=== PATIENT | female | born 1950 | race Caucasian/White ===

== ENCOUNTER → 2020-05-23 11:57 | Outpatient (BNVA) | payer MEDICARE, SELFPAY | PROVIDERS: PCP Internal Medicine; Referring Provider Internal Medicine; Visit Provider Internal Medicine Endocrinology, Diabetes & Metabolism | DX: Z13.89 Encounter for screening for other disorder (principal) | CPT/HCPCS: Q3014 ==

== ENCOUNTER 2020-06-06 12:49 | Emergency (ER) | payer MEDICARE, SELFPAY ==
--- NOTE | 2020-06-06 13:38 | ECG_ITS ---
Test Reason : DIZINESS Blood Pressure : / mmHG Vent. Rate : 080 BPM Atrial Rate : 080 BPM P-R Int : 136 ms QRS Dur : 086 ms QT Int : 378 ms P-R-T Axes : 057 010 003 degrees QTc Int : 435 ms Normal sinus rhythm Normal ECG When compared with ECG of 16-MAR-2019 14:21, No significant change was found Referred By: Christofer Wheatley Electronically Signed By:MEGAN AVALOS MD
--- NOTE | 2020-06-06 13:38 | XR_ITS ---
EXAMINATION: XR CHEST CLINICAL INFORMATION: Dizziness, pain COMPARISON: Chest radiographs 03/16/2019, 11/15/2018 TECHNIQUE: Portable semiupright AP view of the chest was obtained. FINDINGS: The lungs are clear. The vascularity is normal. There is no pneumothorax or pleural reaction. No airspace consolidation or groundglass opacity. No effusion. The costophrenic sulci are well-defined. The heart is normal in size. The hilar and mediastinal contours are normal. There is a mild levocurvature thoracic spine. XR/XR chest 1V IMPRESSION: Unremarkable examination.
--- NOTE | 2020-06-06 13:47 | ED_ITS ---
HPI - Dizziness General Chief Complaint: General Medical <Christofer Wheatley NP - Last Filed: 06/06/20 17:41> Stated Complaint: high blood pressure <Christofer Wheatley NP - Last Filed: 06/06/20 17:41> Time Seen by Provider: 06/06/20 12:51 <Christofer Wheatley NP - Last Filed: 06/06/20 17:41> Source: patient <Christofer Wheatley NP - Last Filed: 06/06/20 17:41> Mode of arrival: ambulatory <Christofer Wheatley NP - Last Filed: 06/06/20 17:41> Limitations: no limitations <Christofer Wheatley NP - Last Filed: 06/06/20 17:41> History of Present Illness HPI Narrative: This is a 69-year-old female who speaks primarily Wolof but does understand Welsh enough to communicate however intelligence clerk present she has a history of insulin-dependent diabetes, hypertension, hyperlipidemia, migraine headaches, osteoporosis, chronic back pain, fibromyalgia, anxiety and depression she presents ambulatory via triage from her primary care doctor's office with complaint of on and off dizziness as well as some nausea, sweating, palpitation since yesterday she went to her primary care doctor for this with these complaints and reported that she awfully gets these symptoms in the morning when she takes her Diovan. Noted to have blood pressure 210/98 in the office subsequently had an EKG that was nondiagnostic and advised to come here given her constellation of symptoms. upon arrival intelligence clerk present for interview she reports to me that she has a RN TRAVEL that helps her however the RN TRAVEL takes care of 3 other individuals and she is in her house and is afraid that she might give her COVID- 19. States she has been increasingly anxious and has slept in over 24 hours because of this thought. She does report some slight rhinorrhea and congestion for past couple of days which she completed beats to seasonal change. She denies any chest pain or shortness of breath right now. No fever or chills. <Christofer Wheatley NP - Last Filed: 06/06/20 17:41> Related Data Home Medications: Home Medications Medication Instructions Recorded Confirmed albuterol sulfate 90 mcg/actuation 0 mcg INHALATION 05/23/20 05/23/20 aerosol inhaler aspirin 81 mg tablet,delayed 81 mg PO DAILY 05/23/20 05/23/20 release cholecalciferol (vitamin D3) 50 50 mcg PO DAILY 05/23/20 05/23/20 mcg (2,000 unit) capsule citalopram 10 mg tablet 10 mg PO DAILY 05/23/20 05/23/20 clonazepam 0.5 mg tablet 0.5 mg PO DAILY PRN 05/23/20 05/23/20 insulin glargine 100 unit/mL (3 30 unit SUBCUT QPM ml 05/23/20 05/23/20 mL) subcutaneous pen lancets 33 gauge #100 ea 05/23/20 05/23/20 meloxicam 15 mg tablet 15 mg PO DAILY 05/23/20 05/23/20 metformin 850 mg tablet 850 mg PO BID 05/23/20 05/23/20 peg [id number] 1 1 drp OPHTHALMIC (EYE) DAILY ml 05/23/20 05/23/20 %-0.2 %-0.2 % eye drops pen needle, diabetic 32 gauge x #50 ea 05/23/20 05/23/20 5/32 polyvinyl alcohol 1.4 % eye drops 1 drp OPHTHALMIC (EYE) TID 05/23/20 05/23/20 topiramate 50 mg tablet 50 mg PO BID 05/23/20 05/23/20 valsartan 160 mg tablet 160 mg PO DAILY 05/23/20 05/23/20 white petrolatum-mineral oil 83 1 applic OPHTHALMIC (EYE) DAILY 05/23/20 %-15 % eye ointment PRN g Previous Rx's Medication Instructions Recorded blood sugar diagnostic #150 ea 05/18/20 simvastatin 40 mg tablet 40 mg PO BEDTIME 30 Days #30 tab 05/18/20 cholecalciferol (vitamin D3) 50 50 mcg PO DAILY 30 Days #30 cap 05/23/20 mcg (2,000 unit) capsule insulin lispro 100 unit/mL See Rx Instructions SUBCUT TID 30 06/18/20 subcutaneous pen Days #15 ml <Christofer Wheatley NP - Last Filed: 06/06/20 17:41> Allergies/Adverse Reactions: Allergies Allergy/AdvReac Type Severity Reaction Status Date / Time homosalate [From Coppertone] Allergy Mild RASH Unverified 03/22/20 15:57 octinoxate [From Coppertone] Allergy Mild RASH Unverified 03/22/20 15:57 oxybenzone [From Coppertone] Allergy Mild RASH Unverified 03/22/20 15:57 diovan Allergy Unknown rash Uncoded 02/14/20 00:00 suntan lotion Allergy Unknown rash Uncoded 02/14/20 00:00 <Christofer Wheatley NP - Last Filed: 06/06/20 17:41> Review of Systems Review of Systems: Constitutional: No Weight loss, No Fever, No Chills, No Night Sweats, No Fatigue, No Malaise ENT/Mouth: No Hearing loss, No Ear Pain, No Nasal Congestion, No Sinus Pain, No Hoarseness, No sore throat, No Rhinorrhea, No Swallowing Difficulty Eyes: No Eye Pain, No Swelling, No Redness, No Foreign Body, No Discharge, No Vision Changes Cardiovascular: No Chest Pain, No SOB, No Dyspnea on Exertion, No Orthopnea, No Edema, No Palpitations Respiratory: No Cough, No Sputum, No Wheezing, No Smoke Exposure, No Dyspnea Gastrointestinal: No Nausea, No Vomiting, No Diarrhea, No Constipation, No a bdominal Pain, No Hematochezia, No Melena Genitourinary: no irregular bleeding, No Dysuria, No Urinary Frequency, No Hematuria, No Urinary Incontinence, No Urgency, No Flank Pain, No Urinary Flow Changes, No Hesitancy Musculoskeletal: No joint pain, No Myalgias, No Joint Swelling Skin: No Skin Lesions, No rash Neuro: No Weakness, No Numbness, No Paresthesias, No Loss of Consciousness, No Dizziness, No Headache Psych: No Anxiety/Panic, No Depression, No SI/HI/AH/VH, No Social Issues, Heme/Lymph: No Bruising, No Bleeding,No Lymphadenopathy Endocrine: No Polyuria, No Polydipsia, No Temperature Intolerance <Christofer Wheatley NP - Last Filed: 06/06/20 17:41> Yes all other systems are reviewed and are negative <Christofer Wheatley NP - Last Filed: 06/06/20 17:41> [facility] Past Medical History Medical History: Medical History (Updated 06/07/20 @ 00:00 by Jorge Dafabiola) Depression Diabetes type 2, uncontrolled Diabetic polyneuropathy associated with type 2 diabetes mellitus Dyslipidemia Fibromyalgia Hypertension 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 Lung cancer Obesity (BMI 30-39.9) Vitamin D deficiency <Christofer Wheatley NP - Last Filed: 06/06/20 17:41> Surgical History: Surgical History (Updated 05/23/20 @ 11:51 by VITALIY Magallon) No pertinent past surgical history <Christofer Wheatley NP - Last Filed: 06/06/20 17:41> Family History Family History: Family History (Updated 05/23/20 @ 11:58 by VITALIY Magallon) Father Osteoporosis Mother Stroke Cancer <Christofer Wheatley NP - Last Filed: 06/06/20 17:41> Social History Social History: Social History (Updated 05/23/20 @ 11:51 by VITALIY Magallon) Smoking Status: Former smoker Advance Directives: No Advance Directives Information Provided: No <Christofer Wheatley NP - Last Filed: 06/06/20 17:41> Physical Exam Vital Signs: Vital Signs: Last Vital Signs Temp 98 F 06/06/20 14:49 Pulse 81 06/06/20 14:49 Resp 16 06/06/20 14:49 BP 133/71 06/06/20 14:49 Pulse Ox 97 06/06/20 14:49 Body Mass Index 25.0 Reviewed <Christofer Wheatley NP - Last Filed: 06/06/20 17:41> Vital Signs: Last Vital Signs Temp 98 F 06/06/20 14:49 Pulse 81 06/06/20 14:49 Resp 16 06/06/20 14:49 BP 133/71 06/06/20 14:49 Pulse Ox 97 06/06/20 14:49 Body Mass Index 25.0 <Drew Negrete MD - Last Filed: 06/29/20 08:18> Const: Other: Became tearful right away and more tearful when she told a story of her RN TRAVEL coming to her house and may give her COVID-19 <Christofer Wheatley NP - Last Filed: 06/06/20 17:41> General: cooperative; No acute distress or intoxicated appearing <Christofer Wheatley NP - Last Filed: 06/06/20 17:41> Nutritional Appearance: average body habitus <Christofer Wheatley NP - Last Filed: 06/06/20 17:41> Orientation/consciousness: patient oriented x3 <[facility] Wheatley - Last Filed: 06/06/20 17:41> HENMT: Head: Yes normal to inspection <[facility] Wheatley - Last Filed: 06/06/20 17:41> Ears: hearing grossly normal bilaterally <[facility] Wheatley - Last Filed: 06/06/20 17:41> Eyes: General: appearance normal, both eyes and all related structures <[facility] Wheatley - Last Filed: 06/06/20 17:41> Visual Chan: normal visual chan by confrontation <[facility] Whaetley, - Last Filed: 06/06/20 17:41> Neck: Neck: Yes normal visual inspection and No tender <[facility] Wheatley - Last Filed: 06/06/20 17:41> Thyroid: Thyroid normal [facility] Last Filed: 06/06/20 17:41> Chest: Chest palpation & inspection: normal inspection of the chest <[facility] Wheatley, - Last Filed: 06/06/20 17:41> Resp: Effort & Inspection: normal respiratory effort <[facility] Wheatley, - Last Filed: 06/06/20 17:41> Auscultation: clear to auscultation bilaterally <[facility] Wheatley - Last Filed: 06/06/20 17:41> Cardio: Jugular venous distension: no JVD <[facility] Dioni - Last Filed: 06/06/20 17:41> Rate: regular rate <[facility] Wheatley, - Last Filed: 06/06/20 17:41> Rhythm: regular rhythm [facility] - Last Filed: 06/06/20 17:41> Heart sounds: S1 normal heart sound present <[facility] Dioni - Last Filed: 06/06/20 17:41> GI: Inspection: Yes normal to inspection <[facility] - Last Filed: 06/06/20 17:41> Percussion: Yes normal to percussion <[facility] Dioni - Last Filed: 06/06/20 17:41> Auscultation: normal bowel sounds <Christofer Wheatley NP - Last Filed: 06/06/20 17:41> : General: Yes no CVA tenderness <Christofer Wheatley NP - Last Filed: 06/06/20 17:41> Back/Spine/Pelvis: Back: no CVA tenderness <Christofer Wheatley NP - Last Filed: 06/06/20 17:41> Skin: General skin exam: no rashes or lesions noted <Christofer Wheatley NP - Last Filed: 06/06/20 17:41> Neuro: General: patient oriented x3 <Christofer Wheatley NP - Last Filed: 06/06/20 17:41> Extrem: General: Yes normal to inspection <Christofer Wheatley NP - Last Filed: 06/06/20 17:41> Course Course Course Narrative: I have reviewed the chart <Drew Negrete MD - Last Filed: 06/29/20 08:18> MDM - Dizziness MDM Narrative Medical decision making narrative: labs overall stable including serial tropes given her cardiac risk factors / heart score this was negative. Blood pressure improved with 0.5 mg of Ativan she was much calmer and her blood pressure is 136/70 after the Ativan. Patient resting comfortably states she feels much less anxious and better now. Advised that COVID-19 is pending she has no complaints of pain or discomfort. Hemodynamically stable. Pulse ox 100%. Will discharge home with clear precaution return follow-up instructions. medical services assistant//support offered here she will follow-up with her PCP. <Christofer Wheatley NP - Last Filed: 06/06/20 17:41> Medical Records Attestation: I reviewed the patient's medical records. <Chrsitofer Wheatley NP - Last Filed: 06/06/20 17:41> Lab Data Attestation: I reviewed the patient's lab results. <Christofer Wheatley NP - Last Filed: 06/06/20 17:41> Result diagrams: : 06/06/20 14:20 06/06/20 15:40 <Christofer Wheatley NP - Last Filed: 06/06/20 17:41> Labs: Lab Results 06/06/20 06/06/20 06/06/20 Range/Units 14:20 14:20 14:20 WBC 9.4 (4.8-10.8) X10*3/uL RBC 4.60 (4.20-5.50) X10*6/uL Hgb 14.2 (12.0-16.0) g/dl Hct 42.6 (37-47) % MCV 92.6 (80-98) fL MCH 30.9 (27.0-33.0) pg MCHC 33.3 (31.0-35.0) g/dl RDW 12.1 (11.0-16.0) % Plt Count 254 (160-400) X10*3/uL MPV 11.6 (9.4-12.3) fL Immature Gran % (Auto) 0.2 (0.0-0.4) % Neut % (Auto) 75.5 H (45-73) % Lymph % (Auto) 20.2 (20-40) % [place] % (Auto) 3.9 (2-11) % Eos % (Auto) 0.1 (0-4) % Baso % (Auto) 0.1 (0-2) % Lymph # (Auto) 1.9 (1.2-4.9) X10*3/uL [place] # (Auto) 0.4 (0.1-1.2) X10*3/uL Eos # (Auto) 0.0 (0.0-0.4) X10*3/uL Baso # (Auto) 0.0 (0.0-0.2) X10*3/uL Abs Immat Gran (auto) 0.02 (0.00-0.03) X10*3/uL Absolute Neuts (auto) 7.1 (2.0-8.3) X10*3/uL Absolute Nucleated RBC 0.000 (0.0-0.012) X10*3/uL Nucleated RBC % (auto) 0.0 (0.0-0.2) /100WBC PT (10.8-13.0) SEC INR (0.9-1.1) APTT (24.1-38.0) SEC Sodium Cancelled Potassium Cancelled Chloride Cancelled Carbon Dioxide Cancelled Anion Gap Cancelled BUN Cancelled Creatinine Cancelled Estim Creat Clear Calc Cancelled Estimated GFR Cancelled Random Glucose Cancelled Calcium Cancelled Magnesium Cancelled Total Bilirubin Cancelled AST Cancelled ALT Cancelled Alkaline Phosphatase Cancelled Troponin I High Sens 4.8 (<3.5-17.0) ng/L Total Protein Cancelled Albumin Cancelled TSH Cancelled Urine Opiates Screen (Not Detect) Ur Barbiturates Screen (Not Detect) Ur Phencyclidine Scrn (Not Detect) Ur Amphetamines Screen (Not Detect) U Benzodiazepines Scrn (Not Detect) Urine Cocaine Screen (Not Detect) U Marijuana (THC) Screen (Not Detect) SARS-CoV-2 (PCR) (NOT DETECTED) 06/06/20 06/06/20 06/06/20 Range/Units 14:20 14:20 15:23 WBC (4.8-10.8) X10*3/uL RBC (4.20-5.50) X10*6/uL Hgb (12.0-16.0) g/dl Hct (37-47) % MCV (80-98) fL MCH (27.0-33.0) pg MCHC (31.0-35.0) g/dl RDW (11.0-16.0) % Plt Count (160-400) X10*3/uL MPV (9.4-12.3) fL Immature Gran % (Auto) (0.0-0.4) % Neut % (Auto) (45-73) % Lymph % (Auto) (20-40) % [place] % (Auto) (2-11) % Eos % (Auto) (0-4) % Baso % (Auto) (0-2) % Lymph # (Auto) (1.2-4.9) X10*3/uL [place] # (Auto) (0.1-1.2) X10*3/uL Eos # (Auto) (0.0-0.4) X10*3/uL Baso # (Auto) (0.0-0.2) X10*3/uL Abs Immat Gran (auto) (0.00-0.03) X10*3/uL Absolute Neuts (auto) (2.0-8.3) X10*3/uL Absolute Nucleated RBC (0.0-0.012) X10*3/uL Nucleated RBC % (auto) (0.0-0.2) /100WBC PT 13.2 H (10.8-13.0) SEC INR 1.1 (0.9-1.1) APTT 30.7 (24.1-38.0) SEC Sodium Potassium Chloride Carbon Dioxide Anion Gap BUN Creatinine Estim Creat Clear Calc Estimated GFR Random Glucose Calcium Magnesium Total Bilirubin AST ALT Alkaline Phosphatase Troponin I High Sens Cancelled (<3.5-17.0) ng/L Total Protein Albumin TSH Urine Opiates Screen Not Detected (Not Detect) Ur Barbiturates Screen Not Detected (Not Detect) Ur Phencyclidine Scrn Not Detected (Not Detect) Ur Amphetamines Screen Not Detected (Not Detect) U Benzodiazepines Scrn Not Detected (Not Detect) Urine Cocaine Screen Not Detected (Not Detect) U Marijuana (THC) Screen Not Detected (Not Detect) SARS-CoV-2 (PCR) (NOT DETECTED) 06/06/20 06/06/20 06/06/20 Range/Units 15:40 15:40 17:01 WBC (4.8-10.8) X10*3/uL RBC (4.20-5.50) X10*6/uL Hgb (12.0-16.0) g/dl Hct (37-47) % MCV (80-98) fL MCH (27.0-33.0) pg MCHC (31.0-35.0) g/dl RDW (11.0-16.0) % Plt Count (160-400) X10*3/uL MPV (9.4-12.3) fL Immature Gran % (Auto) (0.0-0.4) % Neut % (Auto) (45-73) % Lymph % (Auto) (20-40) % [place] % (Auto) (2-11) % Eos % (Auto) (0-4) % Baso % (Auto) (0-2) % Lymph # (Auto) (1.2-4.9) X10*3/uL [place] # (Auto) (0.1-1.2) X10*3/uL Eos # (Auto) (0.0-0.4) X10*3/uL Baso # (Auto) (0.0-0.2) X10*3/uL Abs Immat Gran (auto) (0.00-0.03) X10*3/uL Absolute Neuts (auto) (2.0-8.3) X10*3/uL Absolute Nucleated RBC (0.0-0.012) X10*3/uL Nucleated RBC % (auto) (0.0-0.2) /100WBC PT (10.8-13.0) SEC INR (0.9-1.1) APTT (24.1-38.0) SEC Sodium 135 Potassium 4.7 Chloride 101 Carbon Dioxide 28 Anion Gap 11 L BUN 10 Creatinine 0.79 Estim Creat Clear Calc 67.2 Estimated GFR > 60 Random Glucose 303 H Calcium 8.7 Magnesium 1.9 Total Bilirubin 0.5 AST 21 ALT 25 Alkaline Phosphatase 74 Troponin I High Sens 5.0 (<3.5-17.0) ng/L Total Protein 7.2 Albumin 3.9 TSH 0.86 Urine Opiates Screen (Not Detect) Ur Barbiturates Screen (Not Detect) Ur Phencyclidine Scrn (Not Detect) Ur Amphetamines Screen (Not Detect) U Benzodiazepines Scrn (Not Detect) Urine Cocaine Screen (Not Detect) U Marijuana (THC) Screen (Not Detect) SARS-CoV-2 (PCR) NOT DETECTED (NOT DETECTED) <Christofer Wheatley [employer] - Last Filed: 06/06/20 17:41> Lab Results 06/06/20 06/06/20 06/06/20 Range/Units 14:20 14:20 14:20 WBC 9.4 (4.8-10.8) X10*3/uL RBC 4.60 (4.20-5.50) X10*6/uL Hgb 14.2 (12.0-16.0) g/dl Hct 42.6 (37-47) % MCV 92.6 (80-98) fL MCH 30.9 (27.0-33.0) pg MCHC 33.3 (31.0-35.0) g/dl RDW 12.1 (11.0-16.0) % Plt Count 254 (160-400) X10*3/uL MPV 11.6 (9.4-12.3) fL Immature Gran % (Auto) 0.2 (0.0-0.4) % Neut % (Auto) 75.5 H (45-73) % Lymph % (Auto) 20.2 (20-40) % [place] % (Auto) 3.9 (2-11) % Eos % (Auto) 0.1 (0-4) % Baso % (Auto) 0.1 (0-2) % Lymph # (Auto) 1.9 (1.2-4.9) X10*3/uL [place] # (Auto) 0.4 (0.1-1.2) X10*3/uL Eos # (Auto) 0.0 (0.0-0.4) X10*3/uL Baso # (Auto) 0.0 (0.0-0.2) X10*3/uL Abs Immat Gran (auto) 0.02 (0.00-0.03) X10*3/uL Absolute Neuts (auto) 7.1 (2.0-8.3) X10*3/uL Absolute Nucleated RBC 0.000 (0.0-0.012) X10*3/uL Nucleated RBC % (auto) 0.0 (0.0-0.2) /100WBC PT (10.8-13.0) SEC INR (0.9-1.1) APTT (24.1-38.0) SEC Sodium Cancelled Potassium Cancelled Chloride Cancelled Carbon Dioxide Cancelled Anion Gap Cancelled BUN Cancelled Creatinine Cancelled Estim Creat Clear Calc Cancelled Estimated GFR Cancelled Random Glucose Cancelled Calcium Cancelled Magnesium Cancelled Total Bilirubin Cancelled AST Cancelled ALT Cancelled Alkaline Phosphatase Cancelled Troponin I High Sens 4.8 (<3.5-17.0) ng/L Total Protein Cancelled Albumin Cancelled TSH Cancelled Urine Opiates Screen (Not Detect) Ur Barbiturates Screen (Not Detect) Ur Phencyclidine Scrn (Not Detect) Ur Amphetamines Screen (Not Detect) U Benzodiazepines Scrn (Not Detect) Urine Cocaine Screen (Not Detect) U Marijuana (THC) Screen (Not Detect) SARS-CoV-2 (PCR) (NOT DETECTED) 06/06/20 06/06/20 06/06/20 Range/Units 14:20 14:20 15:23 WBC (4.8-10.8) X10*3/uL RBC (4.20-5.50) X10*6/uL Hgb (12.0-16.0) g/dl Hct (37-47) % MCV (80-98) fL MCH (27.0-33.0) pg MCHC (31.0-35.0) g/dl RDW (11.0-16.0) % Plt Count (160-400) X10*3/uL MPV (9.4-12.3) fL Immature Gran % (Auto) (0.0-0.4) % Neut % (Auto) (45-73) % Lymph % (Auto) (20-40) % [place] % (Auto) (2-11) % Eos % (Auto) (0-4) % Baso % (Auto) (0-2) % Lymph # (Auto) (1.2-4.9) X10*3/uL [place] # (Auto) (0.1-1.2) X10*3/uL Eos # (Auto) (0.0-0.4) X10*3/uL Baso # (Auto) (0.0-0.2) X10*3/uL Abs Immat Gran (auto) (0.00-0.03) X10*3/uL Absolute Neuts (auto) (2.0-8.3) X10*3/uL Absolute Nucleated RBC (0.0-0.012) X10*3/uL Nucleated RBC % (auto) (0.0-0.2) /100WBC PT 13.2 H (10.8-13.0) SEC INR 1.1 (0.9-1.1) APTT 30.7 (24.1-38.0) SEC Sodium Potassium Chloride Carbon Dioxide Anion Gap BUN Creatinine Estim Creat Clear Calc Estimated GFR Random Glucose Calcium Magnesium Total Bilirubin AST ALT Alkaline Phosphatase Troponin I High Sens Cancelled (<3.5-17.0) ng/L Total Protein Albumin TSH Urine Opiates Screen Not Detected (Not Detect) Ur Barbiturates Screen Not Detected (Not Detect) Ur Phencyclidine Scrn Not Detected (Not Detect) Ur Amphetamines Screen Not Detected (Not Detect) U Benzodiazepines Scrn Not Detected (Not Detect) Urine Cocaine Screen Not Detected (Not Detect) U Marijuana (THC) Screen Not Detected (Not Detect) SARS-CoV-2 (PCR) (NOT DETECTED) 06/06/20 06/06/2020 Range/Units 15:40 15:40 17:01 WBC (4.8-10.8) X10*3/uL RBC (4.20-5.50) X10*6/uL Hgb (12.0-16.0) g/dl Hct (37-47) % MCV (80-98) fL MCH (27.0-33.0) pg MCHC (31.0-35.0) g/dl RDW (11.0-16.0) % Plt Count (160-400) X10*3/uL MPV (9.4-12.3) fL Immature Gran % (Auto) (0.0-0.4) % Neut % (Auto) (45-73) % Lymph % (Auto) (20-40) % [place] % (Auto) (2-11) % Eos % (Auto) (0-4) % Baso % (Auto) (0-2) % Lymph # (Auto) (1.2-4.9) X10*3/uL [place] # (Auto) (0.1-1.2) X10*3/uL Eos # (Auto) (0.0-0.4) X10*3/uL Baso # (Auto) (0.0-0.2) X10*3/uL Abs Immat Gran (auto) (0.00-0.03) X10*3/uL Absolute Neuts (auto) (2.0-8.3) X10*3/uL Absolute Nucleated RBC (0.0-0.012) X10*3/uL Nucleated RBC % (auto) (0.0-0.2) /100WBC PT (10.8-13.0) SEC INR (0.9-1.1) APTT (24.1-38.0) SEC Sodium 135 Potassium 4.7 Chloride 101 Carbon Dioxide 28 Anion Gap 11 L BUN 10 Creatinine 0.79 Estim Creat Clear Calc 67.2 Estimated GFR > 60 Random Glucose 303 H Calcium 8.7 Magnesium 1.9 Total Bilirubin 0.5 AST 21 ALT 25 Alkaline Phosphatase 74 Troponin I High Sens 5.0 (<3.5-17.0) ng/L Total Protein 7.2 Albumin 3.9 TSH 0.86 Urine Opiates Screen (Not Detect) Ur Barbiturates Screen (Not Detect) Ur Phencyclidine Scrn (Not Detect) Ur Amphetamines Screen (Not Detect) U Benzodiazepines Scrn (Not Detect) Urine Cocaine Screen (Not Detect) U Marijuana (THC) Screen (Not Detect) SARS-CoV-2 (PCR) NOT DETECTED (NOT DETECTED) <Drew Negrete MD - Last Filed: 06/29/20 08:18> Discharge Plan Discharge Clinical Impression: Anxiety about health, Anxiety disorder Hypertension Qualifiers: Hypertension type: essential hypertension Qualified Code(s): I10 - Essential (primary) hypertension <Christofer Wheatley NP - Last Filed: 06/06/20 17:41> Patient Disposition: Home, Self-Care <Christofer Wheatley NP - Last Filed: 06/06/20 17:41> Instructions: Hypertension (ED), Anxiety (ED) <Christofer Wheatley NP - Last Filed: 06/06/20 17:41> Prescriptions: No Action (DME) FreeStyle Lite Strips Strip See Rx Instructions .ROUTE .MEDSUPPLY Qty: 150 RF: 5 simvastatin 40 mg tablet 40 mg PO BEDTIME 30 Days Qty: 30 RF: 5 insulin lispro [Humalog KwikPen Insulin] 100 unit/mL insulin pen See Rx Instructions subcut TID 30 Days Qty: 15 RF: 6 albuterol sulfate 90 mcg/actuation HFA aerosol inhaler 0 mcg inhalation RF: 0 (DME) pen needle, diabetic 32 gauge x 5/32 needle See Rx Instructions ea subcut .MEDSUPPLY Qty: 50 RF: 0 cholecalciferol (vitamin D3) 50 mcg (2,000 unit) capsule 50 mcg PO DAILY RF: 0 topiramate 50 mg tablet 50 mg PO BID RF: 0 Artificial Tears([id number]) 1-0.2-0.2 % drops 1 drp ophthalmic (eye) DAILY RF: 0 metformin 850 mg tablet 850 mg PO BID RF: 0 meloxicam 15 mg tablet 15 mg PO DAILY RF: 0 citalopram 10 mg tablet 10 mg PO DAILY RF: 0 Lantus Solostar U-100 Insulin 100 unit/mL (3 mL) insulin pen 30 unit subcut QPM RF: 0 (DME) lancets 33 gauge misc See Rx Instructions ea .ROUTE .MEDSUPPLY Qty: 100 RF: 0 clonazepam 0.5 mg tablet 0.5 mg PO DAILY PRNRF: 0 valsartan 160 mg tablet 160 mg PO DAILY RF: 0 polyvinyl alcohol 1.4 % drops 1 drp ophthalmic (eye) TID RF: 0 Artificial Tears (jag/min) 83-15 % ointment 1 applic ophthalmic (eye) DAILY PRNRF: 0 aspirin 81 mg tablet,delayed release (DR/EC) 81 mg PO DAILY RF: 0 cholecalciferol (vitamin D3) 50 mcg (2,000 unit) capsule 50 mcg PO DAILY 30 Days Qty: 30 RF: 6 <Christofer Wheatley NP - Last Filed: 06/06/20 17:41> Referrals: Shine Mcmanus MD [Primary Care Provider] - 3 days <Christofer Wheatley NP - Last Filed: 06/06/20 17:41> Interventions: ED Discharge Assessment Last Done: 06/06/20 17:50 <Christofer Wheatley NP - Last Filed: 06/06/20 17:41> Discharge Date/Time: 06/06/20 17:51 <Christofer Wheatley NP - Last Filed: 06/06/20 17:41>
[2020-06-06] MEDS: LORazepam 2 MG/ML VIAL 0.5 MG IVPUSH (14:27)
[2020-06-06] MEDS: 0.9 % Sodium Chloride 1,000 ML 1000 ML IV (14:28)
[2020-06-06 14:30] LABS: MANUAL DIFF FLAG NO
[2020-06-06 14:31] LABS: Basophils Percent Auto 0.1 % (0-2); Eosinophils Percent Auto 0.1 % (0-4); Hematocrit 42.6 % (37-47); Hemoglobin 14.2 g/dl (12.0-16.0); Imm Gran Abs Auto 0.02 X10*3/uL (0.00-0.03); Imm Gran Pct Auto 0.2 % (0.0-0.4); Lymphocytes Absolute Auto 1.9 X10*3/uL (1.2-4.9); Lymphocytes Percent Auto 20.2 % (20-40); Mean Corpuscular HGB Conc 33.3 g/dl (31.0-35.0); Mean Corpuscular Hemoglobin 30.9 pg (27.0-33.0); Mean Corpuscular Volume 92.6 fL (80-98); Mean Platelet Volume 11.6 fL (9.4-12.3); Monocytes Absolute Auto 0.4 X10*3/uL (0.1-1.2); Monocytes Percent Auto 3.9 % (2-11); Neutrophils Absolute Auto 7.1 X10*3/uL (2.0-8.3); Neutrophils Percent Auto 75.5 % (45-73); Platelet Count 254 X10*3/uL (160-400); Red Cell Distribution Width 12.1 % (11.0-16.0); White Blood Count 9.4 X10*3/uL (4.8-10.8)
[2020-06-06 14:36] VITALS: BP 115/70; PULSE 105; RESP 12; TEMP 36.6; O2SAT 98
[2020-06-06 14:38] LABS: INTERNATIONAL NORM RATIO 1.1 (0.9-1.1); Prothrombin Time 13.2 SEC (10.8-13.0)
[2020-06-06 14:40] LABS: Partial Thromboplastin Time 30.7 SEC (24.1-38.0)
[2020-06-06 14:43] VITALS: BP 147/74; PULSE 80; RESP 15; O2SAT 98
[2020-06-06 14:49] VITALS: BP 133/71; PULSE 81; RESP 16; TEMP 36.6; O2SAT 97; BMI 25.0
[2020-06-06 14:58] LABS: Troponin-I High Sensitivity 4.8 ng/L (<3.5-17.0)
[2020-06-06 15:05] LABS: Amphetamine Screen Urine Not Detected (Not Detect); Barbiturates, Urine Not Detected (Not Detect); Benzodiazepines Screen Urine Not Detected (Not Detect); Cannabinoid Screen Urine Not Detected (Not Detect); Cocaine Screen Urine Not Detected (Not Detect); Opiate Screen Urine Not Detected (Not Detect); Phencyclidine Screen Urine Not Detected (Not Detect)
--- NOTE | 2020-06-06 15:28 | PC.NURSE ---
ed triage documentation at 1457 is not for this patient
[2020-06-06 16:24] LABS: Alanine Aminotransferase 25 U/L (0-31); Albumin Level 3.9 g/dL (3.5-5.0); Alkaline Phosphatase 74 U/L (39-117); Anion Gap 11 (12-20); Aspartate Amino Transferase 21 U/L (5-31); Bilirubin Total 0.5 mg/dL (0.0-1.0); Blood Urea Nitrogen 10 mg/dL (9-16); Calcium 8.7 mg/dL (8.4-10.2); Carbon Dioxide 28 mmol/L (22-29); Chloride 101 mmol/L (96-108); Creatinine Clr Calc Pharmacy 67.2; Estimated Glomerular Filt Rate > 60; Glucose Random 303 mg/dL (60-115); Magnesium 1.9 mg/dL (1.6-2.6); Potassium 4.7 mmol/l (3.3-5.1); Sodium 135 mmol/L (135-145); Total Protein 7.2 g/dL (6.5-8.0)
[2020-06-06 16:44] LABS: Thyroid Stimulating Hormone 0.86 uIU/mL (0.32-4.0)
== END 2020-06-06 17:51 | disposition home or self-care (01) ==
PROVIDERS: Nurse Practitioner Primary Care; Emergency Provider Emergency Medicine; PCP Internal Medicine
DX: R42 Dizziness and giddiness (principal); F41.1 Generalized anxiety disorder; F43.0 Acute stress reaction; I10 Essential (primary) hypertension; Z20.828 Contact with and (suspected) exposure to other viral communicable diseases; Z87.891 Personal history of nicotine dependence
CPT/HCPCS: 36415; 71045; 80053; 80307; 83735; 84443; 84484; 85025; 85610; 85730; 93005; 96361; 96374; 99284; J2060; U0003

== ENCOUNTER 2020-07-20 03:34 | Emergency (ER) | payer MEDICARE, SELFPAY ==
[2020-07-20 03:50] VITALS: BP 154/84; PULSE 89; RESP 16; TEMP 36.7; O2SAT 98; BMI 25.8
[2020-07-20] MEDS: Acetaminophen 325 MG TABLET 975 MG PO (05:07)
[2020-07-20] MEDS: Ketorolac Tromethamine 15 MG/ML VIAL IM (05:08)
[2020-07-20] MEDS: Lidocaine 4 % Patch ADH..PATCH 1 PATCH TRANSDERMA (05:08)
[2020-07-20 05:36] LABS: MANUAL DIFF FLAG NO
[2020-07-20 05:38] LABS: Basophils Percent Auto 0.3 % (0-2); Eosinophils Absolute Auto 0.1 X10*3/uL (0.0-0.4); Eosinophils Percent Auto 0.5 % (0-4); Glucose Urine UA 100 MG/DL (NEG); Hematocrit 40.8 % (37-47); Hemoglobin 13.9 g/dl (12.0-16.0); Imm Gran Abs Auto 0.02 X10*3/uL (0.00-0.03); Imm Gran Pct Auto 0.2 % (0.0-0.4); Leukocyte Esterase Urine NEG (NEG); Lymphocytes Absolute Auto 3.3 X10*3/uL (1.2-4.9); Lymphocytes Percent Auto 27.7 % (20-40); Mean Corpuscular HGB Conc 34.1 g/dl (31.0-35.0); Mean Corpuscular Hemoglobin 31.5 pg (27.0-33.0); Mean Corpuscular Volume 92.5 fL (80-98); Mean Platelet Volume 11.2 fL (9.4-12.3); Monocytes Absolute Auto 0.6 X10*3/uL (0.1-1.2); Monocytes Percent Auto 4.9 % (2-11); Neutrophils Absolute Auto 7.8 X10*3/uL (2.0-8.3); Neutrophils Percent Auto 66.4 % (45-73); Nitrite Urine NEG (NEG); PH 6.5 (5.0-8.0); Platelet Count 232 X10*3/uL (160-400); Red Blood Count 4.41 X10*6/uL (4.20-5.50); Red Cell Distribution Width 12.2 % (11.0-16.0); Specific Gravity - Urine 1.025 (1.005-1.025); Urine Blood NEG (NEG); Urine Ketones NEG (NEG); Urine Protein NEG (NEG-TRACE); White Blood Count 11.7 X10*3/uL (4.8-10.8)
[2020-07-20 05:39] LABS: Appearance Urine CLEAR; Color Urine YELLOW; UACC Culture Trigger NO
--- NOTE | 2020-07-20 05:51 | ED_ITS ---
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 She states that the pain has been worsening over the past 8 days. Related Data Home Medications Medication Instructions Recorded Confirmed albuterol sulfate 90 mcg/actuation 0 mcg INHALATION 05/23/20 05/23/20 aerosol inhaler aspirin 81 mg tablet,delayed 81 mg PO DAILY 05/23/20 05/23/20 release cholecalciferol (vitamin D3) 50 50 mcg PO DAILY 05/23/20 05/23/20 mcg (2,000 unit) capsule citalopram 10 mg tablet 10 mg PO DAILY 05/23/20 05/23/20 clonazepam 0.5 mg tablet 0.5 mg PO DAILY PRN 05/23/20 05/23/20 insulin glargine 100 unit/mL (3 30 unit SUBCUT QPM ml 05/23/20 05/23/20 mL) subcutaneous pen lancets 33 gauge #100 ea 05/23/20 05/23/20 meloxicam 15 mg tablet 15 mg PO DAILY 05/23/20 05/23/20 metformin 850 mg tablet 850 mg PO BID 05/23/20 05/23/20 peg [id number] 1 1 drp OPHTHALMIC (EYE) DAILY ml 05/23/20 05/23/20 %-0.2 %-0.2 % eye drops pen needle, diabetic 32 gauge x #50 ea 05/23/20 05/23/20 5/32 polyvinyl alcohol 1.4 % eye drops 1 drp OPHTHALMIC (EYE) TID 05/23/20 05/23/20 topiramate 50 mg tablet 50 mg PO BID 05/23/20 05/23/20 valsartan 160 mg tablet 160 mg PO DAILY 05/23/20 05/23/20 white petrolatum-mineral oil 83 1 applic OPHTHALMIC (EYE) DAILY 05/23/20 05/23/20 %-15 % eye ointment PRN g Previous Rx's Medication Instructions Recorded blood sugar diagnostic #150 ea 05/18/20 simvastatin 40 mg tablet 40 mg PO BEDTIME 30 Days #30 tab 05/18/20 cholecalciferol (vitamin D3) 50 50 mcg PO DAILY 30 Days #30 cap 05/23/20 mcg (2,000 unit) capsule insulin lispro 100 unit/mL See Rx Instructions SUBCUT TID 30 06/18/20 subcutaneous pen Days #15 ml Allergies Allergy/AdvReac Type Severity Reaction Status Date / Time homosalate [From Coppertone] Allergy Mild RASH Unverified 03/22/20 15:57 octinoxate [From Coppertone] Allergy Mild RASH Unverified 03/22/20 15:57 oxybenzone [From Coppertone] Allergy Mild RASH Unverified 03/22/20 15:57 diovan Allergy Unknown rash Uncoded 02/14/20 00:00 suntan lotion Allergy Unknown rash Uncoded 02/14/20 00:00 Review of Systems Review of Systems: Pertinent positives and negatives as stated in HPI 10 point review of systems is otherwise negative. PMFSH Past Medical History Source: nursing notes reviewed Medical History Depression Diabetes type 2, uncontrolled Diabetic polyneuropathy associated with type 2 diabetes mellitus Dyslipidemia Fibromyalgia Hypertension senior care (current) use of insulin Lung cancer Obesity (BMI 30-39.9) Vitamin D deficiency Surgical History No pertinent past surgical history Family History Family History Father Osteoporosis Mother Stroke Cancer Social History Social History Alcohol intake: never Smoking Status: Never smoker Use of substances other than those prescribed or required for medical reasons: No Advance Directives: No Physical Exam Vital Signs: Vital Signs: Last Vital Signs Temp 98.0 F 07/20/20 03:50 Pulse 83 07/20/20 06:00 Resp 18 07/20/20 06:00 BP 151/88 H 07/20/20 06:00 Pulse Ox 100 07/20/20 06:00 Body Mass Index 25.8 VITAL SIGNS: Reviewed. GENERAL: Well developed, well nourished, in no acute distress. HEAD: Normocephalic/atraumatic, EYES: PERRLA, EOMI OROPHARYNX: no oral lesions noted, posterior pharynx clear NECK: Supple, no adenopathy LUNGS: Normal breath sounds. No adventitious sounds or accessory muscle use. SpO2<98> CARDIOVASCULAR: Regular rate and rhythm without noted murmurs, no JVD or lower extremity edema. ABDOMEN: Soft, tenderness without rebound noted the left lower quadrant, non- distended with bowel sounds. SKIN: Inspection of the skin reveals no rashes NEUROLOGIC: Alert and oriented x 4. 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 Patient provided with combination analgesics for pain control. On re-evaluation patient has had improvement of her pain symptoms with the combi nation analgesics. Review of investigations is negative for any acute findings. CT scan is negativ e for any acute findings and all results were discussed with patient at bedside with the cornice upholsterer. She was discharged home in stable condition. Medical Decision Making Lab Data Result diagrams: 07/20/20 05:32 07/20/20 05:32 Labs: Lab Results 07/20/20 07/20/20 07/20/20 Range/Units 05:32 05:32 05:32 WBC 11.7 H (4.8-10.8) X10*3/uL RBC 4.41 (4.20-5.50) X10*6/uL Hgb 13.9 (12.0-16.0) g/dl Hct 40.8 (37-47) % MCV 92.5 (80-98) fL MCH 31.5 (27.0-33.0) pg MCHC 34.1 (31.0-35.0) g/dl RDW 12.2 (11.0-16.0) % Plt Count 232 (160-400) X10*3/uL MPV 11.2 (9.4-12.3) fL Immature Gran % (Auto) 0.2 (0.0-0.4) % Neut % (Auto) 66.4 (45-73) % Lymph % (Auto) 27.7 (20-40) % [place] % (Auto) 4.9 (2-11) % Eos % (Auto) 0.5 (0-4) % Baso % (Auto) 0.3 (0-2) % Lymph # (Auto) 3.3 (1.2-4.9) X10*3/uL [place] # (Auto) 0.6 (0.1-1.2) X10*3/uL Eos # (Auto) 0.1 (0.0-0.4) X10*3/uL Baso # (Auto) 0.0 (0.0-0.2) X10*3/uL Abs Immat Gran (auto) 0.02 (0.00-0.03) X10*3/uL Absolute Neuts (auto) 7.8 (2.0-8.3) X10*3/uL Absolute Nucleated RBC 0.000 (0.0-0.012) X10*3/uL Nucleated RBC % (auto) 0.0 (0.0-0.2) /100WBC Sodium 139 (135-145) mmol/L Potassium 4.2 (3.3-5.1) mmol/l Chloride 105 (96-108) mmol/L Carbon Dioxide 23 (22-29) mmol/L Anion Gap 15 (12-20) BUN 13 (9-16) mg/dL Creatinine 0.85 (0.5-1.4) mg/dL Estim Creat Clear Calc 60.9 Estimated GFR > 60 Random Glucose 235 H (60-115) mg/dL Calcium 9.1 (8.4-10.2) mg/dL Total Bilirubin 0.3 (0.0-1.0) mg/dL AST 16 (5-31) U/L ALT 20 (0-31) U/L Alkaline Phosphatase 75 (39-117) U/L Total Protein 7.2 (6.5-8.0) g/dL Albumin 3.8 (3.5-5.0) g/dL Urine Color YELLOW Urine Appearance CLEAR Urine pH 6.5 (5.0-8.0) Ur Specific [place] 1.025 (1.005-1.025) Urine Protein NEG (NEG-TRACE) MG/DL Urine Glucose (UA) 100 H (NEG) MG/DL Urine Ketones NEG (NEG) MG/DL Urine Blood NEG (NEG) Urine Nitrite NEG (NEG) Ur Leukocyte Esterase NEG (NEG) Discharge Plan Discharge Clinical Impression: Muscle strain Patient Disposition: Home, Self-Care Instructions: Muscle Strain (ED), Musculoskeletal Pain (ED), Lower Back Exercises (ED) Additional Instructions: 1. Tylenol 1000 mg, por v?a oral, cada 6 horas seg?n sea necesario para controlar el dolor. No exceda los 4000 mg en 24 horas. 2. Ibuprofeno 400 mg, por v?a oral con leche o alimentos, cada 6 horas seg?n sea necesario para controlar el dolor. Puede usar esto en combinaci?n con Tylenol para un mayor alivio de los s?ntomas. 3. Realice un seguimiento con johnson proveedor de atenci?n primaria para obtener m?s atenci?n ambulatoria. No dude en regresar al departamento de emergencias si desarrolla cualquier empeoramiento de ludivina s?ntomas que incluya fiebre, escalofr?os, dificultad para respirar. Prescriptions: No Action (DME) FreeStyle Lite Strips Strip See Rx Instructions .ROUTE .MEDSUPPLY Qty: 150 RF: 5 simvastatin 40 mg tablet 40 mg PO BEDTIME 30 Days Qty: 30 RF: 5 insulin lispro [Humalog KwikPen Insulin] 100 unit/mL insulin pen See Rx Instructions subcut TID 30 Days Qty: 15 RF: 6 albuterol sulfate 90 mcg/actuation HFA aerosol inhaler 0 mcg inhalation RF: 0 (DME) pen needle, diabetic 32 gauge x 5/32 needle See Rx Instructions ea subcut .MEDSUPPLY Qty: 50 RF: 0 cholecalciferol (vitamin D3) 50 mcg (2,000 unit) capsule 50 mcg PO DAILY RF: 0 topiramate 50 mg tablet 50 mg PO BID RF: 0 Artificial Tears(cb-hrtr-yiza) 1-0.2-0.2 % drops 1 drp ophthalmic (eye) DAILY RF: 0 metformin 850 mg tablet 850 mg PO BID RF: 0 meloxicam 15 mg tablet 15 mg PO DAILY RF: 0 citalopram 10 mg tablet 10 mg PO DAILY RF: 0 Lantus Solostar U-100 Insulin 100 unit/mL (3 mL) insulin pen 30 unit subcut QPM RF: 0 (DME) lancets 33 gauge misc See Rx Instructions ea .ROUTE .MEDSUPPLY Qty: 100 RF: 0 clonazepam 0.5 mg tablet 0.5 mg PO DAILY PRNRF: 0 valsartan 160 mg tablet 160 mg PO DAILY RF: 0 polyvinyl alcohol 1.4 % drops 1 drp ophthalmic (eye) TID RF: 0 Artificial Tears (jag/min) 83-15 % ointment 1 applic ophthalmic (eye) DAILY PRNRF: 0 aspirin 81 mg tablet,delayed release (DR/EC) 81 mg PO DAILY RF: 0 cholecalciferol (vitamin D3) 50 mcg (2,000 unit) capsule 50 mcg PO DAILY 30 Days Qty: 30 RF: 6 Referrals: Physician,Unknown [Primary Care Provider] - 2 days Print Language: Uzbek
[2020-07-20] MEDS: diphenhydrAMINE HCL 25 MG TABLET PO (05:57)
--- NOTE | 2020-07-20 05:58 | PC.NURSE ---
pt treated with benadryl for gianluca arm rash itchy, pt states she has used the patches before and no reaction. ? im injection given for pain.
--- NOTE | 2020-07-20 05:59 | PC.NURSE ---
no swelling to oral airway, sat wnl vitals stable.
[2020-07-20 06:00] VITALS: BP 151/88; PULSE 83; RESP 18; O2SAT 100
[2020-07-20 06:06] LABS: Alanine Aminotransferase 20 U/L (0-31); Albumin Level 3.8 g/dL (3.5-5.0); Alkaline Phosphatase 75 U/L (39-117); Anion Gap 15 (12-20); Aspartate Amino Transferase 16 U/L (5-31); Bilirubin Total 0.3 mg/dL (0.0-1.0); Blood Urea Nitrogen 13 mg/dL (9-16); Calcium 9.1 mg/dL (8.4-10.2); Carbon Dioxide 23 mmol/L (22-29); Chloride 105 mmol/L (96-108); Creatinine Clr Calc Pharmacy 60.9; Estimated Glomerular Filt Rate > 60; Glucose Random 235 mg/dL (60-115); Potassium 4.2 mmol/l (3.3-5.1); Sodium 139 mmol/L (135-145); Total Protein 7.2 g/dL (6.5-8.0)
--- NOTE | 2020-07-20 06:52 | CT_ITS ---
EXAMINATION: CT ABDOMEN AND PELVIS WITHOUT CONTRAST CLINICAL INFORMATION: Left flank/quadrant pain. COMPARISON: CT abdomen and pelvis 01/26/2020 TECHNIQUE: Multidetector volumetric imaging was performed from the superior aspect of the liver through the pubic symphysis. Sagittal and coronal reformatted images were obtained on the technologist's workstation. This CT examination was performed using dose optimization techniques as appropriate, variously including the following: *Automated exposure control *Adjustment of mA and/or kV according to patient size (this includes techniques or standardized protocols for targeted exams where dose is matched to indication/reason for exam; i.e. extremities or head) *Use of iterative reconstruction technique DLP: 609 mGy-cm FINDINGS: LUNG BASES: The visualized lung bases are unremarkable. LIVER, GALLBLADDER, AND BILIARY TREE: The liver is normal in size, shape, and attenuation. No focal hepatic lesion or biliary ductal dilatation is present. The gallbladder is unremarkable with no evidence of radiopaque gallstones, gallbladder wall thickening, or obvious pericholecystic inflammatory changes. PANCREAS: Unremarkable. SPLEEN: Unremarkable. ADRENAL GLANDS: Unremarkable. KIDNEYS AND URETERS: The kidneys are normal in size, shape, and attenuation. No hydronephrosis, hydroureter, or calculi seen. No perinephric stranding. There are phleboliths seen in the pelvis adjacent to the left distal ureter but no focal dilatation of the aorta seen. BLADDER: Unremarkable. GASTROINTESTINAL TRACT: There is scattered stool and gas seen throughout the colon without significant distention. The small bowel loops are normal caliber. Appendix is normal with small phlebolith within. No free fluid or free air seen. ABDOMINAL WALL: No significant hernia is appreciated. LYMPH NODES: Normal. VASCULAR: Unremarkable. PELVIC VISCERA: Unremarkable. OSSEOUS STRUCTURES: There is no lytic or sclerotic process seen. There is mild bilateral L4-L5 and L5-S1 facet joint arthropathy. Grade 1 anterolisthesis of L4 over L5 is noted. CT/CT abdomen pelvis wo con IMPRESSION: No acute intra-abdominal process seen. Mild constipation. Scattered phleboliths in the pelvis. No major change from previous CT abdomen pelvis exam 01/26/2020
== END 2020-07-20 08:35 | disposition home or self-care (01) ==
PROVIDERS: Emergency Provider Student in an Organized Health Care Education/Training Program
DX: S39.012A Strain of muscle, fascia and tendon of lower back, initial encounter (principal); X58.XXXA Exposure to other specified factors, initial encounter; E11.9 Type 2 diabetes mellitus without complications; I10 Essential (primary) hypertension; Y93.9 Activity, unspecified; Y92.9 Unspecified place or not applicable; Y99.9 Unspecified external cause status; Z85.118 Personal history of other malignant neoplasm of bronchus and lung; Z79.4 Long term (current) use of insulin
CPT/HCPCS: 36415; 74176; 80053; 81003; 85025; 96372; 99284; J1885; Q0163

== ENCOUNTER → 2020-09-12 10:52 | Outpatient (BNVA) | payer MEDICARE, SELFPAY | PROVIDERS: Visit Provider Urology | DX: Z13.89 Encounter for screening for other disorder (principal) | CPT/HCPCS: 99202 ==

== ENCOUNTER → 2020-09-17 09:51 | Outpatient (BNVA) | payer MEDICARE, SELFPAY | PROVIDERS: PCP Internal Medicine; Visit Provider Internal Medicine Endocrinology, Diabetes & Metabolism | DX: Z13.89 Encounter for screening for other disorder (principal) | CPT/HCPCS: Q3014 ==

== ENCOUNTER 2020-09-19 10:17 | Outpatient (REF) | payer MEDICARE, SELFPAY ==
[2020-09-19 11:38] LABS: Estimated Average Glucose 223 mg/dL; Hemoglobin A1c % 9.4 %
[2020-09-19 12:04] LABS: Alanine Aminotransferase 20 U/L (0-31); Albumin Level 4.2 g/dL (3.5-5.0); Alkaline Phosphatase 75 U/L (39-117); Anion Gap 14 (12-20); Aspartate Amino Transferase 17 U/L (5-31); Bilirubin Total 0.6 mg/dL (0.0-1.0); Blood Urea Nitrogen 17 mg/dL (9-16); Calcium 9.3 mg/dL (8.4-10.2); Carbon Dioxide 24 mmol/L (22-29); Chloride 105 mmol/L (96-108); Estimated Glomerular Filt Rate > 60; Glucose Fasting 164 mg/dL (60-99); Potassium 4.2 mmol/L (3.3-5.1); Sodium 139 mmol/L (135-145); Total Protein 7.5 g/dL (6.5-8.0)
[2020-09-19 12:11] LABS: Vitamin D 25-OH Total 22.7 ng/mL (>30)
== END 2020-09-19 10:18 | disposition home or self-care (01) ==
LOC: HO.LAB 10:17
PROVIDERS: PCP Internal Medicine; Visit Provider Internal Medicine Endocrinology, Diabetes & Metabolism
DX: E11.65 Type 2 diabetes mellitus with hyperglycemia (principal)
CPT/HCPCS: 36415; 80053; 82306; 83036

== ENCOUNTER 2020-09-29 15:32 | Emergency (ER) | payer MEDICARE, SELFPAY ==
--- NOTE | ~2020-09-29 | US_ITS ---
EXAMINATION: US VENOUS ULTRASOUND WITH DOPPLER LOWER EXTREMITY, LEFT CLINICAL INFORMATION: Left leg pain with history of DVT COMPARISON: None TECHNIQUE: Ultrasound of the deep veins is performed from the hip to the calf with compression sonography and color and pulse Doppler assessment. Spectral analysis with color-flow imaging is performed. FINDINGS: There is normal venous compression and respiratory variation and augmented flow. The visualized common femoral vein, superficial femoral vein, profunda femoral vein, popliteal vein, and the trifurcation region shows no evidence of deep venous thrombosis. There is no significant popliteal fossa cyst. If the patient's symptoms persist, followup ultrasound in 5 days 7 days might be of value to exclude proximal propagation from a non-visualized calf vein. US/US venous duplex LE IMPRESSION: No DVT demonstrated in the left lower extremity.
[2020-09-29 15:36] VITALS: BP 170/79; PULSE 91; RESP 18; TEMP 36.8; O2SAT 96; BMI 25.7
--- NOTE | 2020-09-29 17:18 | ED_ITS ---
HPI - General Adult General Chief complaint: Abdominal Pain Stated complaint: lower abd pain Time Seen by Provider: 09/29/20 16:45 Source: patient Mode of arrival: ambulatory Limitations: no limitations History of Present Illness HPI narrative: Patient comes emergency room complaining of left thigh pain for the last 3 months, constant pain, states she has not been able to sleep for 3 months, denies acute worsening symptoms. States sometimes the pain is so bad it makes her nauseous, denies vomiting or diarrhea. Denies abdominal pain. Patient denies any trauma. Patient states she has been prescribed pain med ication for her left leg pain, but states that nothing works. Patient states that she has good sensation in both feet, denies distal lower extremity pain. Patient states she has no new symptoms, pain has been constant for 3 months. Related Data Home Medications Medication Instructions Recorded Confirmed aspirin 81 mg tablet,delayed 81 mg PO DAILY 05/23/20 09/17/20 release citalopram 10 mg tablet 10 mg PO DAILY 05/23/20 09/17/20 clonazepam 0.5 mg tablet 0.5 mg PO DAILY PRN 05/23/20 09/17/20 lancets 33 gauge #100 ea 05/23/20 09/17/20 peg [id number] 1 1 drp OPHTHALMIC (EYE) DAILY ml 05/23/20 %-0.2 %-0.2 % eye drops pen needle, diabetic 32 gauge x #50 ea 05/23/20 09/17/20 5/32 polyvinyl alcohol 1.4 % eye drops 1 drp OPHTHALMIC (EYE) TID 05/23/20 09/17/20 topiramate 50 mg tablet 50 mg PO BID 05/23/20 09/17/20 valsartan 160 mg tablet 160 mg PO DAILY 05/23/20 09/17/20 white petrolatum-mineral oil 83 1 applic OPHTHALMIC (EYE) DAILY 05/23/20 09/17/20 %-15 % eye ointment PRN g albuterol sulfate 90 mcg/actuation 2 inh INHALATION PRN g 09/17/20 09/17/20 aerosol inhaler Previous Rx's Medication Instructions Recorded blood sugar diagnostic #150 ea 05/18/20 simvastatin 40 mg tablet 40 mg PO BEDTIME 30 Days #30 tab 05/18/20 meloxicam 15 mg tablet 15 mg PO DAILY 30 Days #30 tab 09/12/20 insulin glargine 100 unit/mL (3 30 unit SUBCUT QPM 30 Days #15 ml 09/17/20 mL) subcutaneous pen metformin 850 mg tablet 850 mg PO BID 30 Days #60 tab 09/17/20 cholecalciferol (vitamin D3) 50 50 mcg PO DAILY 30 Days #30 cap 09/25/20 mcg (2,000 unit) capsule tramadol 50 mg PO BID PRN #5 tab 09/29/20 Allergies Allergy/AdvReac Type Severity Reaction Status Date / Time homosalate [From Coppertone] Allergy Mild RASH Unverified 09/12/20 11:16 octinoxate [From Coppertone] Allergy Mild RASH Unverified 09/12/20 11:16 oxybenzone [From Coppertone] Allergy Mild RASH Unverified 09/12/20 11:16 diovan Allergy Unknown rash Uncoded 09/12/20 11:16 suntan lotion Allergy Unknown rash Uncoded 09/12/20 11:16 Review of Systems Review of Systems: Constitutional : No Weight loss, No Fever, No Chills, No Night Sweats, No Fatigue, No Malaise ENT/Mouth : No Hearing loss, No Ear Pain, No Nasal Congestion, No Sinus Pain, No Hoarseness, No sore throat, No Rhinorrhea, No Swallowing Difficulty Eyes: No Eye Pain, No Swelling, No Redness, No Foreign Body, No Discharge, No Vision Changes Cardiovascular : No Chest Pain, No SOB, No Dyspnea on Exertion, No Orthopnea, No Edema, No Palpitations Respiratory : No Cough, No Sputum, No Wheezing, No Smoke Exposure, No Dyspnea Gastrointestinal : Complaining of Nausea, No Vomiting, No Diarrhea, No Constipation, No abdominal Pain, No Hematochezia, No Melena Genitourinary : No Dysuria, No Urinary Frequency, No Hematuria, No Urinary Incontinence, No Urgency, No Flank Pain, No Urinary Flow Changes, No Hesitancy Musculoskeletal : Complaining of left leg pain, chronic for 3 months now, constant Skin : No Skin Lesions, No rash Neuro : No Weakness, No Numbness, No Paresthesias, No Loss of Consciousness, No Dizziness, No Headache Psych : No Anxiety/Panic, No Depression, No SI/HI/AH/VH, No Social Issues, Heme/Lymph: No Bruising, No Bleeding,No Lymphadenopathy Endocrine : No Polyuria, No Polydipsia, No Temperature Intolerance [facility] Past Medical History Medical History Depression Diabetes type 2, uncontrolled Diabetic polyneuropathy associated with type 2 diabetes mellitus Dyslipidemia Fibromyalgia 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 Oriented X3. No acute distress. Eyes: Pupils equal, round and reactive to light. ENT: Pharynx normal. Neck: Normal inspection. Neck supple. No lymph nodes noted. No crepitus CVS: Normal heart rate and rhythm. Pulses normal. Normal S1 and S2 Respiratory: No respiratory distress. Breath sounds normal. No Wheezing. No rales Abdomen: Soft and nontender. No rigidity. No distention. Skin: Skin warm and dry. Normal skin color. Normal skin turgor. Extremities: No lower extremity edema. Pain to palpation over the inner left thigh, no palpable cords, no calf tenderness, no hip pain with flexion and extension, no erythema, no change in temperature when compared bilaterally, +3 pedal palpable pulses, bilateral lower extremities/feet/calves are warm to touch Neuro: Oriented X 3. No motor deficit. No sensory deficit. Moving all extermities. No slurred speech. Course Course Course Narrative: Discussed the labs and ultrasound with the patient, no acute DVT. I instructed the patient that if her symptoms persist in the next 5-7 days, she may need another ultrasound. Medical Decision Making Lab Data Result diagrams: 09/29/20 17:34 09/29/20 17:34 Labs: Lab Results 09/29/20 09/29/20 Range/Units 17:34 17:34 WBC 10.7 (4.8-10.8) X10*3/uL RBC 4.43 (4.20-5.50) X10*6/uL Hgb 13.8 (12.0-16.0) g/dl Hct 41.4 (37-47) % MCV 93.5 (80-98) fL MCH 31.2 (27.0-33.0) pg MCHC 33.3 (31.0-35.0) g/dl RDW 12.4 (11.0-16.0) % Plt Count 243 (160-400) X10*3/uL MPV 11.5 (9.4-12.3) fL Immature Gran % (Auto) 0.4 (0.0-0.4) % Neut % (Auto) 66.9 (45-73) % Lymph % (Auto) 26.5 (20-40) % [place] % (Auto) 5.2 (2-11) % Eos % (Auto) 0.8 (0-4) % Baso % (Auto) 0.2 (0-2) % Lymph # (Auto) 2.8 (1.2-4.9) X10*3/uL [place] # (Auto) 0.6 (0.1-1.2) X10*3/uL Eos # (Auto) 0.1 (0.0-0.4) X10*3/uL Baso # (Auto) 0.0 (0.0-0.2) X10*3/uL Abs Immat Gran (auto) 0.04 H (0.00-0.03) X10*3/uL Absolute Neuts (auto) 7.1 (2.0-8.3) X10*3/uL Absolute Nucleated RBC 0.000 (0.0-0.012) X10*3/uL Nucleated RBC % (auto) 0.0 (0.0-0.2) /100WBC Sodium 137 (135-145) mmol/L Potassium 4.1 (3.3-5.1) mmol/L Chloride 101 (96-108) mmol/L Carbon Dioxide 23 (22-29) mmol/L Anion Gap 17 (12-20) BUN 25 H (9-16) mg/dL Creatinine 0.91 (0.5-1.4) mg/dL Estim Creat Clear Calc 56.8 Estimated GFR > 60 Random Glucose 263 H (60-115) mg/dL Calcium 9.1 (8.4-10.2) mg/dL Total Bilirubin 0.5 (0.0-1.0) mg/dL Direct Bilirubin 0.2 (0.0-0.5) mg/dL AST 14 (5-31) U/L ALT 19 (0-31) U/L Alkaline Phosphatase 80 (39-117) U/L Total Protein 7.4 (6.5-8.0) g/dL Albumin 4.0 (3.5-5.0) g/dL Imaging Data Venous US: Radiologist's impression: There is normal venous compression and respiratory variation and augmented flow. The visualized common femoral vein, superficial femoral vein, profunda femoral vein, popliteal vein, and the trifurcation region shows no evidence of deep venous thrombosis. There is no significant popliteal fossa cyst. If the patient's symptoms persist, followup ultrasound in 5 days 7 days might be of value to exclude proximal propagation from a non-visualized calf vein. US/US venous duplex LE LT IMPRESSION: No DVT demonstrated in the left lower extremity. Discharge Plan Discharge Clinical Impression: Chronic pain of left lower extremity Patient Disposition: Home, Self-Care Instructions: Leg Pain (ED) Additional Instructions: Please follow-up with your primary care physician tomorrow. It is possible you may need a repeat ultrasound in 5-7 days if the symptoms persist. If you have any worsening or new symptoms, please return to the emergency room or call 911 Prescriptions: New tramadol 50 mg tablet 50 mg PO BID PRN (Reason: pain) Qty: 5 RF: 0 No Action (DME) FreeStyle Lite Strips Strip See Rx Instructions .ROUTE .MEDSUPPLY Qty: 150 RF: 5 simvastatin 40 mg tablet 40 mg PO BEDTIME 30 Days Qty: 30 RF: 5 cholecalciferol (vitamin D3) 50 mcg (2,000 unit) capsule 50 mcg PO DAILY 30 Days Qty: 30 RF: 6 (DME) pen needle, diabetic 32 gauge x 5/32 needle See Rx Instructions ea subcut .MEDSUPPLY Qty: 50 RF: 0 topiramate 50 mg tablet 50 mg PO BID RF: 0 Artificial Tears([id number]-sgfg-nhyx) 1-0.2-0.2 % drops 1 drp ophthalmic (eye) DAILY RF: 0 citalopram 10 mg tablet 10 mg PO DAILY RF: 0 (DME) lancets 33 gauge misc See Rx Instructions ea .ROUTE .MEDSUPPLY Qty: 100 RF: 0 clonazepam 0.5 mg tablet 0.5 mg PO DAILY PRNRF: 0 valsartan 160 mg tablet 160 mg PO DAILY RF: 0 polyvinyl alcohol 1.4 % drops 1 drp ophthalmic (eye) TID RF: 0 Artificial Tears (jag/min) 83-15 % ointment 1 applic ophthalmic (eye) DAILY PRNRF: 0 aspirin 81 mg tablet,delayed release (DR/EC) 81 mg PO DAILY RF: 0 albuterol sulfate 90 mcg/actuation HFA aerosol inhaler 2 inh inhalation PRNRF: 0 metformin 850 mg tablet 850 mg PO BID 30 Days Qty: 60 RF: 3 insulin glargine 100 unit/mL (3 mL) insulin pen 30 unit subcut QPM 30 Days Qty: 15 RF: 3 meloxicam [Mobic] 15 mg tablet 15 mg PO DAILY 30 Days Qty: 30 RF: 0
[2020-09-29 17:41] LABS: Basophils Percent Auto 0.2 % (0-2); Eosinophils Absolute Auto 0.1 X10*3/uL (0.0-0.4); Eosinophils Percent Auto 0.8 % (0-4); Hematocrit 41.4 % (37-47); Hemoglobin 13.8 g/dl (12.0-16.0); Imm Gran Abs Auto 0.04 X10*3/uL (0.00-0.03); Imm Gran Pct Auto 0.4 % (0.0-0.4); Lymphocytes Absolute Auto 2.8 X10*3/uL (1.2-4.9); Lymphocytes Percent Auto 26.5 % (20-40); MANUAL DIFF FLAG NO; Mean Corpuscular HGB Conc 33.3 g/dl (31.0-35.0); Mean Corpuscular Hemoglobin 31.2 pg (27.0-33.0); Mean Corpuscular Volume 93.5 fL (80-98); Mean Platelet Volume 11.5 fL (9.4-12.3); Monocytes Absolute Auto 0.6 X10*3/uL (0.1-1.2); Monocytes Percent Auto 5.2 % (2-11); Neutrophils Absolute Auto 7.1 X10*3/uL (2.0-8.3); Neutrophils Percent Auto 66.9 % (45-73); Platelet Count 243 X10*3/uL (160-400); Red Blood Count 4.43 X10*6/uL (4.20-5.50); Red Cell Distribution Width 12.4 % (11.0-16.0); White Blood Count 10.7 X10*3/uL (4.8-10.8)
[2020-09-29 18:03] LABS: Alanine Aminotransferase 19 U/L (0-31); Alkaline Phosphatase 80 U/L (39-117); Anion Gap 17 (12-20); Aspartate Amino Transferase 14 U/L (5-31); Bilirubin Direct 0.2 mg/dL (0.0-0.5); Bilirubin Total 0.5 mg/dL (0.0-1.0); Blood Urea Nitrogen 25 mg/dL (9-16); Calcium 9.1 mg/dL (8.4-10.2); Carbon Dioxide 23 mmol/L (22-29); Chloride 101 mmol/L (96-108); Creatinine Clr Calc Pharmacy 56.8; Estimated Glomerular Filt Rate > 60; Glucose Random 263 mg/dL (60-115); Potassium 4.1 mmol/L (3.3-5.1); Sodium 137 mmol/L (135-145); Total Protein 7.4 g/dL (6.5-8.0)
[2020-09-29 18:05] VITALS: BP 153/83; PULSE 78; RESP 20; TEMP 36.6; O2SAT 99
[2020-09-29] MEDS: traMADoL HCL 50 MG TABLET PO (20:03)
[2020-09-29 20:05] VITALS: BP 154/78; PULSE 73; RESP 16; O2SAT 97
== END 2020-09-29 20:10 | disposition home or self-care (01) ==
PROVIDERS: Emergency Provider Emergency Medicine; PCP Internal Medicine
DX: M79.652 Pain in left thigh (principal); R60.0 Localized edema; G89.29 Other chronic pain; Z79.899 Other long term (current) drug therapy; Z79.82 Long term (current) use of aspirin
CPT/HCPCS: 36415; 80048; 80076; 85025; 93971; 99284

== ENCOUNTER 2020-10-01 23:42 | Emergency (ER) | payer MEDICARE, SELFPAY ==
[2020-10-02 00:06] VITALS: BP 164/84; PULSE 80; O2SAT 100
[2020-10-02 01:07] VITALS: BP 153/74; PULSE 86; RESP 18; TEMP 36.6; O2SAT 98; BMI 26.6
--- NOTE | 2020-10-02 03:26 | ED_ITS ---
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 Related Data Home Medications Medication Instructions Recorded Confirmed aspirin 81 mg tablet,delayed 81 mg PO DAILY 05/23/20 09/17/20 release citalopram 10 mg tablet 10 mg PO DAILY 05/23/20 09/17/20 clonazepam 0.5 mg tablet 0.5 mg PO DAILY PRN 05/23/20 09/17/20 lancets 33 gauge #100 ea 05/23/20 09/17/20 peg [id number] 1 1 drp OPHTHALMIC (EYE) DAILY ml 05/23/20 09/17/20 %-0.2 %-0.2 % eye drops pen needle, diabetic 32 gauge x #50 ea 05/23/20 09/17/20 5/32 polyvinyl alcohol 1.4 % eye drops 1 drp OPHTHALMIC (EYE) TID 05/23/20 09/17/20 topiramate 50 mg tablet 50 mg PO BID 05/23/20 09/17/20 valsartan 160 mg tablet 160 mg PO DAILY 05/23/20 09/17/20 white petrolatum-mineral oil 83 1 applic OPHTHALMIC (EYE) DAILY 05/23/20 09/17/20 %-15 % eye ointment PRN g albuterol sulfate 90 mcg/actuation 2 inh INHALATION PRN g 09/17/20 09/17/20 aerosol inhaler Previous Rx's Medication Instructions Recorded blood sugar diagnostic #150 ea 05/18/20 simvastatin 40 mg tablet 40 mg PO BEDTIME 30 Days #30 tab 05/18/20 meloxicam 15 mg tablet 15 mg PO DAILY 30 Days #30 tab 09/12/20 insulin glargine 100 unit/mL (3 30 unit SUBCUT QPM 30 Days #15 ml 09/17/20 mL) subcutaneous pen metformin 850 mg tablet 850 mg PO BID 30 Days #60 tab 09/17/20 cholecalciferol (vitamin D3) 50 50 mcg PO DAILY 30 Days #30 cap 09/25/20 mcg (2,000 unit) capsule tramadol 50 mg PO BID PRN #5 tab 09/29/20 Allergies Allergy/AdvReac Type Severity Reaction Status Date / Time homosalate [From Coppertone] Allergy Mild RASH Unverified 09/12/20 11:16 octinoxate [From Coppertone] Allergy Mild RASH Unverified 09/12/20 11:16 oxybenzone [From Coppertone] Allergy Mild RASH Unverified 09/12/20 11:16 diovan Allergy Unknown rash Uncoded 09/12/20 11:16 suntan lotion Allergy Unknown rash Uncoded 09/12/20 11:16 Review of Systems Review of Systems: Pertinent positives and negatives as stated in HPI 10 point review of symptoms is otherwise negative. [facility] Past Medical History Source: nursing notes reviewed Medical History Depression Diabetes type 2, uncontrolled Diabetic polyneuropathy associated with type 2 diabetes mellitus Dyslipidemia Fibromyalgia Hypertension detention (current) use of insulin Lung cancer Obesity (BMI 30-39.9) Vitamin D deficiency Surgical History No pertinent past surgical history Family History Family History Father Osteoporosis Mother Stroke Cancer Social History Social History Alcohol intake: never Smoking Status: Smoker, status unknown Advance Directives: No Physical Exam Vital Signs: Vital Signs: Last Vital Signs Temp 97.9 F 10/02/20 01:07 Pulse 86 10/02/20 01:07 Resp 18 10/02/20 01:07 BP 153/74 H 10/02/20 01:07 Pulse Ox 98 10/02/20 01:07 Body Mass Index 26.6 VITAL SIGNS: Reviewed. GENERAL: Well developed, well nourished, in no acute distress. HEAD: Normocephalic/atraumatic, LUNGS: Normal breath sounds. No adventitious sounds or accessory muscle use. SpO2<98> CARDIOVASCULAR: Regular rate and rhythm without noted murmurs ABDOMEN: Soft, mild tenderness on palpation over lower abdomen, non-distended with bowel sounds. BACK: No midline vertebral tenderness LEFT LOWER EXTREMITY: There are no deformities, neurovascular is intact, full range of motion at hip, knee, ankle NEUROLOGIC: Alert and oriented x 4. PSYCH: Tearful, anxious Course Course Course Narrative: 69-year-old female with history and clinical presentation suggestive of possible anxiety as on review of documentation patient was seen here on 09/29 for similar complaints complete laboratory workup which was negative for acute findings. The only outstanding evaluation that was not completed was a urinalysis. Of note, a CT of the abdomen and pelvis in July of this year that was unremarkable. I would order a urinalysis as on review patient is had calcium oxalate crystals described in her urine previously. Informed by nursing that patient eloped. Discharge Plan Discharge Clinical Impression: Left leg pain, Abdominal discomfort Patient Disposition: Elopement Prescriptions: No Action (DME) FreeStyle Lite Strips Strip See Rx Instructions .ROUTE .MEDSUPPLY Qty: 150 RF: 5 simvastatin 40 mg tablet 40 mg PO BEDTIME 30 Days Qty: 30 RF: 5 cholecalciferol (vitamin D3) 50 mcg (2,000 unit) capsule 50 mcg PO DAILY 30 Days Qty: 30 RF: 6 tramadol 50 mg tablet 50 mg PO BID PRN (Reason: pain) Qty: 5 RF: 0 (DME) pen needle, diabetic 32 gauge x 5/32 needle See Rx Instructions ea subcut .MEDSUPPLY Qty: 50 RF: 0 topiramate 50 mg tablet 50 mg PO BID RF: 0 Artificial Tears([id number]) 1-0.2-0.2 % drops 1 drp ophthalmic (eye) DAILY RF: 0 citalopram 10 mg tablet 10 mg PO DAILY RF: 0 (DME) lancets 33 gauge misc See Rx Instructions ea .ROUTE .MEDSUPPLY Qty: 100 RF: 0 clonazepam 0.5 mg tablet 0.5 mg PO DAILY PRNRF: 0 valsartan 160 mg tablet 160 mg PO DAILY RF: 0 polyvinyl alcohol 1.4 % drops 1 drp ophthalmic (eye) TID RF: 0 Artificial Tears (jag/min) 83-15 % ointment 1 applic ophthalmic (eye) DAILY PRNRF: 0 aspirin 81 mg tablet,delayed release (DR/EC) 81 mg PO DAILY RF: 0 albuterol sulfate 90 mcg/actuation HFA aerosol inhaler 2 inh inhalation PRNRF: 0 metformin 850 mg tablet 850 mg PO BID 30 Days Qty: 60 RF: 3 insulin glargine 100 unit/mL (3 mL) insulin pen 30 unit subcut QPM 30 Days Qty: 15 RF: 3 meloxicam [Mobic] 15 mg tablet 15 mg PO DAILY 30 Days Qty: 30 RF: 0 Discharge Date/Time: 10/02/20 04:00
--- NOTE | 2020-10-02 04:24 | PC.NURSE ---
pt not in her chair at [id number]
== END 2020-10-02 04:00 | disposition left against medical advice (07) ==
PROVIDERS: Emergency Provider Student in an Organized Health Care Education/Training Program; PCP Internal Medicine
DX: M79.605 Pain in left leg (principal); R10.9 Unspecified abdominal pain; F41.1 Generalized anxiety disorder; F43.0 Acute stress reaction; Z79.899 Other long term (current) drug therapy; Z79.82 Long term (current) use of aspirin
CPT/HCPCS: 99283; 99284

== ENCOUNTER → 2020-12-24 10:14 | Outpatient (BNVA) | payer MEDICARE, SELFPAY | PROVIDERS: PCP Internal Medicine; Visit Provider Internal Medicine Endocrinology, Diabetes & Metabolism | DX: E11.65 Type 2 diabetes mellitus with hyperglycemia (principal); E11.42 Type 2 diabetes mellitus with diabetic polyneuropathy; E78.5 Hyperlipidemia, unspecified; E66.9 Obesity, unspecified; E55.9 Vitamin D deficiency, unspecified; I10 Essential (primary) hypertension; Z79.4 Long term (current) use of insulin | CPT/HCPCS: 82947; 99212 ==

== ENCOUNTER 2021-05-16 00:18 | Emergency (ER) | payer MEDICARE, SELFPAY ==
[2021-05-16] VITALS (9 sets, daily range): BP systolic 114–173; BP diastolic 71–95; PULSE 80–100; RESP 15–16; TEMP 35.5–36.9; O2SAT 98–100; BMI 32.3
--- NOTE | 2021-05-16 | ECG_ITS ---
Test Reason : back pain Blood Pressure : / mmHG Vent. Rate : 086 BPM Atrial Rate : 086 BPM P-R Int : 124 ms QRS Dur : 080 ms QT Int : 352 ms P-R-T Axes : 071 023 014 degrees QTc Int : 421 ms Normal sinus rhythm RSR' or QR pattern in V1 suggests right ventricular conduction delay Otherwise normal ECG When compared with ECG of 06-JUN-2020 15:18, No significant change was found Referred By: Kenisha Rodriguez Electronically Signed By:IRENE PARKS MD
--- NOTE | ~2021-05-16 | US_ITS ---
EXAMINATION: US VENOUS ULTRASOUND WITH DOPPLER LOWER EXTREMITY, LEFT CLINICAL INFORMATION: Edema and pain COMPARISON: None TECHNIQUE: Ultrasound of the deep veins is performed from the hip to the calf with compression sonography and color and pulse Doppler assessment. Spectral analysis with color-flow imaging is performed. FINDINGS: There is normal venous compression and respiratory variation and augmented flow. The visualized common femoral vein, superficial femoral vein, profunda femoral vein, popliteal vein, and the trifurcation region shows no evidence of deep venous thrombosis. There is no significant popliteal fossa cyst. If the patient's symptoms persist, followup ultrasound in 5 days 7 days might be of value to exclude proximal propagation from a non-visualized calf vein. There is a superficial varicosity noted in the superficial soft tissues of the medial left proximal thigh in the patient's area of pain, though this does have color flow. US/US venous duplex LE LT IMPRESSION: No DVT demonstrated in the left lower extremity. Patent superficial varicosities in the left lower extremity. Consider outpatient evaluation for venous reflux.
[2021-05-16 03:05] LABS: Glucose, Whole Blood 217 mg/dL (60-115)
--- NOTE | 2021-05-16 03:41 | ED_ITS ---
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 Related Data Home Medications Medication Instructions Recorded Confirmed aspirin 81 mg tablet,delayed 81 mg PO DAILY 05/23/20 12/24/20 release clonazepam 0.5 mg tablet 0.5 mg PO DAILY PRN 05/23/20 12/24/20 peg [id number] 1 1 drp OPHTHALMIC (EYE) DAILY ml 05/23/20 12/24/20 %-0.2 %-0.2 % eye drops pen needle, diabetic 32 gauge x #50 ea 05/23/20 12/24/20 5/32 polyvinyl alcohol 1.4 % eye drops 1 drp OPHTHALMIC (EYE) TID 05/23/20 12/24/20 topiramate 50 mg tablet 50 mg PO BID 05/23/20 12/24/20 valsartan 160 mg tablet 160 mg PO DAILY 05/23/20 12/24/20 white petrolatum-mineral oil 83 1 applic OPHTHALMIC (EYE) DAILY 05/23/20 %-15 % eye ointment PRN g albuterol sulfate 90 mcg/actuation 2 inh INHALATION PRN g 09/17/20 12/24/20 aerosol inhaler lancets 33 gauge (TRUEplus Lancets) #100 ea 11/20/20 12/24/20 citalopram 10 mg tablet 20 mg PO DAILY tab 12/24/20 12/24/20 simethicone 125 mg chewable tablet 0 mg PO 12/24/20 12/24/20 Previous Rx's Medication Instructions Recorded meloxicam 15 mg tablet (Mobic) 15 mg PO DAILY 30 Days #30 tab 09/12/20 tramadol 50 mg tablet 50 mg PO BID PRN #5 tab 09/29/20 cholecalciferol (vitamin D3) 50 50 mcg PO DAILY 30 Days #30 cap 10/03/20 mcg (2,000 unit) capsule lancets 33 gauge (TRUEplus Lancets) #120 ea 11/20/20 simvastatin 40 mg tablet 40 mg PO BEDTIME 30 Days #30 tab 11/20/20 Lantus Solostar U-100 Insulin 100 30 unit (0.3 mL) SUBCUT QPM 30 12/24/20 unit/mL (3 mL) subcutaneous pen Days #15 ml NS (insulin glargine) insulin regular human 4 unit 4 unit INHALATION TID 30 Days #90 12/24/20 cartridge with inhaler (Afrezza) ea pen needle, diabetic 32 gauge x #100 ea 12/24/20 (BD Deedee 2nd Gen Pen Needle) blood sugar diagnostic (FreeStyle #150 ea 01/29/21 Lite Strips) metformin 850 mg tablet 850 mg PO BID 90 Days #180 tab 04/02/21 cephalexin 500 mg capsule 500 mg PO Q12H 5 Days #10 cap 05/16/21 Allergies Allergy/AdvReac Type Severity Reaction Status Date / Time homosalate [From Coppertone] Allergy Mild RASH Verified 05/16/21 01:20 octinoxate [From Coppertone] Allergy Mild RASH Verified 05/16/21 01:20 oxybenzone [From Coppertone] Allergy Mild RASH Verified 05/16/21 01:20 diovan Allergy Unknown rash Uncoded 05/16/21 01:20 suntan lotion Allergy Unknown rash Uncoded 05/16/21 01:20 Review of Systems Review of Systems: Pertinent positives and negatives as stated in HPI 10 point review of systems is otherwise negative. [facility] Past Medical History Source: nursing notes reviewed Medical History Depression Diabetes type 2, uncontrolled Diabetic polyneuropathy associated with type 2 diabetes mellitus Dyslipidemia Fibromyalgia Hypertension intermediate (current) use of insulin Lung cancer Obesity (BMI 30-39.9) Vitamin D deficiency Surgical History No pertinent past surgical history Family History Family History Father Osteoporosis Mother Stroke Cancer Social History Social History Alcohol intake: never Advance Directives: No Advance Directives Information Provided: Yes Physical Exam Vital Signs: Vital Signs: Last Vital Signs Temp 95.9 F L 05/16/21 06:45 Pulse 83 05/16/21 06:45 Resp 16 05/16/21 06:45 BP 159/78 H 05/16/21 06:45 Pulse Ox 99 05/16/21 06:45 Body Mass Index 32.3 VITAL SIGNS: Reviewed. GENERAL: Well developed, well nourished, in no acute distress. HEAD: Normocephalic/atraumatic EYES: PERRLA, EOMI OROPHARYNX: no oral lesions noted, posterior pharynx clear NECK: Supple, no adenopathy LUNGS: Normal breath sounds. SpO2<99> CARDIOVASCULAR: Regular rate and rhythm without noted murmurs, no JVD or lower extremity edema. ABDOMEN: Soft, non-tender, non-distended with bowel sounds. LEFT LOWER EXTREMITY: No deformities noted, no erythema/induration appreciated, no rashes or vesicular lesions and patient noted to have range of motion. SKIN: Inspection of the skin reveals no rashes NEUROLOGIC: Alert and oriented x 4. Strength and sensation to light touch were grossly intact x 4. Course Course Course Narrative: 70-year-old female with history and clinical presentation consistent with diabetic neuropathy and on review of allinvestigations there are no acute findings other than pain noted UTI. Patient received initial antibiotics here in the emergency rooms and also underwent venous duplex of the left lower extremity to ensure no underlying DVT. Signed out to Dr Negrete: f/u Venous Duplex in [facility] Medical Decision Making Lab Data Result diagrams: 05/16/21 06:04 05/16/21 06:04 Labs: Lab Results 05/16/21 05/16/21 05/16/21 Range/Units 03:00 05:58 06:04 WBC 9.6 (4.8-10.8) X10*3/uL RBC 4.46 (4.20-5.50) X10*6/uL Hgb 14.0 (12.0-16.0) g/dl Hct 42.7 (37.0-47.0) % MCV 95.7 (80.0-98.0) fL MCH 31.4 (27.0-33.0) pg MCHC 32.8 (31.0-35.0) g/dl RDW 12.4 (11.0-16.0) % Plt Count 245 (160-400) X10*3/uL MPV 11.5 (9.4-12.3) fL Immature Gran % (Auto) 0.2 (0.0-0.4) % Neut % (Auto) 51.2 (45-73) % Lymph % (Auto) 43.3 H (20-40) % [place] % (Auto) 4.6 (2-11) % Eos % (Auto) 0.5 (0-4) % Baso % (Auto) 0.2 (0-2) % Lymph # (Auto) 4.2 (1.2-4.9) X10*3/uL [place] # (Auto) 0.4 (0.1-1.2) X10*3/uL Eos # (Auto) 0.1 (0.0-0.4) X10*3/uL Baso # (Auto) 0.0 (0.0-0.2) X10*3/uL Abs Immat Gran (auto) 0.02 (0.00-0.03) X10*3/uL Absolute Neuts (auto) 4.9 (2.0-8.3) x10*3/uL Absolute Nucleated RBC 0.000 (0.0-0.012) X10*3/uL Nucleated RBC % (auto) 0.0 (0.0-0.2) /100WBC Sodium (135-145) mmol/L Potassium (3.3-5.1) mmol/L Chloride (96-108) mmol/L Carbon Dioxide (22-29) mmol/L Anion Gap (12-20) BUN (9-16) mg/dL Creatinine (0.5-1.4) mg/dL Estim Creat Clear Calc Estimated GFR POC Glucose 217 H (60-115) mg/dL Random Glucose (60-115) mg/dL Calcium (8.4-10.2) mg/dL Total Bilirubin (0.0-1.0) mg/dL AST (5-31) U/L ALT (0-31) U/L Alkaline Phosphatase (39-117) U/L Total Protein (6.5-8.0) g/dL Albumin (3.5-5.0) g/dL Urine Color YELLOW Urine Appearance HAZY Urine pH 7.0 (5.0-8.0) Ur Specific [place] 1.010 (1.005-1.025) Urine Protein TRACE (NEG-TRACE) MG/DL Urine Glucose (UA) NEG (NEG) MG/DL Urine Ketones NEG (NEG) MG/DL Urine Blood NEG (NEG) Urine Nitrite NEG (NEG) Ur Leukocyte Esterase 3+ H (NEG) Urine RBC 0 (0) /HPF Urine WBC 15-29 H (0-4) /HPF Ur Squamous Epith Cells 3+ /LPF Urine Bacteria 2+ /LPF 05/16/21 Range/Units 06:04 WBC (4.8-10.8) X10*3/uL RBC (4.20-5.50) X10*6/uL Hgb (12.0-16.0) g/dl Hct (37.0-47.0) % MCV (80.0-98.0) fL MCH (27.0-33.0) pg MCHC (31.0-35.0) g/dl RDW (11.0-16.0) % Plt Count (160-400) X10*3/uL MPV (9.4-12.3) fL Immature Gran % (Auto) (0.0-0.4) % Neut % (Auto) (45-73) % Lymph % (Auto) (20-40) % [place] % (Auto) (2-11) % Eos % (Auto) (0-4) % Baso % (Auto) (0-2) % Lymph # (Auto) (1.2-4.9) X10*3/uL [place] # (Auto) (0.1-1.2) X10*3/uL Eos # (Auto) (0.0-0.4) X10*3/uL Baso # (Auto) (0.0-0.2) X10*3/uL Abs Immat Gran (auto) (0.00-0.03) X10*3/uL Absolute Neuts (auto) (2.0-8.3) x10*3/uL Absolute Nucleated RBC (0.0-0.012) X10*3/uL Nucleated RBC % (auto) (0.0-0.2) /100WBC Sodium 139 (135-145) mmol/L Potassium 4.2 (3.3-5.1) mmol/L Chloride 105 (96-108) mmol/L Carbon Dioxide 23 (22-29) mmol/L Anion Gap 15 (12-20) BUN 11 D (9-16) mg/dL Creatinine 0.84 (0.5-1.4) mg/dL Estim Creat Clear Calc 65.3 Estimated GFR > 60 POC Glucose (60-115) mg/dL Random Glucose 176 H (60-115) mg/dL Calcium 9.7 D (8.4-10.2) mg/dL Total Bilirubin 0.4 (0.0-1.0) mg/dL AST 15 (5-31) U/L ALT 17 (0-31) U/L Alkaline Phosphatase 66 (39-117) U/L Total Protein 8.0 (6.5-8.0) g/dL Albumin 4.3 (3.5-5.0) g/dL Urine Color Urine Appearance Urine pH (5.0-8.0) Ur Specific [place] (1.005-1.025) Urine Protein (NEG-TRACE) MG/DL Urine Glucose (UA) (NEG) MG/DL Urine Ketones (NEG) MG/DL Urine Blood (NEG) Urine Nitrite (NEG) Ur Leukocyte Esterase (NEG) Urine RBC (0) /HPF Urine WBC (0-4) /HPF Ur Squamous Epith Cells /LPF Urine Bacteria /LPF ECG Data Attestation: I personally reviewed and interpreted this ECG as follows: Prior ECG tracings: available for review (06/06/2020 no acute changes on comparison) Interpretation: Normal sinus rhythm, HR-86, no STEMI, OR/QRS/QTC is within normal limits. Discharge Plan Discharge Clinical Impression: Diabetic polyneuropathy associated with type 2 diabetes mellitus, Fibromyalgia, Acute UTI Instructions: Urinary Tract Infection in Women (ED), Diabetic Peripheral Neuropathy (ED) Additional Instructions: 1. Reanude todos los medicamentos caseros seg?n lo prescrito. 2. [place] Tylenol / ibuprofeno de venta rkisti para controlar el dolor hasta que tenga la oportunidad de hacer un seguimiento con johnson proveedor de atenci?n primaria llamando al consultorio esta ma?love. Regrese a la davon de emergencias por un empeoramiento lloyd de los s?ntomas. Prescriptions: New cephalexin 500 mg capsule 500 mg PO Q12H 5 Days Qty: 10 RF: 0 No Action cholecalciferol (vitamin D3) 50 mcg (2,000 unit) capsule 50 mcg PO DAILY 30 Days Qty: 30 RF: 6 (DME) lancets [TRUEplus Lancets] 33 gauge misc See Rx Instructions .ROUTE .MEDSUPPLY Qty: 100 RF: 0 (DME) lancets [TRUEplus Lancets] 33 gauge misc See Rx Instructions .ROUTE .MEDSUPPLY Qty: 120 RF: 5 simvastatin 40 mg tablet 40 mg PO BEDTIME 30 Days Qty: 30 RF: 5 (DME) FreeStyle Lite Strips Strip See Rx Instructions .ROUTE .MEDSUPPLY Qty: 150 RF: 5 metformin 850 mg tablet 850 mg PO BID 90 Days Qty: 180 RF: 0 tramadol 50 mg tablet 50 mg PO BID PRN (Reason: pain) Qty: 5 RF: 0 (DME) pen needle, diabetic 32 gauge x 5/32 needle See Rx Instructions ea subcut .MEDSUPPLY Qty: 50 RF: 0 topiramate 50 mg tablet 50 mg PO BID RF: 0 Artificial Tears([id number]) 1-0.2-0.2 % drops 1 drp ophthalmic (eye) DAILY RF: 0 clonazepam 0.5 mg tablet 0.5 mg PO DAILY PRNRF: 0 valsartan 160 mg tablet 160 mg PO DAILY RF: 0 polyvinyl alcohol 1.4 % drops 1 drp ophthalmic (eye) TID RF: 0 Artificial Tears (jag/min) 83-15 % ointment 1 applic ophthalmic (eye) DAILY PRNRF: 0 aspirin 81 mg tablet,delayed release (DR/EC) 81 mg PO DAILY RF: 0 albuterol sulfate 90 mcg/actuation HFA aerosol inhaler 2 inh inhalation PRNRF: 0 citalopram 10 mg tablet 20 mg PO DAILY RF: 0 simethicone 125 mg tablet,chewable 0 mg PO RF: 0 Afrezza 4 unit cartridge with inhaler 4 unit inhalation TID 30 Days Qty: 90 RF: 3 Lantus Solostar U-100 Insulin 100 unit/mL (3 mL) insulin pen 30 unit subcut QPM 30 Days Qty: 15 RF: 3 (DME) pen needle, diabetic [BD Deedee 2nd Gen Pen Needle] 32 gauge x 5/32 needle See Rx Instructions .MEDSUPPLY Qty: 100 RF: 4 meloxicam [Mobic] 15 mg tablet 15 mg PO DAILY 30 Days Qty: 30 RF: 0 Print Language: Occitan
[2021-05-16 06:09] LABS: Basophils Percent Auto 0.2 % (0-2); Eosinophils Absolute Auto 0.1 X10*3/uL (0.0-0.4); Eosinophils Percent Auto 0.5 % (0-4); Hematocrit 42.7 % (37.0-47.0); Imm Gran Abs Auto 0.02 X10*3/uL (0.00-0.03); Imm Gran Pct Auto 0.2 % (0.0-0.4); Lymphocytes Absolute Auto 4.2 X10*3/uL (1.2-4.9); Lymphocytes Percent Auto 43.3 % (20-40); Mean Corpuscular HGB Conc 32.8 g/dl (31.0-35.0); Mean Corpuscular Hemoglobin 31.4 pg (27.0-33.0); Mean Corpuscular Volume 95.7 fL (80.0-98.0); Mean Platelet Volume 11.5 fL (9.4-12.3); Monocytes Absolute Auto 0.4 X10*3/uL (0.1-1.2); Monocytes Percent Auto 4.6 % (2-11); Neutrophils Absolute Auto 4.9 x10*3/uL (2.0-8.3); Neutrophils Percent Auto 51.2 % (45-73); Platelet Count 245 X10*3/uL (160-400); Red Blood Count 4.46 X10*6/uL (4.20-5.50); Red Cell Distribution Width 12.4 % (11.0-16.0); White Blood Count 9.6 X10*3/uL (4.8-10.8)
[2021-05-16 06:10] LABS: Appearance Urine HAZY; Color Urine YELLOW; Glucose Urine UA NEG (NEG); Leukocyte Esterase Urine 3+ (NEG); Nitrite Urine NEG (NEG); UACC Culture Trigger YES; Urine Blood NEG (NEG); Urine Ketones NEG (NEG); Urine Protein TRACE MG/DL (NEG-TRACE)
[2021-05-16 06:10] LABS: MANUAL DIFF FLAG NO
[2021-05-16 06:17] LABS: Bacteria Urine 2+ /LPF; RBC Urine 0 /HPF (0); Squamous Epithelial Cell Urine 3+ /LPF
[2021-05-16 06:30] LABS: Alanine Aminotransferase 17 U/L (0-31); Albumin Level 4.3 g/dL (3.5-5.0); Alkaline Phosphatase 66 U/L (39-117); Anion Gap 15 (12-20); Aspartate Amino Transferase 15 U/L (5-31); Bilirubin Total 0.4 mg/dL (0.0-1.0); Blood Urea Nitrogen 11 mg/dL (9-16); Calcium 9.7 mg/dL (8.4-10.2); Carbon Dioxide 23 mmol/L (22-29); Chloride 105 mmol/L (96-108); Creatinine Clr Calc Pharmacy 65.3; Estimated Glomerular Filt Rate > 60; Glucose Random 176 mg/dL (60-115); Potassium 4.2 mmol/L (3.3-5.1); Sodium 139 mmol/L (135-145)
--- NOTE | 2021-05-16 08:03 | ED_ITS ---
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 She denies falls, fevers, chills, bowel/bladder dysfunction. Related Data Home Medications Medication Instructions Recorded Confirmed aspirin 81 mg tablet,delayed 81 mg PO DAILY 05/23/20 05/16/21 release clonazepam 0.5 mg tablet 0.5 mg PO DAILY PRN 05/23/20 05/16/21 pen needle, diabetic 32 gauge x #50 ea 05/23/20 12/24/20 topiramate 50 mg tablet 50 mg PO BID 05/23/20 05/16/21 valsartan 160 mg tablet 160 mg PO DAILY 05/23/20 05/16/21 white petrolatum-mineral oil 83 1 applic OPHTHALMIC (EYE) DAILY 05/23/20 05/16/21 %-15 % eye ointment PRN g albuterol sulfate 90 mcg/actuation 2 inh INHALATION Q4H PRN g 09/17/20 05/16/21 aerosol inhaler lancets 33 gauge (TRUEplus Lancets) #100 ea 11/20/20 12/24/20 simethicone 125 mg chewable tablet 125 mg PO TID 12/24/20 05/16/21 citalopram 20 mg tablet 1 tab PO DAILY 05/16/21 05/16/21 zolpidem 5 mg tablet 1 tab PO BEDTIME PRN 05/16/21 05/16/21 Previous Rx's Medication Instructions Recorded cholecalciferol (vitamin D3) 50 50 mcg PO DAILY 30 Days #30 cap 10/03/20 mcg (2,000 unit) capsule lancets 33 gauge (TRUEplus Lancets) #120 ea 11/20/20 simvastatin 40 mg tablet 40 mg PO BEDTIME 30 Days #30 tab 11/20/20 Lantus Solostar U-100 Insulin 100 30 unit (0.3 mL) SUBCUT QPM 30 12/24/20 unit/mL (3 mL) subcutaneous pen Days #15 ml NS (insulin glargine) insulin regular human 4 unit 4 unit INHALATION TID 30 Days #90 12/24/20 cartridge with inhaler (Afrezza) ea pen needle, diabetic 32 gauge x #100 ea 12/24/20 5/32 (BD Deedee 2nd Gen Pen Needle) blood sugar diagnostic (FreeStyle #150 ea 01/29/21 Lite Strips) metformin 850 mg tablet 850 mg PO BID 90 Days #180 tab 04/02/21 cephalexin 500 mg capsule 500 mg PO Q12H 5 Days #10 cap 05/16/21 Allergies Allergy/AdvReac Type Severity Reaction Status Date / Time homosalate [From Coppertone] Allergy Mild RASH Verified 05/16/21 01:20 octinoxate [From Coppertone] Allergy Mild RASH Verified 05/16/21 01:20 oxybenzone [From Coppertone] Allergy Mild RASH Verified 05/16/21 01:20 diovan Allergy Unknown rash Uncoded 05/16/21 01:20 suntan lotion Allergy Unknown rash Uncoded 05/16/21 01:20 PMFSH Past Medical History Medical History Depression Diabetes type 2, uncontrolled Diabetic polyneuropathy associated with type 2 diabetes mellitus Dyslipidemia Fibromyalgia Hypertension MCC (current) use of insulin Lung cancer Obesity (BMI 30-39.9) Vitamin D deficiency Surgical History No pertinent past surgical history Family History Family History Father Osteoporosis Mother Stroke Cancer Social History Social History Alcohol intake: never Advance Directives: No Advance Directives Information Provided: Yes Physical Exam Vital Signs: Vital Signs: Last Vital Signs Temp 98.6 F 05/17/21 09:24 Pulse 99 05/17/21 09:24 Resp 16 05/17/21 09:24 BP 173/91 H 05/17/21 09:24 Pulse Ox 98 05/17/21 09:24 Body Mass Index 32.3 Medical Decision Making Lab Data Result diagrams: 05/16/21 06:04 05/16/21 06:04 Labs: Lab Results 05/16/21 05/16/21 05/16/21 Range/Units 03:00 05:58 06:04 WBC 9.6 (4.8-10.8) X10*3/uL RBC 4.46 (4.20-5.50) X10*6/uL Hgb 14.0 (12.0-16.0) g/dl Hct 42.7 (37.0-47.0) % MCV 95.7 (80.0-98.0) fL MCH 31.4 (27.0-33.0) pg MCHC 32.8 (31.0-35.0) g/dl RDW 12.4 (11.0-16.0) % Plt Count 245 (160-400) X10*3/uL MPV 11.5 (9.4-12.3) fL Immature Gran % (Auto) 0.2 (0.0-0.4) % Neut % (Auto) 51.2 (45-73) % Lymph % (Auto) 43.3 H (20-40) % [place] % (Auto) 4.6 (2-11) % Eos % (Auto) 0.5 (0-4) % Baso % (Auto) 0.2 (0-2) % Lymph # (Auto) 4.2 (1.2-4.9) X10*3/uL [place] # (Auto) 0.4 (0.1-1.2) X10*3/uL Eos # (Auto) 0.1 (0.0-0.4) X10*3/uL Baso # (Auto) 0.0 (0.0-0.2) X10*3/uL Abs Immat Gran (auto) 0.02 (0.00-0.03) X10*3/uL Absolute Neuts (auto) 4.9 (2.0-8.3) x10*3/uL Absolute Nucleated RBC 0.000 (0.0-0.012) X10*3/uL Nucleated RBC % (auto) 0.0 (0.0-0.2) /100WBC Sodium (135-145) mmol/L Potassium (3.3-5.1) mmol/L Chloride (96-108) mmol/L Carbon Dioxide (22-29) mmol/L Anion Gap (12-20) BUN (9-16) mg/dL Creatinine (0.5-1.4) mg/dL Estim Creat Clear Calc Estimated GFR POC Glucose 217 H (60-115) mg/dL Random Glucose (60-115) mg/dL Calcium (8.4-10.2) mg/dL Total Bilirubin (0.0-1.0) mg/dL AST (5-31) U/L ALT (0-31) U/L Alkaline Phosphatase (39-117) U/L Total Protein (6.5-8.0) g/dL Albumin (3.5-5.0) g/dL Urine Color YELLOW Urine Appearance HAZY Urine pH 7.0 (5.0-8.0) Ur Specific [place] 1.010 (1.005-1.025) Urine Protein TRACE (NEG-TRACE) MG/DL Urine Glucose (UA) NEG (NEG) MG/DL Urine Ketones NEG (NEG) MG/DL Urine Blood NEG (NEG) Urine Nitrite NEG (NEG) Ur Leukocyte Esterase 3+ H (NEG) Urine RBC 0 (0) /HPF Urine WBC 15-29 H (0-4) /HPF Ur Squamous Epith Cells 3+ /LPF Urine Bacteria 2+ /LPF COVID-19 (DAVE) (Negative) COVID-19 Clin Com 05/16/21 05/16/21 05/16/21 Range/Units 06:04 10:12 13:21 WBC (4.8-10.8) X10*3/uL RBC (4.20-5.50) X10*6/uL Hgb (12.0-16.0) g/dl Hct (37.0-47.0) % MCV (80.0-98.0) fL MCH (27.0-33.0) pg MCHC (31.0-35.0) g/dl RDW (11.0-16.0) % Plt Count (160-400) X10*3/uL MPV (9.4-12.3) fL Immature Gran % (Auto) (0.0-0.4) % Neut % (Auto) (45-73) % Lymph % (Auto) (20-40) % [place] % (Auto) (2-11) % Eos % (Auto) (0-4) % Baso % (Auto) (0-2) % Lymph # (Auto) (1.2-4.9) X10*3/uL [place] # (Auto) (0.1-1.2) X10*3/uL Eos # (Auto) (0.0-0.4) X10*3/uL Baso # (Auto) (0.0-0.2) X10*3/uL Abs Immat Gran (auto) (0.00-0.03) X10*3/uL Absolute Neuts (auto) (2.0-8.3) x10*3/uL Absolute Nucleated RBC (0.0-0.012) X10*3/uL Nucleated RBC % (auto) (0.0-0.2) /100WBC Sodium 139 (135-145) mmol/L Potassium 4.2 (3.3-5.1) mmol/L Chloride 105 (96-108) mmol/L Carbon Dioxide 23 (22-29) mmol/L Anion Gap 15 (12-20) BUN 11 D (9-16) mg/dL Creatinine 0.84 (0.5-1.4) mg/dL Estim Creat Clear Calc 65.3 Estimated GFR > 60 POC Glucose 216 H (60-115) mg/dL Random Glucose 176 H (60-115) mg/dL Calcium 9.7 D (8.4-10.2) mg/dL Total Bilirubin 0.4 (0.0-1.0) mg/dL AST 15 (5-31) U/L ALT 17 (0-31) U/L Alkaline Phosphatase 66 (39-117) U/L Total Protein 8.0 (6.5-8.0) g/dL Albumin 4.3 (3.5-5.0) g/dL Urine Color Urine Appearance Urine pH (5.0-8.0) Ur Specific [place] (1.005-1.025) Urine Protein (NEG-TRACE) MG/DL Urine Glucose (UA) (NEG) MG/DL Urine Ketones (NEG) MG/DL Urine Blood (NEG) Urine Nitrite (NEG) Ur Leukocyte Esterase (NEG) Urine RBC (0) /HPF Urine WBC (0-4) /HPF Ur Squamous Epith Cells /LPF Urine Bacteria /LPF COVID-19 (DAVE) Negative (Negative) COVID-19 Clin Com See Note 05/16/21 05/16/21 05/17/21 Range/Units 17:35 20:37 08:22 WBC (4.8-10.8) X10*3/uL RBC (4.20-5.50) X10*6/uL Hgb (12.0-16.0) g/dl Hct (37.0-47.0) % MCV (80.0-98.0) fL MCH (27.0-33.0) pg MCHC (31.0-35.0) g/dl RDW (11.0-16.0) % Plt Count (160-400) X10*3/uL MPV (9.4-12.3) fL Immature Gran % (Auto) (0.0-0.4) % Neut % (Auto) (45-73) % Lymph % (Auto) (20-40) % [place] % (Auto) (2-11) % Eos % (Auto) (0-4) % Baso % (Auto) (0-2) % Lymph # (Auto) (1.2-4.9) X10*3/uL [place] # (Auto) (0.1-1.2) X10*3/uL Eos # (Auto) (0.0-0.4) X10*3/uL Baso # (Auto) (0.0-0.2) X10*3/uL Abs Immat Gran (auto) (0.00-0.03) X10*3/uL Absolute Neuts (auto) (2.0-8.3) x10*3/uL Absolute Nucleated RBC (0.0-0.012) X10*3/uL Nucleated RBC % (auto) (0.0-0.2) /100WBC Sodium (135-145) mmol/L Potassium (3.3-5.1) mmol/L Chloride (96-108) mmol/L Carbon Dioxide (22-29) mmol/L Anion Gap (12-20) BUN (9-16) mg/dL Creatinine (0.5-1.4) mg/dL Estim Creat Clear Calc Estimated GFR POC Glucose 216 H 263 H 271 H (60-115) mg/dL Random Glucose (60-115) mg/dL Calcium (8.4-10.2) mg/dL Total Bilirubin (0.0-1.0) mg/dL AST (5-31) U/L ALT (0-31) U/L Alkaline Phosphatase (39-117) U/L Total Protein (6.5-8.0) g/dL Albumin (3.5-5.0) g/dL Urine Color Urine Appearance Urine pH (5.0-8.0) Ur Specific [place] (1.005-1.025) Urine Protein (NEG-TRACE) MG/DL Urine Glucose (UA) (NEG) MG/DL Urine Ketones (NEG) MG/DL Urine Blood (NEG) Urine Nitrite (NEG) Ur Leukocyte Esterase (NEG) Urine RBC (0) /HPF Urine WBC (0-4) /HPF Ur Squamous Epith Cells /LPF Urine Bacteria /LPF COVID-19 (DAVE) (Negative) COVID-19 Clin Com Discharge Plan Discharge Clinical Impression: Diabetic polyneuropathy associated with type 2 diabetes mellitus, Fibromyalgia, Acute UTI Patient Disposition: Xfer to Respite Facility Instructions: Urinary Tract Infection in Women (ED), Diabetic Peripheral Neuropathy (ED) Additional Instructions: 1. Reanude todos los medicamentos caseros seg?n lo prescrito. 2. [place] Tylenol / ibuprofeno de venta kristi para controlar el dolor hasta que tenga la oportunidad de hacer un seguimiento con johnson proveedor de atenci?n primaria llamando al consultorio esta ma?love. Regrese a la davon de emergencias por un empeoramiento lloyd de los s?ntomas. Prescriptions: New cephalexin 500 mg capsule 500 mg PO Q12H 5 Days Qty: 10 RF: 0 No Action cholecalciferol (vitamin D3) 50 mcg (2,000 unit) capsule 50 mcg PO DAILY 30 Days Qty: 30 RF: 6 (DME) lancets [TRUEplus Lancets] 33 gauge misc See Rx Instructions .ROUTE .MEDSUPPLY Qty: 100 RF: 0 (DME) lancets [TRUEplus Lancets] 33 gauge misc See Rx Instructions .ROUTE .MEDSUPPLY Qty: 120 RF: 5 simvastatin 40 mg tablet 40 mg PO BEDTIME 30 Days Qty: 30 RF: 5 (DME) FreeStyle Lite Strips Strip See Rx Instructions .ROUTE .MEDSUPPLY Qty: 150 RF: 5 metformin 850 mg tablet 850 mg PO BID 90 Days Qty: 180 RF: 0 citalopram 20 mg tablet 1 tab PO DAILY RF: 0 zolpidem 5 mg tablet 1 tab PO BEDTIME PRN (Reason: Insomnia) RF: 0 (DME) pen needle, diabetic 32 gauge x 5/32 needle See Rx Instructions ea subcut .MEDSUPPLY Qty: 50 RF: 0 topiramate 50 mg tablet 50 mg PO BID RF: 0 clonazepam 0.5 mg tablet 0.5 mg PO DAILY PRN (Reason: Anxiety) RF: 0 valsartan 160 mg tablet 160 mg PO DAILY RF: 0 Artificial Tears (jag/min) 83-15 % ointment 1 applic ophthalmic (eye) DAILY PRN (Reason: Dry Eye(S)) RF: 0 aspirin 81 mg tablet,delayed release (DR/EC) 81 mg PO DAILY RF: 0 albuterol sulfate 90 mcg/actuation HFA aerosol inhaler 2 inh inhalation Q4H PRN (Reason: Wheezing) RF: 0 simethicone 125 mg tablet,chewable 125 mg PO TID RF: 0 Afrezza 4 unit cartridge with inhaler 4 unit inhalation TID 30 Days Qty: 90 RF: 3 Lantus Solostar U-100 Insulin 100 unit/mL (3 mL) insulin pen 30 unit subcut QPM 30 Days Qty: 15 RF: 3 (DME) pen needle, diabetic [BD Deedee 2nd Gen Pen Needle] 32 gauge x 5/32 needle See Rx Instructions .MEDSUPPLY Qty: 100 RF: 4 Referrals: Physician,None [Primary Care Provider] - 1 week Interventions: ED Discharge Assessment Last Done: 05/17/21 10:36 Discharge Date/Time: 05/17/21 10:40 Print Language: English
[2021-05-16] MEDS: LORazepam 1 MG TABLET PO (08:18)
[2021-05-16] MEDS: Ibuprofen 400 MG TABLET PO (08:22)
[2021-05-16] MEDS: cephALEXin 500 MG CAPSULE PO (08:22)
[2021-05-16] MEDS: Acetaminophen 325 MG TABLET 975 MG PO (08:23)
--- NOTE | 2021-05-16 09:32 | PC.NURSE ---
Pt ambulated slowly but with steady gait to pod. emotionally less liable and able to state needs. aware of plan of care and that she awaits crisis eval
[2021-05-16 10:33] LABS: COVID-19 Test Negative (Negative)
--- NOTE | 2021-05-16 10:50 | PHA.MEDREC ---
Pharmacy Consult ? Medication Reconciliation Pharmacy has completed the medication reconciliation. There are no remarkable issues for provider's attention. Monique Mccoy, DawnaD
[2021-05-16 13:25] LABS: Glucose, Whole Blood 216 mg/dL (60-115)
[2021-05-16] MEDS: Simethicone 80 MG TAB.CHEW 160 MG PO ×2 (14:33→20:44)
[2021-05-16] MEDS: Topiramate 25 MG TABLET 50 MG PO ×2 (14:33→20:44)
[2021-05-16] MEDS: Cholecalciferol (Vitamin D3) 25 MCG TABLET 50 MCG PO (14:33)
[2021-05-16] MEDS: Aspirin Enteric Coated 81 MG TABLET.DR PO (14:33)
[2021-05-16] MEDS: metFORMIN HCl 850 MG TABLET PO ×2 (15:02→20:45)
[2021-05-16] MEDS: Valsartan 160 MG TABLET PO (15:02)
--- NOTE | 2021-05-16 16:04 | PC.NURSE ---
called [facility] to verify that they had info in regards to [facility], they later confirmed they did not, it was orignially sent at 11am. re faxed info to [facility] from [facility] after leaving message with ronald.
[2021-05-16 17:40] LABS: Glucose, Whole Blood 216 mg/dL (60-115)
[2021-05-16] MEDS: Acetaminophen 325 MG TABLET 650 MG PO (19:26)
[2021-05-16 20:41] LABS: Glucose, Whole Blood 263 mg/dL (60-115)
[2021-05-16] MEDS: Insulin Glargine,Hum.rec.anlog 100 UNIT/ML 10 ML VIAL 30 UNIT SUBCUT (20:44)
[2021-05-16] MEDS: Atorvastatin Calcium 20 MG TABLET PO (20:45)
[2021-05-16] MEDS: Zolpidem Tartrate 5 MG TABLET PO (21:04)
[2021-05-17 00:43] VITALS: RESP 16
[2021-05-17 01:28] VITALS: BP 150/87; PULSE 86; RESP 16; TEMP 36.7; O2SAT 98
[2021-05-17] MEDS: Ibuprofen 400 MG TABLET PO (01:38)
--- NOTE | 2021-05-17 05:32 | PC.NURSE ---
Patient overall slept well, patient was out of room briefly for 2 times for leg pain, administered ibuprofen 400 mg as ordered with + effect, patient is primarily Thai speaking, compliant with her medication, patient is IBBM without sliding scale order, behavior calm and quiet, appetite good, patient was evaluated by [facility] with disposition to d/c to respite, [facility] will arrange the ride, VSS, patient is positive for UTI and being treated with antibiotic, will continue to monitor.
[2021-05-17 08:26] LABS: Glucose, Whole Blood 271 mg/dL (60-115)
[2021-05-17] MEDS: metFORMIN HCl 850 MG TABLET PO (08:49)
[2021-05-17] MEDS: Topiramate 25 MG TABLET 50 MG PO (08:49)
[2021-05-17] MEDS: Valsartan 160 MG TABLET PO (08:49)
[2021-05-17] MEDS: Cholecalciferol (Vitamin D3) 25 MCG TABLET 50 MCG PO (08:50)
[2021-05-17] MEDS: Aspirin Enteric Coated 81 MG TABLET.DR PO (08:50)
[2021-05-17] MEDS: cephALEXin 500 MG CAPSULE PO (08:50)
[2021-05-17] MEDS: Insulin Lispro 100 UNIT/ML 3 ML VIAL SUBCUT (08:50)
--- NOTE | 2021-05-17 09:09 | PC.NURSE ---
Per [facility], plan for discharge with ride provided by [facility] at 9:30am today. Awaiting ride. Pt medicated with Insulin 6 units for POC 271, and other usual medications. Eating well. Occasionally tearful, but pleasant and cooperative with staff. Vitals stable. C/O occasional back pain.
[2021-05-17 09:24] VITALS: BP 173/91; PULSE 99; RESP 16; TEMP 37; O2SAT 98
== END 2021-05-17 10:40 ==
PROVIDERS: Emergency Provider Student in an Organized Health Care Education/Training Program
DX: E11.42 Type 2 diabetes mellitus with diabetic polyneuropathy (principal); M79.7 Fibromyalgia; N39.0 Urinary tract infection, site not specified; I10 Essential (primary) hypertension; G51.0 Bell's palsy; Z79.4 Long term (current) use of insulin; Z20.822 Contact with and (suspected) exposure to COVID-19
CPT/HCPCS: 36415; 80053; 81001; 82947; 85025; 87086; 87635; 93005; 93971; 96374; 99285

== ENCOUNTER → 2021-06-21 09:47 | Outpatient (BNVA) | payer MEDICARE, SELFPAY | PROVIDERS: PCP Internal Medicine | DX: R31.29 Other microscopic hematuria (principal); E11.65 Type 2 diabetes mellitus with hyperglycemia | CPT/HCPCS: Q3014 ==

== ENCOUNTER → 2021-09-04 10:35 | Outpatient (BNVA) | payer MEDICARE, SELFPAY | PROVIDERS: PCP Internal Medicine; Visit Provider Nurse Practitioner Gerontology | DX: E11.65 Type 2 diabetes mellitus with hyperglycemia (principal); E11.42 Type 2 diabetes mellitus with diabetic polyneuropathy; E78.5 Hyperlipidemia, unspecified; E66.9 Obesity, unspecified; E55.9 Vitamin D deficiency, unspecified; I10 Essential (primary) hypertension; Z79.4 Long term (current) use of insulin; Z68.32 Body mass index [BMI] 32.0-32.9, adult | CPT/HCPCS: 82947; 83036; 96372; 99212; J1815 ==

== ENCOUNTER 2021-10-09 01:00 | Emergency (ER) | payer OTHER, SELFPAY ==
--- NOTE | ~2021-10-09 | XR_ITS ---
EXAMINATION: XR SHOULDER, LEFT CLINICAL INFORMATION: Pain, fall 3 days ago COMPARISON: 06/06/2020 chest x-ray TECHNIQUE: Three views of the left shoulder. FINDINGS: Glenohumeral alignment is anatomic. No acute fracture is seen. Small calcification lateral to the humeral head suggests calcific rotator cuff tendinopathy. The acromioclavicular joint appears intact. XR/XR shoulder LT min 2V IMPRESSION: No acute findings identified.
[2021-10-09 01:10] VITALS: BP 154/78; PULSE 95; RESP 16; TEMP 36.9; O2SAT 99; BMI 50.3
--- NOTE | 2021-10-09 01:28 | ED.GENADULT ---
HPI - General Adult General Chief complaint: General Medical Stated complaint: headache Time Seen by Provider: 10/09/21 01:28 Source: patient Mode of arrival: EMS History of Present Illness HPI narrative: Patient history of fibromyalgia diabetes depression ran out of her med pain medication for few months came by ambulance for increased pain in the left shoulder area for last few months similar to that pain in the fibromyalgia. Patient states none of the medicine is working patient blood sugar is usually controlled prior to arrival she had some juice which had sugar which increased blood sugar to 440 Related Data Home Medications Medication Instructions Recorded Confirmed aspirin 81 mg tablet,delayed 81 mg PO DAILY 05/23/20 05/16/21 release clonazepam 0.5 mg tablet 0.5 mg PO DAILY PRN 05/23/20 05/16/21 pen needle, diabetic 32 gauge x #50 ea 05/23/20 12/24/20 topiramate 50 mg tablet 50 mg PO BID 05/23/20 05/16/21 valsartan 160 mg tablet 160 mg PO DAILY 05/23/20 09/04/21 white petrolatum-mineral oil 83 1 applic OPHTHALMIC (EYE) DAILY 05/23/20 05/16/21 %-15 % eye ointment PRN g albuterol sulfate 90 mcg/actuation 2 inh INHALATION Q4H PRN g 09/17/20 05/16/21 aerosol inhaler lancets 33 gauge (TRUEplus Lancets) #100 ea 11/20/20 12/24/20 simethicone 125 mg chewable tablet 125 mg PO TID 12/24/20 05/16/21 citalopram 20 mg tablet 1 tab PO DAILY 05/16/21 05/16/21 zolpidem 5 mg tablet 1 tab PO BEDTIME PRN 05/16/21 05/16/21 mirtazapine 7.5 mg tablet 7.5 mg PO BEDTIME 06/21/21 lisinopril 20 mg tablet 20 mg PO DAILY 09/04/21 09/04/21 Previous Rx's Medication Instructions Recorded pen needle, diabetic 32 gauge x #100 ea 12/24/20 (BD Deedee 2nd Gen Pen Needle) blood sugar diagnostic (FreeStyle #150 ea 01/29/21 Lite Strips) lancets 33 gauge (TRUEplus Lancets) #120 ea 02/18/22 dulaglutide 0.75 mg/0.5 mL 0.75 mg (0.5 mL) SUBCUT QWEEK #6 ml 09/04/21 subcutaneous pen injector (Trulicity) atorvastatin 20 mg tablet 20 mg PO BEDTIME #30 tab 09/10/21 Lantus Solostar U-100 Insulin 100 16 unit (0.16 mL) SUBCUT QPM 30 09/16/21 unit/mL (3 mL) subcutaneous pen Days #15 ml NS (insulin glargine) metformin 500 mg tablet,extended 500 mg PO QPM #30 tab 09/16/21 release 24 hr cholecalciferol (vitamin D3) 50 50 mcg PO DAILY 30 Days #30 cap 09/24/21 mcg (2,000 unit) capsule tramadol 50 mg tablet 50 mg PO Q6H PRN #20 tab 10/09/21 Allergies Allergy/AdvReac Type Severity Reaction Status Date / Time homosalate [From Coppertone] Allergy Mild RASH Verified 09/04/21 10:59 octinoxate [From Coppertone] Allergy Mild RASH Verified 09/04/21 10:59 oxybenzone [From Coppertone] Allergy Mild RASH Verified 09/04/21 10:59 diovan Allergy Unknown rash Uncoded 09/04/21 10:59 suntan lotion Allergy Unknown rash Uncoded 09/04/21 10:59 Review of Systems Review of Systems: Yes all other systems are reviewed and are negative [facility] Past Medical History Medical History Depression Diabetes type 2, uncontrolled Diabetic polyneuropathy associated with type 2 diabetes mellitus Dyslipidemia Fibromyalgia Hypertension residential (current) use of insulin Lung cancer Obesity (BMI 30-39.9) Vitamin D deficiency Surgical History No pertinent past surgical history Family History Family History Father Osteoporosis Mother Stroke Cancer Social History Social History Household Members: None Alcohol intake: never Patient Tobacco Use Status: Never used Tobacco Physical Exam ED Vital Signs: Vital Signs - 24 hr 10/09/21 01:10 Temperature 98.5 F Pulse Rate 95 Respiratory Rate 16 Blood Pressure 154/78 H Pulse Oximetry 99 BMI result Body Mass Index 50.3 Appearance: Alert. Oriented X3. No acute distress. ENT: Pharynx normal. Oral Mucosa moist Neck: Normal inspection. Neck supple. Tenderness left scapular area and trapezius area CVS: Normal heart rate and rhythm. Pulses normal. Respiratory: No respiratory distress. Equal air entry bilateral, no wheezing/rales/rhonchi Abdomen: Soft and nontender. Bowel sounds are present, no mass palpable, no CVA tenderness Skin: Skin warm and dry. Normal skin color. Normal skin turgor. Extremities: No lower extremity edema. No calf tenderness Neuro: Oriented X 3. No motor deficit. No sensory deficit.No cerebellar signs , cranial nerves II-XII intact Medical Decision Making MDM Narrative Medical decision making narrative: Patient's fibromyalgia with depression comes with increase bilateral shoulder pain left more than the right as she ran out of her pain medication for few months patient had elevated blood sugar secondary to noncompliance will check the labs give IV fluids Humalog pain medication anticipated discharge her home on tramadol patient signed out to Dr. Rodriguez Discharge Plan Discharge Clinical Impression: Fibromyalgia, Diabetes type 2, uncontrolled Patient Disposition: Still a Patient Instructions: Fibromyalgia (ED), Diabetic Hyperglycemia (ED) Additional Instructions: Take her insulin on time and diet precautions as advised Pain medication for fibromyalgia as prescribed Follow with PCP Prescriptions: New tramadol 50 mg tablet 50 mg PO Q6H PRN (Reason: pain) Qty: 20 0RF No Action (DME) lancets [TRUEplus Lancets] 33 gauge misc See Rx Instructions .ROUTE .MEDSUPPLY Qty: 100 0RF Rx Instructions: As directed test blood sugar 4 times a day (DME) FreeStyle Lite Strips Strip See Rx Instructions .ROUTE .MEDSUPPLY Qty: 150 5RF Rx Instructions: 4 times a day (DME) lancets [TRUEplus Lancets] 33 gauge misc See Rx Instructions .ROUTE .MEDSUPPLY Qty: 120 11RF Rx Instructions: 4 times a day atorvastatin 20 mg tablet 20 mg PO BEDTIME Qty: 30 11RF Lantus Solostar U-100 Insulin 100 unit/mL (3 mL) insulin pen 16 unit subcut QPM 30 Days Qty: 15 6RF metformin 500 mg tablet extended release 24 hr 500 mg PO QPM Qty: 30 6RF cholecalciferol (vitamin D3) 50 mcg (2,000 unit) capsule 50 mcg PO DAILY 30 Days Qty: 30 0RF citalopram 20 mg tablet 1 tab PO DAILY 0RF zolpidem 5 mg tablet 1 tab PO BEDTIME PRN (Reason: Insomnia) 0RF (DME) pen needle, diabetic 32 gauge x 5/32 needle See Rx Instructions ea subcut .MEDSUPPLY Qty: 50 0RF Rx Instructions: As directed topiramate 50 mg tablet 50 mg PO BID 0RF clonazepam 0.5 mg tablet 0.5 mg PO DAILY PRN (Reason: Anxiety) 0RF valsartan 160 mg tablet 160 mg PO DAILY 0RF Artificial Tears (jag/min) 83-15 % ointment 1 applic ophthalmic (eye) DAILY PRN (Reason: Dry Eye(S)) 0RF aspirin 81 mg tablet,delayed release (DR/EC) 81 mg PO DAILY 0RF albuterol sulfate 90 mcg/actuation HFA aerosol inhaler 2 inh inhalation Q4H PRN (Reason: Wheezing) 0RF simethicone 125 mg tablet,chewable 125 mg PO TID 0RF (DME) pen needle, diabetic [BD Deedee 2nd Gen Pen Needle] 32 gauge x 5/32 needle See Rx Instructions .MEDSUPPLY Qty: 100 4RF Rx Instructions: 1 times a day mirtazapine 7.5 mg tablet 7.5 mg PO BEDTIME 0RF lisinopril 20 mg tablet 20 mg PO DAILY 0RF Trulicity 0.75 mg/0.5 mL pen injector 0.75 mg subcut QWEEK Qty: 6 3RF
[2021-10-09] MEDS: 0.9 % Sodium Chloride 1,000 ML 999 ML IV ×2 (01:57→03:08)
[2021-10-09 01:58] VITALS: RESP 20
[2021-10-09 01:58] LABS: MANUAL DIFF FLAG NO
[2021-10-09] MEDS: ondansetron HCL 4 MG/2 ML VIAL IVPUSH (01:58)
[2021-10-09] MEDS: Morphine Sulfate 4 MG/ML CARTRIDGE IVPUSH (01:58)
[2021-10-09] MEDS: Insulin Lispro 100 UNIT/ML 3 ML VIAL 10 UNIT SUBCUT (01:58)
[2021-10-09 02:02] LABS: Basophils Percent Auto 0.2 % (0-2); Eosinophils Absolute Auto 0.1 X10*3/uL (0.0-0.4); Eosinophils Percent Auto 0.7 % (0-4); Hematocrit 42.2 % (37.0-47.0); Hemoglobin 14.3 g/dl (12.0-16.0); Imm Gran Abs Auto 0.04 X10*3/uL (0.00-0.03); Imm Gran Pct Auto 0.4 % (0.0-0.4); Lymphocytes Absolute Auto 2.6 X10*3/uL (1.2-4.9); Lymphocytes Percent Auto 23.8 % (20-40); Mean Corpuscular HGB Conc 33.9 g/dl (31.0-35.0); Mean Corpuscular Volume 91.3 fL (80.0-98.0); Mean Platelet Volume 11.7 fL (9.4-12.3); Monocytes Absolute Auto 0.6 X10*3/uL (0.1-1.2); Monocytes Percent Auto 5.6 % (2-11); Neutrophils Absolute Auto 7.6 x10*3/uL (2.0-8.3); Neutrophils Percent Auto 69.3 % (45-73); Platelet Count 249 X10*3/uL (160-400); Red Blood Count 4.62 X10*6/uL (4.20-5.50); Red Cell Distribution Width 12.5 % (11.0-16.0); White Blood Count 10.9 X10*3/uL (4.8-10.8)
[2021-10-09 02:19] VITALS: BP 155/84; PULSE 85; RESP 16; O2SAT 98
[2021-10-09 02:40] LABS: Anion Gap 15 (12-20); Blood Urea Nitrogen 20 mg/dL (9-16); Calcium 9.3 mg/dL (8.4-10.2); Carbon Dioxide 19 mmol/L (22-29); Chloride 103 mmol/L (96-108); Creatinine Clr Calc Pharmacy 38.3; Estimated Glomerular Filt Rate 50; Glucose Random 506 mg/dL (60-115); Potassium 4.9 mmol/L (3.3-5.1); Sodium 132 mmol/L (135-145)
[2021-10-09 03:01] LABS: Glucose, Whole Blood 409 mg/dL (60-115)
[2021-10-09 03:06] VITALS: BP 120/68; PULSE 80; RESP 18; O2SAT 98
[2021-10-09 04:04] LABS: Glucose, Whole Blood 287 mg/dL (60-115)
[2021-10-09 04:05] VITALS: BP 134/68; PULSE 82; RESP 20; O2SAT 98
== END 2021-10-09 05:16 | disposition home or self-care (01) ==
PROVIDERS: Emergency Provider Internal Medicine; PCP Internal Medicine
DX: M79.7 Fibromyalgia (principal); M25.512 Pain in left shoulder; R51.9 Headache, unspecified; E11.9 Type 2 diabetes mellitus without complications; Z79.899 Other long term (current) drug therapy; Z79.4 Long term (current) use of insulin
CPT/HCPCS: 36415; 73030; 80048; 82947; 85025; 96361; 96374; 96375; 99284; J2270; J2405

== ENCOUNTER 2022-03-06 15:36 | Outpatient (REF) | payer OTHER, SELFPAY ==
--- NOTE | ~2022-03-06 | XR_ITS ---
EXAMINATION: XR CERVICAL SPINE XR SHOULDER, LEFT CLINICAL INFORMATION: Pain in the left shoulder, neck pain. COMPARISON: Left shoulder x-rays of 10/09/2021, cervical spine x-rays of 06/07/2012 and selected images of the cervical spine MRI of 06/22/2012. TECHNIQUE: Cervical spine 4 views; AP, lateral, swimmer's and open-mouth views. 3 views of the left shoulder. FINDINGS: Cervical Spine: The vertebral body heights and alignment are maintained. [id number] narrowing of the C5-C6 and C6-C7 disc spaces with marginal endplate spurring. Moderate disc space narrowing at C3-C4. No evidence of prevertebral soft tissue swelling. The airway is patent. Atlantoaxial distance is normal. Mild facet arthropathy is noted at multiple levels. No evidence of cervical ribs. Visualized lung apices are unremarkable. Open-mouth view is unremarkable. Left Shoulder: Acromioclavicular and glenohumeral joint alignments are maintained. There is no evidence of acute fracture or dislocation. Small calcific density is noted adjacent to the lateral aspect of the humeral head, best seen on the scapular Y view, likely representing changes of calcific tendinosis. Otherwise, no significant abnormality of the bones, joints or soft tissues is demonstrated. XR/XR cervical spine 3V IMPRESSION: Mild cervical spondylolysis, mildly worsened compared to previous x-ray of 2011. No acute osseous abnormality in the left shoulder. Findings suggestive of calcific tendinosis in the shoulder.
--- NOTE | ~2022-03-06 | XR_ITS ---
EXAMINATION: XR CERVICAL SPINE XR SHOULDER, LEFT CLINICAL INFORMATION: Pain in the left shoulder, neck pain. COMPARISON: Left shoulder x-rays of 10/09/2021, cervical spine x-rays of 06/07/2012 and selected images of the cervical spine MRI of 06/22/2012. TECHNIQUE: Cervical spine 4 views; AP, lateral, swimmer's and open-mouth views. 3 views of the left shoulder. FINDINGS: Cervical Spine: The vertebral body heights and alignment are maintained. [id number] narrowing of the C5-C6 and C6-C7 disc spaces with marginal endplate spurring. Moderate disc space narrowing at C3-C4. No evidence of prevertebral soft tissue swelling. The airway is patent. Atlantoaxial distance is normal. Mild facet arthropathy is noted at multiple levels. No evidence of cervical ribs. Visualized lung apices are unremarkable. Open-mouth view is unremarkable. Left Shoulder: Acromioclavicular and glenohumeral joint alignments are maintained. There is no evidence of acute fracture or dislocation. Small calcific density is noted adjacent to the lateral aspect of the humeral head, best seen on the scapular Y view, likely representing changes of calcific tendinosis. Otherwise, no significant abnormality of the bones, joints or soft tissues is demonstrated. XR/XR shoulder LT min 2V IMPRESSION: Mild cervical spondylolysis, mildly worsened compared to previous x-ray of 2011. No acute osseous abnormality in the left shoulder. Findings suggestive of calcific tendinosis in the shoulder.
== END 2022-03-06 15:37 | disposition home or self-care (01) ==
LOC: HO.XRAY 15:36
PROVIDERS: Absent Provider Internal Medicine; PCP Internal Medicine; Visit Provider Family Medicine
DX: M25.512 Pain in left shoulder (principal); M54.2 Cervicalgia
CPT/HCPCS: 72040; 73030

== ENCOUNTER 2022-04-04 15:03 | Outpatient (REF) | payer OTHER, SELFPAY ==
--- NOTE | ~2022-04-04 | MM_ITS ---
EXAMINATION: MM SCREENING DIGITAL BREAST TOMOSYNTHESIS, BILATERAL CLINICAL INFORMATION: Screening. Asymptomatic. The lifetime risk of breast cancer based on the Tyrer-Cuzick Model is 3%. COMPARISON: Mammography: 02/16/2019, 09/07/2017, 06/12/2016 TECHNIQUE: Digital breast tomosynthesis is performed in both the craniocaudal and mediolateral oblique views along with computer-aided detection (CAD). Synthesized 2D images are generated from the tomosynthesis. FINDINGS: The breasts are almost entirely fatty (ACR BI-RADS breast composition Category a). There are no significant masses, abnormal calcifications, or other abnormalities. Background stromal markings are similar to prior studies. No architectural changes. Skin contours are smooth. MM/MM tomosynthesis screening BI IMPRESSION: No mammographic evidence of malignancy. ASSESSMENT: BI-RADS 1: Negative RECOMMENDATION: Routine annual mammography screening. This patient's information was entered into a reminder system with a target due date for their next mammogram.
== END 2022-04-04 15:04 | disposition home or self-care (01) ==
LOC: HO.MAMMO 15:03
PROVIDERS: PCP Internal Medicine; Visit Provider Internal Medicine
DX: Z12.31 Encounter for screening mammogram for malignant neoplasm of breast (principal)
CPT/HCPCS: 77063; 77067

== ENCOUNTER 2022-05-08 15:47 | Outpatient (REF) | payer OTHER, SELFPAY | END 2022-05-08 15:48 | disposition home or self-care (01) | LOC: HO.MRI 15:47 | PROVIDERS: Visit Provider Family Medicine | DX: Z13.89 Encounter for screening for other disorder (principal) ==

== ENCOUNTER → 2022-06-05 15:38 | Outpatient (BNVA) | payer OTHER, SELFPAY | PROVIDERS: PCP Internal Medicine; Visit Provider Surgery | DX: Z12.11 Encounter for screening for malignant neoplasm of colon (principal) | CPT/HCPCS: 99202 ==

== ENCOUNTER → 2022-07-29 14:49 | Outpatient (BNVA) | payer OTHER, SELFPAY | PROVIDERS: Visit Provider Physician Assistant | DX: R35.1 Nocturia (principal) | CPT/HCPCS: 99202 ==

== ENCOUNTER → 2022-08-14 14:35 | Outpatient (BNVA) | payer OTHER, SELFPAY | PROVIDERS: PCP Internal Medicine; Visit Provider Psychiatry & Neurology Neurology | DX: M25.512 Pain in left shoulder (principal); R20.0 Anesthesia of skin; R20.2 Paresthesia of skin; G54.0 Brachial plexus disorders; M54.2 Cervicalgia; R53.1 Weakness | CPT/HCPCS: 99202 ==

== ENCOUNTER 2022-09-30 15:01 | Outpatient (REF) | payer OTHER, SELFPAY ==
[2022-09-30 17:04] LABS: Estimated Average Glucose 295 mg/dL; Hemoglobin A1c % 11.9 %
== END 2022-09-30 15:02 | disposition home or self-care (01) ==
LOC: HO.LAB 15:01
PROVIDERS: PCP Family Medicine; Visit Provider Nurse Practitioner Family
DX: M25.512 Pain in left shoulder (principal); M47.812 Spondylosis without myelopathy or radiculopathy, cervical region; M79.7 Fibromyalgia; E11.65 Type 2 diabetes mellitus with hyperglycemia; G51.0 Bell's palsy; R20.0 Anesthesia of skin; R20.2 Paresthesia of skin; R29.898 Other symptoms and signs involving the musculoskeletal system; Z79.899 Other long term (current) drug therapy
CPT/HCPCS: 36415; 83036; 99202

== ENCOUNTER 2022-10-23 14:34 | Outpatient (REF) | payer OTHER, SELFPAY ==
--- NOTE | ~2022-10-23 | CT_ITS ---
EXAMINATION: CT CERVICAL SPINE WITHOUT CONTRAST CLINICAL INFORMATION: Weakness. COMPARISON: Previous CT from 2007, MRI from 2011 and x-ray 03/2022, chest CTA 2019. TECHNIQUE: Axial images through the cervical spine without contrast. Sagittal and coronal reconstructions on the technologist workstation were performed. This CT examination was performed using dose optimization techniques as appropriate, variously including the following: *Automated exposure control *Adjustment of mA and/or kV according to patient size (this includes techniques or standardized protocols for targeted exams where dose is matched to indication/reason for exam; i.e. extremities or head) *Use of iterative reconstruction technique DLP: 471 mGy-cm FINDINGS: Bone alignment is normal. No fracture or dislocation. Degenerative spondylosis at C5-C6 and C6-C7. Disc space narrowing at C3-C4, C5-C6 and C6-C7. At C2-C3 there is mild disc bulge. No disc herniation. Neural foramen are patent. At C3-C4 there is mild diffuse disc bulge. No disc herniation. Neural foramen are patent. At C4-C5 there is left paracentral disc bulge or small herniation. Neural foramen are patent. C4-C5 there is diffuse disc bulge. There is mild secondary spinal stenosis due to disc osteophyte complex. There is mild bilateral neuroforaminal narrowing from bony osteophyte. At C6-C7 there is mild disc bulge. No disc herniation. Neural foramen are patent. At C7-T1 no disc herniation or bulge. Neural foramen are patent. Paraspinal soft tissues are normal. 4 mm right upper lobe nodule, this is new or increased from previous chest CTA in 2019. CT/CT cervical spine wo IV con IMPRESSION: Multilevel spondylosis and disc disease changes, greatest at C4-C5 and C5-C6. New or increasing 4 mm right upper lobe nodule. Fleischner guidelines were followed.
--- NOTE | ~2022-10-23 | CT_ITS ---
EXAMINATION: CT SHOULDER WITHOUT CONTRAST, LEFT CLINICAL INFORMATION: Left shoulder pain. Weakness. COMPARISON: Left shoulder radiographs dated 03/06/2022. TECHNIQUE: Contiguous axial CT images of the left shoulder were obtained without contrast. Sagittal and coronal reformats were provided and reviewed. This CT examination was performed using dose optimization techniques as appropriate, variously including the following: *Automated exposure control *Adjustment of mA and/or kV according to patient size (this includes techniques or standardized protocols for targeted exams where dose is matched to indication/reason for exam; i.e. extremities or head) *Use of iterative reconstruction technique. DOSE: 730 mGy-cm. FINDINGS: No acute fracture or dislocation. Small acromioclavicular marginal osteophytes. No glenohumeral joint space narrowing or marginal osteophytes. Tiny enthesopathic spurs along the greater tuberosity. No concerning lytic or blastic osseous lesion. No evidence of avascular necrosis. The rotator cuff muscles and tendons are grossly intact, however, evaluation significantly limited on CT examination. No muscle atrophy. No significant glenohumeral joint effusion. No abnormal soft tissue mass or fluid collection. No significant axillary lymphadenopathy. The visualized left lung is clear. CT/CT shoulder LT wo IV con IMPRESSION: 1. No acute fracture or dislocation. 2. Mild acromioclavicular osteoarthritis. 3. Grossly intact rotator cuff muscles and tendons, however, evaluation significantly limited on CT examination. No muscle atrophy.
--- NOTE | ~2022-10-23 | XR_ITS ---
EXAMINATION: XR CHEST CLINICAL INFORMATION: G54.0 - Brachial plexus disorders COMPARISON: 06/06/2020, 03/16/2019, 11/15/2018 TECHNIQUE: 2 views of the chest were obtained. FINDINGS: The lungs are clear. The heart is normal in size. The hilar and mediastinal contours are normal. No airspace consolidation, vascular congestion, groundglass opacity, or effusion. The hilar and mediastinal contours and visualized bony structures are unremarkable. XR/XR chest 2V IMPRESSION: Unremarkable examination.
== END 2022-10-23 14:35 | disposition home or self-care (01) ==
LOC: HO.CT 14:34
PROVIDERS: Visit Provider Psychiatry & Neurology Neurology
DX: M25.512 Pain in left shoulder (principal); R53.1 Weakness; M54.2 Cervicalgia; G54.0 Brachial plexus disorders
CPT/HCPCS: 71046; 72125; 73200

== ENCOUNTER 2022-11-11 18:26 | Inpatient (IN) | payer OTHER, SELFPAY ==
[2022-11-11 18:47] VITALS: BP 156/82; BP 176/91; PULSE 96; RESP 18; TEMP 36.8; O2SAT 97; BMI 33.5
[2022-11-11 19:02] VITALS: BP 178/95; PULSE 98; RESP 15; TEMP 36.8; O2SAT 97
[2022-11-11] MEDS: LORazepam 1 MG TABLET 2 MG PO (19:19)
--- NOTE | 2022-11-11 19:26 | PC.NURSE ---
Pt ca&ox3. Pt repositioned and now resting comfortably in bed. Meds given per mar. No signs of distress. Will continue to monitor.
--- NOTE | 2022-11-11 19:45 | ECG_ITS ---
Test Reason : CHEST PAIN Blood Pressure : / mmHG Vent. Rate : 087 BPM Atrial Rate : 087 BPM P-R Int : 126 ms QRS Dur : 086 ms QT Int : 328 ms P-R-T Axes : 073 020 -21 degrees QTc Int : 394 ms Normal sinus rhythm Nonspecific T wave abnormality Abnormal ECG When compared with ECG of 16-MAY-2021 03:28, Nonspecific T wave abnormality now evident in Lateral leads Referred By: Pascual Kay Electronically Signed By:ALBA POLLACK
[2022-11-11 20:57] VITALS: BP 153/71; RESP 13; TEMP 36.8; O2SAT 98
[2022-11-11 21:00] LABS: MANUAL DIFF FLAG NO
--- NOTE | 2022-11-11 21:02 | PC.NURSE ---
Pt ca&ox3. Pt denies chest pain and sob. No signs of distress. Pt resting comfortably at this time. Will continue to monitor.
[2022-11-11 21:04] LABS: Basophils Percent Auto 0.2 % (0-2); Eosinophils Absolute Auto 0.1 X10*3/uL (0.0-0.4); Eosinophils Percent Auto 0.6 % (0-4); Hematocrit 41.1 % (37.0-47.0); Hemoglobin 13.6 g/dl (12.0-16.0); Imm Gran Abs Auto 0.02 X10*3/uL (0.00-0.03); Imm Gran Pct Auto 0.2 % (0.0-0.4); Lymphocytes Absolute Auto 2.2 X10*3/uL (1.2-4.9); Lymphocytes Percent Auto 21.9 % (20-40); Mean Corpuscular HGB Conc 33.1 g/dl (31.0-35.0); Mean Corpuscular Volume 93.6 fL (80.0-98.0); Monocytes Absolute Auto 0.4 X10*3/uL (0.1-1.2); Monocytes Percent Auto 4.3 % (2-11); Neutrophils Absolute Auto 7.4 x10*3/uL (2.0-8.3); Neutrophils Percent Auto 72.8 % (45-73); Platelet Count 222 X10*3/uL (160-400); Red Blood Count 4.39 X10*6/uL (4.20-5.50); Red Cell Distribution Width 12.6 % (11.0-16.0); White Blood Count 10.2 X10*3/uL (4.8-10.8)
[2022-11-11 21:18] LABS: Amphetamine Screen Urine Not Detected (Not Detect); Barbiturates, Urine Not Detected (Not Detect); Benzodiazepines Screen Urine Not Detected (Not Detect); Cannabinoid Screen Urine Not Detected (Not Detect); Cocaine Screen Urine Not Detected (Not Detect); Fentanyl, urine Not Detected (Not Detect); Opiate Screen Urine Not Detected (Not Detect); Phencyclidine Screen Urine Not Detected (Not Detect)
[2022-11-11 21:26] LABS: Alanine Aminotransferase 26 U/L (0-31); Albumin Level 3.7 g/dL (3.5-5.0); Alkaline Phosphatase 102 U/L (39-117); Anion Gap 12 (12-20); Aspartate Amino Transferase 25 U/L (5-31); Bilirubin Total 0.3 mg/dL (0.0-1.0); Blood Urea Nitrogen 19 mg/dL (9-16); Calcium 9.6 mg/dL (8.4-10.2); Carbon Dioxide 25 mmol/L (22-29); Chloride 108 mmol/L (96-108); Creatinine Clr Calc Pharmacy 52.2; Estimated Glomerular Filt Rate 52; Glucose Random 331 mg/dL (60-115); Magnesium 2.1 mg/dL (1.6-2.6); Potassium 4.8 mmol/L (3.3-5.1); Sodium 140 mmol/L (135-145)
[2022-11-11 21:38] LABS: Thyroid Stimulating Hormone 0.68 uIU/mL (0.32-4.0)
--- NOTE | 2022-11-11 22:21 | PC.NURSE ---
Pt ca&ox3. Pt assisted on bedside commode by tech will obtain urine sample. Pt denies chest pain and sob. No signs of distress. Will continue to monitor.
[2022-11-11 22:38] VITALS: BP 131/70; PULSE 81; RESP 13; TEMP 36.8; O2SAT 97
[2022-11-11 22:45] LABS: Appearance Urine Cloudy; Color Urine Yellow; Glucose Urine UA >=1000 mg/dL (Negative); Leukocyte Esterase Urine Negative (Negative); Nitrite Urine Positive (Negative); UMIC TRIGGER UACC YES; Urine Blood Negative (Negative); Urine Ketones Trace mg/dL (Negative); Urine Protein Negative (Neg-Trace)
[2022-11-11 22:54] LABS: Bacteria Urine 4+ (None Seen); Hyaline Casts Urine 0-2 /LPF (0-2); RBC Urine 0-2 /HPF (0-2); Squamous Epithelial Cell Urine 0-2 /HPF (0-2); UACC Culture Trigger YES
[2022-11-11 23:19] LABS: Ethanol < 10 mg/dL
--- NOTE | 2022-11-12 00:23 | ED_ITS ---
HPI - General Adult General Chief complaint: General Medical Stated complaint: panic attack Time Seen by Provider: 11/11/22 18:59 Source: patient Mode of arrival: EMS Limitations: no limitations History of Present Illness HPI narrative: Patient increased depression crying as she lost 2 of her sons during the last 4 years feels very anxious on arrival tearful denies any SI patient lives alone at home unable to manage her medications Related Data Home Medications Medication Instructions Recorded Confirmed aspirin 81 mg tablet,delayed 81 mg PO DAILY 05/23/20 09/30/22 release clonazepam 0.5 mg tablet 0.5 mg PO DAILY PRN Anxiety 05/23/20 09/30/22 pen needle, diabetic 32 gauge x #50 ea 05/23/20 06/05/22 topiramate 50 mg tablet 50 mg PO BID 05/23/20 09/30/22 white petrolatum-mineral oil 83 1 applic ophthalmic (eye) DAILY 05/23/20 09/30/22 %-15 % eye ointment PRN Dry Eye(S) albuterol sulfate 90 mcg/actuation 2 inh inhalation Q4H PRN Wheezing 09/17/20 09/30/22 aerosol inhaler lancets 33 gauge (TRUEplus Lancets) #100 ea 11/20/20 06/05/22 simethicone 125 mg chewable tablet 125 mg PO TID 12/24/20 09/30/22 citalopram 20 mg tablet 1 tab PO DAILY 05/16/21 09/30/22 mirtazapine 7.5 mg tablet 7.5 mg PO BEDTIME 06/21/21 09/30/22 lisinopril 20 mg tablet 20 mg PO DAILY 09/04/21 09/30/22 gabapentin 100 mg capsule 100 mg PO TID 08/14/22 09/30/22 Previous Rx's Medication Instructions Recorded lancets 33 gauge (TRUEplus Lancets) #120 ea 08/23/21 atorvastatin 20 mg tablet 20 mg PO BEDTIME #30 tabs 09/10/21 cholecalciferol (vitamin D3) 50 50 mcg PO DAILY 30 days #30 caps 09/24/21 mcg (2,000 unit) capsule blood sugar diagnostic (FreeStyle #150 ea 10/23/21 Lite Strips) Lantus Solostar U-100 Insulin 100 22 unit (0.22 mL) subcut QPM 30 11/18/21 unit/mL (3 mL) subcutaneous pen days #15 mL (insulin glargine) pen needle, diabetic 32 gauge x #100 ea 02/24/22 (BD Deedee 2nd Gen Pen Needle) semaglutide 1 mg/dose (4 mg/3 mL) 1 mg (0.75 mL) subcut QWEEK #3 mL 03/16/22 subcutaneous pen injector (Ozempic) metformin 500 mg tablet,extended 500 mg PO BID #60 tabs 06/06/22 release 24 hr bisacodyl 5 mg tablet,delayed 10 mg PO ONCE for colonoscopy prep 07/24/22 release (Dulcolax (bisacodyl)) 1 day #2 tabs cyclobenzaprine 5 mg tablet 5 mg PO TID #90 tabs 08/14/22 gabapentin 300 mg capsule 300 mg PO TID #90 caps 08/14/22 peg 3350-electrolytes 236 240 ml PO ONCE taken the day 09/11/22 gram-22.74 gram-6.74 gram-5.86 before the procedure for gram solution (GaviLyte-G) colonoscopy #4,000 mL Allergies Allergy/AdvReac Type Severity Reaction Status Date / Time COVID-19 vacc, bv (Orig, Allergy Severe Swelling Unverified 09/30/22 16:08 Omicron BA.4/5) (Pfizer) [From Pfizer COVID Bival(12y up)()] homosalate [From Coppertone] Allergy Intermediate RASH, itchy Verified 09/30/22 15:10 octinoxate [From Coppertone] Allergy Intermediate RASH, itchy Verified 09/30/22 15:10 oxybenzone [From Coppertone] Allergy Intermediate RASH, itchy Verified 09/30/22 15:10 diovan Allergy Unknown rash Uncoded 09/30/22 15:10 Review of Systems Review of Systems: Yes all other systems are reviewed and are negative PMFSH Past Medical History Medical History Polanco's palsy Colon cancer screening Depression Diabetes type 2, uncontrolled Diabetic polyneuropathy associated with type 2 diabetes mellitus Dyslipidemia Fibromyalgia Hypertension 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 Lung cancer Neck pain Numbness and tingling in left arm Obesity (BMI 30-39.9) Thoracic outlet syndrome Vitamin D deficiency Surgical History H/O: hysterectomy Family History Family History Father Osteoporosis Mother Stroke Cancer Social History Social History Household Members: None Alcohol intake: never Patient Tobacco Use Status: Never used Tobacco Advance Directives: No Advance Directives Information Provided: No Healthcare Proxy: No Guardian: No Physical Exam ED Vital Signs: Vital Signs - 24 hr 11/11/22 18:47 11/11/22 19:02 11/11/22 20:57 Temperature 98.2 F 98.2 F 98.3 F Pulse Rate 96 98 Respiratory Rate 18 15 13 Blood Pressure 176/91 H 178/95 H 153/71 H Pulse Oximetry 97 97 98 Oxygen Delivery Method Room Air Room Air Room Air 11/11/22 22:38 Temperature 98.2 F Pulse Rate 81 Respiratory Rate 13 Blood Pressure 131/70 Pulse Oximetry 97 Oxygen Delivery Method Room Air BMI result Body Mass Index 33.5 Appearance: Alert. Oriented X3. No acute distress. Crying tearful delusional Eyes: PERRLA, No Nystagmus ENT: Pharynx normal. Oral Mucosa moist Neck: Normal inspection. Neck supple. CVS: Normal heart rate and rhythm. Pulses normal. Respiratory: No respiratory distress. Equal air entry bilateral, no wheezing/rales/rhonchi Abdomen: Soft and nontender. Bowel sounds are present, no mass palpable, no CVA tenderness Skin: Skin warm and dry. Normal skin color. Normal skin turgor. Extremities: No lower extremity edema. No calf tenderness psych: Very delusional tearful and depressed denied any SI Neuro: Oriented X 3. No motor deficit. No sensory deficit.No cerebellar signs , cranial nerves II-XII intact Medications Administered Discontinued Medications Generic Name Dose Route Start Last Admin Trade Name Freq PRN Reason Stop Dose Admin Cefuroxime Axetil 250 mg 11/12/22 00:26 11/12/22 01:08 Cefuroxime Axetil 250 Mg Tablet PO 11/12/22 00:27 250 mg ONCE ONE Administration Lorazepam 2 mg 11/11/22 19:07 11/11/22 19:19 Lorazepam 1 Mg Tablet PO 11/11/22 19:08 2 mg ONCE ONE Administration Medical Decision Making Medical Decision Making MDM Narrative: . Patient with Major depression with increased anxiety very tearful on arrival will get care team evaluation lab workup showed UTI with nitrite positive will give patient Ceftin Patient seen by care team Section 12 for patient's acute depression Lab Data [facility] Lab Attestation statement: I reviewed the patient's lab results. 11/11/22 20:55 11/11/22 20:55 Labs: Lab Results 11/11/22 11/11/22 11/11/22 Range/Units 20:55 20:55 20:55 WBC 10.2 (4.8-10.8) X10*3/uL RBC 4.39 (4.20-5.50) X10*6/uL Hgb 13.6 (12.0-16.0) g/dl Hct 41.1 (37.0-47.0) % MCV 93.6 (80.0-98.0) fL MCH 31.0 (27.0-33.0) pg MCHC 33.1 (31.0-35.0) g/dl RDW 12.6 (11.0-16.0) % Plt Count 222 (160-400) X10*3/uL MPV 12.0 (9.4-12.3) fL Immature Gran % (Auto) 0.2 (0.0-0.4) % Neut % (Auto) 72.8 (45-73) % Lymph % (Auto) 21.9 (20-40) % [place] % (Auto) 4.3 (2-11) % Eos % (Auto) 0.6 (0-4) % Baso % (Auto) 0.2 (0-2) % Lymph # (Auto) 2.2 (1.2-4.9) X10*3/uL [place] # (Auto) 0.4 (0.1-1.2) X10*3/uL Eos # (Auto) 0.1 (0.0-0.4) X10*3/uL Baso # (Auto) 0.0 (0.0-0.2) X10*3/uL Abs Immat Gran (auto) 0.02 (0.00-0.03) X10*3/uL Absolute Neuts (auto) 7.4 (2.0-8.3) x10*3/uL Absolute Nucleated RBC 0.000 (0.0-0.012) X10*3/uL Nucleated RBC % (auto) 0.0 (0.0-0.2) /100WBC Sodium 140 (135-145) mmol/L Potassium 4.8 (3.3-5.1) mmol/L Chloride 108 (96-108) mmol/L Carbon Dioxide 25 (22-29) mmol/L Anion Gap 12 (12-20) BUN 19 H (9-16) mg/dL Creatinine 1.04 (0.5-1.4) mg/dL Estim Creat Clear Calc 52.2 Estimated GFR 52 Random Glucose 331 H (60-115) mg/dL Calcium 9.6 (8.4-10.2) mg/dL Magnesium 2.1 (1.6-2.6) mg/dL Total Bilirubin 0.3 (0.0-1.0) mg/dL AST 25 (5-31) U/L ALT 26 (0-31) U/L Alkaline Phosphatase 102 (39-117) U/L Total Protein 7.0 (6.5-8.0) g/dL Albumin 3.7 (3.5-5.0) g/dL TSH 0.68 (0.32-4.0) uIU/mL Urine Color Urine Appearance Urine pH (5.0-9.0) Ur Specific [place] (1.005-1.025) Urine Protein (Neg-Trace) mg/dL Urine Glucose (UA) (Negative) mg/dL Urine Ketones (Negative) mg/dL Urine Blood (Negative) Urine Nitrite (Negative) Ur Leukocyte Esterase (Negative) Urine RBC (0-2) /HPF Urine WBC (0-5) /HPF Ur Squamous Epith Cells (0-2) /HPF Urine Bacteria (None Seen) Hyaline Casts (0-2) /LPF Urine Opiates Screen Not Detected (Not Detect) Urine Fentanyl Screen Not Detected (Not Detect) Ur Barbiturates Screen Not Detected (Not Detect) Ur Phencyclidine Scrn Not Detected (Not Detect) Ur Amphetamines Screen Not Detected (Not Detect) U Benzodiazepines Scrn Not Detected (Not Detect) Urine Cocaine Screen Not Detected (Not Detect) U Marijuana (THC) Screen Not Detected (Not Detect) Ethyl Alcohol mg/dL 11/11/22 11/11/22 Range/Units 22:27 22:27 WBC (4.8-10.8) X10*3/uL RBC (4.20-5.50) X10*6/uL Hgb (12.0-16.0) g/dl Hct (37.0-47.0) % MCV (80.0-98.0) fL MCH (27.0-33.0) pg MCHC (31.0-35.0) g/dl RDW (11.0-16.0) % Plt Count (160-400) X10*3/uL MPV (9.4-12.3) fL Immature Gran % (Auto) (0.0-0.4) % Neut % (Auto) (45-73) % Lymph % (Auto) (20-40) % [place] % (Auto) (2-11) % Eos % (Auto) (0-4) % Baso % (Auto) (0-2) % Lymph # (Auto) (1.2-4.9) X10*3/uL [place] # (Auto) (0.1-1.2) X10*3/uL Eos # (Auto) (0.0-0.4) X10*3/uL Baso # (Auto) (0.0-0.2) X10*3/uL Abs Immat Gran (auto) (0.00-0.03) X10*3/uL Absolute Neuts (auto) (2.0-8.3) x10*3/uL Absolute Nucleated RBC (0.0-0.012) X10*3/uL Nucleated RBC % (auto) (0.0-0.2) /100WBC Sodium (135-145) mmol/L Potassium (3.3-5.1) mmol/L Chloride (96-108) mmol/L Carbon Dioxide (22-29) mmol/L Anion Gap (12-20) BUN (9-16) mg/dL Creatinine (0.5-1.4) mg/dL Estim Creat Clear Calc Estimated GFR Random Glucose (60-115) mg/dL Calcium (8.4-10.2) mg/dL Magnesium (1.6-2.6) mg/dL Total Bilirubin (0.0-1.0) mg/dL AST (5-31) U/L ALT (0-31) U/L Alkaline Phosphatase (39-117) U/L Total Protein (6.5-8.0) g/dL Albumin (3.5-5.0) g/dL TSH (0.32-4.0) uIU/mL Urine Color Yellow Urine Appearance Cloudy Urine pH 7.0 (5.0-9.0) Ur Specific [place] 1.020 (1.005-1.025) Urine Protein Negative (Neg-Trace) mg/dL Urine Glucose (UA) >=1000 H (Negative) mg/dL Urine Ketones Trace (Negative) mg/dL Urine Blood Negative (Negative) Urine Nitrite Positive H (Negative) Ur Leukocyte Esterase Negative (Negative) Urine RBC 0-2 (0-2) /HPF Urine WBC 6-10 H (0-5) /HPF Ur Squamous Epith Cells 0-2 (0-2) /HPF Urine Bacteria 4+ (None Seen) Hyaline Casts 0-2 (0-2) /LPF Urine Opiates Screen (Not Detect) Urine Fentanyl Screen (Not Detect) Ur Barbiturates Screen (Not Detect) Ur Phencyclidine Scrn (Not Detect) Ur Amphetamines Screen (Not Detect) U Benzodiazepines Scrn (Not Detect) Urine Cocaine Screen (Not Detect) U Marijuana (THC) Screen (Not Detect) Ethyl Alcohol < 10 mg/dL Discharge Plan Discharge Clinical Impression: Depression, Acute UTI (urinary tract infection) Patient Disposition: Still a Patient Prescriptions: No Action (DME) lancets [TRUEplus Lancets] 33 gauge misc See Rx Instructions .ROUTE .MEDSUPPLY Qty: 100 Rx Instructions: As directed test blood sugar 4 times a day (DME) lancets [TRUEplus Lancets] 33 gauge misc See Rx Instructions .ROUTE .MEDSUPPLY Qty: 120 11RF Rx Instructions: 4 times a day atorvastatin 20 mg tablet 20 mg PO BEDTIME Qty: 30 11RF cholecalciferol (vitamin D3) 50 mcg (2,000 unit) capsule 50 mcg PO DAILY 30 Days Qty: 30 0RF (DME) FreeStyle Lite Strips Strip See Rx Instructions .ROUTE .MEDSUPPLY Qty: 150 11RF Rx Instructions: 4 times a day Lantus Solostar U-100 Insulin 100 unit/mL (3 mL) insulin pen 22 unit subcut QPM 30 Days Qty: 15 6RF (DME) pen needle, diabetic [BD Deedee 2nd Gen Pen Needle] 32 gauge x 5/32 needle See Rx Instructions .MEDSUPPLY Qty: 100 4RF Rx Instructions: 1 times a day Ozempic 1 mg/dose (4 mg/3 mL) pen injector 1 mg subcut QWEEK Qty: 3 4RF metformin 500 mg tablet extended release 24 hr 500 mg PO BID Qty: 60 0RF bisacodyl [Dulcolax (bisacodyl)] 5 mg tablet,delayed release (DR/EC) 10 mg PO ONCE 1 Days Qty: 2 0RF peg 3350-electrolytes [GaviLyte-G] 236-22.74-6.74 -5.86 gram recon soln 240 ml PO ONCE Qty: 4000 0RF Rx Instructions: until fecal effluent is clear citalopram 20 mg tablet 1 tab PO DAILY (DME) pen needle, diabetic 32 gauge x 5/32 needle See Rx Instructions subcut .MEDSUPPLY Qty: 50 Rx Instructions: As directed topiramate 50 mg tablet 50 mg PO BID clonazepam 0.5 mg tablet 0.5 mg PO DAILY PRN (Reason: Anxiety) Artificial Tears (jag/min) 83-15 % ointment 1 applic ophthalmic (eye) DAILY PRN (Reason: Dry Eye(S)) aspirin 81 mg tablet,delayed release (DR/EC) 81 mg PO DAILY albuterol sulfate 90 mcg/actuation HFA aerosol inhaler 2 inh inhalation Q4H PRN (Reason: Wheezing) simethicone 125 mg tablet,chewable 125 mg PO TID mirtazapine 7.5 mg tablet 7.5 mg PO BEDTIME lisinopril 20 mg tablet 20 mg PO DAILY cyclobenzaprine 5 mg tablet 5 mg PO TID Qty: 90 0RF gabapentin 100 mg capsule 100 mg PO TID gabapentin 300 mg capsule 300 mg PO TID Qty: 90 3RF
--- NOTE | 2022-11-12 01:04 | MHC.CARE ---
Pt is an inpatient bedsearch at this time
--- NOTE | 2022-11-12 01:10 | PC.NURSE ---
pt change lead to hospital attire, pt assisted to bedside commode, Medicated per mar, Will continue to monitor
[2022-11-12 01:14] VITALS: BP 156/75; PULSE 78; RESP 14; TEMP 36.6; O2SAT 99
[2022-11-12 01:37] LABS: Glucose, Whole Blood 245 mg/dL (60-115)
[2022-11-12] MEDS: Insulin Lispro 100 UNIT/ML 3 ML VIAL SUBCUT ×3 (01:59→20:43)
[2022-11-12 07:37] VITALS: BP 127/59; PULSE 70; RESP 12; TEMP 36.4; O2SAT 99
[2022-11-12 07:42] LABS: Glucose, Whole Blood 300 mg/dL (60-115)
[2022-11-12] MEDS: metFORMIN HCl ER 500 MG TAB.ER.24H PO ×2 (09:02→20:18)
[2022-11-12] MEDS: Aspirin Enteric Coated 81 MG TABLET.DR PO (09:02)
--- NOTE | 2022-11-12 09:05 | PC.NURSE ---
pt is alert and oriented, skin appropriate for ethnicity, respirations even and unlabored, pt reports right lower groin pain that radiates to her leg, pain at 10/10 pt denies si/hi
--- NOTE | 2022-11-12 09:13 | PHA.MEDREC ---
Pharmacy Consult ? Medication Reconciliation Pharmacy has completed the medication reconciliation. [facility] used. Med rec done by nursing previously had medications not even in claim history, clarified medications and dosing with patient. Snehal states that she takes mirtazapine, clonazepam, and gabapentin, and cyclobenzaprine sparingly because it scares her to be too sedated. She uses her Ozempic on Wednesdays. She also noted it has been a few days since she has taken anything
[2022-11-12] MEDS: Escitalopram Oxalate 10 MG TABLET PO (10:00)
[2022-11-12] MEDS: Topiramate 25 MG TABLET 50 MG PO (10:00)
[2022-11-12] MEDS: Cholecalciferol (Vitamin D3) 25 MCG TABLET 50 MCG PO (10:01)
[2022-11-12 10:20] LABS: COVID-19 Test Negative (Negative); IDNOW Serial# BCCEAD1C
--- NOTE | 2022-11-12 11:22 | ECG_ITS ---
Test Reason : REPEAT Blood Pressure : / mmHG Vent. Rate : 079 BPM Atrial Rate : 079 BPM P-R Int : 130 ms QRS Dur : 088 ms QT Int : 336 ms P-R-T Axes : 074 026 007 degrees QTc Int : 385 ms Normal sinus rhythm Nonspecific T wave abnormality Abnormal ECG When compared with ECG of 11-NOV-2022 20:51, No significant change was found Referred By: Mannie Francisco Electronically Signed By:ALBA POLLACK
[2022-11-12 13:32] VITALS: BP 149/72; PULSE 79; RESP 20; TEMP 36.5; O2SAT 99
[2022-11-12 14:00] VITALS: BP 133/75; PULSE 87; RESP 16; TEMP 36.9; O2SAT 97
--- NOTE | 2022-11-12 15:26 | PC.NURSE ---
report given to rn on s1 charla psych
[2022-11-12 16:30] VITALS: BP 157/80; PULSE 77; RESP 18; TEMP 36.5; O2SAT 100
[2022-11-12 17:15] LABS: Glucose, Whole Blood 336 mg/dL (60-115)
[2022-11-12 17:47] VITALS: BMI 34.8
[2022-11-12 18:33] LABS: Glucose, Whole Blood 310 mg/dL (60-115)
[2022-11-12 20:03] LABS: Glucose, Whole Blood 322 mg/dL (60-115)
[2022-11-12 20:09] VITALS: BP 123/69; PULSE 85; RESP 18; TEMP 36.2; O2SAT 96
[2022-11-12] MEDS: Atorvastatin Calcium 20 MG TABLET PO (20:18)
[2022-11-12] MEDS: Insulin Glargine,Hum.rec.anlog 100 UNIT/ML 10 ML VIAL 22 UNIT SUBCUT (20:18)
[2022-11-12] MEDS: clonazePAM 0.5 MG TABLET PO (20:26)
[2022-11-13] MEDS: hydrOXYzine HCL 25 MG TABLET PO (00:08)
--- NOTE | 2022-11-13 01:17 | PC.NURSE ---
pt c/o I can't sleep d/t roommate's snoring, given Hydroxyzine 25 mg. still can't sleep walking to the dinning table and sensory room back and forth. pt' left arm folding and holding. this nurse asked her to ROM, she can't do ROM to 360 degree, she lift her left arm only 15 degree. too much pain she said. she walks very small steps, sounds like a dragging her left foot or sweeping the floor.
[2022-11-13] MEDS: Acetaminophen 325 MG TABLET 650 MG PO ×2 (04:40→18:38)
[2022-11-13] MEDS: Cyclobenzaprine HCl 5 MG TABLET PO (04:41)
[2022-11-13 06:00] VITALS: BP 147/66; PULSE 93; RESP 18; TEMP 36.3; O2SAT 93
[2022-11-13 07:00] VITALS: BMI 34.6
--- NOTE | 2022-11-13 07:11 | PC.NURSE ---
pt wakes up around 06:00 given med and walk to the BR, and back to chair, I offered her changing the cloth, she was told me to snapping the button, I tried to help but she was yelling and screaming I meant unbutton it I offered to help she yells again for she can do herself, I walked out and watched her what she's doing until pull up changed. I walked to dinning table to check with roommate. pt fall around 07:00, VSs are T. 97.3, HR. 93, RR 18, BP. 147/66, CC notified and CC notified to doctor. no viable injury, she follow all command.
[2022-11-13 07:55] LABS: Glucose, Whole Blood 320 mg/dL (60-115)
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
[2022-11-13 08:26] LABS: Estimated Average Glucose 278 mg/dL; Hemoglobin A1c % 11.3 %
[2022-11-13 08:27] LABS: Alanine Aminotransferase 23 U/L (0-31); Albumin Level 3.9 g/dL (3.5-5.0); Alkaline Phosphatase 75 U/L (39-117); Anion Gap 12 (12-20); Aspartate Amino Transferase 19 U/L (5-31); Bilirubin Total 0.6 mg/dL (0.0-1.0); Blood Urea Nitrogen 20 mg/dL (9-16); Calcium 9.6 mg/dL (8.4-10.2); Carbon Dioxide 26 mmol/L (22-29); Chloride 104 mmol/L (96-108); Cholesterol 149 mg/dL; Creatinine Clr Calc Pharmacy 50.3; Estimated Glomerular Filt Rate 49; Glucose Fasting 346 mg/dL (60-99); HDL Cholesterol 58 mg/dL; LDL Cholesterol Calculated 79 mg/dl; Potassium 4.8 mmol/L (3.3-5.1); Sodium 137 mmol/L (135-145); Total Protein 7.3 g/dL (6.5-8.0); Triglycerides 61 mg/dL
[2022-11-13 08:48] LABS: Thyroid Stimulating Hormone 2.07 uIU/mL (0.32-4.0); Vitamin B12 772 pg/mL (200-900)
[2022-11-13] MEDS: Insulin Lispro 100 UNIT/ML 3 ML VIAL SUBCUT ×4 (10:04→20:35)
[2022-11-13] MEDS: Topiramate 25 MG TABLET 50 MG PO ×2 (10:06→20:33)
[2022-11-13] MEDS: Aspirin Enteric Coated 81 MG TABLET.DR PO (10:06)
[2022-11-13] MEDS: Escitalopram Oxalate 10 MG TABLET PO (10:06)
[2022-11-13] MEDS: Cholecalciferol (Vitamin D3) 25 MCG TABLET 50 MCG PO (10:06)
[2022-11-13] MEDS: metFORMIN HCl ER 500 MG TAB.ER.24H PO ×2 (10:06→20:32)
[2022-11-13 10:56] LABS: Glucose, Whole Blood 386 mg/dL (60-115)
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
[2022-11-13 18:00] VITALS: BP 129/66; PULSE 79; RESP 18; TEMP 36.4; O2SAT 97
[2022-11-13 20:24] LABS: Glucose, Whole Blood 241 mg/dL (60-115)
[2022-11-13] MEDS: Atorvastatin Calcium 20 MG TABLET PO (20:31)
[2022-11-13] MEDS: Insulin Glargine,Hum.rec.anlog 100 UNIT/ML 10 ML VIAL 22 UNIT SUBCUT (20:34)
[2022-11-13] MEDS: OLANZapine 2.5 MG TABLET PO (20:34)
[2022-11-13] MEDS: clonazePAM 0.5 MG TABLET PO (20:35)
[2022-11-13] MEDS: Gabapentin 300 MG CAPSULE PO (22:07)
[2022-11-14 08:00] VITALS: BP 116/59; PULSE 89; RESP 18; TEMP 35.9; O2SAT 98
[2022-11-14 08:22] LABS: Glucose, Whole Blood 298 mg/dL (60-115)
[2022-11-14] MEDS: Insulin Lispro 100 UNIT/ML 3 ML VIAL SUBCUT ×4 (08:55→21:29)
[2022-11-14] MEDS: metFORMIN HCl ER 500 MG TAB.ER.24H PO ×2 (08:56→20:38)
[2022-11-14] MEDS: Topiramate 25 MG TABLET 50 MG PO ×2 (08:57→20:39)
[2022-11-14] MEDS: Escitalopram Oxalate 10 MG TABLET PO (08:57)
[2022-11-14] MEDS: Cholecalciferol (Vitamin D3) 25 MCG TABLET 50 MCG PO (08:57)
[2022-11-14] MEDS: Aspirin Enteric Coated 81 MG TABLET.DR PO (08:58)
[2022-11-14 11:50] LABS: Glucose, Whole Blood 364 mg/dL (60-115)
--- NOTE | 2022-11-14 13:35 | PC.NURSE ---
Pt BS was 364, made aware, insulin given per protocol, no further instructions given.
--- NOTE | 2022-11-14 14:54 | P.PNPSI_ITS ---
Subjective Subjective Date of Service: 11/14/22 Reason For Visit: SI Subjective Notes: Conditional Voluntary Interim History: The nursing staff reported patient shower last night, a point of care an insulin were not so high. The clinical social worker reported that cc staff has contacted her and apparently she usually minimized her symptoms. She follows treatment at a local clinic. On interview the patient reports that she slept well last night, no evidence of side effects of over-sedation with olanzapine. She looks confused at times Mental Status Exam Mental Status Exam Patient Appearance: Well Grooomed and Appropriate Patient Orientation: Person and Situation Level of Consciousness: Awake and Appropriate Patient Behavior: Guarded and Passive Mood Description: Withdrawn Affect Description: Constricted Patient Cognition Impaired: Yes Ability to Follow Directions: Good Speech Pattern: Clear Hallucinations: None Delusions: Paranoid Ideation Thought Process: Distracted Thought Content: positive for [place] and positive for Circumstantial Judgement: Fair Diagnostics Vital Signs (24Hr): Vital Signs - 24 hr 11/13/22 18:00 11/14/22 08:00 Temperature 97.6 F 96.7 F L Pulse Rate 79 89 Respiratory Rate 18 18 Blood Pressure 129/66 116/59 L Pulse Oximetry 97 98 Oxygen Delivery Method Room Air Room Air BMI result Body Mass Index 34.6 Labs 11/11/22 20:55 11/13/22 07:54 Labs: Laboratory Results - last 48 hr 11/12/22 11/12/22 11/12/22 17:11 18:28 19:59 Sodium Potassium Chloride Carbon Dioxide Anion Gap BUN Creatinine Estim Creat Clear Calc Estimated GFR POC Glucose 336 H 310 H 322 H Fasting Glucose Estimat Average Glucose Hemoglobin A1c % Calcium Total Bilirubin AST ALT Alkaline Phosphatase Total Protein Albumin Triglycerides Cholesterol LDL Cholesterol, Calc HDL Cholesterol Vitamin B12 TSH 11/13/22 11/13/22 11/13/22 07:48 07:54 07:54 Sodium 137 Potassium 4.8 Chloride 104 Carbon Dioxide 26 Anion Gap 12 BUN 20 H Creatinine 1.10 Estim Creat Clear Calc 50.3 Estimated GFR 49 POC Glucose 320 H Fasting Glucose 346 H Estimat Average Glucose 278 Hemoglobin A1c % 11.3 Calcium 9.6 Total Bilirubin 0.6 AST 19 ALT 23 Alkaline Phosphatase 75 Total Protein 7.3 Albumin 3.9 Triglycerides 61 Cholesterol 149 LDL Cholesterol, Calc 79 HDL Cholesterol 58 Vitamin B12 772 TSH 2.07 11/13/22 11/13/22 11/14/22 10:49 20:19 08:15 Sodium Potassium Chloride Carbon Dioxide Anion Gap BUN Creatinine Estim Creat Clear Calc Estimated GFR POC Glucose 386 H* 241 H 298 H Fasting Glucose Estimat Average Glucose Hemoglobin A1c % Calcium Total Bilirubin AST ALT Alkaline Phosphatase Total Protein Albumin Triglycerides Cholesterol LDL Cholesterol, Calc HDL Cholesterol Vitamin B12 TSH 11/14/22 11:43 Sodium Potassium Chloride Carbon Dioxide Anion Gap BUN Creatinine Estim Creat Clear Calc Estimated GFR POC Glucose 364 H* Fasting Glucose Estimat Average Glucose Hemoglobin A1c % Calcium Total Bilirubin AST ALT Alkaline Phosphatase Total Protein Albumin Triglycerides Cholesterol LDL Cholesterol, Calc HDL Cholesterol Vitamin B12 TSH Medications Medications Current Medications Acetaminophen (Acetaminophen 325 Mg Tablet) 650 mg PO Q6H PRN PRN Reason: Headache/Pain Mild Scale (1-3) Last Admin: 11/13/22 18:38 Dose: 650 mg Al Hydroxide/Mg Hydroxide (Magnesium Hydrox/Alum Hydrox 30 Ml Oral.Susp) 30 ml PO Q6H PRN PRN Reason: Heartburn/Nausea Albuterol Sulfate (Albuterol Sulfate 90 Mcg 8 Gm Inhaler) 2 puff INHALE Q4H PRN PRN Reason: Wheezing Aspirin (Aspirin Enteric Coated 81 Mg Tablet.Dr) 81 mg PO DAILY COUNTS INCLUDE 234 BEDS AT THE [facility] Last Admin: 11/14/22 08:58 Dose: 81 mg Atorvastatin Calcium (Atorvastatin Calcium 20 Mg Tablet) 20 mg PO BEDTIME COUNTS INCLUDE 234 BEDS AT THE [facility] Last Admin: 11/13/22 20:31 Dose: 20 mg Cefuroxime Axetil (Cefuroxime Axetil 250 Mg Tablet) 250 mg PO BID COUNTS INCLUDE 234 BEDS AT THE [facility] Stop: 11/16/22 21:00 Last Admin: 11/14/22 08:58 Dose: 250 mg Clonazepam (Clonazepam 0.5 Mg Tablet) 0.5 mg PO DAILY PRN PRN Reason: Anxiety Last Admin: 11/13/22 20:35 Dose: 0.5 mg Cyclobenzaprine HCl (Cyclobenzaprine Hcl 5 Mg Tablet) 5 mg PO TID PRN PRN Reason: spasms Last Admin: 11/13/22 04:41 Dose: 5 mg Escitalopram Oxalate (Escitalopram Oxalate 10 Mg Tablet) 10 mg PO DAILY COUNTS INCLUDE 234 BEDS AT THE [facility] Last Admin: 11/14/22 08:57 Dose: 10 mg Gabapentin (Gabapentin 300 Mg Capsule) 300 mg PO TID PRN PRN Reason: pain Last Admin: 11/13/22 22:07 Dose: 300 mg Hydroxyzine HCl (Hydroxyzine Hcl 25 Mg Tablet) 25 mg PO Q6H PRN PRN Reason: Anxiety Last Admin: 11/13/22 00:08 Dose: 25 mg Insulin Glargine (Insulin Glargine,Hum.Rec.Anlog 100 Unit/Ml 10 Ml Vial) 22 unit SUBCUT BEDTIME COUNTS INCLUDE 234 BEDS AT THE [facility] Last Admin: 11/13/22 20:34 Dose: 22 unit Insulin Human Lispro (Insulin Lispro 100 Unit/Ml 3 Ml Vial) 0 unit SUBCUT QIDACHS COUNTS INCLUDE 234 BEDS AT THE [facility]; Protocol Last Admin: 11/14/22 11:50 Dose: 10 unit Magnesium Hydroxide (Milk Of Magnesia 30 Ml Oral.Susp) 30 ml PO DAILY PRN PRN Reason: Constipation Metformin HCl (Metformin Hcl Er 500 Mg Tab.Er.24h) 500 mg PO BID COUNTS INCLUDE 234 BEDS AT THE [facility] Last Admin: 11/14/22 08:56 Dose: 500 mg Mirtazapine (Mirtazapine 7.5 Mg Tablet) 7.5 mg PO BEDTIME PRN PRN Reason: sleep Multi-Ingred Cream/Lotion/Oil/Oint (Artificial Tears Ophth Oint 3.5 Gm Tube) 1 appl EYE-BOTH DAILY PRN; Protocol PRN Reason: Dry Eye(S) Olanzapine (Olanzapine 2.5 Mg Tablet) 2.5 mg PO BEDTIME COUNTS INCLUDE 234 BEDS AT THE [facility] Last Admin: 11/13/22 20:34 Dose: 2.5 mg Simethicone (Simethicone 80 Mg Tab.Chew) 80 mg PO TID PRN PRN Reason: gas Topiramate (Topiramate 25 Mg Tablet) 50 mg PO BID COUNTS INCLUDE 234 BEDS AT THE [facility] Last Admin: 11/14/22 08:57 Dose: 50 mg Trazodone HCl (Trazodone Hcl 50 Mg Tablet) 50 mg PO BEDTIME MRX1 PRN PRN Reason: Insomnia Vitamin D (Cholecalciferol (Vitamin D3) 25 Mcg Tablet) 50 mcg PO DAILY COUNTS INCLUDE 234 BEDS AT THE [facility] Last Admin: 11/14/22 08:57 Dose: 50 mcg Allergies Allergies Allergy/AdvReac Type Severity Reaction Status Date / Time COVID-19 vacc, bv (Orig, Allergy Severe Swelling Unverified 09/30/22 16:08 Omicron BA.4/5) (Pfizer) [From Pfizer COVID Bival(12y up)(PF)] homosalate [From Coppertone] Allergy Intermediate RASH, itchy Verified 09/30/22 15:10 octinoxate [From Coppertone] Allergy Intermediate RASH, itchy Verified 09/30/22 15:10 oxybenzone [From Coppertone] Allergy Intermediate RASH, itchy Verified 09/30/22 15:10 diovan Allergy Unknown rash Uncoded 09/30/22 15:10 Assessment & Plan Assessment & Plan (1) Major depressive disorder: Status: Acute Code(s): F32.9 - Major depressive disorder, single episode, unspecified Plan Elderly Nepali female with a long history of major depressive disorder treated in the community with [facility], admitted for exacerbation of depression with neurovegetative symptoms in the context of losses. She also presented with psychotic symptoms elicited by paranoia, auditory hallucinations and racing thoughts. She complained of passive suicidal ideation but she was able to contract for safety in the facility. Plan 1. Gather collateral information. 2. Start Lexapro 10 mg p.o. q.a.m.. 3. Start a very low dose of olanzapine 2.5 mg p.o. q.h.s. to target auditory hallucinations, paranoia and racing thoughts at night. 4. Continue medical workout. Reason for continued inpatient stay Substantial Risk for: inability to function, rapid decompensation and med/psych decompensation Time Spent With Patient Time: Total time managing care of this patient today __20__ minutes.
[2022-11-14 18:00] VITALS: BP 136/61; PULSE 85; RESP 18; TEMP 36.3; O2SAT 99
[2022-11-14 19:02] LABS: Glucose, Whole Blood 358 mg/dL (60-115)
[2022-11-14] MEDS: OLANZapine 2.5 MG TABLET PO (20:39)
[2022-11-14] MEDS: Atorvastatin Calcium 20 MG TABLET PO (20:39)
[2022-11-14] MEDS: Insulin Glargine,Hum.rec.anlog 100 UNIT/ML 10 ML VIAL 22 UNIT SUBCUT (20:42)
[2022-11-14 20:53] LABS: Glucose, Whole Blood 326 mg/dL (60-115)
[2022-11-14] MEDS: clonazePAM 0.5 MG TABLET PO (21:12)
[2022-11-14] MEDS: traZODone HCL 50 MG TABLET PO (23:37)
[2022-11-15] MEDS: Acetaminophen 325 MG TABLET 650 MG PO (06:55)
[2022-11-15 07:45] LABS: Glucose, Whole Blood 249 mg/dL (60-115)
[2022-11-15 08:00] VITALS: BP 112/56; PULSE 87; RESP 18; TEMP 36.8; O2SAT 95
[2022-11-15] MEDS: Aspirin Enteric Coated 81 MG TABLET.DR PO (08:19)
[2022-11-15] MEDS: Cholecalciferol (Vitamin D3) 25 MCG TABLET 50 MCG PO (08:20)
[2022-11-15] MEDS: Insulin Lispro 100 UNIT/ML 3 ML VIAL SUBCUT ×4 (08:20→20:55)
[2022-11-15] MEDS: metFORMIN HCl ER 500 MG TAB.ER.24H PO ×2 (08:20→20:53)
[2022-11-15] MEDS: Topiramate 25 MG TABLET 50 MG PO ×2 (08:20→20:53)
[2022-11-15] MEDS: Escitalopram Oxalate 10 MG TABLET PO (08:20)
[2022-11-15 11:30] LABS: Glucose, Whole Blood 328 mg/dL (60-115)
--- NOTE | 2022-11-15 12:27 | HO.PSYCHPN ---
Subjective Subjective Date of Service: 11/15/22 Reason For Visit: SI Subjective Notes: Conditional Voluntary Healthcare Proxy: No Guardianship: No Medical Problems Affecting Mental Status: Yes Interim History: Nursing reports patient has been trhough rough time- with loss of 2 adult children recent year and then covid with frozen arm- consequence- Pt denies any problems currently feeling medication is helping with no side effects, denies current si Medication Compliance: Yes Side effects from medications: No Attending Groups: Yes Review of Systems Acute medical concerns: No Medical Review of Systems: unchanged Mental Status Exam Mental Status Exam Patient Appearance: Disheveled (mildly) Patient Orientation: Person and Place Level of Consciousness: Awake Patient Behavior: Appropriate Mood Description: Calm Affect Description: Calm Ability to Follow Directions: Fair Speech Pattern: Impoverished Thought Process: Intact and Goal Oriented Thought Content: positive for [place] Judgement: Fair Diagnostics Vital Signs (24Hr): Vital Signs - 24 hr 11/14/22 18:00 11/15/22 08:00 Temperature 97.3 F 98.2 F Pulse Rate 85 87 Respiratory Rate 18 18 Blood Pressure 136/61 112/56 L Pulse Oximetry 99 95 Oxygen Delivery Method Room Air Room Air BMI result Body Mass Index 34.6 Labs 11/11/22 20:55 11/13/22 07:54 Labs: Laboratory Results - last 48 hr 11/13/22 11/14/22 11/14/22 20:19 08:15 11:43 POC Glucose 241 H 298 H 364 H* 11/14/22 11/14/22 11/15/22 18:56 20:47 07:40 POC Glucose 358 H* 326 H 249 H 11/15/22 11:26 POC Glucose 328 H Medications Medications Current Medications Acetaminophen (Acetaminophen 325 Mg Tablet) 650 mg PO Q6H PRN PRN Reason: Headache/Pain Mild Scale (1-3) Last Admin: 11/15/22 06:55 Dose: 650 mg Al Hydroxide/Mg Hydroxide (Magnesium Hydrox/Alum Hydrox 30 Ml Oral.Susp) 30 ml PO Q6H PRN PRN Reason: Heartburn/Nausea Albuterol Sulfate (Albuterol Sulfate 90 Mcg 8 Gm Inhaler) 2 puff INHALE Q4H PRN PRN Reason: Wheezing Aspirin (Aspirin Enteric Coated 81 Mg Tablet.) 81 mg PO DAILY DIANA Last Admin: 11/15/22 08:19 Dose: 81 mg Atorvastatin Calcium (Atorvastatin Calcium 20 Mg Tablet) 20 mg PO BEDTIME [facility] Last Admin: 11/14/22 20:39 Dose: 20 mg Cefuroxime Axetil (Cefuroxime Axetil 250 Mg Tablet) 250 mg PO BID DIANA Stop: 11/16/22 21:00 Last Admin: 11/15/22 08:20 Dose: 250 mg Clonazepam (Clonazepam 0.5 Mg Tablet) 0.5 mg PO DAILY PRN PRN Reason: Anxiety Last Admin: 11/14/22 21:12 Dose: 0.5 mg Cyclobenzaprine HCl (Cyclobenzaprine Hcl 5 Mg Tablet) 5 mg PO TID PRN PRN Reason: spasms Last Admin: 11/13/22 04:41 Dose: 5 mg Escitalopram Oxalate (Escitalopram Oxalate 10 Mg Tablet) 10 mg PO DAILY [facility] Last Admin: 11/15/22 08:20 Dose: 10 mg Gabapentin (Gabapentin 300 Mg Capsule) 300 mg PO TID PRN PRN Reason: pain Last Admin: 11/13/22 22:07 Dose: 300 mg Hydroxyzine HCl (Hydroxyzine Hcl 25 Mg Tablet) 25 mg PO Q6H PRN PRN Reason: Anxiety Last Admin: 11/13/22 00:08 Dose: 25 mg Insulin Glargine (Insulin Glargine,Hum.Rec.Anlog 100 Unit/Ml 10 Ml Vial) 22 unit SUBCUT BEDTIME [facility] Last Admin: 11/14/22 20:42 Dose: 22 unit Insulin Human Lispro (Insulin Lispro 100 Unit/Ml 3 Ml Vial) 0 unit SUBCUT QIDACHS [facility]; Protocol Last Admin: 11/15/22 11:44 Dose: 8 unit Magnesium Hydroxide (Milk Of Magnesia 30 Ml Oral.Susp) 30 ml PO DAILY PRN PRN Reason: Constipation Metformin HCl (Metformin Hcl Er 500 Mg Tab.Er.24h) 500 mg PO BID [facility] Last Admin: 11/15/22 08:20 Dose: 500 mg Mirtazapine (Mirtazapine 7.5 Mg Tablet) 7.5 mg PO BEDTIME PRN PRN Reason: sleep Multi-Ingred Cream/Lotion/Oil/Oint (Artificial Tears Ophth Oint 3.5 Gm Tube) 1 appl EYE-BOTH DAILY PRN; Protocol PRN Reason: Dry Eye(S) Olanzapine (Olanzapine 2.5 Mg Tablet) 2.5 mg PO BEDTIME [facility] Last Admin: 11/14/22 20:39 Dose: 2.5 mg Simethicone (Simethicone 80 Mg Tab.Chew) 80 mg PO TID PRN PRN Reason: gas Topiramate (Topiramate 25 Mg Tablet) 50 mg PO BID [facility] Last Admin: 11/15/22 08:20 Dose: 50 mg Trazodone HCl (Trazodone Hcl 50 Mg Tablet) 50 mg PO BEDTIME MRX1 PRN PRN Reason: Insomnia Last Admin: 11/14/22 23:37 Dose: 50 mg Vitamin D (Cholecalciferol (Vitamin D3) 25 Mcg Tablet) 50 mcg PO DAILY [facility] Last Admin: 11/15/22 08:20 Dose: 50 mcg Allergies Allergies Allergy/AdvReac Type Severity Reaction Status Date / Time COVID-19 vacc, bv (Orig, Allergy Severe Swelling Unverified 09/30/22 16:08 Omicron BA.4/5) (Pfizer) [From Pfizer COVID Bival(12y up)(PF)] homosalate [From Coppertone] Allergy Intermediate RASH, itchy Verified 09/30/22 15:10 octinoxate [From Coppertone] Allergy Intermediate RASH, itchy Verified 09/30/22 15:10 oxybenzone [From Coppertone] Allergy Intermediate RASH, itchy Verified 09/30/22 15:10 diovan Allergy Unknown rash Uncoded 09/30/22 15:10 Assessment & Plan Assessment & Plan (1) Major depressive disorder: Status: Acute Code(s): F32.9 - Major depressive disorder, single episode, unspecified Plan Elderly [place] female with a long history of major depressive disorder treated in the community with Meño, admitted for exacerbation of depression with neurovegetative symptoms in the context of losses. She also presented with psychotic symptoms elicited by paranoia, auditory hallucinations and racing thoughts. She complained of passive suicidal ideation but she was able to contract for safety in the facility. Plan 1. Gather collateral information. 2. Start Lexapro 10 mg p.o. q.a.m.. 3. Start a very low dose of olanzapine 2.5 mg p.o. q.h.s. to target auditory hallucinations, paranoia and racing thoughts at night. 4. Continue medical workout. Patient educated on: medication risk/benefits Informed Consent: understands Reason for continued inpatient stay Substantial Risk for: rapid decompensation Time Spent With Patient Time: Total time managing care of this patient today ____ minutes.
[2022-11-15 16:32] LABS: Glucose, Whole Blood 328 mg/dL (60-115)
[2022-11-15 18:00] VITALS: BP 123/61; PULSE 84; RESP 16; TEMP 36.4; O2SAT 96
[2022-11-15 20:25] LABS: Glucose, Whole Blood 344 mg/dL (60-115)
[2022-11-15] MEDS: OLANZapine 2.5 MG TABLET PO (20:53)
[2022-11-15] MEDS: Atorvastatin Calcium 20 MG TABLET PO (20:53)
[2022-11-15] MEDS: Insulin Glargine,Hum.rec.anlog 100 UNIT/ML 10 ML VIAL 22 UNIT SUBCUT (20:53)
[2022-11-15] MEDS: traZODone HCL 50 MG TABLET PO (21:55)
[2022-11-16 07:50] LABS: Glucose, Whole Blood 231 mg/dL (60-115)
[2022-11-16 07:55] VITALS: BP 133/60; PULSE 98; RESP 17; TEMP 36; O2SAT 99
[2022-11-16] MEDS: Insulin Lispro 100 UNIT/ML 3 ML VIAL SUBCUT ×4 (08:06→21:14)
[2022-11-16] MEDS: Escitalopram Oxalate 10 MG TABLET PO (08:06)
[2022-11-16] MEDS: Topiramate 25 MG TABLET 50 MG PO ×2 (08:06→19:55)
[2022-11-16] MEDS: metFORMIN HCl ER 500 MG TAB.ER.24H PO ×2 (08:07→19:55)
[2022-11-16] MEDS: Cholecalciferol (Vitamin D3) 25 MCG TABLET 50 MCG PO (08:07)
[2022-11-16] MEDS: Aspirin Enteric Coated 81 MG TABLET.DR PO (08:07)
--- NOTE | 2022-11-16 10:44 | P.PNPSI_ITS ---
Subjective Subjective Date of Service: 11/16/22 Reason For Visit: SI Subjective Notes: Conditional Voluntary Healthcare Proxy: No Guardianship: No Medical Problems Affecting Mental Status: No Interim History: Pt reports doing much better, describes incident that brought her to [facility] and how she is able to feel differently now- not as consumed by her grief over loss of 2 Adult children- and covid- Feels medications have helped and denying any side effects Medication Compliance: Yes Side effects from medications: No Attending Groups: Yes Review of Systems Acute medical concerns: No Medical Review of Systems: unchanged Mental Status Exam Mental Status Exam Patient Appearance: Appropriate Patient Orientation: Person, Place and Situation Level of Consciousness: Awake Patient Behavior: Appropriate Mood Description: Calm Affect Description: Calm Patient Cognition Impaired: No Ability to Follow Directions: Good Speech Pattern: Clear Hallucinations: None Thought Process: Intact and Goal Oriented Thought Content: positive for Intact Judgement: Fair Diagnostics Vital Signs (24Hr): Vital Signs - 24 hr 11/15/22 18:00 11/16/22 07:55 Temperature 97.5 F 96.8 F Pulse Rate 84 98 Respiratory Rate 16 17 Blood Pressure 123/61 133/60 Pulse Oximetry 96 99 Oxygen Delivery Method Room Air Room Air BMI result Body Mass Index 34.6 Labs 11/11/22 20:55 11/13/22 07:54 Labs: Laboratory Results - last 48 hr 11/14/22 11/14/22 11/14/22 11:43 18:56 20:47 POC Glucose 364 H* 358 H* 326 H 11/15/22 11/15/22 11/15/22 07:40 11:26 16:29 POC Glucose 249 H 328 H 328 H 11/15/22 11/16/22 20:18 07:46 POC Glucose 344 H 231 H Medications Medications Current Medications Acetaminophen (Acetaminophen 325 Mg Tablet) 650 mg PO Q6H PRN PRN Reason: Headache/Pain Mild Scale (1-3) Last Admin: 11/15/22 06:55 Dose: 650 mg Al Hydroxide/Mg Hydroxide (Magnesium Hydrox/Alum Hydrox 30 Ml Oral.Susp) 30 ml PO Q6H PRN PRN Reason: Heartburn/Nausea Albuterol Sulfate (Albuterol Sulfate 90 Mcg 8 Gm Inhaler) 2 puff INHALE Q4H PRN PRN Reason: Wheezing Aspirin (Aspirin Enteric Coated 81 Mg Tablet.Dr) 81 mg PO DAILY [facility] Last Admin: 11/16/22 08:07 Dose: 81 mg Atorvastatin Calcium (Atorvastatin Calcium 20 Mg Tablet) 20 mg PO BEDTIME [facility] Last Admin: 11/15/22 20:53 Dose: 20 mg Cefuroxime Axetil (Cefuroxime Axetil 250 Mg Tablet) 250 mg PO BID [facility] Stop: 11/16/22 21:00 Last Admin: 11/16/22 08:06 Dose: 250 mg Clonazepam (Clonazepam 0.5 Mg Tablet) 0.5 mg PO DAILY PRN PRN Reason: Anxiety Last Admin: 11/14/22 21:12 Dose: 0.5 mg Cyclobenzaprine HCl (Cyclobenzaprine Hcl 5 Mg Tablet) 5 mg PO TID PRN PRN Reason: spasms Last Admin: 11/13/22 04:41 Dose: 5 mg Escitalopram Oxalate (Escitalopram Oxalate 10 Mg Tablet) 10 mg PO DAILY [facility] Last Admin: 11/16/22 08:06 Dose: 10 mg Gabapentin (Gabapentin 300 Mg Capsule) 300 mg PO TID PRN PRN Reason: pain Last Admin: 11/13/22 22:07 Dose: 300 mg Hydroxyzine HCl (Hydroxyzine Hcl 25 Mg Tablet) 25 mg PO Q6H PRN PRN Reason: Anxiety Last Admin: 11/13/22 00:08 Dose: 25 mg Insulin Glargine (Insulin Glargine,Hum.Rec.Anlog 100 Unit/Ml 10 Ml Vial) 22 unit SUBCUT BEDTIME [facility] Last Admin: 11/15/22 20:53 Dose: 22 unit Insulin Human Lispro (Insulin Lispro 100 Unit/Ml 3 Ml Vial) 0 unit SUBCUT QIDACHS [facility]; Protocol Last Admin: 11/16/22 08:06 Dose: 4 unit Magnesium Hydroxide (Milk Of Magnesia 30 Ml Oral.Susp) 30 ml PO DAILY PRN PRN Reason: Constipation Metformin HCl (Metformin Hcl Er 500 Mg Tab.Er.24h) 500 mg PO BID [facility] Last Admin: 11/16/22 08:07 Dose: 500 mg Mirtazapine (Mirtazapine 7.5 Mg Tablet) 7.5 mg PO BEDTIME PRN PRN Reason: sleep Multi-Ingred Cream/Lotion/Oil/Oint (Artificial Tears Ophth Oint 3.5 Gm Tube) 1 appl EYE-BOTH DAILY PRN; Protocol PRN Reason: Dry Eye(S) Olanzapine (Olanzapine 2.5 Mg Tablet) 2.5 mg PO BEDTIME [facility] Last Admin: 11/15/22 20:53 Dose: 2.5 mg Simethicone (Simethicone 80 Mg Tab.Chew) 80 mg PO TID PRN PRN Reason: gas Topiramate (Topiramate 25 Mg Tablet) 50 mg PO BID [facility] Last Admin: 11/16/22 08:06 Dose: 50 mg Trazodone HCl (Trazodone Hcl 50 Mg Tablet) 50 mg PO BEDTIME MRX1 PRN PRN Reason: Insomnia Last Admin: 11/15/22 21:55 Dose: 50 mg Vitamin D (Cholecalciferol (Vitamin D3) 25 Mcg Tablet) 50 mcg PO DAILY [facility] Last Admin: 11/16/22 08:07 Dose: 50 mcg Allergies Allergies Allergy/AdvReac Type Severity Reaction Status Date / Time COVID-19 vacc, bv (Orig, Allergy Severe Swelling Unverified 09/30/22 16:08 Omicron BA.4/5) (Pfizer) [From Pfizer COVID Bival(12y up)()] homosalate [From Coppertone] Allergy Intermediate RASH, itchy Verified 09/30/22 15:10 octinoxate [From Coppertone] Allergy Intermediate RASH, itchy Verified 09/30/22 15:10 oxybenzone [From Coppertone] Allergy Intermediate RASH, itchy Verified 09/30/22 15:10 diovan Allergy Unknown rash Uncoded 09/30/22 15:10 Assessment & Plan Assessment & Plan (1) Major depressive disorder: Status: Acute Code(s): F32.9 - Major depressive disorder, single episode, unspecified Plan Elderly [place] female with a long history of major depressive disorder treated in the community with Celexa, admitted for exacerbation of depression with neurovegetative symptoms in the context of losses. She also presented with psy chotic symptoms elicited by paranoia, auditory hallucinations and racing thoughts. She complained of passive suicidal ideation but she was able to contract for safety in the facility. Plan 1. Gather collateral information. 2. Start Lexapro 10 mg p.o. q.a.m.. 3. Start a very low dose of olanzapine 2.5 mg p.o. q.h.s. to target auditory hallucinations, paranoia and racing thoughts at night. 4. Continue medical workout. 11/16/22 seems much improved opening talking with staff , engaged in [facility] Patient educated on: medication risk/benefits and therapeutic strategies Informed Consent: understands Reason for continued inpatient stay Substantial Risk for: rapid decompensation Time Spent With Patient Time: Total time managing care of this patient today ____ minutes.
[2022-11-16 11:38] LABS: Glucose, Whole Blood 308 mg/dL (60-115)
[2022-11-16 16:23] LABS: Glucose, Whole Blood 177 mg/dL (60-115)
[2022-11-16 18:00] VITALS: BP 136/61; PULSE 89; RESP 18; TEMP 37; O2SAT 95
[2022-11-16] MEDS: OLANZapine 2.5 MG TABLET PO (19:55)
[2022-11-16] MEDS: Atorvastatin Calcium 20 MG TABLET PO (19:56)
[2022-11-16] MEDS: traZODone HCL 50 MG TABLET PO (20:05)
[2022-11-16 21:01] LABS: Glucose, Whole Blood 259 mg/dL (60-115)
[2022-11-16] MEDS: Insulin Glargine,Hum.rec.anlog 100 UNIT/ML 10 ML VIAL 22 UNIT SUBCUT (21:15)
[2022-11-17] MEDS: Acetaminophen 325 MG TABLET 650 MG PO (05:01)
[2022-11-17 07:47] LABS: Glucose, Whole Blood 248 mg/dL (60-115)
[2022-11-17 08:10] VITALS: BP 101/65; PULSE 88; RESP 16; TEMP 36.6; O2SAT 97
[2022-11-17] MEDS: Aspirin Enteric Coated 81 MG TABLET.DR PO (08:36)
[2022-11-17] MEDS: Cholecalciferol (Vitamin D3) 25 MCG TABLET 50 MCG PO (08:36)
[2022-11-17] MEDS: Topiramate 25 MG TABLET 50 MG PO ×2 (08:36→21:18)
[2022-11-17] MEDS: Insulin Lispro 100 UNIT/ML 3 ML VIAL SUBCUT ×5 (08:36→21:21)
[2022-11-17] MEDS: metFORMIN HCl ER 500 MG TAB.ER.24H PO ×2 (08:37→21:17)
[2022-11-17] MEDS: Escitalopram Oxalate 10 MG TABLET PO (08:37)
[2022-11-17 11:09] LABS: Glucose, Whole Blood 378 mg/dL (60-115)
--- NOTE | 2022-11-17 11:44 | PC.NURSE ---
BS at 11:15 am 378. 10 units of insulin Lispro given, provider notified
--- NOTE | 2022-11-17 14:40 | HO.PSYCHPN ---
Subjective Subjective Date of Service: 11/17/22 Reason For Visit: SI Subjective Notes: Conditional Voluntary Interim History: The nursing staff reported the patient had been depressed, most of the time in her room but no evidence of suicidal ideation. She slept 9 hours. On interview the patient denies active suicidal ideation and she wants to be discharged as soon as possible no over-sedation with Zyprexa. Mental Status Exam Mental Status Exam Patient Appearance: Well Grooomed and Appropriate Patient Orientation: Person and Situation Level of Consciousness: Awake and Appropriate Patient Behavior: Guarded and Passive Mood Description: Withdrawn Affect Description: Constricted Patient Cognition Impaired: Yes Ability to Follow Directions: Good Speech Pattern: Clear Hallucinations: None Delusions: Paranoid Ideation Thought Process: Distracted Thought Content: positive for Circumstantial Judgement: Fair Diagnostics Vital Signs (24Hr): Vital Signs - 24 hr 11/16/22 18:00 11/17/22 08:10 Temperature 98.6 F 97.8 F Pulse Rate 89 88 Respiratory Rate 18 16 Blood Pressure 136/61 101/65 Pulse Oximetry 95 97 Oxygen Delivery Method Room Air Room Air BMI result Body Mass Index 34.6 Labs 11/11/22 20:55 11/13/22 07:54 Labs: Laboratory Results - last 48 hr 11/15/22 11/15/22 11/16/22 16:29 20:18 07:46 POC Glucose 328 H 344 H 231 H 11/16/22 11/16/22 11/16/22 11:34 16:19 20:57 POC Glucose 308 H 177 H 259 H 11/17/22 11/17/22 07:43 11:04 POC Glucose 248 H 378 H* Medications Medications Current Medications Acetaminophen (Acetaminophen 325 Mg Tablet) 650 mg PO Q6H PRN PRN Reason: Headache/Pain Mild Scale (1-3) Last Admin: 11/17/22 05:01 Dose: 650 mg Al Hydroxide/Mg Hydroxide (Magnesium Hydrox/Alum Hydrox 30 Ml Oral.Susp) 30 ml PO Q6H PRN PRN Reason: Heartburn/Nausea Albuterol Sulfate (Albuterol Sulfate 90 Mcg 8 Gm Inhaler) 2 puff INHALE Q4H PRN PRN Reason: Wheezing Aspirin (Aspirin Enteric Coated 81 Mg Tablet.) 81 mg PO DAILY DIANA Last Admin: 11/17/22 08:36 Dose: 81 mg Atorvastatin Calcium (Atorvastatin Calcium 20 Mg Tablet) 20 mg PO BEDTIME [facility] Last Admin: 11/16/22 19:56 Dose: 20 mg Clonazepam (Clonazepam 0.5 Mg Tablet) 0.25 mg PO DAILY PRN PRN Reason: Anxiety Cyclobenzaprine HCl (Cyclobenzaprine Hcl 5 Mg Tablet) 5 mg PO TID PRN PRN Reason: spasms Last Admin: 11/13/22 04:41 Dose: 5 mg Escitalopram Oxalate (Escitalopram Oxalate 10 Mg Tablet) 10 mg PO DAILY [facility] Last Admin: 11/17/22 08:37 Dose: 10 mg Gabapentin (Gabapentin 300 Mg Capsule) 300 mg PO TID PRN PRN Reason: pain Last Admin: 11/13/22 22:07 Dose: 300 mg Hydroxyzine HCl (Hydroxyzine Hcl 25 Mg Tablet) 25 mg PO Q6H PRN PRN Reason: Anxiety Last Admin: 11/13/22 00:08 Dose: 25 mg Insulin Glargine (Insulin Glargine,Hum.Rec.Anlog 100 Unit/Ml 10 Ml Vial) 26 unit SUBCUT BEDTIME [facility] Insulin Human Lispro (Insulin Lispro 100 Unit/Ml 3 Ml Vial) 0 unit SUBCUT QIDACHS [facility]; Protocol Last Admin: 11/17/22 11:40 Dose: 10 unit Insulin Human Lispro (Insulin Lispro 100 Unit/Ml 3 Ml Vial) 5 unit SUBCUT QIDACHS [facility] Magnesium Hydroxide (Milk Of Magnesia 30 Ml Oral.Susp) 30 ml PO DAILY PRN PRN Reason: Constipation Metformin HCl (Metformin Hcl Er 500 Mg Tab.Er.24h) 500 mg PO BID [facility] Last Admin: 11/17/22 08:37 Dose: 500 mg Mirtazapine (Mirtazapine 7.5 Mg Tablet) 7.5 mg PO BEDTIME PRN PRN Reason: sleep Multi-Ingred Cream/Lotion/Oil/Oint (Artificial Tears Ophth Oint 3.5 Gm Tube) 1 appl EYE-BOTH DAILY PRN; Protocol PRN Reason: Dry Eye(S) Olanzapine (Olanzapine 2.5 Mg Tablet) 2.5 mg PO BEDTIME [facility] Last Admin: 11/16/22 19:55 Dose: 2.5 mg Simethicone (Simethicone 80 Mg Tab.Chew) 80 mg PO TID PRN PRN Reason: gas Topiramate (Topiramate 25 Mg Tablet) 50 mg PO BID [facility] Last Admin: 11/17/22 08:36 Dose: 50 mg Trazodone HCl (Trazodone Hcl 50 Mg Tablet) 50 mg PO BEDTIME MRX1 PRN PRN Reason: Insomnia Last Admin: 11/16/22 20:05 Dose: 50 mg Vitamin D (Cholecalciferol (Vitamin D3) 25 Mcg Tablet) 50 mcg PO DAILY [facility] Last Admin: 11/17/22 08:36 Dose: 50 mcg Allergies Allergies Allergy/AdvReac Type Severity Reaction Status Date / Time COVID-19 vacc, bv (Orig, Allergy Severe Swelling Unverified 09/30/22 16:08 Omicron BA.4/5) (Pfizer) [From Pfizer COVID Bival(12y up)()] homosalate [From Coppertone] Allergy Intermediate RASH, itchy Verified 09/30/22 15:10 octinoxate [From Coppertone] Allergy Intermediate RASH, itchy Verified 09/30/22 15:10 oxybenzone [From Coppertone] Allergy Intermediate RASH, itchy Verified 09/30/22 15:10 diovan Allergy Unknown rash Uncoded 09/30/22 15:10 Assessment & Plan Assessment & Plan (1) Major depressive disorder: Status: Acute Code(s): F32.9 - Major depressive disorder, single episode, unspecified Plan Elderly [place] female with a long history of major depressive disorder treated in the community with Meño, admitted for exacerbation of depression with neurovegetative symptoms in the context of losses. She also presented with psychotic symptoms elicited by paranoia, auditory hallucinations and racing thoughts. She complained of passive suicidal ideation but she was able to contract for safety in the facility. Plan 1. Gather collateral information. 2. Start Lexapro 10 mg p.o. q.a.m.. 3. Start a very low dose of olanzapine 2.5 mg p.o. q.h.s. to target auditory hallucinations, paranoia and racing thoughts at night. 4. Continue medical workout. 5. Start working on discharge planning condition on treatment in the community Reason for continued inpatient stay Substantial Risk for: inability to function, rapid decompensation and med/psych decompensation Time Spent With Patient Time: Total time managing care of this patient today _20___ minutes.
[2022-11-17 16:10] LABS: Glucose, Whole Blood 112 mg/dL (60-115)
[2022-11-17 20:00] VITALS: BP 124/63; PULSE 83; RESP 18; TEMP 36; O2SAT 98
[2022-11-17 21:06] LABS: Glucose, Whole Blood 273 mg/dL (60-115)
[2022-11-17] MEDS: Atorvastatin Calcium 20 MG TABLET PO (21:18)
[2022-11-17] MEDS: Insulin Glargine,Hum.rec.anlog 100 UNIT/ML 10 ML VIAL 26 UNIT SUBCUT (21:18)
[2022-11-17] MEDS: OLANZapine 2.5 MG TABLET PO (21:21)
[2022-11-17] MEDS: traZODone HCL 50 MG TABLET PO (21:31)
[2022-11-18 07:37] LABS: Glucose, Whole Blood 163 mg/dL (60-115)
[2022-11-18 08:30] VITALS: BP 109/57; PULSE 79; RESP 16; TEMP 36.6; O2SAT 96
[2022-11-18] MEDS: Insulin Lispro 100 UNIT/ML 3 ML VIAL SUBCUT ×8 (08:36→21:04)
[2022-11-18] MEDS: Aspirin Enteric Coated 81 MG TABLET.DR PO (08:37)
[2022-11-18] MEDS: metFORMIN HCl ER 500 MG TAB.ER.24H PO ×2 (08:37→20:58)
[2022-11-18] MEDS: Escitalopram Oxalate 10 MG TABLET PO (08:37)
[2022-11-18] MEDS: Topiramate 25 MG TABLET 50 MG PO ×2 (08:37→20:59)
[2022-11-18] MEDS: Cholecalciferol (Vitamin D3) 25 MCG TABLET 50 MCG PO (08:38)
[2022-11-18] MEDS: Acetaminophen 325 MG TABLET 650 MG PO (09:30)
[2022-11-18 11:12] LABS: Glucose, Whole Blood 287 mg/dL (60-115)
--- NOTE | 2022-11-18 12:00 | P.PNPSI_ITS ---
Subjective Subjective Date of Service: 11/18/22 Reason For Visit: SI Subjective Notes: Conditional Voluntary Interim History: The nursing staff reported the patient had been medication compliant, she complained of headaches a lot. She stated that she is doing okay. The licensed clinical social worker reported that the [facility] staff reported that the patient minimized her symptoms and stated that she has always okay. We will act [facility] services for med management. On interview the patient denies active suicidal ideation, we are discussing the possibility of discharge tomorrow. Mental Status Exam Mental Status Exam Patient Appearance: Appropriate Patient Orientation: Person and Situation Level of Consciousness: Awake and Appropriate Patient Behavior: Guarded and Passive Mood Description: Withdrawn Affect Description: Constricted Patient Cognition Impaired: Yes Ability to Follow Directions: Good Speech Pattern: Clear Hallucinations: None Delusions: Not Present Thought Process: Distracted Thought Content: positive for [place] Judgement: Fair Diagnostics Vital Signs (24Hr): Vital Signs - 24 hr 11/17/22 20:00 11/18/22 08:30 Temperature 96.8 F 97.9 F Pulse Rate 83 79 Respiratory Rate 18 16 Blood Pressure 124/63 109/57 L Pulse Oximetry 98 96 Oxygen Delivery Method Room Air Room Air BMI result Body Mass Index 34.6 Labs 11/11/22 20:55 11/13/22 07:54 Labs: Laboratory Results - last 48 hr 11/16/22 11/16/22 11/17/22 16:19 20:57 07:43 POC Glucose 177 H 259 H 248 H 11/17/22 11/17/22 11/17/22 11:04 16:02 20:59 POC Glucose 378 H* 112 273 H 11/18/22 11/18/22 07:29 11:07 POC Glucose 163 H 287 H Medications Medications Current Medications Acetaminophen (Acetaminophen 325 Mg Tablet) 650 mg PO Q6H PRN PRN Reason: Headache/Pain Mild Scale (1-3) Last Admin: 11/18/22 09:30 Dose: 650 mg Al Hydroxide/Mg Hydroxide (Magnesium Hydrox/Alum Hydrox 30 Ml Oral.Susp) 30 ml PO Q6H PRN PRN Reason: Heartburn/Nausea Albuterol Sulfate (Albuterol Sulfate 90 Mcg 8 Gm Inhaler) 2 puff INHALE Q4H PRN PRN Reason: Wheezing Aspirin (Aspirin Enteric Coated 81 Mg Tablet.) 81 mg PO DAILY DIANA Last Admin: 11/18/22 08:37 Dose: 81 mg Atorvastatin Calcium (Atorvastatin Calcium 20 Mg Tablet) 20 mg PO BEDTIME [facility] Last Admin: 11/17/22 21:18 Dose: 20 mg Clonazepam (Clonazepam 0.5 Mg Tablet) 0.25 mg PO DAILY PRN PRN Reason: Anxiety Cyclobenzaprine HCl (Cyclobenzaprine Hcl 5 Mg Tablet) 5 mg PO TID PRN PRN Reason: spasms Last Admin: 11/13/22 04:41 Dose: 5 mg Escitalopram Oxalate (Escitalopram Oxalate 10 Mg Tablet) 10 mg PO DAILY [facility] Last Admin: 11/18/22 08:37 Dose: 10 mg Gabapentin (Gabapentin 300 Mg Capsule) 300 mg PO TID PRN PRN Reason: pain Last Admin: 11/13/22 22:07 Dose: 300 mg Hydroxyzine HCl (Hydroxyzine Hcl 25 Mg Tablet) 25 mg PO Q6H PRN PRN Reason: Anxiety Last Admin: 11/13/22 00:08 Dose: 25 mg Insulin Glargine (Insulin Glargine,Hum.Rec.Anlog 100 Unit/Ml 10 Ml Vial) 26 unit SUBCUT BEDTIME [facility] Last Admin: 11/17/22 21:18 Dose: 26 unit Insulin Human Lispro (Insulin Lispro 100 Unit/Ml 3 Ml Vial) 0 unit SUBCUT QIDACHS [facility]; Protocol Last Admin: 11/18/22 08:36 Dose: 2 unit Insulin Human Lispro (Insulin Lispro 100 Unit/Ml 3 Ml Vial) 5 unit SUBCUT QIDACHS [facility] Last Admin: 11/18/22 08:37 Dose: 5 unit Magnesium Hydroxide (Milk Of Magnesia 30 Ml Oral.Susp) 30 ml PO DAILY PRN PRN Reason: Constipation Metformin HCl (Metformin Hcl Er 500 Mg Tab.Er.24h) 500 mg PO BID [facility] Last Admin: 11/18/22 08:37 Dose: 500 mg Mirtazapine (Mirtazapine 7.5 Mg Tablet) 7.5 mg PO BEDTIME PRN PRN Reason: sleep Multi-Ingred Cream/Lotion/Oil/Oint (Artificial Tears Ophth Oint 3.5 Gm Tube) 1 appl EYE-BOTH DAILY PRN; Protocol PRN Reason: Dry Eye(S) Olanzapine (Olanzapine 2.5 Mg Tablet) 2.5 mg PO BEDTIME [facility] Last Admin: 05/15/23 21:21 Dose: 2.5 mg Simethicone (Simethicone 80 Mg Tab.Chew) 80 mg PO TID PRN PRN Reason: gas Topiramate (Topiramate 25 Mg Tablet) 50 mg PO BID [facility] Last Admin: 11/18/22 08:37 Dose: 50 mg Trazodone HCl (Trazodone Hcl 50 Mg Tablet) 50 mg PO BEDTIME MRX1 PRN PRN Reason: Insomnia Last Admin: 11/17/22 21:31 Dose: 50 mg Vitamin D (Cholecalciferol (Vitamin D3) 25 Mcg Tablet) 50 mcg PO DAILY [facility] Last Admin: 11/18/22 08:38 Dose: 50 mcg Allergies Allergies Allergy/AdvReac Type Severity Reaction Status Date / Time COVID-19 vacc, bv (Orig, Allergy Severe Swelling Unverified 09/30/22 16:08 Omicron BA.4/5) (Pfizer) [From Pfizer COVID Bival(12y up)()] homosalate [From Coppertone] Allergy Intermediate RASH, itchy Verified 09/30/22 15:10 octinoxate [From Coppertone] Allergy Intermediate RASH, itchy Verified 09/30/22 15:10 oxybenzone [From Coppertone] Allergy Intermediate RASH, itchy Verified 09/30/22 15:10 diovan Allergy Unknown rash Uncoded 09/30/22 15:10 Assessment & Plan Assessment & Plan (1) Major depressive disorder: Status: Acute Code(s): F32.9 - Major depressive disorder, single episode, unspecified Plan Elderly [place] female with a long history of major depressive disorder treated in the community with Me[facility], admitted for exacerbation of depression with neurovegetative symptoms in the context of losses. She also presented with psychotic symptoms elicited by paranoia, auditory hallucinations and racing thoughts. She complained of passive suicidal ideation but she was able to contract for safety in the facility. Plan 1. Gather collateral information. 2. Start Lexapro 10 mg p.o. q.a.m.. 3. Start a very low dose of olanzapine 2.5 mg p.o. q.h.s. to target auditory hallucinations, paranoia and racing thoughts at night. 4. Continue medical workout. 5. Start working on discharge planning condition on treatment in the community Reason for continued inpatient stay Substantial Risk for: inability to function, rapid decompensation and med/psych decompensation Time Spent With Patient Time: Total time managing care of this patient today __20__ minutes.
[2022-11-18 16:13] LABS: Glucose, Whole Blood 251 mg/dL (60-115)
[2022-11-18 18:00] VITALS: BP 146/65; PULSE 84; RESP 16; TEMP 36.6; O2SAT 100
[2022-11-18 20:55] LABS: Glucose, Whole Blood 163 mg/dL (60-115)
[2022-11-18] MEDS: OLANZapine 2.5 MG TABLET PO (20:58)
[2022-11-18] MEDS: traZODone HCL 50 MG TABLET PO (20:58)
[2022-11-18] MEDS: Atorvastatin Calcium 20 MG TABLET PO (21:00)
[2022-11-18] MEDS: Insulin Glargine,Hum.rec.anlog 100 UNIT/ML 10 ML VIAL 26 UNIT SUBCUT (21:01)
[2022-11-19 07:55] LABS: Glucose, Whole Blood 138 mg/dL (60-115)
[2022-11-19 08:08] VITALS: BP 122/72; PULSE 84; RESP 18; TEMP 36.4; O2SAT 96
--- NOTE | 2022-11-19 08:15 | PM.PSYDC ---
DS: Providers Provider Date of Service: 11/19/22 Date of admission: 11/12/22 16:45 Date of discharge: 11/19/22 Primary care physician: Unknown Physician Attending physician on discharge: Daniel Abbott DS: Diagnosis Discharge Diagnosis (1) Major depressive disorder: Status: Acute DS: Medications Discharge Medications Home Medications: Home Medications Medication Instructions Recorded Confirmed aspirin 81 mg tablet,delayed 81 mg PO DAILY 05/23/20 11/12/22 release clonazepam 0.5 mg tablet 0.5 mg PO DAILY PRN Anxiety 05/23/20 11/12/22 pen needle, diabetic 32 gauge x #50 ea 05/23/20 06/05/22 topiramate 50 mg tablet 50 mg PO BID 05/23/20 11/12/22 albuterol sulfate 90 mcg/actuation 2 inh inhalation Q4H PRN Wheezing 09/17/20 11/12/22 aerosol inhaler lancets 33 gauge (TRUEplus Lancets) #100 ea 11/20/20 06/05/22 simethicone 125 mg chewable tablet 125 mg PO TID 12/24/20 11/12/22 citalopram 20 mg tablet 1 tab PO DAILY 05/16/21 11/12/22 mirtazapine 7.5 mg tablet 7.5 mg PO BEDTIME 06/21/21 11/12/22 lisinopril 20 mg tablet 20 mg PO DAILY 09/04/21 11/12/22 gabapentin 100 mg capsule 100 mg PO TID 08/14/22 11/12/22 ascorbic acid (vitamin C) 500 mg 500 mg PO DAILY 11/12/22 11/12/22 tablet (Vitamin C) Previous Rx's Medication Instructions Recorded lancets 33 gauge (TRUEplus Lancets) #120 ea 08/23/21 atorvastatin 20 mg tablet 20 mg PO BEDTIME #30 tabs 09/10/21 cholecalciferol (vitamin D3) 50 50 mcg PO DAILY 30 days #30 caps 09/24/21 mcg (2,000 unit) capsule blood sugar diagnostic (FreeStyle #150 ea 10/23/21 Lite Strips) Lantus Solostar U-100 Insulin 100 22 unit (0.22 mL) subcut QPM 30 11/18/21 unit/mL (3 mL) subcutaneous pen days #15 mL (insulin glargine) pen needle, diabetic 32 gauge x #100 ea 02/24/22/32 (BD Deedee 2nd Gen Pen Needle) semaglutide 1 mg/dose (4 mg/3 mL) 1 mg (0.75 mL) subcut QWEEK #3 mL 03/16/22 subcutaneous pen injector (Ozempic) metformin 500 mg tablet,extended 500 mg PO BID #60 tabs 06/06/22 release 24 hr cyclobenzaprine 5 mg tablet 5 mg PO TID #90 tabs 08/14/22 gabapentin 300 mg capsule 300 mg PO TID #90 caps 08/14/22 Mental Status Exam Mental Status Exam Patient Appearance: Appropriate Patient Orientation: Person and Situation Level of Consciousness: Awake and Appropriate Patient Behavior: Guarded and Passive Mood Description: Withdrawn Affect Description: Constricted Patient Cognition Impaired: Yes Ability to Follow Directions: Good Speech Pattern: Clear Hallucinations: None Delusions: Paranoid Ideation Thought Process: Linear Thought Content: positive for Home Judgement: Fair Data Data Completed and Pending Completed studies during hospitalization [Text1]: 11/12/22 11/12/22 11/12/22 09:59 17:11 18:28 Sodium Potassium Chloride Carbon Dioxide Anion Gap BUN Creatinine Estim Creat Clear Calc Estimated GFR POC Glucose 336 H 310 H Fasting Glucose Estimat Average Glucose Hemoglobin A1c % Calcium Total Bilirubin AST ALT Alkaline Phosphatase Total Protein Albumin Triglycerides Cholesterol LDL Cholesterol, Calc HDL Cholesterol Vitamin B12 TSH COVID-19 (DAVE) Negative COVID-19 Clin Com See Note 11/12/22 11/13/22 11/13/22 19:59 07:48 07:54 Sodium 137 Potassium 4.8 Chloride 104 Carbon Dioxide 26 Anion Gap 12 BUN 20 H Creatinine 1.10 Estim Creat Clear Calc 50.3 Estimated GFR 49 POC Glucose 322 H 320 H Fasting Glucose 346 H Estimat Average Glucose Hemoglobin A1c % Calcium 9.6 Total Bilirubin 0.6 AST 19 ALT 23 Alkaline Phosphatase 75 Total Protein 7.3 Albumin 3.9 Triglycerides 61 Cholesterol 149 LDL Cholesterol, Calc 79 HDL Cholesterol 58 Vitamin B12 772 TSH 2.07 COVID-19 (DAVE) COVID-19 Clin Com 11/13/22 11/13/22 11/13/22 07:54 10:49 20:19 Sodium Potassium Chloride Carbon Dioxide Anion Gap BUN Creatinine Estim Creat Clear Calc Estimated GFR POC Glucose 386 H* 241 H Fasting Glucose Estimat Average Glucose 278 Hemoglobin A1c % 11.3 Calcium Total Bilirubin AST ALT Alkaline Phosphatase Total Protein Albumin Triglycerides Cholesterol LDL Cholesterol, Calc HDL Cholesterol Vitamin B12 TSH COVID-19 (DAVE) COVID-19 [employer] 11/14/22 11/14/22 11/14/22 08:15 11:43 18:56 Sodium Potassium Chloride Carbon Dioxide Anion Gap BUN Creatinine Estim Creat Clear Calc Estimated GFR POC Glucose 298 H 364 H* 358 H* Fasting Glucose Estimat Average Glucose Hemoglobin A1c % Calcium Total Bilirubin AST ALT Alkaline Phosphatase Total Protein Albumin Triglycerides Cholesterol LDL Cholesterol, Calc HDL Cholesterol Vitamin B12 TSH COVID-19 (DAVE) COVID-19 [employer] 11/14/22 11/15/22 11/15/22 20:47 07:40 11:26 Sodium Potassium Chloride Carbon Dioxide Anion Gap BUN Creatinine Estim Creat Clear Calc Estimated GFR POC Glucose 326 H 249 H 328 H Fasting Glucose Estimat Average Glucose Hemoglobin A1c % Calcium Total Bilirubin AST ALT Alkaline Phosphatase Total Protein Albumin Triglycerides Cholesterol LDL Cholesterol, Calc HDL Cholesterol Vitamin B12 TSH COVID-19 (DAVE) COVID-19 [employer] 11/15/22 11/15/22 11/16/22 16:29 20:18 07:46 Sodium Potassium Chloride Carbon Dioxide Anion Gap BUN Creatinine Estim Creat Clear Calc Estimated GFR POC Glucose 328 H 344 H 231 H Fasting Glucose Estimat Average Glucose Hemoglobin A1c % Calcium Total Bilirubin AST ALT Alkaline Phosphatase Total Protein Albumin Triglycerides Cholesterol LDL Cholesterol, Calc HDL Cholesterol Vitamin B12 TSH COVID-19 (DAVE) COVID-19 [employer] 11/16/22 11/16/22 11/16/22 11:34 16:19 20:57 Sodium Potassium Chloride Carbon Dioxide Anion Gap BUN Creatinine Estim Creat Clear Calc Estimated GFR POC Glucose 308 H 177 H 259 H Fasting Glucose Estimat Average Glucose Hemoglobin A1c % Calcium Total Bilirubin AST ALT Alkaline Phosphatase Total Protein Albumin Triglycerides Cholesterol LDL Cholesterol, Calc HDL Cholesterol Vitamin B12 TSH COVID-19 (DAVE) COVID-19 [facility] 11/17/22 11/17/22 11/17/22 07:43 11:04 16:02 Sodium Potassium Chloride Carbon Dioxide Anion Gap BUN Creatinine Estim Creat Clear Calc Estimated GFR POC Glucose 248 H 378 H* 112 Fasting Glucose Estimat Average Glucose Hemoglobin A1c % Calcium Total Bilirubin AST ALT Alkaline Phosphatase Total Protein Albumin Triglycerides Cholesterol LDL Cholesterol, Calc HDL Cholesterol Vitamin B12 TSH COVID-19 (DAVE) COVID-19 [employer] 0511/18/22 11/18/22 20:59 07:29 11:07 Sodium Potassium Chloride Carbon Dioxide Anion Gap BUN Creatinine Estim Creat Clear Calc Estimated GFR POC Glucose 273 H 163 H 287 H Fasting Glucose Estimat Average Glucose Hemoglobin A1c % Calcium Total Bilirubin AST ALT Alkaline Phosphatase Total Protein Albumin Triglycerides Cholesterol LDL Cholesterol, Calc HDL Cholesterol Vitamin B12 TSH COVID-19 (DAVE) COVID-19 [employer] [facility] 11/18/22 11/18/22 11/19/22 16:09 20:51 07:51 Sodium Potassium Chloride Carbon Dioxide Anion Gap BUN Creatinine Estim Creat Clear Calc Estimated GFR POC Glucose 251 H 163 H 138 H Fasting Glucose Estimat Average Glucose Hemoglobin A1c % Calcium Total Bilirubin AST ALT Alkaline Phosphatase Total Protein Albumin Triglycerides Cholesterol LDL Cholesterol, Calc HDL Cholesterol Vitamin B12 TSH COVID-19 (DAVE) COVID-19 [employer] 11/12/22 09:48 Urine clean catch - Urine simpson top Urine Culture - Final Escherichia coli DS: Summary Hospital Course Hospital Course: The patient is an elderly descent female with a prior history of mood disorder who was admitted into the facility from the emergency room of another hospital due to suicidal ideation. According to the crisis team, the patient had been more depressed, with lack of energy and suicidal ideation. Please see the HPI of the admission note for further details. On admission, we started the medical workout and the patient admitted a long history of depression but also history racing thoughts and insomnia. We found out also, the patient had a UTI and she was treated with antibiotics with resolution of her symptoms. We reviewed her list of medications and she had been on Topamax as a mood stabilizer and Celexa. We started with Lexapro instead of Celexa, kept her Topamax and since the patient reported insomnia, racing thoughts and mixed symptoms we added olanzapine titrated up to 5 mg p.o. q.h.s. as a 2nd mood stabilizer. The patient's sleep improved, she was able to participating a few groups, she was future oriented and her suicidal ideation resolved. Since there were no safety concerns discharge planning was discussed. Time spent discussing smoking cessation with patient: 3 to 10 minutes Status at Discharge Functional status at discharge: independent ambulation Overall status at discharge: patient is back to baseline Time Spent with Patient Time attestation: Total time managing care of this patient today ___30_ minutes. Time spent: Less than 30 minutes Discharge Plan Discharge Anticipated Discharge Date/Time: 11/19/22 10:00 Patient Disposition: Home, Self-Care Discharge Diagnosis: Mood disorder UTI resolved Referrals: Marly Key [facility] [Other] - 12/30/22 2:20 pm (Your next telehealth psychiatry appointment 12/30/22 from 2:20-2:40.) [facility] [Other] - 11/19/22 (Your CCA services will resume and your care transition mgr will follow up with you by phone. Your DISMANTLER hours for [facility] [facility] will resume at time of discharge. ) [facility] [Other] - 11/20/22 (Referral was placed for [facility] to provide medication management and OT in the home. ) Veronica Martinez [facility] [Other] - 11/27/22 3:00 pm (Your next telehealth therapy appointment is scheduled for 3PM.) [facility] [Other] - 11/27/22 1:30 pm (Harman ronak de seguimiento rader sido programada para el Jues 27/11/22 a las 1:30pm con el Doctor Monalisa.) Discharge Medications: New trazodone 50 mg Tablet 50 mg PO BEDTIME MRX1 PRN (Reason: Insomnia) 30 Days Qty: 30 0RF olanzapine 2.5 mg Tablet 2.5 mg PO BEDTIME 30 Days Qty: 30 0RF simethicone [Gas Relief (simethicone)] 80 mg Tablet,Chewable 80 mg PO TID PRN (Reason: gas) 30 Days Qty: 30 0RF escitalopram oxalate 10 mg Tablet 10 mg PO DAILY 30 Days Qty: 30 0RF cyclobenzaprine 5 mg Tablet 5 mg PO TID PRN (Reason: muscle spasms) 30 Days Qty: 90 0RF Lubrifresh PM 83-15 % Ointment 1 appl ophthalmic (eye) DAILY PRN (Reason: Dry Eye(S)) 30 Days Qty: 1 0RF Protocol: Apply to: Apply to: Both eyes Continued atorvastatin 20 mg tablet 20 mg PO BEDTIME Qty: 30 11RF lisinopril 20 mg tablet 20 mg PO DAILY 30 Days Qty: 30 0RF clonazepam 0.5 mg tablet 0.5 mg PO DAILY PRN (Reason: Anxiety) 30 Days Qty: 30 0RF (DME) FreeStyle Lite Strips Strip See Rx Instructions .ROUTE .MEDSUPPLY Qty: 150 11RF Rx Instructions: 4 times a day aspirin 81 mg tablet,delayed release (DR/EC) 81 mg PO DAILY 30 Days Qty: 30 0RF ascorbic acid (vitamin C) [Vitamin C] 500 mg Tablet 500 mg PO DAILY 30 Days Qty: 30 0RF gabapentin 300 mg capsule 300 mg PO TID 30 Days Qty: 90 3RF albuterol sulfate 90 mcg/actuation HFA aerosol inhaler 2 inh inhalation Q4H PRN (Reason: Wheezing) 30 Days Qty: 1 0RF metformin 500 mg tablet extended release 24 hr 500 mg PO BID Qty: 60 0RF topiramate 50 mg tablet 50 mg PO BID 30 Days Qty: 60 0RF mirtazapine 7.5 mg tablet 7.5 mg PO BEDTIME 30 Days Qty: 30 0RF insulin glargine [Lantus Solostar U-100 Insulin] 100 unit/mL (3 mL) insulin pen 22 unit subcut QPM 30 Days Qty: 15 6RF cholecalciferol (vitamin D3) 50 mcg (2,000 unit) capsule 50 mcg PO DAILY 30 Days Qty: 30 0RF (DME) pen needle, diabetic 32 gauge x 5/32 needle See Rx Instructions subcut .MEDSUPPLY Qty: 50 0RF Rx Instructions: As directed (DME) lancets [TRUEplus Lancets] 33 gauge misc See Rx Instructions .ROUTE .MEDSUPPLY Qty: 100 0RF Rx Instructions: As directed test blood sugar 4 times a day Ozempic 1 mg/dose (4 mg/3 mL) pen injector 1 mg subcut QWEEK Qty: 3 4RF Rx Instructions: on wednesdays Discontinued (DME) lancets [TRUEplus Lancets] 33 gauge misc See Rx Instructions .ROUTE .MEDSUPPLY Qty: 120 11RF Rx Instructions: 4 times a day (DME) pen needle, diabetic [BD Deedee 2nd Gen Pen Needle] 32 gauge x 5/32 needle See Rx Instructions .MEDSUPPLY Qty: 100 4RF Rx Instructions: 1 times a day citalopram 20 mg tablet 1 tab PO DAILY simethicone 125 mg tablet,chewable 125 mg PO TID cyclobenzaprine 5 mg tablet 5 mg PO TID Qty: 90 0RF gabapentin 100 mg capsule 100 mg PO TID Discharge Orders: Discharge Order (Routine); Ordered 11/19/22 Ordered By: Daniel Abbott Diet: Advance to usual diet Activity on Discharge: As tolerated Stand Alone Forms: Patient Portal Discharge page Care Plan Goals: Care plan goals achieved in this admission Health Concerns: Continue treatment with outpatient providers Plan of Treatment: Continue medication management by usual outpatient providers. Assessment: Elderly descent female with a history of mood disorder admitted for suicidal ideation in the context of a UTI and altered mental status. At this moment safe in the facility, improvement and resolution of suicidality. Safe to be in the community
[2022-11-19] MEDS: metFORMIN HCl ER 500 MG TAB.ER.24H PO (08:23)
[2022-11-19] MEDS: Aspirin Enteric Coated 81 MG TABLET.DR PO (08:23)
[2022-11-19] MEDS: Cholecalciferol (Vitamin D3) 25 MCG TABLET 50 MCG PO (08:23)
[2022-11-19] MEDS: Escitalopram Oxalate 10 MG TABLET PO (08:23)
[2022-11-19] MEDS: Topiramate 25 MG TABLET 50 MG PO (08:23)
== END 2022-11-19 13:01 | disposition home or self-care (01) | DRG 881 ==
LOC: HO.ED 11-12 15:44 → HO.PGERI 11-12 16:53
PROVIDERS: Internal Medicine; Admitting Provider Social Worker; Emergency Provider Emergency Medicine Emergency Medical Services; Visit Provider Social Worker
DX: F32.9 Major depressive disorder, single episode, unspecified (principal); R45.851 Suicidal ideations; N39.0 Urinary tract infection, site not specified; E11.42 Type 2 diabetes mellitus with diabetic polyneuropathy; Z20.822 Contact with and (suspected) exposure to COVID-19; Z79.4 Long term (current) use of insulin; Z79.82 Long term (current) use of aspirin; Z79.899 Other long term (current) drug therapy
CPT/HCPCS: 36415; 80053; 80061; 80307; 81001; 82607; 82947; 83036; 83735; 84443; 85025; 87086; 87088; 87186; 87635; 93005; 99285; S9485

== ENCOUNTER 2022-11-18 06:21 | Outpatient (REF) | payer OTHER, SELFPAY | END 2022-11-18 06:22 | disposition home or self-care (01) | LOC: CF 06:21 | PROVIDERS: Visit Provider Anesthesiology | DX: Z13.89 Encounter for screening for other disorder (principal) ==

== ENCOUNTER 2022-11-26 09:25 | Outpatient (REF) | payer OTHER, SELFPAY ==
--- NOTE | 2022-11-26 08:30 | EMG_ITS ---
Please see scanned EMG / Nerve Conduction Report. MTDD
== END 2022-11-26 09:26 | disposition home or self-care (01) ==
LOC: HO.NEURO 09:25
PROVIDERS: PCP Family Medicine; Visit Provider Psychiatry & Neurology Neurology
DX: R20.0 Anesthesia of skin (principal); R20.2 Paresthesia of skin; R53.1 Weakness
CPT/HCPCS: 95885; 95910

== ENCOUNTER 2022-12-09 06:01 | Outpatient (REF) | payer OTHER, SELFPAY | END 2022-12-09 06:02 | disposition home or self-care (01) | LOC: CF 06:01 | PROVIDERS: Visit Provider Anesthesiology | DX: Z13.89 Encounter for screening for other disorder (principal) ==

== ENCOUNTER 2022-12-09 16:57 | Emergency (ER) | payer OTHER, SELFPAY ==
--- NOTE | ~2022-12-09 | CT_ITS ---
EXAMINATION: CT ANGIOGRAM NECK WITH CONTRAST CT ANGIOGRAM BRAIN WITH CONTRAST CT HEAD WITHOUT CONTRAST CLINICAL INFORMATION: Aphasia and weakness. COMPARISON: Brain MRI 09/14/2017. TECHNIQUE: Test bolus sequences followed by intravenous administration 100 mL of Omnipaque 350. Helical imaging was performed in the axial plane from the thoracic inlet to the skull vertex. Delayed postcontrast imaging of the head was also performed. The data was processed at the certified performance technologist workstation for generation of MIP sequences. Angled MIPs and volume rendered reformatted images were also generated at an offline 3D workstation. Stenoses are assessed in accordance with NASCET criteria unless otherwise indicated. This CT examination was performed using dose optimization techniques as appropriate, variously including the following: *Automated exposure control *Adjustment of mA and/or kV according to patient size (this includes techniques or standardized protocols for targeted exams where dose is matched to indication/reason for exam; i.e. extremities or head) *Use of iterative reconstruction technique DLP: 774 mGy-cm FINDINGS: Head CT: There is no intracranial hemorrhage, large acute infarction, or mass lesion. The ventricles are normal in size and configuration without evidence of hydrocephalus. There is no abnormal enhancement. The dural venous sinuses are normally opacified. The visualized paranasal sinuses and mastoid air cells are clear. Neck CTA: The aortic arch and great vessel origins are patent. The common and internal carotid arteries are patent. Both vertebral arteries are patent the right side being dominant. Head CTA: No large vessel occlusion is seen. The anterior and posterior circulation arteries are patent. There is no significant stenosis. No aneurysm is seen. Non-vascular findings: The cervical soft tissues are within normal limits. There is no consolidation within the upper lungs. Mild degenerative changes are seen in the spine. CT/CT head for stroke IMPRESSION: CT HEAD: No intracranial hemorrhage or large acute infarction. CTA NECK: No hemodynamically significant stenosis in the major arteries of the neck. CTA HEAD: No large vessel occlusion or significant stenosis within the intracranial circulation. This critical result was discussed with Kenneth adkins on 12/09/2022 5:43 PM, and it was ascertained that the content and urgency of the report was understood at the time of direct communication.
--- NOTE | ~2022-12-09 | XR_ITS ---
EXAMINATION: XR CHEST CLINICAL INFORMATION: Altered mental status with shortness of breath COMPARISON: Chest radiograph 10/23/2022 TECHNIQUE: Frontal view of the chest was obtained. FINDINGS: Lungs are hypoinflated compared to the prior study. Allowing for this, no significant abnormality is noted involving the heart, lungs, mediastinum, bony thorax or soft tissues. Central vascular prominence probably accounted for by hypoinflation. XR/XR chest 1V IMPRESSION: Hypoinflated lungs with no acute intrathoracic disease.
--- NOTE | ~2022-12-09 | CT_ITS ---
EXAMINATION: CT ANGIOGRAM NECK WITH CONTRAST CT ANGIOGRAM BRAIN WITH CONTRAST CT HEAD WITHOUT CONTRAST CLINICAL INFORMATION: Aphasia and weakness. COMPARISON: Brain MRI 09/14/2017. TECHNIQUE: Test bolus sequences followed by intravenous administration 100 mL of Omnipaque 350. Helical imaging was performed in the axial plane from the thoracic inlet to the skull vertex. Delayed postcontrast imaging of the head was also performed. The data was processed at the electronic technologist workstation for generation of MIP sequences. Angled MIPs and volume rendered reformatted images were also generated at an offline 3D workstation. Stenoses are assessed in accordance with NASCET criteria unless otherwise indicated. This CT examination was performed using dose optimization techniques as appropriate, variously including the following: *Automated exposure control *Adjustment of mA and/or kV according to patient size (this includes techniques or standardized protocols for targeted exams where dose is matched to indication/reason for exam; i.e. extremities or head) *Use of iterative reconstruction technique DLP: 774 mGy-cm FINDINGS: Head CT: There is no intracranial hemorrhage, large acute infarction, or mass lesion. The ventricles are normal in size and configuration without evidence of hydrocephalus. There is no abnormal enhancement. The dural venous sinuses are normally opacified. The visualized paranasal sinuses and mastoid air cells are clear. Neck CTA: The aortic arch and great vessel origins are patent. The common and internal carotid arteries are patent. Both vertebral arteries are patent the right side being dominant. Head CTA: No large vessel occlusion is seen. The anterior and posterior circulation arteries are patent. There is no significant stenosis. No aneurysm is seen. Non-vascular findings: The cervical soft tissues are within normal limits. There is no consolidation within the upper lungs. Mild degenerative changes are seen in the spine. CT/CT angio head neck stroke IMPRESSION: CT HEAD: No intracranial hemorrhage or large acute infarction. CTA NECK: No hemodynamically significant stenosis in the major arteries of the neck. CTA HEAD: No large vessel occlusion or significant stenosis within the intracranial circulation. This critical result was discussed with Kenneth adkins on 12/09/2022 5:43 PM, and it was ascertained that the content and urgency of the report was understood at the time of direct communication.
--- NOTE | 2022-12-09 17:01 | ECG_ITS ---
Test Reason : weakness Blood Pressure : / mmHG Vent. Rate : 088 BPM Atrial Rate : 088 BPM P-R Int : 128 ms QRS Dur : 084 ms QT Int : 326 ms P-R-T Axes : 060 014 017 degrees QTc Int : 394 ms Artifact Normal sinus rhythm Nonspecific T wave abnormality Abnormal ECG When compared with ECG of 12-NOV-2022 11:21, No significant change was found Referred By: Kenneth Aguilar Electronically Signed By:Shashi Johnston
[2022-12-09 17:06] LABS: Glucose, Whole Blood 295 mg/dL (60-115)
[2022-12-09 17:07] VITALS: BP 155/84; PULSE 87; RESP 16; TEMP 36.1; O2SAT 100; BMI 38.3
--- NOTE | 2022-12-09 17:16 | ED_ITS ---
HPI - Neuro Symptoms/Deficit General Chief Complaint: Neuro Symptoms/Deficit Stated Complaint: Syncope Time Seen by Provider: 12/09/22 17:00 Source: patient and family Mode of arrival: ambulatory Limitations: other (poor historian ) History of Present Illness HPI Narrative: This is a 72-year-old female history of depression, elevated hemoglobin A1c, fibromyalgia, diabetic neuropathy, obesity, diabetes, hypertension, dyslipidemia presenting with sudden onset weakness, altered mental status that started at 04:45. Patient was at an appointment at pain management, was walking out of the cafeteria suddenly held onto the wall, started shaking per daughter and was brought down by staff here at [facility]. According to daughter she was fine before this, symptoms started at 16:45. Patient not on blood thinners. Daughter who is at the bedside reports that patient recently had a psychiatric admission here at the hospital and was discharged recently. Patient unable to provide me a history. Unable to follow commands, not speaking well, unable to obtain NIH stroke scale on arrival. Related Data Previous Rx's Medication Instructions Recorded Lantus Solostar U-100 Insulin 100 22 unit (0.22 mL) subcut QPM 30 11/19/22 unit/mL (3 mL) subcutaneous pen days #15 mL (insulin glargine) albuterol sulfate 90 mcg/actuation 2 inh inhalation Q4H PRN Wheezing 11/19/22 aerosol inhaler 30 days #1 g ascorbic acid (vitamin C) 500 mg 500 mg PO DAILY 30 days #30 tabs 11/19/22 tablet (Vitamin C) aspirin 81 mg tablet,delayed 81 mg PO DAILY 30 days #30 tabs 11/19/22 release atorvastatin 20 mg tablet 20 mg PO BEDTIME #30 tabs 11/19/22 blood sugar diagnostic (FreeStyle #150 ea 11/19/22 Lite Strips) cholecalciferol (vitamin D3) 50 50 mcg PO DAILY 30 days #30 caps 11/19/22 mcg (2,000 unit) capsule clonazepam 0.5 mg tablet 0.5 mg PO DAILY PRN Anxiety 30 11/19/22 days #30 tabs cyclobenzaprine 5 mg tablet 5 mg PO TID PRN muscle spasms 30 11/19/22 days #90 tabs escitalopram oxalate 10 mg tablet 10 mg PO DAILY 30 days #30 tabs 11/19/22 gabapentin 300 mg capsule 300 mg PO TID 30 days #90 caps 11/19/22 lancets 33 gauge (TRUEplus Lancets) #100 ea 11/19/22 lisinopril 20 mg tablet 20 mg PO DAILY 30 days #30 tabs 11/19/22 metformin 500 mg tablet,extended 500 mg PO BID #60 tabs 11/19/22 release 24 hr mirtazapine 7.5 mg tablet 7.5 mg PO BEDTIME 30 days #30 tabs 11/19/22 olanzapine 2.5 mg tablet 2.5 mg PO BEDTIME 30 days #30 tabs 11/19/22 pen needle, diabetic 32 gauge x #50 ea 11/19/22 semaglutide 1 mg/dose (4 mg/3 mL) 1 mg (0.75 mL) subcut QWEEK #3 mL 11/19/22 subcutaneous pen injector (Ozempic) simethicone 80 mg chewable tablet 80 mg PO TID PRN gas 30 days #30 11/19/22 (Gas Relief (simethicone)) tabs topiramate 50 mg tablet 50 mg PO BID 30 days #60 tabs 11/19/22 trazodone 50 mg tablet 50 mg PO BEDTIME MRX1 PRN Insomnia 11/19/22 30 days #30 tabs white petrolatum-mineral oil 83 1 appl ophthalmic (eye) DAILY PRN 11/19/22 %-15 % eye ointment (Lubrifresh PM) Dry Eye(S) 30 days #1 g Allergies Allergy/AdvReac Type Severity Reaction Status Date / Time COVID-19 vacc, bv (Orig, Allergy Severe Swelling Unverified 09/30/22 16:08 Omicron BA.4/5) (Pfizer) [From Pfizer COVID Bival(12y up)(PF)] homosalate [From Coppertone] Allergy Intermediate RASH, itchy Verified 09/30/22 15:10 octinoxate [From Coppertone] Allergy Intermediate RASH, itchy Verified 09/30/22 15:10 oxybenzone [From Coppertone] Allergy Intermediate RASH, itchy Verified 09/30/22 15:10 diovan Allergy Unknown rash Uncoded 09/30/22 15:10 Review of Systems Review of Systems: Yes Unobtainable due to mental status PMFSH Past Medical History Attestation statement: The following information was validated with the patient. 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 Lung cancer Neck pain Numbness and tingling in left arm Obesity (BMI 30-39.9) Thoracic outlet syndrome Vitamin D deficiency Surgical History H/O: hysterectomy Family History Family History Father Osteoporosis Mother Stroke Cancer Social History Social History Household Members: None Housing: Apartment Do you presently have visiting nurse or other home services: Yes (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 Oriented X3.? No acute distress.? Patient appears to be aphasic Head: Normocephalic, atraumatic, no step-offs or deformities Eyes: Pupils equal, round and reactive to light.? ENT: Pharynx normal.? Neck: Normal inspection.? Neck supple.? CVS: Normal heart rate and rhythm.? Pulses normal.? Respiratory: No respiratory distress.? Breath sounds normal.? Abdomen: Soft and nontender.? Skin: Skin warm and dry.? Normal skin color.? Normal skin turgor.? Extremities: No lower extremity edema.? No calf ttp. Global weakness Back: No midline tenderness, no C-spine tenderness, full range of motion, no CVA tenderness bilaterally Neuro: Oriented X 3.? Slight left-sided upper extremity drift. Left-sided deficit noted. Unable to obtain NIH stroke scale due to patient participation in exam. Course Reevaluation(s) Reevaluation #1: Patient shaking and concerned that she is having a seizure, speaking through these episodes. Concerns for pseudo-seizure or psychiatric issue such as depression, anxiety, panic, bipolar disorder schizophrenia. I did speak to her afterwards she says she feels anxious, and is having some depression. She tells me she does not know why she is here who brought her here. Answering questions appropriately at this time. CBC appears to be within normal limits. Chemistry unremarkable. Troponin 3.3, EKG nonischemic. Normal CPK. Coags unremarkable. UA with infection, will start her on Ceftin 250 mg p.o. b.i.d. scheduled. Salicylates, acetaminophen and ethanol negative. Urine toxicology pending. CT chest unremarkable. CTA head and dry head scan wnl. At this time patient will be started on Ceftin, scheduled, medically cleared. Will place her in physician observation to allow more time to be evaluated by the behavioral health team. I suspect that this is likely psychiatric in origin. Time: 20:19 Medications Administered Discontinued Medications Generic Name Dose Route Start Last Admin Trade Name Freq PRN Reason Stop Dose Admin Iohexol 100 ml 12/09/22 17:32 12/09/22 17:32 Iohexol 350 Mg/Ml 100 Ml Infus..Btl IV 12/09/22 17:33 70 ml ONCE ONE Administration Lorazepam 0.5 mg 12/09/22 17:44 12/09/22 18:25 Lorazepam 0.5 Mg Tablet PO 12/09/22 17:45 0.5 mg ONCE ONE Administration Medical Decision Making Medical Decision Making [facility] Narrative: 80-year-old female presents with weakness, altered mental status that started at 16:45. Here with daughter. Physical examination with left-sided deficits to upper and lower extremities and left-sided drift. Patient unable to participate in physical exam in commands difficult to obtain NIH stroke scale and full cranial nerve exam. Concerns for possible psychiatric presentation such as anxiety, panic attack versus acute stroke. Will start stroke protocol this time. I do not suspect intracranial hemorrhage, no trauma reported. Will rule out infection and electrolyte abnormalities although unlikely. To note left-sided deficits are chronic in nature. Plan stroke protocol. Differential Diagnosis Differential Diagnoses: The differential diagnosis associated with the presen tation includes Concerns for possible psychiatric presentation such as anxiety, panic attack versus acute stroke. Will start stroke protocol this time. I do not suspect intracranial hemorrhage, no trauma reported. Will rule out infection and electrolyte abnormalities although unlikely. Admission/Observation Consideration of admission/observation: Escalation of care including admission/observation considered Lab Data MDM Lab Attestation statement: I reviewed the patient's lab results. 12/09/22 18:30 12/09/22 18:08 Labs: Lab Results 12/09/22 12/09/22 12/09/22 Range/Units 17:00 17:46 18:08 WBC (4.8-10.8) X10*3/uL RBC (4.20-5.50) X10*6/uL Hgb (12.0-16.0) g/dl Hct (37.0-47.0) % MCV (80.0-98.0) fL MCH (27.0-33.0) pg MCHC (31.0-35.0) g/dl RDW (11.0-16.0) % Plt Count (160-400) X10*3/uL MPV (9.4-12.3) fL Immature Gran % (Auto) (0.0-0.4) % Neut % (Auto) (45-73) % Lymph % (Auto) (20-40) % [place] % (Auto) (2-11) % Eos % (Auto) (0-4) % Baso % (Auto) (0-2) % Lymph # (Auto) (1.2-4.9) X10*3/uL [place] # (Auto) (0.1-1.2) X10*3/uL Eos # (Auto) (0.0-0.4) X10*3/uL Baso # (Auto) (0.0-0.2) X10*3/uL Abs Immat Gran (auto) (0.00-0.03) X10*3/uL Absolute Neuts (auto) (2.0-8.3) x10*3/uL Absolute Nucleated RBC (0.0-0.012) X10*3/uL Nucleated RBC % (auto) (0.0-0.2) /100WBC PT (10.0-13.1) SEC Whole Blood PT 12.6 (11.1-13.5) sec INR (0.9-1.1) Whole Blood INR 1.1 (0.9-1.1) APTT (26.0-36.4) SEC Sodium 138 (135-145) mmol/L Potassium 4.7 (3.3-5.1) mmol/L Chloride 107 (96-108) mmol/L Carbon Dioxide 22 (22-29) mmol/L Anion Gap 14 (12-20) BUN 21 H (9-16) mg/dL Creatinine 1.14 (0.5-1.4) mg/dL Estim Creat Clear Calc 51.2 Estimated GFR 47 POC Glucose 295 H (60-115) mg/dL Random Glucose 294 H (60-115) mg/dL Calcium 9.2 (8.4-10.2) mg/dL Magnesium 1.9 (1.6-2.6) mg/dL Total Bilirubin 0.4 (0.0-1.0) mg/dL AST 21 (5-31) U/L ALT 27 (0-31) U/L Alkaline Phosphatase 73 (39-117) U/L Total Creatine Kinase 52 (26-140) U/L Troponin I High Sens (<3.5-17.0) ng/L Total Protein 6.9 (6.5-8.0) g/dL Albumin 3.6 (3.5-5.0) g/dL Urine Color Urine Appearance Urine pH (5.0-9.0) Ur Specific [place] (1.005-1.025) Urine Protein (Neg-Trace) mg/dL Urine Glucose (UA) (Negative) mg/dL Urine Ketones (Negative) mg/dL Urine Blood (Negative) Urine Nitrite (Negative) Ur Leukocyte Esterase (Negative) Salicylates (15-30) mg/dL Acetaminophen (<30) mcg/mL Ethyl Alcohol mg/dL COVID-19 (DAVE) (Negative) COVID-19 Clin Com 12/09/22 12/09/22 12/09/22 Range/Units 18:08 18:08 18:30 WBC 9.7 (4.8-10.8) X10*3/uL RBC 4.30 (4.20-5.50) X10*6/uL Hgb 13.4 (12.0-16.0) g/dl Hct 40.6 (37.0-47.0) % MCV 94.4 (80.0-98.0) fL MCH 31.2 (27.0-33.0) pg MCHC 33.0 (31.0-35.0) g/dl RDW 12.9 (11.0-16.0) % Plt Count 210 (160-400) X10*3/uL MPV 12.0 (9.4-12.3) fL Immature Gran % (Auto) 0.3 (0.0-0.4) % Neut % (Auto) 70.8 (45-73) % Lymph % (Auto) 23.8 (20-40) % [place] % (Auto) 4.4 (2-11) % Eos % (Auto) 0.5 (0-4) % Baso % (Auto) 0.2 (0-2) % Lymph # (Auto) 2.3 (1.2-4.9) X10*3/uL [place] # (Auto) 0.4 (0.1-1.2) X10*3/uL Eos # (Auto) 0.1 (0.0-0.4) X10*3/uL Baso # (Auto) 0.0 (0.0-0.2) X10*3/uL Abs Immat Gran (auto) 0.03 (0.00-0.03) X10*3/uL Absolute Neuts (auto) 6.9 (2.0-8.3) x10*3/uL Absolute Nucleated RBC 0.000 (0.0-0.012) X10*3/uL Nucleated RBC % (auto) 0.0 (0.0-0.2) /100WBC PT (10.0-13.1) SEC Whole Blood PT (11.1-13.5) sec INR (0.9-1.1) Whole Blood INR (0.9-1.1) APTT (26.0-36.4) SEC Sodium (135-145) mmol/L Potassium (3.3-5.1) mmol/L Chloride (96-108) mmol/L Carbon Dioxide (22-29) mmol/L Anion Gap (12-20) BUN (9-16) mg/dL Creatinine (0.5-1.4) mg/dL Estim Creat Clear Calc Estimated GFR POC Glucose (60-115) mg/dL Random Glucose (60-115) mg/dL Calcium (8.4-10.2) mg/dL Magnesium (1.6-2.6) mg/dL Total Bilirubin (0.0-1.0) mg/dL AST (5-31) U/L ALT (0-31) U/L Alkaline Phosphatase (39-117) U/L Total Creatine Kinase (26-140) U/L Troponin I High Sens (<3.5-17.0) ng/L Total Protein (6.5-8.0) g/dL Albumin (3.5-5.0) g/dL Urine Color Urine Appearance Urine pH (5.0-9.0) Ur Specific [place] (1.005-1.025) Urine Protein (Neg-Trace) mg/dL Urine Glucose (UA) (Negative) mg/dL Urine Ketones (Negative) mg/dL Urine Blood (Negative) Urine Nitrite (Negative) Ur Leukocyte Esterase (Negative) Salicylates < 5.0 L (15-30) mg/dL Acetaminophen < 17 (<30) mcg/mL Ethyl Alcohol < 10 mg/dL COVID-19 (DAVE) Negative (Negative) COVID-19 Clin Com See Note 12/09/22 12/09/22 12/09/22 Range/Units 18:30 18:30 20:03 WBC (4.8-10.8) X10*3/uL RBC (4.20-5.50) X10*6/uL Hgb (12.0-16.0) g/dl Hct (37.0-47.0) % MCV (80.0-98.0) fL MCH (27.0-33.0) pg MCHC (31.0-35.0) g/dl RDW (11.0-16.0) % Plt Count (160-400) X10*3/uL MPV (9.4-12.3) fL Immature Gran % (Auto) (0.0-0.4) % Neut % (Auto) (45-73) % Lymph % (Auto) (20-40) % [place] % (Auto) (2-11) % Eos % (Auto) (0-4) % Baso % (Auto) (0-2) % Lymph # (Auto) (1.2-4.9) X10*3/uL [place] # (Auto) (0.1-1.2) X10*3/uL Eos # (Auto) (0.0-0.4) X10*3/uL Baso # (Auto) (0.0-0.2) X10*3/uL Abs Immat Gran (auto) (0.00-0.03) X10*3/uL Absolute Neuts (auto) (2.0-8.3) x10*3/uL Absolute Nucleated RBC (0.0-0.012) X10*3/uL Nucleated RBC % (auto) (0.0-0.2) /100WBC PT 12.1 (10.0-13.1) SEC Whole Blood PT (11.1-13.5) sec INR 1.1 (0.9-1.1) Whole Blood INR (0.9-1.1) APTT 27.9 (26.0-36.4) SEC Sodium (135-145) mmol/L Potassium (3.3-5.1) mmol/L Chloride (96-108) mmol/L Carbon Dioxide (22-29) mmol/L Anion Gap (12-20) BUN (9-16) mg/dL Creatinine (0.5-1.4) mg/dL Estim Creat Clear Calc Estimated GFR POC Glucose (60-115) mg/dL Random Glucose (60-115) mg/dL Calcium (8.4-10.2) mg/dL Magnesium (1.6-2.6) mg/dL Total Bilirubin (0.0-1.0) mg/dL AST (5-31) U/L ALT (0-31) U/L Alkaline Phosphatase (39-117) U/L Total Creatine Kinase (26-140) U/L Troponin I High Sens 3.3 (<3.5-17.0) ng/L Total Protein (6.5-8.0) g/dL Albumin (3.5-5.0) g/dL Urine Color Yellow Urine Appearance Clear Urine pH 6.5 (5.0-9.0) Ur Specific [place] >= 1.030 H (1.005-1.025) Urine Protein Negative (Neg-Trace) mg/dL Urine Glucose (UA) 500 H (Negative) mg/dL Urine Ketones Negative (Negative) mg/dL Urine Blood Negative (Negative) Urine Nitrite Positive H (Negative) Ur Leukocyte Esterase Negative (Negative) Salicylates (15-30) mg/dL Acetaminophen (<30) mcg/mL Ethyl Alcohol mg/dL COVID-19 (DAVE) (Negative) COVID-19 Clin Com Independent Interpretation I performed an independent interpretation of an: EKG and CT Scan Radiology Impression Discussion of test interpretation with radiology: I have reviewed the radiologist's reading. External Record Review External record reviewed: Inpatient record, Office record, Outpatient record, Prior outpatient labs, Prior outpatient radiology, Primary care record and Outside ED record Prescription Management I considered prescription management with: Antibiotic Core Measures AMI core measures followed: Yes Measure exclusions: not indicated Critical Care Time Critical Care Time Critical Care Time: Yes Total Critical Care Time: 45 Attestation: I attest to this time spent taking care of the patient, obtaining history, physical, reviewing labs, imaging, speaking to my attending, speaking to specialist. Discharge Plan Discharge Clinical Impression: Anxiety, Depression, Acute UTI Patient Disposition: Still a Patient Prescriptions: No Action trazodone 50 mg Tablet 50 mg PO BEDTIME MRX1 PRN (Reason: Insomnia) 30 Days Qty: 30 0RF olanzapine 2.5 mg Tablet 2.5 mg PO BEDTIME 30 Days Qty: 30 0RF simethicone [Gas Relief (simethicone)] 80 mg Tablet,Chewable 80 mg PO TID PRN (Reason: gas) 30 Days Qty: 30 0RF escitalopram oxalate 10 mg Tablet 10 mg PO DAILY 30 Days Qty: 30 0RF cyclobenzaprine 5 mg Tablet 5 mg PO TID PRN (Reason: muscle spasms) 30 Days Qty: 90 0RF Lubrifresh PM 83-15 % Ointment 1 appl ophthalmic (eye) DAILY PRN (Reason: Dry Eye(S)) 30 Days Qty: 1 0RF Protocol: Apply to: Apply to: Both eyes atorvastatin 20 mg tablet 20 mg PO BEDTIME Qty: 30 11RF lisinopril 20 mg tablet 20 mg PO DAILY 30 Days Qty: 30 0RF clonazepam 0.5 mg tablet 0.5 mg PO DAILY PRN (Reason: Anxiety) 30 Days Qty: 30 0RF (DME) FreeStyle Lite Strips Strip See Rx Instructions .ROUTE .MEDSUPPLY Qty: 150 11RF Rx Instructions: 4 times a day aspirin 81 mg tablet,delayed release (DR/EC) 81 mg PO DAILY 30 Days Qty: 30 0RF ascorbic acid (vitamin C) [Vitamin C] 500 mg Tablet 500 mg PO DAILY 30 Days Qty: 30 0RF gabapentin 300 mg capsule 300 mg PO TID 30 Days Qty: 90 3RF albuterol sulfate 90 mcg/actuation HFA aerosol inhaler 2 inh inhalation Q4H PRN (Reason: Wheezing) 30 Days Qty: 1 0RF metformin 500 mg tablet extended release 24 hr 500 mg PO BID Qty: 60 0RF topiramate 50 mg tablet 50 mg PO BID 30 Days Qty: 60 0RF mirtazapine 7.5 mg tablet 7.5 mg PO BEDTIME 30 Days Qty: 30 0RF insulin glargine [Lantus Solostar U-100 Insulin] 100 unit/mL (3 mL) insulin pen 22 unit subcut QPM 30 Days Qty: 15 6RF cholecalciferol (vitamin D3) 50 mcg (2,000 unit) capsule 50 mcg PO DAILY 30 Days Qty: 30 0RF (DME) pen needle, diabetic 32 gauge x 5/32 needle See Rx Instructions subcut .MEDSUPPLY Qty: 50 0RF Rx Instructions: As directed (DME) lancets [TRUEplus Lancets] 33 gauge misc See Rx Instructions .ROUTE .MEDSUPPLY Qty: 100 0RF Rx Instructions: As directed test blood sugar 4 times a day Ozempic 1 mg/dose (4 mg/3 mL) pen injector 1 mg subcut QWEEK Qty: 3 4RF Rx Instructions: on wednesdays
[2022-12-09] MEDS: iohexoL 350 MG/ML 100 ML INFUS..BTL IV (17:32)
[2022-12-09 18:21] LABS: Prothrombin Time Whole Bld POC 12.6 sec (11.1-13.5); ~PT, ~INR - Anti Coag Clinic 1.1 (0.9-1.1)
[2022-12-09] MEDS: LORazepam 0.5 MG TABLET PO (18:25)
[2022-12-09 18:35] LABS: MANUAL DIFF FLAG NO
[2022-12-09 18:37] LABS: COVID-19 Test Negative (Negative); IDNOW Serial# BCCEAD1C
[2022-12-09 18:40] LABS: Alanine Aminotransferase 27 U/L (0-31); Albumin Level 3.6 g/dL (3.5-5.0); Alkaline Phosphatase 73 U/L (39-117); Anion Gap 14 (12-20); Aspartate Amino Transferase 21 U/L (5-31); Bilirubin Total 0.4 mg/dL (0.0-1.0); Blood Urea Nitrogen 21 mg/dL (9-16); Calcium 9.2 mg/dL (8.4-10.2); Carbon Dioxide 22 mmol/L (22-29); Chloride 107 mmol/L (96-108); Creatinine Clr Calc Pharmacy 51.2; Estimated Glomerular Filt Rate 47; Glucose Random 294 mg/dL (60-115); Magnesium 1.9 mg/dL (1.6-2.6); Potassium 4.7 mmol/L (3.3-5.1); Sodium 138 mmol/L (135-145); Total Protein 6.9 g/dL (6.5-8.0)
[2022-12-09 18:50] LABS: Basophils Percent Auto 0.2 % (0-2); Eosinophils Absolute Auto 0.1 X10*3/uL (0.0-0.4); Eosinophils Percent Auto 0.5 % (0-4); Hematocrit 40.6 % (37.0-47.0); Hemoglobin 13.4 g/dl (12.0-16.0); Imm Gran Abs Auto 0.03 X10*3/uL (0.00-0.03); Imm Gran Pct Auto 0.3 % (0.0-0.4); Lymphocytes Absolute Auto 2.3 X10*3/uL (1.2-4.9); Lymphocytes Percent Auto 23.8 % (20-40); Mean Corpuscular Hemoglobin 31.2 pg (27.0-33.0); Mean Corpuscular Volume 94.4 fL (80.0-98.0); Monocytes Absolute Auto 0.4 X10*3/uL (0.1-1.2); Monocytes Percent Auto 4.4 % (2-11); Neutrophils Absolute Auto 6.9 x10*3/uL (2.0-8.3); Neutrophils Percent Auto 70.8 % (45-73); Platelet Count 210 X10*3/uL (160-400); Red Cell Distribution Width 12.9 % (11.0-16.0); White Blood Count 9.7 X10*3/uL (4.8-10.8)
[2022-12-09 18:54] LABS: Acetaminophen LAB < 17 mcg/mL (<30); Ethanol < 10 mg/dL; Salicylate < 5.0 mg/dL (15-30)
[2022-12-09 19:11] LABS: Troponin-I High Sensitivity 3.3 ng/L (<3.5-17.0)
[2022-12-09 19:23] LABS: INTERNATIONAL NORM RATIO 1.1 (0.9-1.1); Prothrombin Time 12.1 SEC (10.0-13.1)
[2022-12-09 19:26] LABS: Partial Thromboplastin Time 27.9 SEC (26.0-36.4)
[2022-12-09 19:44] LABS: Stroke Lab Use COMPLETE
[2022-12-09 20:10] LABS: Appearance Urine Clear; Color Urine Yellow; Glucose Urine UA 500 mg/dL (Negative); Leukocyte Esterase Urine Negative (Negative); Nitrite Urine Positive (Negative); PH 6.5 (5.0-9.0); Specific Gravity - Urine >= 1.030 (1.005-1.025); UMIC TRIGGER UACC YES; Urine Blood Negative (Negative); Urine Ketones Negative (Negative); Urine Protein Negative (Neg-Trace)
[2022-12-09 20:20] LABS: Amphetamine Screen Urine Not Detected (Not Detect); Barbiturates, Urine Not Detected (Not Detect); Benzodiazepines Screen Urine Not Detected (Not Detect); Cannabinoid Screen Urine Not Detected (Not Detect); Cocaine Screen Urine Not Detected (Not Detect); Fentanyl, urine Not Detected (Not Detect); Opiate Screen Urine Not Detected (Not Detect); Phencyclidine Screen Urine Not Detected (Not Detect)
[2022-12-09 20:38] LABS: Bacteria Urine 4+ (None Seen); Calcium Oxalate Crystals Urine Present; RBC Urine 0-2 /HPF (0-2); UACC Culture Trigger YES
[2022-12-09 20:50] VITALS: BP 138/79; PULSE 79; RESP 18; TEMP 36.7; O2SAT 98
--- NOTE | 2022-12-09 21:24 | PHA.MEDREC ---
Pharmacy Consult ? Medication Reconciliation Pharmacy has completed the medication reconciliation. Spoke to patient to confirm meds.
--- NOTE | 2022-12-09 22:00 | PC.NURSE ---
This senior grant writer assumed care of this Pt at 1900. Pt A&Ox3, denies any pain. Pt denies SI/HI, denies auditory/visual hallucinations. Pt reports she feels safe while here. Pt ambulated to the BR with steady gait with one staff stand by.
[2022-12-10 02:24] VITALS: BP 130/77; PULSE 74; RESP 16; TEMP 36.6; O2SAT 98
[2022-12-10 02:33] LABS: Glucose, Whole Blood 254 mg/dL (60-115)
[2022-12-10 04:56] VITALS: BP 141/73; PULSE 68; RESP 18; TEMP 36.6; O2SAT 97
--- NOTE | 2022-12-10 04:57 | MHC.EDTECH ---
Patients vitals were taken,Patient requested a sandwich and gingerale. Patient is eating at this time. Call morales within reach
--- NOTE | 2022-12-10 06:12 | PC.NURSE ---
Pt awake, assisted with ambulation to bathroom, no acute distress at this time. Tech at bedside with this RN to document pt belongings including shay.
--- NOTE | 2022-12-10 06:32 | MHC.EDTECH ---
Patient was repositioned,Belonging list done, Patient has $395.00 dollars in shay,RN Marcia witnessed with this tech,Patient doesn't want to lock in safe and wants to keep with her at bedside. Call morales within reach
[2022-12-10 06:36] LABS: Glucose, Whole Blood 370 mg/dL (60-115)
[2022-12-10] MEDS: Acetaminophen 325 MG TABLET 650 MG PO (06:39)
--- NOTE | 2022-12-10 06:43 | PC.NURSE ---
Pt reports 6/10 headache, provider aware, new order given as documented.
[2022-12-10] MEDS: Insulin Lispro 100 UNIT/ML 3 ML VIAL SUBCUT (08:17)
[2022-12-10] MEDS: Cholecalciferol (Vitamin D3) 25 MCG TABLET 50 MCG PO (08:18)
[2022-12-10] MEDS: Escitalopram Oxalate 10 MG TABLET PO (08:18)
[2022-12-10] MEDS: Aspirin Enteric Coated 81 MG TABLET.DR PO (08:18)
[2022-12-10] MEDS: Loratadine 10 MG TABLET PO (08:18)
[2022-12-10] MEDS: Gabapentin 300 MG CAPSULE PO (08:18)
[2022-12-10] MEDS: Ascorbic Acid 500 MG TABLET PO (08:18)
[2022-12-10] MEDS: NaPROXEN 500 MG TABLET PO (08:19)
[2022-12-10] MEDS: Topiramate 25 MG TABLET 50 MG PO (08:19)
[2022-12-10 10:24] LABS: Glucose, Whole Blood 330 mg/dL (60-115)
--- NOTE | 2022-12-10 10:54 | PC.NURSE ---
ate breakfast, medicated as ordered, alert, nad, steady gait w assist x 1 to bathroom, spoke w CARE team, awaiting dispo
--- NOTE | 2022-12-10 10:56 | MHC.CARE ---
CARE Team responded to consult request to meet with this a 72 year-old woman who was here at [facility] for an appointment yesterday and afterwards had an acute onset of weakness and shaking followed by confusion. There was concern that if this was not a medical emergency patient possibly experiencing a pseudoseizure or a panic attack because she was recently discharged from a psychiatric unit. She had been hospitalized for depression in the context of losing both of her sons in the last few years. Patient was seen in the main ED room 9, medical physics professor used to communicate. She was awake, resting in bed, alert and oriented, maintained eye contact, was pleasant and easily engaged. Patient was unclear about what happened yesterday prior to arrival, said she was with her FURNACE OPERATOR at the appointment and became sick, not able to describe. She reported feeling fine since her discharge from a few weeks ago, not more depressed or anxious than usual, became tearful when discussing the of her sons. Patient denied suicidal ideation, plan or intention, stated, ?I would never do that and I am even afraid of needles.? In addition, she has not self harmed and denied having an hallucinations, did not appear psychotic or manic. No changes in sleep or appetite, is attending to ADLs, did appear clean and groomed with styled hair. Patient identified her daughter as her primary support, she does live in [place] but they speak every day and had just talked to her earlier this morning. Stated that her daughter is planning on moving her to [place] so she is not alone and patient said she very much wants to do this. Patient has 15 hrs of FURNACE OPERATOR care a week and attends appointments with providers. At this time patient does not appear to be having a psychiatric crisis and no further interventions are recommended. She does know how to access help and stated that she will call 911 or a family member if necessary. Disposition discussed with ED providers, Dr Kay and LOPEZ Arceo as well as supervisor road administrator, PRATIK Argueta.
== END 2022-12-10 13:17 | disposition home or self-care (01) ==
PROVIDERS: Physician Assistant; Emergency Provider Student in an Organized Health Care Education/Training Program; PCP Internal Medicine
DX: F41.9 Anxiety disorder, unspecified (principal); F32.A Depression, unspecified; N39.0 Urinary tract infection, site not specified; B96.20 Unspecified Escherichia coli [E. coli] as the cause of diseases classified elsewhere; R41.82 Altered mental status, unspecified; Z20.822 Contact with and (suspected) exposure to COVID-19; M79.7 Fibromyalgia; G81.94 Hemiplegia, unspecified affecting left nondominant side; E11.40 Type 2 diabetes mellitus with diabetic neuropathy, unspecified; I10 Essential (primary) hypertension; E78.5 Hyperlipidemia, unspecified; C34.90 Malignant neoplasm of unspecified part of unspecified bronchus or lung; Z79.4 Long term (current) use of insulin; Z79.899 Other long term (current) drug therapy; Z79.82 Long term (current) use of aspirin
CPT/HCPCS: 36415; 70450; 70496; 70498; 71045; 80053; 80143; 80179; 80307; 81001; 82550; 82947; 83735; 84484; 85025; 85610; 85730; 87086; 87088; 87186; 87635; 93005; 99285; Q9967

== ENCOUNTER → 2022-12-16 07:25 | Outpatient (BNVA) | payer OTHER, SELFPAY | PROVIDERS: PCP Internal Medicine; Visit Provider Psychiatry & Neurology Neurology | DX: M25.512 Pain in left shoulder (principal); M54.2 Cervicalgia; G54.0 Brachial plexus disorders; R20.0 Anesthesia of skin; R20.2 Paresthesia of skin | CPT/HCPCS: 99212 ==

== ENCOUNTER 2022-12-18 15:00 | Outpatient (RCR) | payer OTHER, SELFPAY ==
--- NOTE | 2022-11-21 11:16 | MHC.PT.EP ---
[facility] [place] Office [place] Office [place] Office [address] [place] Maldonado [address] [phone] F: [phone] F: [phone] F: [phone] F: [phone] Physical Therapy Plan of Care Date of Evaluation: Date of Surgery: Diagnosis: LEFT shoulder pain, neck pain, radiculopathy Assessment: Patient is a 72 y.o. who is referred to PT by Dr. Marly Dunn MD, with Dx of LEFT shoulder pain, cervicalgia, radiculopathy. It is unclear etiology of symptoms as she has Hx of L hemiparetic-like symptoms but no reports of CVA and intentional temor with L UE AROM of shoulder as well as absense of DTRs on L UE with costant radicular sxs. 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 She will benefit from skilled PT to work on ROM and strength and try to improve functional abilities but I feel she will receive the most benefit from pain management treatment and neurology and potential neurosurgery based on severity of symptoms. Patient has impairments including pain, limited ROM, weakness, paresthesia. 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 Patient will benefit from skilled PT to maintain current capabilities and avoid deterioration of condition. Frequency and Duration: The patient will be seen 2x/week for 4 weeks Short Term Goals: 2 weeks Patient demonstrates consistency and independence with HEP to self manage symptoms. Patient presents with increased cervical rotation AROM 45 degrees bilaterally to look over shoulders when walking to scan environment and reduce fall risk. Assisted Goals: 4 weeks Patient presents with increased L shoulder flexion 110 degrees to reach top of head to comb hair. Patient presents with increased L shoulder ER 40 degrees to help dress with less assist. [ End ] Treatment Plan: Modalities to reduce pain, spasms and effusion. Manual therapy to restore motion and function. Therapeutic exercise to improve strength and flexibility. Neuromuscular re-education for posture and balance. Therapeutic activities to return to functional activities of daily living. Electronically signed by: Cristo Chino, PT, DPT Please sign and return to therapist. Thank you for your referral.
--- NOTE | 2023-01-07 11:57 | MHC.PT.DC ---
[facility] [place] [facility] [place] [facility] [place] [facility] [address] Barrington Maldonado [address] [phone] F: [phone] F: [phone] F: [phone] F: [phone] Physical Therapy Discharge Report Diagnosis: LEFT shoulder pain, neck pain, radiculopathy Date of Surgery: Date of Evaluation: 11/20/22 Date of Discharge: 01/07/23 Treatments to Date: 3 Cancellations to Date: 2 No Shows to Date: 0 Discharge Status: Patient Elected to Stop Recommend MD Follow-up Discharge Summary: Patient called to reports she wants to discontinue PT due to pain. This is from her assessment from her last PT treatment, Her L shoulder capsule is very tight with resultant hypombility in all directions and c/o pain with difficulty relaxing L shoulder. She reports some relief with manual therapy that helps her to gain more ROM for exercises. With increased bicep curls or when her UE fatigues she tends to get tremors in arm/hand. I discuss with patient when she sees MD next to discuss her continued L sided sxs and neck pain. She does report having also seen neuology and all their tests have come back as normal. She is discharged from PT at this time, recommend MD FUP. Electronically signed by: Cristo Chino, PT, DPT Please sign and return to therapist. Thank you for your referral.
== END 2023-01-07 11:57 | disposition home or self-care (01) ==
LOC: HO.PT 15:00
PROVIDERS: Visit Provider Nurse Practitioner Family
DX: R20.0 Anesthesia of skin (principal); R20.2 Paresthesia of skin; M25.512 Pain in left shoulder; M54.2 Cervicalgia
CPT/HCPCS: 97110; 97140; 97163

== ENCOUNTER 2023-02-07 23:47 | Emergency (ER) | payer OTHER, SELFPAY ==
--- NOTE | ~2023-02-07 | CT_ITS ---
EXAMINATION: CT HEAD WITHOUT CONTRAST CLINICAL INFORMATION: Left sided weakness COMPARISON: 12/09/2022 TECHNIQUE: Contiguous axial imaging was performed from the skull base to vertex without intravenous administration of contrast. This CT examination was performed using dose optimization techniques as appropriate, variously including the following: *Automated exposure control *Adjustment of mA and/or kV according to patient size (this includes techniques or standardized protocols for targeted exams where dose is matched to indication/reason for exam; i.e. extremities or head) *Use of iterative reconstruction technique DLP: 700 mGy-cm FINDINGS: There is no evidence of acute intracranial hemorrhage or territorial infarction. No abnormal mass effect or midline shift is seen. Browning to white matter differentiation is well preserved. No extra-axial fluid collections are identified. No hydrocephalus. No significant volume loss. Patchy periventricular and deep white matter hypoattenuation is consistent with mild small vessel ischemic changes. No acute osseous or soft tissue abnormality. The mastoid air cells and visualized portions of the paranasal sinuses are well aerated. CT/CT head/brain wo IV con IMPRESSION: No acute intracranial pathology.
--- NOTE | 2023-02-07 23:54 | ED_ITS ---
HPI - Neuro Symptoms/Deficit General Chief Complaint: Weakness Stated Complaint: immobility Time Seen by Provider: 02/07/23 23:54 Source: patient and EMS Mode of arrival: EMS History of Present Illness HPI Narrative: Patient with anxiety depression chronic left shoulder pain with tingling sensation on gabapentin and Flexeril seen by Neurology also history of left Polanco's palsy comes by EMS for pain in the left arm similar that in the past unable to get up from the bed patient does follow with pain clinic has a chronic weakness to the left hand says that weakness is new but per records has chronic weakness patient very poor historian Related Data Home Medications Medication Instructions Recorded Confirmed cetirizine 10 mg tablet 10 mg PO QAM 12/09/22 12/09/22 insulin aspart U-100 100 unit/mL 1 sliding scale dose subcut TIDAC 12/09/22 12/09/22 (3 mL) subcutaneous pen (Novolog FlexPen U-100 Insulin aspart) insulin glargine 100 unit/mL (3 30 unit subcut BEDTIME 12/09/22 12/09/22 mL) subcutaneous pen (Lantus Solostar U-100 Insulin) meloxicam 15 mg tablet 15 mg PO DAILY 12/09/22 12/09/22 semaglutide 1 mg/dose (4 mg/3 mL) 1 mg subcut WE@0900 12/09/22 12/09/22 subcutaneous pen injector (Ozempic) acetaminophen 650 mg 650 mg PO Q6H PRN pain 12/16/22 tablet,extended release lisinopril 20 mg tablet 20 mg PO DAILY 12/16/22 mirtazapine 15 mg tablet 15 mg PO BEDTIME 12/16/22 trazodone 50 mg tablet 50 mg PO BEDTIME 12/16/22 white petrolatum-mineral oil 83 ophthalmic (eye) DAILY PRN dry eyes 12/16/22 %-15 % eye ointment (Lubrifresh PM) Previous Rx's Medication Instructions Recorded albuterol sulfate 90 mcg/actuation 2 inh inhalation Q4H PRN Wheezing 11/19/22 aerosol inhaler 30 days #1 g ascorbic acid (vitamin C) 500 mg 500 mg PO DAILY 30 days #30 tabs 11/19/22 tablet (Vitamin C) aspirin 81 mg tablet,delayed 81 mg PO DAILY 30 days #30 tabs 11/19/22 release atorvastatin 20 mg tablet 20 mg PO BEDTIME #30 tabs 11/19/22 blood sugar diagnostic (FreeStyle #150 ea 11/19/22 Lite Strips) cholecalciferol (vitamin D3) 50 50 mcg PO DAILY 30 days #30 caps 11/19/22 mcg (2,000 unit) capsule clonazepam 0.5 mg tablet 0.5 mg PO DAILY PRN Anxiety 30 11/19/22 days #30 tabs escitalopram oxalate 10 mg tablet 10 mg PO DAILY 30 days #30 tabs 11/19/22 lancets 33 gauge (TRUEplus Lancets) #100 ea 11/19/22 metformin 500 mg tablet,extended 500 mg PO BID #60 tabs 11/19/22 release 24 hr mirtazapine 7.5 mg tablet 7.5 mg PO BEDTIME 30 days #30 tabs 11/19/22 olanzapine 2.5 mg tablet 2.5 mg PO BEDTIME 30 days #30 tabs 11/19/22 pen needle, diabetic 32 gauge x #50 ea 11/19/22 simethicone 80 mg chewable tablet 80 mg PO TID PRN gas 30 days #30 11/19/22 (Gas Relief (simethicone)) tabs topiramate 50 mg tablet 50 mg PO BID 30 days #60 tabs 11/19/22 cefuroxime axetil 250 mg tablet 250 mg PO BID 7 days #14 tabs 12/10/22 cyclobenzaprine 5 mg tablet 5 mg PO TID PRN muscle spasms 30 12/16/22 days #90 tabs gabapentin 300 mg capsule 300 mg PO TID 30 days #90 caps 12/16/22 Allergies Allergy/AdvReac Type Severity Reaction Status Date / Time COVID-19 vacc, bv (Orig, Allergy Severe Swelling Verified 12/16/22 07:51 Omicron BA.4/5) (Pfizer) [From Pfizer COVID Bival(12y up)(PF)] homosalate [From Coppertone] Allergy Intermediate RASH, itchy Verified 12/16/22 07:51 octinoxate [From Coppertone] Allergy Intermediate RASH, itchy Verified 12/16/22 07:51 oxybenzone [From Coppertone] Allergy Intermediate RASH, itchy Verified 12/16/22 07:51 pioglitazone Allergy Unknown Unknown Verified 12/16/22 09:09 pollen extracts Allergy Unknown Unknown Unverified 12/16/22 07:51 diovan Allergy Unknown rash Uncoded 12/16/22 07:51 Review of Systems Review of Systems: Yes all other systems are reviewed and are negative [facility] Past Medical History Medical History Polanco's palsy Colon cancer screening Depression Diabetes type 2, uncontrolled Diabetic polyneuropathy associated with type 2 diabetes mellitus Dyslipidemia Fibromyalgia Hypertension Left shoulder pain halfway (current) use of insulin Lung cancer Neck pain Numbness and tingling in left arm Obesity (BMI 30-39.9) Thoracic outlet syndrome Vitamin D deficiency Surgical History H/O: hysterectomy Family History Family History Father Osteoporosis Mother Stroke Cancer Social History Social History Household Members: None Housing: Apartment Do you presently have visiting nurse or other home services: Yes (pt reports having a BLUEPRINT CLERK) Unable to assess alcohol history related to: Unable to respond Alcohol intake: never Patient Tobacco Use Status: Never used Tobacco Smoked in Last 30 Days: No Use of substances other than those prescribed or required for medical reasons: No Advance Directives: No Advance Directives Information Provided: Yes service: No Sexual orientation: Straight/Heterosexual Physical Exam Vital Signs: Vital Signs: Last Vital Signs Temp 98.3 F 02/08/23 00:13 Pulse 94 02/08/23 00:13 Resp 13 02/08/23 00:13 BP 134/68 02/08/23 00:13 Pulse Ox 99 02/08/23 00:13 O2 Del Method Room Air 02/08/23 00:13 BMI result Body Mass Index 37.8 Appearance: Alert. Oriented X3. No acute distress. Eyes: PERRLA, No Nystagmus ENT: Pharynx normal. Oral Mucosa moist Neck: Normal inspection. Neck supple. CVS: Normal heart rate and rhythm. Pulses normal. Respiratory: No respiratory distress. Equal air entry bilateral, no wheezing/rales/rhonchi Abdomen: Soft and nontender. Bowel sounds are present, no mass palpable, no CVA tenderness Skin: Skin warm and dry. Normal skin color. Normal skin turgor. Extremities: No lower extremity edema. No calf tenderness Neuro: Oriented X 3. 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 No sensory deficit.No cerebellar signs , residual left Polanco's was Medications Administered Discontinued Medications Generic Name Dose Route Start Last Admin Trade Name Freq PRN Reason Stop Dose Admin Oxycodone HCl 5 mg 02/08/23 00:20 02/08/23 00:27 Oxycodone Hcl Immed Release 5 Mg Tablet PO 02/08/23 00:21 5 mg ONCE ONE Administration Medical Decision Making Medical Decision Making [facility] Narrative: Patient has stable labs chronic pain chronic weakness CT scan of the head was done which was negative discharge patient home advised to continue her pain medications follow with pain clinic and PCP Differential Diagnosis Differential Diagnoses: The differential diagnosis associated with the presentation includes CVA/neuropathy/chronic pain syndrome Lab Data [facility] Lab Attestation statement: I reviewed the patient's lab results. 02/08/23 02:28 02/08/23 02:28 Labs: Lab Results 02/08/23 02/08/23 Range/Units 02:28 02:28 WBC 10.3 (4.8-10.8) X10*3/uL RBC 4.30 (4.20-5.50) X10*6/uL Hgb 13.4 (12.0-16.0) g/dl Hct 40.3 (37.0-47.0) % MCV 93.7 (80.0-98.0) fL MCH 31.2 (27.0-33.0) pg MCHC 33.3 (31.0-35.0) g/dl RDW 12.7 (11.0-16.0) % Plt Count 224 (160-400) X10*3/uL MPV 11.5 (9.4-12.3) fL Immature Gran % (Auto) 0.3 (0.0-0.4) % Neut % (Auto) 63.7 (45-73) % Lymph % (Auto) 28.7 (20-40) % Creek % (Auto) 5.6 (2-11) % Eos % (Auto) 1.4 (0-4) % Baso % (Auto) 0.3 (0-2) % Lymph # (Auto) 3.0 (1.2-4.9) X10*3/uL Creek # (Auto) 0.6 (0.1-1.2) X10*3/uL Eos # (Auto) 0.1 (0.0-0.4) X10*3/uL Baso # (Auto) 0.0 (0.0-0.2) X10*3/uL Abs Immat Gran (auto) 0.03 (0.00-0.03) X10*3/uL Absolute Neuts (auto) 6.6 (2.0-8.3) x10*3/uL Absolute Nucleated RBC 0.000 (0.0-0.012) X10*3/uL Nucleated RBC % (auto) 0.0 (0.0-0.2) /100WBC Sodium 141 (135-145) mmol/L Potassium 4.2 (3.3-5.1) mmol/L Chloride 107 (96-108) mmol/L Carbon Dioxide 21 L (22-29) mmol/L Anion Gap 17 (12-20) BUN 14 (9-16) mg/dL Creatinine 1.00 (0.5-1.4) mg/dL Estim Creat Clear Calc 60.1 Estimated GFR 55 Random Glucose 253 H (60-115) mg/dL Calcium 9.6 (8.4-10.2) mg/dL Magnesium 1.9 (1.6-2.6) mg/dL Total Bilirubin 0.5 (0.0-1.0) mg/dL AST 17 (5-31) U/L ALT 22 (0-31) U/L Alkaline Phosphatase 86 (39-117) U/L Total Protein 7.4 (6.5-8.0) g/dL Albumin 3.7 (3.5-5.0) g/dL NIH Stroke Scale Internal: Initial- Upon Arrival Level of Consciousness: Alert Level of Consciousness Questions: Answers both questions correctly Level of Consciousness Commands: Performs both tasks correctly Best Gaze: Normal Visual: No visual loss Facial Palsy: Minor paralyis Motor Arm (Right): No drift Motor Arm (Left): No drift Motor Leg (Right): No drift Motor Leg (Left): No drift Limb Ataxia: Absent Sensory: Normal Best Language: No aphasia Dysarthia: Normal Extinction and Inattention: No abnormality Score: 1 Discharge Plan Discharge Clinical Impression: Arm pain, left Patient Disposition: Home, Self-Care Instructions: Arm Pain (ED) Additional Instructions: You do not have any finding of the stroke you have chronic pain continue pain medication follow with pain clinic Prescriptions: No Action olanzapine 2.5 mg Tablet 2.5 mg PO BEDTIME 30 Days Qty: 30 0RF simethicone [Gas Relief (simethicone)] 80 mg Tablet,Chewable 80 mg PO TID PRN (Reason: gas) 30 Days Qty: 30 0RF escitalopram oxalate 10 mg Tablet 10 mg PO DAILY 30 Days Qty: 30 0RF atorvastatin 20 mg tablet 20 mg PO BEDTIME Qty: 30 11RF clonazepam 0.5 mg tablet 0.5 mg PO DAILY PRN (Reason: Anxiety) 30 Days Qty: 30 0RF (DME) FreeStyle Lite Strips Strip See Rx Instructions .ROUTE .MEDSUPPLY Qty: 150 11RF Rx Instructions: 4 times a day aspirin 81 mg tablet,delayed release (DR/EC) 81 mg PO DAILY 30 Days Qty: 30 0RF ascorbic acid (vitamin C) [Vitamin C] 500 mg Tablet 500 mg PO DAILY 30 Days Qty: 30 0RF albuterol sulfate 90 mcg/actuation HFA aerosol inhaler 2 inh inhalation Q4H PRN (Reason: Wheezing) 30 Days Qty: 1 0RF metformin 500 mg tablet extended release 24 hr 500 mg PO BID Qty: 60 0RF topiramate 50 mg tablet 50 mg PO BID 30 Days Qty: 60 0RF mirtazapine 7.5 mg tablet 7.5 mg PO BEDTIME 30 Days Qty: 30 0RF cholecalciferol (vitamin D3) 50 mcg (2,000 unit) capsule 50 mcg PO DAILY 30 Days Qty: 30 0RF (DME) pen needle, diabetic 32 gauge x 5/32 needle See Rx Instructions subcut .MEDSUPPLY Qty: 50 0RF Rx Instructions: As directed (DME) lancets [TRUEplus Lancets] 33 gauge misc See Rx Instructions .ROUTE .MEDSUPPLY Qty: 100 0RF Rx Instructions: As directed test blood sugar 4 times a day cetirizine 10 mg tablet 10 mg PO QAM meloxicam 15 mg tablet 15 mg PO DAILY insulin aspart U-100 [Novolog FlexPen U-100 Insulin] 100 unit/mL (3 mL) insul in pen 1 sliding scale dose subcut TIDAC insulin glargine [Lantus Solostar U-100 Insulin] 100 unit/mL (3 mL) insulin pen 30 unit subcut BEDTIME Ozempic 1 mg/dose (4 mg/3 mL) pen injector 1 mg subcut WE@0900 Rx Instructions: on wednesdays cefuroxime axetil 250 mg tablet 250 mg PO BID 7 Days Qty: 14 0RF gabapentin 300 mg capsule 300 mg PO TID 30 Days Qty: 90 3RF cyclobenzaprine 5 mg tablet 5 mg PO TID PRN (Reason: muscle spasms) 30 Days Qty: 90 3RF acetaminophen 650 mg tablet extended release 650 mg PO Q6H PRN (Reason: pain) lisinopril 20 mg tablet 20 mg PO DAILY mirtazapine 15 mg tablet 15 mg PO BEDTIME trazodone 50 mg tablet 50 mg PO BEDTIME Lubrifresh PM 83-15 % ointment ophthalmic (eye) DAILY PRN (Reason: dry eyes)
[2023-02-08 00:13] VITALS: BP 128/70; BP 134/68; PULSE 94; RESP 13; TEMP 36.8; O2SAT 97; O2SAT 99; BMI 37.8
[2023-02-08] MEDS: oxyCODONE HCl Immed Release 5 MG TABLET PO (00:27)
[2023-02-08 02:52] LABS: MANUAL DIFF FLAG NO
[2023-02-08 02:54] LABS: Basophils Percent Auto 0.3 % (0-2); Eosinophils Absolute Auto 0.1 X10*3/uL (0.0-0.4); Eosinophils Percent Auto 1.4 % (0-4); Hematocrit 40.3 % (37.0-47.0); Hemoglobin 13.4 g/dl (12.0-16.0); Imm Gran Abs Auto 0.03 X10*3/uL (0.00-0.03); Imm Gran Pct Auto 0.3 % (0.0-0.4); Lymphocytes Percent Auto 28.7 % (20-40); Mean Corpuscular HGB Conc 33.3 g/dl (31.0-35.0); Mean Corpuscular Hemoglobin 31.2 pg (27.0-33.0); Mean Corpuscular Volume 93.7 fL (80.0-98.0); Mean Platelet Volume 11.5 fL (9.4-12.3); Monocytes Absolute Auto 0.6 X10*3/uL (0.1-1.2); Monocytes Percent Auto 5.6 % (2-11); Neutrophils Absolute Auto 6.6 x10*3/uL (2.0-8.3); Neutrophils Percent Auto 63.7 % (45-73); Platelet Count 224 X10*3/uL (160-400); Red Cell Distribution Width 12.7 % (11.0-16.0); White Blood Count 10.3 X10*3/uL (4.8-10.8)
[2023-02-08 03:08] LABS: Alanine Aminotransferase 22 U/L (0-31); Albumin Level 3.7 g/dL (3.5-5.0); Alkaline Phosphatase 86 U/L (39-117); Anion Gap 17 (12-20); Aspartate Amino Transferase 17 U/L (5-31); Bilirubin Total 0.5 mg/dL (0.0-1.0); Blood Urea Nitrogen 14 mg/dL (9-16); Calcium 9.6 mg/dL (8.4-10.2); Carbon Dioxide 21 mmol/L (22-29); Chloride 107 mmol/L (96-108); Creatinine Clr Calc Pharmacy 60.1; Estimated Glomerular Filt Rate 55; Glucose Random 253 mg/dL (60-115); Magnesium 1.9 mg/dL (1.6-2.6); Potassium 4.2 mmol/L (3.3-5.1); Sodium 141 mmol/L (135-145); Total Protein 7.4 g/dL (6.5-8.0)
--- NOTE | 2023-02-08 03:59 | MHC.EDTECH ---
Call out to dior at [phone] to book transport for pt back home, estimated eta given was [phone]
--- NOTE | 2023-02-08 04:03 | PC.NURSE ---
pt oob with 2 max assist, unable to ambulate Dr. alcala
== END 2023-02-08 06:38 | disposition home or self-care (01) ==
PROVIDERS: Emergency Provider Internal Medicine; PCP Internal Medicine
DX: M79.602 Pain in left arm (principal); R51.9 Headache, unspecified; R29.701 NIHSS score 1; E11.9 Type 2 diabetes mellitus without complications; Z79.899 Other long term (current) drug therapy; Z79.4 Long term (current) use of insulin
CPT/HCPCS: 36415; 70450; 80053; 83735; 85025; 99284

== ENCOUNTER 2023-02-13 13:44 | Emergency (ER) | payer OTHER, SELFPAY ==
[2023-02-13 13:54] VITALS: BP 186/32; PULSE 97; O2SAT 98
--- NOTE | 2023-02-13 13:54 | MHC.CARE ---
[facility] called and reported Pt was seen in the community, however has a history of UTI. [facility] requesting full medical clearance before disposition can be made.
[2023-02-13 13:57] VITALS: BP 147/73; PULSE 94; RESP 18; TEMP 36.4; O2SAT 100; BMI 35.8
--- NOTE | 2023-02-13 15:21 | PC.NURSE ---
patient resting in bed, calm and cooperative. patient no longer crying. respirations equal and unlabored
[2023-02-13 15:26] LABS: Appearance Urine Cloudy; Color Urine Yellow; Glucose Urine UA 500 mg/dL (Negative); Leukocyte Esterase Urine Trace (Negative); Nitrite Urine Positive (Negative); PH 5.5 (5.0-9.0); Specific Gravity - Urine 1.025 (1.005-1.025); UMIC TRIGGER UACC YES; Urine Blood Negative (Negative); Urine Ketones Trace mg/dL (Negative); Urine Protein 30 (1+) mg/dL (Neg-Trace)
[2023-02-13 15:38] LABS: Amphetamine Screen Urine Not Detected (Not Detect); Barbiturates, Urine Not Detected (Not Detect); Benzodiazepines Screen Urine Not Detected (Not Detect); Cannabinoid Screen Urine POSITIVE (Not Detect); Cocaine Screen Urine Not Detected (Not Detect); Fentanyl, urine Not Detected (Not Detect); Opiate Screen Urine Not Detected (Not Detect); Phencyclidine Screen Urine Not Detected (Not Detect)
[2023-02-13 15:42] LABS: MANUAL DIFF FLAG NO
[2023-02-13 15:49] LABS: Bacteria Urine 4+ (None Seen); Calcium Oxalate Crystals Urine Present; Hyaline Casts Urine 0-2 /LPF (0-2); RBC Urine 0-2 /HPF (0-2); UACC Culture Trigger YES; WBC Urine 21-50 /HPF (0-5)
[2023-02-13 15:53] LABS: Basophils Percent Auto 0.3 % (0-2); Eosinophils Absolute Auto 0.1 X10*3/uL (0.0-0.4); Eosinophils Percent Auto 1.5 % (0-4); Hematocrit 38.1 % (37.0-47.0); Hemoglobin 12.6 g/dl (12.0-16.0); Imm Gran Abs Auto 0.03 X10*3/uL (0.00-0.03); Imm Gran Pct Auto 0.4 % (0.0-0.4); Lymphocytes Absolute Auto 3.1 X10*3/uL (1.2-4.9); Lymphocytes Percent Auto 38.6 % (20-40); Mean Corpuscular HGB Conc 33.1 g/dl (31.0-35.0); Mean Corpuscular Hemoglobin 31.1 pg (27.0-33.0); Mean Corpuscular Volume 94.1 fL (80.0-98.0); Mean Platelet Volume 11.6 fL (9.4-12.3); Monocytes Absolute Auto 0.6 X10*3/uL (0.1-1.2); Monocytes Percent Auto 7.2 % (2-11); Neutrophils Absolute Auto 4.2 x10*3/uL (2.0-8.3); Platelet Count 226 X10*3/uL (160-400); Red Blood Count 4.05 X10*6/uL (4.20-5.50); Red Cell Distribution Width 12.7 % (11.0-16.0)
[2023-02-13 15:58] LABS: Alanine Aminotransferase 20 U/L (0-31); Albumin Level 3.7 g/dL (3.5-5.0); Alkaline Phosphatase 73 U/L (39-117); Anion Gap 10 (12-20); Aspartate Amino Transferase 20 U/L (5-31); Bilirubin Total 0.4 mg/dL (0.0-1.0); Blood Urea Nitrogen 15 mg/dL (9-16); Calcium 10.1 mg/dL (8.4-10.2); Carbon Dioxide 26 mmol/L (22-29); Chloride 110 mmol/L (96-108); Creatinine Clr Calc Pharmacy 59.5; Estimated Glomerular Filt Rate 56; Glucose Random 170 mg/dL (60-115); Potassium 4.1 mmol/L (3.3-5.1); Sodium 142 mmol/L (135-145); Total Protein 7.5 g/dL (6.5-8.0)
[2023-02-13 16:00] VITALS: BP 152/81; PULSE 82; RESP 14; TEMP 36.4; O2SAT 96
--- NOTE | 2023-02-13 17:06 | ED_ITS ---
HPI - General Adult General Chief complaint: Altered Mental Status Stated complaint: ?UTI PER EMS Time Seen by Provider: 02/13/23 17:04 Source: patient, EMS and human performance consultant Mode of arrival: EMS Limitations: language barrier History of Present Illness HPI narrative: Patient is a 72 year old assigned female at with a history of MDD, HTN, sciatica, and fibromyalgia presenting to the emergency department today with increased depression. Patient was sent in by [facility] who wanted the patient to be deemed medically cleared before they would evaluate her. Patient states that she wants to go to be with her son. Patient denies any dizziness, lightheadedness, abdominal pain, nausea, vomiting, fever, chills, blurry vision, double vision, loss of vision, chest pain, difficulty breathing, shortness of breath, back pain, night sweats, pain with urination, increased urinary frequency, increased urinary urgency, blood in her urine or stool, syncope or a near syncopal episode, recent trauma or falls, bowel incontinence, bladder incontinence, bowel retention, bladder retention, or any other complaints at this time. Onset (ago): day(s) Relieving factors: none Exacerbating factors: none Associated symptoms: denies other symptoms Treatments prior to arrival: none Related Data Home Medications Medication Instructions Recorded Confirmed cetirizine 10 mg tablet 10 mg PO DAILY 12/09/22 12/09/22 insulin aspart U-100 100 unit/mL 1 sliding scale dose subcut TIDAC 12/09/22 12/09/22 (3 mL) subcutaneous pen (Novolog FlexPen U-100 Insulin aspart) insulin glargine 100 unit/mL (3 30 unit subcut BEDTIME 12/09/22 12/09/22 mL) subcutaneous pen (Lantus Solostar U-100 Insulin) meloxicam 15 mg tablet 15 mg PO DAILY 12/09/22 12/09/22 semaglutide 1 mg/dose (4 mg/3 mL) 1 mg subcut WE@0900 12/09/22 12/09/22 subcutaneous pen injector (Ozempic) acetaminophen 650 mg 650 mg PO Q6H PRN pain 12/16/22 tablet,extended release mirtazapine 15 mg tablet 15 mg PO BEDTIME 12/16/22 trazodone 50 mg tablet 50 mg PO BEDTIME PRN Insomnia 12/16/22 white petrolatum-mineral oil 83 ophthalmic (eye) DAILY PRN dry eyes 12/16/22 %-15 % eye ointment (Lubrifresh PM) citalopram 20 mg tablet 20 mg PO DAILY 02/13/23 peg [id number] 1 1 drp ophthalmic (eye) QID PRN Dry 02/13/23 02/13/23 %-0.2 %-0.2 % eye drops (Dry Eye Eyes Relief) Previous Rx's Medication Instructions Recorded albuterol sulfate 90 mcg/actuation 2 inh inhalation Q4H PRN Wheezing 11/19/22 aerosol inhaler 30 days #1 g ascorbic acid (vitamin C) 500 mg 500 mg PO DAILY 30 days #30 tabs 11/19/22 tablet (Vitamin C) aspirin 81 mg tablet,delayed 81 mg PO DAILY 30 days #30 tabs 11/19/22 release atorvastatin 20 mg tablet 20 mg PO BEDTIME #30 tabs 11/19/22 blood sugar diagnostic (FreeStyle #150 ea 11/19/22 Lite Strips) cholecalciferol (vitamin D3) 50 50 mcg PO DAILY 30 days #30 caps 11/19/22 mcg (2,000 unit) capsule clonazepam 0.5 mg tablet 0.5 mg PO DAILY PRN Anxiety 30 11/19/22 days #30 tabs escitalopram oxalate 10 mg tablet 10 mg PO DAILY 30 days #30 tabs 11/19/22 lancets 33 gauge (TRUEplus Lancets) #100 ea 11/19/22 metformin 500 mg tablet,extended 500 mg PO BID #60 tabs 11/19/22 release 24 hr olanzapine 2.5 mg tablet 2.5 mg PO BEDTIME 30 days #30 tabs 11/19/22 pen needle, diabetic 32 gauge x #50 ea 11/19/22 simethicone 80 mg chewable tablet 80 mg PO TID PRN gas 30 days #30 11/19/22 (Gas Relief (simethicone)) tabs topiramate 50 mg tablet 50 mg PO BID 30 days #60 tabs 11/19/22 cyclobenzaprine 5 mg tablet 5 mg PO TID PRN muscle spasms 30 12/16/22 days #90 tabs gabapentin 300 mg capsule 300 mg PO TID 30 days #90 caps 12/16/22 Allergies Allergy/AdvReac Type Severity Reaction Status Date / Time COVID-19 vacc, bv (Orig, Allergy Severe Swelling Verified 12/16/22 07:51 Omicron BA.4/5) (Pfizer) [From Pfizer COVID Bival(12y up)(PF)] homosalate [From Coppertone] Allergy Intermediate RASH, itchy Verified 12/16/22 07:51 octinoxate [From Coppertone] Allergy Intermediate RASH, itchy Verified 12/16/22 07:51 oxybenzone [From Coppertone] Allergy Intermediate RASH, itchy Verified 12/16/22 07:51 pioglitazone Allergy Unknown Unknown Verified 12/16/22 09:09 pollen extracts Allergy Unknown Unknown Unverified 12/16/22 07:51 diovan Allergy Unknown rash Uncoded 12/16/22 07:51 Review of Systems Constitutional: Constitutional: Reports no additional constitutional complaints, Denies chills, Denies fever(s) and Denies night sweats Eyes: Eyes: Reports no additional eye complaints, Denies blurry vision, Denies change in vision, Denies diplopia, Denies eye discharge, Denies loss of vision and Denies eye pain ENT: Denies dizziness Cardiovascular: Cardiovascular: Reports no additional cardiovascular complaint s, Denies chest pain, Denies lightheadedness, Denies Loss of Consciousness and Denies dyspnea Respiratory: Respiratory: Reports no additional respiratory complaints and Denies dyspnea Gastrointestinal: Gastrointestinal: Reports no additional gastrointestinal complaints, Denies abdominal pain, Denies melena, Denies hematochezia, Denies change in bowel habits and Denies change in stool character Genitourinary: Genitourinary: Denies hematuria, Denies urinary frequency, Denies dysuria, Denies urinary incontinence, Denies urinary hesitancy and Denies urinary urgency Musculoskeletal: Musculoskeletal: Reports no additional musculoskeletal complaints, Denies numbness and Denies tingling Neurologic: Denies dizziness, Denies loss of vision, Denies numbness and Denies tingling Psychiatric: Psychiatric: Reports suicidal ideation (per [facility]) Endocrine: Endocrine: Reports no additional endocrine complaints Hematologic/Lymphatic: Hematologic/Lymphatic: Reports no additional hematologic/lymphatic complaints Allergic/Immunologic: Allergic/Immunologic: Reports no additional allergic/immunologic complaints PMFSH Past Medical History Attestation statement: The following information was validated with the patient. 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) use of insulin Lung cancer Microscopic hematuria Neck pain Numbness and tingling in left arm Obesity (BMI 30-39.9) Thoracic outlet syndrome Vitamin D deficiency Surgical History H/O: hysterectomy Family History Family History Father Osteoporosis Mother Stroke Cancer Social History Social History Household Members: None Housing: Apartment Do you presently have visiting nurse or other home services: Yes (pt reports having a PC TECHNICIAN) Unable to assess alcohol history related to: Unable to respond Alcohol intake: never Patient Tobacco Use Status: Never used Tobacco Smoked in Last 30 Days: No Advance Directives: No Advance Directives Information Provided: No service: No Sexual orientation: Straight/Heterosexual Physical Exam ED Vital Signs: Vital Signs - 24 hr 02/13/23 13:57 02/13/23 16:00 02/13/23 17:30 Temperature 97.6 F 97.5 F 97.7 F Pulse Rate 94 82 84 Respiratory Rate 18 14 16 Blood Pressure 147/73 H 152/81 H 155/83 H Pulse Oximetry 100 96 99 Oxygen Delivery Method Room Air Room Air Room Air BMI result Body Mass Index 35.8 Const General: cooperative, no acute distress, alert and awake Nutritional Appearance: well nourished Orientation/consciousness: patient oriented x3 Limitations: no limitations [facility] Head: Yes normal to inspection and Yes atraumatic Ears: hearing grossly normal bilaterally and external ears normal General nose exam: Normal external nose present, no nasal discharge noted and no epistaxis Face and sinus: Yes normal facial exam, No abrasion and No laceration Mouth: Normal oral and palatal mucosa present, no drooling and no muffled voice Eyes General: appearance normal, both eyes and all related structures Periorbital: periorbital findings normal Eyelids: Yes eyelids normal Conjunctivae: conjunctivae normal Pupils: Equal, round and reactive pupils present EOM: EOMs intact bilaterally Neck Neck: Yes normal visual inspection, Yes full ROM and Yes no lymphadenopathy Chest Chest palpation & inspection: normal inspection of the chest Resp Effort & Inspection: normal respiratory effort and able to speak in complete sentences GI Inspection: Yes normal to inspection Palpation (GI): Soft to palpation, not firm, nontender and no guarding Neuro General: patient oriented x3 and moves all extremities Cranial nerves: Yes Equal, round and reactive pupils present Cognition (Neuro): normal cognition Motor exam (neuro): 5/5 motor strength present throughout Sensory Exam: Normal double simultaneous stimulation for sensation Coordination: [id number] test normal Extrem General: Yes normal to inspection, Yes full ROM and Yes capillary refill normal Psych Appearance: grossly normal Mental Status: mental status grossly normal Affect: Sad affect present Attitude: cooperative Thought process: Normal thought process present Thought content: Normal thought content present Insight: Good insight present (Psych) Medications Administered Generic Name Dose Route Start Last Admin Trade Name Freq PRN Reason Stop Dose Admin Cefuroxime Axetil 250 mg 02/13/23 21:00 02/13/23 17:25 Cefuroxime Axetil 250 Mg Tablet PO 02/20/23 23:00 250 mg BID IDANA Administration Medical Decision Making Medical Decision Making MDM Narrative: Patient is a 72 year old assigned female at with a history of MDD, HTN, and DM presenting to the emergency department today with vague suicidal ideation. Patient's physical exam showed an intermittently tearful individual but was otherwise unremarkable. Patient's blood work was unremarkable. Patient's urine showed evidence of an acute infection. Patient's EKG was unremarkable. I explained my physical exam findings as well as all test results to the patient. I answered all questions asked by the patient. Patient was ordered PO Ceftin for her UTI. [facility] evaluated the patient and determined that she should be an inpatient bed search. At this time, we do not have a female inpatient bed. Patient will remain in the department as the bedsearch continues. Differential Diagnosis Differential Diagnoses: The differential diagnosis associated with the presentation includes SI Depression UTI Admission/Observation Consideration of admission/observation: Escalation of care including admission/observation considered Patient will be admitted to an inpatient psychiatric unit. Consult Healthcare Provider Management of the patient was discussed with: Behavioral Health Provider (as noted in the MDM portion of this note. ) Lab Data [facility] Lab Attestation statement: I reviewed the patient's lab results. My interpretation of these studies and their corresponding values is that they are grossly normal with the exception of an infected urine. 02/13/23 15:38 02/13/23 15:38 Labs: Lab Results 02/13/23 02/13/23 02/13/23 Range/Units 15:19 15:19 15:38 WBC 8.0 (4.8-10.8) X10*3/uL RBC 4.05 L (4.20-5.50) X10*6/uL Hgb 12.6 (12.0-16.0) g/dl Hct 38.1 (37.0-47.0) % MCV 94.1 (80.0-98.0) fL MCH 31.1 (27.0-33.0) pg MCHC 33.1 (31.0-35.0) g/dl RDW 12.7 (11.0-16.0) % Plt Count 226 (160-400) X10*3/uL MPV 11.6 (9.4-12.3) fL Immature Gran % (Auto) 0.4 (0.0-0.4) % Neut % (Auto) 52.0 (45-73) % Lymph % (Auto) 38.6 (20-40) % [place] % (Auto) 7.2 (2-11) % Eos % (Auto) 1.5 (0-4) % Baso % (Auto) 0.3 (0-2) % Lymph # (Auto) 3.1 (1.2-4.9) X10*3/uL [place] # (Auto) 0.6 (0.1-1.2) X10*3/uL Eos # (Auto) 0.1 (0.0-0.4) X10*3/uL Baso # (Auto) 0.0 (0.0-0.2) X10*3/uL Abs Immat Gran (auto) 0.03 (0.00-0.03) X10*3/uL Absolute Neuts (auto) 4.2 (2.0-8.3) x10*3/uL Absolute Nucleated RBC 0.000 (0.0-0.012) X10*3/uL Nucleated RBC % (auto) 0.0 (0.0-0.2) /100WBC Sodium (135-145) mmol/L Potassium (3.3-5.1) mmol/L Chloride (96-108) mmol/L Carbon Dioxide (22-29) mmol/L Anion Gap (12-20) BUN (9-16) mg/dL Creatinine (0.5-1.4) mg/dL Estim Creat Clear Calc Estimated GFR Random Glucose (60-115) mg/dL Calcium (8.4-10.2) mg/dL Total Bilirubin (0.0-1.0) mg/dL AST (5-31) U/L ALT (0-31) U/L Alkaline Phosphatase (39-117) U/L Total Protein (6.5-8.0) g/dL Albumin (3.5-5.0) g/dL Urine Color Yellow Urine Appearance Cloudy Urine pH 5.5 (5.0-9.0) Ur Specific [place] 1.025 (1.005-1.025) Urine Protein 30 (1+) H (Neg-Trace) mg/dL Urine Glucose (UA) 500 H (Negative) mg/dL Urine Ketones Trace (Negative) mg/dL Urine Blood Negative (Negative) Urine Nitrite Positive H (Negative) Ur Leukocyte Esterase Trace H (Negative) Urine RBC 0-2 (0-2) /HPF Urine WBC 21-50 H (0-5) /HPF Ur Squamous Epith Cells 11-20 (0-2) /HPF Calcium Oxalate Crystal Present Urine Bacteria 4+ (None Seen) Hyaline Casts 0-2 (0-2) /LPF Urine Opiates Screen Not Detected (Not Detect) Urine Fentanyl Screen Not Detected (Not Detect) Ur Barbiturates Screen Not Detected (Not Detect) Ur Phencyclidine Scrn Not Detected (Not Detect) Ur Amphetamines Screen Not Detected (Not Detect) U Benzodiazepines Scrn Not Detected (Not Detect) Urine Cocaine Screen Not Detected (Not Detect) U Marijuana (THC) Screen POSITIVE H (Not Detect) 02/13/23 Range/Units 15:38 WBC (4.8-10.8) X10*3/uL RBC (4.20-5.50) X10*6/uL Hgb (12.0-16.0) g/dl Hct (37.0-47.0) % MCV (80.0-98.0) fL MCH (27.0-33.0) pg MCHC (31.0-35.0) g/dl RDW (11.0-16.0) % Plt Count (160-400) X10*3/uL MPV (9.4-12.3) fL Immature Gran % (Auto) (0.0-0.4) % Neut % (Auto) (45-73) % Lymph % (Auto) (20-40) % [place] % (Auto) (2-11) % Eos % (Auto) (0-4) % Baso % (Auto) (0-2) % Lymph # (Auto) (1.2-4.9) X10*3/uL [place] # (Auto) (0.1-1.2) X10*3/uL Eos # (Auto) (0.0-0.4) X10*3/uL Baso # (Auto) (0.0-0.2) X10*3/uL Abs Immat Gran (auto) (0.00-0.03) X10*3/uL Absolute Neuts (auto) (2.0-8.3) x10*3/uL Absolute Nucleated RBC (0.0-0.012) X10*3/uL Nucleated RBC % (auto) (0.0-0.2) /100WBC Sodium 142 (135-145) mmol/L Potassium 4.1 (3.3-5.1) mmol/L Chloride 110 H (96-108) mmol/L Carbon Dioxide 26 (22-29) mmol/L Anion Gap 10 L (12-20) BUN 15 (9-16) mg/dL Creatinine 0.98 (0.5-1.4) mg/dL Estim Creat Clear Calc 59.5 Estimated GFR 56 Random Glucose 170 H (60-115) mg/dL Calcium 10.1 (8.4-10.2) mg/dL Total Bilirubin 0.4 (0.0-1.0) mg/dL AST 20 (5-31) U/L ALT 20 (0-31) U/L Alkaline Phosphatase 73 (39-117) U/L Total Protein 7.5 (6.5-8.0) g/dL Albumin 3.7 (3.5-5.0) g/dL Urine Color Urine Appearance Urine pH (5.0-9.0) Ur Specific [place] (1.005-1.025) Urine Protein (Neg-Trace) mg/dL Urine Glucose (UA) (Negative) mg/dL Urine Ketones (Negative) mg/dL Urine Blood (Negative) Urine Nitrite (Negative) Ur Leukocyte Esterase (Negative) Urine RBC (0-2) /HPF Urine WBC (0-5) /HPF Ur Squamous Epith Cells (0-2) /HPF Calcium Oxalate Crystal Urine Bacteria (None Seen) Hyaline Casts (0-2) /LPF Urine Opiates Screen (Not Detect) Urine Fentanyl Screen (Not Detect) Ur Barbiturates Screen (Not Detect) Ur Phencyclidine Scrn (Not Detect) Ur Amphetamines Screen (Not Detect) U Benzodiazepines Scrn (Not Detect) Urine Cocaine Screen (Not Detect) U Marijuana (THC) Screen (Not Detect) Independent Interpretation I performed an independent interpretation of an: EKG Interpretation: Vent. Rate: 086 BPM ? ? Atrial Rate: 086 BPM P-R Int: 134 ms? QRS Dur: 084 ms QT Int: 320 ms ? ? ? P-R-T Axes: 104 164 169 degrees QTc Int: 382 ms ? Suspect limb lead reversal, interpretation assumes no reversal Normal sinus rhythm Right axis deviation Nonspecific T wave abnormality Abnormal ECG When compared with ECG of 09-DEC-2022 17:46, QRS axis Shifted right DD/ 99 Independent Historian Clinical information obtained from an independent historian. History obtained from or confirmed by: EMS (EMS provided additional history and confirmed the history provided by the patient. ) External Record Review External record reviewed: Other (reviewed patient's previous ED visits.) Prescription Management I considered prescription management with: Antibiotic (patient given a PO antibiotic while here.) Critical Care Time Critical Care Time Critical Care Time: Yes Total Critical Care Time: 40 Attestation: I spent 40 minutes of Critical Care Time with this patient. This does not include time spent on separately reported billable procedures. Discharge Plan Discharge Clinical Impression: Major depressive disorder, Urinary tract infection Patient Disposition: Still a Patient Prescriptions: No Action olanzapine 2.5 mg Tablet 2.5 mg PO BEDTIME 30 Days Qty: 30 0RF simethicone [Gas Relief (simethicone)] 80 mg Tablet,Chewable 80 mg PO TID PRN (Reason: gas) 30 Days Qty: 30 0RF escitalopram oxalate 10 mg Tablet 10 mg PO DAILY 30 Days Qty: 30 0RF atorvastatin 20 mg tablet 20 mg PO BEDTIME Qty: 30 11RF clonazepam 0.5 mg tablet 0.5 mg PO DAILY PRN (Reason: Anxiety) 30 Days Qty: 30 0RF (DME) FreeStyle Lite Strips Strip See Rx Instructions .ROUTE .MEDSUPPLY Qty: 150 11RF Rx Instructions: 4 times a day aspirin 81 mg tablet,delayed release (DR/EC) 81 mg PO DAILY 30 Days Qty: 30 0RF ascorbic acid (vitamin C) [Vitamin C] 500 mg Tablet 500 mg PO DAILY 30 Days Qty: 30 0RF albuterol sulfate 90 mcg/actuation HFA aerosol inhaler 2 inh inhalation Q4H PRN (Reason: Wheezing) 30 Days Qty: 1 0RF metformin 500 mg tablet extended release 24 hr 500 mg PO BID Qty: 60 0RF topiramate 50 mg tablet 50 mg PO BID 30 Days Qty: 60 0RF cholecalciferol (vitamin D3) 50 mcg (2,000 unit) capsule 50 mcg PO DAILY 30 Days Qty: 30 0RF (DME) pen needle, diabetic 32 gauge x 5/32 needle See Rx Instructions subcut .MEDSUPPLY Qty: 50 0RF Rx Instructions: As directed (DME) lancets [TRUEplus Lancets] 33 gauge misc See Rx Instructions .ROUTE .MEDSUPPLY Qty: 100 0RF Rx Instructions: As directed test blood sugar 4 times a day cetirizine 10 mg tablet 10 mg PO DAILY meloxicam 15 mg tablet 15 mg PO DAILY insulin aspart U-100 [Novolog FlexPen U-100 Insulin] 100 unit/mL (3 mL) insulin pen 1 sliding scale dose subcut TIDAC insulin glargine [Lantus Solostar U-100 Insulin] 100 unit/mL (3 mL) insulin pen 30 unit subcut BEDTIME Ozempic 1 mg/dose (4 mg/3 mL) pen injector 1 mg subcut WE@0900 Rx Instructions: on wednesdays citalopram 20 mg tablet 20 mg PO DAILY Dry Eye Relief 1-0.2-0.2 % drops 1 drp ophthalmic (eye) QID PRN (Reason: Dry Eyes) gabapentin 300 mg capsule 300 mg PO TID 30 Days Qty: 90 3RF cyclobenzaprine 5 mg tablet 5 mg PO TID PRN (Reason: muscle spasms) 30 Days Qty: 90 3RF acetaminophen 650 mg tablet extended release 650 mg PO Q6H PRN (Reason: pain) mirtazapine 15 mg tablet 15 mg PO BEDTIME trazodone 50 mg tablet 50 mg PO BEDTIME PRN (Reason: Insomnia) Rx Instructions: MAY REPEAT ONCE Lubrifresh PM 83-15 % ointment ophthalmic (eye) DAILY PRN (Reason: dry eyes)
--- NOTE | 2023-02-13 17:23 | MHC.CARE ---
[facility] called and informed pt has been medically cleared and does have UTI, oral antibiotics being given. [facility] to come to [facility] ED and re-assess for disposition.
[2023-02-13 17:30] VITALS: BP 155/83; PULSE 84; RESP 16; TEMP 36.5; O2SAT 99
--- NOTE | 2023-02-13 17:36 | PC.NURSE ---
patient changed into hoospital gown, awaiting [facility] consult. patient is medically cleared. patient repositioned in bed, given a snack, water and agnieszka audelia
--- NOTE | 2023-02-13 18:19 | PC.NURSE ---
patient endorses SI in room with [facility], planned for psych admit
--- NOTE | 2023-02-13 18:50 | ECG_ITS ---
Test Reason : uti Blood Pressure : / mmHG Vent. Rate : 086 BPM Atrial Rate : 086 BPM P-R Int : 134 ms QRS Dur : 084 ms QT Int : 320 ms P-R-T Axes : 104 164 169 degrees QTc Int : 382 ms Suspect limb lead reversal, interpretation assumes no reversal Normal sinus rhythm Right axis deviation Nonspecific T wave abnormality Abnormal ECG When compared with ECG of 09-DEC-2022 17:46, QRS axis Shifted right Referred By: Bere Crockett Electronically Signed By:Shashi Johnston
[2023-02-13 21:31] LABS: Glucose, Whole Blood 305 mg/dL (60-115)
--- NOTE | 2023-02-13 21:38 | PHA.MEDREC ---
Pharmacy Consult ? Medication Reconciliation Pharmacy has completed the medication reconciliation. Spoke to patient and used claim history to verify medications with her. She did not know the medications on her own but was able to identify which medications she takes when she heard the names and was also able to tell me she takes novolog on sliding scale and lantus 30 units at bedtime.
[2023-02-13] MEDS: clonazePAM 0.5 MG TABLET PO (22:38)
[2023-02-13] MEDS: Cyclobenzaprine HCl 5 MG TABLET PO (22:38)
[2023-02-13] MEDS: Insulin Glargine,Hum.rec.anlog 100 UNIT/ML 10 ML VIAL 30 UNIT SUBCUT (22:43)
[2023-02-13] MEDS: Acetaminophen 325 MG TABLET 650 MG PO (22:44)
[2023-02-14] MEDS: Mirtazapine 15 MG TABLET PO ×2 (01:35→22:23)
[2023-02-14] MEDS: Gabapentin 300 MG CAPSULE PO ×4 (01:35→21:32)
[2023-02-14 05:40] VITALS: RESP 20
[2023-02-14 06:21] VITALS: BP 140/74; PULSE 86; RESP 17; TEMP 36.2; O2SAT 100
--- NOTE | 2023-02-14 06:21 | PC.NURSE ---
Patient denies SI at this time. Report left and wrist pain. Uneventful night in which PT slept very little though she did state she was tired. She noted she was afraid of the bed because it was too hard. PT tearful at times, but easily redirectable. Vss, provided meal when requested. No concerns at this time.
[2023-02-14] MEDS: Insulin Lispro 100 UNIT/ML 3 ML VIAL SUBCUT ×4 (08:03→22:06)
[2023-02-14] MEDS: Cholecalciferol (Vitamin D3) 25 MCG TABLET 50 MCG PO (08:05)
[2023-02-14] MEDS: Ascorbic Acid 500 MG TABLET PO (08:05)
[2023-02-14] MEDS: metFORMIN HCl ER 500 MG TAB.ER.24H PO ×2 (08:06→21:32)
[2023-02-14] MEDS: Loratadine 10 MG TABLET PO (08:06)
[2023-02-14] MEDS: Topiramate 25 MG TABLET 50 MG PO ×2 (08:06→21:33)
[2023-02-14] MEDS: Aspirin Enteric Coated 81 MG TABLET.DR PO (08:06)
[2023-02-14] MEDS: Escitalopram Oxalate 10 MG TABLET PO (08:06)
[2023-02-14] MEDS: NaPROXEN 500 MG TABLET PO ×2 (08:06→21:32)
[2023-02-14 08:18] LABS: Glucose, Whole Blood 258 mg/dL (60-115)
[2023-02-14 13:19] LABS: Glucose, Whole Blood 421 mg/dL (60-115)
[2023-02-14 14:00] VITALS: BP 135/70; PULSE 81; RESP 14; TEMP 36.7; O2SAT 99
--- NOTE | 2023-02-14 14:05 | PC.NURSE ---
Blood sugar 421. 10 units Lis[address] given per Dr. Francisco.
[2023-02-14 15:22] LABS: Glucose, Whole Blood 365 mg/dL (60-115)
--- NOTE | 2023-02-14 15:30 | PC.NURSE ---
Blood sugar 365, Dr. Francisco aware.
[2023-02-14 17:03] VITALS: BP 135/70; PULSE 81; RESP 18; TEMP 36.7; O2SAT 100
[2023-02-14 18:05] LABS: Glucose, Whole Blood 197 mg/dL (60-115)
--- NOTE | 2023-02-14 20:00 | PC.NURSE ---
Pt ambulated to the restroom with a steady gait. Resting quietly in room. Plan of care ongoing.
[2023-02-14 21:40] LABS: Glucose, Whole Blood 237 mg/dL (60-115)
[2023-02-14] MEDS: Insulin Glargine,Hum.rec.anlog 100 UNIT/ML 10 ML VIAL 35 UNIT SUBCUT (22:07)
--- NOTE | 2023-02-14 22:24 | PC.NURSE ---
This RN spoke to Yang in pharm. Previous dose of Mirtazapine was documented against the 02/14 2100 order. Per Yang will need to document against the unscheduled dose. This RN spoke with vp project Trista and we are unable to document against unscheduled med doses. Will need to document against future dose for 02/15.
--- NOTE | 2023-02-15 00:18 | PC.NURSE ---
Pt with an unsteady gait, assisted to restroom by patient tech. LOPEZ Crockett aware of pts current condition.
--- NOTE | 2023-02-15 00:29 | PC.NURSE ---
POC 207, provider aware.
[2023-02-15 00:34] LABS: Glucose, Whole Blood 207 mg/dL (60-115)
--- NOTE | 2023-02-15 00:43 | PC.NURSE ---
Pt sitting at edge of bed and reports lying down makes her legs hurt. Pt responding appropriately to questions. Plan of care ongoing.
--- NOTE | 2023-02-15 01:01 | PC.NURSE ---
Pt assisted to the bed and assisted with repositioning. plan of care ongoing.
--- NOTE | 2023-02-15 01:35 | PC.NURSE ---
Pt given walker and assisted to the bathroom and back into bed. 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 Plan of care ongoing.
--- NOTE | 2023-02-15 02:52 | PC.NURSE ---
B/P 145/78. MD Bret aware.
[2023-02-15 06:05] VITALS: BP 179/93; PULSE 99; RESP 20; TEMP 36.4; O2SAT 100
[2023-02-15] MEDS: Acetaminophen 325 MG TABLET 650 MG PO (06:29)
--- NOTE | 2023-02-15 06:29 | PC.NURSE ---
Pt ambulated to bathroom and legs went weak. Pt assisted to chair. Provider in to see pt. Provider aware of B/P. Pt tearful reporting 8/10 left arm and shoulder pain. Provider aware.
[2023-02-15 07:11] LABS: Glucose, Whole Blood 114 mg/dL (60-115)
[2023-02-15] MEDS: NaPROXEN 500 MG TABLET PO ×2 (08:36→20:15)
[2023-02-15] MEDS: Ascorbic Acid 500 MG TABLET PO (08:36)
[2023-02-15] MEDS: metFORMIN HCl ER 500 MG TAB.ER.24H PO ×2 (08:36→20:16)
[2023-02-15] MEDS: Topiramate 25 MG TABLET 50 MG PO ×2 (08:36→20:16)
[2023-02-15] MEDS: Aspirin Enteric Coated 81 MG TABLET.DR PO (08:36)
[2023-02-15] MEDS: Escitalopram Oxalate 10 MG TABLET PO (08:36)
[2023-02-15] MEDS: Cholecalciferol (Vitamin D3) 25 MCG TABLET 50 MCG PO (08:36)
[2023-02-15] MEDS: Loratadine 10 MG TABLET PO (08:37)
[2023-02-15] MEDS: Potassium Chloride ER 10 MEQ TABLET.ER PO (08:37)
[2023-02-15] MEDS: Furosemide 20 MG TABLET PO (08:37)
[2023-02-15] MEDS: Gabapentin 300 MG CAPSULE PO ×3 (08:37→20:16)
[2023-02-15 10:42] LABS: MANUAL DIFF FLAG NO
[2023-02-15 10:43] LABS: Basophils Percent Auto 0.3 % (0-2); Eosinophils Absolute Auto 0.1 X10*3/uL (0.0-0.4); Eosinophils Percent Auto 1.6 % (0-4); Hematocrit 42.4 % (37.0-47.0); Hemoglobin 13.9 g/dl (12.0-16.0); Imm Gran Abs Auto 0.02 X10*3/uL (0.00-0.03); Imm Gran Pct Auto 0.3 % (0.0-0.4); Lymphocytes Absolute Auto 2.2 X10*3/uL (1.2-4.9); Lymphocytes Percent Auto 28.9 % (20-40); Mean Corpuscular HGB Conc 32.8 g/dl (31.0-35.0); Mean Corpuscular Hemoglobin 31.4 pg (27.0-33.0); Mean Corpuscular Volume 95.7 fL (80.0-98.0); Mean Platelet Volume 11.9 fL (9.4-12.3); Monocytes Absolute Auto 0.4 X10*3/uL (0.1-1.2); Monocytes Percent Auto 5.3 % (2-11); Neutrophils Absolute Auto 4.8 x10*3/uL (2.0-8.3); Neutrophils Percent Auto 63.6 % (45-73); Platelet Count 231 X10*3/uL (160-400); Red Blood Count 4.43 X10*6/uL (4.20-5.50); Red Cell Distribution Width 12.6 % (11.0-16.0); White Blood Count 7.5 X10*3/uL (4.8-10.8)
[2023-02-15 10:53] LABS: Lactic Acid 1.7 mmol/L (0.5-2.0)
[2023-02-15 10:56] LABS: Anion Gap 15 (12-20); Blood Urea Nitrogen 21 mg/dL (9-16); Calcium 9.8 mg/dL (8.4-10.2); Carbon Dioxide 21 mmol/L (22-29); Chloride 108 mmol/L (96-108); Creatinine Clr Calc Pharmacy 54.6; Estimated Glomerular Filt Rate 51; Glucose Random 278 mg/dL (60-115); Potassium 4.2 mmol/L (3.3-5.1); Sodium 140 mmol/L (135-145)
[2023-02-15 13:30] LABS: Glucose, Whole Blood 295 mg/dL (60-115)
[2023-02-15] MEDS: Insulin Lispro 100 UNIT/ML 3 ML VIAL SUBCUT ×3 (13:45→21:25)
[2023-02-15 18:37] LABS: Glucose, Whole Blood 306 mg/dL (60-115)
[2023-02-15] MEDS: Simethicone 80 MG TAB.CHEW PO (19:39)
--- NOTE | 2023-02-15 19:40 | PC.NURSE ---
assumed care of patient at 1900 - pt ambulating with walker with steady gait no issues. pt reporting belly pain - given simethicone per mar for gas relief. pt speaking clear full sentences in NAD, will ctm.
[2023-02-15] MEDS: Cyclobenzaprine HCl 5 MG TABLET PO (20:15)
[2023-02-15] MEDS: clonazePAM 0.5 MG TABLET PO (20:16)
[2023-02-15] MEDS: Insulin Glargine,Hum.rec.anlog 100 UNIT/ML 10 ML VIAL 35 UNIT SUBCUT (20:19)
--- NOTE | 2023-02-15 20:23 | PC.NURSE ---
patient took all home bedtime medications with no issues
[2023-02-15 20:31] VITALS: BP 138/87; PULSE 83; RESP 18; TEMP 36.1; O2SAT 99
[2023-02-15 21:24] LABS: Glucose, Whole Blood 230 mg/dL (60-115)
[2023-02-16 05:49] VITALS: RESP 17
[2023-02-16 07:38] LABS: Glucose, Whole Blood 86 mg/dL (60-115)
[2023-02-16] MEDS: Cholecalciferol (Vitamin D3) 25 MCG TABLET 50 MCG PO (07:59)
[2023-02-16] MEDS: Topiramate 25 MG TABLET 50 MG PO ×2 (08:00→20:57)
[2023-02-16] MEDS: metFORMIN HCl ER 500 MG TAB.ER.24H PO ×2 (08:00→20:56)
[2023-02-16] MEDS: Potassium Chloride ER 10 MEQ TABLET.ER PO (08:00)
[2023-02-16] MEDS: Furosemide 20 MG TABLET PO (08:00)
[2023-02-16] MEDS: Aspirin Enteric Coated 81 MG TABLET.DR PO (08:00)
[2023-02-16] MEDS: Loratadine 10 MG TABLET PO (08:00)
[2023-02-16] MEDS: Gabapentin 300 MG CAPSULE PO ×2 (08:01→20:57)
[2023-02-16] MEDS: Escitalopram Oxalate 10 MG TABLET PO (08:01)
[2023-02-16] MEDS: NaPROXEN 500 MG TABLET PO ×2 (08:01→20:57)
[2023-02-16] MEDS: Ascorbic Acid 500 MG TABLET PO (08:01)
[2023-02-16 08:45] LABS: COVID-19 Test Negative (Negative); IDNOW Serial# 16C4AD1C
[2023-02-16 11:42] LABS: Appearance Urine Clear; Color Urine Yellow; Glucose Urine UA Negative (Negative); Leukocyte Esterase Urine Negative (Negative); Nitrite Urine Negative (Negative); PH 5.5 (5.0-9.0); Urine Blood Negative (Negative); Urine Ketones Negative (Negative); Urine Protein Negative (Neg-Trace)
--- NOTE | 2023-02-16 12:19 | P.CNPS_ITS ---
History of Present Illness Date of Service: 02/16/2023 Chief Complaint: ?UTI PER EMS Reason for Consult: SI Requesting physician: Drew Negrete Discussed with referring provider: Yes Sources of Information: patient interviewed, chart reviewed and crisis/core team assessment reviewed HPI Narrative: Ms. Ramos is a 72 year-old woman with hx of MDD who was brought after being assessed by [facility] due to increase depression, suicidal ideation with plan to jump off traffic. In the ED, pt's utox was negative. CBC unremarkable. CMP showed elevation in BUN 21, normal cr, creatine clearance 54.6. Found to have UTI (culture was positive for ecoli), started on ceftin. Pt is known to [facility] through one prior admission in 11/2022 due to depression and SI, also with UTI. Today, pt reports she had a difficult day, referring to the day that she was assessed by crisis at home. She reports she saw her son's pic and was very tearful Pt adamantly denies any plan or intent to harm herself. She reports she thought she heard her son's voice. She reports sleeping and eating well. She is oriented to place, situation, month and year; date off by 2 days. She has difficulty ambulating on her own. 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 Pt reports she has help at home with [employer]. Here in the ED, she has been two person assist. No signs of psychosis. Pt does have uncontrolled DM. Past Psychiatric History: Inpatient: 11/2022 S1 (depression, also uti) The patient is a poor historian but apparently she has prior admissions into the hospital for depression. She follows outpatient services at [facility], her prescriber is [facility] and according to the [facility] rec, she had been on citalopram 20 mg p.o. daily and Klonopin 0.5 once a day p.r.n.. Medical Evaluation Reviewed: Yes [facility] Medical History Polanco's palsy Colon cancer screening Depression Diabetes type 2, uncontrolled Diabetic polyneuropathy associated with type 2 diabetes mellitus Dyslipidemia Elevated hemoglobin A1c Fibromyalgia Hypertension Left arm weakness Left shoulder pain Left-sided weakness shelter (current) use of insulin Lung cancer Microscopic hematuria Neck pain Numbness and tingling in left arm Obesity (BMI 30-39.9) Thoracic outlet syndrome Vitamin D deficiency Surgical History H/O: hysterectomy Family History: Her biological mother suffer from bipolar disorder Social History: The patient had 5 children, 2 daughters and 3 sons but she does not have a relation with her children. She lives alone and she has [employer] services, she receives outpatient services from [facility]. Trauma History: Refused to elaborate Diagnostics Vital Signs (24Hr): Vital Signs - 24 hr 02/15/23 20:31 02/16/23 05:49 Temperature 97 F Pulse Rate 83 Respiratory Rate 18 17 Blood Pressure 138/87 Pulse Oximetry 99 Oxygen Delivery Method Room Air BMI result Body Mass Index 35.8 Labs 02/15/23 10:36 02/15/23 10:36 Labs: Laboratory Results - last 48 hr 02/14/23 02/14/23 02/14/23 13:02 15:17 18:01 WBC RBC Hgb Hct MCV MCH MCHC RDW Plt Count MPV Immature Gran % (Auto) Neut % (Auto) Lymph % (Auto) [place] % (Auto) Eos % (Auto) Baso % (Auto) Lymph # (Auto) [place] # (Auto) Eos # (Auto) Baso # (Auto) Abs Immat Gran (auto) Absolute Neuts (auto) Absolute Nucleated RBC Nucleated RBC % (auto) Sodium Potassium Chloride Carbon Dioxide Anion Gap BUN Creatinine Estim Creat Clear Calc Estimated GFR POC Glucose 421 H* 365 H* 197 H Random Glucose Lactic Acid Calcium Urine Color Urine Appearance Urine pH Ur Specific [place] Urine Protein Urine Glucose (UA) Urine Ketones Urine Blood Urine Nitrite Ur Leukocyte Esterase COVID-19 (DAVE) COVID-19 Clin Com 02/14/23 02/15/23 02/15/23 21:35 00:25 07:07 WBC RBC Hgb Hct MCV MCH MCHC RDW Plt Count MPV Immature Gran % (Auto) Neut % (Auto) Lymph % (Auto) [place] % (Auto) Eos % (Auto) Baso % (Auto) Lymph # (Auto) [place] # (Auto) Eos # (Auto) Baso # (Auto) Abs Immat Gran (auto) Absolute Neuts (auto) Absolute Nucleated RBC Nucleated RBC % (auto) Sodium Potassium Chloride Carbon Dioxide Anion Gap BUN Creatinine Estim Creat Clear Calc Estimated GFR POC Glucose 237 H 207 H 114 Random Glucose Lactic Acid Calcium Urine Color Urine Appearance Urine pH Ur Specific [place] Urine Protein Urine Glucose (UA) Urine Ketones Urine Blood Urine Nitrite Ur Leukocyte Esterase COVID-19 (DAVE) COVID-19 [facility] 02/15/23 02/15/23 02/15/23 10:36 10:36 10:36 WBC 7.5 RBC 4.43 Hgb 13.9 Hct 42.4 MCV 95.7 MCH 31.4 MCHC 32.8 RDW 12.6 Plt Count 231 MPV 11.9 Immature Gran % (Auto) 0.3 Neut % (Auto) 63.6 Lymph % (Auto) 28.9 [place] % (Auto) 5.3 Eos % (Auto) 1.6 Baso % (Auto) 0.3 Lymph # (Auto) 2.2 [place] # (Auto) 0.4 Eos # (Auto) 0.1 Baso # (Auto) 0.0 Abs Immat Gran (auto) 0.02 Absolute Neuts (auto) 4.8 Absolute Nucleated RBC 0.000 Nucleated RBC % (auto) 0.0 Sodium 140 Potassium 4.2 Chloride 108 Carbon Dioxide 21 L Anion Gap 15 BUN 21 H Creatinine 1.07 Estim Creat Clear Calc 54.6 Estimated GFR 51 POC Glucose Random Glucose 278 H Lactic Acid 1.7 Calcium 9.8 Urine Color Urine Appearance Urine pH Ur Specific [place] Urine Protein Urine Glucose (UA) Urine Ketones Urine Blood Urine Nitrite Ur Leukocyte Esterase COVID-19 (DAVE) COVID-19 [facility] [facility] 02/15/23 02/15/23 02/15/23 13:26 18:32 21:20 WBC RBC Hgb Hct MCV MCH MCHC RDW Plt Count MPV Immature Gran % (Auto) Neut % (Auto) Lymph % (Auto) [place] % (Auto) Eos % (Auto) Baso % (Auto) Lymph # (Auto) [place] # (Auto) Eos # (Auto) Baso # (Auto) Abs Immat Gran (auto) Absolute Neuts (auto) Absolute Nucleated RBC Nucleated RBC % (auto) Sodium Potassium Chloride Carbon Dioxide Anion Gap BUN Creatinine Estim Creat Clear Calc Estimated GFR POC Glucose 295 H 306 H 230 H Random Glucose Lactic Acid Calcium Urine Color Urine Appearance Urine pH Ur Specific [place] Urine Protein Urine Glucose (UA) Urine Ketones Urine Blood Urine Nitrite Ur Leukocyte Esterase COVID-19 (DAVE) COVID-19 Clin Com 02/16/23 02/16/23 02/16/23 07:32 08:04 11:32 WBC RBC Hgb Hct MCV MCH MCHC RDW Plt Count MPV Immature Gran % (Auto) Neut % (Auto) Lymph % (Auto) [place] % (Auto) Eos % (Auto) Baso % (Auto) Lymph # (Auto) [place] # (Auto) Eos # (Auto) Baso # (Auto) Abs Immat Gran (auto) Absolute Neuts (auto) Absolute Nucleated RBC Nucleated RBC % (auto) Sodium Potassium Chloride Carbon Dioxide Anion Gap BUN Creatinine Estim Creat Clear Calc Estimated GFR POC Glucose 86 Random Glucose Lactic Acid Calcium Urine Color Yellow Urine Appearance Clear Urine pH 5.5 Ur Specific [place] 1.010 Urine Protein Negative Urine Glucose (UA) Negative Urine Ketones Negative Urine Blood Negative Urine Nitrite Negative Ur Leukocyte Esterase Negative COVID-19 (DAVE) Negative COVID-19 Clin Com See Note Mental Status Exam Mental Status Exam Narrative: Appearance: wearing hospital gown, ambulating with walker, in NAD Behavior: cooperative Psychomotor: no agitation or retardation noted Speech: clear, normal rate/rhythm/volume, spontaneous TP: linear TC: no signs of delusions, or psychosis, wanting to go home, feeling better Mood: better Affect: congruent, brightens up non-labile SI: adamantly denies HI: none VH/AH: none Delusions: none Insight/judgment: fair x 2 Memory/cog: alert, oriented to place, situation, month and year. date is off by 2 days. Full MOCA not completed, other deficits not assessed. Medications Medications Current Medications Acetaminophen (Acetaminophen 325 Mg Tablet) 650 mg PO Q6H PRN PRN Reason: pain Last Admin: 02/15/23 06:29 Dose: 650 mg Albuterol Sulfate (Albuterol Sulfate 90 Mcg 8 Gm Inhaler) 2 puff INHALE Q4H PRN PRN Reason: Shortness Of Breath Or Wheezing Ascorbic Acid (Ascorbic Acid 500 Mg Tablet) 500 mg PO DAILY [facility] Last Admin: 02/16/23 08:01 Dose: 500 mg Aspirin (Aspirin Enteric Coated 81 Mg Tablet.) 81 mg PO DAILY [facility] Last Admin: 02/16/23 08:00 Dose: 81 mg Cefuroxime Axetil (Cefuroxime Axetil 250 Mg Tablet) 250 mg PO BID [facility] Stop: 02/20/23 23:00 Last Admin: 02/16/23 08:00 Dose: 250 mg Clonazepam (Clonazepam 0.5 Mg Tablet) 0.5 mg PO DAILY PRN PRN Reason: Anxiety Last Admin: 02/15/23 20:16 Dose: 0.5 mg Cyclobenzaprine HCl (Cyclobenzaprine Hcl 5 Mg Tablet) 5 mg PO TID PRN PRN Reason: muscle spasms Last Admin: 02/15/23 20:15 Dose: 5 mg Escitalopram Oxalate (Escitalopram Oxalate 10 Mg Tablet) 10 mg PO DAILY [facility] Last Admin: 02/16/23 08:01 Dose: 10 mg Furosemide (Furosemide 20 Mg Tablet) 20 mg PO DAILY [facility]; Protocol Last Admin: 02/16/23 08:00 Dose: 20 mg Gabapentin (Gabapentin 300 Mg Capsule) 300 mg PO TID [facility] Last Admin: 02/16/23 08:01 Dose: 300 mg Insulin Glargine (Insulin Glargine,Hum.Rec.Anlog 100 Unit/Ml 10 Ml Vial) 35 unit SUBCUT BEDTIME [facility] Last Admin: 02/15/23 20:19 Dose: 35 unit Insulin Human Lispro (Insulin Lispro 100 Unit/Ml 3 Ml Vial) 0 unit SUBCUT QIDACHS [facility]; Protocol Last Admin: 02/16/23 07:50 Dose: Not Given Loratadine (Loratadine 10 Mg Tablet) 10 mg PO DAILY [facility] Last Admin: 02/16/23 08:00 Dose: 10 mg Metformin HCl (Metformin Hcl Er 500 Mg Tab.Er.24h) 500 mg PO BID [facility] Last Admin: 02/16/23 08:00 Dose: 500 mg Mirtazapine (Mirtazapine 15 Mg Tablet) 15 mg PO BEDTIME [facility] Last Admin: 02/14/23 22:23 Dose: 15 mg Naproxen (Naproxen 500 Mg Tablet) 500 mg PO BID [facility] Last Admin: 02/16/23 08:01 Dose: 500 mg Non-Formulary Medication (Semaglutide [Ozempic]) 1 mg SUBCUT WE@0900 [facility] Pharmacy Consult (Consult Rx Perform Med Rec) 1 each MISCELLANE ONCE PRN PRN Reason: Consult order Potassium Chloride (Potassium Chloride Er 10 Meq Tablet.Er) 10 meq PO DAILY [facility] Last Admin: 02/16/23 08:00 Dose: 10 meq Simethicone (Simethicone 80 Mg Tab.Chew) 80 mg PO TID PRN PRN Reason: gas Last Admin: 02/15/23 19:39 Dose: 80 mg Topiramate (Topiramate 25 Mg Tablet) 50 mg PO BID [facility] Last Admin: 02/16/23 08:00 Dose: 50 mg Vitamin D (Cholecalciferol (Vitamin D3) 25 Mcg Tablet) 50 mcg PO DAILY [facility] Last Admin: 02/16/23 07:59 Dose: 50 mcg Allergies Allergies Allergy/AdvReac Type Severity Reaction Status Date / Time COVID-19 vacc, bv (Orig, Allergy Severe Swelling Verified 02/14/23 08:16 Omicron BA.4/5) (Pfizer) [From Pfizer COVID Bival(12y up)(PF)] homosalate [From Coppertone] Allergy Intermediate RASH, itchy Verified 02/14/23 08:16 octinoxate [From Coppertone] Allergy Intermediate RASH, itchy Verified 02/14/23 08:16 oxybenzone [From Coppertone] Allergy Intermediate RASH, itchy Verified 02/14/23 08:16 pioglitazone Allergy Unknown Unknown Verified 02/14/23 08:16 pollen extracts Allergy Unknown Unknown Verified 02/14/23 08:16 diovan Allergy Unknown rash Uncoded 12/16/22 07:51 Assessment & Plan Assessment & Plan (1) Major depressive disorder: Status: Acute Code(s): F32.9 - Major depressive disorder, single episode, unspecified Plan Ms. Ramos is a 72 year-old woman with hx of MDD. Pt brought to [facility] after being assessed by [facility] due to suicidal ideation with plan to jump into traffic.Some report of hallucinations and acute change in mentation. In the ED, pt found to have UTI- culture was positive for e.coli. Pt started on ceftin. Pt seen today. She denies suicidal or homicidal ideation. No evidence of psychosis or delusional content. Pt ambulates with walker. Pt reports weakness when ambulating which she attributes to hx of bells palsy. PLAN 1. No imminent safety concern in terms of suicidality or gravely disable due to psychiatric symptoms. Pt currently does not present with psychosis- it is possible this was secondary to delirium due to UTI. Full assessment of memory/cognitive function not completed. However, pt presents as oriented x 4. 2. Needs to be evaluated by PT due to weakness and unsteady gait. Total time managing care of this patient today ____ minutes.
[2023-02-16] MEDS: Acetaminophen 325 MG TABLET 650 MG PO (12:24)
[2023-02-16 13:02] LABS: Glucose, Whole Blood 216 mg/dL (60-115)
[2023-02-16] MEDS: Insulin Lispro 100 UNIT/ML 3 ML VIAL SUBCUT ×3 (13:18→21:01)
--- NOTE | 2023-02-16 15:00 | MHC.CARE ---
CARE Team spoke with [facility] crisis, Pt does not meet criteria for IPLOC admission at this time. Plan for case management referral. Dr. Negrete and Tere Montgomery, [employer] in agreement with plan of care.
--- NOTE | 2023-02-16 16:44 | MHC.CM.PN ---
EMR REVIEWED, P.T. REC'S STR, PT CLEARED BY PSYCH, SNF REFERRAL PLACED AND CM WILL MEET W/PT IN AM.
[2023-02-16 17:20] LABS: TSH reflex Free T4 0.58 uIU/mL (0.32-4.0)
[2023-02-16 17:33] LABS: Folate 11.5 ng/mL (> or = 4.0); Vitamin B12 722 pg/mL (200-900)
--- NOTE | 2023-02-16 17:38 | PC.NURSE ---
Patient showered. Required 1 person assist
[2023-02-16 18:10] LABS: Glucose, Whole Blood 277 mg/dL (60-115)
[2023-02-16 20:33] LABS: Glucose, Whole Blood 312 mg/dL (60-115)
[2023-02-16] MEDS: Mirtazapine 15 MG TABLET PO (20:57)
[2023-02-16] MEDS: Insulin Glargine,Hum.rec.anlog 100 UNIT/ML 10 ML VIAL 35 UNIT SUBCUT (21:02)
--- NOTE | 2023-02-16 21:45 | PC.NURSE ---
pt POC 312, medicated with 8 units of lispro sc
[2023-02-17 05:47] LABS: Estimated Average Glucose 258 mg/dL; Hemoglobin A1c % 10.6 %
[2023-02-17 06:05] VITALS: BP 142/84; PULSE 70; RESP 16; TEMP 37; O2SAT 99
[2023-02-17 07:23] LABS: Glucose, Whole Blood 152 mg/dL (60-115)
[2023-02-17] MEDS: Insulin Lispro 100 UNIT/ML 3 ML VIAL SUBCUT (07:31)
[2023-02-17] MEDS: NaPROXEN 500 MG TABLET PO (09:57)
[2023-02-17] MEDS: Cholecalciferol (Vitamin D3) 25 MCG TABLET 50 MCG PO (09:57)
[2023-02-17] MEDS: Ascorbic Acid 500 MG TABLET PO (09:58)
[2023-02-17] MEDS: Topiramate 25 MG TABLET 50 MG PO (09:58)
[2023-02-17] MEDS: Furosemide 20 MG TABLET PO (09:58)
[2023-02-17] MEDS: Aspirin Enteric Coated 81 MG TABLET.DR PO (09:58)
[2023-02-17] MEDS: Escitalopram Oxalate 10 MG TABLET PO (09:58)
[2023-02-17] MEDS: Loratadine 10 MG TABLET PO (09:58)
[2023-02-17] MEDS: metFORMIN HCl ER 500 MG TAB.ER.24H PO (09:58)
[2023-02-17] MEDS: Gabapentin 300 MG CAPSULE PO (09:58)
[2023-02-17] MEDS: Potassium Chloride ER 10 MEQ TABLET.ER PO (09:59)
--- NOTE | 2023-02-17 11:25 | PC.NURSE ---
axox3, vss, respirations even and unlabored, skin warm and dry color appropriate to ethnicity. pt OOB, ambulating with walker. poc 152; given 2 units of insulin; ate 100% of breakfast. pt calm, cooperative, med compliant; pt medicated per MAR. case management to bedside with tie buyer. pt denies questions/concerns; all needs met at this time.
--- NOTE | 2023-02-17 11:27 | MHC.CM.PN ---
Addendum entered by Ayana Choe RN 02/17/23 12:30: cm contacted [employer] who provides vp publisher development hrs for pt, per farm management supervisor Efrem will meet pt at home at approx 1pm and can do todays shift (4hrs). Original Note: cm met w//pt via prover, pt reports she lives alone has a vp publisher development thu-thu 11-3pm, pt is declining str and reports she feels fine and would like to return home, pt verifies pcp is [facility] and will be sent home w/Home PT, cm has contacted [facility] liaison to see if they can provide home PT, liaison checking on availabilty if none cm will place referral for home PT, pt reports she walks w/a walker and can walk up 5 stairs holding on to rail however lives on first floor. pt also reports she does have a HCP, her dtr in [place] and a gson in [place]. pt does not have contact numbers with her. pt does report she has vp publisher development hrs thu-thu 11-3 and cm will attempt to contact pt's vp publisher development Danielle to see if she can meet pt at home.
== END 2023-02-17 12:30 | disposition home or self-care (01) ==
PROVIDERS: Emergency Medicine; Physician Assistant Medical; Social Worker; Emergency Provider Emergency Medicine Emergency Medical Services
DX: R41.82 Altered mental status, unspecified (principal); F32.9 Major depressive disorder, single episode, unspecified; N39.0 Urinary tract infection, site not specified; B96.20 Unspecified Escherichia coli [E. coli] as the cause of diseases classified elsewhere; R45.851 Suicidal ideations; Z20.822 Contact with and (suspected) exposure to COVID-19; E11.9 Type 2 diabetes mellitus without complications; I10 Essential (primary) hypertension; E78.5 Hyperlipidemia, unspecified; Z79.4 Long term (current) use of insulin; Z79.899 Other long term (current) drug therapy
CPT/HCPCS: 36415; 80048; 80053; 80307; 81001; 81003; 82607; 82746; 82947; 83036; 83605; 84443; 85025; 87040; 87086; 87088; 87186; 87635; 93005; 97162; 99285

== ENCOUNTER → 2023-02-13 14:07 | Outpatient (BNV) | payer OTHER, SELFPAY | PROVIDERS: Emergency Provider Emergency Medicine Emergency Medical Services; Visit Provider Social Worker | DX: F32.9 Major depressive disorder, single episode, unspecified (principal) | CPT/HCPCS: 99285 ==

== ENCOUNTER → 2023-02-13 18:50 | Outpatient (BNV) | payer OTHER, SELFPAY | PROVIDERS: Emergency Provider Emergency Medicine Emergency Medical Services; Visit Provider Internal Medicine Cardiovascular Disease | DX: R94.31 Abnormal electrocardiogram [ECG] [EKG] (principal) | CPT/HCPCS: 93010 ==

== ENCOUNTER 2023-05-15 02:54 | Emergency (ER) | payer OTHER, SELFPAY ==
--- NOTE | ~2023-05-15 | CT_ITS ---
EXAMINATION: CT HEAD WITHOUT CONTRAST CLINICAL INFORMATION: Headache. COMPARISON: None available. TECHNIQUE: Contiguous axial imaging was performed from the skull base to vertex without intravenous administration of contrast. This CT examination was performed using dose optimization techniques as appropriate, variously including the following: *Automated exposure control *Adjustment of mA and/or kV according to patient size (this includes techniques or standardized protocols for targeted exams where dose is matched to indication/reason for exam; i.e. extremities or head) *Use of iterative reconstruction technique DLP: 686 mGy-cm FINDINGS: The lateral, third and fourth ventricles are normally outlined. The cortical sulci and basal cisterns are normally outlined as well. There is mild bilateral periventricular and central white matter diminished attenuation. There is no acute territorial defect, hemorrhage or midline shift. The extra-axial spaces are unremarkable. Calvarium: Intact. Maxillofacial sinuses and mastoids: Clear as visualized. CT/CT head/brain wo IV con IMPRESSION: Mild bilateral periventricular and central white matter diminished attenuation which is nonspecific but likely to represent microvascular disease. There is no acute intracranial abnormality.
[2023-05-15 03:06] VITALS: BP 149/82; PULSE 102; RESP 17; TEMP 36.9; O2SAT 99
[2023-05-15 03:09] VITALS: BMI 35.9
--- NOTE | 2023-05-15 03:14 | ECG_ITS ---
Test Reason : chest pain Blood Pressure : / mmHG Vent. Rate : 098 BPM Atrial Rate : 098 BPM P-R Int : 134 ms QRS Dur : 082 ms QT Int : 368 ms P-R-T Axes : 068 007 043 degrees QTc Int : 469 ms Normal sinus rhythm Normal ECG When compared with ECG of 13-FEB-2023 20:00, QRS axis Shifted left Nonspecific T wave abnormality, improved in Inferior leads QT has lengthened Referred By: Generic ED Physician Electronically Signed By:IRENE PARKS MD
[2023-05-15 03:17] VITALS: BP 198/110; PULSE 121; O2SAT 100
[2023-05-15 04:28] LABS: MANUAL DIFF FLAG NO
[2023-05-15 04:29] LABS: Basophils Percent Auto 0.2 % (0-2); Eosinophils Absolute Auto 0.1 X10*3/uL (0.0-0.4); Eosinophils Percent Auto 0.6 % (0-4); Hematocrit 40.9 % (37.0-47.0); Hemoglobin 13.7 g/dl (12.0-16.0); Imm Gran Abs Auto 0.02 X10*3/uL (0.00-0.03); Imm Gran Pct Auto 0.2 % (0.0-0.4); Lymphocytes Absolute Auto 1.9 X10*3/uL (1.2-4.9); Lymphocytes Percent Auto 21.7 % (20-40); Mean Corpuscular HGB Conc 33.5 g/dl (31.0-35.0); Mean Corpuscular Hemoglobin 31.3 pg (27.0-33.0); Mean Corpuscular Volume 93.4 fL (80.0-98.0); Mean Platelet Volume 11.5 fL (9.4-12.3); Monocytes Absolute Auto 0.4 X10*3/uL (0.1-1.2); Monocytes Percent Auto 4.6 % (2-11); Neutrophils Absolute Auto 6.2 x10*3/uL (2.0-8.3); Neutrophils Percent Auto 72.7 % (45-73); Platelet Count 227 X10*3/uL (160-400); Red Blood Count 4.38 X10*6/uL (4.20-5.50); Red Cell Distribution Width 12.7 % (11.0-16.0); White Blood Count 8.6 X10*3/uL (4.8-10.8)
[2023-05-15 04:30] LABS: Appearance Urine Clear; Color Urine Yellow; Glucose Urine UA >=1000 mg/dL (Negative); Leukocyte Esterase Urine Negative (Negative); Nitrite Urine Positive (Negative); Specific Gravity - Urine 1.025 (1.005-1.025); UMIC TRIGGER UACC YES; Urine Blood Negative (Negative); Urine Ketones 15 mg/dL (Negative); Urine Protein Negative (Neg-Trace)
[2023-05-15 04:32] LABS: Bacteria Urine 4+ (None Seen); RBC Urine 0-2 /HPF (0-2); UACC Culture Trigger YES; WBC Urine 0-5 /HPF (0-5)
[2023-05-15 04:37] LABS: Amphetamine Screen Urine Not Detected (Not Detect); Barbiturates, Urine Not Detected (Not Detect); Benzodiazepines Screen Urine Not Detected (Not Detect); Cannabinoid Screen Urine Not Detected (Not Detect); Cocaine Screen Urine Not Detected (Not Detect); Fentanyl, urine Not Detected (Not Detect); Opiate Screen Urine Not Detected (Not Detect); Phencyclidine Screen Urine Not Detected (Not Detect)
--- NOTE | 2023-05-15 04:38 | PC.NURSE ---
Patient changed over in a ligature free hospital attire by MARAH Linton in presence of security, belongings place to pod.
--- NOTE | 2023-05-15 04:40 | PC.NURSE ---
Blood and urine specimens collected by procedure tech, specimens sent to lab for processing. Patient is resting in stretcher bed, 1:1 sitter at bedside.
[2023-05-15 04:43] LABS: Ethanol < 10 mg/dL
[2023-05-15 04:44] LABS: Acetaminophen LAB < 3 mcg/mL (<30); Salicylate < 5.0 mg/dL (15-30)
[2023-05-15 04:53] LABS: Troponin-I High Sensitivity 4.5 ng/L (<3.5-17.0)
--- NOTE | 2023-05-15 04:53 | PC.NURSE ---
Lab called with critical POC results 373. Dr. Vogel notified.
[2023-05-15 04:54] LABS: Alanine Aminotransferase 25 U/L (0-31); Albumin Level 3.9 g/dL (3.5-5.0); Alkaline Phosphatase 86 U/L (39-117); Anion Gap 12 (12-20); Aspartate Amino Transferase 23 U/L (5-31); Bilirubin Total 0.5 mg/dL (0.0-1.0); Blood Urea Nitrogen 15 mg/dL (9-16); Calcium 9.2 mg/dL (8.4-10.2); Carbon Dioxide 22 mmol/L (22-29); Chloride 108 mmol/L (96-108); Creatinine Clr Calc Pharmacy 51.7; Estimated Glomerular Filt Rate 50; Glucose Random 373 mg/dL (60-115); Potassium 4.6 mmol/L (3.3-5.1); Sodium 137 mmol/L (135-145); Total Protein 7.5 g/dL (6.5-8.0)
[2023-05-15 05:07] LABS: TSH reflex Free T4 1.42 uIU/mL (0.32-4.0)
[2023-05-15] MEDS: Insulin Regular, Human 100 UNIT/ML 3 ML VIAL IVPUSH (05:17)
[2023-05-15 05:20] VITALS: BP 133/67; PULSE 88; TEMP 36.7; O2SAT 99
[2023-05-15 06:26] LABS: Glucose, Whole Blood 275 mg/dL (60-115)
[2023-05-15 06:34] LABS: C Reactive Protein 0.13 mg/dL (< or = 0.50)
[2023-05-15 06:56] LABS: Erythrocyte Sedimentation Rate 13 MM/HR (0-20)
[2023-05-15] MEDS: 0.9 % Sodium Chloride 1,000 ML 999 ML IV (07:01)
--- NOTE | 2023-05-15 07:04 | PC.NURSE ---
Patient ambulated to the restroom with 1 assist when she became weak and noticeably anxious. Patient assisted a hospital stretcher. Patient reported she developed brief episode of mild pins and needles like chest pain and throat tightness which quickly resolved. Patient placed n playground monitor. VSS. Dr. Vogel notified, per MD no EKG needed at this time.
--- NOTE | 2023-05-15 07:22 | ED.PSYCH ---
HPI - Psych General Chief Complaint: Psychiatric Symptoms Stated Complaint: Behavioral Time Seen by Provider: 05/15/23 04:57 History of Present Illness HPI Narrative: patient is a 72-year-old female with a history of depression Polanco's palsy diabetes hyperlipidemia presented today with having headaches also having thoughts of wanting to hurt herself. Patient denies any specific plans. Has chronic weakness to the left upper and bilateral lower extremity. Patient claims does weakness has been ongoing for over 5 years. The headache is associated with no change in vision. Patient is from home. Patient felt very upset because her brother recently . denies any alcohol drugs. Related Data Home Medications Medication Instructions Recorded Confirmed cetirizine 10 mg tablet 10 mg PO DAILY 12/09/22 02/13/23 insulin aspart U-100 100 unit/mL 1 sliding scale dose subcut TIDAC 12/09/22 02/13/23 (3 mL) subcutaneous pen (Novolog FlexPen U-100 Insulin aspart) insulin glargine 100 unit/mL (3 30 unit subcut BEDTIME 12/09/22 02/13/23 mL) subcutaneous pen (Lantus Solostar U-100 Insulin) meloxicam 15 mg tablet 15 mg PO DAILY 12/09/22 02/13/23 semaglutide 1 mg/dose (4 mg/3 mL) 1 mg subcut WE@0900 12/09/22 02/13/23 subcutaneous pen injector (Ozempic) acetaminophen 650 mg 650 mg PO Q6H PRN pain 12/16/22 02/13/23 tablet,extended release mirtazapine 15 mg tablet 15 mg PO BEDTIME 12/16/22 02/13/23 albuterol sulfate 90 mcg/actuation 2 puff inhalation Q4H PRN 02/13/23 02/13/23 aerosol inhaler Shortness Of Breath Or Wheezing citalopram 20 mg tablet 20 mg PO DAILY 02/13/23 02/13/23 gabapentin 300 mg capsule 300 mg PO TID 02/13/23 02/13/23 peg [id number] 1 1 drp ophthalmic (eye) QID PRN Dry 02/13/23 02/13/23 %-0.2 %-0.2 % eye drops (Dry Eye Eyes Relief) Previous Rx's Medication Instructions Recorded ascorbic acid (vitamin C) 500 mg 500 mg PO DAILY 30 days #30 tabs 11/19/22 tablet (Vitamin C) aspirin 81 mg tablet,delayed 81 mg PO DAILY 30 days #30 tabs 11/19/22 release blood sugar diagnostic (FreeStyle #150 ea 11/19/22 Lite Strips) cholecalciferol (vitamin D3) 50 50 mcg PO DAILY 30 days #30 caps 11/19/22 mcg (2,000 unit) capsule clonazepam 0.5 mg tablet 0.5 mg PO DAILY PRN Anxiety 30 11/19/22 days #30 tabs lancets 33 gauge (TRUEplus Lancets) #100 ea 11/19/22 metformin 500 mg tablet,extended 500 mg PO BID #60 tabs 11/19/22 release 24 hr pen needle, diabetic 32 gauge x #50 ea 11/19/22 simethicone 80 mg chewable tablet 80 mg PO TID PRN gas 30 days #30 11/19/22 (Gas Relief (simethicone)) tabs topiramate 50 mg tablet 50 mg PO BID 30 days #60 tabs 11/19/22 cyclobenzaprine 5 mg tablet 5 mg PO TID PRN muscle spasms 30 12/16/22 days #90 tabs nitrofurantoin 100 mg PO Q12H 7 days #14 caps 02/17/23 monohydrate/macrocrystals 100 mg capsule (Macrobid) Allergies Allergy/AdvReac Type Severity Reaction Status Date / Time COVID-19 vacc, bv (Orig, Allergy Severe Swelling Verified 05/15/23 03:09 Omicron BA.4/5) (Pfizer) [From Pfizer COVID Bival(12y up)(PF)] homosalate [From Coppertone] Allergy Intermediate RASH, itchy Verified 05/15/23 03:09 octinoxate [From Coppertone] Allergy Intermediate RASH, itchy Verified 05/15/23 03:09 oxybenzone [From Coppertone] Allergy Intermediate RASH, itchy Verified 05/15/23 03:09 pioglitazone Allergy Unknown Unknown Verified 05/15/23 03:09 pollen extracts Allergy Unknown Unknown Verified 05/15/23 03:09 diovan Allergy Unknown rash Uncoded 05/15/23 03:09 Review of Systems Review of Systems: Positive depression. 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 Dyslipidemia Diabetes type 2, uncontrolled Surgical History H/O: hysterectomy Family History Family History Father Osteoporosis Mother Stroke Cancer Social History Social History Household Members: None Housing: Apartment Do you presently have visiting nurse or other home services: Yes (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) Unable to assess alcohol history related to: Unable to respond Alcohol intake: former Patient Tobacco Use Status: Never used Tobacco Smoked in Last 30 Days: No Use of substances other than those prescribed or required for medical reasons: No Substance Use Type: Marijuana Advance Directives: No Advance Directives Information Provided: No service: No Sexual orientation: Straight/Heterosexual Physical Exam Vital Signs: Vital Signs: Last Vital Signs Temp 98.0 F 05/15/23 05:20 Pulse 88 05/15/23 05:20 Resp 17 05/15/23 03:06 BP 133/67 05/15/23 05:20 Pulse Ox 99 05/15/23 05:20 O2 Del Method Room Air 05/15/23 05:20 BMI result Body Mass Index 35.9 Appearance: Alert. Oriented X3. No acute distress. Eyes: Pupils equal, round and reactive to light. patient's intra-ocular pressure was 18 on the right 17 on the left. visual acuity as per documentation from nursing. They were 20/100 on the right side 20/60 on the left side. ENT: Pharynx normal. Neck: Normal inspection. Neck supple. No lymph nodes noted. No crepitus CVS: Normal heart rate and rhythm. Pulses normal. Normal S1 and S2 Respiratory: No respiratory distress. Breath sounds normal. No Wheezing. No rales Abdomen: Soft and nontender. No rigidity. No distention. good BS x4 Skin: Skin warm and dry. Normal skin color. Normal skin turgor. Extremities: No lower extremity edema. Neurovascular intact to all extremities. No Lacerations. No Rash Neuro: Oriented X 3. positive facial droop on the left side. Positive weakness 4/5 on the left arm. 5/5 in the right arm. Positive bilateral lower extremity weakness 3/5 bilaterally Medications Administered Discontinued Medications Generic Name Dose Route Start Last Admin Trade Name Ajith PRN Reason Stop Dose Admin Sodium Chloride 1,000 mls @ 999 mls/hr 05/15/23 06:15 05/15/23 07:01 Ns IV 05/15/23 07:15 999 mls/hr .Q1H1M DIANA Administration Insulin Human Regular 5 unit 05/15/23 05:00 05/15/23 05:17 Insulin Regular, Human 100 Unit/Ml 3 Ml Vial IVPUSH 05/15/23 05:01 5 unit ONCE ONE Administration Medical Decision Making Medical Decision Making [facility] Narrative: CT scan of the head By my interpretation is grossly negative for any acute evidence of bleeding. No acute evidence for subarachnoid hemorrhage. No mass noted. No fracture noted. I reviewed radiology's reading. Patient's sed rate is normal CRP is normal there is no evidence for temporal arteritis. Patient's intra-ocular pressure are less than 20 there is no evidence for glaucoma has chronic weakness on the left side. This is not new symptoms been ongoing for greater than 5 years. Will have patient get evaluated by crisis as patient has thoughts of wanting to kill herself. Feel very depressed since her brother recently passed. Currently in stable condition awaiting care team evaluation. Patient initial sugar was high. Given insulin given fluids. Sugar is down to 200 range. Not the acute issue. Differential Diagnosis intracranial bleed, fracture, stroke, glaucoma, temporal arteritis , depression, fibromyalgia Admission/Observation Consideration of admission/observation: Escalation of care including admission/observation considered Lab Data [facility] Lab Attestation statement: I reviewed the patient's lab results. 05/15/23 04:20 05/15/23 04:20 Labs: Lab Results 05/15/23 05/15/23 05/15/23 Range/Units 04:20 04:23 06:22 WBC 8.6 (4.8-10.8) X10*3/uL RBC 4.38 (4.20-5.50) X10*6/uL Hgb 13.7 (12.0-16.0) g/dl Hct 40.9 (37.0-47.0) % MCV 93.4 (80.0-98.0) fL MCH 31.3 (27.0-33.0) pg MCHC 33.5 (31.0-35.0) g/dl RDW 12.7 (11.0-16.0) % Plt Count 227 (160-400) X10*3/uL MPV 11.5 (9.4-12.3) fL Immature Gran % (Auto) 0.2 (0.0-0.4) % Neut % (Auto) 72.7 (45-73) % Lymph % (Auto) 21.7 (20-40) % [place] % (Auto) 4.6 (2-11) % Eos % (Auto) 0.6 (0-4) % Baso % (Auto) 0.2 (0-2) % Lymph # (Auto) 1.9 (1.2-4.9) X10*3/uL [place] # (Auto) 0.4 (0.1-1.2) X10*3/uL Eos # (Auto) 0.1 (0.0-0.4) X10*3/uL Baso # (Auto) 0.0 (0.0-0.2) X10*3/uL Abs Immat Gran (auto) 0.02 (0.00-0.03) X10*3/uL Absolute Neuts (auto) 6.2 (2.0-8.3) x10*3/uL Absolute Nucleated RBC 0.000 (0.0-0.012) X10*3/uL Nucleated RBC % (auto) 0.0 (0.0-0.2) /100WBC ESR 13 (0-20) MM/HR Sodium 137 (135-145) mmol/L Potassium 4.6 (3.3-5.1) mmol/L Chloride 108 (96-108) mmol/L Carbon Dioxide 22 (22-29) mmol/L Anion Gap 12 (12-20) BUN 15 (9-16) mg/dL Creatinine 1.09 (0.5-1.4) mg/dL Estim Creat Clear Calc 51.7 Estimated GFR 50 POC Glucose 275 H (60-115) mg/dL Random Glucose 373 H* (60-115) mg/dL Calcium 9.2 D (8.4-10.2) mg/dL Total Bilirubin 0.5 (0.0-1.0) mg/dL AST 23 (5-31) U/L ALT 25 (0-31) U/L Alkaline Phosphatase 86 (39-117) U/L Troponin I High Sens 4.5 (<3.5-17.0) ng/L C-Reactive Protein 0.13 (< or = 0.50) mg/dL Total Protein 7.5 (6.5-8.0) g/dL Albumin 3.9 (3.5-5.0) g/dL TSH 1.42 (0.32-4.0) uIU/mL Urine Color Yellow Urine Appearance Clear Urine pH 7.0 (5.0-9.0) Ur Specific [place] 1.025 (1.005-1.025) Urine Protein Negative (Neg-Trace) mg/dL Urine Glucose (UA) >=1000 H (Negative) mg/dL Urine Ketones 15 (Negative) mg/dL Urine Blood Negative (Negative) Urine Nitrite Positive H (Negative) Ur Leukocyte Esterase Negative (Negative) Urine RBC 0-2 (0-2) /HPF Urine WBC 0-5 (0-5) /HPF Ur Squamous Epith Cells 3-5 (0-2) /HPF Urine Bacteria 4+ (None Seen) Hyaline Casts 3-5 (0-2) /LPF Salicylates < 5.0 L (15-30) mg/dL Urine Opiates Screen Not Detected (Not Detect) Urine Fentanyl Screen Not Detected (Not Detect) Acetaminophen < 3 (<30) mcg/mL Ur Barbiturates Screen Not Detected (Not Detect) Ur Phencyclidine Scrn Not Detected (Not Detect) Ur Amphetamines Screen Not Detected (Not Detect) U Benzodiazepines Scrn Not Detected (Not Detect) Urine Cocaine Screen Not Detected (Not Detect) U Marijuana (THC) Screen Not Detected (Not Detect) Ethyl Alcohol < 10 mg/dL Independent Interpretation I performed an independent interpretation of an: EKG ( sinus rhythm heart rate is 100 [place] QRS QTC within normal limits there is nonspecific T-wave flattening diffusely.) Radiology Impression Discussion of test interpretation with radiology: I have reviewed the radiologist's reading. External Record Review External record reviewed: Office record Previous neurology record reviewed Chronic Conditions Patient?s care impacted by: Diabetes schizophrenia, Polanco's palsy Social Determinants Patient?s care significantly limited by Social Determinants of Health including: Unemployment Discharge Plan Discharge Clinical Impression: Chronic schizophrenia, Depression Patient Disposition: Still a Patient Prescriptions: No Action simethicone [Gas Relief (simethicone)] 80 mg Tablet,Chewable 80 mg PO TID PRN (Reason: gas) 30 Days Qty: 30 0RF clonazepam 0.5 mg tablet 0.5 mg PO DAILY PRN (Reason: Anxiety) 30 Days Qty: 30 0RF (DME) FreeStyle Lite Strips Strip See Rx Instructions .ROUTE .MEDSUPPLY Qty: 150 11RF Rx Instructions: 4 times a day aspirin 81 mg tablet,delayed release (DR/EC) 81 mg PO DAILY 30 Days Qty: 30 0RF ascorbic acid (vitamin C) [Vitamin C] 500 mg Tablet 500 mg PO DAILY 30 Days Qty: 30 0RF metformin 500 mg tablet extended release 24 hr 500 mg PO BID Qty: 60 0RF topiramate 50 mg tablet 50 mg PO BID 30 Days Qty: 60 0RF cholecalciferol (vitamin D3) 50 mcg (2,000 unit) capsule 50 mcg PO DAILY 30 Days Qty: 30 0RF (DME) pen needle, diabetic 32 gauge x 5/32 needle See Rx Instructions subcut .MEDSUPPLY Qty: 50 0RF Rx Instructions: As directed (DME) lancets [TRUEplus Lancets] 33 gauge misc See Rx Instructions .ROUTE .MEDSUPPLY Qty: 100 0RF Rx Instructions: As directed test blood sugar 4 times a day cetirizine 10 mg tablet 10 mg PO DAILY meloxicam 15 mg tablet 15 mg PO DAILY insulin aspart U-100 [Novolog FlexPen U-100 Insulin] 100 unit/mL (3 mL) insulin pen 1 sliding scale dose subcut TIDAC insulin glargine [Lantus Solostar U-100 Insulin] 100 unit/mL (3 mL) insulin pen 30 unit subcut BEDTIME Ozempic 1 mg/dose (4 mg/3 mL) pen injector 1 mg subcut WE@0900 Rx Instructions: on wednesdays citalopram 20 mg tablet 20 mg PO DAILY Dry Eye Relief 1-0.2-0.2 % drops 1 drp ophthalmic (eye) QID PRN (Reason: Dry Eyes) albuterol sulfate 90 mcg/actuation Hfa Aerosol Inhaler 2 puff INHALATION Q4H PRN (Reason: Shortness Of Breath Or Wheezing) gabapentin 300 mg capsule 300 mg PO TID nitrofurantoin monohyd/m-cryst [Macrobid] 100 mg capsule 100 mg PO Q12H 7 Days Qty: 14 0RF Rx Instructions: must administer with a meal/food cyclobenzaprine 5 mg tablet 5 mg PO TID PRN (Reason: muscle spasms) 30 Days Qty: 90 3RF acetaminophen 650 mg tablet extended release 650 mg PO Q6H PRN (Reason: pain) mirtazapine 15 mg tablet 15 mg PO BEDTIME Interventions: Bremer-Suicide Risk Severity Scale Last Done: 05/15/23 03:18
[2023-05-15 09:56] VITALS: BP 130/67; PULSE 88; RESP 22; O2SAT 97
--- NOTE | 2023-05-15 09:56 | PC.NURSE ---
SITTER AT BEDSIDE. AWAITING CARE TEAM
[2023-05-15 11:17] VITALS: BP 146/66; PULSE 87; RESP 19; O2SAT 98
--- NOTE | 2023-05-15 11:50 | PC.NURSE ---
Patient alert and oriented, reports back of head still hurts and she wants to sleep. Patient declines wanting medication for headache
[2023-05-15 13:11] LABS: Glucose, Whole Blood 284 mg/dL (60-115)
[2023-05-15 14:16] VITALS: BP 151/70; PULSE 96; RESP 19; O2SAT 98
--- NOTE | 2023-05-15 15:58 | PC.NURSE ---
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
--- NOTE | 2023-05-15 15:58 | PC.NURSE ---
Transport booked via ambulance
--- NOTE | 2023-05-15 19:00 | PC.NURSE ---
Transport came to pick patient up, EMS needed to transport another patient to [facility]. Transportation re booked, patient aware
== END 2023-05-15 21:00 | disposition home or self-care (01) ==
PROVIDERS: Emergency Provider Emergency Medicine Emergency Medical Services
DX: F25.9 Schizoaffective disorder, unspecified (principal); F33.1 Major depressive disorder, recurrent, moderate; R51.9 Headache, unspecified; R53.1 Weakness; R07.89 Other chest pain; H53.143 Visual discomfort, bilateral; Z79.899 Other long term (current) drug therapy
CPT/HCPCS: 36415; 70450; 80053; 80143; 80179; 80307; 81001; 82947; 84443; 84484; 85025; 85652; 86140; 87086; 93005; 96361; 96374; 99285; S9485

== ENCOUNTER 2023-09-27 14:21 | Emergency (ER) | payer OTHER, SELFPAY ==
--- NOTE | ~2023-09-27 | US_ITS ---
EXAMINATION: US VENOUS ULTRASOUND WITH DOPPLER LOWER EXTREMITY, BILATERAL CLINICAL INFORMATION: Bilateral lower extremity pain and swelling. COMPARISON: None available. TECHNIQUE: Ultrasound of the deep veins is performed from the hip to the calf with compression sonography and color and pulse Doppler assessment. Spectral analysis with color-flow imaging is performed. FINDINGS: Technologist reports examination very limited by patient discomfort. Not able to compress mid thigh on the right and not able to compress the entire left leg. RIGHT: Study limited by inability to compress the extremity. The visualized common femoral vein, superficial femoral vein, profunda femoral vein, popliteal vein, and the trifurcation region demonstrates vascular flow, without evidence of obvious deep venous thrombosis. There is vascular flow seen in the visualized calf veins. There is no significant popliteal fossa cyst. . LEFT: Very limited study, patient unable to tolerate compression. There is vascular flow in the visualized common femoral vein, superficial femoral vein, profunda femoral vein, popliteal vein, and the trifurcation region without evidence of obvious deep venous thrombosis. There is vascular flow seen in the visualized calf veins. There is no significant popliteal fossa cyst. . If the patient's symptoms persist, followup ultrasound in 5 days 7 days might be of value to exclude proximal propagation from a non-visualized calf vein. US/US venous duplex LE BI IMPRESSION: Study very limited by patient discomfort. Patient unable to tolerate compression. No obvious deep vein thrombosis identified in bilateral lower extremities. If the patient's symptoms persist, short-term followup ultrasound such as in 3-5 days might be of value to exclude nonvisualized thrombosis.
--- NOTE | ~2023-09-27 | CT_ITS ---
CT/CT abdomen pelvis wo IV con IMPRESSION: 1. No acute intra-abdominal process seen. 2. Nonobstructive new radiopaque stone lower pole right kidney. Fleischner guidelines were followed. EXAMINATION: CT ABDOMEN AND PELVIS WITHOUT CONTRAST CLINICAL INFORMATION: Abdominal pain COMPARISON: CT abdomen and pelvis 07/20/2020 TECHNIQUE: Multidetector volumetric imaging was performed from the superior aspect of the liver through the pubic symphysis. Sagittal and coronal reformatted images were obtained on the technologist's workstation. This CT examination was performed using dose optimization techniques as appropriate, variously including the following: *Automated exposure control *Adjustment of mA and/or kV according to patient size (this includes techniques or standardized protocols for targeted exams where dose is matched to indication/reason for exam; i.e. extremities or head) *Use of iterative reconstruction technique DLP: 1077 mGy-cm FINDINGS: LUNG BASES: The lung bases are clear. The heart size is normal. There is mild coronary artery calcifications. No pericardial effusion seen. LIVER, GALLBLADDER, AND BILIARY TREE: The liver is normal in size, shape, and attenuation. No focal hepatic lesion or biliary ductal dilatation is present. The gallbladder is unremarkable with no evidence of radiopaque gallstones, gallbladder wall thickening, or obvious pericholecystic inflammatory changes. PANCREAS: Unremarkable. SPLEEN: Unremarkable. ADRENAL GLANDS: Both adrenal glands are slightly prominent but no focal nodules seen. KIDNEYS AND URETERS: The kidneys are normal in size, shape, and attenuation. There is a tumor radiopaque stone lower pole right kidney without caliectasis or hydronephrosis. The ureters are normal caliber. BLADDER: The bladder is mildly distended but unremarkable. No wall thickening seen. GASTROINTESTINAL TRACT: The small and large bowel are unremarkable. The appendix is unremarkable. ABDOMINAL WALL: No significant hernia is appreciated. LYMPH NODES: Normal. VASCULAR: Unremarkable. PELVIC VISCERA: The uterus is surgically absent or atrophied. No adnexal mass or free fluid seen. There are 1.6 cm lymph nodes in the left groin no abnormal lymph nodes seen in the right groin. OSSEOUS STRUCTURES: No aggressive lytic or sclerotic process seen. There is mild degenerative bilateral facet joint disease L5/S1 disc level
[2023-09-27 14:34] VITALS: BP 139/75; BP 168/100; PULSE 94; PULSE 98; RESP 18; TEMP 36.9; O2SAT 8; O2SAT 96; BMI 37.9
[2023-09-27 14:48] LABS: Glucose, Whole Blood 465 mg/dL (60-115)
--- NOTE | 2023-09-27 15:13 | ECG_ITS ---
Test Reason : CHEST PAIN Blood Pressure : / mmHG Vent. Rate : 095 BPM Atrial Rate : 095 BPM P-R Int : 142 ms QRS Dur : 080 ms QT Int : 348 ms P-R-T Axes : 064 005 034 degrees QTc Int : 437 ms Normal sinus rhythm Normal ECG When compared with ECG of 15-MAY-2023 03:20, No significant change was found Referred By: Jayant Fletcher Electronically Signed By:Shashi Johnston
[2023-09-27] MEDS: 0.9 % Sodium Chloride 1,000 ML 999 ML IV (15:28)
[2023-09-27 15:37] LABS: MANUAL DIFF FLAG NO
[2023-09-27 15:39] LABS: Basophils Percent Auto 0.3 % (0-2); Eosinophils Percent Auto 0.4 % (0-4); Hematocrit 39.1 % (37.0-47.0); Hemoglobin 13.5 g/dl (12.0-16.0); Imm Gran Abs Auto 0.02 X10*3/uL (0.00-0.03); Imm Gran Pct Auto 0.3 % (0.0-0.4); Lymphocytes Percent Auto 26.9 % (20-40); Mean Corpuscular HGB Conc 34.5 g/dl (31.0-35.0); Mean Corpuscular Hemoglobin 32.1 pg (27.0-33.0); Mean Corpuscular Volume 92.9 fL (80.0-98.0); Monocytes Absolute Auto 0.3 X10*3/uL (0.1-1.2); Monocytes Percent Auto 4.5 % (2-11); Neutrophils Absolute Auto 4.9 x10*3/uL (2.0-8.3); Neutrophils Percent Auto 67.6 % (45-73); Platelet Count 216 X10*3/uL (160-400); Red Blood Count 4.21 X10*6/uL (4.20-5.50); Red Cell Distribution Width 12.5 % (11.0-16.0); White Blood Count 7.3 X10*3/uL (4.8-10.8)
[2023-09-27 16:00] VITALS: BP 137/52; PULSE 83; RESP 13; TEMP 36.5; O2SAT 97
--- NOTE | 2023-09-27 16:27 | PC.NURSE ---
PT RANG HILL TO REPORT URINE INCONTINENCE. INCONTINENT CARE DONE, PT BOOSTED UP IN BED, CALL BED HANDED TO PT. NO OTHER COMPLAINTS.
--- NOTE | 2023-09-27 16:53 | ED.GENADULT ---
HPI - General Adult General Chief complaint: General Medical Stated complaint: Left sided kidney pain, L ankle edema, BGL 498 Time Seen by Provider: 09/27/23 16:45 Source: patient and EMS Mode of arrival: EMS Limitations: no limitations History of Present Illness HPI narrative: Patient comes to the emergency room complaining of suprapubic abdominal pain, right flank pain and dysuria. Patient states that it has been present for about 1 month. Patient denies nausea vomiting or diarrhea. Also, patient complaining of bilateral lower extremity pain and swelling that has gradually been getting worse over the last month Related Data Home Medications Medication Instructions Recorded Confirmed cetirizine 10 mg tablet 10 mg PO DAILY 12/09/22 02/13/23 insulin aspart U-100 100 unit/mL 1 sliding scale dose subcut TIDAC 12/09/22 02/13/23 (3 mL) subcutaneous pen (Novolog FlexPen U-100 Insulin aspart) insulin glargine 100 unit/mL (3 30 unit subcut BEDTIME 12/09/22 02/13/23 mL) subcutaneous pen (Lantus Solostar U-100 Insulin) meloxicam 15 mg tablet 15 mg PO DAILY 12/09/22 02/13/23 semaglutide 1 mg/dose (4 mg/3 mL) 1 mg subcut WE@0900 12/09/22 02/13/23 subcutaneous pen injector (Ozempic) acetaminophen 650 mg 650 mg PO Q6H PRN pain 12/16/22 02/13/23 tablet,extended release mirtazapine 15 mg tablet 15 mg PO BEDTIME 12/16/22 02/13/23 albuterol sulfate 90 mcg/actuation 2 puff inhalation Q4H PRN 02/13/23 02/13/23 aerosol inhaler Shortness Of Breath Or Wheezing citalopram 20 mg tablet 20 mg PO DAILY 02/13/23 02/13/23 gabapentin 300 mg capsule 300 mg PO TID 02/13/23 02/13/23 peg [id number] 1 1 drp ophthalmic (eye) QID PRN Dry 02/13/23 02/13/23 %-0.2 %-0.2 % eye drops (Dry Eye Eyes Relief) Previous Rx's Medication Instructions Recorded ascorbic acid (vitamin C) 500 mg 500 mg PO DAILY 30 days #30 tabs 11/19/22 tablet (Vitamin C) aspirin 81 mg tablet,delayed 81 mg PO DAILY 30 days #30 tabs 11/19/22 release blood sugar diagnostic (FreeStyle #150 ea 11/19/22 Lite Strips) cholecalciferol (vitamin D3) 50 50 mcg PO DAILY 30 days #30 caps 11/19/22 mcg (2,000 unit) capsule clonazepam 0.5 mg tablet 0.5 mg PO DAILY PRN Anxiety 30 11/19/22 days #30 tabs lancets 33 gauge (TRUEplus Lancets) #100 ea 11/19/22 metformin 500 mg tablet,extended 500 mg PO BID #60 tabs 11/19/22 release 24 hr pen needle, diabetic 32 gauge x #50 ea 11/19/22 simethicone 80 mg chewable tablet 80 mg PO TID PRN gas 30 days #30 11/19/22 (Gas Relief (simethicone)) tabs topiramate 50 mg tablet 50 mg PO BID 30 days #60 tabs 11/19/22 cyclobenzaprine 5 mg tablet 5 mg PO TID PRN muscle spasms 30 12/16/22 days #90 tabs nitrofurantoin 100 mg PO Q12H 7 days #14 caps 02/17/23 monohydrate/macrocrystals 100 mg capsule (Macrobid) cefuroxime axetil 250 mg tablet 250 mg PO BID #14 tabs 09/27/23 Allergies Allergy/AdvReac Type Severity Reaction Status Date / Time COVID-19 vacc, bv (Orig, Allergy Severe Swelling Verified 05/15/23 03:09 Omicron BA.4/5) ([facility]) [From Pfizer COVID Bival(12y up)()] homosalate [From Coppertone] Allergy Intermediate RASH, itchy Verified 05/15/23 03:09 octinoxate [From Coppertone] Allergy Intermediate RASH, itchy Verified 05/15/23 03:09 oxybenzone [From Coppertone] Allergy Intermediate RASH, itchy Verified 05/15/23 03:09 pioglitazone Allergy Unknown Unknown Verified 05/15/23 03:09 pollen extracts Allergy Unknown Unknown Verified 05/15/23 03:09 diovan Allergy Unknown rash Uncoded 05/15/23 03:09 Review of Systems Review of Systems: Constitutional : No Weight loss, No Fever, No Chills, No Night Sweats, No Fatigue, No Malaise ENT/Mouth : No Hearing loss, No Ear Pain, No Nasal Congestion, No Sinus Pain, No Hoarseness, No sore throat, No Rhinorrhea, No Swallowing Difficulty Eyes: No Eye Pain, No Swelling, No Redness, No Foreign Body, No Discharge, No Vision Changes Cardiovascular : No Chest Pain, No SOB, No Dyspnea on Exertion, No Orthopnea, No Edema, No Palpitations Respiratory : No Cough, No Sputum, No Wheezing, No Smoke Exposure, No Dyspnea Gastrointestinal : No Nausea, No Vomiting, No Diarrhea, No Constipation, No abdominal Pain, No Hematochezia, No Melena Genitourinary : Complaining of dysuria no hematuria, complaining of left-sided flank suprapubic discomfort with urination Musculoskeletal : Complaining of lower extremity pain and swelling bilaterally No joint pain, No Myalgias, No Joint Swelling Skin : No Skin Lesions, No rash Neuro : No Weakness, No Numbness, No Paresthesias, No Loss of Consciousness, No Dizziness, No Headache Psych : No Anxiety/Panic, No Depression, No SI/HI/AH/VH, No Social Issues, Heme/Lymph: No Bruising, No Bleeding,No Lymphadenopathy Endocrine : No Polyuria, No Polydipsia, No Temperature Intolerance [facility] Past Medical History Medical History Polanco's palsy Elevated hemoglobin A1c Left arm weakness Numbness and tingling in left arm Left shoulder pain Thoracic outlet syndrome Neck pain Left-sided weakness Colon cancer screening Microscopic hematuria Lung cancer Vitamin D deficiency Depression Fibromyalgia Obesity (BMI 30-39.9) Diabetic polyneuropathy associated with type 2 diabetes mellitus Hypertension FCI (current) use of insulin Dyslipidemia Diabetes type 2, uncontrolled Surgical History H/O: hysterectomy Family History Family History Father Osteoporosis Mother Stroke Cancer Social History Social History Household Members: None Housing: Apartment Do you presently have visiting nurse or other home services: Yes (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) Unable to assess alcohol history related to: Unable to respond Alcohol intake: former Patient Tobacco Use Status: Never used Tobacco Smoked in Last 30 Days: No Use of substances other than those prescribed or required for medical reasons: No Substance Use Type: Marijuana Advance Directives: No Advance Directives Information Provided: No service: No Sexual orientation: Straight/Heterosexual Physical Exam ED Vital Signs: Vital Signs - 24 hr 09/27/23 14:34 09/27/23 16:00 09/27/23 17:55 Temperature 98.5 F 97.7 F 98.0 F Pulse Rate 94 83 85 Respiratory Rate 18 13 11 L Blood Pressure 139/75 137/52 L 139/63 Pulse Oximetry 96 97 97 Oxygen Delivery Method Room Air Room Air Room Air 09/27/23 18:57 Temperature 97.7 F Pulse Rate 77 Respiratory Rate 17 Blood Pressure 134/66 Pulse Oximetry 100 Oxygen Delivery Method Room Air BMI result Body Mass Index 37.9 Const Other: Appearance: Alert. Oriented X3. No acute distress. Eyes: Pupils equal, round and reactive to light. ENT: Pharynx normal. Neck: Normal inspection. Neck supple. No lymph nodes noted. No crepitus CVS: Normal heart rate and rhythm. Pulses normal. Normal S1 and S2 Respiratory: No respiratory distress. Breath sounds normal. No Wheezing. No rales Abdomen: Soft , mild suprapubic discomfort with palpation No rigidity. No distention. No CVA tenderness Skin: Skin warm and dry. Normal skin color. Normal skin turgor. Extremities: No lower extremity edema. No Lacerations. No Rash both lower extremities have good temperature, no significant pain on palpation on the dorsum, bilateral pain to palpation in the calves Neuro: Oriented X 3. No motor deficit. No sensory deficit. Moving all extremities. No slurred speech. CN 2 through 12 grossly intact Psych: calm, cooperative, normal affect Course Course Course Narrative: Ultrasound of lower extremity is pending Medications Administered Discontinued Medications Generic Name Dose Route Start Last Admin Trade Name Freq PRN Reason Stop Dose Admin Acetaminophen 975 mg 09/27/23 19:14 09/27/23 19:19 Acetaminophen 325 Mg Tablet PO 09/27/23 19:15 975 mg ONCE ONE Administration Sodium Chloride 1,000 mls @ 999 mls/hr 09/27/23 15:15 09/27/23 16:46 Ns IV 09/27/23 16:15 Infused .Q1H1M DIANA Infusion Sodium Chloride 1,000 mls @ 999 mls/hr 09/27/23 17:04 09/27/23 19:46 Ns IVCONT 09/27/23 18:04 Infused .Q1H1M ONE Infusion Insulin Human Regular 10 unit 09/27/23 17:04 09/27/23 17:40 Insulin Regular, Human 100 Unit/Ml 3 Ml Vial IVPUSH 09/27/23 17:05 10 unit ONCE ONE Administration Medical Decision Making Medical Decision Making [facility] Narrative: -my interpretation of labs: Normal hematology , point of care 465, chemistry within normal limits. Beta hydroxybutyrate slightly elevated. Anion gap closed. Patient's urine shows positive nitrite. - I reviewed patient's previous labs, patient frequently has nitrites in the urine. But sometimes it only gross mixed bacterial giuseppe. Given patient's symptoms we will go ahead and give Macrobid. -Sepsis not suspected, no fever, no episodes of hypotension -patient receiving IV fluids, insulin -my interpretation CT scan, negative for ureterolithiasis -patient's glucose improved from 463 to 228 after 10 units of insulin and fluids -patient will follow-up with her primary care physician. -interpretation of ultrasound of lower extremities, no obvious DVT. Per Radiology, it was a limited study due to patient discomfort. Patient's lower extremities are both warm, toes well perfused, no suspicion for arterial occlusion -patient states that the pain is worse when she walks -patient instructed to follow-up with vascular surgery. Patient may be experiencing claudication Differential Diagnosis Differential Diagnoses: The differential diagnosis associated with the presentation includes (UTI, pyelonephritis, DVT) Admission/Observation Consideration of admission/observation: Escalation of care including admission/observation considered (Can patient's initial presentation and history, patient considered) Lab Data [facility] Lab Attestation statement: I reviewed the patient's lab results. 09/27/23 15:26 09/27/23 17:06 Labs: Lab Results 09/27/23 09/27/23 09/27/23 Range/Units 14:34 15:26 16:56 WBC 7.3 (4.8-10.8) X10*3/uL RBC 4.21 (4.20-5.50) X10*6/uL Hgb 13.5 (12.0-16.0) g/dl Hct 39.1 (37.0-47.0) % MCV 92.9 (80.0-98.0) fL MCH 32.1 (27.0-33.0) pg MCHC 34.5 (31.0-35.0) g/dl RDW 12.5 (11.0-16.0) % Plt Count 216 (160-400) X10*3/uL MPV 12.0 (9.4-12.3) fL Immature Gran % (Auto) 0.3 (0.0-0.4) % Neut % (Auto) 67.6 (45-73) % Lymph % (Auto) 26.9 (20-40) % [place] % (Auto) 4.5 (2-11) % Eos % (Auto) 0.4 (0-4) % Baso % (Auto) 0.3 (0-2) % Lymph # (Auto) 2.0 (1.2-4.9) X10*3/uL [place] # (Auto) 0.3 (0.1-1.2) X10*3/uL Eos # (Auto) 0.0 (0.0-0.4) X10*3/uL Baso # (Auto) 0.0 (0.0-0.2) X10*3/uL Abs Immat Gran (auto) 0.02 (0.00-0.03) X10*3/uL Absolute Neuts (auto) 4.9 (2.0-8.3) x10*3/uL Absolute Nucleated RBC 0.000 (0.0-0.012) X10*3/uL Nucleated RBC % (auto) 0.0 (0.0-0.2) /100WBC Sodium (135-145) mmol/L Potassium (3.3-5.1) mmol/L Chloride (96-108) mmol/L Carbon Dioxide (22-29) mmol/L Anion Gap (12-20) BUN (9-16) mg/dL Creatinine (0.5-1.4) mg/dL Estim Creat Clear Calc Estimated GFR POC Glucose 465 H* (60-115) mg/dL Random Glucose (60-115) mg/dL Calcium (8.4-10.2) mg/dL Magnesium (1.6-2.6) mg/dL Total Bilirubin (0.0-1.0) mg/dL Direct Bilirubin (0.0-0.5) mg/dL AST (5-31) U/L ALT (0-31) U/L Alkaline Phosphatase (39-117) U/L Total Protein (6.5-8.0) g/dL Albumin (3.5-5.0) g/dL Lipase (8-78) U/L Beta-Hydroxybutyrate (0.02-0.27) mmol/L Urine Color Yellow Urine Appearance Turbid Urine pH 8.5 (5.0-9.0) Ur Specific [place] 1.020 (1.005-1.025) Urine Protein Negative (Neg-Trace) mg/dL Urine Glucose (UA) >=1000 H (Negative) mg/dL Urine Ketones 15 (Negative) mg/dL Urine Blood Negative (Negative) Urine Nitrite Positive H (Negative) Ur Leukocyte Esterase Negative (Negative) Urine RBC 0-2 (0-2) /HPF Urine WBC 0-5 (0-5) /HPF Ur Squamous Epith Cells 0-2 (0-2) /HPF Urine Bacteria 4+ (None Seen) Hyaline Casts 0-2 (0-2) /LPF 09/27/23 09/27/23 Range/Units 17:06 19:21 WBC (4.8-10.8) X10*3/uL RBC (4.20-5.50) X10*6/uL Hgb (12.0-16.0) g/dl Hct (37.0-47.0) % MCV (80.0-98.0) fL MCH (27.0-33.0) pg MCHC (31.0-35.0) g/dl RDW (11.0-16.0) % Plt Count (160-400) X10*3/uL MPV (9.4-12.3) fL Immature Gran % (Auto) (0.0-0.4) % Neut % (Auto) (45-73) % Lymph % (Auto) (20-40) % [place] % (Auto) (2-11) % Eos % (Auto) (0-4) % Baso % (Auto) (0-2) % Lymph # (Auto) (1.2-4.9) X10*3/uL [place] # (Auto) (0.1-1.2) X10*3/uL Eos # (Auto) (0.0-0.4) X10*3/uL Baso # (Auto) (0.0-0.2) X10*3/uL Abs Immat Gran (auto) (0.00-0.03) X10*3/uL Absolute Neuts (auto) (2.0-8.3) x10*3/uL Absolute Nucleated RBC (0.0-0.012) X10*3/uL Nucleated RBC % (auto) (0.0-0.2) /100WBC Sodium 137 (135-145) mmol/L Potassium 4.8 (3.3-5.1) mmol/L Chloride 108 (96-108) mmol/L Carbon Dioxide 23 (22-29) mmol/L Anion Gap 11 L (12-20) BUN 14 (9-16) mg/dL Creatinine 1.06 (0.5-1.4) mg/dL Estim Creat Clear Calc 52.7 Estimated GFR 51 POC Glucose 228 H (60-115) mg/dL Random Glucose 392 H* (60-115) mg/dL Calcium 9.2 (8.4-10.2) mg/dL Magnesium 1.8 (1.6-2.6) mg/dL Total Bilirubin 0.5 (0.0-1.0) mg/dL Direct Bilirubin 0.3 (0.0-0.5) mg/dL AST 19 (5-31) U/L ALT 21 (0-31) U/L Alkaline Phosphatase 83 (39-117) U/L Total Protein 7.3 (6.5-8.0) g/dL Albumin 3.7 (3.5-5.0) g/dL Lipase 18 (8-78) U/L Beta-Hydroxybutyrate 0.50 H (0.02-0.27) mmol/L Urine Color Urine Appearance Urine pH (5.0-9.0) Ur Specific [place] (1.005-1.025) Urine Protein (Neg-Trace) mg/dL Urine Glucose (UA) (Negative) mg/dL Urine Ketones (Negative) mg/dL Urine Blood (Negative) Urine Nitrite (Negative) Ur Leukocyte Esterase (Negative) Urine RBC (0-2) /HPF Urine WBC (0-5) /HPF Ur Squamous Epith Cells (0-2) /HPF Urine Bacteria (None Seen) Hyaline Casts (0-2) /LPF Independent Interpretation I performed an independent interpretation of an: Ultrasound and CT Scan Radiology Impression Discussion of test interpretation with radiology: I have reviewed the radiologist's reading. Radiologist Impression: FINDINGS: LUNG BASES: The lung bases are clear. The heart size is normal. There is mild coronary artery calcifications. No pericardial effusion seen. LIVER, GALLBLADDER, AND BILIARY TREE: The liver is normal in size, shape, and attenuation. No focal hepatic lesion or biliary ductal dilatation is present. The gallbladder is unremarkable with no evidence of radiopaque gallstones, gallbladder wall thickening, or obvious pericholecystic inflammatory changes. PANCREAS: Unremarkable. SPLEEN: Unremarkable. ADRENAL GLANDS: Both adrenal glands are slightly prominent but no focal nodules seen. KIDNEYS AND URETERS: The kidneys are normal in size, shape, and attenuation. There is a tumor radiopaque stone lower pole right kidney without caliectasis or hydronephrosis. The ureters are normal caliber. BLADDER: The bladder is mildly distended but unremarkable. No wall thickening seen. GASTROINTESTINAL TRACT: The small and large bowel are unremarkable. The appendix is unremarkable. ABDOMINAL WALL: No significant hernia is appreciated. LYMPH NODES: Normal. VASCULAR: Unremarkable. PELVIC VISCERA: The uterus is surgically absent or atrophied. No adnexal mass or free fluid seen. There are 1.6 cm lymph nodes in the left groin no abnormal lymph nodes seen in the right groin. OSSEOUS STRUCTURES: No aggressive lytic or sclerotic process seen. There is mild degenerative bilateral facet joint disease L5/S1 disc level CT/CT abdomen pelvis wo IV con IMPRESSION: 1. No acute intra-abdominal process seen. 2. Nonobstructive new radiopaque stone lower pole right kidney. Fleischner guidelines were followed. FINDINGS: Technologist reports examination very limited by patient discomfort. Not able to compress mid thigh on the right and not able to compress the entire left leg. RIGHT: Study limited by inability to compress the extremity. The visualized common femoral vein, superficial femoral vein, profunda femoral vein, popliteal vein, and the trifurcation region demonstrates vascular flow, without evidence of obvious deep venous thrombosis. There is vascular flow seen in the visualized calf veins. There is no significant popliteal fossa cyst. . LEFT: Very limited study, patient unable to tolerate compression. There is vascular flow in the visualized common femoral vein, superficial femoral vein, profunda femoral vein, popliteal vein, and the trifurcation region without evidence of obvious deep venous thrombosis. There is vascular flow seen in the visualized calf veins. There is no significant popliteal fossa cyst. . If the patient's symptoms persist, followup ultrasound in 5 days 7 days might be of value to exclude proximal propagation from a non-visualized calf vein. US/US venous duplex LE BI IMPRESSION: Study very limited by patient discomfort. Patient unable to tolerate compression. No obvious deep vein thrombosis identified in bilateral lower extremities. If the patient's symptoms persist, short-term followup ultrasound such as in 3-5 days might be of value to exclude nonvisualized thrombosis. Critical Care Time Critical Care Time Critical Care Time: Yes Total Critical Care Time: 60 Attestation: I have personally provided critical care time. Time includes review of lab data, radiology results, discussion with consultants, and monitoring for potential decompensation. Intervention performed as documented. Discharge Plan Discharge Clinical Impression: Abdominal pain, Acute UTI, Bilateral leg pain, Acute hyperglycemia Patient Disposition: Home, Self-Care Instructions: Leg Pain (ED), Urinary Tract Infection in Older Adults (ED) Additional Instructions: Please follow-up with your primary care physician tomorrow. If you have any worsening or new symptoms, please return to the emergency room or call 911 Prescriptions: New cefuroxime axetil 250 mg tablet 250 mg PO BID Qty: 14 0RF No Action simethicone [Gas Relief (simethicone)] 80 mg Tablet,Chewable 80 mg PO TID PRN (Reason: gas) 30 Days Qty: 30 0RF clonazepam 0.5 mg tablet 0.5 mg PO DAILY PRN (Reason: Anxiety) 30 Days Qty: 30 0RF (DME) FreeStyle Lite Strips Strip See Rx Instructions .ROUTE .MEDSUPPLY Qty: 150 11RF Rx Instructions: 4 times a day aspirin 81 mg tablet,delayed release (DR/EC) 81 mg PO DAILY 30 Days Qty: 30 0RF ascorbic acid (vitamin C) [Vitamin C] 500 mg Tablet 500 mg PO DAILY 30 Days Qty: 30 0RF metformin 500 mg tablet extended release 24 hr 500 mg PO BID Qty: 60 0RF topiramate 50 mg tablet 50 mg PO BID 30 Days Qty: 60 0RF cholecalciferol (vitamin D3) 50 mcg (2,000 unit) capsule 50 mcg PO DAILY 30 Days Qty: 30 0RF (DME) pen needle, diabetic 32 gauge x 5/32 needle See Rx Instructions subcut .MEDSUPPLY Qty: 50 0RF Rx Instructions: As directed (DME) lancets [TRUEplus Lancets] 33 gauge misc See Rx Instructions .ROUTE .MEDSUPPLY Qty: 100 0RF Rx Instructions: As directed test blood sugar 4 times a day cetirizine 10 mg tablet 10 mg PO DAILY meloxicam 15 mg tablet 15 mg PO DAILY insulin aspart U-100 [Novolog FlexPen U-100 Insulin] 100 unit/mL (3 mL) insulin pen 1 sliding scale dose subcut TIDAC insulin glargine [Lantus Solostar U-100 Insulin] 100 unit/mL (3 mL) insulin pen 30 unit subcut BEDTIME Ozempic 1 mg/dose (4 mg/3 mL) pen injector 1 mg subcut WE@0900 Rx Instructions: on wednesdays citalopram 20 mg tablet 20 mg PO DAILY Dry Eye Relief 1-0.2-0.2 % drops 1 drp ophthalmic (eye) QID PRN (Reason: Dry Eyes) albuterol sulfate 90 mcg/actuation Hfa Aerosol Inhaler 2 puff INHALATION Q4H PRN (Reason: Shortness Of Breath Or Wheezing) gabapentin 300 mg capsule 300 mg PO TID nitrofurantoin monohyd/m-cryst [Macrobid] 100 mg capsule 100 mg PO Q12H 7 Days Qty: 14 0RF Rx Instructions: must administer with a meal/food cyclobenzaprine 5 mg tablet 5 mg PO TID PRN (Reason: muscle spasms) 30 Days Qty: 90 3RF acetaminophen 650 mg tablet extended release 650 mg PO Q6H PRN (Reason: pain) mirtazapine 15 mg tablet 15 mg PO BEDTIME Referrals: João Schneider MD [Physician] - (Claudication)
[2023-09-27 17:09] LABS: Appearance Urine Turbid; Color Urine Yellow; Glucose Urine UA >=1000 mg/dL (Negative); Leukocyte Esterase Urine Negative (Negative); Nitrite Urine Positive (Negative); PH 8.5 (5.0-9.0); UMIC TRIGGER UACC YES; Urine Blood Negative (Negative); Urine Ketones 15 mg/dL (Negative); Urine Protein Negative (Neg-Trace)
[2023-09-27 17:11] LABS: Bacteria Urine 4+ (None Seen); Hyaline Casts Urine 0-2 /LPF (0-2); RBC Urine 0-2 /HPF (0-2); Squamous Epithelial Cell Urine 0-2 /HPF (0-2); UACC Culture Trigger YES; WBC Urine 0-5 /HPF (0-5)
[2023-09-27 17:28] LABS: Alanine Aminotransferase 21 U/L (0-31); Albumin Level 3.7 g/dL (3.5-5.0); Alkaline Phosphatase 83 U/L (39-117); Anion Gap 11 (12-20); Aspartate Amino Transferase 19 U/L (5-31); Bilirubin Direct 0.3 mg/dL (0.0-0.5); Bilirubin Total 0.5 mg/dL (0.0-1.0); Blood Urea Nitrogen 14 mg/dL (9-16); Calcium 9.2 mg/dL (8.4-10.2); Carbon Dioxide 23 mmol/L (22-29); Chloride 108 mmol/L (96-108); Creatinine Clr Calc Pharmacy 52.7; Estimated Glomerular Filt Rate 51; Glucose Random 392 mg/dL (60-115); Lipase 18 U/L (8-78); Magnesium 1.8 mg/dL (1.6-2.6); Potassium 4.8 mmol/L (3.3-5.1); Sodium 137 mmol/L (135-145); Total Protein 7.3 g/dL (6.5-8.0)
[2023-09-27] MEDS: 0.9 % Sodium Chloride 1,000 ML 999 ML IVCONT (17:33)
[2023-09-27] MEDS: Insulin Regular, Human 100 UNIT/ML 3 ML VIAL 10 UNIT IVPUSH (17:40)
[2023-09-27 17:55] VITALS: BP 139/63; PULSE 85; RESP 11; TEMP 36.7; O2SAT 97
--- NOTE | 2023-09-27 18:06 | PC.NURSE ---
FLUIDS STARTED, IV INSULIN GIVEN DOCUMENTED. APPLE SAUCE GIVEN. BEDSIDE ULTRA SOUND BEING DONE AT THIS TIME.
--- NOTE | 2023-09-27 18:56 | PC.NURSE ---
this rn assumed care of pt. pt resting in stretcher reporting headache, provider aware. no acute distress noted, plan of care continues, vss.
[2023-09-27 18:57] VITALS: BP 134/66; PULSE 77; RESP 17; TEMP 36.5; O2SAT 100
[2023-09-27] MEDS: Acetaminophen 325 MG TABLET 975 MG PO (19:19)
--- NOTE | 2023-09-27 19:22 | PC.NURSE ---
pt medicated per mar, pt tolerated well with water. poc 228.
[2023-09-27 19:26] LABS: Glucose, Whole Blood 228 mg/dL (60-115)
[2023-09-27] MEDS: cefuroxime axetiL 250 MG TABLET PO (20:41)
--- NOTE | 2023-09-27 21:05 | PC.NURSE ---
pt assisted in changing into clothes, awaiting ems arrival for transport home.
[2023-09-27 21:15] VITALS: BP 157/82; PULSE 83; RESP 17; TEMP 36.7; O2SAT 98
== END 2023-09-27 21:16 | disposition home or self-care (01) ==
PROVIDERS: Emergency Medicine; Physician Assistant Medical; Emergency Provider Emergency Medicine; PCP Internal Medicine
DX: R10.9 Unspecified abdominal pain (principal); N39.0 Urinary tract infection, site not specified; M79.604 Pain in right leg; M79.605 Pain in left leg; E11.65 Type 2 diabetes mellitus with hyperglycemia; I10 Essential (primary) hypertension; Z79.4 Long term (current) use of insulin
CPT/HCPCS: 36415; 74176; 80053; 81001; 82010; 82248; 82947; 83690; 83735; 85025; 87086; 87088; 87186; 93005; 93970; 96361; 96374; 99285

== ENCOUNTER → 2023-09-27 15:13 | Outpatient (BNV) | payer OTHER, SELFPAY | PROVIDERS: Emergency Provider Emergency Medicine; PCP Internal Medicine; Visit Provider Internal Medicine Cardiovascular Disease | DX: R07.9 Chest pain, unspecified (principal) | CPT/HCPCS: 93010 ==

== ENCOUNTER 2023-11-06 10:41 | Emergency (ER) | payer OTHER, SELFPAY ==
[2023-11-06] VITALS (8 sets, daily range): BP systolic 118–153; BP diastolic 70–84; PULSE 78–96; RESP 14–18; TEMP 36.2–36.6; O2SAT 97–100; BMI 34.8
--- NOTE | ~2023-11-06 | XR_ITS ---
EXAMINATION: XR CHEST CLINICAL INFORMATION: Fall. COMPARISON: Chest radiograph 12/09/2022. TECHNIQUE: Frontal view of the chest was obtained. FINDINGS: Stable prominence of the cardiomediastinal silhouette. No focal airspace opacities, pleural effusion or pneumothorax. No displaced rib fractures. No acute osseous findings. Visualized upper abdomen is within normal limits. XR/XR chest 1V IMPRESSION: 1. No acute cardiopulmonary findings. 2. No acute osseous findings. If a rib fracture is highly clinically suspected, consider correlation with dedicated radiographic views of the rib cage.
--- NOTE | ~2023-11-06 | CT_ITS ---
EXAMINATION: CT HEAD WITHOUT CONTRAST CT CERVICAL SPINE WITHOUT CONTRAST CLINICAL INFORMATION: Trauma. COMPARISON: CT head 05/15/2023. CT cervical spine 10/23/2022. TECHNIQUE: Contiguous axial imaging was performed from the skull base to vertex without intravenous administration of contrast. Contiguous axial imaging was performed from the upper chest through the skull base without intravenous administration of contrast. Coronal and sagittal reformats were obtained at the acquisition workstation. This CT examination was performed using dose optimization techniques as appropriate, variously including the following: *Automated exposure control *Adjustment of mA and/or kV according to patient size (this includes techniques or standardized protocols for targeted exams where dose is matched to indication/reason for exam; i.e. extremities or head) *Use of iterative reconstruction technique DLP: 763 and 410 mGy-cm FINDINGS: Head: There is no evidence of acute intracranial hemorrhage or edematous territorial infarction. A few foci of hypoattenuation in the periventricular and deep white matter are consistent with mild microangiopathy. Browning-white matter differentiation is preserved. Proportional prominence of the ventricles and sulcal spaces. No evidence for obstructive hydrocephalus. No abnormal mass effect or midline shift. No extra-axial fluid collections. No acute soft tissue or osseous abnormalities. The mastoid air cells and paranasal sinuses are clear. Cervical Spine: The atlantooccipital and atlantoaxial articulations remain well aligned. Straightening of the normal cervical lordosis. Otherwise, there is anatomic alignment of the vertebral bodies and posterior elements. No evidence of acute fracture or subluxation. Moderate multilevel cervical spondylosis with intervertebral disc height loss, osteophyte and facet/uncal hypertrophy leading to various degrees of neural foraminal encroachment. There is no prevertebral soft tissue swelling. The thyroid gland and remaining cervical soft tissues are normal in appearance. Stable 4 mm right upper lobe nodule (12:300) compared to 10/23/2022, for which no additional imaging follow-up is recommended following Fleischner guidelines. CT/CT cervical spine wo IV con IMPRESSION: 1. No acute intracranial pathology. 2. No acute cervical fractures or malalignment. 3. Moderate cervical spondylosis.
--- NOTE | 2023-11-06 11:03 | ECG_ITS ---
Test Reason : fall Blood Pressure : / mmHG Vent. Rate : 085 BPM Atrial Rate : 085 BPM P-R Int : 134 ms QRS Dur : 076 ms QT Int : 340 ms P-R-T Axes : 067 003 -02 degrees QTc Int : 404 ms Normal sinus rhythm Nonspecific T wave abnormality Abnormal ECG When compared with ECG of 27-SEP-2023 15:18, No significant change was found Referred By: Luz Elena Joshi Electronically Signed By:ALBA POLLACK
--- NOTE | 2023-11-06 11:06 | ED_ITS ---
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 Went to get back up again felt the same hit head on door now has headache and neck pain. Unsure downtime no LOC - was yelling and mailman heard her. She now has headache and dizziness initially confused and anxious but then improved and is alert and oriented x 3. She notes her LEARNING ENGINEER does not come until 2pm. Her falls have not improved over 2 months. MD complaint: fall Onset (ago): unknown Fall from: standing Fall witnessed: no Place fall occurred: home Loss of consciousness: none Prolonged down time: unclear Symptoms prior to fall: dizziness Context: history of frequent falls Location of injury: head and neck Severity: moderate Quality: aching Associated symptoms (after fall): headache and other (neck pain, feels dizzy) Related Data Home Medications ?Medication ?Instructions ?Recorded ?Confirmed cetirizine 10 mg tablet 10 mg PO DAILY 12/09/22 02/13/23 insulin aspart U-100 100 unit/mL 1 sliding scale dose subcut TIDAC 12/09/22 02/13/23 (3 mL) subcutaneous pen (Novolog FlexPen U-100 Insulin aspart) insulin glargine 100 unit/mL (3 30 unit subcut BEDTIME 12/09/22 02/13/23 mL) subcutaneous pen (Lantus Solostar U-100 Insulin) meloxicam 15 mg tablet 15 mg PO DAILY 12/09/22 02/13/23 semaglutide 1 mg/dose (4 mg/3 mL) 1 mg subcut WE@0900 12/09/22 02/13/23 subcutaneous pen injector (Ozempic) acetaminophen 650 mg 650 mg PO Q6H PRN pain 12/16/22 02/13/23 tablet,extended release mirtazapine 15 mg tablet 15 mg PO BEDTIME 12/16/22 02/13/23 albuterol sulfate 90 mcg/actuation 2 puff inhalation Q4H PRN 02/13/23 02/13/23 aerosol inhaler Shortness Of Breath Or Wheezing citalopram 20 mg tablet 20 mg PO DAILY 02/13/23 02/13/23 gabapentin 300 mg capsule 300 mg PO TID 02/13/23 02/13/23 peg [id number] 1 1 drp ophthalmic (eye) QID PRN Dry 02/13/23 02/13/23 %-0.2 %-0.2 % eye drops (Dry Eye Eyes Relief) Previous Rx's ?Medication ?Instructions ?Recorded ascorbic acid (vitamin C) 500 mg 500 mg PO DAILY 30 days #30 tabs 11/19/22 tablet (Vitamin C) aspirin 81 mg tablet,delayed 81 mg PO DAILY 30 days #30 tabs 11/19/22 release blood sugar diagnostic (FreeStyle #150 ea 11/19/22 Lite Strips) cholecalciferol (vitamin D3) 50 50 mcg PO DAILY 30 days #30 caps 11/19/22 mcg (2,000 unit) capsule clonazepam 0.5 mg tablet 0.5 mg PO DAILY PRN Anxiety 30 11/19/22 days #30 tabs lancets 33 gauge (TRUEplus Lancets) #100 ea 11/19/22 metformin 500 mg tablet,extended 500 mg PO BID #60 tabs 11/19/22 release 24 hr pen needle, diabetic 32 gauge x #50 ea 11/19/22 5/32 simethicone 80 mg chewable tablet 80 mg PO TID PRN gas 30 days #30 11/19/22 (Gas Relief (simethicone)) tabs topiramate 50 mg tablet 50 mg PO BID 30 days #60 tabs 11/19/22 cyclobenzaprine 5 mg tablet 5 mg PO TID PRN muscle spasms 30 12/16/22 days #90 tabs nitrofurantoin 100 mg PO Q12H 7 days #14 caps 02/17/23 monohydrate/macrocrystals 100 mg capsule (Macrobid) cefuroxime axetil 250 mg tablet 250 mg PO BID #14 tabs 09/27/23 Allergies Allergy/AdvReac Type Severity Reaction Status Date / Time COVID-19 vacc, bv (Orig, Allergy Severe Swelling Verified 11/06/23 10:59 Omicron BA.4/5) (Pfizer) [From Pfizer COVID Bival(12y up)(PF)] homosalate [From Coppertone] Allergy Intermediate RASH, itchy Verified 11/06/23 10:59 octinoxate [From Coppertone] Allergy Intermediate RASH, itchy Verified 11/06/23 10:59 oxybenzone [From Coppertone] Allergy Intermediate RASH, itchy Verified 11/06/23 10:59 pioglitazone Allergy Unknown Unknown Verified 11/06/23 10:59 pollen extracts Allergy Unknown Unknown Verified 11/06/23 10:59 diovan Allergy Unknown rash Uncoded 05/15/23 03:09 Review of Systems 2 Review of Systems: Constitutional : No Fever, No Chills, No Fatigue ENT/Mouth : No sore throat, No Rhinorrhea Eyes: No Eye Pain, No Swelling, No Redness Cardiovascular : No Chest Pain, No SOB, No Dyspnea on Exertion Respiratory : No Cough, No Sputum Gastrointestinal : No Nausea, No Vomiting, No Diarrhea, No abdominal Pain Genitourinary : No Dysuria, No Urinary Frequency, No Hematuria, Musculoskeletal : No joint pain, No Myalgias, No Joint Swelling Skin : No Skin Lesions, No rash Neuro : pos Weakness, No Numbness, pos Dizziness, positive Headache Psych : No Anxiety/Panic, No Depression Heme/Lymph: No Bruising, No Bleeding,No Lymphadenopathy All other systems reviewed and are negative PMFSH Past Medical History Attestation statement: The following information was validated with the patient. Source: old records reviewed Medical History Polanco's palsy Elevated hemoglobin A1c Left arm weakness Numbness and tingling in left arm Left shoulder pain Thoracic outlet syndrome Neck pain Left-sided weakness Colon cancer screening Microscopic hematuria Lung cancer Vitamin D deficiency Depression Fibromyalgia Obesity (BMI 30-39.9) Diabetic polyneuropathy associated with type 2 diabetes mellitus Hypertension skilled nursing (current) use of insulin Dyslipidemia Diabetes type 2, uncontrolled Surgical History H/O: hysterectomy Family History Family History Father Osteoporosis Mother Stroke Cancer Social History Social History Household Members: None Housing: Apartment Do you presently have visiting nurse or other home services: Yes (pt reports having a LEARNING ENGINEER) Unable to assess alcohol history related to: Unable to respond Alcohol intake: former Patient Tobacco Use Status: Never used Tobacco Smoked in Last 30 Days: No Use of substances other than those prescribed or required for medical reasons: No Substance Use Type: Marijuana Advance Directives: No Advance Directives Information Provided: Yes service: No Sexual orientation: Straight/Heterosexual Physical Exam 2 Vital Signs: Vital Signs: Last Vital Signs Temp 97.7 F 11/06/23 13:11 Pulse 90 11/06/23 14:11 Resp 18 11/06/23 13:11 BP 142/79 H 11/06/23 14:11 Pulse Ox 99 11/06/23 13:11 O2 Del Method Room Air 11/06/23 13:11 BMI result Body Mass Index 34.8 Appearance: Alert. Oriented X3 - initially confused on arrival and anxious then cleared . No acute distress. Eyes: Pupils equal, round and reactive to light. ENT: Pharynx normal. Neck: Normal inspection. Neck supple. CVS: Normal heart rate and rhythm. Pulses normal. Respiratory: No respiratory distress. Breath sounds normal. Abdomen: Soft and nontender. Skin: Skin warm and dry. Normal skin color. Normal skin turgor. Extremities: No lower extremity edema. No calf ttp Neuro: Oriented X 3. No motor deficit. No sensory deficit. Course Course Course Narrative: still confused + UTI at this time infection suspected I have ordered cultures and lactic acid 238pm Reevaluation(s) Reevaluation #1: ortho negative Reevaluation #2: patient is feeling better but she is a fall risk Medications Administered Discontinued Medications Generic Name Dose Route Start Last Admin Trade Name Freq PRN Reason Stop Dose Admin Acetaminophen 975 mg 11/06/23 11:02 11/06/23 13:27 Acetaminophen 325 Mg Tablet PO 11/06/23 11:03 975 mg ONCE ONE Administration Oxycodone HCl 5 mg 11/06/23 11:02 11/06/23 13:27 Oxycodone Hcl Immed Release 5 Mg Tablet PO 11/06/23 11:03 5 mg ONCE ONE Administration Medical Decision Making Medical Decision Making MDM Narrative: 73 yo female with 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 She is a poor historian. She is not on blood thinners. I am not going to order TNK or proceed with posterior stroke work up at this time other than dizziness which is worse with standing there are no new focal deficits and she cannot provide any onset. She also hit her head. I have ordered CT head/neck, labs, CXR, EKG, PO pain control. Differential Diagnosis Differential Diagnoses: The differential diagnosis associated with the presentation includes weakness, falls, head injury, given we cannot get a timeline and the head injury if she had a posterior stroke she is not a candidate for TNK as I cannot get a last known well time Admission/Observation Consideration of admission/observation: Escalation of care including admission/observation considered the patient is a fall risk - she is alert and oriented now no new focal deficits notes about 2 months of issues walking and worsening weakness/tremors LEARNING ENGINEER only comes to help at 2pm will keep for PT/CM physician observation started at 320pm Consult Healthcare Provider Management of the patient was discussed with: Transportation Sales Consultant Lab Data [facility] Lab Attestation statement: I reviewed the patient's lab results. 11/06/23 13:08 11/06/23 13:08 Labs: Lab Results 11/06/23 11/06/23 11/06/23 Range/Units 11:53 13:08 13:17 WBC 7.6 (4.8-10.8) X10*3/uL RBC 4.38 (4.20-5.50) X10*6/uL Hgb 14.0 (12.0-16.0) g/dl Hct 40.9 (37.0-47.0) % MCV 93.4 (80.0-98.0) fL MCH 32.0 (27.0-33.0) pg MCHC 34.2 (31.0-35.0) g/dl RDW 12.4 (11.0-16.0) % Plt Count 230 (160-400) X10*3/uL MPV 11.8 (9.4-12.3) fL Immature Gran % (Auto) 0.3 (0.0-0.4) % Neut % (Auto) 56.1 (45-73) % Lymph % (Auto) 37.1 (20-40) % [place] % (Auto) 5.5 (2-11) % Eos % (Auto) 0.7 (0-4) % Baso % (Auto) 0.3 (0-2) % Lymph # (Auto) 2.8 (1.2-4.9) X10*3/uL [place] # (Auto) 0.4 (0.1-1.2) X10*3/uL Eos # (Auto) 0.1 (0.0-0.4) X10*3/uL Baso # (Auto) 0.0 (0.0-0.2) X10*3/uL Abs Immat Gran (auto) 0.02 (0.00-0.03) X10*3/uL Absolute Neuts (auto) 4.3 (2.0-8.3) x10*3/uL Absolute Nucleated RBC 0.000 (0.0-0.012) X10*3/uL Nucleated RBC % (auto) 0.0 (0.0-0.2) /100WBC PT 12.6 (11.1-13.3) SEC INR 1.0 (0.9-1.1) Sodium 137 (135-145) mmol/L Potassium 4.4 (3.3-5.1) mmol/L Chloride 105 (96-108) mmol/L Carbon Dioxide 23 (22-29) mmol/L Anion Gap 13 (12-20) BUN 16 (9-16) mg/dL Creatinine 1.23 (0.5-1.4) mg/dL Estim Creat Clear Calc 44.4 Estimated GFR 43 Random Glucose 349 H (60-115) mg/dL Calcium 10.3 H D (8.4-10.2) mg/dL Magnesium 2.2 (1.6-2.6) mg/dL Total Bilirubin 0.4 (0.0-1.0) mg/dL Direct Bilirubin 0.2 (0.0-0.5) mg/dL AST 22 (5-31) U/L ALT 23 (0-31) U/L Alkaline Phosphatase 86 (39-117) U/L Ammonia < 14 (13-55) umol/L Total Creatine Kinase 189 H (26-140) U/L Troponin I High Sens 4.0 (<3.5-17.0) ng/L B-Natriuretic Peptide 28 (<100) pg/mL Total Protein 8.7 H (6.5-8.0) g/dL Albumin 4.3 (3.5-5.0) g/dL Lipase 29 (8-78) U/L Urine Color Urine Appearance Urine pH (5.0-9.0) Ur Specific [place] (1.005-1.025) Urine Protein (Neg-Trace) mg/dL Urine Glucose (UA) (Negative) mg/dL Urine Ketones (Negative) mg/dL Urine Blood (Negative) Urine Nitrite (Negative) Ur Leukocyte Esterase (Negative) Urine RBC (0-2) /HPF Urine WBC (0-5) /HPF Ur Squamous Epith Cells (0-2) /HPF Urine Bacteria (None Seen) Hyaline Casts (0-2) /LPF Influenza Type A (PCR) NEGATIVE (Negative) Influenza Type B (PCR) NEGATIVE (Negative) RSV RNA Qual (PCR) NEGATIVE (Negative) SARS-CoV-2 RNA (RT-PCR) NEGATIVE (Negative) 11/06/23 Range/Units 14:17 WBC (4.8-10.8) X10*3/uL RBC (4.20-5.50) X10*6/uL Hgb (12.0-16.0) g/dl Hct (37.0-47.0) % MCV (80.0-98.0) fL MCH (27.0-33.0) pg MCHC (31.0-35.0) g/dl RDW (11.0-16.0) % Plt Count (160-400) X10*3/uL MPV (9.4-12.3) fL Immature Gran % (Auto) (0.0-0.4) % Neut % (Auto) (45-73) % Lymph % (Auto) (20-40) % [place] % (Auto) (2-11) % Eos % (Auto) (0-4) % Baso % (Auto) (0-2) % Lymph # (Auto) (1.2-4.9) X10*3/uL [place] # (Auto) (0.1-1.2) X10*3/uL Eos # (Auto) (0.0-0.4) X10*3/uL Baso # (Auto) (0.0-0.2) X10*3/uL Abs Immat Gran (auto) (0.00-0.03) X10*3/uL Absolute Neuts (auto) (2.0-8.3) x10*3/uL Absolute Nucleated RBC (0.0-0.012) X10*3/uL Nucleated RBC % (auto) (0.0-0.2) /100WBC PT (11.1-13.3) SEC INR (0.9-1.1) Sodium (135-145) mmol/L Potassium (3.3-5.1) mmol/L Chloride (96-108) mmol/L Carbon Dioxide (22-29) mmol/L Anion Gap (12-20) BUN (9-16) mg/dL Creatinine (0.5-1.4) mg/dL Estim Creat Clear Calc Estimated GFR Random Glucose (60-115) mg/dL Calcium (8.4-10.2) mg/dL Magnesium (1.6-2.6) mg/dL Total Bilirubin (0.0-1.0) mg/dL Direct Bilirubin (0.0-0.5) mg/dL AST (5-31) U/L ALT (0-31) U/L Alkaline Phosphatase (39-117) U/L Ammonia (13-55) umol/L Total Creatine Kinase (26-140) U/L Troponin I High Sens (<3.5-17.0) ng/L B-Natriuretic Peptide (<100) pg/mL Total Protein (6.5-8.0) g/dL Albumin (3.5-5.0) g/dL Lipase (8-78) U/L Urine Color Yellow Urine Appearance Cloudy Urine pH 6.5 (5.0-9.0) Ur Specific [place] 1.020 (1.005-1.025) Urine Protein Negative (Neg-Trace) mg/dL Urine Glucose (UA) >=1000 H (Negative) mg/dL Urine Ketones Trace (Negative) mg/dL Urine Blood Negative (Negative) Urine Nitrite Positive H (Negative) Ur Leukocyte Esterase Small (1+) H (Negative) Urine RBC 0-2 (0-2) /HPF Urine WBC 11-20 H (0-5) /HPF Ur Squamous Epith Cells 3-5 (0-2) /HPF Urine Bacteria 4+ (None Seen) Hyaline Casts 0-2 (0-2) /LPF Influenza Type A (PCR) (Negative) Influenza Type B (PCR) (Negative) RSV RNA Qual (PCR) (Negative) SARS-CoV-2 RNA (RT-PCR) (Negative) Independent Interpretation I performed an independent interpretation of an: EKG, Plain X-Ray (no fracture) and CT Scan (no trauma) Interpretation: Rate: 85 Rhythm: NSR Erhard: normal Normal P waves. Normal JASPAL. Normal QRS complex. ST T wave : no NATALY, nonspecific ST T wave changes anterior leads qTC: 404 prior studies: no sig ischemia The study has been interpreted contemporaneously by me. . Radiology Impression Discussion of test interpretation with radiology: I have reviewed the radiologist's reading. Independent Historian Clinical information obtained from an independent historian. History obtained from or confirmed by: EMS External Record Review External record reviewed: Inpatient record Discharge Plan Discharge Clinical Impression: Acute UTI, Fall, Dizziness Patient Disposition: Still a Patient Prescriptions: No Action simethicone [Gas Relief (simethicone)] 80 mg Tablet,Chewable 80 mg PO TID PRN (Reason: gas) 30 Days Qty: 30 0RF clonazepam 0.5 mg tablet 0.5 mg PO DAILY PRN (Reason: Anxiety) 30 Days Qty: 30 0RF (DME) FreeStyle Lite Strips Strip See Rx Instructions .ROUTE .MEDSUPPLY Qty: 150 11RF Rx Instructions: 4 times a day aspirin 81 mg tablet,delayed release (DR/EC) 81 mg PO DAILY 30 Days Qty: 30 0RF ascorbic acid (vitamin C) [Vitamin C] 500 mg Tablet 500 mg PO DAILY 30 Days Qty: 30 0RF metformin 500 mg tablet extended release 24 hr 500 mg PO BID Qty: 60 0RF topiramate 50 mg tablet 50 mg PO BID 30 Days Qty: 60 0RF cholecalciferol (vitamin D3) 50 mcg (2,000 unit) capsule 50 mcg PO DAILY 30 Days Qty: 30 0RF (DME) pen needle, diabetic 32 gauge x 5/32 needle See Rx Instructions subcut .MEDSUPPLY Qty: 50 0RF Rx Instructions: As directed (DME) lancets [TRUEplus Lancets] 33 gauge misc See Rx Instructions .ROUTE .MEDSUPPLY Qty: 100 0RF Rx Instructions: As directed test blood sugar 4 times a day cetirizine 10 mg tablet 10 mg PO DAILY meloxicam 15 mg tablet 15 mg PO DAILY insulin aspart U-100 [Novolog FlexPen U-100 Insulin] 100 unit/mL (3 mL) insulin pen 1 sliding scale dose subcut TIDAC insulin glargine [Lantus Solostar U-100 Insulin] 100 unit/mL (3 mL) insulin pen 30 unit subcut BEDTIME Ozempic 1 mg/dose (4 mg/3 mL) pen injector 1 mg subcut WE@0900 Rx Instructions: on wednesdays citalopram 20 mg tablet 20 mg PO DAILY Dry Eye Relief 1-0.2-0.2 % drops 1 drp ophthalmic (eye) QID PRN (Reason: Dry Eyes) albuterol sulfate 90 mcg/actuation Hfa Aerosol Inhaler 2 puff INHALATION Q4H PRN (Reason: Shortness Of Breath Or Wheezing) gabapentin 300 mg capsule 300 mg PO TID nitrofurantoin monohyd/m-cryst [Macrobid] 100 mg capsule 100 mg PO Q12H 7 Days Qty: 14 0RF Rx Instructions: must administer with a meal/food cefuroxime axetil 250 mg tablet 250 mg PO BID Qty: 14 0RF cyclobenzaprine 5 mg tablet 5 mg PO TID PRN (Reason: muscle spasms) 30 Days Qty: 90 3RF acetaminophen 650 mg tablet extended release 650 mg PO Q6H PRN (Reason: pain) mirtazapine 15 mg tablet 15 mg PO BEDTIME Print Language: Cypriot
[2023-11-06 13:01] LABS: Influenza A PCR NEGATIVE (Negative); Influenza B PCR NEGATIVE (Negative); Resp Syncy Virus RNA Qual PCR NEGATIVE (Negative); SARS COV2 PCR INHOUSE NEGATIVE (Negative)
[2023-11-06 13:12] LABS: MANUAL DIFF FLAG NO
[2023-11-06 13:14] LABS: Basophils Percent Auto 0.3 % (0-2); Eosinophils Absolute Auto 0.1 X10*3/uL (0.0-0.4); Eosinophils Percent Auto 0.7 % (0-4); Hematocrit 40.9 % (37.0-47.0); Imm Gran Abs Auto 0.02 X10*3/uL (0.00-0.03); Imm Gran Pct Auto 0.3 % (0.0-0.4); Lymphocytes Absolute Auto 2.8 X10*3/uL (1.2-4.9); Lymphocytes Percent Auto 37.1 % (20-40); Mean Corpuscular HGB Conc 34.2 g/dl (31.0-35.0); Mean Corpuscular Volume 93.4 fL (80.0-98.0); Mean Platelet Volume 11.8 fL (9.4-12.3); Monocytes Absolute Auto 0.4 X10*3/uL (0.1-1.2); Monocytes Percent Auto 5.5 % (2-11); Neutrophils Absolute Auto 4.3 x10*3/uL (2.0-8.3); Neutrophils Percent Auto 56.1 % (45-73); Platelet Count 230 X10*3/uL (160-400); Red Blood Count 4.38 X10*6/uL (4.20-5.50); Red Cell Distribution Width 12.4 % (11.0-16.0); White Blood Count 7.6 X10*3/uL (4.8-10.8)
[2023-11-06 13:19] LABS: Prothrombin Time 12.6 SEC (11.1-13.3)
[2023-11-06] MEDS: oxyCODONE HCl Immed Release 5 MG TABLET PO (13:27)
[2023-11-06] MEDS: Acetaminophen 325 MG TABLET 975 MG PO (13:27)
[2023-11-06 13:32] LABS: Ammonia < 14 umol/L (13-55)
[2023-11-06 13:34] LABS: Alanine Aminotransferase 23 U/L (0-31); Albumin Level 4.3 g/dL (3.5-5.0); Alkaline Phosphatase 86 U/L (39-117); Anion Gap 13 (12-20); Aspartate Amino Transferase 22 U/L (5-31); Bilirubin Direct 0.2 mg/dL (0.0-0.5); Bilirubin Total 0.4 mg/dL (0.0-1.0); Blood Urea Nitrogen 16 mg/dL (9-16); Calcium 10.3 mg/dL (8.4-10.2); Carbon Dioxide 23 mmol/L (22-29); Chloride 105 mmol/L (96-108); Creatinine Clr Calc Pharmacy 44.4; Estimated Glomerular Filt Rate 43; Glucose Random 349 mg/dL (60-115); Lipase 29 U/L (8-78); Magnesium 2.2 mg/dL (1.6-2.6); Potassium 4.4 mmol/L (3.3-5.1); Sodium 137 mmol/L (135-145); Total Protein 8.7 g/dL (6.5-8.0)
[2023-11-06 13:37] LABS: B Type Natriuretic Peptide 28 pg/mL (<100)
[2023-11-06 14:29] LABS: Appearance Urine Cloudy; Color Urine Yellow; Glucose Urine UA >=1000 mg/dL (Negative); Leukocyte Esterase Urine Small (1+) (Negative); Nitrite Urine Positive (Negative); PH 6.5 (5.0-9.0); UMIC TRIGGER UACC YES; Urine Blood Negative (Negative); Urine Ketones Trace mg/dL (Negative); Urine Protein Negative (Neg-Trace)
[2023-11-06 14:31] LABS: Bacteria Urine 4+ (None Seen); Hyaline Casts Urine 0-2 /LPF (0-2); RBC Urine 0-2 /HPF (0-2); UACC Culture Trigger YES
--- NOTE | 2023-11-06 14:52 | PC.NURSE ---
upon arrivial pt reported lft arm pain left leg pain and left sided weakness. pt did not have equal strength in left extremity. pt alert and oriented to self and situation but unclear of date.
[2023-11-06] MEDS: cefTRIAXone sodium 1 GM in 0.9 % Sodium Chloride 50 ML IV (15:24)
--- NOTE | 2023-11-06 15:36 | PC.NURSE ---
with spanish interpreter/translator pt was able to describe where she is, date, and year. she says she lives alone and is able tp take care of herself usually just fine. Now, she is very weak on her left side, she is unable to squeeze her left hand well and says her left leg is weak. Pt is able to life hips in bed and reposition. being treated for UTI. PT/CM consult ordered with agnes orta.
[2023-11-06 15:49] LABS: Troponin-I High Sensitivity < 2.7 ng/L (<3.5-17.0)
--- NOTE | 2023-11-06 17:10 | PC.NURSE ---
pt up to bedside commode with assist
[2023-11-06 17:53] LABS: Glucose, Whole Blood 270 mg/dL (60-115)
--- NOTE | 2023-11-06 18:24 | MHC.CM.ED ---
Addendum entered by Laura Acevedo 11/06/23 21:53: Primary RN updated on plan of care. PT evaluation pending for am. Referrals placed. Original Note: CM consult received from Dr. Joshi. Pt fell today and could not get up. Yelled for help. Aysha responded. Met with patient with Medical area coordinator, as patient is Cymraes speaking. Pt lives alone. States her family lives in [place]. Uses a walker and a cane. Has a BOILER INSPECTOR M-F, 3 hours each day. Address, telephone number and PCP verified. No HCP on file. HCP reviewed with patient. Pt declines to complete. States she has trouble with her daughter, Preeti and does not have anyone to be her HCP. Pt is agreeable to having PT evaluation in the morning, but does not want to go to STR. CM explained that if she can walk and PT recommends home care, then CM can arrange that, but if patient cannot walk, then she cannot safely go home. Pt is aware that CM will speak with her again in the morning after her PT assessment, but if she cannot walk, then she cannot go home. Reminded patient that she fell today and could not get up. Reminded her that the mailman heard her yelling and called 911. Local referrals made for STR with facilities that are contracted with [facility]. CM will follow for discharge planning.
--- NOTE | 2023-11-06 21:16 | PHA.MEDREC ---
Pharmacy Consult ? Medication Reconciliation Pharmacy has completed the medication reconciliation. Patient use [facility] from [facility] pharmacy. Patient did confirm using Lantus 30 units if high blood sugars, sometimes gives less. Monique Mccoy, DawnaD
[2023-11-06 22:15] LABS: Glucose, Whole Blood 280 mg/dL (60-115)
[2023-11-06] MEDS: Atorvastatin Calcium 20 MG TABLET PO (22:18)
[2023-11-06] MEDS: clonazePAM 0.5 MG TABLET PO (22:18)
[2023-11-06] MEDS: Topiramate 25 MG TABLET 50 MG PO (22:18)
[2023-11-06] MEDS: Gabapentin 300 MG CAPSULE PO (22:18)
[2023-11-06] MEDS: Acetaminophen 325 MG TABLET 650 MG PO (22:19)
[2023-11-06] MEDS: Mirtazapine 15 MG TABLET PO (22:19)
[2023-11-06] MEDS: metFORMIN HCl ER 500 MG TAB.ER.24H PO (22:19)
[2023-11-06] MEDS: Insulin Glargine,Hum.rec.anlog 100 UNIT/ML 10 ML VIAL 30 UNIT SUBCUT (22:28)
--- NOTE | 2023-11-06 22:33 | PC.NURSE ---
Patient alert and oriented x 3. Patient could not get up to commode tonight. Patient was upset and crying she wanted to go home felt that the video game technician thought she was being fresh with him. Patient c/o 5/10 right side neck pain medicated with tylenol. Patient got all her night time medications was worried that her blood sugar was too low for her insulin. Gave her a turkey sandwch with verma and milk. Patient to have physical therapy assessment tomorrow. [id number] tonight. Patient takes pills with warm water no ice. Will continue with plan of care.
--- NOTE | 2023-11-06 23:16 | PC.NURSE ---
Patient keeps crying that she has the urge to void bladder scanned for 136cc's Bere MARROQUIN notified.
[2023-11-07 05:52] VITALS: BP 128/71; PULSE 74; RESP 18; TEMP 36.5; O2SAT 96
--- NOTE | 2023-11-07 06:41 | PC.NURSE ---
Sausage Stuffer assumed care of patient at 23:30. Pt seen in ED overflow s/p fall. A&Ox4. Denies pain. Breathing is even and unlabored without distress. Pt offers no acute complaints. Purewick in place as pt is unsteady/unsafe to use bedside commode, reports weakness in her legs, pending PT/CM eval. +pp/cms. Pt sleeping in bed majority of shift. Purposeful hourly rounding, bed alarm on and safety measures in place.
[2023-11-07] MEDS: Insulin Lispro 100 UNIT/ML 3 ML VIAL SUBCUT ×4 (08:27→20:59)
[2023-11-07] MEDS: Aspirin Enteric Coated 81 MG TABLET.DR PO (08:27)
[2023-11-07] MEDS: Ascorbic Acid 500 MG TABLET PO (08:27)
[2023-11-07] MEDS: cefuroxime axetiL 250 MG TABLET PO ×2 (08:28→20:58)
[2023-11-07] MEDS: Cholecalciferol (Vitamin D3) 25 MCG TABLET 50 MCG PO (08:28)
[2023-11-07] MEDS: Loratadine 10 MG TABLET PO (08:28)
[2023-11-07] MEDS: metFORMIN HCl ER 500 MG TAB.ER.24H PO ×2 (08:31→20:58)
[2023-11-07] MEDS: Gabapentin 300 MG CAPSULE PO ×3 (08:31→20:58)
[2023-11-07] MEDS: Topiramate 25 MG TABLET 50 MG PO ×2 (08:31→20:58)
[2023-11-07 09:04] LABS: Glucose, Whole Blood 241 mg/dL (60-115)
[2023-11-07] MEDS: Escitalopram Oxalate 10 MG TABLET PO (09:37)
[2023-11-07] MEDS: Acetaminophen 325 MG TABLET 650 MG PO (09:40)
--- NOTE | 2023-11-07 09:50 | MHC.CM.PN ---
EMR REVIEWED, P.T. EVAL STILL PENDING, DISPO PENDING P.T. EVAL, CM WILL CONT TO FOLLOW FOR P.T. RECOMMENDATIONS.
--- NOTE | 2023-11-07 11:44 | MHC.CM.PN ---
CM MET W/PT VIA COMMERCIAL ESTIMATOR, PT AGREEABLE TO [facility] FOR STR AND CM WILL ATTEMPT TO COMPLETE A HCP W/PT HOWEVER WILL NEED TO USE BATCH ROLLER OPERATOR TO CONTACT HIGH AUDRA MORLEY UPDATED VIA [employer] AND WILL NEED INSURANCE AUTH.
[2023-11-07 12:06] LABS: Glucose, Whole Blood 234 mg/dL (60-115)
[2023-11-07] MEDS: Cyclobenzaprine HCl 10 MG TABLET PO (13:23)
--- NOTE | 2023-11-07 15:21 | MHC.CM.PN ---
cm met w/pt and utility worker woolen mill to complete a hcp, pt named her gdtr Jassi Roths [phone] as her HCA w/no alternate, copy uploaded to [facility] and original/copy/handout given to gdtr at bedside. auth pending at [facility]
[2023-11-07 15:47] VITALS: BP 135/65; PULSE 80; RESP 18; TEMP 36.6; O2SAT 98
[2023-11-07 16:27] LABS: Glucose, Whole Blood 236 mg/dL (60-115)
[2023-11-07 20:56] LABS: Glucose, Whole Blood 253 mg/dL (60-115)
[2023-11-07] MEDS: Mirtazapine 15 MG TABLET PO (20:57)
[2023-11-07] MEDS: Insulin Glargine,Hum.rec.anlog 100 UNIT/ML 10 ML VIAL 30 UNIT SUBCUT (20:58)
[2023-11-07 22:00] VITALS: BP 127/74; PULSE 80; RESP 18; O2SAT 98
--- NOTE | 2023-11-08 01:56 | PC.NURSE ---
Patient resting with her eyes closed, RR 18, breathing is even and unlabored without distress. Bed alarm on, call morales in patient's reach. ?
[2023-11-08 05:29] VITALS: BP 153/51; PULSE 73; RESP 16; TEMP 36.2; O2SAT 99
--- NOTE | 2023-11-08 08:46 | PC.NURSE ---
orquidea texted Eliana in pharmacy to bring lexapro
[2023-11-08 08:47] LABS: Glucose, Whole Blood 221 mg/dL (60-115)
[2023-11-08] MEDS: metFORMIN HCl ER 500 MG TAB.ER.24H PO ×2 (08:48→20:57)
[2023-11-08] MEDS: Ascorbic Acid 500 MG TABLET PO (08:48)
[2023-11-08] MEDS: Cholecalciferol (Vitamin D3) 25 MCG TABLET 50 MCG PO (08:48)
[2023-11-08] MEDS: Loratadine 10 MG TABLET PO (08:48)
[2023-11-08] MEDS: Aspirin Enteric Coated 81 MG TABLET.DR PO (08:48)
[2023-11-08] MEDS: Topiramate 25 MG TABLET 50 MG PO ×2 (08:48→20:57)
[2023-11-08] MEDS: Gabapentin 300 MG CAPSULE PO ×3 (08:48→20:56)
[2023-11-08] MEDS: cefuroxime axetiL 250 MG TABLET PO ×2 (08:48→20:58)
[2023-11-08] MEDS: Insulin Lispro 100 UNIT/ML 3 ML VIAL SUBCUT ×4 (08:48→20:58)
[2023-11-08] MEDS: Acetaminophen 325 MG TABLET 650 MG PO ×3 (08:53→20:57)
--- NOTE | 2023-11-08 09:59 | MHC.CM.ED ---
Patient remains in ER overflow[facility] Anticipate this will not happen before tomorrow, Wednesday 11/08. Continue to monitor for d/c needs.
[2023-11-08] MEDS: Escitalopram Oxalate 10 MG TABLET PO (10:30)
--- NOTE | 2023-11-08 10:30 | PC.NURSE ---
Patient is A&O, reports 4/10 left leg pain, helped patient reposition left leg for comfort/medicated with tylenol. Chronic left sided weakness noted, vss. Patient took meds whole with water. Plan is for patient to go to [facility] [place] when insurance auth is obtained.
[2023-11-08 11:58] LABS: Glucose, Whole Blood 257 mg/dL (60-115)
[2023-11-08 13:36] VITALS: BP 135/68; PULSE 94; RESP 18; TEMP 36.2; O2SAT 98
--- NOTE | 2023-11-08 14:10 | PC.NURSE ---
PT UP TO BEDSIDE COMMODE AND WAS WASHED UP BY CHECK PROCESSING CLERK.
[2023-11-08] MEDS: clonazePAM 0.5 MG TABLET PO (14:54)
[2023-11-08 16:25] LABS: Glucose, Whole Blood 270 mg/dL (60-115)
[2023-11-08] MEDS: Mirtazapine 15 MG TABLET PO (20:57)
[2023-11-08] MEDS: Insulin Glargine,Hum.rec.anlog 100 UNIT/ML 10 ML VIAL 30 UNIT SUBCUT (20:57)
[2023-11-08] MEDS: Atorvastatin Calcium 20 MG TABLET PO (20:57)
[2023-11-08 21:00] VITALS: BP 141/66; PULSE 82; RESP 12; TEMP 36.6; O2SAT 96
--- NOTE | 2023-11-08 21:03 | PC.NURSE ---
Assumed care of this patient at 1900, patient requesting to sit up in chair, states back is sore from laying in bed, patient 1 assist to chair, pm POC and vitals taken, WNL, patient stated she's hot, cool cloth given to back of patient's neck, pm meds given per SEP. hourly sign language interpreter assist during assessment.
[2023-11-08 21:14] LABS: Glucose, Whole Blood 283 mg/dL (60-115)
--- NOTE | 2023-11-09 02:22 | PC.NURSE ---
Assumed care of patient at 23:30. Patient seen in ED overflow. Kuwaiti speaking, yolk spray drier used for assessment. Pt is A&Ox4. Can be resistive to repositioning, observed removing pillow after placed under one side by staff. Otherwise calm and cooperative. Denies pain. Offers no acute complaints. Breathing is even and unlabored without distress on RA. Pt is resting in bed with her eyes closed at this time. RR 16. Continues with left AC IV, flushes without issue. Bed alarm on and safety measures in place. Hourly purposeful rounding enacted. Will continue to monitor safety and comfort for remainder of typewriter aligner's scheduled care.
[2023-11-09 05:24] VITALS: BP 139/70; PULSE 78; RESP 18; TEMP 36.2; O2SAT 100
[2023-11-09 07:35] LABS: Glucose, Whole Blood 167 mg/dL (60-115)
[2023-11-09 08:07] VITALS: BP 110/56; PULSE 75; RESP 16; TEMP 36.2; O2SAT 97
--- NOTE | 2023-11-09 08:30 | PC.NURSE ---
PT IS A/O X 4. NO SOB/KATHY NOTED SPEAKS IN FULL SENTENCES. PT ATE 100% OF BREAKFAST. NO EDEMA NOTED. PT DENIES ANY PAIN/DISC. PT AWARE OF PLAN OF CARE. WILL CONTINUE TO MONITOR.
[2023-11-09] MEDS: Insulin Lispro 100 UNIT/ML 3 ML VIAL SUBCUT ×2 (08:44→12:01)
[2023-11-09] MEDS: metFORMIN HCl ER 500 MG TAB.ER.24H PO (08:45)
[2023-11-09] MEDS: cefuroxime axetiL 250 MG TABLET PO (08:45)
[2023-11-09] MEDS: Topiramate 25 MG TABLET 50 MG PO (08:45)
[2023-11-09] MEDS: Ascorbic Acid 500 MG TABLET PO (08:45)
[2023-11-09] MEDS: Loratadine 10 MG TABLET PO (08:45)
[2023-11-09] MEDS: Gabapentin 300 MG CAPSULE PO ×2 (08:45→15:37)
[2023-11-09] MEDS: Cholecalciferol (Vitamin D3) 25 MCG TABLET 50 MCG PO (08:46)
[2023-11-09] MEDS: Aspirin Enteric Coated 81 MG TABLET.DR PO (08:46)
[2023-11-09] MEDS: Escitalopram Oxalate 10 MG TABLET PO (09:10)
--- NOTE | 2023-11-09 10:30 | MHC.EDTECH ---
Patient washed up and mouth care done. Patient linens changed and patient dressed in new gown. This PCT and physical therapist assisted patient on a short walk out of the room and back, then positioned patient in recliner. Chair alarm on. Call morales placed within reach. Patient states she is comfortable. Patient resting at this time, respirations even and unlabored.
[2023-11-09 11:15] VITALS: BP 110/56; PULSE 75; O2SAT 97
[2023-11-09 11:59] LABS: Glucose, Whole Blood 251 mg/dL (60-115)
[2023-11-09] MEDS: Docusate Sodium 100 MG CAPSULE PO (12:01)
--- NOTE | 2023-11-09 14:27 | MHC.CM.ED ---
Patient remains in ER overflow. [facility] has obtained insurance auth. Patient can leave at 4pm. Derrek HERNANDEZ booked. Med nec with chart. Patient, Rosa RN and Yareli MARROQUIN aware. Continue to monitor for d/c needs.
--- NOTE | 2023-11-09 14:51 | MHC.EDTECH ---
Patient linens changed. Patient assisted back into bed with walker. Call morales placed within reach. Patient states she is comfortable. Patient resting, respirations even and unlabored.
[2023-11-09 15:00] VITALS: BP 130/62; PULSE 95; RESP 18; TEMP 36.6; O2SAT 97
--- NOTE | 2023-11-09 15:17 | PC.NURSE ---
IV D/C'D PRIOR TO TRANSFER TO SNF.
--- NOTE | 2023-11-09 15:24 | PC.NURSE ---
RN TO RN REPORT GIVEN TO LAVONNE ([facility], [phone]). PT AWARE OF PLAN OF CARE FOR TRANSFER TO SNF VIA EMS.
[2023-11-09 16:09] VITALS: BP 130/62; PULSE 95; RESP 18; TEMP 36.6; O2SAT 97
== END 2023-11-09 16:20 | disposition skilled nursing facility (03) ==
PROVIDERS: Emergency Medicine; Emergency Provider Emergency Medicine Emergency Medical Services; PCP Internal Medicine
DX: N39.0 Urinary tract infection, site not specified (principal); R42 Dizziness and giddiness; K59.00 Constipation, unspecified; E11.65 Type 2 diabetes mellitus with hyperglycemia; E11.40 Type 2 diabetes mellitus with diabetic neuropathy, unspecified; I10 Essential (primary) hypertension; G51.0 Bell's palsy; Z79.4 Long term (current) use of insulin; Z91.81 History of falling; Z03.818 Encounter for observation for suspected exposure to other biological agents ruled out
CPT/HCPCS: 0241U; 36415; 70450; 71045; 72125; 80048; 80076; 81001; 82140; 82550; 82947; 83605; 83690; 83735; 83880; 84484; 85025; 85610; 87040; 87086; 87088; 87147; 87186; 87205; 93005; 96365; 96366; 97116; 97162; 99285; J0696

== ENCOUNTER → 2023-11-06 11:03 | Outpatient (BNV) | payer OTHER, SELFPAY | PROVIDERS: Emergency Provider Emergency Medicine Emergency Medical Services; PCP Internal Medicine; Visit Provider Internal Medicine | DX: R94.31 Abnormal electrocardiogram [ECG] [EKG] (principal) | CPT/HCPCS: 93010 ==

== ENCOUNTER 2024-02-20 23:32 | Emergency (ER) | payer OTHER, SELFPAY ==
--- NOTE | ~2024-02-20 | CT_ITS ---
EXAMINATION: CT ABDOMEN AND PELVIS WITHOUT CONTRAST CLINICAL INFORMATION: Abdominal pain. Nausea. COMPARISON: None available. TECHNIQUE: Multidetector volumetric imaging was performed from the superior aspect of the liver through the pubic symphysis. Sagittal and coronal reformatted images were obtained on the technologist's workstation. This CT examination was performed using dose optimization techniques as appropriate, variously including the following: *Automated exposure control *Adjustment of mA and/or kV according to patient size (this includes techniques or standardized protocols for targeted exams where dose is matched to indication/reason for exam; i.e. extremities or head) *Use of iterative reconstruction technique DLP: 1006 mGy-cm FINDINGS: LUNG BASES: The visualized lung bases are unremarkable. LIVER, GALLBLADDER, AND BILIARY TREE: The liver is normal in size, shape, and attenuation. No focal hepatic lesion or biliary ductal dilatation is present. The gallbladder is unremarkable with no evidence of radiopaque gallstones, gallbladder wall thickening, or obvious pericholecystic inflammatory changes. PANCREAS: Unremarkable. SPLEEN: Unremarkable. ADRENAL GLANDS: Unremarkable. KIDNEYS AND URETERS: The kidneys are normal in size, shape, and attenuation. No hydronephrosis, hydroureter, or calculi seen. No perinephric stranding. BLADDER: Unremarkable. GASTROINTESTINAL TRACT: The small and large bowel are unremarkable. The appendix is unremarkable. ABDOMINAL WALL: No significant hernia is appreciated. LYMPH NODES: Normal. VASCULAR: Unremarkable. PELVIC VISCERA: Unremarkable. OSSEOUS STRUCTURES: Unremarkable. CT/CT abdomen pelvis wo IV con IMPRESSION: No significant abnormality. Fleischner guidelines were followed.
[2024-02-20 23:39] VITALS: BP 142/84; PULSE 93; O2SAT 96
[2024-02-20 23:41] VITALS: BP 126/70; PULSE 93; RESP 20; TEMP 37.1; O2SAT 96; BMI 34.8
[2024-02-20 23:45] VITALS: BP 126/70; PULSE 93; RESP 20; TEMP 37.1; O2SAT 96
[2024-02-21 00:01] LABS: MANUAL DIFF FLAG NO
[2024-02-21 00:02] LABS: Basophils Percent Auto 0.3 % (0-2); Eosinophils Absolute Auto 0.1 X10*3/uL (0.0-0.4); Eosinophils Percent Auto 0.6 % (0-4); Hematocrit 35.4 % (37.0-47.0); Hemoglobin 12.3 g/dl (12.0-16.0); Imm Gran Abs Auto 0.02 X10*3/uL (0.00-0.03); Imm Gran Pct Auto 0.2 % (0.0-0.4); Lymphocytes Absolute Auto 2.6 X10*3/uL (1.2-4.9); Lymphocytes Percent Auto 29.2 % (20-40); Mean Corpuscular HGB Conc 34.7 g/dl (31.0-35.0); Mean Corpuscular Hemoglobin 32.2 pg (27.0-33.0); Mean Corpuscular Volume 92.7 fL (80.0-98.0); Mean Platelet Volume 11.6 fL (9.4-12.3); Monocytes Absolute Auto 0.5 X10*3/uL (0.1-1.2); Monocytes Percent Auto 5.8 % (2-11); Neutrophils Absolute Auto 5.8 x10*3/uL (2.0-8.3); Neutrophils Percent Auto 63.9 % (45-73); Platelet Count 216 X10*3/uL (160-400); Red Blood Count 3.82 X10*6/uL (4.20-5.50); Red Cell Distribution Width 12.7 % (11.0-16.0)
[2024-02-21 00:17] LABS: Alanine Aminotransferase 24 U/L (0-31); Albumin Level 3.7 g/dL (3.5-5.0); Alkaline Phosphatase 75 U/L (39-117); Anion Gap 14 (12-20); Aspartate Amino Transferase 22 U/L (5-31); Bilirubin Total 0.3 mg/dL (0.0-1.0); Blood Urea Nitrogen 17 mg/dL (9-16); Calcium 9.8 mg/dL (8.4-10.2); Carbon Dioxide 20 mmol/L (22-29); Chloride 109 mmol/L (96-108); Estimated Glomerular Filt Rate 53; Glucose Random 287 mg/dL (60-115); Lipase 32 U/L (8-78); Potassium 4.3 mmol/L (3.3-5.1); Sodium 139 mmol/L (135-145); Total Protein 7.4 g/dL (6.5-8.0)
--- NOTE | 2024-02-21 00:34 | ED.GENADULT ---
HPI - General Adult General Chief complaint: General Medical Stated complaint: headache Time Seen by Provider: 02/21/24 00:30 Source: patient, RN notes reviewed, old records reviewed and mechanical artist (Evy) Limitations: other (Cambodian) History of Present Illness HPI narrative: 73-year-old female who has a history of diabetes, fibromyalgia, hypertension, hyperlipidemia, presents for evaluation of generalized weakness abdominal pain and nausea. Patient states she had gradual onset of lower abdominal pain approximately 1 week ago. She has had associated dysuria and frequency. She lives home alone and typically ambulates with a walker or cane. She has had decreased activity over the past several days and has been unable to get out of bed on her own. She has a SPECIAL EFFECTS SPECIALIST that provides 3 hours of care daily. She denies any falls. The pain in her lower abdomen is pressure, pain that is sharp, and constant. She is able to tolerate some food intake. Patient is otherwise feeling well. She has not tried any medication for this. Of note, the patient's SPECIAL EFFECTS SPECIALIST was positive for COVID recently. The patient denies any URI symptoms. In addition, patient reports pain in her abdomen is more pronounced in the left lower quadrant. Related Data Home Medications ?Medication ?Instructions ?Recorded ?Confirmed cetirizine 10 mg tablet 10 mg PO DAILY 12/09/22 11/06/23 insulin aspart U-100 100 unit/mL 1 sliding scale dose subcut TIDAC 12/09/22 11/06/23 (3 mL) subcutaneous pen (Novolog FlexPen U-100 Insulin aspart) insulin glargine 100 unit/mL (3 30 unit subcut BEDTIME 12/09/22 11/06/23 mL) subcutaneous pen (Lantus Solostar U-100 Insulin) acetaminophen 650 mg 650 mg PO Q6H PRN pain 12/16/22 11/06/23 tablet,extended release mirtazapine 15 mg tablet 15 mg PO BEDTIME 12/16/22 11/06/23 albuterol sulfate 90 mcg/actuation 2 puff inhalation Q4H PRN 02/13/23 11/06/23 aerosol inhaler Shortness Of Breath Or Wheezing citalopram 20 mg tablet 20 mg PO DAILY 02/13/23 11/06/23 gabapentin 300 mg capsule 300 mg PO TID 02/13/23 11/06/23 peg [id number] 1 1 drp ophthalmic (eye) QID PRN Dry 02/13/23 11/06/23 %-0.2 %-0.2 % eye drops (Dry Eye Eyes Relief) atorvastatin 20 mg tablet 20 mg PO BEDTIME 11/06/23 11/06/23 tirzepatide 2.5 mg/0.5 mL 2.5 mg subcut QWEEK 11/06/23 11/06/23 subcutaneous pen injector (Felipe) Previous Rx's ?Medication ?Instructions ?Recorded ascorbic acid (vitamin C) 500 mg 500 mg PO DAILY 30 days #30 tabs 11/19/22 tablet (Vitamin C) aspirin 81 mg tablet,delayed 81 mg PO DAILY 30 days #30 tabs 11/19/22 release blood sugar diagnostic (FreeStyle #150 ea 11/19/22 Lite Strips) cholecalciferol (vitamin D3) 50 50 mcg PO DAILY 30 days #30 caps 11/19/22 mcg (2,000 unit) capsule clonazepam 0.5 mg tablet 0.5 mg PO DAILY PRN Anxiety 30 11/19/22 days #30 tabs lancets 33 gauge (TRUEplus Lancets) #100 ea 11/19/22 metformin 500 mg tablet,extended 500 mg PO BID #60 tabs 11/19/22 release 24 hr pen needle, diabetic 32 gauge x #50 ea 11/19/22 simethicone 80 mg chewable tablet 80 mg PO TID PRN gas 30 days #30 11/19/22 (Gas Relief (simethicone)) tabs topiramate 50 mg tablet 50 mg PO BID 30 days #60 tabs 11/19/22 Allergies Allergy/AdvReac Type Severity Reaction Status Date / Time COVID-19 vacc, bv (Orig, Allergy Severe Swelling Verified 02/20/24 23:50 Omicron BA.4/5) (Pfizer) [From Pfizer COVID Bival(12y up)(PF)] homosalate [From Coppertone] Allergy Intermediate RASH, itchy Verified 02/20/24 23:50 octinoxate [From Coppertone] Allergy Intermediate RASH, itchy Verified 02/20/24 23:50 oxybenzone [From Coppertone] Allergy Intermediate RASH, itchy Verified 02/20/24 23:50 pioglitazone Allergy Unknown Unknown Verified 02/20/24 23:50 pollen extracts Allergy Unknown Unknown Verified 02/20/24 23:50 diovan Allergy Unknown rash Uncoded 05/15/23 03:09 Review of Systems Constitutional: Constitutional: Denies chills and Denies fever(s) Cardiovascular: Cardiovascular: Denies chest pain, Denies dyspnea, Denies dyspnea on exertion and Denies orthopnea Respiratory: Respiratory: Denies cough, Denies dyspnea and Denies dyspnea on exertion Gastrointestinal: Gastrointestinal: Reports abdominal pain, Denies melena, Denies hematochezia, Denies diarrhea and Denies vomiting Musculoskeletal: Musculoskeletal: Denies back pain, Denies muscle weakness and Denies numbness Integumentary/Breasts: Skin/Breast: Denies rash Neurologic: Denies focal weakness and Denies numbness PMFSH Past Medical History Medical History Polanco's palsy Elevated hemoglobin A1c Left arm weakness Numbness and tingling in left arm Left shoulder pain Thoracic outlet syndrome Neck pain Left-sided weakness Colon cancer screening Microscopic hematuria Lung cancer Vitamin D deficiency Depression Fibromyalgia Obesity (BMI 30-39.9) Diabetic polyneuropathy associated with type 2 diabetes mellitus Hypertension custodial (current) use of insulin Dyslipidemia Diabetes type 2, uncontrolled Surgical History H/O: hysterectomy Family History Family History Father Osteoporosis Mother Stroke Cancer Social History Social History Household Members: None Housing: Apartment Do you presently have visiting nurse or other home services: Yes (pt reports having a SPECIAL EFFECTS SPECIALIST) Unable to assess alcohol history related to: Unable to respond Alcohol intake: former Patient Tobacco Use Status: Never used Tobacco Substance Use Type: Marijuana Advance Directives: Yes Advance Directives on File: Yes Advance Directives Date on File: 11/17/23 service: No Sexual orientation: Straight/Heterosexual Physical Exam ED Vital Signs: Vital Signs - 24 hr 02/20/24 23:41 02/20/24 23:45 Temperature 98.7 F 98.7 F Pulse Rate 93 93 Respiratory Rate 20 20 Blood Pressure 126/70 126/70 Pulse Oximetry 96 96 Oxygen Delivery Method Room Air Room Air BMI result Body Mass Index 34.8 Const General: alert and awake Orientation/consciousness: patient oriented x3 Limitations: language barrier Resp Auscultation: clear to auscultation bilaterally Cardio Rate: regular rate Rhythm: regular rhythm GI Other: Abdomen is soft with mild diffuse lower abdominal tenderness. No peritoneal signs. No CVAT Neuro General: patient oriented x3 Extrem Other: No calf tenderness or pedal edema Course Course Course Narrative: 1:45 a.m. patient resting comfortably at this time. Urinalysis returned and is negative. COVID swab is negative. CT is pending at this time. 2:00 a.m. patient signed out in stable condition with CT and disposition pending to Dr. Kay. Medications Administered Discontinued Medications Generic Name Dose Route Start Last Admin Trade Name Freq PRN Reason Stop Dose Admin Sodium Chloride 500 mls @ 500 mls/hr 02/21/24 00:52 02/21/24 01:07 Ns IV 02/21/24 01:51 500 mls/hr .Q1H STA Administration Ceftriaxone Sodium 1 gm/ 50 mls @ 100 mls/hr 02/21/24 00:52 02/21/24 01:49 Sodium Chloride IV 02/21/24 01:21 Not Given ONCE ONE Medical Decision Making Medical Decision Making [facility] Narrative: 73-year-old female with a history of diabetes, hypertension, and multiple other medical history, presents with a one-week history of lower abdominal pain that is progressively worsening. She is now weak, unable to perform her ADLs despite having SPECIAL EFFECTS SPECIALIST help. In addition she was exposed to her SPECIAL EFFECTS SPECIALIST who is COVID positive. Urinalysis pending at this time. Remainder of labs are at baseline. Given that patient's symptoms, age, and history, will check CT to further evaluate for other intra-abdominal pathology. Patient will likely need to be brought to the hospital for further evaluation and management versus case management placement. Differential Diagnosis Differential Diagnoses: The differential diagnosis associated with the presentation includes Bacteremia Pyelonephritis Diverticulitis Dehydration Admission/Observation Consideration of admission/observation: Escalation of care including admission/observation considered Patient to be brought into the hospital for further evaluation and management if clinically warranted Lab Data [facility] Lab Attestation statement: I reviewed the patient's lab results. 02/20/24 23:57 02/20/24 23:57 Labs: Lab Results 02/20/24 02/21/24 Range/Units 23:57 01:35 WBC 9.0 (4.8-10.8) X10*3/uL RBC 3.82 L (4.20-5.50) X10*6/uL Hgb 12.3 (12.0-16.0) g/dl Hct 35.4 L (37.0-47.0) % MCV 92.7 (80.0-98.0) fL MCH 32.2 (27.0-33.0) pg MCHC 34.7 (31.0-35.0) g/dl RDW 12.7 (11.0-16.0) % Plt Count 216 (160-400) X10*3/uL MPV 11.6 (9.4-12.3) fL Immature Gran % (Auto) 0.2 (0.0-0.4) % Neut % (Auto) 63.9 (45-73) % Lymph % (Auto) 29.2 (20-40) % Crowley % (Auto) 5.8 (2-11) % Eos % (Auto) 0.6 (0-4) % Baso % (Auto) 0.3 (0-2) % Lymph # (Auto) 2.6 (1.2-4.9) X10*3/uL Crowley # (Auto) 0.5 (0.1-1.2) X10*3/uL Eos # (Auto) 0.1 (0.0-0.4) X10*3/uL Baso # (Auto) 0.0 (0.0-0.2) X10*3/uL Abs Immat Gran (auto) 0.02 (0.00-0.03) X10*3/uL Absolute Neuts (auto) 5.8 (2.0-8.3) x10*3/uL Absolute Nucleated RBC 0.000 (0.0-0.012) X10*3/uL Nucleated RBC % (auto) 0.0 (0.0-0.2) /100WBC Sodium 139 (135-145) mmol/L Potassium 4.3 (3.3-5.1) mmol/L Chloride 109 H (96-108) mmol/L Carbon Dioxide 20 L (22-29) mmol/L Anion Gap 14 (12-20) BUN 17 H (9-16) mg/dL Creatinine 1.03 (0.5-1.4) mg/dL Estim Creat Clear Calc 53.0 Estimated GFR 53 Random Glucose 287 H (60-115) mg/dL Calcium 9.8 (8.4-10.2) mg/dL Total Bilirubin 0.3 (0.0-1.0) mg/dL AST 22 (5-31) U/L ALT 24 (0-31) U/L Alkaline Phosphatase 75 (39-117) U/L Total Protein 7.4 (6.5-8.0) g/dL Albumin 3.7 (3.5-5.0) g/dL Lipase 32 (8-78) U/L Urine Color Yellow Urine Appearance Clear Urine pH 6.0 (5.0-9.0) Ur Specific Rolfe 1.025 (1.005-1.025) Urine Protein Negative (Neg-Trace) mg/dL Urine Glucose (UA) Negative (Negative) mg/dL Urine Ketones Trace (Negative) mg/dL Urine Blood Negative (Negative) Urine Nitrite Negative (Negative) Ur Leukocyte Esterase Negative (Negative) Influenza Type A (PCR) NEGATIVE (Negative) Influenza Type B (PCR) NEGATIVE (Negative) RSV RNA Qual (PCR) NEGATIVE (Negative) SARS-CoV-2 RNA (RT-PCR) NEGATIVE (Negative) External Record Review External record reviewed: Inpatient record Chronic Conditions Patient?s care impacted by: Diabetes and Hypertension Discharge Plan Discharge Clinical Impression: Abdominal pain Patient Disposition: Still a Patient Prescriptions: No Action simethicone [Gas Relief (simethicone)] 80 mg Tablet,Chewable 80 mg PO TID PRN (Reason: gas) 30 Days Qty: 30 0RF clonazepam 0.5 mg tablet 0.5 mg PO DAILY PRN (Reason: Anxiety) 30 Days Qty: 30 0RF (DME) FreeStyle Lite Strips Strip See Rx Instructions .ROUTE .MEDSUPPLY Qty: 150 11RF Rx Instructions: 4 times a day aspirin 81 mg tablet,delayed release (DR/EC) 81 mg PO DAILY 30 Days Qty: 30 0RF ascorbic acid (vitamin C) [Vitamin C] 500 mg Tablet 500 mg PO DAILY 30 Days Qty: 30 0RF metformin 500 mg tablet extended release 24 hr 500 mg PO BID Qty: 60 0RF topiramate 50 mg tablet 50 mg PO BID 30 Days Qty: 60 0RF cholecalciferol (vitamin D3) 50 mcg (2,000 unit) capsule 50 mcg PO DAILY 30 Days Qty: 30 0RF (DME) pen needle, diabetic 32 gauge x 5/32 needle See Rx Instructions subcut .MEDSUPPLY Qty: 50 0RF Rx Instructions: As directed (DME) lancets [TRUEplus Lancets] 33 gauge misc See Rx Instructions .ROUTE .MEDSUPPLY Qty: 100 0RF Rx Instructions: As directed test blood sugar 4 times a day cetirizine 10 mg tablet 10 mg PO DAILY insulin aspart U-100 [Novolog FlexPen U-100 Insulin] 100 unit/mL (3 mL) insulin pen 1 sliding scale dose subcut TIDAC insulin glargine [Lantus Solostar U-100 Insulin] 100 unit/mL (3 mL) insulin pen 30 unit subcut BEDTIME citalopram 20 mg tablet 20 mg PO DAILY Dry Eye Relief 1-0.2-0.2 % drops 1 drp ophthalmic (eye) QID PRN (Reason: Dry Eyes) albuterol sulfate 90 mcg/actuation Hfa Aerosol Inhaler 2 puff INHALATION Q4H PRN (Reason: Shortness Of Breath Or Wheezing) gabapentin 300 mg capsule 300 mg PO TID atorvastatin 20 mg tablet 20 mg PO BEDTIME Mounjaro 2.5 mg/0.5 mL pen injector 2.5 mg subcut QWEEK acetaminophen 650 mg tablet extended release 650 mg PO Q6H PRN (Reason: pain) mirtazapine 15 mg tablet 15 mg PO BEDTIME Print Language: Cambodian
[2024-02-21 00:38] LABS: Influenza A PCR NEGATIVE (Negative); Influenza B PCR NEGATIVE (Negative); Resp Syncy Virus RNA Qual PCR NEGATIVE (Negative); SARS COV2 PCR INHOUSE NEGATIVE (Negative)
[2024-02-21] MEDS: 0.9 % Sodium Chloride 500 ML IV (01:07)
[2024-02-21 01:41] LABS: Appearance Urine Clear; Color Urine Yellow; Glucose Urine UA Negative (Negative); Leukocyte Esterase Urine Negative (Negative); Nitrite Urine Negative (Negative); Specific Gravity - Urine 1.025 (1.005-1.025); Urine Blood Negative (Negative); Urine Ketones Trace mg/dL (Negative); Urine Protein Negative (Neg-Trace)
[2024-02-21 02:00] VITALS: BP 138/68; PULSE 86; RESP 14; TEMP 36.2; O2SAT 99
[2024-02-21 04:00] VITALS: BP 139/67; PULSE 79; RESP 16; TEMP 37.1; O2SAT 98
[2024-02-21 04:37] LABS: Glucose, Whole Blood 226 mg/dL (60-115)
[2024-02-21] MEDS: Acetaminophen 325 MG TABLET 650 MG PO (04:44)
[2024-02-21] MEDS: Milk of Magnesia 30 ML ORAL.SUSP PO (04:44)
[2024-02-21 05:57] VITALS: BP 150/63; PULSE 81; RESP 16; TEMP 36.6; O2SAT 96
--- NOTE | 2024-02-21 06:37 | PC.NURSE ---
walking trial with pt, 2 assist for safety, pt very unsteady on her feet with walker, unable to walk to nurses station. very shaky. aware
--- NOTE | 2024-02-21 06:39 | PC.NURSE ---
20g IV L forearm/wrist. purewick in place
--- NOTE | 2024-02-21 07:08 | PC.NURSE ---
patient resting on stretcher, purewick in place and attached to wall suction, appears to be functioning, report recieved from previous rn, patient with many complaints for this RN, stating she cant move her legs, she has to pee, shes cold, blanket was applied, patient then stated she was too hot. blanket removed. patient sat up on stretcher, educated on use of purewick, provided with breakfast tray, callbell within reach
[2024-02-21 07:22] LABS: Glucose, Whole Blood 274 mg/dL (60-115)
--- NOTE | 2024-02-21 07:59 | PC.NURSE ---
pharmacy called to complete med rec on patient.
[2024-02-21 09:22] VITALS: BP 151/73; PULSE 77; RESP 16; TEMP 36.6; O2SAT 98
--- NOTE | 2024-02-21 11:13 | PC.NURSE ---
second call placed to pharmacy to complete med rec
--- NOTE | 2024-02-21 11:44 | PHA.MEDREC ---
Addendum entered by Kelley Rivera RPh 02/21/24 12:14: Reviewed by [facility] Original Note: Pharmacy Consult ? Medication Reconciliation Pharmacy has completed the medication reconciliation. Spoke with patient to confirm medications. She confirmed Lantus 30 units at bedtime. She uses Mounjaro on Wednesdays and had it last Thursday. Her eye drops are everyday. She uses her gabapentin 2-3x/day depending on her pain. She took her medications yesterday, none today.
[2024-02-21 12:26] VITALS: BP 157/80; PULSE 71; RESP 16; TEMP 36.5; O2SAT 99
--- NOTE | 2024-02-21 13:36 | MHC.CM.ED ---
Addendum entered by Alice Vila 02/21/24 15:42: Patient is not active with [facility]. Will need to check with Rebeka of [facility] on Thursday about which [facility] patient is active with. Original Note: Received case management consult overnight. Patient came to the ER due to headache. Work up essentially negative, however patient experiencing generalized weakness. Physical therapy eval ordered but not available before Thursday. Met with patient and subscription crew leader in regards to discharge planning. Patient lives alone, uses walker/cane for mobility and has a nurse that comes to assist with insulin daily. Patient is unsure of VNA agency. Patient was d/c'd from [facility] with [facility] 11/23/23. Referral made to [facility] to verify if patient is active with their agency. Patient aware PT eval is not available until Thursday. Patient requesting referral to [facility] because she feels STR will be needed. Referral made via [facility]. Continue to monitor for d/c needs.
[2024-02-21 13:43] LABS: Glucose, Whole Blood 265 mg/dL (60-115)
--- NOTE | 2024-02-21 17:20 | MHC.EDTECH ---
This pct gave patient walker and assisted patient walking to the bathroom, the patient also walked back to the room on her own . the patient preferred to sit on a chair instead of laying on the bed. The patient also mentioned she does not want to go to PT at the [facility] tomorrow , she will like to do PT with her home care music therapist at home.
--- NOTE | 2024-02-21 17:39 | PC.NURSE ---
report given to overflow rn, patient to be moved to overflow unit. medication rec completed, to order home medications for patinet. patient being transferred over to overflow by EDT
[2024-02-21] MEDS: metFORMIN HCl ER 500 MG TAB.ER.24H PO (18:12)
[2024-02-21] MEDS: Escitalopram Oxalate 10 MG TABLET PO (18:12)
--- NOTE | 2024-02-21 18:30 | PC.NURSE ---
Patient arrived to [facility] at 1740, was able to transfer to bed with walker and 1 assist. Patient requested joann stating she will not be able to get up to the commode. Patient also stated that she would like to go home instead of rehab.
--- NOTE | 2024-02-21 21:02 | MHC.EDTECH ---
POC Glucose completed @ 02/21/24 20:57. Result 228 mg/dL. SATYA alcala.
[2024-02-21 21:04] LABS: Glucose, Whole Blood 228 mg/dL (60-115)
[2024-02-21] MEDS: Insulin Glargine,Hum.rec.anlog 100 UNIT/ML 10 ML VIAL 30 UNIT SUBCUT (22:04)
[2024-02-21] MEDS: Gabapentin 300 MG CAPSULE PO (22:05)
[2024-02-21] MEDS: Mirtazapine 15 MG TABLET PO (22:05)
[2024-02-21] MEDS: Atorvastatin Calcium 20 MG TABLET PO (22:05)
[2024-02-21 22:40] VITALS: BP 133/69; PULSE 73; RESP 16; TEMP 36.6; O2SAT 99
[2024-02-21] MEDS: Topiramate 25 MG TABLET 50 MG PO (23:53)
[2024-02-21] MEDS: clonazePAM 0.5 MG TABLET PO (23:58)
[2024-02-22 00:28] VITALS: BP 146/53; PULSE 79; RESP 16; TEMP 36.4; O2SAT 96
--- NOTE | 2024-02-22 00:31 | PC.NURSE ---
Patient requested Clonazepam 0.5 mg PO PRN for anxiety, she reports she is feeling anxious and unable to fall asleep.
[2024-02-22 01:08] LABS: Glucose, Whole Blood 231 mg/dL (60-115)
[2024-02-22 06:31] VITALS: BP 107/49; PULSE 72; RESP 16; TEMP 36.1; O2SAT 97
--- NOTE | 2024-02-22 07:22 | MHC.CM.PN ---
Addendum entered by Chloe Armando 02/22/24 11:02: PT ACTIVE WITH [facility], RETURN REFERRAL PLACED Addendum entered by Chloe Armando 02/22/24 10:57: CM CALLED PTS [facility]AM EMERY, WITH A TACTICAL DEBRIEFER OFFICER SHE REPORTS HE KNOWS THE PT WILL NOT DO PHYSICAL THERAPY AT HOME OR OUTPATIENT SHE SAYS SHE KNOWS HER AND KNOWS SHE IS GOING TO REFUSE PER DISCUSSION, CM AGREED TO APPROACH PT WITH STR ONE MORE TIME PT CONTINUES TO REFUSE STR., SHE ALSO IS ADAMANT SHE DOES NOT WANT PT VIA THE VNA PT ENCOURAGED TO DISCUSS INCREASED CLEANING LABORER HOURS WITH HER CCA GAS ENGINE REPAIRER [facility] IS AWARE OF PENDING DC AND WILL CHECK IN WITH PT WITHIN 48 HOURS Addendum entered by Chloe Armando 02/22/24 10:38: VM LEFT FOR [facility] LIAISON REQUESTING A CALL BACK WITH PTS [facility] INFORMATION Addendum entered by Chloe Armando 02/22/24 09:55: PT NOW STATES SHE IS NOT INTERESTED IN STR AND WANTS TO DC HOME SHE SAYS SHE HAS A VNA THAT DOES HER INSULIN, BUT DOES NOT WANT PT ADDED SHE SAYS SHE WANTS TO COME OUT OF THE HOME TO OUTPATIENT PT SHE REPORTS SHE HAS A CLEANING LABORER 5 DAYS PER WEEK WELL AND USES A WALKER PT REPORTS HER CLEANING LABORER, PAM [phone] WILL TRANSPORT Original Note: [facility] HAS CLINICALLY ACCEPTED PENDING APPROPRIATE PT EVAL RESULTS AND INSURANCE AUTH
[2024-02-22 07:45] LABS: Glucose, Whole Blood 273 mg/dL (60-115)
[2024-02-22] MEDS: Aspirin Enteric Coated 81 MG TABLET.DR PO (08:33)
[2024-02-22] MEDS: Insulin Lispro 100 UNIT/ML 3 ML VIAL SUBCUT ×3 (08:33→17:02)
[2024-02-22] MEDS: Ascorbic Acid 500 MG TABLET PO (08:35)
[2024-02-22] MEDS: metFORMIN HCl ER 500 MG TAB.ER.24H PO ×2 (08:35→16:21)
[2024-02-22] MEDS: Loratadine 10 MG TABLET PO (08:35)
[2024-02-22] MEDS: Escitalopram Oxalate 10 MG TABLET PO (08:35)
[2024-02-22] MEDS: Gabapentin 300 MG CAPSULE PO ×2 (08:36→21:34)
[2024-02-22] MEDS: Artificial Tears 15 ML DROPS 1 DROP EYE-BOTH ×2 (10:40→14:41)
[2024-02-22] MEDS: Cholecalciferol (Vitamin D3) 25 MCG TABLET 50 MCG PO (10:41)
[2024-02-22] MEDS: Topiramate 25 MG TABLET 50 MG PO ×2 (10:41→21:34)
[2024-02-22 11:50] LABS: Glucose, Whole Blood 380 mg/dL (60-115)
--- NOTE | 2024-02-22 12:06 | PC.NURSE ---
10units of insulin administered per sliding scale. JUWAN Brian notified/aware of POC of 380mg/dL.
[2024-02-22 14:00] VITALS: BP 140/70; PULSE 81; RESP 18; O2SAT 94
[2024-02-22 16:00] VITALS: BP 142/81; PULSE 92; RESP 16; TEMP 37; O2SAT 99
[2024-02-22 17:03] LABS: Glucose, Whole Blood 229 mg/dL (60-115)
[2024-02-22 19:28] VITALS: BP 149/79; PULSE 92; RESP 16; TEMP 36.6; O2SAT 99
[2024-02-22 21:29] LABS: Glucose, Whole Blood 225 mg/dL (60-115)
[2024-02-22] MEDS: Mirtazapine 15 MG TABLET PO (21:34)
[2024-02-22] MEDS: Atorvastatin Calcium 20 MG TABLET PO (21:34)
[2024-02-22] MEDS: Insulin Glargine,Hum.rec.anlog 100 UNIT/ML 10 ML VIAL 30 UNIT SUBCUT (21:34)
--- NOTE | 2024-02-22 21:39 | PC.NURSE ---
too early for clonazepam, will hold until she can have it as no other RN here for wittness return
[2024-02-22] MEDS: clonazePAM 0.5 MG TABLET PO (22:50)
--- NOTE | 2024-02-23 02:38 | PC.NURSE ---
Took report from off-going RN at 2300 hours. Pt is a 73 y/o female here from home for evaluation of increasing weakness, abd pain, and headache. Pleasantly confused at times, this is baseline. Abd CT was negative for finding. Easily arousable with verbal stimuli. Daughter would like consideration for short term rehab versus discharge home. Uses walker with supervision, considerably stable with ambulation. Has 20G in left FA. Takes meds whole. Uses call light appropriately and verbalizes needs. Bed is at lowest position. Intermittently sleeping, appears comfortable, changes positions as desired independently. Final disposition is still pending. Will continue to monitor for changes.
--- NOTE | 2024-02-23 03:12 | PC.NURSE ---
OOB to commode with assist of one. Back to bed after toileting and repositioned for comfort. Pt reports having a headache, rated 6/10. Pt believes pain is related to the pillows. Requesting tylenol for pain. Will continue to monitor for any changes.
[2024-02-23] MEDS: Acetaminophen 325 MG TABLET 650 MG PO (03:19)
--- NOTE | 2024-02-23 04:10 | PC.NURSE ---
Pt sleeping, appears comfortable, changes positions independently as desired. No acute distress observed. Easily arousable with verbal stimuli. Call light within reach. Will continue to monitor for changes.
[2024-02-23] MEDS: oxyCODONE HCl Immed Release 5 MG TABLET PO (05:42)
[2024-02-23 05:50] VITALS: BP 144/52; PULSE 76; RESP 12; TEMP 36.6; O2SAT 99
--- NOTE | 2024-02-23 06:55 | PC.NURSE ---
Pt is intermitently sleeping, appears comfortable. Changes positions as desired independently. No acute distress noted. Some relief from medication for headache. Will continue to monitor for changes.
[2024-02-23 06:58] LABS: Glucose, Whole Blood 237 mg/dL (60-115)
[2024-02-23] MEDS: Insulin Lispro 100 UNIT/ML 3 ML VIAL SUBCUT ×3 (07:52→17:01)
[2024-02-23] MEDS: Aspirin Enteric Coated 81 MG TABLET.DR PO (07:55)
[2024-02-23] MEDS: Ascorbic Acid 500 MG TABLET PO (07:56)
[2024-02-23] MEDS: metFORMIN HCl ER 500 MG TAB.ER.24H PO ×2 (07:56→17:01)
[2024-02-23] MEDS: Escitalopram Oxalate 10 MG TABLET PO (07:56)
[2024-02-23] MEDS: Gabapentin 300 MG CAPSULE PO (07:56)
[2024-02-23] MEDS: Cholecalciferol (Vitamin D3) 25 MCG TABLET 50 MCG PO (07:56)
[2024-02-23] MEDS: Loratadine 10 MG TABLET PO (07:56)
[2024-02-23] MEDS: Artificial Tears 15 ML DROPS 1 DROP EYE-BOTH (07:56)
[2024-02-23] MEDS: Topiramate 25 MG TABLET 50 MG PO (10:00)
[2024-02-23 11:57] LABS: Glucose, Whole Blood 187 mg/dL (60-115)
--- NOTE | 2024-02-23 12:55 | MHC.CM.ED ---
Patient remains in ER overflow. Verified with patient that she is declining STR and wants to return home. T/W offered BLS transport. Patient's TECHNOLOGY RECRUITER will transport her home at 6pm. Garrett RINCON made aware. Alejandra HERNADEZ and Medina MARROQUIN aware. Continue to monitor for d/c needs.
[2024-02-23 14:10] VITALS: BP 107/55; PULSE 85; RESP 14; TEMP 37.2; O2SAT 99
[2024-02-23 17:08] LABS: Glucose, Whole Blood 275 mg/dL (60-115)
[2024-02-23 18:07] VITALS: BP 110/55; PULSE 85; RESP 14; TEMP 37.2; O2SAT 99
== END 2024-02-23 18:07 | disposition still patient (30) ==
PROVIDERS: Emergency Provider Internal Medicine; PCP Internal Medicine
DX: R10.32 Left lower quadrant pain (principal); R51.9 Headache, unspecified; R11.0 Nausea; R30.0 Dysuria; I10 Essential (primary) hypertension; R26.2 Difficulty in walking, not elsewhere classified; E11.9 Type 2 diabetes mellitus without complications; Z79.4 Long term (current) use of insulin; Z03.818 Encounter for observation for suspected exposure to other biological agents ruled out; Z79.899 Other long term (current) drug therapy
CPT/HCPCS: 0241U; 51702; 74176; 80053; 81003; 82947; 83690; 85025; 96365; 97162; 99285; J0696

== ENCOUNTER 2024-03-02 12:33 | Inpatient (IN) | payer OTHER, SELFPAY ==
--- NOTE | ~2024-03-02 | MR_ITS ---
EXAMINATION: MR BRAIN WITHOUT CONTRAST CLINICAL INFORMATION: Cerebrovascular accident. COMPARISON: CT angiogram of the head and neck 03/02/2024. TECHNIQUE: MRI of the brain was obtained using routine sequences without contrast. FINDINGS: There are scattered nonspecific foci of T2 FLAIR signal hyperintensity within the periventricular white matter. No acute territorial infarct. No pathological magnetic susceptibility artifact. Intracranial vascular flow voids are grossly maintained. There is no intracranial mass effect or midline shift. No abnormal extra-axial collection. Lateral and third ventricles are normal. No hydrocephalus. Midline structures including the cervicomedullary junction are normal. No acute bone marrow signal changes. There is no mastoid or middle ear effusion. Mild paranasal sinus disease primarily affecting the ethmoid air cells. Globes and orbits are symmetric. MR/MR head/brain wo con IMPRESSION: There are scattered chronic small vessel ischemic changes within the periventricular white matter. Otherwise unremarkable examination. No evidence of acute territorial infarct or hemorrhage. Electronically signed by: Kris Khalil MD 03/03/2024 02:09 PM EDT
--- NOTE | ~2024-03-02 | CT_ITS ---
EXAMINATION: CT HEAD WITHOUT CONTRAST/STROKE ALERT CLINICAL INFORMATION: Acute stroke, left facial droop. COMPARISON: None available. TECHNIQUE: Contiguous axial imaging was performed from the skull-base to vertex without intravenous administration of contrast. This CT examination was performed using dose optimization techniques as appropriate, variously including the following: *Automated exposure control *Adjustment of mA and/or kV according to patient size (this includes techniques or standardized protocols for targeted exams where dose is matched to indication/reason for exam; i.e. extremities or head) *Use of iterative reconstruction technique DLP: 754 mGy-cm FINDINGS: Ventricles, sulci and cisterns are prominent. Low-attenuation focal lesions are seen in the left frontal deep white matter and bilateral periventricular white matters. There is no midline shift, no abnormal intra- or extra- axial fluid accumulation. Browning and white matter differentiation is normal. Bone window images show no evidence of skull fracture. CT/CT head for stroke IMPRESSION: 1. Unchanged minimal age related cerebral atrophy, bilateral frontal periventricular ischemic white matter disease compatible with microangiopathy.. 2. No intracranial hemorrhage or skull fracture is seen. 3. No evidence of space occupying lesion could be found. 4. The current plain CT scan of the brain shows no diagnostic evidence of acute cerebral infarction. This critical result was discussed with Dr. Sukhwinder Parra on 03/02/2024 at 1312 hours and it was ascertained that the content and urgency of this report was understood at the time of direct communication. Electronically signed by: Abdirashid Swan MD 03/02/2024 01:14 PM EDT
--- NOTE | ~2024-03-02 | CT_ITS ---
EXAMINATION: CT ANGIOGRAM HEAD CT ANGIOGRAM NECK CLINICAL INFORMATION: Stroke. Left-sided facial droop. COMPARISON: CT head from 03/02/2024. CT head and cervical spine from 11/06/2023. TECHNIQUE: Initial noncontrast wound treatment rn imaging of the head and neck was performed. Comparison is made with noncontrast head CT from earlier today. Test bolus sequences followed by intravenous administration 70 mL of Omnipaque 350. Helical imaging was performed in the axial plane from the aortic arch to the skull vertex. The data was processed at the certified cytotechnologist's workstation for generation of MIP sequences. Angled MIPs and volume rendered reformatted images were also generated at an offline 3D workstation. Stenoses are assessed in accordance with NASCET criteria unless otherwise indicated. This CT examination was performed using dose optimization techniques as appropriate, variously including the following: *Automated exposure control. *Adjustment of mA and/or kV according to patient size (this includes techniques or standardized protocols for targeted exams where dose is matched to indication/reason for exam; i.e. extremities or head). *Use of iterative reconstruction technique. DLP: 679 mGy-cm FINDINGS: CT Head: There is no evidence of acute intracranial hemorrhage or edematous territorial infarction. Browning-white matter differentiation is preserved. A few foci of hypoattenuation in the periventricular and deep white matter are consistent with mild microangiopathy. The ventricles are normal in morphology and size. No evidence for obstructive hydrocephalus. No abnormal mass effect or midline shift. No extra-axial fluid collections. No pathologic intra-axial arterial enhancement. No acute soft tissue or osseous abnormalities. Mild mucosal thickening of the paranasal sinuses. The mastoid air cells and middle ear cavities are clear. CT Neck: The thyroid gland and remaining cervical soft tissues are within normal limits. Straightening of the normal cervical lordosis. Mild degenerative anterolisthesis of C2 and C3. Advanced degenerative disease at C3-C4 and from C5-C7. Facet and uncovertebral joint arthropathy leads to osseous encroachment on the neural foramina from C3-C7. CT Upper Chest: The visualized lung apices and upper mediastinum are within normal limits. Neck CTA: Aortic Arch: Normal contour and caliber with mild calcific atherosclerotic disease. Classic 3 vessel branching pattern of the aortic arch. Great Vessel Origins: No significant stenosis of the branch origins. Right Common Carotid Artery: No focal stenosis or occlusion. Cervical Right Internal Carotid Artery: Mild atherosclerotic disease of the carotid bulb and proximal internal carotid artery without flow-limiting stenosis. Left Common Carotid Artery: No focal stenosis or occlusion. Cervical Left Internal Carotid Artery: Mild atherosclerotic disease of the carotid bulb and proximal internal carotid artery without flow-limiting stenosis. Cervical Right Vertebral Artery: Dominant. No focal stenosis or occlusion. Cervical Left Vertebral Artery: No focal stenosis or occlusion. Brain CTA: Intracranial Internal Carotid Arteries: Calcific atherosclerotic disease of the intracranial internal carotid arteries without occlusion or flow-limiting stenosis. Right Anterior Cerebral Artery: Normal A1 segment. Normal opacification of the distal HIRAM segments. Left Anterior Cerebral Artery: Normal A1 segment. Normal opacification of the distal HIRAM segments. Anterior Communicating Artery: Normal. Right Middle Cerebral Artery: Normal M1 segment of the MCA without focal stenosis or occlusion. Normal arborization of the distal segments. Left Middle Cerebral Artery: Normal M1 segment of the MCA without focal stenosis or occlusion. Normal arborization of the distal segments. Right Vertebral Artery: Normal V4 segment. Normal opacification of the proximal segments of the posterior inferior cerebellar artery. Left Vertebral Artery: Normal V4 segment. Normal opacification of the proximal segments of the posterior inferior cerebellar artery. Basilar Artery: Normal without focal stenosis or occlusion. Normal appearance of the proximal superior cerebellar arteries. Right Posterior Cerebral Artery: Normal P1 segment. Normal opacification of the distal SUPERVISOR ASBESTOS REMOVAL segments. Left Posterior Cerebral Artery: Normal P1 segment. Normal opacification of the distal SUPERVISOR ASBESTOS REMOVAL segments. CT/CT angio head neck stroke IMPRESSION: 1. CTA of the head and neck without proximal occlusion or flow-limiting stenosis. 2. The brain parenchyma is better evaluated on concurrent CT of the head. Within the limitations of this exam, there is no evidence of new intracranial hemorrhage or abnormal mass effect. Mild underlying microangiopathy. 3. Moderate multilevel degenerative spondyloarthropathy of the cervical spine. Electronically signed by: Socrates Gutierrez DO 03/02/2024 01:25 PM EDT
--- NOTE | ~2024-03-02 | CT_ITS ---
EXAMINATION: CT ABDOMEN AND PELVIS WITHOUT CONTRAST CLINICAL INFORMATION: Left-sided flank pain COMPARISON: CT scan abdomen and pelvis February 21, 2024 TECHNIQUE: Multidetector volumetric imaging was performed from the superior aspect of the liver through the pubic symphysis. Sagittal and coronal reformatted images were obtained on the technologist's workstation. This CT examination was performed using dose optimization techniques as appropriate, variously including the following: *Automated exposure control *Adjustment of mA and/or kV according to patient size (this includes techniques or standardized protocols for targeted exams where dose is matched to indication/reason for exam; i.e. extremities or head) *Use of iterative reconstruction technique DLP: 893 mGy-cm FINDINGS: LUNG BASES: The visualized lung bases are unremarkable. LIVER, GALLBLADDER, AND BILIARY TREE: The liver is normal in size, shape, and attenuation. No focal hepatic lesion or biliary ductal dilatation is present. The gallbladder is unremarkable with no evidence of radiopaque gallstones, gallbladder wall thickening, or obvious pericholecystic inflammatory changes. PANCREAS: Unremarkable. SPLEEN: Unremarkable. ADRENAL GLANDS: Unremarkable. KIDNEYS AND URETERS: The kidneys are normal in size, shape, and attenuation. No hydronephrosis, hydroureter, or calculi seen. No perinephric stranding. BLADDER: Unremarkable. GASTROINTESTINAL TRACT: The small and large bowel are unremarkable. The appendix is unremarkable. ABDOMINAL WALL: No significant hernia is appreciated. LYMPH NODES: Normal. VASCULAR: Unremarkable. PELVIC VISCERA: Status post hysterectomy. OSSEOUS STRUCTURES: Unremarkable. CT/CT abdomen pelvis wo IV con IMPRESSION: No acute abnormality CT scan abdomen pelvis. Fleischner guidelines were followed. Electronically signed by: Moustapha White MD 03/02/2024 06:45 PM EDT
--- NOTE | 2024-03-02 12:41 | ECG_ITS ---
Test Reason : STROKE Blood Pressure : / mmHG Vent. Rate : 081 BPM Atrial Rate : 081 BPM P-R Int : 138 ms QRS Dur : 080 ms QT Int : 384 ms P-R-T Axes : 077 017 015 degrees QTc Int : 446 ms Normal sinus rhythm Nonspecific T wave abnormality Abnormal ECG When compared with ECG of 06-NOV-2023 11:04, No significant change was found Referred By: Sukhwinder Parra Electronically Signed By:NOLBERTO FORD
--- NOTE | 2024-03-02 12:43 | ED_ITS ---
HPI - General Adult General Chief complaint: Stroke Stated complaint: LLQ PAIN,ORANGE URIN PER EMS Time Seen by Provider: 03/02/24 12:40 History of Present Illness ED Provider: Fidel [facility] narrative: 73-year-old female with past medical history numbness and tingling to left arm, depression, diabetes, diabetic neuropathy, hypertension, dyslipidemia presenting for left flank pain however upgraded to stroke. EMS was called after patient Laura complaining of left flank pain however when she arrived to the ED she was upgraded to a stroke code due to left-sided facial droop. Patient's aide is at bedside and states last known normal was Thursday when she left her. Last night patient called the age stating that she wanted to . This morning a noticed that patient had diffuse weakness and left-sided facial droop. Pt is complaining of headache and weakness Per aide patient has been experiencing left-sided arm and leg weakness for months Related Data Home Medications ?Medication ?Instructions ?Recorded ?Confirmed cetirizine 10 mg tablet 10 mg PO DAILY 12/09/22 02/21/24 insulin aspart U-100 100 unit/mL 1 sliding scale dose subcut TIDAC 12/09/22 02/21/24 (3 mL) subcutaneous pen (Novolog FlexPen U-100 Insulin aspart) insulin glargine 100 unit/mL (3 30 unit subcut BEDTIME 12/09/22 02/21/24 mL) subcutaneous pen (Lantus Solostar U-100 Insulin) acetaminophen 650 mg 650 mg PO Q6H PRN pain 12/16/22 02/21/24 tablet,extended release mirtazapine 15 mg tablet 15 mg PO BEDTIME 12/16/22 02/21/24 albuterol sulfate 90 mcg/actuation 2 puff inhalation Q4H PRN 02/13/23 02/21/24 aerosol inhaler Shortness Of Breath Or Wheezing citalopram 20 mg tablet 20 mg PO DAILY 02/13/23 02/21/24 gabapentin 300 mg capsule 300 mg PO BID-TID 02/13/23 02/21/24 peg [id number] 1 1 drp ophthalmic (eye) TID Dry Eyes 02/13/23 02/21/24 %-0.2 %-0.2 % eye drops (Dry Eye Relief) atorvastatin 20 mg tablet 20 mg PO BEDTIME 11/06/23 02/21/24 tirzepatide 2.5 mg/0.5 mL 2.5 mg subcut WE 11/06/23 02/21/24 subcutaneous pen injector (Felipe) Previous Rx's ?Medication ?Instructions ?Recorded ascorbic acid (vitamin C) 500 mg 500 mg PO DAILY 30 days #30 tabs 11/19/22 tablet (Vitamin C) aspirin 81 mg tablet,delayed 81 mg PO DAILY 30 days #30 tabs 11/19/22 release blood sugar diagnostic (FreeStyle #150 ea 11/19/22 Lite Strips) cholecalciferol (vitamin D3) 50 50 mcg PO DAILY 30 days #30 caps 11/19/22 mcg (2,000 unit) capsule clonazepam 0.5 mg tablet 0.5 mg PO DAILY PRN Anxiety 30 11/19/22 days #30 tabs lancets 33 gauge (TRUEplus Lancets) #100 ea 11/19/22 metformin 500 mg tablet,extended 500 mg PO BID #60 tabs 11/19/22 release 24 hr pen needle, diabetic 32 gauge x #50 ea 11/19/22 5/32 simethicone 80 mg chewable tablet 80 mg PO TID PRN gas 30 days #30 11/19/22 (Gas Relief (simethicone)) tabs topiramate 50 mg tablet 50 mg PO BID 30 days #60 tabs 11/19/22 Allergies Allergy/AdvReac Type Severity Reaction Status Date / Time COVID-19 vacc, bv (Orig, Allergy Severe Swelling Verified 03/02/24 12:59 Omicron BA.4/5) (Pfizer) [From Pfizer COVID Bival(12y up)(PF)] homosalate [From Coppertone] Allergy Intermediate RASH, itchy Verified 03/02/24 12:59 octinoxate [From Coppertone] Allergy Intermediate RASH, itchy Verified 03/02/24 12:59 oxybenzone [From Coppertone] Allergy Intermediate RASH, itchy Verified 03/02/24 12:59 pioglitazone Allergy Unknown Unknown Verified 03/02/24 12:59 pollen extracts Allergy Unknown Unknown Verified 03/02/24 12:59 diovan Allergy Unknown rash Uncoded 05/15/23 03:09 Review of Systems 2 Review of Systems: Patient is complaining of weakness, left flank and head pain She denies chest pain, shortness breath, abdominal pain, dysuria, hematuria, fevers, PMFSH Past Medical History Attestation statement: The following information was validated with the patient. [facility] Narrative: numbness and tingling to left arm, depression, diabetes, diabetic neuropathy, hypertension, dyslipidemia Source: old records reviewed Medical History Polanco's palsy Elevated hemoglobin A1c Left arm weakness Numbness and tingling in left arm Left shoulder pain Thoracic outlet syndrome Neck pain Left-sided weakness Colon cancer screening Microscopic hematuria Lung cancer Vitamin D deficiency Depression Fibromyalgia Obesity (BMI 30-39.9) Diabetic polyneuropathy associated with type 2 diabetes mellitus Hypertension prison (current) use of insulin Dyslipidemia Diabetes type 2, uncontrolled Surgical History H/O: hysterectomy Family History Family History Father Osteoporosis Mother Stroke Cancer Social History Social History Household Members: None Housing: Apartment Do you presently have visiting nurse or other home services: Yes (pt reports having a BODY PAINTER) Unable to assess alcohol history related to: Unable to respond Alcohol intake: former Patient Tobacco Use Status: Never used Tobacco Smoked in Last 30 Days: No Use of substances other than those prescribed or required for medical reasons: No Substance Use Type: Marijuana Advance Directives: Yes Advance Directives on File: Yes Advance Directives Date on File: 11/17/23 Do you have a plan to hurt others: No Plan Nutrition Risks: Difficulty swallowing service: No Sexual orientation: Straight/Heterosexual Physical Exam ED Vital Signs: Vital Signs - 24 hr 03/02/24 12:56 03/02/24 13:15 03/02/24 14:12 Temperature 96.4 F L 97.8 F 97.6 F Pulse Rate 85 85 81 Respiratory Rate 18 16 16 Blood Pressure 156/74 H 150/81 H 153/74 H Pulse Oximetry 97 100 97 Oxygen Delivery Method Room Air Room Air Room Air 03/02/24 15:06 03/02/24 18:55 Temperature 97.6 F Pulse Rate 82 73 Respiratory Rate 18 14 Blood Pressure 153/80 H 143/57 H Pulse Oximetry 99 98 Oxygen Delivery Method Room Air Room Air BMI result Body Mass Index 33.3 Left facial droop Weakness in both upper and lower extremities lungs clear to auscultation bilaterally; normal S1-S2 regular rate rhythm Abdomen is soft nontender nondistended Mild left CVA tenderness to palpation NIH Stroke Scale Internal: Initial- Upon Arrival Time: 12:50 Level of Consciousness: Alert Level of Consciousness Questions: Answers both questions correctly Level of Consciousness Commands: Performs both tasks correctly Best Gaze: Normal Visual: No visual loss Facial Palsy: Partial paralysis Motor Arm (Right): No drift Motor Arm (Left): No drift Motor Leg (Right): No drift Motor Leg (Left): No drift Limb Ataxia: Absent Sensory: Normal Best Language: No aphasia Dysarthia: Normal Extinction and Inattention: No abnormality Score: 2 Medications Administered Generic Name Dose Route Start Last Admin Trade Name Freq PRN Reason Stop Dose Admin Enoxaparin Sodium 40 mg 03/02/24 21:00 03/02/24 21:02 Enoxaparin Sodium 40 Mg/0.4 Ml Syringe SUBCUT 40 mg Q24H DIANA Administration Morphine Sulfate 2 mg 03/02/24 20:36 03/02/24 21:03 Morphine Sulfate 2 Mg/Ml Cartridge IVPUSH 2 mg Q4H PRN Administration Pain, Severe (Pain Scale 7-10) Protocol Discontinued Medications Generic Name Dose Route Start Last Admin Trade Name Freq PRN Reason Stop Dose Admin Aspirin 81 mg 03/02/24 13:34 03/02/24 13:43 Aspirin Enteric Coated 81 Mg Tablet. PO 03/02/24 13:35 Not Given ONCE ONE Diphenhydramine HCl 25 mg 03/02/24 13:07 03/02/24 13:24 Diphenhydramine Hcl 50 Mg/Ml Vial IVPUSH 03/02/24 13:08 25 mg ONCE ONE Administration Famotidine 20 mg 03/02/24 13:19 03/02/24 14:13 Famotidine/Pf 20 Mg/2 Ml Vial IVPUSH 03/02/24 13:20 20 mg ONCE ONE Administration Insulin Glargine 15 unit 03/02/24 20:01 03/02/24 21:03 Insulin Glargine,Hum.Rec.Anlog 100 Unit/Ml 10 Ml Vial SUBCUT 03/02/24 20:02 15 unit ONCE ONE Administration Medical Decision Making Medical Decision Making [facility] Narrative: 73-year-old presenting due to concerns for UTI however found to have left-sided facial droop and made a stroke alert CT and CTA head were negative for bleed/LVO After patient received contrast she began complaining of difficulty breathing. Benadryl and Pepcid were given I spoke with on-call neurologist who recommended MRI and admission Patient admitted to medicine Differential Diagnosis Differential Diagnoses: The differential diagnosis associated with the presentation includes Stroke, hypoglycemia, underlying infectious/UTI, electrolyte/metabolic disturbance Consult Healthcare Provider Management of the patient was discussed with: Wrap Checker (Neurologist) I spoke with Dr. Torres who recommended MRI, aspirin and admission Dr. Tavarez accepted admission Lab Data [facility] Lab Attestation statement: I reviewed the patient's lab results. H&H stable, BMP unremarkable, no concern for a UTI 03/02/24 12:47 03/02/24 12:47 Labs: Lab Results 03/02/24 03/02/24 03/02/24 Range/Units 12:44 12:47 14:02 WBC 9.3 (4.8-10.8) X10*3/uL RBC 4.06 L (4.20-5.50) X10*6/uL Hgb 13.2 (12.0-16.0) g/dl Hct 37.6 (37.0-47.0) % MCV 92.6 (80.0-98.0) fL MCH 32.5 (27.0-33.0) pg MCHC 35.1 H (31.0-35.0) g/dl RDW 12.5 (11.0-16.0) % Plt Count 234 (160-400) X10*3/uL MPV 11.8 (9.4-12.3) fL Immature Gran % (Auto) 0.4 (0.0-0.4) % Neut % (Auto) 69.2 (45-73) % Lymph % (Auto) 23.6 (20-40) % [place] % (Auto) 5.6 (2-11) % Eos % (Auto) 0.9 (0-4) % Baso % (Auto) 0.3 (0-2) % Lymph # (Auto) 2.2 (1.2-4.9) X10*3/uL [place] # (Auto) 0.5 (0.1-1.2) X10*3/uL Eos # (Auto) 0.1 (0.0-0.4) X10*3/uL Baso # (Auto) 0.0 (0.0-0.2) X10*3/uL Abs Immat Gran (auto) 0.04 H (0.00-0.03) X10*3/uL Absolute Neuts (auto) 6.5 (2.0-8.3) x10*3/uL Absolute Nucleated RBC 0.000 (0.0-0.012) X10*3/uL Nucleated RBC % (auto) 0.0 (0.0-0.2) /100WBC PT 12.0 (11.1-13.3) SEC Whole Blood PT 11.2 (11.1-13.5) sec INR 1.0 (0.9-1.1) Whole Blood INR 0.9 (0.9-1.1) APTT 26.1 (26.0-36.8) SEC Sodium 138 (135-145) mmol/L Potassium 4.1 (3.3-5.1) mmol/L Chloride 107 (96-108) mmol/L Carbon Dioxide 23 (22-29) mmol/L Anion Gap 12 (12-20) BUN 15 (9-16) mg/dL Creatinine 1.07 (0.5-1.4) mg/dL Estim Creat Clear Calc TNP Estimated GFR 51 POC Glucose 333 H (60-115) mg/dL Random Glucose 344 H (60-115) mg/dL Calcium 10.2 (8.4-10.2) mg/dL Magnesium 1.9 (1.6-2.6) mg/dL Total Bilirubin 0.4 (0.0-1.0) mg/dL Direct Bilirubin 0.2 (0.0-0.5) mg/dL AST 21 (5-31) U/L ALT 25 (0-31) U/L Alkaline Phosphatase 75 (39-117) U/L Troponin I High Sens 3.1 (<3.5-17.0) ng/L Total Protein 8.0 (6.5-8.0) g/dL Albumin 4.1 (3.5-5.0) g/dL Triglycerides 50 (<150) mg/dL Cholesterol 130 (<200) mg/dL LDL Cholesterol, Calc 52 (<100) mg/dL HDL Cholesterol 68 (>40) mg/dL Lipase 40 (8-78) U/L TSH 1.63 (0.32-4.0) uIU/mL Urine Color Yellow Urine Appearance Clear Urine pH 8.0 (5.0-9.0) Ur Specific [place] >= 1.030 H (1.005-1.025) Urine Protein Negative (Neg-Trace) mg/dL Urine Glucose (UA) 500 H (Negative) mg/dL Urine Ketones Negative (Negative) mg/dL Urine Blood Negative (Negative) Urine Nitrite Positive H (Negative) Ur Leukocyte Esterase Trace H (Negative) Urine RBC 0-2 (0-2) /HPF Urine WBC 0-5 (0-5) /HPF Ur Squamous Epith Cells 0-2 (0-2) /HPF Urine Bacteria 4+ (None Seen) Hyaline Casts 0-2 (0-2) /LPF Independent Interpretation I performed an independent interpretation of an: EKG and CT Scan Interpretation: No ischemic changes seen on EKG No large head bleed or LVO appreciated Radiology Impression Discussion of test interpretation with radiology: I have reviewed the radiologist's reading. Discharge Plan Discharge Clinical Impression: Facial droop Patient Disposition: Admitted As Inpatient
[2024-03-02 12:48] LABS: Glucose, Whole Blood 333 mg/dL (60-115)
[2024-03-02 12:50] LABS: Prothrombin Time Whole Bld POC 11.2 sec (11.1-13.5); ~PT, ~INR - Anti Coag Clinic 0.9 (0.9-1.1)
[2024-03-02 12:53] LABS: MANUAL DIFF FLAG NO
[2024-03-02 12:56] VITALS: BP 146/90; BP 156/74; PULSE 85; PULSE 86; RESP 18; TEMP 35.8; O2SAT 97; O2SAT 98; BMI 33.3
[2024-03-02 12:56] LABS: Basophils Percent Auto 0.3 % (0-2); Eosinophils Absolute Auto 0.1 X10*3/uL (0.0-0.4); Eosinophils Percent Auto 0.9 % (0-4); Hematocrit 37.6 % (37.0-47.0); Hemoglobin 13.2 g/dl (12.0-16.0); Imm Gran Abs Auto 0.04 X10*3/uL (0.00-0.03); Imm Gran Pct Auto 0.4 % (0.0-0.4); Lymphocytes Absolute Auto 2.2 X10*3/uL (1.2-4.9); Lymphocytes Percent Auto 23.6 % (20-40); Mean Corpuscular HGB Conc 35.1 g/dl (31.0-35.0); Mean Corpuscular Hemoglobin 32.5 pg (27.0-33.0); Mean Corpuscular Volume 92.6 fL (80.0-98.0); Mean Platelet Volume 11.8 fL (9.4-12.3); Monocytes Absolute Auto 0.5 X10*3/uL (0.1-1.2); Monocytes Percent Auto 5.6 % (2-11); Neutrophils Absolute Auto 6.5 x10*3/uL (2.0-8.3); Neutrophils Percent Auto 69.2 % (45-73); Platelet Count 234 X10*3/uL (160-400); Red Blood Count 4.06 X10*6/uL (4.20-5.50); Red Cell Distribution Width 12.5 % (11.0-16.0); White Blood Count 9.3 X10*3/uL (4.8-10.8)
[2024-03-02 13:06] LABS: Partial Thromboplastin Time 26.1 SEC (26.0-36.8)
[2024-03-02 13:10] LABS: Anion Gap 12 (12-20); Blood Urea Nitrogen 15 mg/dL (9-16); Calcium 10.2 mg/dL (8.4-10.2); Carbon Dioxide 23 mmol/L (22-29); Chloride 107 mmol/L (96-108); Cholesterol 130 mg/dL (<200); Estimated Glomerular Filt Rate 51; Glucose Random 344 mg/dL (60-115); HDL Cholesterol 68 mg/dL (>40); LDL Cholesterol Calculated 52 mg/dL (<100); Potassium 4.1 mmol/L (3.3-5.1); Sodium 138 mmol/L (135-145); Triglycerides 50 mg/dL (<150)
[2024-03-02 13:15] VITALS: BP 150/81; PULSE 85; RESP 16; TEMP 36.6; O2SAT 100
[2024-03-02 13:16] LABS: Troponin-I High Sensitivity 3.1 ng/L (<3.5-17.0)
[2024-03-02] MEDS: diphenhydrAMINE HCL 50 MG/ML VIAL 25 MG IVPUSH (13:24)
--- NOTE | 2024-03-02 13:42 | PC.NURSE ---
provider ordered PO ASA - provider notified/aware that pt did not pass nursing swallow evaluation. medication not given at this time. FISHING ROD TRIMMER remains bedside for support. plan of care ongoing. call morales placed within reach.
[2024-03-02 13:56] LABS: Magnesium 1.9 mg/dL (1.6-2.6)
[2024-03-02 14:03] LABS: Stroke Lab Use COMPLETE
--- NOTE | 2024-03-02 14:08 | PC.NURSE ---
saturnino utilized - urine obtained/sent to lab by tech.
[2024-03-02 14:12] VITALS: BP 153/74; PULSE 81; RESP 16; TEMP 36.4; O2SAT 97
[2024-03-02 14:12] LABS: Appearance Urine Clear; Color Urine Yellow; Glucose Urine UA 500 mg/dL (Negative); Leukocyte Esterase Urine Trace (Negative); Nitrite Urine Positive (Negative); Specific Gravity - Urine >= 1.030 (1.005-1.025); UMIC TRIGGER UACC YES; Urine Blood Negative (Negative); Urine Ketones Negative (Negative); Urine Protein Negative (Neg-Trace)
[2024-03-02] MEDS: Famotidine/PF 20 MG/2 ML VIAL IVPUSH (14:13)
[2024-03-02 14:17] LABS: Bacteria Urine 4+ (None Seen); Hyaline Casts Urine 0-2 /LPF (0-2); RBC Urine 0-2 /HPF (0-2); Squamous Epithelial Cell Urine 0-2 /HPF (0-2); UACC Culture Trigger YES; WBC Urine 0-5 /HPF (0-5)
[2024-03-02 14:19] LABS: TSH reflex Free T4 1.63 uIU/mL (0.32-4.0)
[2024-03-02 15:06] VITALS: BP 153/80; PULSE 82; RESP 18; O2SAT 99
[2024-03-02 15:13] LABS: Alanine Aminotransferase 25 U/L (0-31); Albumin Level 4.1 g/dL (3.5-5.0); Alkaline Phosphatase 75 U/L (39-117); Aspartate Amino Transferase 21 U/L (5-31); Bilirubin Direct 0.2 mg/dL (0.0-0.5); Bilirubin Total 0.4 mg/dL (0.0-1.0); Lipase 40 U/L (8-78)
[2024-03-02 18:55] VITALS: BP 143/57; PULSE 73; RESP 14; TEMP 36.4; O2SAT 98
--- NOTE | 2024-03-02 18:55 | PC.NURSE ---
pt verbalizing she needs to have BM. 1:1 assist needed to ambulate/utilize commode. pt did not have BM but urinated approx. 300ml of pale yellow urine. pt assisted back into bed. resting in no apparent distress. 1:1 sitter remains present. plan of care ongoing.
--- NOTE | 2024-03-02 19:41 | PM.IMHP ---
History of Present Illness Date of Service: 03/02/24 Chief Complaint: Facial droop This is a 73-year-old female with pertinent history of insulin-dependent diabetes mellitus with neuropathy, mood disorder, hypertension, mixed hyperlipidemia, fibromyalgia who initially presented to the emergency department for evaluation of leg pain but was found to have a facial droop. As per patient's aide, on the morning of presentation, patient was found to have facial droop and incoherent speech. Last known normal was 2 days prior to presentation. Patient states she has been falling and has had poor p.o. intake in the last 2 days. Also complaining of neuropathic leg pain. No fever, chills, chest discomfort, palpitations, shortness of breath, abdominal pain, changes in urinary or bowel habits. It also mentioned that patient said she wanted to 1 day prior to presentation. In the emergency department, CT head and CTA without any acute abnormality. Neurology was consulted who requested admission and obtaining MRI in a.m.. Review of Systems Constitutional: Constitutional: Reports malaise, Reports poor appetite and Reports weakness Cardiovascular: Cardiovascular: Reports no additional cardiovascular complaints Respiratory: Respiratory: Reports no additional respiratory complaints Gastrointestinal: Gastrointestinal: Reports no additional gastrointestinal complaints Genitourinary: Genitourinary: Reports no additional female genitourinary complaints Neurologic: Reports weakness [facility] Medical History Polanco's palsy Elevated hemoglobin A1c Left arm weakness Numbness and tingling in left arm Left shoulder pain Thoracic outlet syndrome Neck pain Left-sided weakness Colon cancer screening Microscopic hematuria Lung cancer Vitamin D deficiency Depression Fibromyalgia Obesity (BMI 30-39.9) Diabetic polyneuropathy associated with type 2 diabetes mellitus Hypertension skilled nursing (current) use of insulin Dyslipidemia Diabetes type 2, uncontrolled Family History Father Osteoporosis Mother Stroke Cancer Surgical History H/O: hysterectomy Social History Household Members: None Housing: Apartment Do you presently have visiting nurse or other home services: Yes (pt reports having a NATURAL GAS INSPECTOR) Unable to assess alcohol history related to: Unable to respond Alcohol intake: former Patient Tobacco Use Status: Never used Tobacco Substance Use Type: Marijuana Advance Directives: Yes Advance Directives on File: Yes Advance Directives Date on File: 11/17/23 Do you have a plan to hurt others: No Plan service: No Sexual orientation: Straight/Heterosexual Meds Allergies Allergy/AdvReac Type Severity Reaction Status Date / Time COVID-19 vacc, bv (Orig, Allergy Severe Swelling Verified 03/02/24 12:59 Omicron BA.4/5) (Pfizer) [From Pfizer COVID Bival(12y up)()] homosalate [From Coppertone] Allergy Intermediate RASH, itchy Verified 03/02/24 12:59 octinoxate [From Coppertone] Allergy Intermediate RASH, itchy Verified 03/02/24 12:59 oxybenzone [From Coppertone] Allergy Intermediate RASH, itchy Verified 03/02/24 12:59 pioglitazone Allergy Unknown Unknown Verified 03/02/24 12:59 pollen extracts Allergy Unknown Unknown Verified 03/02/24 12:59 diovan Allergy Unknown rash Uncoded 05/15/23 03:09 Home Medications ?Medication ?Instructions ?Recorded ?Confirmed ?Last Taken ?Type cetirizine 10 mg tablet 10 mg PO DAILY 12/09/22 02/21/24 02/20/24 History insulin aspart U-100 100 unit/mL 1 sliding scale dose subcut TIDAC 12/09/22 02/21/24 02/20/24 History (3 mL) subcutaneous pen (Novolog FlexPen U-100 Insulin aspart) insulin glargine 100 unit/mL (3 30 unit subcut BEDTIME 12/09/22 02/21/24 02/20/24 History mL) subcutaneous pen (Lantus Solostar U-100 Insulin) acetaminophen 650 mg 650 mg PO Q6H PRN pain 12/16/22 02/21/24 Unknown History tablet,extended release mirtazapine 15 mg tablet 15 mg PO BEDTIME 12/16/22 02/21/24 02/20/24 History albuterol sulfate 90 mcg/actuation 2 puff inhalation Q4H PRN 02/13/23 02/21/24 Unknown History aerosol inhaler Shortness Of Breath Or Wheezing citalopram 20 mg tablet 20 mg PO DAILY 02/13/23 02/21/2402/19/24 History gabapentin 300 mg capsule 300 mg PO BID-TID 02/13/23 02/21/24 02/20/24 History peg [id number] 1 1 drp ophthalmic (eye) TID Dry Eyes 02/13/23 02/21/24 02/20/24 History %-0.2 %-0.2 % eye drops (Dry Eye Relief) atorvastatin 20 mg tablet 20 mg PO BEDTIME 11/06/23 02/21/24 02/20/24 History tirzepatide 2.5 mg/0.5 mL 2.5 mg subcut WE 11/06/23 02/21/24 02/17/24 History subcutaneous pen injector (Felipe) Physical Exam Vital Signs and Narrative: Vital Signs: Last Vital Signs Temp 97.6 F 03/02/24 18:55 Pulse 73 03/02/24 18:55 Resp 14 03/02/24 18:55 BP 143/57 H 03/02/24 18:55 Pulse Ox 98 03/02/24 18:55 O2 Del Method Room Air 03/02/24 18:55 BMI result Body Mass Index 33.3 Middle-aged female lying in bed in no distress Neck supple, no JVD Regular rate and rhythm, S1-S2 heard Regular breath sounds bilaterally, no wheezing or crackles appreciated Abdomen soft nontender, no guarding, no rigidity Patient is awake, alert and oriented to self, place, time and person ; bilateral upper extremity weakness present, facial droop seen Psych: Anxious No pedal edema Results Labs 03/02/24 12:47 03/02/24 12:47 Labs: Laboratory Results - last 24 hr 03/02/24 03/02/24 03/02/24 12:44 12:47 14:02 MCV 92.6 MCH 32.5 MCHC 35.1 H RDW 12.5 Plt Count 234 MPV 11.8 Immature Gran % (Auto) 0.4 Neut % (Auto) 69.2 Lymph % (Auto) 23.6 [place] % (Auto) 5.6 Eos % (Auto) 0.9 Baso % (Auto) 0.3 Lymph # (Auto) 2.2 [place] # (Auto) 0.5 Eos # (Auto) 0.1 Baso # (Auto) 0.0 Abs Immat Gran (auto) 0.04 H Absolute Neuts (auto) 6.5 Absolute Nucleated RBC 0.000 Nucleated RBC % (auto) 0.0 PT 12.0 Whole Blood PT 11.2 INR 1.0 Whole Blood INR 0.9 APTT 26.1 Anion Gap 12 Estim Creat Clear Calc TNP Estimated GFR 51 POC Glucose 333 H Random Glucose 344 H Calcium 10.2 Magnesium 1.9 Total Bilirubin 0.4 Direct Bilirubin 0.2 AST 21 ALT 25 Alkaline Phosphatase 75 Troponin I High Sens 3.1 Total Protein 8.0 Albumin 4.1 Triglycerides 50 Cholesterol 130 LDL Cholesterol, Calc 52 HDL Cholesterol 68 Lipase 40 TSH 1.63 Urine Color Yellow Urine Appearance Clear Urine pH 8.0 Ur Specific [place] >= 1.030 H Urine Protein Negative Urine Glucose (UA) 500 H Urine Ketones Negative Urine Blood Negative Urine Nitrite Positive H Ur Leukocyte Esterase Trace H Urine RBC 0-2 Urine WBC 0-5 Ur Squamous Epith Cells 0-2 Urine Bacteria 4+ Hyaline Casts 0-2 Imaging Radiologist's Impressions: Impressions Head CT 03/02/24 12:41 IMPRESSION: 1. Unchanged minimal age related cerebral atrophy, bilateral frontal periventricular ischemic white matter disease compatible with microangiopathy.. 2. No intracranial hemorrhage or skull fracture is seen. 3. No evidence of space occupying lesion could be found. 4. The current plain CT scan of the brain shows no diagnostic evidence of acute cerebral infarction. This critical result was discussed with Dr. Sukhwinder Parra on 03/02/2024 at 1312 hours and it was ascertained that the content and urgency of this report was understood at the time of direct communication. Electronically signed by: Abdirashid Swan MD 03/02/2024 01:14 PM EDT RP Head/Neck CTA 03/02/24 12:51 IMPRESSION: 1. CTA of the head and neck without proximal occlusion or flow-limiting stenosis. 2. The brain parenchyma is better evaluated on concurrent CT of the head. Within the limitations of this exam, there is no evidence of new intracranial hemorrhage or abnormal mass effect. Mild underlying microangiopathy. 3. Moderate multilevel degenerative spondyloarthropathy of the cervical spine. Electronically signed by: Socrates Gutierrez DO 03/02/2024 01:25 PM EDT RP Abdomen/Pelvis CT 03/02/24 17:08 IMPRESSION: No acute abnormality CT scan abdomen pelvis. Fleischner guidelines were followed. Electronically signed by: Moustapha White MD 03/02/2024 06:45 PM EDT Assessment and Plan (1) Facial droop: Status: Acute Plan This is a 73-year-old female with pertinent history of insulin-dependent diabetes mellitus with neuropathy, mood disorder, hypertension, mixed hyperlipidemia, fibromyalgia who initially presented to the emergency department for evaluation of leg pain but was found to have a facial droop. #. Left-sided facial droop: Will admit patient with cardiac monitoring. Obtaining MRI for concerns of acute CVA. Neurology was consulted from the ER, appreciate assistance. Further workup based on MRI results #. Suicidal ideation in a patient with major depressive disorder: Consulting sitter and Psychiatry. Continue home mood stabilizers #. Insulin-dependent diabetes mellitus with hyperglycemia and neuropathy: Initiating basal plus insulin regimen. On gabapentin #. Hypertension: Hold antihypertensives to allow for permissive hypertension in the setting of possible acute CVA #. Mixed hyperlipidemia: On statin Med rec pending DVT prophylaxis: Lovenox Full code Admit as inpatient and will require two night minimum hospital stay for evaluation of facial droop (as above), which is not possible in a lesser acute setting. Specialist consult pending Quality Stroke Does the patient have a stroke diagnosis?: No VTE Prior VTE?: No VTE Risk Level:: Medical - moderate - high VTE Device Contraindication: Treatment Not Indicated VTE Drug Contraindication: N/A - Med Ordered
[2024-03-02 20:11] LABS: Glucose, Whole Blood 223 mg/dL (60-115)
[2024-03-02 20:32] LABS: Troponin-I High Sensitivity 5.1 ng/L (<3.5-17.0)
[2024-03-02] MEDS: Enoxaparin Sodium 40 MG/0.4 ML SYRINGE SUBCUT (21:02)
[2024-03-02] MEDS: Insulin Glargine,Hum.rec.anlog 100 UNIT/ML 10 ML VIAL 15 UNIT SUBCUT (21:03)
[2024-03-02] MEDS: Morphine Sulfate 2 MG/ML CARTRIDGE IVPUSH (21:03)
--- NOTE | 2024-03-02 21:06 | PC.NURSE ---
registered massage therapist services utilized - MRI form filled out/faxed/placed in pt's chart. pt verbalizing 8/10 left sided flank pain. PRN medication utilized. effectiveness pending. pt waiting to have MRI completed at this time. resting in no apparent distress. no sob/wob noted. respirations even/unlabored. lights dimmed. 1:1 sitter present. call morales placed within reach.
--- NOTE | 2024-03-02 21:20 | PC.NURSE ---
pt to MRI at this time.
--- NOTE | 2024-03-02 22:04 | PC.NURSE ---
pt returned from MRI at this time. per MRI, pt did not complete/want MRI as she states she was feeling claustrophobic. admitting provider notified/aware.
[2024-03-02 22:16] VITALS: BP 149/71; PULSE 76; RESP 18; TEMP 36.9; O2SAT 98
--- NOTE | 2024-03-02 22:36 | PHA.MEDREC ---
Pharmacy Consult ? 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 I tried calling Susan and it went to Voicemail but she does not have it set up yet. Will follow up in the morning to confirm med rec.
[2024-03-03] VITALS (7 sets, daily range): BP systolic 123–179; BP diastolic 64–87; PULSE 70–89; RESP 15–23; TEMP 35.9–36.6; O2SAT 97–100
[2024-03-03 00:54] LABS: Glucose, Whole Blood 200 mg/dL (60-115)
[2024-03-03] MEDS: Insulin Lispro 100 UNIT/ML 3 ML VIAL SUBCUT ×3 (01:27→22:31)
[2024-03-03] MEDS: Morphine Sulfate 2 MG/ML CARTRIDGE IVPUSH (04:17)
[2024-03-03] MEDS: ondansetron HCL 4 MG/2 ML VIAL IVPUSH (04:20)
[2024-03-03 05:26] LABS: MANUAL DIFF FLAG NO
[2024-03-03 05:28] LABS: Basophils Percent Auto 0.1 % (0-2); Eosinophils Absolute Auto 0.1 X10*3/uL (0.0-0.4); Eosinophils Percent Auto 0.7 % (0-4); Hematocrit 38.9 % (37.0-47.0); Hemoglobin 13.2 g/dl (12.0-16.0); Imm Gran Abs Auto 0.04 X10*3/uL (0.00-0.03); Imm Gran Pct Auto 0.4 % (0.0-0.4); Lymphocytes Absolute Auto 2.8 X10*3/uL (1.2-4.9); Lymphocytes Percent Auto 30.3 % (20-40); Mean Corpuscular HGB Conc 33.9 g/dl (31.0-35.0); Mean Corpuscular Hemoglobin 31.9 pg (27.0-33.0); Mean Platelet Volume 11.8 fL (9.4-12.3); Monocytes Absolute Auto 0.7 X10*3/uL (0.1-1.2); Monocytes Percent Auto 7.3 % (2-11); Neutrophils Absolute Auto 5.7 x10*3/uL (2.0-8.3); Neutrophils Percent Auto 61.2 % (45-73); Platelet Count 220 X10*3/uL (160-400); Red Blood Count 4.14 X10*6/uL (4.20-5.50); Red Cell Distribution Width 12.6 % (11.0-16.0); White Blood Count 9.4 X10*3/uL (4.8-10.8)
[2024-03-03 05:44] LABS: Anion Gap 15 (12-20); Blood Urea Nitrogen 11 mg/dL (9-16); Calcium 9.6 mg/dL (8.4-10.2); Carbon Dioxide 22 mmol/L (22-29); Chloride 109 mmol/L (96-108); Creatinine Clr Calc Pharmacy 65.1; Estimated Glomerular Filt Rate > 60; Glucose Random 165 mg/dL (60-115); Potassium 3.7 mmol/L (3.3-5.1); Sodium 142 mmol/L (135-145)
[2024-03-03 06:42] LABS: Glucose, Whole Blood 148 mg/dL (60-115)
--- NOTE | 2024-03-03 07:31 | PHA.MEDREC ---
Pharmacy Consult ? Medication Reconciliation Pharmacy has completed the medication reconciliation. Utilized claim history
--- NOTE | 2024-03-03 09:30 | MHC.CM.PN ---
IMM 03/03/24, PT ADMITTED W/FACIAL DROOP & R/O STROKE, MRI PENDING, CM MET W/PT VIA PUMP RUNNER, PT REPORTS SHE LIVES ALONE, USES A ROLLATER AND CANE, HAS A STOCK CHECKERER A FEW TIMES A WEEK AND NURSE WHO GIVES PT HER INSULIN, ON ADMISSION HER STOCK CHECKERER HAD NOTED SHE MADE SI STATEMENTS AND CURRENTLY HAS SITTER AND WILL NEED CARE TEAM CLEARANCE, PT WILL ALSO LIKELY NEED PT/OT EVAL IF + FOR STROKE. PCP AND HCP ON FILE VERIFIED, HCP IS MARÍA COLLIER HOWEVER THE NUMBER LISTED DOES NOT WORK, CM WILL NEED TO CHECK IN WITH PT FOR UPDATED NUMBER, PT DID GIVE CM VERBAL CONSENT TO CALL FLORAAIRJaime SHE DOES NOT REMEMBER NAME OF [facility] OR STOCK CHECKERER HRS.
[2024-03-03] MEDS: Loratadine 10 MG TABLET PO (09:44)
[2024-03-03] MEDS: Gabapentin 300 MG CAPSULE PO ×3 (09:44→21:08)
[2024-03-03] MEDS: Topiramate 25 MG TABLET 50 MG PO ×2 (09:44→21:08)
[2024-03-03] MEDS: Cholecalciferol (Vitamin D3) 25 MCG TABLET 50 MCG PO (09:44)
[2024-03-03] MEDS: Acetaminophen 325 MG TABLET 650 MG PO (09:44)
[2024-03-03] MEDS: Escitalopram Oxalate 10 MG TABLET PO (09:45)
[2024-03-03] MEDS: Ascorbic Acid 500 MG TABLET PO (09:45)
[2024-03-03] MEDS: 0.9 % Sodium Chloride Flush 3 ML SYRINGE IVFLUSH ×2 (09:45→16:14)
[2024-03-03] MEDS: Aspirin Enteric Coated 81 MG TABLET.DR PO (10:30)
--- NOTE | 2024-03-03 11:15 | MHC.SL.SWA ---
Speech Pathologist Impression: Risk of Aspiration Due to: Neurological Condition Dysphasia Diet Status: Liquid Consistency and Strategies for Safe Swallow: Liquid Intake Recommendation: Thin Liquid Intake Strategies: Solid Food Consistency: Dietary Recommendations: Regular Additional Modifications to Solid Foods: Alternate liquids and solids, small bites/sips. Oral Medication Intake: Whole with Liquid Please contact the pharmacy regarding appropriate crushable or liquid drug formulations that are available whenever modified delivery is recommended. Compensatory Strategies and Precautions to be Taken for Safe Swallow: Sitting Upright (90 deg) Liquids from Cup Liquids from Straw Small Bites and Sips Alternate Liquids/Solids Supervision While Eating and Drinking for Safe Swallow: Intermittent Supervision Foods to Avoid: Too large pieces of food. Swallowing Recommended Treatments: Recommendation for Speech: Inpatient Speech Therapy Comment: Patient presents with evident L facial droop, primarily noticed with lips. Oral motor otherwise WFL, all aspects of swallow WFL. Recommend START diet of REGULAR, with THIN LIQUIDS, pills WHOLE WITH LIQUID. Patient currently with sitter, would benefit from some assistance at start of meal with tray set up (open up all items, make food/liquids accessible). FAMILY SERVICE CASEWORKER to f/u X1 for tolerance of diet and X1 to screen speech. , ANTONIO notified by secure text, RN in person, white board changed in room to reflect recommendations. Frequency/Duration: Date Range for Service Req: Timeline to reassess: Director Of Programming Clinican/Clinical Fellow: No Supervisory Statement: I have reviewed and agree with the student/clinical fellow's documentation: N/A Speech Language Pathologist: Ayana Mckeon M.A., [facility])-FAMILY SERVICE CASEWORKER
[2024-03-03 12:07] LABS: Glucose, Whole Blood 236 mg/dL (60-115)
--- NOTE | 2024-03-03 12:24 | P.PNIM_ITS ---
Subjective Subjective Date of Service: 03/03/24 Interval History: This history was taken in [place] from the patient. L facial droop, L arm + leg weakness endorses depression/SI Review of Systems Review of Systems: Yes all other systems are reviewed and are negative Physical Exam 2 Vital Signs: Vital Signs: Last Vital Signs Temp 97.6 F 03/03/24 11:38 Pulse 78 03/03/24 11:38 Resp 20 03/03/24 11:38 BP 145/87 H 03/03/24 11:38 Pulse Ox 98 03/03/24 11:38 O2 Del Method Room Air 03/03/24 11:38 BMI result Body Mass Index 33.3 Gen: in no acute distress HEENT: sclera anicteric, moist mucus membranes Neck: supple Lungs: clear to auscultation bilaterally Heart: regular rate and rhythm, no murmurs Abd: soft, non-tender, non-distended Ext: no edema Skin: warm/well-perfused Neuro: alert and oriented x3, L facial droop, LUE 4/5 strength, LLE 4/5 strength Psych: appropriate affect Objective Data Active Medications Acetaminophen (Acetaminophen 325 Mg Tablet) 650 mg PO Q6H PRN PRN Reason: Pain, Mild (Pain Scale 1-3), fever or headache Last Admin: 03/03/24 09:44 Dose: 650 mg Documented By: LAURA Albuterol Sulfate (Albuterol Sulfate 90 Mcg 8 Gm Inhaler) 2 puff INHALE Q4H PRN PRN Reason: Shortness Of Breath Or Wheezing Ascorbic Acid (Ascorbic Acid 500 Mg Tablet) 500 mg PO DAILY [facility] Last Admin: 03/03/24 09:45 Dose: 500 mg Documented By: LAURA Aspirin (Aspirin Enteric Coated 81 Mg Tablet.) 81 mg PO DAILY [facility] Last Admin: 03/03/24 10:30 Dose: 81 mg Documented By: LAURA Atorvastatin Calcium (Atorvastatin Calcium 20 Mg Tablet) 20 mg PO BEDTIME [facility] Calcium Carbonate (Calcium Carbonate 750 Mg Tab.Chew) 750 mg PO Q4H PRN PRN Reason: Heartburn Clonazepam (Clonazepam 0.5 Mg Tablet) 0.5 mg PO DAILY PRN PRN Reason: Anxiety Enoxaparin Sodium (Enoxaparin Sodium 40 Mg/0.4 Ml Syringe) 40 mg SUBCUT Q24H [facility] Last Admin: 03/02/24 21:02 Dose: 40 mg Documented By: JOSE Escitalopram Oxalate (Escitalopram Oxalate 10 Mg Tablet) 10 mg PO DAILY [facility] Last Admin: 03/03/24 09:45 Dose: 10 mg Documented By: LAURA Gabapentin (Gabapentin 300 Mg Capsule) 300 mg PO TID [facility] Last Admin: 03/03/24 09:44 Dose: 300 mg Documented By: LAURA Glucose (Glucose Gel 15 Gm Gel..Gram.) 15 gm PO Q15M PRN; Protocol PRN Reason: per Hypoglycemia Standing Ord. Dextrose (D10) 250 mls @ 750 mls/hr IV Q15M PRN; Protocol PRN Reason: per Hypoglycemia Standing Ord. Insulin Glargine (Insulin Glargine,Hum.Rec.Anlog 100 Unit/Ml 10 Ml Vial) 30 unit SUBCUT BEDTIME [facility] Insulin Human Lispro (Insulin Lispro 100 Unit/Ml 3 Ml Vial) 0 unit SUBCUT Q6H [facility]; Protocol Last Admin: 03/03/24 06:43 Dose: Not Given Documented By: JONNATHAN Non-Admin Reason: POC 148 Comments: not applicable Loratadine (Loratadine 10 Mg Tablet) 10 mg PO DAILY [facility] Last Admin: 03/03/24 09:44 Dose: 10 mg Documented By: LAURA Magnesium Hydroxide (Milk Of Magnesia 30 Ml Oral.Susp) 30 ml PO DAILY PRN PRN Reason: Constipation Melatonin (Melatonin 3 Mg Tablet) 6 mg PO BEDTIME PRN PRN Reason: Insomnia Mirtazapine (Mirtazapine 15 Mg Tablet) 15 mg PO BEDTIME [facility] Morphine Sulfate (Morphine Sulfate 2 Mg/Ml Cartridge) 2 mg IVPUSH Q4H PRN; Protocol PRN Reason: Pain, Severe (Pain Scale 7-10) Last Admin: 03/03/24 04:17 Dose: 2 mg Documented By: JONNATHAN Ondansetron HCl (Ondansetron Hcl 4 Mg/2 Ml Vial) 4 mg IVPUSH Q8H PRN PRN Reason: Nausea and Vomiting Last Admin: 03/03/24 04:20 Dose: 4 mg Documented By: JONNATHAN Sodium Chloride (0.9 % Sodium Chloride Flush 3 Ml Syringe) [facility] Last Admin: 03/03/24 09:45 Dose: 3 ml Documented By: LAURA Topiramate (Topiramate 25 Mg Tablet) 50 mg PO BID [facility] Last Admin: 03/03/24 09:44 Dose: 50 mg Documented By: LAURA Vitamin D (Cholecalciferol (Vitamin D3) 25 Mcg Tablet) 50 mcg PO DAILY [facility] Last Admin: 03/03/24 09:44 Dose: 25 mcg Documented By: LAURA Labs 03/03/24 05:08 03/03/24 05:08 Labs: Laboratory Results - last 24 hr 03/02/24 03/02/24 03/02/24 12:44 12:47 14:02 MCV 92.6 MCH 32.5 MCHC 35.1 H RDW 12.5 Plt Count 234 MPV 11.8 Immature Gran % (Auto) 0.4 Neut % (Auto) 69.2 Lymph % (Auto) 23.6 [place] % (Auto) 5.6 Eos % (Auto) 0.9 Baso % (Auto) 0.3 Lymph # (Auto) 2.2 [place] # (Auto) 0.5 Eos # (Auto) 0.1 Baso # (Auto) 0.0 Abs Immat Gran (auto) 0.04 H Absolute Neuts (auto) 6.5 Absolute Nucleated RBC 0.000 Nucleated RBC % (auto) 0.0 PT 12.0 Whole Blood PT 11.2 INR 1.0 Whole Blood INR 0.9 APTT 26.1 Anion Gap 12 Estim Creat Clear Calc TNP Estimated GFR 51 POC Glucose 333 H Random Glucose 344 H Calcium 10.2 Magnesium 1.9 Total Bilirubin 0.4 Direct Bilirubin 0.2 AST 21 ALT 25 Alkaline Phosphatase 75 Troponin I High Sens 3.1 Total Protein 8.0 Albumin 4.1 Triglycerides 50 Cholesterol 130 LDL Cholesterol, Calc 52 HDL Cholesterol 68 Lipase 40 TSH 1.63 Urine Color Yellow Urine Appearance Clear Urine pH 8.0 Ur Specific [place] >= 1.030 H Urine Protein Negative Urine Glucose (UA) 500 H Urine Ketones Negative Urine Blood Negative Urine Nitrite Positive H Ur Leukocyte Esterase Trace H Urine RBC 0-2 Urine WBC 0-5 Ur Squamous Epith Cells 0-2 Urine Bacteria 4+ Hyaline Casts 0-2 03/02/24 03/02/24 03/03/24 19:55 20:07 00:40 MCV MCH MCHC RDW Plt Count MPV Immature Gran % (Auto) Neut % (Auto) Lymph % (Auto) [place] % (Auto) Eos % (Auto) Baso % (Auto) Lymph # (Auto) [place] # (Auto) Eos # (Auto) Baso # (Auto) Abs Immat Gran (auto) Absolute Neuts (auto) Absolute Nucleated RBC Nucleated RBC % (auto) PT Whole Blood PT INR Whole Blood INR APTT Anion Gap Estim Creat Clear Calc Estimated GFR POC Glucose 223 H 200 H Random Glucose Calcium Magnesium Total Bilirubin Direct Bilirubin AST ALT Alkaline Phosphatase Troponin I High Sens 5.1 D Total Protein Albumin Triglycerides Cholesterol LDL Cholesterol, Calc HDL Cholesterol Lipase TSH Urine Color Urine Appearance Urine pH Ur Specific [place] Urine Protein Urine Glucose (UA) Urine Ketones Urine Blood Urine Nitrite Ur Leukocyte Esterase Urine RBC Urine WBC Ur Squamous Epith Cells Urine Bacteria Hyaline Casts 03/03/24 03/03/24 03/03/24 05:08 06:36 11:35 MCV 94.0 MCH 31.9 MCHC 33.9 RDW 12.6 Plt Count 220 MPV 11.8 Immature Gran % (Auto) 0.4 Neut % (Auto) 61.2 Lymph % (Auto) 30.3 [place] % (Auto) 7.3 Eos % (Auto) 0.7 Baso % (Auto) 0.1 Lymph # (Auto) 2.8 [place] # (Auto) 0.7 Eos # (Auto) 0.1 Baso # (Auto) 0.0 Abs Immat Gran (auto) 0.04 H Absolute Neuts (auto) 5.7 Absolute Nucleated RBC 0.000 Nucleated RBC % (auto) 0.0 PT Whole Blood PT INR Whole Blood INR APTT Anion Gap 15 Estim Creat Clear Calc 65.1 Estimated GFR > 60 POC Glucose 148 H 236 H Random Glucose 165 H Calcium 9.6 Magnesium Total Bilirubin Direct Bilirubin AST ALT Alkaline Phosphatase Troponin I High Sens Total Protein Albumin Triglycerides Cholesterol LDL Cholesterol, Calc HDL Cholesterol Lipase TSH Urine Color Urine Appearance Urine pH Ur Specific [place] Urine Protein Urine Glucose (UA) Urine Ketones Urine Blood Urine Nitrite Ur Leukocyte Esterase Urine RBC Urine WBC Ur Squamous Epith Cells Urine Bacteria Hyaline Casts Assessment and Plan (1) Facial droop: Status: Acute Plan d2 73yo F with DM2 with neuropathy, HTN, HLD, fibromyalgia, mood disorder presenting with leg pain, found to have L-sided facial droop last known normal 2d prior to presentation L-sided facial droop - no acute CVA on CT, will obtain MRI, Neuro consultation, continue aspirin/atorvastatin, [employer] consulted + swallowing WFL so will advance diet HLD - statin depression with SI - sitter; continue escitalopram + mirtazapine; CARE Team evaluation once medically cleared DM2 with hyperglycemia + neuropathy - basal-bolus insulin, gabapentin VTE ppx - enoxaparin dispo - TBD, needs Psych evaluation prior to d/c In my clinical judgment, the patient requires continued inpatient hospitalization for the following reasons: CVA workup Total time managing care of this patient today: 35 minutes. Quality Stroke Does the patient have a stroke diagnosis?: No VTE Prior VTE?: No VTE Risk Level:: Medical - moderate - high VTE Device Contraindication: Treatment Not Indicated VTE Drug Contraindication: N/A - Med Ordered
[2024-03-03] MEDS: LORazepam 2 MG/ML VIAL 0.5 MG IVPUSH (12:25)
--- NOTE | 2024-03-03 13:25 | P.CNNE_ITS ---
History of Present Illness Data of Consult Service Date: 03/03/24 Primary Care Provider: Shine Mcmanus MD HPI Reason for consult: Facial droop 73 years old woman with underlying history of diabetes came to hospital with weakness and facial droop. She was noted to be with uncontrolled diabetes. There was no history of any recent rash or cold or flu-like illness. Review of Systems 2 Review of Systems: No recent cold or flu-like illness PMFSH Past Medical History Medical History Polanco's palsy Elevated hemoglobin A1c Left arm weakness Numbness and tingling in left arm Left shoulder pain Thoracic outlet syndrome Neck pain Left-sided weakness Colon cancer screening Microscopic hematuria Lung cancer Vitamin D deficiency Depression Fibromyalgia Obesity (BMI 30-39.9) Diabetic polyneuropathy associated with type 2 diabetes mellitus Hypertension detention (current) use of insulin Dyslipidemia Diabetes type 2, uncontrolled Family History Family History Father Osteoporosis Mother Stroke Cancer Surgical History Surgical History H/O: hysterectomy Social History Social History Household Members: None Housing: Apartment Do you presently have visiting nurse or other home services: Yes (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) Unable to assess alcohol history related to: Unable to respond Alcohol intake: former Patient Tobacco Use Status: Never used Tobacco Substance Use Type: Marijuana Advance Directives Date on File: 11/17/23 service: No Sexual orientation: Straight/Heterosexual Meds Allergies Allergy/AdvReac Type Severity Reaction Status Date / Time COVID-19 vacc, bv (Orig, Allergy Severe Swelling Verified 03/02/24 12:59 Omicron BA.4/5) (Pfizer) [From Pfizer COVID Bival(12y up)(PF)] homosalate [From Coppertone] Allergy Intermediate RASH, itchy Verified 03/02/24 12:59 octinoxate [From Coppertone] Allergy Intermediate RASH, itchy Verified 03/02/24 12:59 oxybenzone [From Coppertone] Allergy Intermediate RASH, itchy Verified 03/02/24 12:59 pioglitazone Allergy Unknown Unknown Verified 03/02/24 12:59 pollen extracts Allergy Unknown Unknown Verified 03/02/24 12:59 diovan Allergy Unknown rash Uncoded 05/15/23 03:09 Active Medications: Current Medications Acetaminophen (Acetaminophen 325 Mg Tablet) 650 mg PO Q6H PRN PRN Reason: Pain, Mild (Pain Scale 1-3), fever or headache Last Admin: 03/03/24 09:44 Dose: 650 mg Albuterol Sulfate (Albuterol Sulfate 90 Mcg 8 Gm Inhaler) 2 puff INHALE Q4H PRN PRN Reason: Shortness Of Breath Or Wheezing Ascorbic Acid (Ascorbic Acid 500 Mg Tablet) 500 mg PO DAILY [facility] Last Admin: 03/03/24 09:45 Dose: 500 mg Aspirin (Aspirin Enteric Coated 81 Mg Tablet.Dr) 81 mg PO DAILY [facility] Last Admin: 03/03/24 10:30 Dose: 81 mg Atorvastatin Calcium (Atorvastatin Calcium 20 Mg Tablet) 20 mg PO BEDTIME [facility] Calcium Carbonate (Calcium Carbonate 750 Mg Tab.Chew) 750 mg PO Q4H PRN PRN Reason: Heartburn Clonazepam (Clonazepam 0.5 Mg Tablet) 0.5 mg PO DAILY PRN PRN Reason: Anxiety Enoxaparin Sodium (Enoxaparin Sodium 40 Mg/0.4 Ml Syringe) 40 mg SUBCUT Q24H [facility] Last Admin: 03/02/24 21:02 Dose: 40 mg Escitalopram Oxalate (Escitalopram Oxalate 10 Mg Tablet) 10 mg PO DAILY [facility] Last Admin: 03/03/24 09:45 Dose: 10 mg Gabapentin (Gabapentin 300 Mg Capsule) 300 mg PO TID [facility] Last Admin: 03/03/24 09:44 Dose: 300 mg Glucose (Glucose Gel 15 Gm Gel..Gram.) 15 gm PO Q15M PRN; Protocol PRN Reason: per Hypoglycemia Standing Ord. Dextrose (D10) 250 mls @ 750 mls/hr IV Q15M PRN; Protocol PRN Reason: per Hypoglycemia Standing Ord. Insulin Glargine (Insulin Glargine,Hum.Rec.Anlog 100 Unit/Ml 10 Ml Vial) 30 unit SUBCUT BEDTIME [facility] Insulin Human Lispro (Insulin Lispro 100 Unit/Ml 3 Ml Vial) 0 unit SUBCUT Q6H [facility]; Protocol Last Admin: 03/03/24 06:43 Dose: Not Given Loratadine (Loratadine 10 Mg Tablet) 10 mg PO DAILY [facility] Last Admin: 03/03/24 09:44 Dose: 10 mg Magnesium Hydroxide (Milk Of Magnesia 30 Ml Oral.Susp) 30 ml PO DAILY PRN PRN Reason: Constipation Melatonin (Melatonin 3 Mg Tablet) 6 mg PO BEDTIME PRN PRN Reason: Insomnia Mirtazapine (Mirtazapine 15 Mg Tablet) 15 mg PO BEDTIME [facility] Morphine Sulfate (Morphine Sulfate 2 Mg/Ml Cartridge) 2 mg IVPUSH Q4H PRN; Protocol PRN Reason: Pain, Severe (Pain Scale 7-10) Last Admin: 03/03/24 04:17 Dose: 2 mg Ondansetron HCl (Ondansetron Hcl 4 Mg/2 Ml Vial) 4 mg IVPUSH Q8H PRN PRN Reason: Nausea and Vomiting Last Admin: 03/03/24 04:20 Dose: 4 mg Sodium Chloride (0.9 % Sodium Chloride Flush 3 Ml Syringe) 3 ml IVFLUSH QSHIFT [facility] Last Admin: 03/03/24 09:45 Dose: 3 ml Topiramate (Topiramate 25 Mg Tablet) 50 mg PO BID [facility] Last Admin: 03/03/24 09:44 Dose: 50 mg Vitamin D (Cholecalciferol (Vitamin D3) 25 Mcg Tablet) 50 mcg PO DAILY [facility] Last Admin: 03/03/24 09:44 Dose: 25 mcg Home Medications ?Medication ?Instructions ?Recorded ?Confirmed ?Last Taken ?Type cetirizine 10 mg tablet 10 mg PO DAILY 12/09/22 03/03/24 02/20/24 History insulin aspart U-100 100 unit/mL 1 sliding scale dose subcut TIDAC 12/09/22 03/03/24 02/20/24 History (3 mL) subcutaneous pen (Novolog FlexPen U-100 Insulin aspart) insulin glargine 100 unit/mL (3 30 unit subcut BEDTIME 12/09/22 03/03/24 02/20/24 History mL) subcutaneous pen (Lantus Solostar U-100 Insulin) acetaminophen 650 mg 650 mg PO Q6H PRN pain 12/16/22 03/03/24 Unknown History tablet,extended release mirtazapine 15 mg tablet 15 mg PO BEDTIME 12/16/22 03/03/24 02/20/24 History albuterol sulfate 90 mcg/actuation 2 puff inhalation Q4H PRN 02/13/23 03/03/24 Unknown History aerosol inhaler Shortness Of Breath Or Wheezing citalopram 20 mg tablet 20 mg PO DAILY 02/13/23 03/03/24 02/20/24 History gabapentin 300 mg capsule 300 mg PO BID-TID 02/13/23 03/03/24 02/20/24 History atorvastatin 20 mg tablet 20 mg PO BEDTIME 11/06/23 03/03/24 02/20/24 History tirzepatide 2.5 mg/0.5 mL 2.5 mg subcut WE 11/06/23 03/03/24 02/17/24 History subcutaneous pen injector (Felipe) Physical Exam 2 Vital Signs: Vital Signs: Last Vital Signs Temp 97.6 F 03/03/24 11:38 Pulse 78 03/03/24 11:38 Resp 20 03/03/24 11:38 BP 145/87 H 03/03/24 11:38 Pulse Ox 98 03/03/24 11:38 O2 Del Method Room Air 03/03/24 11:38 BMI result Body Mass Index 33.3 Neuro: Other: Alert and awake with decreased facial expression blinking. Moderate generalize bradykinesia. Moderate cogwheeling rigidity. Otherwise no obvious focal weakness. Results Labs 03/03/24 05:08 03/03/24 05:08 Labs: Short CBC 03/03/24 Range/Units 05:08 WBC 9.4 (4.8-10.8) X10*3/uL Hgb 13.2 (12.0-16.0) g/dl Hct 38.9 (37.0-47.0) % Plt Count 220 (160-400) X10*3/uL BMP 03/03/24 05:08 Sodium 142 Potassium 3.7 Chloride 109 H Carbon Dioxide 22 BUN 11 Creatinine 0.85 Calcium 9.6 Liver Function 03/02/24 Range/Units 12:47 Total Bilirubin 0.4 (0.0-1.0) mg/dL Direct Bilirubin 0.2 (0.0-0.5) mg/dL AST 21 (5-31) U/L ALT 25 (0-31) U/L Alkaline Phosphatase 75 (39-117) U/L Albumin 4.1 (3.5-5.0) g/dL Urine 03/02/24 Range/Units 14:02 Urine Color Yellow Urine Appearance Clear Urine pH 8.0 (5.0-9.0) Ur Specific [place] >= 1.030 H (1.005-1.025) Urine Protein Negative (Neg-Trace) mg/dL Urine Glucose (UA) 500 H (Negative) mg/dL Head CT did not reveal any significant abnormality. 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 I recommend challenging her with carbidopa levodopa 2500 3 times a day to see if she would improve. Procedures Date of Service Date of Service: 03/03/24
[2024-03-03 16:13] LABS: Glucose, Whole Blood 219 mg/dL (60-115)
[2024-03-03] MEDS: cefTRIAXone sodium 1 GM in 0.9 % Sodium Chloride 50 ML IV (16:13)
[2024-03-03] MEDS: Mirtazapine 15 MG TABLET PO (21:08)
[2024-03-03] MEDS: Enoxaparin Sodium 40 MG/0.4 ML SYRINGE SUBCUT (21:08)
[2024-03-03] MEDS: Atorvastatin Calcium 20 MG TABLET PO (21:08)
[2024-03-03] MEDS: Insulin Glargine,Hum.rec.anlog 100 UNIT/ML 10 ML VIAL 30 UNIT SUBCUT (21:09)
[2024-03-03 22:24] LABS: Glucose, Whole Blood 236 mg/dL (60-115)
[2024-03-04] MEDS: 0.9 % Sodium Chloride Flush 3 ML SYRINGE IVFLUSH ×4 (01:56→20:18)
[2024-03-04 04:00] VITALS: BP 148/74; PULSE 88; RESP 20; TEMP 36.1; O2SAT 97
[2024-03-04 05:57] LABS: Glucose, Whole Blood 173 mg/dL (60-115)
[2024-03-04 08:00] VITALS: BP 110/53; PULSE 75; RESP 18; TEMP 36.6; O2SAT 97
[2024-03-04 08:38] LABS: Glucose, Whole Blood 187 mg/dL (60-115)
[2024-03-04] MEDS: Insulin Lispro 100 UNIT/ML 3 ML VIAL SUBCUT ×3 (10:57→20:18)
[2024-03-04] MEDS: Ascorbic Acid 500 MG TABLET PO (10:57)
[2024-03-04] MEDS: Gabapentin 300 MG CAPSULE PO ×3 (10:57→20:17)
[2024-03-04] MEDS: Loratadine 10 MG TABLET PO (10:58)
[2024-03-04] MEDS: Escitalopram Oxalate 10 MG TABLET PO (10:58)
[2024-03-04] MEDS: Cholecalciferol (Vitamin D3) 25 MCG TABLET 50 MCG PO (10:58)
[2024-03-04] MEDS: Topiramate 25 MG TABLET 50 MG PO ×2 (10:58→20:17)
[2024-03-04] MEDS: Aspirin Enteric Coated 81 MG TABLET.DR PO (10:58)
[2024-03-04 11:10] LABS: Glucose, Whole Blood 214 mg/dL (60-115)
[2024-03-04 11:45] VITALS: BP 123/63; PULSE 84; RESP 18; TEMP 36.2; O2SAT 99
[2024-03-04] MEDS: Carbidopa/Levodopa 25/100 TABLET 1 TAB PO ×2 (12:29→18:35)
[2024-03-04 14:11] VITALS: BP 123/63
--- NOTE | 2024-03-04 14:39 | P.F2F_ITS ---
Service Date Service Date: 03/04/24 Encounter Date of encounter: 03/04/24 Reasons for Services Signs and symptoms assessed: imbalance; weakness Reason for chcf: neurological assessment, medication management, medication treatment and teach disease management Reason for physical therapy: home safety and mobility, therapeutic exercises, gait/transfer training, assess need for DME, ADL training and energy conservation MD Overseeing Care: Shine Mcmanus Homebound: Leaving the home is medically contraindicated at this time without the asist of a device and/or another person due th the listed conditions above and below. Reason homebound: unsteady gait / fall risk and weakness related to hospital stay Certification: Based on the above findings, I certify that this patient is confined to the home and needs intermittent chcf care, physical therapy and/or speech therapy, or continues to need occupational therapy. The patient is under my care, and I have initiated the establishment of the plan of care. The patient will be followed by a physician who will periodically review the plan of care. Time Spent With Patient Time: Total time managing care of this patient today ____ minutes.
--- NOTE | 2024-03-04 14:44 | PM.DS ---
DS: Providers Provider Date of Service: 03/04/24 Date of admission: 03/02/24 19:39 Date of discharge: 03/04/24 Primary care physician: Shine Mcmanus MD Consults: 03/02/24 19:39 Consult to Neurology Routine Consulting Provider: [facility] Reason for consultation: CVA 03/04/24 09:37 Consult to Care Team Routine Comment: Reason for consultation: SI/depression, Parkinsonism?, ?charla psych placement DS: Diagnosis Discharge Diagnosis (1) Parkinsonism: Status: Acute (2) Urinary tract infection: Status: Inactive (3) Major depressive disorder: Status: Acute DS: Summary Hospital Course Hospital Course: From the history and physical by the admitting hospitalist, Ghislaine Tavarez MD 03/02/24: This is a 73-year-old female with pertinent history of insulin-dependent diabetes mellitus with neuropathy, mood disorder, hypertension, mixed hyperlipidemia, fibromyalgia who initially presented to the emergency department for evaluation of leg pain but was found to have a facial droop. As per patient's aide, on the morning of presentation, patient was found to have facial droop and incoherent speech. Last known normal was 2 days prior to presentation. Patient states she has been falling and has had poor p.o. intake in the last 2 days. Also complaining of neuropathic leg pain. No fever, chills, chest discomfort, palpitations, shortness of breath, abdominal pain, changes in urinary or bowel habits. It also mentioned that patient said she wanted to 1 day prior to presentation. In the emergency department, CT head and CTA without any acute abnormality. Neurology was consulted who requested admission and obtaining MRI in a.m. 73yo F with DM2 with neuropathy, HTN, HLD, fibromyalgia, and mood disorder presenting with leg pain and admitted with concern for L-sided facial droop from CVA. She was admitted to the telemetry unit with 1:1 sitter out of concern for depression with passive suicidal thoughts. Her usual aspirin and statin were continued. No CVA seen on CT or MRI. Neurology was consulted and felt her presentation was most consistent with Parkinson's disease, given masked facies, generalized bradykinesia, and cogwheeling. A trial of carbidopa-levodopa was started. No focal weakness was appreciated. She was evaluated by the CARE Team and denied any suicidal ideation. She was discharged home with VNA services for neurologic assessment and PT due to impaired gait and balance and mobility. She should follow up with Neurology in 2 weeks and Primary Care in 1-2 weeks. She should continue to see her psychiatrist at [facility]. She was diagnosed with an E. coli UTI and got 1 dose of ceftriaxone; discharged on 6 days of cefuroxime. Time Attestation Discharge Coordination Time (in mins): 40 Quality: Safe Use of Opioids Does Pt have an Active Cancer Diagnosis on the Problem List?: No Quality: Stroke Does the patient have a stroke diagnosis?: No Physical Exam Vital Signs: Vital Signs: Last Vital Signs Temp 97.1 F 03/04/24 11:45 Pulse 84 03/04/24 11:45 Resp 18 03/04/24 11:45 BP 123/63 03/04/24 14:11 Pulse Ox 99 03/04/24 11:45 O2 Del Method Room Air 03/04/24 11:45 BMI result Body Mass Index 33.3 Gen: in no acute distress HEENT: sclera anicteric, moist mucus membranes Neck: supple Lungs: clear to auscultation bilaterally Heart: regular rate and rhythm, no murmurs Abd: soft, non-tender, non-distended Ext: no edema Skin: warm/well-perfused Neuro: alert and oriented x3, masked facies, bradykinesia, mild coghweeling L>R, no tremor, no focal weakness Psych: appropriate affect DS: Data Data Completed and Pending Completed studies during hospitalization [Text1]: Laboratory Results WBC 9.4 X10*3/uL (4.8-10.8) 03/03/24 05:08 RBC 4.14 X10*6/uL (4.20-5.50) L 03/03/24 05:08 Hgb 13.2 g/dl (12.0-16.0) 03/03/24 05:08 Hct 38.9 % (37.0-47.0) 03/03/24 05:08 MCV 94.0 fL (80.0-98.0) 03/03/24 05:08 MCH 31.9 pg (27.0-33.0) 03/03/24 05:08 MCHC 33.9 g/dl (31.0-35.0) 03/03/24 05:08 RDW 12.6 % (11.0-16.0) 03/03/24 05:08 Plt Count 220 X10*3/uL (160-400) 03/03/24 05:08 MPV 11.8 fL (9.4-12.3) 03/03/24 05:08 Immature Gran % (Auto) 0.4 % (0.0-0.4) 03/03/24 05:08 Neut % (Auto) 61.2 % (45-73) 03/03/24 05:08 Lymph % (Auto) 30.3 % (20-40) 03/03/24 05:08 [place] % (Auto) 7.3 % (2-11) 03/03/24 05:08 Eos % (Auto) 0.7 % (0-4) 03/03/24 05:08 Baso % (Auto) 0.1 % (0-2) 03/03/24 05:08 Lymph # (Auto) 2.8 X10*3/uL (1.2-4.9) 03/03/24 05:08 [place] # (Auto) 0.7 X10*3/uL (0.1-1.2) 03/03/24 05:08 Eos # (Auto) 0.1 X10*3/uL (0.0-0.4) 03/03/24 05:08 Baso # (Auto) 0.0 X10*3/uL (0.0-0.2) 03/03/24 05:08 Abs Immat Gran (auto) 0.04 X10*3/uL (0.00-0.03) H 03/03/24 05:08 Absolute Neuts (auto) 5.7 x10*3/uL (2.0-8.3) 03/03/24 05:08 Absolute Nucleated RBC 0.000 X10*3/uL (0.0-0.012) 03/03/24 05:08 Nucleated RBC % (auto) 0.0 /100WBC (0.0-0.2) 03/03/24 05:08 PT 12.0 SEC (11.1-13.3) 03/02/24 12:47 Whole Blood PT 11.2 sec (11.1-13.5) 03/02/24 12:47 INR 1.0 (0.9-1.1) 03/02/24 12:47 Whole Blood INR 0.9 (0.9-1.1) 03/02/24 12:47 APTT 26.1 SEC (26.0-36.8) 03/02/24 12:47 Sodium 142 mmol/L (135-145) 03/03/24 05:08 Potassium 3.7 mmol/L (3.3-5.1) 03/03/24 05:08 Chloride 109 mmol/L (96-108) H 03/03/24 05:08 Carbon Dioxide 22 mmol/L (22-29) 03/03/24 05:08 Anion Gap 15 (12-20) 03/03/24 05:08 BUN 11 mg/dL (9-16) 03/03/24 05:08 Creatinine 0.85 mg/dL (0.5-1.4) 03/03/24 05:08 Estim Creat Clear Calc 65.1 03/03/24 05:08 Estimated GFR > 60 03/03/24 05:08 POC Glucose 214 mg/dL (60-115) H 03/04/24 11:03 Random Glucose 165 mg/dL (60-115) H 03/03/24 05:08 Calcium 9.6 mg/dL (8.4-10.2) 03/03/24 05:08 Magnesium 1.9 mg/dL (1.6-2.6) 03/02/24 12:47 Total Bilirubin 0.4 mg/dL (0.0-1.0) 03/02/24 12:47 Direct Bilirubin 0.2 mg/dL (0.0-0.5) 03/02/24 12:47 AST 21 U/L (5-31) 03/02/24 12:47 ALT 25 U/L (0-31) 03/02/24 12:47 Alkaline Phosphatase 75 U/L (39-117) 03/02/24 12:47 Troponin I High Sens 5.1 ng/L (<3.5-17.0) D 03/02/24 20:07 Total Protein 8.0 g/dL (6.5-8.0) 03/02/24 12:47 Albumin 4.1 g/dL (3.5-5.0) 03/02/24 12:47 Triglycerides 50 mg/dL (<150) 03/02/24 12:47 Cholesterol 130 mg/dL (<200) 03/02/24 12:47 LDL Cholesterol, Calc 52 mg/dL (<100) 03/02/24 12:47 HDL Cholesterol 68 mg/dL (>40) 03/02/24 12:47 Lipase 40 U/L (8-78) 03/02/24 12:47 TSH 1.63 uIU/mL (0.32-4.0) 03/02/24 12:47 Urine Color Yellow 03/02/24 14:02 Urine Appearance Clear 03/02/24 14:02 Urine pH 8.0 (5.0-9.0) 03/02/24 14:02 Ur Specific [place] >= 1.030 (1.005-1.025) H 03/02/24 14:02 Urine Protein Negative mg/dL (Neg-Trace) 03/02/24 14:02 Urine Glucose (UA) 500 mg/dL (Negative) H 03/02/24 14:02 Urine Ketones Negative mg/dL (Negative) 03/02/24 14:02 Urine Blood Negative (Negative) 03/02/24 14:02 Urine Nitrite Positive (Negative) H 03/02/24 14:02 Ur Leukocyte Esterase Trace (Negative) H 03/02/24 14:02 Urine RBC 0-2 /HPF (0-2) 03/02/24 14:02 Urine WBC 0-5 /HPF (0-5) 03/02/24 14:02 Ur Squamous Epith Cells 0-2 /HPF (0-2) 03/02/24 14:02 Urine Bacteria 4+ (None Seen) 03/02/24 14:02 Hyaline Casts 0-2 /LPF (0-2) 03/02/24 14:[address] 03/02/24 12:41 IMPRESSION: 1. Unchanged minimal age related cerebral atrophy, bilateral frontal periventricular ischemic white matter disease compatible with microangiopathy.. 2. No intracranial hemorrhage or skull fracture is seen. 3. No evidence of space occupying lesion could be found. 4. The current plain CT scan of the brain shows no diagnostic evidence of acute cerebral infarction. This critical result was discussed with Dr. Sukhwinder Parra on 03/02/2024 at 1312 hours and it was ascertained that the content and urgency of this report was understood at the time of direct communication. Electronically signed by: Abdirashid Swan MD 03/02/2024 01:14 PM EDT RP Head/Neck CTA 03/02/24 12:51 IMPRESSION: 1. CTA of the head and neck without proximal occlusion or flow-limiting stenosis. 2. The brain parenchyma is better evaluated on concurrent CT of the head. Within the limitations of this exam, there is no evidence of new intracranial hemorrhage or abnormal mass effect. Mild underlying microangiopathy. 3. Moderate multilevel degenerative spondyloarthropathy of the cervical spine. Electronically signed by: Socrates Gutierrez DO 03/02/2024 01:25 PM EDT RP Abdomen/Pelvis CT 03/02/24 17:08 IMPRESSION: No acute abnormality CT scan abdomen pelvis. Fleischner guidelines were followed. Electronically signed by: Moustapha White MD 03/02/2024 06:45 PM EDT RP Brain MRI 03/03/24 12:55 IMPRESSION: There are scattered chronic small vessel ischemic changes within the periventricular white matter. Otherwise unremarkable examination. No evidence of acute territorial infarct or hemorrhage. Electronically signed by: Kris Khalil MD 03/03/2024 02:09 PM EDT RP Discharge Plan Discharge Anticipated Discharge Date/Time: 03/04/24 14:40 Patient Disposition: Home Health Service Discharge Diagnosis: Parkinson disease urinary tract infection Referrals: Shine Mcmanus MD [Primary Care Provider] - 1 Week Rox Elkins MD [Physician] - 2 Weeks Discharge Medications: New carbidopa-levodopa 25-100 mg Tablet 1 tab PO TID Qty: 90 0RF cefuroxime axetil 500 mg tablet 500 mg PO BID Qty: 12 0RF Continued clonazepam 0.5 mg tablet 0.5 mg PO DAILY PRN (Reason: Anxiety) 30 Days Qty: 30 0RF (DME) FreeStyle Lite Strips Strip See Rx Instructions .ROUTE .MEDSUPPLY Qty: 150 11RF Rx Instructions: 4 times a day aspirin 81 mg tablet,delayed release (DR/EC) 81 mg PO DAILY 30 Days Qty: 30 0RF ascorbic acid (vitamin C) [Vitamin C] 500 mg Tablet 500 mg PO DAILY 30 Days Qty: 30 0RF metformin 500 mg tablet extended release 24 hr 500 mg PO BID Qty: 60 0RF topiramate 50 mg tablet 50 mg PO BID 30 Days Qty: 60 0RF cholecalciferol (vitamin D3) 50 mcg (2,000 unit) capsule 50 mcg PO DAILY 30 Days Qty: 30 0RF (DME) pen needle, diabetic 32 gauge x 5/32 needle See Rx Instructions subcut .MEDSUPPLY Qty: 50 0RF Rx Instructions: As directed (DME) lancets [TRUEplus Lancets] 33 gauge misc See Rx Instructions .ROUTE .MEDSUPPLY Qty: 100 0RF Rx Instructions: As directed test blood sugar 4 times a day cetirizine 10 mg tablet 10 mg PO DAILY insulin aspart U-100 [Novolog FlexPen U-100 Insulin] 100 unit/mL (3 mL) insulin pen 1 sliding scale dose subcut TIDAC insulin glargine [Lantus Solostar U-100 Insulin] 100 unit/mL (3 mL) insulin pen 30 unit subcut BEDTIME citalopram 20 mg tablet 20 mg PO DAILY albuterol sulfate 90 mcg/actuation Hfa Aerosol Inhaler 2 puff INHALATION Q4H PRN (Reason: Shortness Of Breath Or Wheezing) gabapentin 300 mg capsule 300 mg PO BID-TID atorvastatin 20 mg tablet 20 mg PO BEDTIME Mounjaro 2.5 mg/0.5 mL pen injector 2.5 mg subcut WE acetaminophen 650 mg tablet extended release 650 mg PO Q6H PRN (Reason: pain) mirtazapine 15 mg tablet 15 mg PO BEDTIME Discharge Orders: Discharge Order (Routine); Ordered 03/04/24 Ordered By: Krystal Camacho Diet: Diabetic diet Activity on Discharge: As tolerated Stand Alone Forms: Patient Portal Discharge page Print Language: Chinese Care Plan Goals: neurologic health Health Concerns: Parkinson disease urinary tract infection Plan of Treatment: trial of carbidopa-levodopa 25-100 mg 3x a day and follow up with Neurology at [facility] in 2 weeks take cefuroxime 500 mg twice daily for 6 days home with VNA services Please follow up with your primary care doctor within 1 week. Return to the hospital if you experience recurrent or worsening symptoms. Assessment: See Discharge Summary.
--- NOTE | 2024-03-04 15:34 | MHC.CM.PN ---
Pt. has been medically cleared for DC, she will go home via family transport and have services from [facility].
[2024-03-04] MEDS: cefTRIAXone sodium 1 GM in 0.9 % Sodium Chloride 50 ML IV (15:46)
[2024-03-04] MEDS: Morphine Sulfate 2 MG/ML CARTRIDGE IVPUSH (15:51)
--- NOTE | 2024-03-04 17:00 | MHC.SL.SWA ---
Risk of Aspiration Due to: Neurological Condition Dysphasia Diet Status: NO CHANGE Liquid Consistency and Strategies for Safe Swallow: Liquid Intake Recommendation: Thin Liquid Intake Strategies: Unrestricted Solid Food Consistency: Dietary Recommendations: Regular Additional Modifications to Solid Foods: Alternate liquids and solids, small bites/sips. Oral Medication Intake: Whole with Liquid Please contact the pharmacy regarding appropriate crushable or liquid drug formulations that are available whenever modified delivery is recommended. Compensatory Strategies and Precautions to be Taken for Safe Swallow: Sitting Upright (90 deg) Avoid Specific Foods Supervision While Eating and Drinking for Safe Swallow: Intermittent Supervision Foods to Avoid: Too large pieces of food. Swallowing Recommended Treatments: Recommendation for Speech: Inpatient Speech Therapy Comment: Recommend pt continue w/ REGULAR solids and THIN liquids w/pills WHOLE in PUREE. Pt may require some assistance w/ tray set up d/t left arm deficit. No concern for dysarthria or dysphagia at this time. Recommend 1 f/u w/ COUNTY ATTORNEY to ensure regular solids is appropriate given physical limitations. Counselor [employer] Clinican/Clinical Fellow: No Supervisory Statement: I have reviewed and agree with the student/clinical fellow's documentation: N/A Speech Language Pathologist: Teresa Ramirez M.A., CCC-COUNTY ATTORNEY
[2024-03-04 18:40] LABS: Glucose, Whole Blood 341 mg/dL (60-115)
[2024-03-04 19:23] VITALS: BP 137/63; PULSE 82; RESP 20; TEMP 36.6; O2SAT 100
[2024-03-04 19:59] LABS: Glucose, Whole Blood 384 mg/dL (60-115)
[2024-03-04] MEDS: Acetaminophen 325 MG TABLET 650 MG PO (20:17)
[2024-03-04] MEDS: Enoxaparin Sodium 40 MG/0.4 ML SYRINGE SUBCUT (20:17)
[2024-03-04] MEDS: Atorvastatin Calcium 20 MG TABLET PO (20:17)
[2024-03-04] MEDS: Mirtazapine 15 MG TABLET PO (20:18)
[2024-03-04] MEDS: Insulin Glargine,Hum.rec.anlog 100 UNIT/ML 10 ML VIAL 30 UNIT SUBCUT (20:18)
[2024-03-04 23:28] VITALS: BP 127/62; PULSE 66; RESP 20; TEMP 36.4; O2SAT 97
[2024-03-05 03:15] VITALS: BP 140/63; PULSE 73; RESP 20; TEMP 36.4; O2SAT 99
[2024-03-05 07:30] LABS: Glucose, Whole Blood 150 mg/dL (60-115)
[2024-03-05 07:38] VITALS: BP 118/56; PULSE 70; RESP 18; TEMP 36.4; O2SAT 97
[2024-03-05] MEDS: Carbidopa/Levodopa 25/100 TABLET 1 TAB PO (08:26)
[2024-03-05] MEDS: 0.9 % Sodium Chloride Flush 3 ML SYRINGE IVFLUSH (08:26)
[2024-03-05] MEDS: Ascorbic Acid 500 MG TABLET PO (08:26)
[2024-03-05] MEDS: Loratadine 10 MG TABLET PO (08:26)
[2024-03-05] MEDS: Cholecalciferol (Vitamin D3) 25 MCG TABLET 50 MCG PO (08:26)
[2024-03-05] MEDS: Aspirin Enteric Coated 81 MG TABLET.DR PO (08:26)
[2024-03-05] MEDS: Topiramate 25 MG TABLET 50 MG PO (08:26)
[2024-03-05] MEDS: Escitalopram Oxalate 10 MG TABLET PO (08:26)
[2024-03-05] MEDS: Gabapentin 300 MG CAPSULE PO (08:26)
--- NOTE | 2024-03-05 10:27 | PC.NURSE ---
Called healthcare proxy for arrange for transportation home. pt is currently medically cleared. No answer at healthcare proxy number, left message with callback number.
--- NOTE | 2024-03-05 10:56 | MHC.CM.PN ---
[facility] was unable to transport to home yesterday. SHAHRAM spoke with YULY/Susan @ [phone], with the assist of a Telephonic Integrated Logistics Programs Director. Susan will be here at 11:15 AM to provide transport to home. [facility] has been notified of today's dc.Last IMM addressed on 03/03/2024.
[2024-03-05 11:49] LABS: Glucose, Whole Blood 313 mg/dL (60-115)
[2024-03-05] MEDS: Insulin Lispro 100 UNIT/ML 3 ML VIAL SUBCUT (11:56)
== END 2024-03-05 12:10 | disposition home health service (06) | DRG 57 ==
LOC: HO.ED 19:49 → HO.EDOVER 19:59 → HO.IMC 03-03 07:38
PROVIDERS: Family Medicine; Admitting Provider Student in an Organized Health Care Education/Training Program; Emergency Provider Student in an Organized Health Care Education/Training Program; PCP Internal Medicine; Visit Provider Nurse Practitioner Acute Care
DX: G20.C Parkinsonism, unspecified (principal); N39.0 Urinary tract infection, site not specified; R45.851 Suicidal ideations; R29.810 Facial weakness; E11.42 Type 2 diabetes mellitus with diabetic polyneuropathy; E78.2 Mixed hyperlipidemia; F32.9 Major depressive disorder, single episode, unspecified; E11.65 Type 2 diabetes mellitus with hyperglycemia; I10 Essential (primary) hypertension; B96.20 Unspecified Escherichia coli [E. coli] as the cause of diseases classified elsewhere; Z79.82 Long term (current) use of aspirin; Z79.4 Long term (current) use of insulin; Z79.84 Long term (current) use of oral hypoglycemic drugs; Z79.899 Other long term (current) drug therapy
CPT/HCPCS: 36415; 70450; 70496; 70498; 70551; 74176; 80048; 80061; 80076; 81001; 82947; 83690; 83735; 84443; 84484; 85025; 85610; 85730; 87086; 87088; 87186; 92526; 92610; 93005; 97161; 99285; J0696; J1200; J1650; J2060; J2270; J2405; S9485

== ENCOUNTER → 2024-03-02 19:39 | Outpatient (BNV) | payer OTHER, SELFPAY | PROVIDERS: Admitting Provider Student in an Organized Health Care Education/Training Program; Emergency Provider Student in an Organized Health Care Education/Training Program; PCP Internal Medicine; Visit Provider Student in an Organized Health Care Education/Training Program | DX: G20.C Parkinsonism, unspecified (principal); N39.0 Urinary tract infection, site not specified; F32.9 Major depressive disorder, single episode, unspecified | CPT/HCPCS: 99222; 99232; 99239; G0180 ==

== ENCOUNTER → 2024-03-02 19:39 | Outpatient (BNV) | payer OTHER, SELFPAY | PROVIDERS: Admitting Provider Student in an Organized Health Care Education/Training Program; Emergency Provider Student in an Organized Health Care Education/Training Program; PCP Internal Medicine; Visit Provider Psychiatry & Neurology Neurology | DX: G20.C Parkinsonism, unspecified (principal) | CPT/HCPCS: 99222 ==

== ENCOUNTER 2024-05-25 14:00 | Inpatient (IN) | payer OTHER, SELFPAY ==
--- NOTE | ~2024-05-25 | XR_ITS ---
EXAMINATION: XR CHEST CLINICAL INFORMATION: stroke COMPARISON: Chest radiograph dated November 06, 2023. TECHNIQUE: Frontal view of the chest was obtained. FINDINGS: The heart is normal in size. The lungs are clear. No pleural effusion. No pneumothorax. No acute osseous abnormality. XR/XR chest 1V IMPRESSION: Stable appearance of heart and lungs. No active disease. Electronically signed by: Garrett Gama DO 05/25/2024 03:43 PM EST
--- NOTE | ~2024-05-25 | CT_ITS ---
EXAMINATION: CT brain. CLINICAL INFORMATION: Cerebrovascular disease. Unresponsive COMPARISON: Stroke CT scan of brain on 05/25/2024 TECHNIQUE: Multiple axial images were obtained from base of skull to the vertex with IV contrast enhancement. Coronal and sagittal images of the brain were reconstructed from the axial image data. This CT examination was performed using dose optimization techniques as appropriate, variously including the following: *Automated exposure control *Adjustment of mA and/or kV according to patient size (this includes techniques or standardized protocols for targeted exams where dose is matched to indication/reason for exam; i.e. extremities or head) *Use of iterative reconstruction technique DLP: 1671 mGy-cm FINDINGS: Ventricles, sulci and cisterns are dilated. There is no midline shift, no abnormal intra- or extra- axial fluid accumulation. [place] and white matter differentiation is normal. Postcontrast images show normal enhancement of major intracerebral blood vessels. No enhancing intracranial mass lesion or abnormal meningeal enhancement is seen. Bone window images show no evidence of skull fracture. CT/CT angio head neck STROKE IMPRESSION: 1. Unchanged age related cerebral atrophy. 2. No intracranial hemorrhage or skull fracture is seen. 3. No evidence of space occupying or enhancing intracranial mass lesion could be found. 4. The current plain CT scan of the brain shows no diagnostic evidence of acute cerebral infarction. EXAMINATION: CT angiogram of brain. CLINICAL INFORMATION: Cerebral vascular disease. COMPARISON: None available. TECHNIQUE: CT angiogram of the brain was performed C7 following the administration of 70 mL of Omnipaque 350. Coronal and sagittal images were reconstructed from axial image data. 3-dimensional volumetric maximum intensity projection images in multiple planes were reconstructed on an independent workstation. This was performed under concurrent direct supervision and monitoring by radiologist. Reformatted maximum intensity projection angiographic images of the brain were reconstructed on an independent workstation. This CT examination was performed using dose optimization techniques as appropriate, variously including the following: *Automated exposure control *Adjustment of mA and/or kV according to patient size (this includes techniques or standardized protocols for targeted exams where dose is matched to indication/reason for exam; i.e. extremities or head) *Use of iterative reconstruction technique DLP: 1671 mGy-cm FINDINGS: There is normal visualization of bilateral anterior, middle and posterior cerebral arteries, internal carotid arteries, basilar artery and terminal portions of bilateral vertebral arteries. Anterior communicating artery is normal. Bilateral posterior communicating arteries are normal. Bilateral internal carotid siphons are smoothly patent. In C7 segment terminus of the right internal carotid siphon, a posterior saccular aneurysm measuring 1.5 mm in AP diameter, 2.1 mm in vertical height (previously 1.5 x 2.0 mm) is seen. Timing of the bolus allows assessment of the major dural venous sinuses. The major cerebral venous sinuses show normal contrast filling. IMPRESSION: 1. Unchanged posterior C7 segment right internal carotid siphon 2 mm saccular aneurysm. 2. No focal cerebral arterial lesion or significant arterial stenosis is seen. EXAMINATION: CT angiogram of neck. CLINICAL INFORMATION: Cerebral vascular disease, evaluate carotid stenosis. COMPARISON: CT angiogram of the head and neck on 03/02/2024 TECHNIQUE: Contrast enhanced CT angiogram of the neck and superior mediastinum was performed following the administration of 70 mL of Omnipaque 350. 3-dimensional volumetric maximum intensity projection images in multiple planes were reconstructed on an independent workstation. This was performed under concurrent direct supervision and monitoring by radiologist. Reformatted maximum intensity projection angiographic images of the neck and superior mediastinum were reconstructed on an independent workstation. Magnified images of carotid bifurcations were reconstructed. This CT examination was performed using dose optimization techniques as appropriate, variously including the following: *Automated exposure control *Adjustment of mA and/or kV according to patient size (this includes techniques or standardized protocols for targeted exams where dose is matched to indication/reason for exam; i.e. extremities or head) *Use of iterative reconstruction technique DLP: 1671 mGy-cm STENOSIS MEASUREMENT: Degree of stenosis was measured and calculated based on NASCET criteria. Carotid stenosis reference using NASCET criteria: % stenosis = (1 - narrowest ICA diameter/diameter of distal cervical ICA) x 100. Mild - < 50% stenosis. Moderate - 50-69% stenosis. Severe - 70-94% stenosis. Near occlusion - 95-99% stenosis. Occluded - 100% stenosis. FINDINGS: RIGHT SIDE: Right internal carotid artery: Smoothly patent. Right external carotid artery: Smoothly patent. Right common carotid artery: Smoothly patent. Right vertebral artery: Smoothly patent and dominant. LEFT SIDE: Left internal carotid artery: Smoothly patent. Left external carotid artery: Smoothly patent. Left common carotid artery: Smoothly patent. Left vertebral artery: Smoothly patent. At the superior mediastinum, the visualized right innominate artery, bilateral subclavian arteries and common carotid arteries are smoothly patent starting from the origin at the aortic arch. IMPRESSION: 1. Unchanged Normal CT angiogram of the neck. No evidence of significant carotid stenosis. 2. Patent bilateral vertebral arteries with right-sided dominance. 3. Findings are communicated to Jayant Fletcher M.D. on 05/25/2024 at 1519 hours. Electronically signed by: Abdirashid Swan MD 05/25/2024 03:23 PM [facility]
--- NOTE | ~2024-05-25 | CT_ITS ---
EXAMINATION: CT HEAD WITHOUT CONTRAST (STROKE PROTOCOL) CLINICAL INFORMATION: Stroke protocol. Unresponsive. COMPARISON: Head CTs dating between March 02, 2024 and October 21, 2006. TECHNIQUE: Contiguous axial imaging was performed from the skull base to vertex without intravenous administration of contrast. This CT examination was performed using dose optimization techniques as appropriate, variously including the following: *Automated exposure control *Adjustment of mA and/or kV according to patient size (this includes techniques or standardized protocols for targeted exams where dose is matched to indication/reason for exam; i.e. extremities or head) *Use of iterative reconstruction technique DLP: 918 mGy-cm FINDINGS: No intracranial hemorrhage, large infarction, or mass lesion is seen. Diffuse, age-appropriate cortical atrophy and chronic bilateral periventricular white matter ischemic change. No extra-axial collection is appreciated. The ventricles are normal in size and configuration without evidence of hydrocephalus. The visualized paranasal sinuses and mastoid air cells are clear. CT/CT head for STROKE IMPRESSION: No acute intracranial finding. Dr. Fletcher was directly informed of the findings by telephone at approximately 2:38 PM on May 25, 2024. Electronically signed by: Hector Vazquez MD 05/25/2024 02:39 PM [facility]
--- NOTE | ~2024-05-25 | MR_ITS ---
EXAMINATION: MR BRAIN WITHOUT CONTRAST CLINICAL INFORMATION: Left weakness, aphasia COMPARISON: MRI brain on 03/03/2024 TECHNIQUE: MRI of the brain was obtained using routine sequences without contrast. FINDINGS: No acute intracranial hemorrhage or infarct. Scattered and confluent periventricular and deep white matter T2/FLAIR hyperintensities, nonspecific however commonly seen with small vessel ischemic disease. Diffuse prominence of the sulci with associated ex vacuo dilation of the ventricles compatible with global cerebral atrophy. No midline shift or hydrocephalus. No acute extra-axial fluid collections. The osseous structures are unremarkable. The pituitary gland, pineal gland and remaining midline structures are unremarkable. No orbital pathology. The paranasal sinuses and mastoid air cells are clear. MR/MR head/brain wo con IMPRESSION: 1. No acute intracranial abnormalities. 2. Global cerebral atrophy and chronic microangiopathy. Electronically signed by: Karolina Corado MD 05/25/2024 06:46 PM [facility]
--- NOTE | 2024-05-25 14:06 | ECG_ITS ---
Test Reason : STROKEN SYMPTOMS Blood Pressure : / mmHG Vent. Rate : 086 BPM Atrial Rate : 086 BPM P-R Int : 120 ms QRS Dur : 086 ms QT Int : 312 ms P-R-T Axes : 052 004 029 degrees QTc Int : 373 ms Poor data quality, interpretation may be adversely affected Normal sinus rhythm Nonspecific T wave abnormality Abnormal ECG When compared with ECG of 02-MAR-2024 13:49, QT has shortened Referred By: Jayant Fletcher Electronically Signed By:MEGAN AVALOS MD
--- NOTE | 2024-05-25 14:12 | ED_ITS ---
HPI - Altered Mental Status General Chief Complaint: Stroke Stated Complaint: Stroke Alert, unresponsive, L drift, LNW ~1330 Time Seen by Provider: 05/25/24 14:05 Source: patient, family ( PROTOTYPE MACHINIST), EMS, old records reviewed and per diem interpreter Mode of arrival: EMS Limitations: no limitations History of Present Illness ED Provider: DR. Fletcher HPI narrative: came in for evaluation of change mental status since 13:15. patient is a 73-year-old female past medical history significant for insulin-dependent DM with neuropathy, mood disorder, HTN, hyperlipidemia, fibromyalgia, Parkinson's, CVA with left-sided weakness, speaks slowly at baseline patient went out with her PROTOTYPE MACHINIST this morning was acting normal until she got home around 13:15 patient when had mental status change, not fully responsive, did have right gaze. On arrival to the ED patient is slightly more responsive and coherent, unable to fully screen for stroke at this point because patient incoherent also with history of CVA with left-sided weakness, however able to move her right side more than the left side. No gaze. Patient is known to have history of diabetes, blood sugar by EMS was in 150s. Related Data Home Medications ?Medication ?Instructions ?Recorded ?Confirmed cetirizine 10 mg tablet 10 mg PO DAILY 12/09/22 05/25/24 insulin aspart U-100 100 unit/mL 1 sliding scale dose subcut TIDAC 12/09/22 05/25/24 (3 mL) subcutaneous pen (Novolog FlexPen U-100 Insulin aspart) insulin glargine 100 unit/mL (3 30 unit subcut BEDTIME 12/09/22 05/25/24 mL) subcutaneous pen (Lantus Solostar U-100 Insulin) acetaminophen 650 mg 650 mg PO Q6H PRN pain 12/16/22 05/25/24 tablet,extended release mirtazapine 15 mg tablet 15 mg PO BEDTIME 12/16/22 05/25/24 albuterol sulfate 90 mcg/actuation 2 puff inhalation Q4H PRN 02/13/23 05/25/24 aerosol inhaler Shortness Of Breath Or Wheezing citalopram 20 mg tablet 20 mg PO DAILY 02/13/23 05/25/24 gabapentin 300 mg capsule 300 mg PO TID 02/13/23 05/25/24 atorvastatin 20 mg tablet 20 mg PO BEDTIME 11/06/23 05/25/24 tirzepatide 2.5 mg/0.5 mL 2.5 mg subcut TU 11/06/23 05/25/24 subcutaneous pen injector (Felipe) amlodipine 2.5 mg tablet 5 mg PO DAILY 05/25/24 05/25/24 Previous Rx's ?Medication ?Instructions ?Recorded ascorbic acid (vitamin C) 500 mg 500 mg PO DAILY 30 days #30 tabs 11/19/22 tablet (Vitamin C) aspirin 81 mg tablet,delayed 81 mg PO DAILY 30 days #30 tabs 11/19/22 release blood sugar diagnostic (FreeStyle #150 ea 11/19/22 Lite Strips) cholecalciferol (vitamin D3) 50 50 mcg PO DAILY 30 days #30 caps 11/19/22 mcg (2,000 unit) capsule clonazepam 0.5 mg tablet 0.5 mg PO DAILY PRN Anxiety 30 11/19/22 days #30 tabs lancets 33 gauge (TRUEplus Lancets) #100 ea 11/19/22 metformin 500 mg tablet,extended 500 mg PO BID #60 tabs 11/19/22 release 24 hr pen needle, diabetic 32 gauge x #50 ea 11/19/22 topiramate 50 mg tablet 50 mg PO BID 30 days #60 tabs 11/19/22 carbidopa 25 mg-levodopa 100 mg 1 tab PO TID #90 tabs 03/04/24 tablet Allergies Allergy/AdvReac Type Severity Reaction Status Date / Time COVID-19 vacc, bv (Orig, Allergy Severe Swelling Verified 05/25/24 14:58 Omicron BA.4/5) (Pfizer) [From Pfizer COVID Bival(12y up)()] homosalate [From Coppertone] Allergy Intermediate RASH, itchy Verified 05/25/24 14:58 octinoxate [From Coppertone] Allergy Intermediate RASH, itchy Verified 05/25/24 14:58 oxybenzone [From Coppertone] Allergy Intermediate RASH, itchy Verified 05/25/24 14:58 pioglitazone Allergy Unknown Unknown Verified 05/25/24 14:58 pollen extracts Allergy Unknown Unknown Verified 05/25/24 14:58 diovan Allergy Unknown rash Uncoded 05/15/23 03:09 Review of Systems 2 Review of Systems: all other systems are reviewed and are negative Constitutional: Reports as per HPI and Reports no additional constitutional complaints Eyes: Reports as per HPI and Reports no additional eye complaints Reports system reviewed and no additional complaints, except as documented Cardiovascular: Reports as per HPI and Reports no additional cardiovascular complaints Respiratory: Reports as per HPI and Reports no additional respiratory complaints Gastrointestinal: Reports as per HPI and Reports no additional gastrointestinal complaints Genitourinary: Reports no additional female genitourinary complaints Musculoskeletal: Reports no additional musculoskeletal complaints Skin/Breast: Reports system reviewed and no additional complaints, except as docu Psychiatric: Reports no additional psychiatric complaints Endocrine: Reports no additional endocrine complaints Hematologic/Lymphatic: Reports no additional hematologic/lymphatic complaints Allergic/Immunologic: Reports no additional allergic/immunologic complaints Reports system reviewed and no additional complaints, except as documented and Reports Abnormal speech present [facility] Past Medical History Medical History Polanco's palsy Elevated hemoglobin A1c Left arm weakness Numbness and tingling in left arm Left shoulder pain Thoracic outlet syndrome Neck pain Left-sided weakness Colon cancer screening Microscopic hematuria Lung cancer Vitamin D deficiency Depression Fibromyalgia Obesity (BMI 30-39.9) Diabetic polyneuropathy associated with type 2 diabetes mellitus Hypertension [facility] (current) use of insulin Dyslipidemia Diabetes type 2, uncontrolled Surgical History H/O: hysterectomy Family History Family History Father Osteoporosis Mother Stroke Cancer Social History Social History Household Members: None Housing: Apartment Do you presently have visiting nurse or other home services: Yes Unable to assess alcohol history related to: Unable to respond Alcohol intake: former Patient Tobacco Use Status: Never used Tobacco Smoked in Last 30 Days: No e-Cigarette/Vaping Use: Never Used Use of substances other than those prescribed or required for medical reasons: No Substance Use Type: Marijuana Advance Directives: Yes Advance Directives on File: Yes Advance Directives Date on File: 11/17/23 service: No Sexual orientation: Straight/Heterosexual Physical Exam ED Vital Signs: Vital Signs - 24 hr 05/25/24 14:54 05/25/24 15:02 05/25/24 15:37 Temperature 98.0 F 97.0 F Pulse Rate 89 88 82 Respiratory Rate 16 14 16 Blood Pressure 142/79 H 139/65 Pulse Oximetry 100 99 96 Oxygen Delivery Method Room Air Room Air Room Air BMI result Body Mass Index 33.3 Vital signs have been reviewed and appear to be correct. Blood pressure elevated. Heart rate normal. Respiratory rate normal. Temperature normal. Oxygen saturation normal. Appearance: Alert. No acute distress. Head: Normal external exam. Normocephalic. Atraumatic. No Montoya signs noted. No raccoon eyes noted Eyes: PERRLA. EOMI. Conjunctiva and sclera normal. Eyelids normal. ENT: TM's Normal. Pharynx normal. Uvula midline. Moist mucous membranes. No trismus noted. No drooling noted. No muffled voice noted. Neck: Normal inspection. Neck supple. FROM. No adenopathy. Thyroid Normal. No meningeal signs. No neck mass noted. CVS: Normal heart rate and rhythm. Heart sound normal. No murmurs noted. Pulses normal throughout. Respiratory: No respiratory distress. Painless inspiration. Breath sounds normal. No wheezes/rales/rhonchi noted. Chest nontender. No accessory muscle usage noted or decreased air movement noted. Abdomen: Soft and nontender. Bowel sounds normal in all 4 quadrants. No distention noted. No organomegaly noted. No visible injury noted. Back: No CVA tenderness. Full range of motion noted. Skin: Skin warm and dry. Normal skin color. Normal skin turgor. No rashes/lesions/lacerations noted. Extremities: No lower extremity edema. Extremities exhibit normal range of motion. Extremities nontender. Neuro: limited due to incoherent and disorientation. Able to move right upper and lower extremities, no facial droop, no gaze, able to move left side better than the right side. NIH Stroke Scale Internal: Initial- Upon Arrival Time: 14:21 Level of Consciousness: Alert Level of Consciousness Questions: Answers both questions correctly Level of Consciousness Commands: Performs both tasks correctly Best Gaze: Normal Visual: No visual loss Facial Palsy: Minor paralyis Motor Arm (Right): No drift Motor Arm (Left): Some effort against gravity Motor Leg (Right): No drift Motor Leg (Left): Some effort against gravity Limb Ataxia: Absent Sensory: Normal Best Language: Mild to moderate aphasia Dysarthia: Normal Extinction and Inattention: No abnormality Score: 6 Course Reevaluation(s) Reevaluation #1: a 73-year-old female history of CVA and left hemiparesis presented with change mental status with more pronounced left hemiparesis and Slower speech, according to the PROTOTYPE MACHINIST patient's mentation is improving, CT/ CT angiogram are unremarkable for acute large vessel occlusion, case was discussed with Dr. Torres, patient is not a candidate for thrombolysis patient is improving and most of the patient's symptoms seemed to be pre-existing secondary to previous stroke. Time: 16:00 Medications Administered Generic Name Dose Route Start Last Admin Trade Name Freq PRN Reason Stop Dose Admin Insulin Human Lispro 0 unit 05/25/24 16:30 05/25/24 16:44 Insulin Lispro 100 Unit/Ml 3 Ml Vial SUBCUT Not Given QIDAS [facility] Protocol Lorazepam 1 mg 05/25/24 17:42 05/25/24 18:04 Lorazepam 2 Mg/Ml Vial IVPUSH 1 mg ONCE PRN Administration mri Discontinued Medications Generic Name Dose Route Start Last Admin Trade Name Freq PRN Reason Stop Dose Admin Sodium Chloride 1,000 mls @ 999 mls/hr 05/25/24 14:05 05/25/24 16:44 Ns IV 05/25/24 15:05 Infused .Q1H1M ONE Infusion Iohexol 70 ml 05/25/24 14:41 05/25/24 14:42 Iohexol 350 Mg/Ml 100 Ml Infus..Btl IV 05/25/24 14:42 70 ml ONCE ONE Administration Medical Decision Making Differential Diagnosis Differential Diagnoses: The differential diagnosis associated with the presentation includes ( Ischemic CVA, hemorrhagic CVA, large vessel occlusion, electrolyte derangement, hypoglycemia, severe anemia.) Admission/Observation Consideration of admission/observation: Escalation of care including admission/observation considered Lab Data MDM Lab Attestation statement: I reviewed the patient's lab results. 05/25/24 15:32 05/25/24 15:32 Labs: Lab Results 05/25/24 05/25/24 05/25/24 Range/Units 14:07 15:13 15:32 WBC 8.4 (4.8-10.8) X10*3/uL RBC 3.95 L (4.20-5.50) X10*6/uL Hgb 12.7 (12.0-16.0) g/dl Hct 37.3 (37.0-47.0) % MCV 94.4 (80.0-98.0) fL MCH 32.2 (27.0-33.0) pg MCHC 34.0 (31.0-35.0) g/dl RDW 12.6 (11.0-16.0) % Plt Count 202 (160-400) X10*3/uL MPV 11.4 (9.4-12.3) fL Immature Gran % (Auto) 0.2 (0.0-0.4) % Neut % (Auto) 65.7 (45-73) % Lymph % (Auto) 28.4 (20-40) % [place] % (Auto) 4.9 (2-11) % Eos % (Auto) 0.7 (0-4) % Baso % (Auto) 0.1 (0-2) % Lymph # (Auto) 2.4 (1.2-4.9) X10*3/uL [place] # (Auto) 0.4 (0.1-1.2) X10*3/uL Eos # (Auto) 0.1 (0.0-0.4) X10*3/uL Baso # (Auto) 0.0 (0.0-0.2) X10*3/uL Abs Immat Gran (auto) 0.02 (0.00-0.03) X10*3/uL Absolute Neuts (auto) 5.5 (2.0-8.3) x10*3/uL Absolute Nucleated RBC 0.000 (0.0-0.012) X10*3/uL Nucleated RBC % (auto) 0.0 (0.0-0.2) /100WBC PT 12.3 (10.9-12.4) SEC Whole Blood PT 11.2 (11.1-13.5) sec INR 1.1 (0.9-1.1) Whole Blood INR 0.9 (0.9-1.1) Sodium 139 (135-145) mmol/L Potassium 4.2 (3.3-5.1) mmol/L Chloride 109 H (96-108) mmol/L Carbon Dioxide 21 L (22-29) mmol/L Anion Gap 13 (12-20) BUN 17 H (9-16) mg/dL Creatinine 1.00 (0.5-1.4) mg/dL Estim Creat Clear Calc 53.4 Estimated GFR 55 POC Glucose 128 H (60-115) mg/dL Random Glucose 125 H (60-115) mg/dL Calcium 9.5 (8.4-10.2) mg/dL Total Bilirubin 0.3 (0.0-1.0) mg/dL Direct Bilirubin 0.1 (0.0-0.5) mg/dL AST 26 (5-31) U/L ALT 6 (0-31) U/L Alkaline Phosphatase 99 (39-117) U/L Troponin I High Sens 3.7 (<3.5-17.0) ng/L B-Natriuretic Peptide 28 (<100) pg/mL Total Protein 6.9 (6.5-8.0) g/dL Albumin 3.7 (3.5-5.0) g/dL Lipase 20 (8-78) U/L Urine Color Urine Appearance Urine pH (5.0-9.0) Ur Specific Sylvester (1.005-1.025) Urine Protein (Neg-Trace) mg/dL Urine Glucose (UA) (Negative) mg/dL Urine Ketones (Negative) mg/dL Urine Blood (Negative) Urine Nitrite (Negative) Ur Leukocyte Esterase (Negative) Urine RBC (0-2) /HPF Urine WBC (0-5) /HPF Ur Squamous Epith Cells (0-2) /HPF Urine Bacteria (None Seen) Hyaline Casts (0-2) /LPF Influenza Type A (PCR) (Negative) Influenza Type B (PCR) (Negative) RSV RNA Qual (PCR) (Negative) SARS-CoV-2 RNA (RT-PCR) (Negative) 05/25/24 05/25/24 Range/Units 15:33 15:48 WBC (4.8-10.8) X10*3/uL RBC (4.20-5.50) X10*6/uL Hgb (12.0-16.0) g/dl Hct (37.0-47.0) % MCV (80.0-98.0) fL MCH (27.0-33.0) pg MCHC (31.0-35.0) g/dl RDW (11.0-16.0) % Plt Count (160-400) X10*3/uL MPV (9.4-12.3) fL Immature Gran % (Auto) (0.0-0.4) % Neut % (Auto) (45-73) % Lymph % (Auto) (20-40) % [place] % (Auto) (2-11) % Eos % (Auto) (0-4) % Baso % (Auto) (0-2) % Lymph # (Auto) (1.2-4.9) X10*3/uL [place] # (Auto) (0.1-1.2) X10*3/uL Eos # (Auto) (0.0-0.4) X10*3/uL Baso # (Auto) (0.0-0.2) X10*3/uL Abs Immat Gran (auto) (0.00-0.03) X10*3/uL Absolute Neuts (auto) (2.0-8.3) x10*3/uL Absolute Nucleated RBC (0.0-0.012) X10*3/uL Nucleated RBC % (auto) (0.0-0.2) /100WBC PT (10.9-12.4) SEC Whole Blood PT (11.1-13.5) sec INR (0.9-1.1) Whole Blood INR (0.9-1.1) Sodium (135-145) mmol/L Potassium (3.3-5.1) mmol/L Chloride (96-108) mmol/L Carbon Dioxide (22-29) mmol/L Anion Gap (12-20) BUN (9-16) mg/dL Creatinine (0.5-1.4) mg/dL Estim Creat Clear Calc Estimated GFR POC Glucose (60-115) mg/dL Random Glucose (60-115) mg/dL Calcium (8.4-10.2) mg/dL Total Bilirubin (0.0-1.0) mg/dL Direct Bilirubin (0.0-0.5) mg/dL AST (5-31) U/L ALT (0-31) U/L Alkaline Phosphatase (39-117) U/L Troponin I High Sens (<3.5-17.0) ng/L B-Natriuretic Peptide (<100) pg/mL Total Protein (6.5-8.0) g/dL Albumin (3.5-5.0) g/dL Lipase (8-78) U/L Urine Color Yellow Urine Appearance Clear Urine pH 5.5 (5.0-9.0) Ur Specific Sylvester 1.020 (1.005-1.025) Urine Protein Negative (Neg-Trace) mg/dL Urine Glucose (UA) Negative (Negative) mg/dL Urine Ketones Negative (Negative) mg/dL Urine Blood Large (3+) H (Negative) Urine Nitrite Negative (Negative) Ur Leukocyte Esterase Trace H (Negative) Urine RBC >20 H (0-2) /HPF Urine WBC 0-5 (0-5) /HPF Ur Squamous Epith Cells 3-5 (0-2) /HPF Urine Bacteria None Seen (None Seen) Hyaline Casts 0-2 (0-2) /LPF Influenza Type A (PCR) NEGATIVE (Negative) Influenza Type B (PCR) NEGATIVE (Negative) RSV RNA Qual (PCR) NEGATIVE (Negative) SARS-CoV-2 RNA (RT-PCR) NEGATIVE (Negative) Independent Interpretation I performed an independent interpretation of an: Plain X-Ray ( Stable appearance of heart and lug no active disease.) and CT Scan ( CT/CT angio head and neck:1. Unchanged Normal CT angiogram of the neck. No evidence of significant carotid stenosis. 2. Patent bilateral vertebral arteries with right-sided dominance. 3. Findings are communicated to Jayant Fletcher M.D. on 05/25/2024 at 1519 hours.) Radiology Impression Discussion of test interpretation with radiology: I have reviewed the radiologist's reading. Discharge Plan Discharge Clinical Impression: Altered mental status Patient Disposition: Admitted As Inpatient
[2024-05-25 14:14] LABS: Prothrombin Time Whole Bld POC 11.2 sec (11.1-13.5); ~PT, ~INR - Anti Coag Clinic 0.9 (0.9-1.1)
[2024-05-25 14:15] LABS: Glucose, Whole Blood 128 mg/dL (60-115)
[2024-05-25] MEDS: iohexoL 350 MG/ML 100 ML INFUS..BTL 70 ML IV (14:42)
[2024-05-25 14:54] VITALS: BP 137/77; BP 142/79; PULSE 89; PULSE 92; RESP 16; TEMP 36.7; O2SAT 100; O2SAT 98; BMI 33.3
--- NOTE | 2024-05-25 14:59 | PC.NURSE ---
Pt arrives via EMS aas stroke alert. Pt noted with left sided weakness and left sided gaze however left sided gaze appears to have improved at this time since arrival as pt is talking and answering questions appropriately. On exam pt is more weaker on left side with a left sided facial droop. Pt c/o 02/12 headache On arrival pt brought straight to CT scan at [address] scan down, this RN and pt to main CT scanner on tele at scanned there at approx 1426
[2024-05-25 15:02] VITALS: PULSE 88; RESP 14; O2SAT 99
[2024-05-25] MEDS: 0.9 % Sodium Chloride 1,000 ML 999 ML IV (15:13)
--- NOTE | 2024-05-25 15:13 | PC.NURSE ---
Pt also now c/o difficulty swallowing, swallow eval failed. SPORTS MANAGEMENT INTERN at bedside and confirms pt has baseline left sided weakness from prior CVA
[2024-05-25 15:36] LABS: B Type Natriuretic Peptide 28 pg/mL (<100)
[2024-05-25 15:37] VITALS: BP 139/65; PULSE 82; RESP 16; TEMP 36.1; O2SAT 96
[2024-05-25 15:38] LABS: MANUAL DIFF FLAG NO
[2024-05-25 15:40] LABS: Basophils Percent Auto 0.1 % (0-2); Eosinophils Absolute Auto 0.1 X10*3/uL (0.0-0.4); Eosinophils Percent Auto 0.7 % (0-4); Hematocrit 37.3 % (37.0-47.0); Hemoglobin 12.7 g/dl (12.0-16.0); Imm Gran Abs Auto 0.02 X10*3/uL (0.00-0.03); Imm Gran Pct Auto 0.2 % (0.0-0.4); Lymphocytes Absolute Auto 2.4 X10*3/uL (1.2-4.9); Lymphocytes Percent Auto 28.4 % (20-40); Mean Corpuscular Hemoglobin 32.2 pg (27.0-33.0); Mean Corpuscular Volume 94.4 fL (80.0-98.0); Mean Platelet Volume 11.4 fL (9.4-12.3); Monocytes Absolute Auto 0.4 X10*3/uL (0.1-1.2); Monocytes Percent Auto 4.9 % (2-11); Neutrophils Absolute Auto 5.5 x10*3/uL (2.0-8.3); Neutrophils Percent Auto 65.7 % (45-73); Platelet Count 202 X10*3/uL (160-400); Red Blood Count 3.95 X10*6/uL (4.20-5.50); Red Cell Distribution Width 12.6 % (11.0-16.0); White Blood Count 8.4 X10*3/uL (4.8-10.8)
--- NOTE | 2024-05-25 15:41 | MHC.EDTECH ---
This pct assumed care of Patient at 1500 ,vitals taken ,blood drawn and sent to lab,urine sample collected and sent to lab .
[2024-05-25 15:45] LABS: INTERNATIONAL NORM RATIO 1.1 (0.9-1.1); Prothrombin Time 12.3 SEC (10.9-12.4)
[2024-05-25 15:53] LABS: Appearance Urine Clear; Color Urine Yellow; Glucose Urine UA Negative (Negative); Leukocyte Esterase Urine Trace (Negative); Nitrite Urine Negative (Negative); PH 5.5 (5.0-9.0); UMIC TRIGGER UACC YES; Urine Blood Large (3+) (Negative); Urine Ketones Negative (Negative); Urine Protein Negative (Neg-Trace)
[2024-05-25 15:56] LABS: Alanine Aminotransferase 6 U/L (0-31); Albumin Level 3.7 g/dL (3.5-5.0); Alkaline Phosphatase 99 U/L (39-117); Anion Gap 13 (12-20); Aspartate Amino Transferase 26 U/L (5-31); Bilirubin Direct 0.1 mg/dL (0.0-0.5); Bilirubin Total 0.3 mg/dL (0.0-1.0); Blood Urea Nitrogen 17 mg/dL (9-16); Calcium 9.5 mg/dL (8.4-10.2); Carbon Dioxide 21 mmol/L (22-29); Chloride 109 mmol/L (96-108); Creatinine Clr Calc Pharmacy 53.4; Estimated Glomerular Filt Rate 55; Glucose Random 125 mg/dL (60-115); Lipase 20 U/L (8-78); Potassium 4.2 mmol/L (3.3-5.1); Sodium 139 mmol/L (135-145); Total Protein 6.9 g/dL (6.5-8.0)
[2024-05-25 16:02] LABS: Troponin-I High Sensitivity 3.7 ng/L (<3.5-17.0)
[2024-05-25 16:12] LABS: Bacteria Urine None Seen (None Seen); Hyaline Casts Urine 0-2 /LPF (0-2); RBC Urine >20 /HPF (0-2); WBC Urine 0-5 /HPF (0-5)
[2024-05-25 16:18] LABS: Influenza A PCR NEGATIVE (Negative); Influenza B PCR NEGATIVE (Negative); Resp Syncy Virus RNA Qual PCR NEGATIVE (Negative); SARS COV2 PCR INHOUSE NEGATIVE (Negative)
--- NOTE | 2024-05-25 16:25 | P.HPHOSP_ITS ---
History of Present Illness Date of Service: 05/25/24 Chief Complaint: aphasia, weakness 73F PMH left bells palsy, dm, mood disorder, hld, parkinsons, htn, presented with left-sided weakness. Patient states she has been having headaches and weakness for about 2 days. At 1st said weakness on left side, now saying bilateral, said worsen while out today with [employer], then when she got home appeared confused minimally responsive and coherent speech so was brought to the ER as stroke alert. CTA head and neck was negative. Review of Systems 2 Review of Systems: Yes all other systems are reviewed and are negative [facility] Medical History Polanco's palsy Elevated hemoglobin A1c Left arm weakness Numbness and tingling in left arm Left shoulder pain Thoracic outlet syndrome Neck pain Left-sided weakness Colon cancer screening Microscopic hematuria Lung cancer Vitamin D deficiency Depression Fibromyalgia Obesity (BMI 30-39.9) Diabetic polyneuropathy associated with type 2 diabetes mellitus Hypertension rn long term care (current) use of insulin Dyslipidemia Diabetes type 2, uncontrolled Family History Father Osteoporosis Mother Stroke Cancer Surgical History H/O: hysterectomy Social History Household Members: None Housing: Apartment Do you presently have visiting nurse or other home services: Yes Unable to assess alcohol history related to: Unable to respond Alcohol intake: former Patient Tobacco Use Status: Never used Tobacco Smoked in Last 30 Days: No e-Cigarette/Vaping Use: Never Used Use of substances other than those prescribed or required for medical reasons: No Substance Use Type: Marijuana Advance Directives: Yes Advance Directives on File: Yes Advance Directives Date on File: 11/17/23 service: No Sexual orientation: Straight/Heterosexual Meds Allergies Allergy/AdvReac Type Severity Reaction Status Date / Time COVID-19 vacc, bv (Orig, Allergy Severe Swelling Verified 05/25/24 14:58 Omicron BA.4/5) (Pfizer) [From Pfizer COVID Bival(12y up)(PF)] homosalate [From Coppertone] Allergy Intermediate RASH, itchy Verified 05/25/24 14:58 octinoxate [From Coppertone] Allergy Intermediate RASH, itchy Verified 05/25/24 14:58 oxybenzone [From Coppertone] Allergy Intermediate RASH, itchy Verified 05/25/24 14:58 pioglitazone Allergy Unknown Unknown Verified 05/25/24 14:58 pollen extracts Allergy Unknown Unknown Verified 05/25/24 14:58 diovan Allergy Unknown rash Uncoded 05/15/23 03:09 Active Medications: Current Medications Acetaminophen (Acetaminophen 325 Mg Tablet) 650 mg PO Q6H PRN PRN Reason: Pain, Mild (Pain Scale 1-3), fever or headache Calcium Carbonate (Calcium Carbonate 750 Mg Tab.Chew) 750 mg PO Q4H PRN PRN Reason: Heartburn Magnesium Hydroxide (Milk Of Magnesia 30 Ml Oral.Susp) 30 ml PO DAILY PRN PRN Reason: Constipation Melatonin (Melatonin 3 Mg Tablet) 6 mg PO BEDTIME PRN PRN Reason: Insomnia Home Medications ?Medication ?Instructions ?Recorded ?Confirmed ?Last Taken ?Type cetirizine 10 mg tablet 10 mg PO DAILY 12/09/22 03/03/24 02/20/24 History insulin aspart U-100 100 unit/mL 1 sliding scale dose subcut TIDAC 12/09/22 03/03/24 02/20/24 History (3 mL) subcutaneous pen (Novolog FlexPen U-100 Insulin aspart) insulin glargine 100 unit/mL (3 30 unit subcut BEDTIME 12/09/22 03/03/24 02/20/24 History mL) subcutaneous pen (Lantus Solostar U-100 Insulin) acetaminophen 650 mg 650 mg PO Q6H PRN pain 12/16/22 03/03/24 Unknown History tablet,extended release mirtazapine 15 mg tablet 15 mg PO BEDTIME 12/16/22 03/03/24 02/20/24 History albuterol sulfate 90 mcg/actuation 2 puff inhalation Q4H PRN 02/13/23 03/03/24 Unknown History aerosol inhaler Shortness Of Breath Or Wheezing citalopram 20 mg tablet 20 mg PO DAILY 02/13/23 03/03/24 02/20/24 History gabapentin 300 mg capsule 300 mg PO BID-TID 02/13/23 03/03/24 02/20/24 History atorvastatin 20 mg tablet 20 mg PO BEDTIME 11/06/23 03/03/24 02/20/24 History tirzepatide 2.5 mg/0.5 mL 2.5 mg subcut WE 11/06/23 03/03/24 02/17/24 History subcutaneous pen injector (Felipe) Physical Exam 2 Vital Signs and Narrative: Vital Signs: Last Vital Signs Temp 97.0 F 05/25/24 15:37 Pulse 82 05/25/24 15:37 Resp 16 05/25/24 15:37 BP 139/65 05/25/24 15:37 Pulse Ox 96 05/25/24 15:37 O2 Del Method Room Air 05/25/24 15:37 BMI result Body Mass Index 33.3 General: AO X 3, no acute distress Resp: CTA bilateral, no accessory muscles used CVS: S1,S2,RRR GI: soft, non tender, non distended Neuro: Slow speech, left facial droop, ? Left-sided weakness, does not appear to be giving full effort Results Labs 05/25/24 15:32 05/25/24 15:32 Labs: Laboratory Results - last 24 hr 05/25/24 05/25/24 05/25/24 14:07 15:13 15:32 MCV 94.4 MCH 32.2 MCHC 34.0 RDW 12.6 Plt Count 202 MPV 11.4 Immature Gran % (Auto) 0.2 Neut % (Auto) 65.7 Lymph % (Auto) 28.4 [place] % (Auto) 4.9 Eos % (Auto) 0.7 Baso % (Auto) 0.1 Lymph # (Auto) 2.4 [place] # (Auto) 0.4 Eos # (Auto) 0.1 Baso # (Auto) 0.0 Abs Immat Gran (auto) 0.02 Absolute Neuts (auto) 5.5 Absolute Nucleated RBC 0.000 Nucleated RBC % (auto) 0.0 PT 12.3 Whole Blood PT 11.2 INR 1.1 Whole Blood INR 0.9 Anion Gap 13 Estim Creat Clear Calc 53.4 Estimated GFR 55 POC Glucose 128 H Random Glucose 125 H Calcium 9.5 Total Bilirubin 0.3 Direct Bilirubin 0.1 AST 26 ALT 6 Alkaline Phosphatase 99 Troponin I High Sens 3.7 B-Natriuretic Peptide 28 Total Protein 6.9 Albumin 3.7 Lipase 20 Urine Color Urine Appearance Urine pH Ur Specific [place] Urine Protein Urine Glucose (UA) Urine Ketones Urine Blood Urine Nitrite Ur Leukocyte Esterase Urine RBC Urine WBC Ur Squamous Epith Cells Urine Bacteria Hyaline Casts Influenza Type A (PCR) Influenza Type B (PCR) RSV RNA Qual (PCR) SARS-CoV-2 RNA (RT-PCR) 05/25/24 05/25/24 15:33 15:48 MCV MCH MCHC RDW Plt Count MPV Immature Gran % (Auto) Neut % (Auto) Lymph % (Auto) [place] % (Auto) Eos % (Auto) Baso % (Auto) Lymph # (Auto) [place] # (Auto) Eos # (Auto) Baso # (Auto) Abs Immat Gran (auto) Absolute Neuts (auto) Absolute Nucleated RBC Nucleated RBC % (auto) PT Whole Blood PT INR Whole Blood INR Anion Gap Estim Creat Clear Calc Estimated GFR POC Glucose Random Glucose Calcium Total Bilirubin Direct Bilirubin AST ALT Alkaline Phosphatase Troponin I High Sens B-Natriuretic Peptide Total Protein Albumin Lipase Urine Color Yellow Urine Appearance Clear Urine pH 5.5 Ur Specific [place] 1.020 Urine Protein Negative Urine Glucose (UA) Negative Urine Ketones Negative Urine Blood Large (3+) H Urine Nitrite Negative Ur Leukocyte Esterase Trace H Urine RBC >20 H Urine WBC 0-5 Ur Squamous Epith Cells 3-5 Urine Bacteria None Seen Hyaline Casts 0-2 Influenza Type A (PCR) NEGATIVE Influenza Type B (PCR) NEGATIVE RSV RNA Qual (PCR) NEGATIVE SARS-CoV-2 RNA (RT-PCR) NEGATIVE Imaging Radiologist's Impressions: Impressions Head CT 05/25/24 14:05 IMPRESSION: No acute intracranial finding. Dr. Fletcher was directly informed of the findings by telephone at approximately 2:38 PM on May 25, 2024. Electronically signed by: Hector Vazquez MD 05/25/2024 02:39 PM [facility] Head/Neck CTA 05/25/24 14:30 IMPRESSION: 1. Unchanged age related cerebral atrophy. 2. No intracranial hemorrhage or skull fracture is seen. 3. No evidence of space occupying or enhancing intracranial mass lesion could be found. 4. The current plain CT scan of the brain shows no diagnostic evidence of acute cerebral infarction. EXAMINATION: CT angiogram of brain. CLINICAL INFORMATION: Cerebral vascular disease. COMPARISON: None available. TECHNIQUE: CT angiogram of the brain was performed C7 following the administration of 70 mL of Omnipaque 350. Coronal and sagittal images were reconstructed from axial image data. 3-dimensional volumetric maximum intensity projection images in multiple planes were reconstructed on an independent workstation. This was performed under concurrent direct supervision and monitoring by radiologist. Reformatted maximum intensity projection angiographic images of the brain were reconstructed on an independent workstation. This CT examination was performed using dose optimization techniques as appropriate, variously including the following: *Automated exposure control *Adjustment of mA and/or kV according to patient size (this includes techniques or standardized protocols for targeted exams where dose is matched to indication/reason for exam; i.e. extremities or head) *Use of iterative reconstruction technique DLP: 1671 mGy-cm FINDINGS: There is normal visualization of bilateral anterior, middle and posterior cerebral arteries, internal carotid arteries, basilar artery and terminal portions of bilateral vertebral arteries. Anterior communicating artery is normal. Bilateral posterior communicating arteries are normal. Bilateral internal carotid siphons are smoothly patent. In C7 segment terminus of the right internal carotid siphon, a posterior saccular aneurysm measuring 1.5 mm in AP diameter, 2.1 mm in vertical height (previously 1.5 x 2.0 mm) is seen. Timing of the bolus allows assessment of the major dural venous sinuses. The major cerebral venous sinuses show normal contrast filling. IMPRESSION: 1. Unchanged posterior C7 segment right internal carotid siphon 2 mm saccular aneurysm. 2. No focal cerebral arterial lesion or significant arterial stenosis is seen. EXAMINATION: CT angiogram of neck. CLINICAL INFORMATION: Cerebral vascular disease, evaluate carotid stenosis. COMPARISON: CT angiogram of the head and neck on 03/02/2024 TECHNIQUE: Contrast enhanced CT angiogram of the neck and superior mediastinum was performed following the administration of 70 mL of Omnipaque 350. 3-dimensional volumetric maximum intensity projection images in multiple planes were reconstructed on an independent workstation. This was performed under concurrent direct supervision and monitoring by radiologist. Reformatted maximum intensity projection angiographic images of the neck and superior mediastinum were reconstructed on an independent workstation. Magnified images of carotid bifurcations were reconstructed. This CT examination was performed using dose optimization techniques as appropriate, variously including the following: *Automated exposure control *Adjustment of mA and/or kV according to patient size (this includes techniques or standardized protocols for targeted exams where dose is matched to indication/reason for exam; i.e. extremities or head) *Use of iterative reconstruction technique DLP: 1671 mGy-cm STENOSIS MEASUREMENT: Degree of stenosis was measured and calculated based on NASCET criteria. Carotid stenosis reference using NASCET criteria: % stenosis = (1 - narrowest ICA diameter/diameter of distal cervical ICA) x 100. Mild - < 50% stenosis. Moderate - 50-69% stenosis. Severe - 70-94% stenosis. Near occlusion - 95-99% stenosis. Occluded - 100% stenosis. FINDINGS: RIGHT SIDE: Right internal carotid artery: Smoothly patent. Right external carotid artery: Smoothly patent. Right common carotid artery: Smoothly patent. Right vertebral artery: Smoothly patent and dominant. LEFT SIDE: Left internal carotid artery: Smoothly patent. Left external carotid artery: Smoothly patent. Left common carotid artery: Smoothly patent. Left vertebral artery: Smoothly patent. At the superior mediastinum, the visualized right innominate artery, bilateral subclavian arteries and common carotid arteries are smoothly patent starting from the origin at the aortic arch. IMPRESSION: 1. Unchanged Normal CT angiogram of the neck. No evidence of significant carotid stenosis. 2. Patent bilateral vertebral arteries with right-sided dominance. 3. Findings are communicated to Jayant Fletcher M.D. on 05/25/2024 at 1519 hours. Electronically signed by: Abdirashid Swan MD 05/25/2024 03:23 PM EST RP Chest X-Ray 05/25/24 15:20 IMPRESSION: Stable appearance of heart and lungs. No active disease. Electronically signed by: Garrett Gama DO 05/25/2024 03:43 PM EST RP Assessment and Plan (1) Hypertension: Qualifiers: Hypertension type: essential hypertension Qualified Code(s): I10 - Essential (primary) hypertension Status: Acute Plan 73F PMH left bells palsy, dm, mood disorder, hld, parkinsons, htn, presented with left-sided weakness Left-sided weakness and aphasia Rule out TIA/CVA Aspirin, statin, MRI, neuro eval, [employer], PT OT Differential also includes migraine, worsening of Parkinson's Diabetes Insulin sliding scale Parkinson's Sinemet DVT prophylaxis with Lovenox Full Code Patient with weakness and aphasia working up stroke therefore expected require at least 2 midnights inpatient as she was high risk for recurrence given diabetes and advanced age Quality Stroke Does the patient have a stroke diagnosis?: No VTE Prior VTE?: No VTE Risk Level:: Medical - moderate - high VTE Device Contraindication: Treatment Not Indicated VTE Drug Contraindication: N/A - Med Ordered
[2024-05-25 16:48] LABS: Glucose, Whole Blood 101 mg/dL (60-115)
[2024-05-25] MEDS: LORazepam 2 MG/ML VIAL 1 MG IVPUSH (18:04)
--- NOTE | 2024-05-25 18:04 | PC.NURSE ---
Pt in MRI, Ativan PRN given to help tolerate test In MRI pt noted to be speaking full sentences
[2024-05-25 19:14] VITALS: BP 146/80; PULSE 80; RESP 16; TEMP 36.1; O2SAT 98
--- NOTE | 2024-05-25 19:15 | MHC.EDTECH ---
700 ml urine empty from [employer] canister .
--- NOTE | 2024-05-25 19:23 | PC.NURSE ---
Pt able to hold secretions and swallow without cough. However swallow is delayed. Pt hold liquid in mouth for a prolonged time before swallowing.
--- NOTE | 2024-05-25 19:27 | PHA.MEDREC ---
Addendum entered by Khari Mckeon juanis 05/25/24 20:06: Med rec reviewed Original Note: Pharmacy Consult ? Medication Reconciliation Pharmacy has completed the medication reconciliation. Confirmed medications with patient and historic interpreter anisa. Patient confirmed she recently started taking Carbidopa-Levidopa but states since taking it its been giving her an upset stomach and making her dizzy but states shes still taking it per her Dr. I asked about Amlodipine 2.5mg tabs and patient was not sure about that medication, in claims there is a fill from 04/21 for 30 days we kept on patients med rec. She confirmd the Novolog FlexPen confiming she does it TIDAC and she confirmed she did it this morning. She confirmed her Lantus Solostar and confirmed she does 38 units at bedtime. She confirmed her Monjaro injection once a week on Tuesdays and she states she did it yesterday Thursday 05/24. She confirmed she took her morning medications this morning.
[2024-05-25 21:15] LABS: Glucose, Whole Blood 110 mg/dL (60-115)
[2024-05-25] MEDS: Atorvastatin Calcium 80 MG TABLET PO (21:21)
[2024-05-25 23:25] VITALS: BP 157/89; PULSE 85; RESP 16; TEMP 36.6; O2SAT 98
[2024-05-26 01:52] VITALS: BP 152/82; PULSE 74; RESP 12; TEMP 36; O2SAT 98
[2024-05-26 03:59] VITALS: BP 151/78; PULSE 79; RESP 15; TEMP 36.8; O2SAT 98
--- NOTE | 2024-05-26 04:02 | MHC.EDTECH ---
0400 rounding,Patient awake ,Vitals taken ,Patient comfortable ,no apparent distress noted ,Plan of care continue .
[2024-05-26 05:36] LABS: Hematocrit 39.2 % (37.0-47.0); Hemoglobin 13.6 g/dl (12.0-16.0); Mean Corpuscular HGB Conc 34.7 g/dl (31.0-35.0); Mean Corpuscular Hemoglobin 32.3 pg (27.0-33.0); Mean Corpuscular Volume 93.1 fL (80.0-98.0); Mean Platelet Volume 11.5 fL (9.4-12.3); Platelet Count 196 X10*3/uL (160-400); Red Blood Count 4.21 X10*6/uL (4.20-5.50); Red Cell Distribution Width 12.7 % (11.0-16.0); White Blood Count 7.5 X10*3/uL (4.8-10.8)
[2024-05-26 05:54] LABS: Anion Gap 15 (12-20); Blood Urea Nitrogen 13 mg/dL (9-16); Calcium 9.5 mg/dL (8.4-10.2); Carbon Dioxide 20 mmol/L (22-29); Chloride 110 mmol/L (96-108); Cholesterol 116 mg/dL (<200); Creatinine Clr Calc Pharmacy 62.8; Estimated Glomerular Filt Rate > 60; Glucose Fasting 178 mg/dL (60-99); HDL Cholesterol 51 mg/dL (>40); LDL Cholesterol Calculated 54 mg/dL (<100); Potassium 4.2 mmol/L (3.3-5.1); Sodium 141 mmol/L (135-145); Triglycerides 57 mg/dL (<150)
[2024-05-26 06:39] VITALS: BP 128/89; PULSE 85; RESP 15; TEMP 36.7; O2SAT 99
--- NOTE | 2024-05-26 06:40 | MHC.EDTECH ---
0600 rounding done ,vitals taken ,Patient slept most of the night ,Patient was incontinent of small amount of urine ,Plus [place] Canister empty ,care given ,bed pads change ,warm blanket given ,Patient watching television ,Call morales within Pt reach .
[2024-05-26 07:09] LABS: Glucose, Whole Blood 157 mg/dL (60-115)
[2024-05-26] MEDS: Insulin Lispro 100 UNIT/ML 3 ML VIAL SUBCUT (08:06)
[2024-05-26 08:52] VITALS: BP 128/89; PULSE 85; O2SAT 99
[2024-05-26 09:02] VITALS: BP 143/71; PULSE 78; RESP 18; TEMP 36.1; O2SAT 98
[2024-05-26] MEDS: Gabapentin 300 MG CAPSULE PO (09:11)
[2024-05-26] MEDS: Ascorbic Acid 500 MG TABLET PO (09:12)
[2024-05-26] MEDS: amLODIPine Besylate 5 MG TABLET PO (09:12)
[2024-05-26] MEDS: Aspirin Enteric Coated 81 MG TABLET.DR PO (09:12)
[2024-05-26] MEDS: Topiramate 25 MG TABLET 50 MG PO (09:12)
[2024-05-26] MEDS: Escitalopram Oxalate 10 MG TABLET PO (09:12)
[2024-05-26] MEDS: Carbidopa/Levodopa 25/100 TABLET 1 TAB PO (09:13)
[2024-05-26] MEDS: Cholecalciferol (Vitamin D3) 25 MCG TABLET 50 MCG PO (09:13)
[2024-05-26] MEDS: Enoxaparin Sodium 40 MG/0.4 ML SYRINGE SUBCUT (09:14)
[2024-05-26] MEDS: Loratadine 10 MG TABLET PO (09:30)
--- NOTE | 2024-05-26 10:20 | MHC.CM.PN ---
IMM 05/26/24, Pt has daily [facility] services, 4 hrs a day. HCP is on file and confirmed: Jassi, PCP confirmed: Shine Mcmanus. Pt has a nurse that comes daily to give her insulin from [facility]. For DME she has a walker and cane. Transport home will be by her [facility]. PT has rec acute rehab for pt, and she declines to go, states that she is going home. CM will send clinical update to [facility] and request addition of PT. CM to follow for DC needs.
--- NOTE | 2024-05-26 10:21 | PM.NEUROCN ---
History of Present Illness Data of Consult Service Date: 05/26/24 Primary Care Provider: Shine Mcmanus MD HPI Reason for consult: Encephalopathy 73 years old woman with history of hypertension hyperlipidemia Polanco's palsy an depression came to hospital with new onset of lethargy and an episode of confusion. There was also complain of headache and left-sided weakness. An MRI of brain was done that did not reveal any acute lesion. Now she was feeling better. Her UA revealed signs of UTI. 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 Dyslipidemia Diabetes type 2, uncontrolled Family History Family History Father Osteoporosis Mother Stroke Cancer Surgical History Surgical History H/O: hysterectomy Social History Social History Household Members: None Housing: Apartment Do you presently have visiting nurse or other home services: Yes Unable to assess alcohol history related to: Unable to respond Alcohol intake: former Patient Tobacco Use Status: Never used Tobacco e-Cigarette/Vaping Use: Never Used Second Hand Smoke Exposure: No Substance Use Type: Marijuana Advance Directives Date on File: 11/17/23 service: No Sexual orientation: Straight/Heterosexual Meds Allergies Allergy/AdvReac Type Severity Reaction Status Date / Time COVID-19 vacc, bv (Orig, Allergy Severe Swelling Verified 05/25/24 14:58 Omicron BA.4/5) (Pfizer) [From Pfizer COVID Bival(12y up)(PF)] homosalate [From Coppertone] Allergy Intermediate RASH, itchy Verified 05/25/24 14:58 octinoxate [From Coppertone] Allergy Intermediate RASH, itchy Verified 05/25/24 14:58 oxybenzone [From Coppertone] Allergy Intermediate RASH, itchy Verified 05/25/24 14:58 pioglitazone Allergy Unknown Unknown Verified 05/25/24 14:58 pollen extracts Allergy Unknown Unknown Verified 05/25/24 14:58 diovan Allergy Unknown rash Uncoded 05/15/23 03:09 Active Medications: Current Medications Acetaminophen (Acetaminophen 325 Mg Tablet) 650 mg PO Q6H PRN PRN Reason: Pain, Mild (Pain Scale 1-3), fever or headache Amlodipine Besylate (Amlodipine Besylate 5 Mg Tablet) 5 mg PO DAILY [facility]; Protocol Last Admin: 05/26/24 09:12 Dose: 5 mg Ascorbic Acid (Ascorbic Acid 500 Mg Tablet) 500 mg PO DAILY [facility] Last Admin: 05/26/24 09:12 Dose: 500 mg Aspirin (Aspirin Enteric Coated 81 Mg Tablet.Dr) 81 mg PO DAILY [facility] Last Admin: 05/26/24 09:12 Dose: 81 mg Atorvastatin Calcium (Atorvastatin Calcium 80 Mg Tablet) 80 mg PO BEDTIME [facility] Last Admin: 05/25/24 21:21 Dose: 80 mg Calcium Carbonate (Calcium Carbonate 750 Mg Tab.Chew) 750 mg PO Q4H PRN PRN Reason: Heartburn Carbidopa/Levodopa (Carbidopa/Levodopa 25/100 Tablet) 1 tab PO TID [facility] Last Admin: 05/26/24 09:13 Dose: 1 tab Clonazepam (Clonazepam 0.5 Mg Tablet) 0.5 mg PO DAILY PRN PRN Reason: Anxiety Enoxaparin Sodium (Enoxaparin Sodium 40 Mg/0.4 Ml Syringe) 40 mg SUBCUT Q24H [facility] Last Admin: 05/26/24 09:14 Dose: 40 mg Escitalopram Oxalate (Escitalopram Oxalate 10 Mg Tablet) 10 mg PO DAILY [facility] Last Admin: 05/26/24 09:12 Dose: 10 mg Gabapentin (Gabapentin 300 Mg Capsule) 300 mg PO TID [facility] Last Admin: 05/26/24 09:11 Dose: 300 mg Glucose (Glucose Gel 15 Gm Gel..Gram.) 15 gm PO Q15M PRN; Protocol PRN Reason: per Hypoglycemia Standing Ord. Dextrose (D10) 250 mls @ 750 mls/hr IV Q15M PRN; Protocol PRN Reason: per Hypoglycemia Standing Ord. Insulin Glargine (Insulin Glargine,Hum.Rec.Anlog 100 Unit/Ml 10 Ml Vial) 30 unit SUBCUT BEDTIME [facility] Insulin Human Lispro (Insulin Lispro 100 Unit/Ml 3 Ml Vial) 0 unit SUBCUT QIDACHS [facility]; Protocol Last Admin: 05/26/24 08:06 Dose: 2 unit Loratadine (Loratadine 10 Mg Tablet) 10 mg PO DAILY [facility] Last Admin: 05/26/24 09:30 Dose: 10 mg Lorazepam (Lorazepam 2 Mg/Ml Vial) 1 mg IVPUSH ONCE PRN PRN Reason: mri Last Admin: 05/25/24 18:04 Dose: 1 mg Magnesium Hydroxide (Milk Of Magnesia 30 Ml Oral.Susp) 30 ml PO DAILY PRN PRN Reason: Constipation Melatonin (Melatonin 3 Mg Tablet) 6 mg PO BEDTIME PRN PRN Reason: Insomnia Mirtazapine (Mirtazapine 15 Mg Tablet) 15 mg PO BEDTIME DIANA Topiramate (Topiramate 25 Mg Tablet) 50 mg PO BID [facility] Last Admin: 05/26/24 09:12 Dose: 50 mg Vitamin D (Cholecalciferol (Vitamin D3) 25 Mcg Tablet) 50 mcg PO DAILY [facility] Last Admin: 05/26/24 09:13 Dose: 50 mcg Home Medications ?Medication ?Instructions ?Recorded ?Confirmed ?Last Taken ?Type cetirizine 10 mg tablet 10 mg PO DAILY 12/09/22 05/25/24 05/25/24 History insulin aspart U-100 100 unit/mL 1 sliding scale dose subcut TIDAC 12/09/22 05/25/24 05/25/24 History (3 mL) subcutaneous pen (Novolog FlexPen U-100 Insulin aspart) insulin glargine 100 unit/mL (3 30 unit subcut BEDTIME 12/09/22 05/25/24 05/24/24 History mL) subcutaneous pen (Lantus Solostar U-100 Insulin) acetaminophen 650 mg 650 mg PO Q6H PRN pain 12/16/22 05/25/24 Unknown History tablet,extended release mirtazapine 15 mg tablet 15 mg PO BEDTIME 12/16/22 05/25/24 05/24/24 History albuterol sulfate 90 mcg/actuation 2 puff inhalation Q4H PRN 02/13/23 05/25/24 Unknown History aerosol inhaler Shortness Of Breath Or Wheezing citalopram 20 mg tablet 20 mg PO DAILY 02/13/23 05/25/24 05/25/24 History gabapentin 300 mg capsule 300 mg PO TID 02/13/23 05/25/24 05/25/24 History atorvastatin 20 mg tablet 20 mg PO BEDTIME 11/06/23 05/25/24 05/24/24 History tirzepatide 2.5 mg/0.5 mL 2.5 mg subcut TU 11/06/23 05/25/24 05/24/24 History subcutaneous pen injector (Felipe) amlodipine 2.5 mg tablet 5 mg PO DAILY 05/25/24 05/25/24 05/25/24 History Physical Exam Vital Signs: Vital Signs: Last Vital Signs Temp 96.9 F 05/26/24 09:02 Pulse 78 05/26/24 09:02 Resp 18 05/26/24 09:02 BP 143/71 H 05/26/24 09:02 Pulse Ox 98 05/26/24 09:02 O2 Del Method Room Air 05/26/24 09:02 BMI result Body Mass Index 33.3 Neuro: Other: She is alert and awake with normal spontaneity and fluency of speech. Comprehension was intact. There was mild left-sided facial weakness. Otherwise there was no obvious focal weakness. Results Labs 05/26/24 05:31 05/26/24 05:31 Labs: Short CBC 05/25/24 05/26/24 Range/Units 15:32 05:31 WBC 8.4 7.5 (4.8-10.8) X10*3/uL Hgb 12.7 13.6 (12.0-16.0) g/dl Hct 37.3 39.2 (37.0-47.0) % Plt Count 202 196 (160-400) X10*3/uL BMP 05/25/24 05/26/24 15:32 05:31 Sodium 139 141 Potassium 4.2 4.2 Chloride 109 H 110 H Carbon Dioxide 21 L 20 L BUN 17 H 13 Creatinine 1.00 0.85 Calcium 9.5 9.5 Liver Function 05/25/24 Range/Units 15:32 Total Bilirubin 0.3 (0.0-1.0) mg/dL Direct Bilirubin 0.1 (0.0-0.5) mg/dL AST 26 (5-31) U/L ALT 6 (0-31) U/L Alkaline Phosphatase 99 (39-117) U/L Albumin 3.7 (3.5-5.0) g/dL Urine 05/25/24 Range/Units 15:48 Urine Color Yellow Urine Appearance Clear Urine pH 5.5 (5.0-9.0) Ur Specific [place] 1.020 (1.005-1.025) Urine Protein Negative (Neg-Trace) mg/dL Urine Glucose (UA) Negative (Negative) mg/dL MRI of brain revealed mild chronic microvascular ischemic changes. Assessment and Plan (1) Altered mental status: Qualifiers: Altered mental status type: unspecified Qualified Code(s): R41.82 - Altered mental status, unspecified Status: Acute 73 years old woman with change in mental status with lethargy and confusion now clear. It maybe related to UTI if that was the case. If there was no confirmation of infection, an EEG is recommended. Procedures Date of Service Date of Service: 05/26/24
--- NOTE | 2024-05-26 11:19 | PM.DS ---
DS: Providers Provider Date of Service: 05/26/24 Date of admission: 05/25/24 16:20 Date of discharge: 05/26/24 Primary care physician: Shine Mcmanus MD Consults: 05/25/24 16:20 Consult to Neurology Routine Consulting Provider: Rox Elkins Reason for consultation: left hemiparesis, aphasia DS: Diagnosis Discharge Diagnosis (1) Altered mental status: Status: Acute DS: Summary Hospital Course Hospital Course: from initial hpi: 73F PMH left bells palsy, dm, mood disorder, hld, parkinsons, htn, presented with left-sided weakness. Patient states she has been having headaches and weakness for about 2 days. 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 CTA head and neck was negative. hospital course: Patient was admitted for acute metabolic encephalopathy and aphasia with reports of left-sided weakness. She ruled out for TIA or CVA with negative MRI, was continued on aspirin statin, was seen by neuro who recommended EEG which will be done as outpatient. UA revealed RBCs but no WBCs, negative nitrite, no bacteria no evidence of UTI. Differential includes mood disorder, migraine, seizure. Patient is now back to baseline will be discharged home. For diabetes was continued on insulin sliding scale. For Parkinson's continued on Sinemet. For hypertension continued on amlodipine. Time Attestation Discharge Coordination Time (in mins): 33 Quality: Safe Use of Opioids Does Pt have an Active Cancer Diagnosis on the Problem List?: No Quality: Stroke Does the patient have a stroke diagnosis?: No Physical Exam Vital Signs: Vital Signs: Last Vital Signs Temp 96.9 F 05/26/24 09:02 Pulse 78 05/26/24 09:02 Resp 18 05/26/24 09:02 BP 143/71 H 05/26/24 09:02 Pulse Ox 98 05/26/24 09:02 O2 Del Method Room Air 05/26/24 09:02 BMI result Body Mass Index 33.3 Neuro: Other: She is alert and awake with normal spontaneity and fluency of speech. Comprehension was intact. There was mild left-sided facial weakness. Otherwise there was no obvious focal weakness. DS: Data Data Completed and Pending Labs on day of discharge: Laboratory Results - last 24 hr 05/25/24 05/25/24 05/25/24 14:07 15:13 15:32 WBC 8.4 RBC 3.95 L Hgb 12.7 Hct 37.3 MCV 94.4 MCH 32.2 MCHC 34.0 RDW 12.6 Plt Count 202 MPV 11.4 Immature Gran % (Auto) 0.2 Neut % (Auto) 65.7 Lymph % (Auto) 28.4 [place] % (Auto) 4.9 Eos % (Auto) 0.7 Baso % (Auto) 0.1 Lymph # (Auto) 2.4 [place] # (Auto) 0.4 Eos # (Auto) 0.1 Baso # (Auto) 0.0 Abs Immat Gran (auto) 0.02 Absolute Neuts (auto) 5.5 Absolute Nucleated RBC 0.000 Nucleated RBC % (auto) 0.0 PT 12.3 Whole Blood PT 11.2 INR 1.1 Whole Blood INR 0.9 Sodium 139 Potassium 4.2 Chloride 109 H Carbon Dioxide 21 L Anion Gap 13 BUN 17 H Creatinine 1.00 Estim Creat Clear Calc 53.4 Estimated GFR 55 POC Glucose 128 H Random Glucose 125 H Fasting Glucose Calcium 9.5 Total Bilirubin 0.3 Direct Bilirubin 0.1 AST 26 ALT 6 Alkaline Phosphatase 99 Troponin I High Sens 3.7 B-Natriuretic Peptide 28 Total Protein 6.9 Albumin 3.7 Triglycerides Cholesterol LDL Cholesterol, Calc HDL Cholesterol Lipase 20 Urine Color Urine Appearance Urine pH Ur Specific [place] Urine Protein Urine Glucose (UA) Urine Ketones Urine Blood Urine Nitrite Ur Leukocyte Esterase Urine RBC Urine WBC Ur Squamous Epith Cells Urine Bacteria Hyaline Casts Influenza Type A (PCR) Influenza Type B (PCR) RSV RNA Qual (PCR) SARS-CoV-2 RNA (RT-PCR) 05/25/24 05/25/24 05/25/24 15:33 15:48 16:36 WBC RBC Hgb Hct MCV MCH MCHC RDW Plt Count MPV Immature Gran % (Auto) Neut % (Auto) Lymph % (Auto) [place] % (Auto) Eos % (Auto) Baso % (Auto) Lymph # (Auto) [place] # (Auto) Eos # (Auto) Baso # (Auto) Abs Immat Gran (auto) Absolute Neuts (auto) Absolute Nucleated RBC Nucleated RBC % (auto) PT Whole Blood PT INR Whole Blood INR Sodium Potassium Chloride Carbon Dioxide Anion Gap BUN Creatinine Estim Creat Clear Calc Estimated GFR POC Glucose 101 Random Glucose Fasting Glucose Calcium Total Bilirubin Direct Bilirubin AST ALT Alkaline Phosphatase Troponin I High Sens B-Natriuretic Peptide Total Protein Albumin Triglycerides Cholesterol LDL Cholesterol, Calc HDL Cholesterol Lipase Urine Color Yellow Urine Appearance Clear Urine pH 5.5 Ur Specific [place] 1.020 Urine Protein Negative Urine Glucose (UA) Negative Urine Ketones Negative Urine Blood Large (3+) H Urine Nitrite Negative Ur Leukocyte Esterase Trace H Urine RBC >20 H Urine WBC 0-5 Ur Squamous Epith Cells 3-5 Urine Bacteria None Seen Hyaline Casts 0-2 Influenza Type A (PCR) NEGATIVE Influenza Type B (PCR) NEGATIVE RSV RNA Qual (PCR) NEGATIVE SARS-CoV-2 RNA (RT-PCR) NEGATIVE 05/25/24 05/26/24 05/26/24 21:11 05:31 07:05 WBC 7.5 RBC 4.21 Hgb 13.6 Hct 39.2 MCV 93.1 MCH 32.3 MCHC 34.7 RDW 12.7 Plt Count 196 MPV 11.5 Immature Gran % (Auto) Neut % (Auto) Lymph % (Auto) [place] % (Auto) Eos % (Auto) Baso % (Auto) Lymph # (Auto) [place] # (Auto) Eos # (Auto) Baso # (Auto) Abs Immat Gran (auto) Absolute Neuts (auto) Absolute Nucleated RBC 0.000 Nucleated RBC % (auto) 0.0 PT Whole Blood PT INR Whole Blood INR Sodium 141 Potassium 4.2 Chloride 110 H Carbon Dioxide 20 L Anion Gap 15 BUN 13 Creatinine 0.85 Estim Creat Clear Calc 62.8 Estimated GFR > 60 POC Glucose 110 157 H Random Glucose Fasting Glucose 178 H Calcium 9.5 Total Bilirubin Direct Bilirubin AST ALT Alkaline Phosphatase Troponin I High Sens B-Natriuretic Peptide Total Protein Albumin Triglycerides 57 Cholesterol 116 LDL Cholesterol, Calc 54 HDL Cholesterol 51 Lipase Urine Color Urine Appearance Urine pH Ur Specific [place] Urine Protein Urine Glucose (UA) Urine Ketones Urine Blood Urine Nitrite Ur Leukocyte Esterase Urine RBC Urine WBC Ur Squamous Epith Cells Urine Bacteria Hyaline Casts Influenza Type A (PCR) Influenza Type B (PCR) RSV RNA Qual (PCR) SARS-CoV-2 RNA (RT-PCR) Discharge Plan Discharge Anticipated Discharge Date/Time: 05/26/24 11:16 Patient Disposition: Home Health Service Discharge Diagnosis: ams Referrals: Shine Mcmanus MD [Primary Care Provider] - 1 Week Discharge Medications: Continued clonazepam 0.5 mg tablet 0.5 mg PO DAILY PRN (Reason: Anxiety) 30 Days Qty: 30 0RF (DME) FreeStyle Lite Strips Strip See Rx Instructions .ROUTE .MEDSUPPLY Qty: 150 11RF Rx Instructions: 4 times a day aspirin 81 mg tablet,delayed release (DR/EC) 81 mg PO DAILY 30 Days Qty: 30 0RF ascorbic acid (vitamin C) [Vitamin C] 500 mg Tablet 500 mg PO DAILY 30 Days Qty: 30 0RF metformin 500 mg tablet extended release 24 hr 500 mg PO BID Qty: 60 0RF topiramate 50 mg tablet 50 mg PO BID 30 Days Qty: 60 0RF cholecalciferol (vitamin D3) 50 mcg (2,000 unit) capsule 50 mcg PO DAILY 30 Days Qty: 30 0RF (DME) pen needle, diabetic 32 gauge x 5/32 needle See Rx Instructions subcut .MEDSUPPLY Qty: 50 0RF Rx Instructions: As directed (DME) lancets [TRUEplus Lancets] 33 gauge misc See Rx Instructions .ROUTE .MEDSUPPLY Qty: 100 0RF Rx Instructions: As directed test blood sugar 4 times a day cetirizine 10 mg tablet 10 mg PO DAILY insulin aspart U-100 [Novolog FlexPen U-100 Insulin] 100 unit/mL (3 mL) insulin pen 1 sliding scale dose subcut TIDAC insulin glargine [Lantus Solostar U-100 Insulin] 100 unit/mL (3 mL) insulin pen 30 unit subcut BEDTIME citalopram 20 mg tablet 20 mg PO DAILY albuterol sulfate 90 mcg/actuation Hfa Aerosol Inhaler 2 puff INHALATION Q4H PRN (Reason: Shortness Of Breath Or Wheezing) gabapentin 300 mg capsule 300 mg PO TID atorvastatin 20 mg tablet 20 mg PO BEDTIME Mounjaro 2.5 mg/0.5 mL pen injector 2.5 mg subcut TU carbidopa-levodopa 25-100 mg Tablet 1 tab PO TID Qty: 90 0RF amlodipine 2.5 mg tablet 5 mg PO DAILY acetaminophen 650 mg tablet extended release 650 mg PO Q6H PRN (Reason: pain) mirtazapine 15 mg tablet 15 mg PO BEDTIME Discharge Orders: Discharge Order (Routine); Ordered 05/26/24 Ordered By: Matthew Winter Diet: Advance to usual diet Activity on Discharge: As tolerated Stand Alone Forms: Patient Portal Discharge page Print Language: Japanese Other Ambulatory Orders: EEG ambulatory (Routine) Timeframe: 1 Week Facility: [facility] - Location: Radiology Ordered By: Matthew Winter EEG ambulatory (Routine) Timeframe: 1 Week Facility: [facility] - Location: Radiology Ordered By: Matthew Winter Care Plan Goals: manage ams Health Concerns: ams Plan of Treatment: check EEG Assessment: see above
--- NOTE | 2024-05-26 11:45 | MHC.SL.SWA ---
Speech Pathologist Impression: Risk of Aspiration Due to: Neurological Condition Dysphasia Diet Status: Recommend pt continue w/ REGULAR solids and THIN liquids w/pills WHOLE in PUREE. Pt may require some assistance w/ tray set up d/t left arm deficit. Recommend 1 f/u w/ BREAK AND LOAD OPERATOR to ensure regular solids is appropriate given physical limitations. Liquid Consistency and Strategies for Safe Swallow: Liquid Intake Recommendation: Thin Liquid Intake Strategies: Solid Food Consistency: Dietary Recommendations: Regular Additional Modifications to Solid Foods: It is recommended patient elect softer foods from regular menu to accommodated mild oral phase issues (slow, prolonged mastication). Oral Medication Intake: Whole with Liquid Please contact the pharmacy regarding appropriate crushable or liquid drug formulations that are available whenever modified delivery is recommended. Compensatory Strategies and Precautions to be Taken for Safe Swallow: Sitting Upright (90 deg) Liquids from Cup Liquids from Straw Small Bites and Sips Alternate Liquids/Solids Supervision While Eating and Drinking for Safe Swallow: None Needed Foods to Avoid: Tough or hard difficulty to chew solids. Swallowing Recommended Treatments: Compens. Strategy Educat. Recommendation for Speech: Inpatient Speech Therapy Comment: Patient presents with mild right sided labial droop (secondary to dx/Polanco's Palsy), with all other aspects of oral motor function WFL, and mild oral phase dysphagia, secondary to a slowed rate of mastication of harder boluses. All other aspects of swallow are WFL. Recommend UPGRADE from NPO to Regular Diet, with thin liquids and pills whole with liquid or puree. It was recommended to patient that she elect softer, easier to chew textures from regular menu. BREAK AND LOAD OPERATOR to f/u X1 to assure toleration of recommended diet. MD/RD notified of recommendation by secure text, RN in person. Frequency/Duration: Date Range for Service Req: Timeline to reassess: Cover Machine Operator Clinican/Clinical Fellow: No Supervisory Statement: I have reviewed and agree with the student/clinical fellow's documentation: N/A Speech Language Pathologist: Ayana Mckeon M.A., [facility]-BREAK AND LOAD OPERATOR
[2024-05-26 11:57] VITALS: BP 122/72; PULSE 84; RESP 18; TEMP 36.4; O2SAT 96
--- NOTE | 2024-05-26 12:34 | MHC.CM.PN ---
Pt has been medically cleared for DC, she will go home via private transport and resume VNA services from [facility].
== END 2024-05-26 13:15 | disposition home health service (06) | DRG 102 ==
LOC: HO.ED 15:59 → HO.EDOVER 16:27 → HO.IMC 05-26 07:42
PROVIDERS: Admitting Provider Internal Medicine; Emergency Provider Emergency Medicine; PCP Internal Medicine; Visit Provider Internal Medicine
DX: G43.909 Migraine, unspecified, not intractable, without status migrainosus (principal); G93.41 Metabolic encephalopathy; I69.354 Hemiplegia and hemiparesis following cerebral infarction affecting left non-dominant side; E11.40 Type 2 diabetes mellitus with diabetic neuropathy, unspecified; M79.7 Fibromyalgia; E78.5 Hyperlipidemia, unspecified; I10 Essential (primary) hypertension; G20.A1 Parkinson's disease without dyskinesia, without mention of fluctuations; R56.9 Unspecified convulsions; Z20.822 Contact with and (suspected) exposure to COVID-19; Z79.4 Long term (current) use of insulin; Z79.82 Long term (current) use of aspirin; Z79.84 Long term (current) use of oral hypoglycemic drugs; Z79.899 Other long term (current) drug therapy
CPT/HCPCS: 0241U; 36415; 70450; 70496; 70498; 70551; 71045; 80048; 80061; 80076; 81001; 82947; 83690; 83880; 84484; 85025; 85027; 85610; 92610; 93005; 97162; 97166; 99285; J1650; J2060; Q9967

== ENCOUNTER → 2024-05-25 14:06 | Outpatient (BNV) | payer OTHER, SELFPAY | PROVIDERS: Admitting Provider Internal Medicine; Emergency Provider Emergency Medicine; PCP Internal Medicine; Visit Provider Internal Medicine Cardiovascular Disease | DX: R94.31 Abnormal electrocardiogram [ECG] [EKG] (principal) | CPT/HCPCS: 93010 ==

== ENCOUNTER → 2024-05-25 16:20 | Outpatient (BNV) | payer OTHER, SELFPAY | PROVIDERS: Admitting Provider Internal Medicine; Emergency Provider Emergency Medicine; Visit Provider Internal Medicine | DX: I10 Essential (primary) hypertension (principal) | CPT/HCPCS: 99223; 99239 ==

== ENCOUNTER → 2024-05-25 16:20 | Outpatient (BNV) | payer OTHER, SELFPAY | PROVIDERS: Admitting Provider Internal Medicine; Emergency Provider Emergency Medicine; PCP Internal Medicine; Visit Provider Psychiatry & Neurology Neurology | DX: R41.82 Altered mental status, unspecified (principal) | CPT/HCPCS: 99222 ==

== ENCOUNTER 2024-10-09 07:52 | Emergency (ER) | payer OTHER, SELFPAY ==
[2024-10-09] VITALS (7 sets, daily range): BP systolic 135–170; BP diastolic 70–110; PULSE 68–93; RESP 16–18; TEMP 36.5–36.7; O2SAT 95–99; BMI 32.4
--- NOTE | ~2024-10-09 | XR_ITS ---
CLINICAL HISTORY: Dizziness, lower extremity swelling. 1 view chest x-ray Comparison: 05/25/2024 Findings: Small hazy left basilar atelectasis/infiltrate. No significant change in cardiomediastinal silhouette. No acute fracture. IMPRESSION: Small hazy left basilar atelectasis/infiltrate. This document has been electronically signed by: Janey Sanford MD on 10/09/2024 11:09:15
--- NOTE | ~2024-10-09 | US_ITS ---
CLINICAL HISTORY: Swelling Venous duplex ultrasound bilateral lower extremity Comparison: None Findings: The visualized/evaluated deep veins are fully compressible with normal Doppler color flow and spectral tracings (Quinteros mirrors declined compression of the mid to distal portions of the femoral veins). IMPRESSION: 1. Negative for bilateral lower extremity deep vein thrombosis. This document has been electronically signed by: Janey Sanford MD on 10/09/2024 11:11:00
--- NOTE | 2024-10-09 08:14 | ECG_ITS ---
Test Reason : DIZZINESS Blood Pressure : */* mmHG Vent. Rate : 86 BPM Atrial Rate : 86 BPM P-R Int : 130 ms QRS Dur : 78 ms QT Int : 376 ms P-R-T Axes : 67 8 -3 degrees QTcB Int : 449 ms Normal sinus rhythm Nonspecific T wave abnormality Abnormal ECG When compared with ECG of 25-May-2024 14:55, No significant changes seen Referred By: Generic ED Physician Electronically Signed By: ALBA POLLACK
--- OUTSIDE RECORDS SUMMARY | 2024-10-09 08:21 | XMS_ITS | Clinical Summary ---
Author Organization Unknown Care Team Providers Care Java Security Engineer Name Role Phone DESTINY TREVIÑO MD, ELY Unavailable Karla CARLSON RN, MARIO Unavailable Unavailable MELANIE ([facility]) C - PT, MANASA Unavailable Unavailable Payers Payer Name Policy Type Policy Number Effective Date Expira tion Date [facility] [id number] [place]ID [place] [id number] MEDICARE - 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 Ordering Clinician Indication Dosage Frequency Signature (SIG) Comments Components albuterol sulfate HFA 90 mcg/actuati on aerosol inhaler 12-11 00:00: 00 Yes [id number] 2 puff NEEDED 2 puff NEEDED (route: inhalation ) Med Classific ation: Respirato ry Therapy Agents aspirin 81 mg tablet,jana yed release 12-10 00:00: 00 Yes [id number] 81 mg DAILY 81 mg DAILY (route: oral) Med Classific ation: Hematolog ical Agents atorvastati n 20 mg tablet 12-11 00:00: 00 Yes [id number] 20 mg BEDTIME 20 mg BEDTIME (route: oral) Med Classific ation: Cardiovas cular Therapy Agents clonazepam 0.5 mg tablet 12-10 00:00: 00 04-06 23:59 :00 No [id number] 0.5 mg NEEDED 0.5 mg NEEDED (route: oral) Med Classific ation: Central Nervous System Agents cyclobenzap rine 5 mg tablet 12-11 00:00: 00 04-06 23:59 :00 No [id number] 5 mg NEEDED 5 mg NEEDED (route: oral) Med Classific ation: Locomotor System escitalopra m 10 mg tablet 12-11 00:00: 00 04-06 23:59 :00 No [id number] 10 mg DAILY 10 mg DAILY (route: oral) Med Classific ation: Central Nervous System Agents gabapentin 300 mg capsule 12-11 00:00: 00 Yes [id number] 300 capsule 3 TIMES DAILY 300 capsule 3 TIMES DAILY (route: oral) Med Classific ation: Central Nervous System Agents Lantus Solostar U-100 Insulin 100 unit/mL (3 mL) subcutaneou s pen 12-11 00:00: 00 02-04 23:59 :00 No [id number] 22 unit EVERY 12 HOURS 22 unit EVERY 12 HOURS (route: subcutaneo us) Med Classific ation: Endocrine lisinopril 20 mg tablet 12-11 00:00: 00 04-06 23:59 :00 No [id number] 20 mg DAILY 20 mg DAILY (route: oral) Med Classific ation: Cardiovas cular Therapy Agents metformin 500 mg tablet 12-11 00:00: 00 Yes [id number] 500 mg 2 TIMES DAILY 500 mg 2 TIMES DAILY (route: oral) Med Classific ation: Endocrine mirtazapine 7.5 mg tablet 12-11 00:00: 00 04-06 23:59 :00 No [id number] 7.5 mg BEDTIME 7.5 mg BEDTIME (route: oral) Med Classific ation: Central Nervous System Agents olanzapine 2.5 mg tablet 12-11 00:00: 00 04-06 23:59 :00 No [id number] 2.5 mg BEDTIME 2.5 mg BEDTIME (route: oral) Med Classific ation: Central Nervous System Agents Ozempic 1 mg/dose (4 mg/3 mL) subcutaneou s pen injector 12-11 00:00: 00 Yes [id number] 1 mg WEEKLY 1 mg WEEKLY (route: subcutaneo us) Med Classific ation: Endocrine simethicone 80 mg chewable tablet 12-11 00:00: 00 02-05 23:59 :00 No [id number] 80 mg NEEDED 80 mg NEEDED (route: oral) Med Classific ation: Gastroint estinal Therapy Agents topiramate 50 mg tablet 12-11 00:00: 00 Yes [id number] 50 mg 2 TIMES DAILY 50 mg 2 TIMES DAILY (route: oral) Med Classific ation: Central Nervous System Agents trazodone 50 mg tablet 12-11 00:00: 00 Yes [id number] 50 mg NEEDED 50 mg NEEDED (route: oral) Med Classific ation: Central Nervous System Agents Vitamin C 500 mg tablet 12-11 00:00: 00 Yes [id number] 500 mg DAILY 500 mg DAILY (route: oral) Med Classific ation: Electroly te Balance-N utritiona l Products Vitamin D3 50 mcg (2,000 unit) capsule 12-11 00:00: 00 04-06 23:59 :00 No [id number] 50 mcg DAILY 50 mcg DAILY (route: oral) Med Classific ation: Electroly te Balance-N utritiona l Products Lantus Solostar U-100 Insulin 100 unit/mL (3 mL) subcutaneou s pen 07 00:00: 00 Yes [id number] 30 unit DAILY 30 unit DAILY (route: subcutaneo us) Med Classific ation: Endocrine citalopram 20 mg tablet 2022-07 0-06 00:00: 00 Yes [id number] 20 mg DAILY 20 mg DAILY (route: oral) Med Classific ation: Central Nervous System Agents mirtazapine 15 mg tablet 2022-07 0-06 00:00: 00 Yes [id number] 15 mg BEDTIME 15 mg BEDTIME (route: oral) Med Classific ation: Central Nervous System Agents carbidopa 25 mg-levodopa 100 mg tablet 03-05 00:00: 00 Yes [id number] 25 mg 3 TIMES DAILY 25 mg 3 TIMES DAILY (route: oral) Med Classific ation: Central Nervous System Agents cefuroxime axetil 500 mg tablet 03-05 00:00: 00 03-14 23:59 :00 No [id number] 500 mg 2 TIMES DAILY 500 mg 2 TIMES DAILY (route: oral) Med Classific ation: Anti-Infe ctive Agents Vital Signs Vital Name Observation Time Observation Value Commen ts Temperature 2024-10-07 14:28:00.000 97.3 [degF] Temperature 2024-10-06 13:23:00.000 97.4 [degF] Temperature 2024-10-05 14:18:00.000 97.5 [degF] Temperature 2024-10-04 15:01:00.000 97.8 [degF] Temperature 2024-10-03 14:43:00.000 97.5 [degF] Temperature 2024-10-02 11:51:00.000 98.1 [degF] Temperature 2024-10-01 12:22:00.000 97.4 [degF] Plan of Treatment Planned Activity Planned Date Details Comments Future Scheduled Test SKILLED NU RSE TO EVALUATE PATIENT, IDENTIFY PRIMARY AND CO-MORBID CONDITIONS CODED PER CODING GUIDELINES, AND DEVELOP PATIENT SPECIFIC PLAN OF CARE THAT INCLUDES PATIENT GOAL FOR HOME HEALTH. [code = SKILLED NURSE TO EVALUATE PATIENT, IDENTIFY PRIMARY AND CO-MORBID CONDITIONS CODED PER CODING GUIDELINES, AND DEVELOP PATIENT SPECIFIC PLAN OF CARE THAT INCLUDES PATIENT GOAL FOR HOME HEALTH.] Future Scheduled Test SKILLED NU RSE TO PERFORM HOME SAFETY AND FALL ASSESSMENT AND PROVIDE INSTRUCTION TO IMPLEMENT HOME SAFETY AND FALL PREVENTION STRATEGIES. [code = SKILLED NURSE TO PERFORM HOME SAFETY AND FALL ASSESSMENT AND PROVIDE INSTRUCTION TO IMPLEMENT HOME SAFETY AND FALL PREVENTION STRATEGIES.] Future Scheduled Test PATIENT PETERSON S A RISK OF HOSPITALIZATION AND ED USE. SKILLED NURSE TO ESTABLISH SUPPORT MEASURES TO MINIMIZE RISK OF HOSPITALIZATION AND ED USE, AND INSTRUCT PATIENT/CAREGIVER ON METHODS TO REDUCE AVOIDABLE HOSPITALIZATION AND ED USE. [code = PATIENT HAS A RISK OF HOSPITALIZATION AND ED USE. SKILLED NURSE TO ESTABLISH SUPPORT MEASURES TO MINIMIZE RISK OF HOSPITALIZATION AND ED USE, AND INSTRUCT PATIENT/CAREGIVER ON METHODS TO REDUCE AVOIDABLE HOSPITALIZATION AND ED USE.] Future Scheduled Test SKILLED NU RSE TO PROVIDE INSTRUCTION TO PATIENT/CAREGIVER RELATED TO DISCHARGE PLANNING. [code = SKILLED NURSE TO PROVIDE INSTRUCTION TO PATIENT/CAREGIVER RELATED TO DISCHARGE PLANNING.] Future Scheduled Test SKILLED NU RSE TO O/A OF PATIENTS MENTAL/BEHAVIORAL STATUS, ASSESS VITAL SIGNS DAILY [code = SKILLED NURSE TO O/A OF PATIENTS MENTAL/BEHAVIORAL STATUS, ASSESS VITAL SIGNS DAILY ] Future Scheduled Test CLINICAL S UMMARY (SOC/RECERT, 10 DAY, 60 DAY): THE PATIENT IS RECEIVING HOMECARE DUE TO NEW ONSET/EXACERBATION OF: YES RECENT HOSPITALIZATION/INPATIENT ADMISSION RELATED TO: YES NEW OR CHANGED MEDICATIONS PERTINENT TO THE PLAN OF CARE: YES PATIENT LIVING SITUATION/CAREGIVER STATUS: ALONE SUMMARIZE SKILLED NEED: MEDICATION MANAGEMENT, VITAL SIGN ASSESSMENT, MENTAL STATUS ASSESSMENT AND DIAGNOSIS MANAGEMENT AND MEDICAL [code = CLINICAL SUMMARY (SOC/RECERT, 10 DAY, 60 DAY): THE PATIENT IS RECEIVING HOMECARE DUE TO NEW ONSET/EXACERBATION OF: YES RECENT HOSPITALIZATION/INPATIENT ADMISSION RELATED TO: YES NEW OR CHANGED MEDICATIONS PERTINENT TO THE PLAN OF CARE: YES PATIENT LIVING SITUATION/CAREGIVER STATUS: ALONE SUMMARIZE SKILLED NEED: MEDICATION MANAGEMENT, VITAL SIGN ASSESSMENT, MENTAL STATUS ASSESSMENT AND DIAGNOSIS MANAGEMENT AND MEDICAL ] Future Scheduled Test SKILLED NU RSE WILL MAINTAIN SITUATIONAL AWARENESS FOR SAFETY AND WILL NOTIFY CLINICAL UROLOGIST MD AND PHYSICIAN/PROVIDER WITH ANY CHANGE IN CONDITION. [code = SKILLED NURSE WILL MAINTAIN SITUATIONAL AWARENESS FOR SAFETY AND WILL NOTIFY CLINICAL UROLOGIST MD AND PHYSICIAN/PROVIDER WITH ANY CHANGE IN CONDITION.] Future Scheduled Test SKILLED NU RSE TO REVIEW PATIENT MEDICATIONS. INSTRUCT PATIENT/CAREGIVER ON MONITORING OF EFFECTIVENESS, ADVERSE DRUG REACTIONS, SIDE EFFECTS OF ALL MEDICATIONS (PRESCRIPTION/-OTC), AND HOW AND WHEN TO REPORT PROBLEMS. [code = SKILLED NURSE TO REVIEW PATIENT MEDICATIONS. INSTRUCT PATIENT/CAREGIVER ON MONITORING OF EFFECTIVENESS, ADVERSE DRUG REACTIONS, SIDE EFFECTS OF ALL MEDICATIONS (PRESCRIPTION/-OTC), AND HOW AND WHEN TO REPORT PROBLEMS.] Future Scheduled Test SKILLED NU RSE TO ADMINISTER MEDICATIONS DAILY AND PRE-POUR MEDICATIONS TILL NEXT PRISON VISIT PER MEDICATION LIST. [code = SKILLED NURSE TO ADMINISTER MEDICATIONS DAILY AND PRE-POUR MEDICATIONS TILL NEXT PRISON VISIT PER MEDICATION LIST.] Future Scheduled Test SKILLED NU RSE FOR MEDICATION ADMINISTRATION PER MEDICATION LIST TO BE PERFORMED DAILY [code = SKILLED NURSE FOR MEDICATION ADMINISTRATION PER MEDICATION LIST TO BE PERFORMED DAILY ] Future Scheduled Test SKILLED NU RSE FOR O/A AND SKILLED TEACHING RELATED TO MANAGEMENT OF DEPRESSIVE SYMPTOMS AND/OR DEPRESSION. SN TO REPORT SIGNIFICANT CHANGE IN DEPRESSIVE SYMPTOMS TO CLINICAL PROVIDER FOR EARLY INTERVENTION. [code = SKILLED NURSE FOR O/A AND SKILLED TEACHING RELATED TO MANAGEMENT OF DEPRESSIVE SYMPTOMS AND/OR DEPRESSION. SN TO REPORT SIGNIFICANT CHANGE IN DEPRESSIVE SYMPTOMS TO CLINICAL PROVIDER FOR EARLY INTERVENTION.] Future Scheduled Test SKILLED NU RSE FOR O/A OF NEUROCOGNITIVE AND BEHAVIORAL STATUS [code = SKILLED NURSE FOR O/A OF NEUROCOGNITIVE AND BEHAVIORAL STATUS] Future Scheduled Test SKILLED NU RSE TO ASSESS PATIENTS PSYCHOSOCIAL STATUS TO IDENTIFY POTENTIAL ISSUES THAT MAY COMPLICATE THE PROVISION OF THE PLAN OF CARE INCLUDING THE PATIENTS ABILITY TO ACCESS COMMUNITY RESOURCES AND PSYCHOSOCIAL SUPPORT SERVICES. [code = SKILLED NURSE TO ASSESS PATIENTS PSYCHOSOCIAL STATUS TO IDENTIFY POTENTIAL ISSUES THAT MAY COMPLICATE THE PROVISION OF THE PLAN OF CARE INCLUDING THE PATIENTS ABILITY TO ACCESS COMMUNITY RESOURCES AND PSYCHOSOCIAL SUPPORT SERVICES.] Future Scheduled Test SKILLED NU RSE FOR O/A OF CLIENT'S SOCIAL ISOLATION AND PROVIDE ASSISTANCE TO CLIENT IN DEVELOPMENT OF PLANNED ACTIVITIES [code = SKILLED NURSE FOR O/A OF CLIENT'S SOCIAL ISOLATION AND PROVIDE ASSISTANCE TO CLIENT IN DEVELOPMENT OF PLANNED ACTIVITIES] Future Scheduled Test MEDICATION S WILL BE HELD AND STORED IN LOCKBOX [code = MEDICATIONS WILL BE HELD AND STORED IN LOCKBOX] Future Scheduled Test SKILLED NU RSE FOR O/A OF ALTERED MOOD [code = SKILLED NURSE FOR O/A OF ALTERED MOOD] Future Scheduled Test SKILLED NU RSE FOR O/A OF PATIENT'S RISK FOR VIOLENCE (TOWARD SELF OR OTHERS) AND TO PROVIDE INTERVENTION TECHNIQUES TO PROMOTE SAFETY TO PATIENT AND OTHERS [code = SKILLED NURSE FOR O/A OF PATIENT'S RISK FOR VIOLENCE (TOWARD SELF OR OTHERS) AND TO PROVIDE INTERVENTION TECHNIQUES TO PROMOTE SAFETY TO PATIENT AND OTHERS] Future Scheduled Test SKILLED NU RSE FOR ADMINISTRATION AND TEACHING OF PRESCRIBED INJECTION THERAPY FOR INSULIN ORDERED [code = SKILLED NURSE FOR ADMINISTRATION AND TEACHING OF PRESCRIBED INJECTION THERAPY FOR INSULIN ORDERED ] Goal 2023-02-04 Patient Goal - TAKING MY MED S Goal 2023-04-06 Patient Goal - TAKING MY MED S Goal 2023-06-04 Patient Goal - TAKING MY MED S Goal 2023-08-03 Patient Goal - TAKING MY MED S Goal 2023-10-02 Patient Goal - TAKING MY MED S Goal 2023-12-01 Patient Goal - TAKING MY MED S Goal 2024-01-30 Patient Goal - TAKING MY MED S Goal 2024-03-30 Patient Goal - TAKING MY MED S Goal 2024-05-30 Patient Goal - TAKING MY MED S Goal 2024-07-28 Patient Goal - TAKING MY MED S Goal 2024-09-26 Patient Goal - TAKING MY MED S Goal Patient Goal - TAKING MY MED S Goal Provider Goal - A PLAN OF CARE WILL BE ESTABLISHED THAT MEETS PATIENT'S PRISON NEEDS AND INCLUDES PATIENT GOAL FOR HOME HEALTH. Goal Provider Goal - PATIENT/CAREGIVER WILL VERBALIZE/DEMONSTRATE EFFECTIVE HOME SAFETY AND FALL PREVENTION STRATEGIES THROUGHOUT CERTIFICATION PERIOD. Goal Provider Goal - PATIENT WILL HAVE SUPPORT MEASURES ESTABLISHED TO PREVENT HOSPITALIZATION AND ED USE AND PATIENT/CAREGIVER WILL VERBALIZE/DEMONSTRATE METHODS TO REDUCE AVOIDABLE HOSPITALIZATION AND ED USE BY END OF EPISODE. Goal Provider Goal - PATIENT/CAREGIVER WILL VERBALIZE UNDERSTANDING OF DISCHARGE PLANNING INSTRUCTIONS BY DATE OF DISCHARGE. Goal Provider Goal - ALTERED MENTAL/BEHAVIORAL STATUS WILL BE IDENTIFIED PROMPTLY AND INTERVENTION INITIATED QUICKLY TO MINIMIZE ASSOCIATED RISKS THROUGHOUT CERTIFICATION PERIOD. Goal Provider Goal - PATIENT WILL REMAIN SAFE, FREE FROM HOSPITALIZATION, AND ADHERE TO THE SKILLED NURSES PLAN OF CARE THROUGHOUT THE CERTIFICATION PERIOD. Goal Provider Goal - PATIENT WILL REMAIN SAFE IN THE COMMUNITY AND WILL BE FREE OF DANGER TO SELF AND OTHERS THROUGHOUT THE CERTIFICATION PERIOD. Goal Provider Goal - PATIENT/CAREGIVER WILL VERBALIZE UNDERSTANDING OF EDUCATION PROVIDED ON MEDICATIONS BY THE END OF THE CERTIFICATION PERIOD. Goal Provider Goal - PATIENT WILL COMPLY WITH MEDICATION WHEN SKILLED NURSE ADMINISTERS AND PRE-POURS MEDICATION THROUGHOUT CERTIFICATION PERIOD. Goal Provider Goal - PATIENT WILL COMPLY WITH MEDICATION WHEN NURSE ADMINISTERS THROUGHOUT CERTIFICATION PERIOD. Goal Provider Goal - PATIENT WILL REMAIN SAFE WITHOUT DECOMPENSATION IN DEPRESSIVE CONDITION, WHILE MAINTAINING OPTIMAL LEVEL OF MENTAL HEALTH AND WELL BEING THROUGHOUT CERTIFICATION PERIOD. Goal Provider Goal - PATIENT WILL BE ABLE TO PERFORM DAILY FUNCTIONS AND MAINTAIN OPTIMAL BEHAVIORAL/NEUROCOGNITIVE STATUS THROUGHOUT CERTIFICATION PERIOD. Goal Provider Goal - PSYCHOSOCIAL NEEDS WILL BE IDENTIFIED AND PLAN IMPLEMENTED TO MINIMIZE RISK THROUGHOUT CERTIFICATION PERIOD. Goal Provider Goal - PATIENT WILL DEMONSTRATE AN INCREASED INTEREST IN SOCIALIZATION AND ACTIVITIES BY THE END OF THE CERTIFICATION PERIOD. Goal Provider Goal - MEDICATION WILL BE STORED IN LOCKBOX FOR SAFETY. Goal Provider Goal - PATIENT WILL BE ABLE TO PERFORM DAILY FUNCTIONS AND HAVE OPTIMAL IMPROVEMENT IN MOOD STABILITY THROUGHOUT CERTIFICATION PERIOD. Goal Provider Goal - PATIENT WILL REMAIN SAFE IN COMMUNITY WITHOUT EVIDENCE OF INJURY/HARM TO SELF OR OTHERS THROUGHOUT CERTIFICATION PERIOD. Goal Provider Goal - PATIENT WILL RECEIVE INSULIN ORDERED. PATIENT/CAREGIVER WILL VERBALIZE/DEMONSTRATE KNOWLEDGE OF INJECTION THERAPY BY THE END OF THE CERTIFICATION PERIOD. Encounters Start Date/Time End Date/Time Encounter Type Admission Type Attending [facility] Care Department Encounter ID Discharge Date Discharge Status Discharge Condition Discharge Reason Percent Goals Met 2022-12-11 00:00:00 2024-11-29 00:00:00 Outpatient RECERTIFIC ATION MARIO CARLSON [facility] [id number] 10.00
--- OUTSIDE RECORDS SUMMARY | 2024-10-09 08:21 | XMS_ITS | Data Portability ---
Author Organization [facility], Id in - [place] Address [address] [place] [id number] Care Team Providers Care News Intern Name Role Phone [facility] OTHER [phone] [facility] OTHER Assessment Encounter Date Assessment Date Assessment LastModified by Organization Details LastModified Time 02/12/2023 02/12/2023 service called for LE edema found 72 je[address] pierre with HTN, T2DM on insulin c/o new LE edema past 1-2days denies chest pain/pressure/SO B/change in exercise capacity denies headache, vision changes reports HTN meds disconitnued 1-2 months prior reports recently visited local ED for 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 I provided real-time medical direction for this encounter and was immediately available to provide additional phone-based assistance as needed. History as noted in EMR and by conveyor system operator. I would add / emphasize: Patient seen for report of increased urination and leg swelling. java developer consultant used for entirety of visit. AVSS and well-appearing with slight lower extremity swelling on exam. No shortness of breath chest pain orthopnea. Urinalysis not suggestive of urinary tract infection will check culture, [id number] BMP without acute life-threatening metabolic abnormality or renal dysfunction. Given the lack of signs of acute decompensated congestive heart failure we will recommend urgent evaluation with PCP. Red flags that should prompt urgent evaluation in the emergency department discussed and patient voices understanding. pallfather Not available 07/09/2024 11:47:00 Plan of Treatment Reminders Order Date Submit Date Provider Last Modified By Organization Details Last Modified Time Details Appointments None recorded. Lab culture, urine 2024 025 [place] [facility] (Centralized Electronic Ordering - All Locations), Patient Can Go To The Location Of Their Choice, [id number] 20:05:49 urinalysis, dipstick 2024 025 [facility], [address] [place] [address], [id number] 17:26:29 BMP, serum or plasma 2024 025 [facility], [address] [place] [address], [id number] 17:20:25 Referral None recorded. Procedures None recorded. Surgeries None recorded. Imaging None recorded. Medication Orders fluticasone propionate 50 mcg/actuati on nasal spray,suspe nsion 2024 025 [facility], [address] [place] [address], [id number], 13:51:17 loratadine 10 mg tablet 2024 025 [facility], [address] [place] [address], [id number], 08:43:30 Patient TargetsNo targets recorded. Patient InstructionsNo instructions recorded. Reason for Referral None Reported. Results Created Date Observation Date Name Description Value Unit Range Abnormal Flag Note LastModifiedBy Organization Detail LastModifiedTime 07/07/1907/09/2024 URINE CULTU RE,CO MPREH ENSIV E urine culture,comp rehensive Final report Not Available [facility] ([facility]) [address] [facility], [place], [address], 07/09/2024 20:05:49 07/07/19 25 07/09/2024 URINE CULTU RE,CO MPREH ENSIV E result 1 COMMEN T Mixed uroge nital giuseppe 25,00 0-50, 000 colon y formi ng units per mL Not Available [facility] ([facility]) [address] [facility], [place], [address], 07/09/2024 20:05:49 Result Notes None recorded. Medical Equipment None Reported. Allergies Allergen ID Allergen Name Allergen Category Reaction Reaction Severity Criticality Documentation Date Start Date Code Code System Note Provider Name and Address Organization Details Recorded Time 94064 lisinopri l medicatio n Not available Not available Not available 07/07/2024 75353 RxNorm Not Available [facility] production 5 09:03:53 51144 valsartan medicatio n Not available Not available Not available 07/07/2024 83906 RxNorm Not Available [facility] - production 5 09:03:53 21359 pioglitaz one medicatio n Not available Not available Not available 07/07/2024 57908 RxNorm Not Available [facility] - production 5 09:03:53 Medications Name Sig Start Date Stop Date Status Note LastModified by Organization Details LastModified Time medbox status USE DIRECTED active Not Available Not Available No t Available cefuroxime axetil 250 mg tablet TAKE 1 TABLET BY MOUTH TWICE DAILY UNTIL FINISHED active Not Available Not Available No t Available atorvastatin 20 mg tablet TAKE 1 TABLET BY MOUTH AT BEDTIME active Not Available Not Available No t Available Vitamin C 500 mg tablet TAKE 1 TABLET BY MOUTH EVERY MORNING active Not Available Not Available No t Available trazodone 50 mg tablet TAKE 1 TABLET BY MOUTH AT BEDTIME (MAY REPEAT ONCE NEEDED) active Not Available Not Available No t Available cetirizine 10 mg tablet TAKE 1 TABLET BY MOUTH EVERY MORNING active Not Available Not Available No t Available meloxicam 15 mg tablet TAKE 1 TABLET BY MOUTH EVERY DAY active Not Available Not Available No t Available polyvinyl alcohol 1.4 % eye drops active Not Available Not Available Not Available clonazepam 0.5 mg tablet TAKE 1 TABLET BY MOUTH EVERY DAY NEEDED FOR SEVERE ANXIETY active Not Available Not Available No t Available amlodipine 2.5 mg tablet TAKE 2 TABLETS BY MOUTH ONCE DAILY IN THE MORNING active Not Available Not Available Not Available olanzapine 2.5 mg tablet TAKE 1 TABLET BY MOUTH AT BEDTIME active Not Available Not Available No t Available aspirin 81 mg tablet,delay ed release TAKE 1 TABLET BY MOUTH EVERY MORNING active Not Available Not Available No t Available acetaminophe n ER 650 mg tablet,exten ded release TAKE 1 TABLET BY MOUTH EVERY 6 HOURS NEEDED FOR PAIN active Not Available Not Available No t Available citalopram 20 mg tablet TAKE 1 TABLET BY MOUTH EVERY MORNING active Not Available Not Available No t Available baclofen 10 mg tablet TAKE 1 TABLET BY MOUTH THREE TIMES DAILY NEEDED FOR MUSCLE SPASMS OR PAIN active Not Available Not Available No t Available Gas Relief (simethicone ) 80 mg chewable tablet CHEW 1 TABLET BY MOUTH THREE TIMES DAILY IN THE MORNING, AT NOON, AND AT BEDTIME NEEDED FOR GAS active Not Available Not Available No t Available gabapentin 300 mg capsule TAKE 1 CAPSULE BY MOUTH THREE TIMES DAILY IN THE MORNING, EVENING, AND BEDTIME active Not Available Not Available Not Available bisacodyl 5 mg tablet,delay ed release TAKE 2 TABLETS BY MOUTH ONCE FOR COLONOSCOPY DIRECTED active Not Available Not Available Not Available mirtazapine 15 mg tablet TAKE 1 TABLET BY MOUTH AT BEDTIME active Not Available Not Available No t Available gabapentin 100 mg capsule TAKE 1 CAPSULE BY MOUTH THREE TIMES DAILY active Not Available Not Available Not Available cefuroxime axetil 500 mg tablet TAKE 1 TABLET BY MOUTH TWICE DAILY active Not Available Not Available No t Available polyethylene glycol 3350 17 gram/dose oral powder MIX BOTTLE WITH 64 OUNCES CLEAR LIQUID. DRINK FIRST 1/2 AT 6 IN THE EVENING BEFORE COLONOSCOPY (8 OUNCES GLASS EVERY 15 MINUTES UNTIL FINISHED). AT 11 IN THE EVENING DRINK SECOND 1/2. active Not Available Not Available Not Available carbidopa 25 mg-levodopa 100 mg tablet TAKE 1 TABLET BY MOUTH THREE TIMES DAILY active Not Available Not Available Not Available fluticasone propionate 50 mcg/actuatio n nasal spray,suspen wes INHALE 1 SPRAY IN EACH NOSTRIL ONCE DAILY FOR FOR CONGESTION active Not Available Not Available N ot Available metformin ER 500 mg tablet,exten ded release 24 hr TAKE 1 TABLET BY MOUTH TWICE DAILY IN THE MORNING AND IN THE EVENING active Not Available Not Available No t Available loratadine 10 mg tablet Take 1 tablet every day by oral route for 30 days. 2024 active Not Available Not Available Not Avai lable Ventolin HFA 90 mcg/actuatio n aerosol inhaler INHALE 2 PUFFS EVERY 4 HOURS NEEDED FOR WHEEZING active Not Available Not Available No t Available valsartan 160 mg tablet TAKE 1/2 TABLET BY MOUTH ONCE DAILY active Not Available Not Available No t Available escitalopram 10 mg tablet TAKE 1 TABLET BY MOUTH EVERY MORNING active Not Available Not Available No t Available Novolog FlexPen U-100 Insulin aspart 100 unit/mL (3 mL) subcutaneous INJECT 4-12 UNITS SUBCUTANEOU SLY THREE TIMES DAILY WITH MEALS PER SLIDING SCALE BLOOD SUGAR 150-200 = 4 UNITS, 201-250 = 6U, 251-300 = 8U, 301-350 = 10U, > 351 = 12U active Not Available Not Available No t Available cyclobenzapr ine 5 mg tablet TAKE 1 TABLET BY MOUTH THREE TIMES DAILY NEEDED FOR MUSCLE SPASMS active Not Available Not Available No t Available Alcohol Prep Pads USE DIRECTED TO TEST BLOOD SUGAR TWICE DAILY active Not Available Not Available No t Available topiramate 50 mg tablet TAKE 1 TABLET BY MOUTH TWICE DAILY IN THE MORNING AND AT BEDTIME active Not Available Not Available No t Available mirtazapine 7.5 mg tablet TAKE 1 TABLET BY MOUTH AT BEDTIME active Not Available Not Available No t Available Dry Eye Relief 1 %-0.2 %-0.2 % drops PLACE 1 DROP IN EACH EYE FOUR TIMES DAILY NEEDED active Not Available Not Available No t Available FreeStyle Lite Strips USE DIRECTED TO TEST BLOOD SUGAR FOUR TIMES DAILY active Not Available Not Available Not Available Lantus Solostar U-100 Insulin 100 unit/mL (3 mL) subcutaneous pen INJECT 38 UNITS SUBCUTANEOU SLY AT BEDTIME active Not Available Not Available No t Available FreeStyle [place] Lite kit TEST BLOOD SUGAR FOUR TIMES DAILY DIRECTED active Not Available Not Available Not Available GaviLyte-G 236 gram-22.74 gram-6.74 gram-5.86 gram oral solution MIX WITH WATER AND DRINK 240 ML (8 OUNCES) DIRECTED THE DAY BEFORE COLONOSCOPY active Not Available Not Available Not Available Refresh P.M. 57.3 %-42.5 % eye ointment APPLY A SMALL AMOUNT IN EACH EYE AT BEDTIME active Not Available Not Available No t Available BD Ultra-Fine Deedee Pen Needle 32 gauge x USE DIRECTED FOUR TIMES DAILY active Not Available Not Available No t Available Vitamin D3 50 mcg (2,000 unit) capsule TAKE 1 CAPSULE BY MOUTH EVERY MORNING active Not Available Not Available No t Available Lubrifresh PM 83 %-15 % eye ointment APPLY IN EACH EYE DAILY NEEDED FOR DRY EYES active Not Available Not Available No t Available TRUEplus Lancets 33 gauge USE DIRECTED TO TEST BLOOD SUGAR FOUR TIMES DAILY active Not Available Not Available Not Available Trulicity 1.5 mg/0.5 mL subcutaneous pen injector INJECT ONE PEN (=1.5MG) SUBCUTANEOU SLY ONCE A WEEK DIRECTED active Not Available Not Available No t Available UltiGuard SafePack-Pen Needle 32 gauge x 5/32 USE FOUR TIMES DAILY DIRECTED active Not Available Not Available Not Available FreeStyle Sue 2 Sensor kit USE DIRECTED TO TEST BLOOD SUGAR CHANGE EVERY 14 DAYS active Not Available Not Available No t Available FreeStyle Sue 2 [place] USE DIRECTED TO TEST BLOOD SUGAR DAILY IN THE MORNING active Not Available Not Available No t Available Ozempic 1 mg/dose (4 mg/3 mL) subcutaneous pen injector INJECT 1 MG SUBCUTANEOU SLY ONCE A WEEK active Not Available Not Available No t Available Mounjaro 5 mg/0.5 mL subcutaneous pen injector INJECT ONE PEN (=5MG) SUBCUTANEOU SLY ONCE A WEEK DIRECTED active Not Available Not Available No t Available Mounjaro 2.5 mg/0.5 mL subcutaneous pen injector INJECT ONE PEN (=2.5MG) SUBCUTANEOU SLY ONCE A WEEK DIRECTED active Not Available Not Available No t Available Vitals Date Recorded Oxygen saturation Oxygen saturation in Arterial blood by Pulse oximetry Heart rate Respiratory rate Body temperature Systolic blood pressure Diastolic blood pressure Provider Name and Address Organization Details Last Updated DateTime 3 98 % 98 % 97 /min 16 /min 97.7 [degF] 153 mm[Hg] 96 mm[Hg] Not Available [facility] production 3 19:01:02 Date Recorded Oxygen saturation Oxygen saturation in Arterial blood by Pulse oximetry Body height Heart rate Body temperature Body weight Respiratory rate Systolic blood pressure Diastolic blood pressure Provider Name and Address Organization Details Last Updated DateTime 5 97 % 97 % 157.48 cm 86 /min 98.4 [degF] 14093.8 g 14 /min 139 mm[Hg] 86 mm[Hg] Not Available [facility] production 5 09:54:17 Date Recorded Body temperature Heart rate Respiratory rate Oxygen saturation Oxygen saturation in Arterial blood by Pulse oximetry Systolic blood pressure Diastolic blood pressure Provider Name and Address Organization Details Last Updated DateTime 5 97.4 [degF] 81 /min 16 /min 99 % 99 % 120 mm[Hg] 77 mm[Hg] Not Available [facility] production 5 13:38:18 Social History None recorded. Functional Status None recorded. Mental Status None recorded. Family History Nothing Reported. Medical History No medical history recorded. Gynecological HistoryNo gynecological history recorded. Obstetrics History GPAL:G 0 P 0 0 0 0 Past Encounters Encounter ID Performer Location Encounter Start Date Encounter Closed Date Diagnosis/Indication Diagnosis SNOMED-CT Code Diagnosis ICD10 Code Diagnosis Note [id number] Julia Mcfarlane MD Main - [address] [phone] 02/12/2023 17:23:02 02/12/2023 23:50:46 Edema of lower extremity 588200832 R60.0 [id number] [facility] [address] [place] [phone] 07/07/2024 09:41:31 07/09/2024 18:46:38 Urinary symptoms [id number] R39.9 [id number] Abbie Alberto MD [facility] - [address] [phone] 08/08/2024 13:38:14 08/09/2024 17:17:11 Viral upper respiratory tract infection [id number] J06.9 Evaluation in the field was performed by my conveyor system operator colleague, as noted above, I provided real-time direction and supervisio n for this visit. 73yo F PMHx HTN, DM p/w intermitte nt cough and nasal congestion x 1 month. Denies fevers, chest pain, hemoptysis , wt loss. Not using any OTCs. On conveyor system operator eval VS wnl, exam with clear lungs and clear rhinorrhea . Most likely recurrent viral URI vs allergic rhinitis. Will trial nasal fluticason e and loratadine , if no improvemen t recommend PCP vs ENT eval. PCP: please f/up with pt to ensure symptoms improved with treatment We discussed the diagnostic uncertaint y of home visits and the risk associated with this. In this case, the patient and I felt this to be an acceptable and reasonable amount of risk given the benefit of avoiding an ED visit. We discussed the need to seek care urgently/e mergently in the setting of any new or worsening serious symptoms, shortness of breath, cough, chest pain, fever. Health Concerns Section Related Observation LastModified by Organization Detai ls LastModified Time None Recorded Concern Status LastModified by Organization Details LastModified Time None Recorded Advance Directives Directive None Recorded Payers Encounter Date Sequence Insurance Name Policy Number Policy Costello Covered Member ID Costello Member ID Guarantor Name 02/12/2023 1 [facility] DOS ON OR AFTER 2022 - DUAL ELIGIBLE - CARE HOME OPTIONS AND ONE CARE (MEDICARE REPLACEMENT/ADV ANTAGE - HMO) Snehal Ramos [id number] Snehal Ramos 07/07/2024 1 [facility] - DOS ON OR AFTER 2022 - DUAL ELIGIBLE - CARE HOME OPTIONS AND ONE CARE (MEDICARE REPLACEMENT/ADV ANTAGE - HMO) Snehal Ramos [id number] Snehal Ramos 08/08/2024 1 [facility] - DOS ON OR AFTER 2022 - DUAL ELIGIBLE - CARE HOME OPTIONS AND ONE CARE (MEDICARE REPLACEMENT/ADV ANTAGE - HMO) Snehal Ramos [id number] Snehal Ramos Notes Date Note Type Note Provider Name and Address Organization Details Recorded Time 02/12/2023 text/html HPI: Hx: Depression and Fibromyositis in addition to that listed. Patient with complaints of increased swelling of both legs ankle to knees that are warm to touch not weeping. Patient without fever. Legs are painful and unable to get shoes on 2-3 days duration. No shortness of breath or chest pain. Seen in [facility] ED 02/08/23 for weakness and chronic pain. Per their note no LE edema or calf pain at that time. .................... .................... .................... .................... .................... .................... .................... . CRC Nursing Assessment: Comments: CRC RN DID NOT NEED FURTHER INFO .................... .................... .................... .................... .................... .................... .................... . Regulatory Affairs Coordinator Note From Cari Sanchez: Community Regulatory Affairs Coordinator Mulu Sanchez CCA1 dispatched to a [facility] for a 72 yof C/O BLE edema and pain. Upon arrival, the pt was ambulatory, COLLINS X4, in no apparent distress. She stated that her lower legs had become swollen and painful over the last 2-3 days. She stated that her PCP had discontinued her HTN meds 2-3 months prior, but that she had taken the water pill in the past, years ago. She denied ever having lower leg edema before, and stated that she had some baseline pain from neuropathy, but increased pain since the edema started, stating a pressure. She denied headache, vision changes, cough, sore throat, CP, SOB, SOB on exertion, abd pain, N/V/D, or urinary S/S. Lung sounds clear throughout. Both legs below the knee showed 1-2 pitting edema, w/ the left leg slightly larger. No redness or heat, no tenderness. CMS present and equal. C consulted; 12 lead acquired-results in insted. Pt was given 20 mg PO furosemide, w/ instructions to follow up w/ Insted and her PCP. The pt was instructed to monitor her S/S for any changes, and red flags were discussed. .................... .................... .................... .................... .................... .................... .................... . Disposition: Juliocesar Mcfarlane MD [address] [facility],[address], [place], [phone], [employer] 02/12/2023 23:56:08 07/07/2024 text/html HPI: Patient reports several days of increased leg swelling bilaterally reports pitting edema at time of all. Also with urinary complaints that include urge and frequency. .................... .................... .................... .................... .................... .................... .................... . CRC Nurse Triage Notes (Yamel Michel - RN): Chief Complaints: Swelling, Urinary symptoms PMH: Hypertension, Diabetes Mellitus Type 2 Comments: CRC RN did not require any additional information to process this visit. Regulatory Affairs Coordinator Organization Information for Tramaine Zapata [employer] Name: [facility] Address: [address] [place] [address], [place] [address], Union Organizer: Ramon Montalvo MD CLIA No.: [id number] Regulatory Affairs Coordinator POC Test Results from BennyTramaine H?REL JULIAN Urine Dipstick (10:12:18) Urine leukocytes: + MARIO ALBERTO Urine nitrites: - NIT Urine urobilinogen: 0.2 URO Urine protein: + PRO Urine pH: 6.5 pH Urine blood: - BLO Urine specific gravity: 1.015 SG Urine ketones: ++ KET Urine bilirubin: - AMAN Urine glucose: - GLU epoc (10:26:27) pH: 7.403 pH units pCO2: 34.6 mmHg pO2: 60.7 mmHg Na: 142 mmol/L K: 4.0 mmol/L iCa: 1.19 mmol/L Cl: 110 mmol/L TCO2: 20.8 mEq/L Hct: 39 % Hb: 13.4 g/dL Glu: 241 mg/dL Lac: 1.76 mmol/L Cr: 0.75 mg/dL BUN: 14 mg/dL A .................... .................... .................... .................... .................... .................... .................... . Regulatory Affairs Coordinator Note From Tramaine Zapata: Patient alert and oriented seated on couch. 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 Patient complains of increase frequency of urination, inability to empty bladder, left leg and arm, swelling times three days. Complains of left leg pain. Patient states she? s had a UTI in the last year. Patient reports swelling is new for her. Patient denies changes in appetite. Patient denies burning at site of urination, painful urination, or any other pain or complaints. Patient denies: nausea, vomiting, diarrhea, chest pain, weakness, difficulty breathing, headache or other.Patient pink warm dry secondary exam unremarkable positive full sentences negative increase work breathing lung sounds clear good skin TURGOR. Abdomen soft non-tender left leg left arm, swollen with good circulation. As noted in pictures.Epoc, UA to [facility] orders urine culture to [facility]. Advises patient to follow up with primary care physician. Red flags, patient education discussed. .................... .................... .................... .................... .................... .................... .................... . [facility] Consulted: Kwaku Topete .................... .................... .................... .................... .................... .................... .................... . Disposition: Fulfilled Kwaku Topete MD [address] [place] [address],[address], [place], [phone], [employer] 07/09/2024 11:47:12 08/08/2024 text/html HPI: Patient with several days or URI symptoms now today with chills. Taking Tylenol only no acute SOB, .................... .................... .................... .................... .................... .................... .................... . CRC Nurse Triage Notes (Earl Enriquez - RN): Chief Complaints: Common cold symptoms, Cough, Fever/chills PMH: Hypertension, Diabetes Mellitus Type 2 PMH Reviewed at 08/08/2024:53 Allergies Reviewed at 08/08/2024:53 Comments: HPI reviewed by this RN , no further information needed to process visit -Whitney Enriquez RN .................... .................... .................... .................... .................... .................... .................... . Regulatory Affairs Coordinator Note From Adrian Rowe: This 73-year-old female with a history including but not limited to HTN, HLD, DM type II, neuropathy, depression requested a visit today to address approximately one month of dry cough and rhinorrhea. Patient states she is been using DayQuil and NyQuil with moderate relief and feels that her symptoms are slowly improving. Patient denies any history of chronic lung disease and denies any chest pain, shortness of breath, dyspnea on exertion, headaches, fevers, nausea, vomiting, diarrhea. Patient presents awake and alert, in no acute distress and speaking full sentences. Her vital signs are reasonably stable and she is afebrile. Nonfocal neurological exam. Normal gait. No sinus tenderness. Normal oropharynx exam. Lungs are clear throughout auscultation. Abdomen is soft, nontender, nondistended. No lower extremity edema. I provided education on the patient's prescriptions as well as additional OTC/supportive care therapy. I recommend she stay well hydrated and present to the emergency department for any new or worsening severe symptoms such as chest pain, severe shortness of breath, high fever, altered mental status. The patient was given the opportunity to ask questions and is readable to this plan. .................... .................... .................... .................... .................... .................... .................... . [facility] Consulted: Abbie Alberto .................... .................... .................... .................... .................... .................... .................... . Disposition: Fulfilled Abbie Alberto MD [address] [place] [address],[address], [place], [phone], [facility] 08/08/2024 14:18:43 OBGyn Episode No OBEpisode recorded.
--- NOTE | 2024-10-09 08:43 | ED_ITS ---
HPI - General Adult General Chief complaint: General Medical Stated complaint: DIZZY,WEAK,BP 146/102 PER EMS Time Seen by Provider: 10/09/24 08:27 Source: patient, EMS and technology intern Mode of arrival: EMS Limitations: no limitations History of Present Illness ED Provider: DR. Fletcher HPI narrative: 73-year-old female PMH significant for left Polanco's palsy, DM, mood disorder, HLD, Parkinson's, HTN, presented for evaluation of multiple complaints after had 1 episode of dizziness weakness and unbalanced with lightheadedness when she stood up going to the bathroom that is resolved shortly after patient declined any pass out or syncopal episode, no fall, no head injury, currently patient is not feeling dizzy. Patient also is complaining of dysuria with frequency urination. Complains of bilateral lower extremity swelling and edema left more than right. No recent travel, patient lives home alone had 4 hours daily [employer] help and consider herself active at home with no periods of prolonged immobilization. Related Data Home Medications ?Medication ?Instructions ?Recorded ?Confirmed cetirizine 10 mg tablet 10 mg PO DAILY 12/09/22 05/25/24 insulin aspart U-100 100 unit/mL 1 sliding scale dose subcut TIDAC 12/09/22 05/25/24 (3 mL) subcutaneous pen (Novolog FlexPen U-100 Insulin aspart) insulin glargine 100 unit/mL (3 30 unit subcut BEDTIME 12/09/22 05/25/24 mL) subcutaneous pen (Lantus Solostar U-100 Insulin) acetaminophen 650 mg 650 mg PO Q6H PRN pain 12/16/22 05/25/24 tablet,extended release mirtazapine 15 mg tablet 15 mg PO BEDTIME 12/16/22 05/25/24 albuterol sulfate 90 mcg/actuation 2 puff inhalation Q4H PRN 02/13/23 05/25/24 aerosol inhaler Shortness Of Breath Or Wheezing citalopram 20 mg tablet 20 mg PO DAILY 02/13/23 05/25/24 gabapentin 300 mg capsule 300 mg PO TID 02/13/23 05/25/24 atorvastatin 20 mg tablet 20 mg PO BEDTIME 11/06/23 05/25/24 tirzepatide 2.5 mg/0.5 mL 2.5 mg subcut TU 11/06/23 05/25/24 subcutaneous pen injector (Felipe) amlodipine 2.5 mg tablet 5 mg PO DAILY 05/25/24 05/25/24 Previous Rx's ?Medication ?Instructions ?Recorded ascorbic acid (vitamin C) 500 mg 500 mg PO DAILY 30 days #30 tabs 11/19/22 tablet (Vitamin C) aspirin 81 mg tablet,delayed 81 mg PO DAILY 30 days #30 tabs 11/19/22 release blood sugar diagnostic (FreeStyle #150 ea 11/19/22 Lite Strips) cholecalciferol (vitamin D3) 50 50 mcg PO DAILY 30 days #30 caps 11/19/22 mcg (2,000 unit) capsule clonazepam 0.5 mg tablet 0.5 mg PO DAILY PRN Anxiety 30 11/19/22 days #30 tabs lancets 33 gauge (TRUEplus Lancets) #100 ea 11/19/22 metformin 500 mg tablet,extended 500 mg PO BID #60 tabs 11/19/22 release 24 hr pen needle, diabetic 32 gauge x #50 ea 11/19/22 topiramate 50 mg tablet 50 mg PO BID 30 days #60 tabs 11/19/22 carbidopa 25 mg-levodopa 100 mg 1 tab PO TID #90 tabs 03/04/24 tablet amoxicillin 500 mg-potassium 1 tab PO BID #14 tabs 10/09/24 clavulanate 125 mg tablet (Augmentin) Allergies Allergy/AdvReac Type Severity Reaction Status Date / Time COVID-19 vacc, bv (Orig, Allergy Severe Swelling Verified 10/09/24 08:13 Omicron BA.4/5) (Pfizer) [From Pfizer COVID Bival(12y up)(PF)] homosalate [From Coppertone] Allergy Intermediate RASH, itchy Verified 10/09/24 08:13 octinoxate [From Coppertone] Allergy Intermediate RASH, itchy Verified 10/09/24 08:13 oxybenzone [From Coppertone] Allergy Intermediate RASH, itchy Verified 10/09/24 08:13 pioglitazone Allergy Unknown Unknown Verified 10/09/24 08:13 pollen extracts Allergy Unknown Unknown Verified 10/09/24 08:13 diovan Allergy Unknown rash Uncoded 05/15/23 03:09 Review of Systems 2 Review of Systems: All other systems are reviewed and are negative Constitutional: Reports as per HPI and Reports no additional constitutional complaints Eyes: Reports as per HPI and Reports no additional eye complaints Reports system reviewed and no additional complaints, except as documented Cardiovascular: Reports as per HPI and Reports no additional cardiovascular complaints Respiratory: Reports as per HPI and Reports no additional respiratory complaints Gastrointestinal: Reports as per HPI and Reports no additional gastrointestinal complaints Genitourinary: Reports no additional female genitourinary complaints Musculoskeletal: Reports no additional musculoskeletal complaints Skin/Breast: Reports system reviewed and no additional complaints, except as docu Psychiatric: Reports no additional psychiatric complaints Endocrine: Reports no additional endocrine complaints Hematologic/Lymphatic: Reports no additional hematologic/lymphatic complaints Allergic/Immunologic: Reports no additional allergic/immunologic complaints Reports system reviewed and no additional complaints, except as documented and Reports Abnormal speech present [facility] Past Medical History Medical History Polanco's palsy Elevated hemoglobin A1c Left arm weakness Numbness and tingling in left arm Left shoulder pain Thoracic outlet syndrome Neck pain Left-sided weakness Colon cancer screening Microscopic hematuria Lung cancer Vitamin D deficiency Depression Fibromyalgia Obesity (BMI 30-39.9) Diabetic polyneuropathy associated with type 2 diabetes mellitus Hypertension halfway (current) use of insulin Dyslipidemia Diabetes type 2, uncontrolled Surgical History H/O: hysterectomy Family History Family History Father Osteoporosis Mother Stroke Cancer Social History Social History Household Members: None Housing: Apartment Do you presently have visiting nurse or other home services: Yes Unable to assess alcohol history related to: Unable to respond Alcohol intake: former Patient Tobacco Use Status: Never used Tobacco e-Cigarette/Vaping Use: Never Used Second Hand Smoke Exposure: No Substance Use Type: Marijuana Advance Directives: Yes Advance Directives on File: Yes Advance Directives Date on File: 11/17/23 service: No Sexual orientation: Straight/Heterosexual Physical Exam ED Vital Signs: Vital Signs - 24 hr 10/09/24 08:11 10/09/24 09:21 10/09/24 09:21 Temperature 97.7 F Pulse Rate 91 89 91 Respiratory Rate 16 Blood Pressure 148/77 H 165/88 H 170/79 H Pulse Oximetry 99 Oxygen Delivery Method Room Air 10/09/24 09:21 10/09/24 11:06 Temperature Pulse Rate 93 80 Respiratory Rate 18 Blood Pressure 150/80 H 150/80 H Pulse Oximetry 98 Oxygen Delivery Method Room Air BMI result Body Mass Index 32.4 Vital signs have been reviewed and appear to be correct. Blood pressure elevated. Heart rate normal. Respiratory rate normal. Temperature normal. Oxygen saturation normal. Appearance: Alert. Oriented X3. No acute distress. Head: Normal external exam. Normocephalic. Atraumatic. No Montoya signs noted. No raccoon eyes noted Eyes: PERRLA. EOMI. Conjunctiva and sclera normal. Eyelids normal. ENT: TM's Normal. Pharynx normal. Uvula midline. Moist mucous membranes. No trismus noted. No drooling noted. No muffled voice noted. Neck: Normal inspection. Neck supple. FROM. No adenopathy. Thyroid Normal. No meningeal signs. No neck mass noted. CVS: Normal heart rate and rhythm. Heart sound normal. No murmurs noted. Pulses normal throughout. Respiratory: No respiratory distress. Painless inspiration. Breath sounds normal. No wheezes/rales/rhonchi noted. Chest nontender. No accessory muscle usage noted or decreased air movement noted. Abdomen: Soft and nontender. Bowel sounds normal in all 4 quadrants. No distention noted. No organomegaly noted. No visible injury noted. Back: No CVA tenderness. Full range of motion noted. Skin: Skin warm and dry. Normal skin color. Normal skin turgor. No rashes/lesions/lacerations noted. Extremities: No lower extremity edema. Extremities exhibit normal range of motion. Extremities nontender. Neuro: Oriented X 3. Cranial nerve exam: II-XII are grossly intact, pre-existing left facial droop secondary to chronic left Polanco's palsy. No motor deficit. No sensory deficit. Reflexes normal. Course Reevaluation(s) Reevaluation #1: 73-year-old female came in for evaluation of multiple complaints. 1. Dizziness in the morning that it resolved now patient has no symptoms now. With normal orthostatic vital signs. 2. Frequency urination and dysuria, UA is unremarkable. 3. Dry cough, chest x-ray is showing bilateral atelectasis versus infiltrate will cover with Z-Prashant. 4. Chronic back pain to use Tylenol PRN. CT on 03/02/24 showed no aneurysmal dilatation. 5. Bilateral lower extremity edema, ultrasound reveals no DVT, patient is not showing sign of CHF. Time: 11:32 Medical Decision Making Differential Diagnosis Differential Diagnoses: The differential diagnosis associated with the presentation includes (Orthostatic hypotension, dizziness, dehydration, electrolyte derangement, severe anemia, UTI, AAA.) Admission/Observation Consideration of admission/observation: Escalation of care including admission/observation considered Lab Data [facility] Lab Attestation statement: I reviewed the patient's lab results. 10/09/24 09:57 10/09/24 09:57 Labs: Lab Results 10/09/24 10/09/24 Range/Units 09:15 09:57 WBC 6.6 (4.8-10.8) X10*3/uL RBC 3.90 L (4.20-5.50) X10*6/uL Hgb 12.5 (12.0-16.0) g/dl Hct 38.0 (37.0-47.0) % MCV 97.4 (80.0-98.0) fL MCH 32.1 (27.0-33.0) pg MCHC 32.9 (31.0-35.0) g/dl RDW 13.5 (11.0-16.0) % Plt Count 212 (160-400) X10*3/uL MPV 11.5 (9.4-12.3) fL Immature Gran % (Auto) 0.5 H (0.0-0.4) % Neut % (Auto) 62.3 (45-73) % Lymph % (Auto) 31.0 (20-40) % Dickson % (Auto) 5.4 (2-11) % Eos % (Auto) 0.6 (0-4) % Baso % (Auto) 0.2 (0-2) % Lymph # (Auto) 2.1 (1.2-4.9) X10*3/uL Dickson # (Auto) 0.4 (0.1-1.2) X10*3/uL Eos # (Auto) 0.0 (0.0-0.4) X10*3/uL Baso # (Auto) 0.0 (0.0-0.2) X10*3/uL Abs Immat Gran (auto) 0.03 (0.00-0.03) X10*3/uL Absolute Neuts (auto) 4.1 (2.0-8.3) x10*3/uL Absolute Nucleated RBC 0.000 (0.0-0.012) X10*3/uL Nucleated RBC % (auto) 0.0 (0.0-0.2) /100WBC Sodium 141 (135-145) mmol/L Potassium 4.9 (3.3-5.1) mmol/L Chloride 113 H (96-108) mmol/L Carbon Dioxide 21 L (22-29) mmol/L Anion Gap 12 (12-20) BUN 14 (9-16) mg/dL Creatinine 0.82 (0.5-1.4) mg/dL Estim Creat Clear Calc 66.6 Estimated GFR > 60 Random Glucose 189 H (60-115) mg/dL Calcium 9.1 (8.4-10.2) mg/dL Total Bilirubin 0.5 (0.0-1.0) mg/dL Direct Bilirubin 0.2 (0.0-0.5) mg/dL AST 31 (5-31) U/L ALT 17 (0-31) U/L Alkaline Phosphatase 62 (39-117) U/L Troponin I High Sens 4.0 (<3.5-17.0) ng/L B-Natriuretic Peptide 36 (<100) pg/mL Total Protein 7.3 (6.5-8.0) g/dL Albumin 3.7 (3.5-5.0) g/dL Lipase 16 (8-78) U/L Urine Color Yellow Urine Appearance Clear Urine pH 8.0 (5.0-9.0) Ur Specific Cornell 1.015 (1.005-1.025) Urine Protein Negative (Neg-Trace) mg/dL Urine Glucose (UA) Negative (Negative) mg/dL Urine Ketones Negative (Negative) mg/dL Urine Blood Negative (Negative) Urine Nitrite Negative (Negative) Ur Leukocyte Esterase Negative (Negative) Urine RBC 0-2 (0-2) /HPF Urine WBC 0-5 (0-5) /HPF Ur Squamous Epith Cells 0-2 (0-2) /HPF Urine Bacteria None Seen (None Seen) Hyaline Casts 0-2 (0-2) /LPF Influenza Type A (PCR) NEGATIVE (Negative) Influenza Type B (PCR) NEGATIVE (Negative) RSV RNA Qual (PCR) NEGATIVE (Negative) SARS-CoV-2 RNA (RT-PCR) NEGATIVE (Negative) Independent Interpretation I performed an independent interpretation of an: Plain X-Ray (Small hazy left basilar atelectasis/infiltrate.) Radiology Impression Discussion of test interpretation with radiology: I have reviewed the radiologist's reading. Discharge Plan Discharge Clinical Impression: Dizziness Patient Disposition: Home, Self-Care Instructions: Dizziness (ED) Prescriptions: New amoxicillin-pot clavulanate [Augmentin] 500-125 mg tablet 1 tab PO BID Qty: 14 0RF No Action clonazepam 0.5 mg tablet 0.5 mg PO DAILY PRN (Reason: Anxiety) 30 Days Qty: 30 0RF (DME) FreeStyle Lite Strips Strip See Rx Instructions .ROUTE .MEDSUPPLY Qty: 150 11RF Rx Instructions: 4 times a day aspirin 81 mg tablet,delayed release (DR/EC) 81 mg PO DAILY 30 Days Qty: 30 0RF ascorbic acid (vitamin C) [Vitamin C] 500 mg Tablet 500 mg PO DAILY 30 Days Qty: 30 0RF metformin 500 mg tablet extended release 24 hr 500 mg PO BID Qty: 60 0RF topiramate 50 mg tablet 50 mg PO BID 30 Days Qty: 60 0RF cholecalciferol (vitamin D3) 50 mcg (2,000 unit) capsule 50 mcg PO DAILY 30 Days Qty: 30 0RF (DME) pen needle, diabetic 32 gauge x 5/32 needle See Rx Instructions subcut .MEDSUPPLY Qty: 50 0RF Rx Instructions: As directed (DME) lancets [TRUEplus Lancets] 33 gauge misc See Rx Instructions .ROUTE .MEDSUPPLY Qty: 100 0RF Rx Instructions: As directed test blood sugar 4 times a day cetirizine 10 mg tablet 10 mg PO DAILY insulin aspart U-100 [Novolog FlexPen U-100 Insulin] 100 unit/mL (3 mL) insulin pen 1 sliding scale dose subcut TIDAC insulin glargine [Lantus Solostar U-100 Insulin] 100 unit/mL (3 mL) insulin pen 30 unit subcut BEDTIME citalopram 20 mg tablet 20 mg PO DAILY albuterol sulfate 90 mcg/actuation Hfa Aerosol Inhaler 2 puff INHALATION Q4H PRN (Reason: Shortness Of Breath Or Wheezing) gabapentin 300 mg capsule 300 mg PO TID atorvastatin 20 mg tablet 20 mg PO BEDTIME Mounjaro 2.5 mg/0.5 mL pen injector 2.5 mg subcut TU carbidopa-levodopa 25-100 mg Tablet 1 tab PO TID Qty: 90 0RF amlodipine 2.5 mg tablet 5 mg PO DAILY acetaminophen 650 mg tablet extended release 650 mg PO Q6H PRN (Reason: pain) mirtazapine 15 mg tablet 15 mg PO BEDTIME Referrals: Shine Mcmanus MD [Primary Care Provider] - Print Language: Romanian
[2024-10-09 09:24] LABS: Appearance Urine Clear; Color Urine Yellow; Glucose Urine UA Negative (Negative); Leukocyte Esterase Urine Negative (Negative); Nitrite Urine Negative (Negative); Specific Gravity - Urine 1.015 (1.005-1.025); Urine Blood Negative (Negative); Urine Ketones Negative (Negative); Urine Protein Negative (Neg-Trace)
[2024-10-09 09:29] LABS: Bacteria Urine None Seen (None Seen); Hyaline Casts Urine 0-2 /LPF (0-2); RBC Urine 0-2 /HPF (0-2); Squamous Epithelial Cell Urine 0-2 /HPF (0-2); WBC Urine 0-5 /HPF (0-5)
[2024-10-09 10:03] LABS: MANUAL DIFF FLAG NO
[2024-10-09 10:07] LABS: Basophils Percent Auto 0.2 % (0-2); Eosinophils Percent Auto 0.6 % (0-4); Hemoglobin 12.5 g/dl (12.0-16.0); Imm Gran Abs Auto 0.03 X10*3/uL (0.00-0.03); Imm Gran Pct Auto 0.5 % (0.0-0.4); Lymphocytes Absolute Auto 2.1 X10*3/uL (1.2-4.9); Mean Corpuscular HGB Conc 32.9 g/dl (31.0-35.0); Mean Corpuscular Hemoglobin 32.1 pg (27.0-33.0); Mean Corpuscular Volume 97.4 fL (80.0-98.0); Mean Platelet Volume 11.5 fL (9.4-12.3); Monocytes Absolute Auto 0.4 X10*3/uL (0.1-1.2); Monocytes Percent Auto 5.4 % (2-11); Neutrophils Absolute Auto 4.1 x10*3/uL (2.0-8.3); Neutrophils Percent Auto 62.3 % (45-73); Platelet Count 212 X10*3/uL (160-400); Red Cell Distribution Width 13.5 % (11.0-16.0); White Blood Count 6.6 X10*3/uL (4.8-10.8)
[2024-10-09 10:19] LABS: Alanine Aminotransferase 17 U/L (0-31); Albumin Level 3.7 g/dL (3.5-5.0); Alkaline Phosphatase 62 U/L (39-117); Anion Gap 12 (12-20); Aspartate Amino Transferase 31 U/L (5-31); Bilirubin Direct 0.2 mg/dL (0.0-0.5); Bilirubin Total 0.5 mg/dL (0.0-1.0); Blood Urea Nitrogen 14 mg/dL (9-16); Calcium 9.1 mg/dL (8.4-10.2); Carbon Dioxide 21 mmol/L (22-29); Chloride 113 mmol/L (96-108); Creatinine Clr Calc Pharmacy 66.6; Estimated Glomerular Filt Rate > 60; Glucose Random 189 mg/dL (60-115); Lipase 16 U/L (8-78); Potassium 4.9 mmol/L (3.3-5.1); Sodium 141 mmol/L (135-145); Total Protein 7.3 g/dL (6.5-8.0)
[2024-10-09 10:23] LABS: B Type Natriuretic Peptide 36 pg/mL (<100)
[2024-10-09 10:44] LABS: Influenza A PCR NEGATIVE (Negative); Influenza B PCR NEGATIVE (Negative); Resp Syncy Virus RNA Qual PCR NEGATIVE (Negative); SARS COV2 PCR INHOUSE NEGATIVE (Negative)
--- NOTE | 2024-10-09 11:09 | PC.NURSE ---
Report received from SATYA Moore. Taken over care at this time.
--- NOTE | 2024-10-09 12:02 | PC.NURSE ---
Pt. previously informed RN and shot lighter Calin, that she does not have transport back home, pt. has been trying to reach out to [employer], but states [employer] told me not to call her on the weekend. Attempted to call emergency number at this time and no answer.
--- NOTE | 2024-10-09 13:32 | PC.NURSE ---
Attempted to help pt to commode, after reaching for arm, pt. yells do not touch me, you're hurting me, and kept swerving and c/o dizziness, RN kept offering bedpan since pt. is here for dizziness. Pt. refused, manager technical training came to help and communicate pt. to help on commode. Pt. able to use commode, and apologized to RN for helping her. Pt. giving a sandwich and drink. Pt.denies any c/o pain or distress.
== END 2024-10-09 16:52 | disposition home or self-care (01) ==
PROVIDERS: Emergency Provider Emergency Medicine; PCP Internal Medicine
DX: R42 Dizziness and giddiness (principal); R60.0 Localized edema; R05.9 Cough, unspecified; R30.0 Dysuria; R35.0 Frequency of micturition; Z03.818 Encounter for observation for suspected exposure to other biological agents ruled out; E11.9 Type 2 diabetes mellitus without complications; I10 Essential (primary) hypertension; E78.5 Hyperlipidemia, unspecified; Z79.4 Long term (current) use of insulin; Z79.02 Long term (current) use of antithrombotics/antiplatelets; Z79.82 Long term (current) use of aspirin
CPT/HCPCS: 0241U; 71045; 80048; 80076; 81001; 83690; 83880; 84484; 85025; 93005; 93970; 99284

== ENCOUNTER → 2024-10-09 08:14 | Outpatient (BNV) | payer OTHER, SELFPAY | PROVIDERS: Emergency Provider Emergency Medicine; PCP Internal Medicine; Visit Provider Internal Medicine | DX: R94.31 Abnormal electrocardiogram [ECG] [EKG] (principal); R42 Dizziness and giddiness | CPT/HCPCS: 93010 ==

== ENCOUNTER → 2024-10-09 09:26 | Outpatient (BNV) | payer OTHER, SELFPAY | PROVIDERS: Emergency Provider Emergency Medicine; PCP Internal Medicine; Visit Provider Radiology Diagnostic Radiology | DX: R22.43 Localized swelling, mass and lump, lower limb, bilateral (principal); R42 Dizziness and giddiness | CPT/HCPCS: 71045; 93970 ==

== ENCOUNTER 2025-01-20 20:28 | Emergency (ER) | payer OTHER, SELFPAY ==
--- NOTE | ~2025-01-20 | CT_ITS ---
CLINICAL HISTORY: ?AMS CT Head without contrast. CT angiography head and neck with contrast. 3D Postprocessing. Comparison: CT/VT/SR - CT ANGIO HEAD NECK STROKE - 05/25/24 14:[address]/SR - CT HEAD WITHOUT IV CONTRAST STROKE - 05/25/24 14:28 EST Findings: HEAD CT: No intra-axial mass, midline shift, hydrocephalus, or acute hemorrhage. There is atrophy-like change and white matter disease. The visualized paranasal sinuses and mastoid air cells are normal. The orbits are within normal limits. There is no acute fracture. HEAD AND NECK CTA: Aortic arch and cervical great vessels are patent. Intracranial arteries are patent. No aneurysm, dissection, or occlusion. The previously described small right C7 internal carotid aneurysm is not seen on the current examination. No abnormal intracranial enhancement. The visualized thyroid gland is unremarkable. No cervical mass or fluid collection. Lung apices clear. No acute fracture. IMPRESSION: 1. Unremarkable head CT. 2. Patent head and neck CTA. This document has been electronically signed by: Erin Miles MD on 01/21/2025 17:00:23
--- NOTE | ~2025-01-20 | XR_ITS ---
CLINICAL HISTORY: ABD pain 1 view abdomen Comparison: None provided Findings: Moderate stool burden throughout the colon and rectum. No bowel obstruction. No pneumoperitoneum or pneumatosis. No abnormal calcifications. No acute fractures. IMPRESSION: Moderate stool burden throughout the colon and rectum. No bowel obstruction. This document has been electronically signed by: Tommy Delgadillo MD on 01/20/2025 22:32:20
[2025-01-20 20:36] VITALS: BP 148/78; PULSE 86; O2SAT 96
[2025-01-20 20:39] VITALS: BP 134/66; PULSE 87; RESP 18; TEMP 36.7; O2SAT 97; BMI 32.0
--- OUTSIDE RECORDS SUMMARY | 2025-01-20 21:12 | XMS_ITS | Data Portability ---
Author Organization [facility], [facility] Address [address] [place] [address] Care Team Providers Care Lathe Operator Contact Lens Name Role Phone [facility] OTHER [phone] HIM [facility] OTHER Assessment Encounter Date Assessment Date Assessment [...] assessment and plan as documented by the membership director. I provided real-time medical direction for this encounter and was immediately available to provide additional phone-based assistance as needed. History as noted in EMR and by membership director. I would add / emphasize: Patient seen for report of increased urination and leg swelling. instructional technology instructor used for entirety of visit. AVSS and well-appearing with slight lower extremity swelling on exam. No shortness of breath chest pain orthopnea. Urinalysis not suggestive of urinary tract infection will check culture, [id number]-lj-[id number] BMP without acute life-threatening metabolic abnormality or [...] None recorded. Lab culture, urine 2024 025 [facility] (Centralized Electronic Ordering - All Locations), Patient Can Go To The Location Of Their Choice, [address] 20:05:49 urinalysis, dipstick 2024 025 [facility], [address] [place] [address], [id number] 17:26:29 BMP, serum or plasma 2024 025 [facility], [address] [place] [address], [id number] 17:20:25 Referral None recorded. Procedures None recorded. Surgeries None recorded. Imaging None recorded. Medication Orders fluticasone propionate 50 mcg/actuati on nasal spray,suspe nsion 2024 025 [facility], [address] [place] [address], [id number], 5 13:59:23 loratadine 10 mg tablet 2024 025 [facility], [address] [place] [address], [id number], 5 08:43:30 Patient TargetsNo targets recorded. Patient InstructionsNo instructions recorded. Reason for Referral None Reported. Results Created Date Observation Date Name Description Value Unit Range Abnormal Flag Note LastModifiedBy Organization Detail LastModifiedTime 07/07/1907/09/2024 URINE CULTU RE,CO MPREH ENSIV E urine culture,comp rehensive Final report Not Available [facility] ([facility]) [address] [facility], [place], [address], 07/09/2024 20:05:49 01/02/20 25 07/09/2024 URINE CULTU RE,CO MPREH ENSIV E result 1 COMMEN T Mixed uroge nital giuseppe 25,00 0-50, 000 colon y formi ng units per mL Not Available [facility] ([facility]) [address] [facility], [place], [address], 07/09/2024 20:05:49 Result Notes None recorded. Medical Equipment None Reported. Allergies Allergen ID Allergen Name Allergen Category Reaction Reaction Severity Criticality Documentation Date Start Date Code Code System Note Provider Name and Address Organization Details Recorded Time 72069 lisinopri l medicatio n Not available Not available Not available 07/07/2024 64339 RxNorm Not Available [facility] - production 5 09:03:53 54622 valsartan medicatio n Not available Not available Not available 07/07/2024 54322 RxNorm Not Available [facility] - production 5 09:03:53 39116 pioglitaz one medicatio n Not available Not available Not available 07/07/2024 94997 RxNorm Not Available [facility] - production 5 09:03:53 Medications Name Sig Start Date Stop Date Status Note LastModified by Organization Details LastModified Time Prescription - Renewal active Not Available Not Available No t Available medbox status USE DIRECTED active Not Available [...] day by oral route for 30 days. 02/03/ 2025 active Not Available Not Available Not Avai [...] Available Not Available No t Available [employer] [place] Lite kit TEST BLOOD SUGAR FOUR TIMES [...] Ultra-Fine Deedee Pen Needle 32 gauge x / USE DIRECTED FOUR TIMES DAILY active Not [...] Available No t Available [employer] Sue 2 [place] USE DIRECTED TO TEST BLOOD SUGAR DAILY [...] Body temperature Body weight Respiratory rate Systolic And Diastolic Provider Name and Address Organization Details Last Updated DateTime 5 97 % 97 % 157.48 cm 86 /min 98.4 [degF] 24680.8 g 14 /min 139/86 mm[Hg] Not Available [facility] - production 5 09:54:17 Date Recorded Body temperature Heart rate Respiratory rate Oxygen saturation Oxygen saturation in Arterial blood by Pulse oximetry Systolic And Diastolic Provider Name and Address Organization Details Last Updated DateTime 5 97.4 [degF] 81 /min 16 /min 99 % 99 % 120/77 mm[Hg] Not Available [facility] [employer] - production 5 13:38:18 Date Recorded Body height Respiratory rate Heart rate Body temperature Oxygen saturation Oxygen saturation in Arterial blood by Pulse oximetry Body weight Systolic And Diastolic Provider Name and Address Organization Details Last Updated DateTime 5 157.48 cm 14 /min 80 /min 98 [degF] 98 % 98 % 22135.8 g 118/72 mm[Hg] Not Available [employer] - production 5 09:17:37 Date Recorded Oxygen saturation Oxygen saturation in Arterial blood by Pulse oximetry Heart rate Respiratory rate Body temperature Systolic And Diastolic Provider Name and Address Organization Details Last Updated DateTime 3 98 % 98 % 97 /min 16 /min 97.7 [degF] 153/96 mm[Hg] Not Available [employer] - production 3 19:01:02 Social History None recorded. Functional Status None recorded. Mental Status None recorded. Family History Nothing Reported. Medical History No medical history recorded. Gynecological HistoryNo gynecological history recorded. Obstetrics History GPAL:G 0 P 0 0 0 0 Past Encounters Encounter ID Performer Location Encounter Start Date Encounter Closed Date Diagnosis/Indication Diagnosis SNOMED-CT Code Diagnosis ICD10 Code Diagnosis Note [id number] Julia Mcfarlane MD [facility] [address] [place] [address] [phone] 02/12/2023 17:23:02 02/12/2023 23:50:46 Edema of lower extremity 762481780 R60.0 [id number] Kwaku Topete MD Main - [facility] [address] [place] [address] [phone] 07/07/2024 09:41:31 07/09/2024 18:46:38 Urinary symptoms [id number] R39.9 [id number] Abbie Alberto MD Main - [facility] [address] [place] [phone] 08/08/2024 13:38:14 08/09/2024 17:17:11 Viral upper respiratory tract infection 882753681 J06.9 Evaluation in the field was performed by my membership director colleague, as noted above, I provided real-time direction and supervisio n for this visit. 73yo F PMHx HTN, DM p/w intermitte nt cough and nasal congestion x 1 month. Denies fevers, chest pain, hemoptysis , wt loss. Not using any OTCs. On membership director eval VS wnl, exam with clear lungs [...] shortness of breath, cough, chest pain, fever. [id number] Jerzy Warner MD Main - [facility] [address] [place] [address] [phone] 11/24/2024 09:11:58 11/25/2024 11:22:38 Allergic conjunctivitis of bilateral eyes [id number] 44993 H10.13 As noted, we were called to see this patient regarding concerns of pink eye x 1 mo. Evaluation in the field was performed by my membership director colleague, as noted above, I provided real-time direction and supervisio n for this visit. The evaluation revealed mild conjunctiv al injection, no alarm features (vision loss, severe pain, etc.), and normal VS. Impression :Allergic conjunctiv itis Plan:Reass uranceCan increase zyrtec to BIDrec'd OTC olopatadin e (patady) drops Health Concerns Section Related Observation LastModified by Organization Detai ls LastModified Time None Recorded Concern Status LastModified by Organization Details LastModified Time None Recorded Advance Directives Directive None Recorded Payers Insurance Date Sequence Insurance Name Policy Number Policy Costello Covered Member ID Costello Member ID Guarantor Name 11/24/2024 1 [employer] - DOS ON OR AFTER 2022 - DUAL ELIGIBLE - LONGTERM OPTIONS AND ONE CARE (MEDICARE REPLACEMENT/ADV ANTAGE - HMO) Snehal Ramos [id number] Snehal Ramos Notes Date Note Type Note [...] of breath or chest pain. Seen in [facility] 02/08/23 for weakness and chronic pain. Per their note no LE edema or calf pain at that time. .................... .................... .................... .................... .................... .................... .................... . CRC Nursing Assessment: Comments: CRC RN DID NOT NEED FURTHER INFO .................... .................... .................... .................... .................... .................... .................... . Grain Broker And Market Operator Note From Cari Sanchez: Community Grain Broker And Market Operator Mulu Sanchez CCA1 dispatched to a [facility] for a 72 yof C/O [...] heat, no tenderness. CMS present and equal. [facility] consulted; 12 lead acquired-results in insted. Pt was given 20 mg PO furosemide, w/ instructions to follow up w/ [facility] and her PCP. The pt was instructed to monitor her S/S for any changes, and red flags were discussed. .................... .................... .................... .................... .................... .................... .................... . Disposition: Fulfilled Julia Mcfarlane MD [address] [place] [address],[address], [place], [phone], [employer] 02/12/2023 23:56:08 07/07/2024 text/html HPI: Patient reports [...] any additional information to process this visit. Grain Broker And Market Operator Organization Information for Tramaine Zapata [employer] Legal Name: [facility] Address: [address] [place] [address], [place] [address], Security Test Engineer: Ramon Montalvo MD [place] No.: [id number] Grain Broker And Market Operator POC Test Results from Tramaine Zapata Urine Dipstick (10:12:18) Urine leukocytes: + MARIO [...] .................... .................... .................... .................... .................... .................... . Grain Broker And Market Operator Note From Tramaine Zapata: Patient alert and oriented seated on couch. 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 Patient complains of increase frequency of urination, inability to empty bladder, left leg and arm, swelling times three days. Complains of left leg pain. Patient states she s had a UTI in the last [...] circulation. As noted in pictures.Epoc, [place] [facility] [place] [place] culture [facility]. Advises patient to follow up with primary care physician. Red flags, patient education discussed. .................... .................... .................... .................... .................... .................... .................... . [facility] Consulted: Kwaku Topete .................... .................... .................... .................... .................... .................... .................... . Disposition: Fulfilled Kwaku Topete MD [address] [facility],[address], [place], [address], CATHY RG 07/09/2024 11:47:12 08/08/2024 text/html HPI: Patient with [...] .................... .................... .................... .................... .................... .................... . Grain Broker And Market Operator Note From Adrian Rowe: This 73-year-old female [...] .................... .................... .................... .................... .................... .................... . [facility] Consulted: Abbie Alberto .................... .................... .................... .................... .................... .................... .................... . Disposition: Juliocesar Alberto MD [address] [facility],[address], [place], [phone], CATHY RG 08/08/2024 14:18:43 11/24/2024 text/html HPI: No missileman needed as this copywriter speaks Wolof. Call returned to Snehal Ramos via [employer] Inside Sales Associate as this copywriter is remote to triage below. Reports having some redness, itching and discharge from bilateral eyes x 1 month. Pt using OTC allergy meds with no relief. Per pt this morning eyes were stuck together. Pt wants rx ai eye drops. Advised needs to be seen to determine if consistent with bacterial conjunctivitis or allergies. Pt unable to come into our walk in center. Agrees to [facility] for eval. Confirmed demographics and allergies. .................... .................... .................... .................... .................... .................... .................... . CRC Nurse Triage Notes (Eileen Sahu): Reason For Request: Eye complaint Chief Complaints: Eye Complaint PMH: Hypertension, Diabetes Mellitus Type 2, Parkinson's Disease PMH Reviewed at 11/23/2024 - 11:46 Allergies Reviewed at 11/23/2024 - 11:46 Comments: Reviewed HPI, Evaluation for eye complaint, r/o infection. 11/23/24- attempted to call member multiple times at 20:35 with no answer. Left VM. Satnam Jordan RN .................... .................... .................... .................... .................... .................... .................... . Grain Broker And Market Operator Note From Tramaine Zapata: Patient alert and oriented complains of itching burning eyes times 30+ days. Patient reports no recent vision changes. Patient also complains of nasal congestion and sneezing. Patient uses cetirizine and Flonase daily. Patient denies pain, difficulty breathing, weakness, dizziness, nausea, vomiting, diarrhea, changes in appetite, fever, chills, or any other pain or complaint. Patient pink warm and dry secondary exam unremarkable, eyes pictured in documents. Some mild redness left eye, no swelling or discharge noted. Lung sounds clear negative increase work of breathing positive full sentences abdomen soft, non tender extremities unremarkable. [facility] advises patient to double dose of cetirizine, 12.5 mg x2 per day, continue Flonase and administer OTC eyedrop as directed. Patient should also consider changing to a different antihistamine. Patient demonstrates understanding of care and plan. Red flags, patient education discussed. .................... .................... .................... .................... .................... .................... .................... . [facility] Consulted: Ahsan Warner .................... .................... .................... .................... .................... .................... .................... . Disposition: Fulfilled Jerzy Warner MD [address] [facility],[address], [place], [address], [employer] - [employer]ATH[employer] CRYSTAL 11/25/2024 11:09:40 OBGyn Episode No OBEpisode recorded.
--- OUTSIDE RECORDS SUMMARY | 2025-01-20 21:12 | XMS_ITS | Encounter Summary ---
Author Organization [employer] Address [address] [facility] [facility] [address] [place] [address] Care Team Providers Care Quarry Supervisor Open Pit Name Role Phone Shine Holt MD Primary Care Provide r Whit Rodriguez PharmD Unavailable [phone] Reason for Visit * Reason Onset Date Comments FYI 07/27/2024 Encounter Details Date Type Department Care Team ([facility] st Contact Info) Description 07/27/2024 Telephone [facility] [address] [place] [address] Shine Holt MD [address] [place] [address] FYI Social History Tobacco Use Types Packs/Day Years Used Date Smoking Tobacco: Never Passive Smoke Exposure: Never Smokeless Tobacco: Never Alcohol Use Standard Drinks/Week Comments Never 0 (1 standard drink = 0.6 oz pur e alcohol) Alcohol Answer Date Recorded Frequency of Alcohol Consumption Not on file 04/21/2024 Average Number of Drinks Not on file 024 Frequency of Binge Drinking Not on file 04/05 Score 0 04/21/2024 Depression Answer Date Recorded Patient Health Questionnaire-9 Score 0 04/21/2024 Patient Health Questionnaire-9 Score 0 04/21/2024 Last PHQ-9: Questionnaire Data Not on file 1 Housing Stability Answer Date Recorded What is your housing situation today? I have horace espinoza 03/28/[address] you li ve. Do you have problems with any of the following? None of the above 03/28/2024 Food Insecurity Answer Date Recorded Within the past 12 months, y ou worried that your food would run out before you got money to buy more: Sometimes True 2023 Within the past 12 months,th e food you bought just didn't last and you didn't have enough money to get more: Sometimes True 03/28/2024 Transportation Answer Date Recorded In the past 12 months, has l ack of transportation kept you from medical appts, meetings, work or from getting things needed for daily living? No 03/28/2024 Utilities Answer Date Recorded In the past 12 months, has t he [employer], gas, oil or water company threatened to shut off services in your home? No 03/28/2024 Depression Answer Date Recorded Patient Health Questionnaire-2 Score 0 04/21/2024 Internet Access Answer Date Recorded Internet Access Q1 Yes 03/28/2024 Internet Access Q2 Not on file 03/28/2024 Comments Unknown Sex and Gender Information Value Date Recorded Sex Assigned at Female 05/05/2022 10:14 AM EDT Legal Sex Female 10:14 AM EDT Gender Identity Female 05/05/2022 10:14 AM EDT Sexual Orientation Choose not to disclose 2021 10:14 AM EDT documented as of this encounter Plan of Treatment Upcoming Encounters Date Type Department Care Team (Late st Contact Info) Description 03/16/2025 10:30 AM EDT [facility] [address] [place] [address] Shine Holt MD [address] [place] [address] 06/28/2025 10:30 AM EST Office [facility] OPTOM[facility] [address] [place] [address] Yaneth Gonzalez, OD [address] [place] [address] documented as of this encounter Goals Goal Patient Goal Type Associated Problems Recent Progress Patient-Stated? Author Blood Pressure < 140/90 Blood Pressure Hypertension 163/86(2023 1:25 PM EDT) No Whit Rodriguez, PharmD Hemoglobin A1c < 7.0 Result Component Type 2 diabetes mellitus with hyperglycemia, with long-term current use of insulin 9.9( 4 1:29 PM EDT) No Whit Rodriguez PharmD Note: Most recent A1c likely mis-represented as patient has been off anti-diabetic meds for >30 days. To be re-assessed in 3 months Keep fasting blood glucose between 70 and 130 Result Component Type 2 diabetes mellitus with hyperglycemia, with long-term current use of insulin No change(2022 11:50 AM EDT) No Whit Rodriguez PharmD Glucose < 180 Result Component Type 2 diabetes mellitus with hyperglycemia, with long-term current use of insulin 189( 5 9:57 AM EDT) No Whit Rodriguez PharmD documented as of this encounter Visit Diagnoses Not on filedocumented in this encounter Additional Health Concerns Assessment Noted Time PHQ-9 Depression Total Score: 0 04/21/20 24 1:26 PM EDT documented as of this encounter Care Teams Quarry Supervisor Open Pit Relationship Specialty Start Date End Date Shine Holt MD [address] [place] [id number] PCP - General Internal Medicine 03/30/14 Whit Rodriguez PharmD [address] [place] [address] Pharmacist Internal Medicine 10/06/22 Garrett Shah 12/11/22 documented as of this encounter
--- OUTSIDE RECORDS SUMMARY | 2025-01-20 21:12 | XMS_ITS | Clinical Summary ---
Author Organization [facility] Address [address] [facility] [address] [place] [phone] Phone Care Team Providers Care Counseling Director Name Role Phone Unknown, Unknown Primary Care Provider Hiren rivero Social History Tobacco Use Types Packs/Day Years Used Date Smoking Tobacco: Never Assessed Education Answer Date Recorded Are you interested in more education? Not on daniel e 11/16/2023 Are you concerned about learning? Not on file 11/16/2023 No 11/16/2023 No 11/16/2023 Digital Access Answer Date Recorded No 11/16/2023 No 11/16/2023 Reliable internet access at home? Not on file 11/16/2023 Device with a working camera? Not on file Comments Unknown Sex and Gender Information Value Date Recorded Sex Assigned at Not on file Legal Sex Female 10:54 AM EDT Gender Identity Not on file Sexual Orientation Not on file Plan of Treatment Health Maintenance Due Date Last Done Comments LIPID PANEL 1952 DEPRESSION SCREENING 1964 SMOKING Hx and SMOKELESS TOBACCO SCREENING 1965 HEPATITIS C SCREENING 1970 MAMMOGRAM 1992 COLOGUARD 1997 COLONOSCOPY 1997 COLORECTAL CANCER SCREENING 1997 FIT TEST 1997 FOBT 1997 SIGMOIDOSCOPY 1997 VIRTUAL COLONOSCOPY 1997 OSTEOPOROSIS SCREENING INITI AL (ONE-TIME) 2017 PNEUMOCOCCAL VACCINES (50+ years) (2 of 2 - PCV) 09/14/2018 09/14/2017, 04/13/2003 Adult Td,Tdap Booster 11/30/2023 11/29/2013 , 08/20/2000, 07/06/1989 COVID-19 VACCINE (3 - 2023-2 5 season) 2024 09/09/2021, 05/29/2021 ZOSTER VACCINES Completed 03/04/2022, 12/31/2021 RSV VACCINE Completed 11/12/2023 HEPATITIS A VACCINES Aged Out No long er eligible based on patient's age to complete this topic HIB VACCINES Aged Out No longer eligi ble based on patient's age to complete this topic MENINGOCOCCAL VACCINES (ACWY) Aged Out No longer eligible based on patient's age to complete this topic MENINGOCOCCAL VACCINES (B) Aged Out N o longer eligible based on patient's age to complete this topic Medical Devices Not on file Insurance [facility] MEDICARE [place] [id number] [facility] [place] [id number] [facility] MEDICARE REPLACEMENT ONE CARE MEDICARE REPLACEMENT [facility] MEDICARE REPLACEMENT [facility] ONE CARE MEDICARE REPLACEMENT [facility]PL[facility] Care Teams Counseling Director Relationship Specialty Start Date End Date Unknown, Unknown, PCP - General 04/27/18 Additional Source Comments The information contained in this document represents components of the legal health record. It is not the complete legal health record.[facility]
--- OUTSIDE RECORDS SUMMARY | 2025-01-20 21:12 | XMS_ITS ---
Author Organization [facility] on Care Team Providers Care 1St Grade Teacher Name Role Phone Analilia Russell Unavailable Unavailable Eileen Molina Unavailable Unavailable Cynthia Byers Unavailable Unavailable Herminia Adkins Unavailable Unavailable Sylvester Bagley Unavailable Unavailable Chelsey Mata Unavailable Unavailable Allergies and adverse reactions Code CodeSystem Substance Reaction Severity StartDate Concern Status 052477256 SNOMED CT Pollen Unknown 11/09/2023 active 81423 RXNORM Pioglitazone Severe 11/09/2023 active 09835 RXNORM Oxybenzone Severe 11/09/2023 active 20852 RXNORM Octinoxate (Octy l Methoxycinnamate) Moderate 11/09/2023 active 13194 RXNORM Homosalate Severe 11/09/2023 active 36543 RXNORM Diovan Unknown 11/09/2023 active COVID-19 (Inact whole virus) Vaccine (Eneida Cell) Swelling (code- 71549915, SNOMED CT) Severe 11/09/2023 active Care Team Name Role Address Phone Organization George Molina PCP [address] [facility], [place], [address], [place] (Office): : [facility] 11/09/2023 - 11/23/[address], [place], [address], [place] (Office): [facility] 11/09/2023 - 11/23/2023 Cynthia Byers [address] [place], [address], [place] (Office): [facility] 11/09/2023 - 11/23/2023 Herminia Adkins [address] [place], [address], [place] (Office): [facility] 11/09/2023 - 11/23/2023 Sylvester Bagley [facility] [place], [address], [place] (Office): [facility] 11/09/2023 - 11/23/2023 Chelsey Mata [address] [place], [address], [place]Office): : [facility] 11/09/2023 - 11/23/2023 Immunizations Immunization Status Vaccine Details Vaccine Code CodeSystem Date Notes Pneumococcal Polysaccharide Vaccine (PPSV23) completed pneumococcal polysaccharide vaccine, 23 valent 33 CVX created date: 4 administe red date: 8 Verified in DEIS. Pneumococcal Polysaccharide Vaccine (PPSV23) completed pneumococcal polysaccharide vaccine, 23 valent 33 CVX created date: 4 administe red date: 3 Verified in MIIS. TDAP( Tetanus/Diptheria /Perutssis) completed tetanus toxoid, reduced diphtheria toxoid, and acellular pertussis vaccine, adsorbed 115 CVX created date: 4 administe red date: 4 Verified in DEIS. SARS-COV-2 (COVID-19) completed SARS-COV-2 (COVID-19) vaccine, mRNA, spike protein, LNP, preservative free, 30 mcg/0.3mL dose Mfg: pfizer Step 2 of Multi-step with next step required 208 CVX created date: 4 administe red date: 2 Verified in MIIS. SARS-COV-2 (COVID-19) completed SARS-COV-2 (COVID-19) vaccine, mRNA, spike protein, LNP, preservative free, 30 mcg/0.3mL dose Mfg: CompassMD Step 1 of Multi-step with next step required 208 CVX created date: 4 administe red date: 1 Verified in MIIS. Shingrix completed zoster vaccine recombinant 187 CVX created date: 4 administe red date: 2 Verified in MIIS. Shingrix completed zoster vaccine recombinant 187 CVX created date: 4 administe red date: 2 Verified in MIIS. Prevnar 20 Pneumococcal conjugate (PCV20) cancelled Pneumococcal conjugate vaccine 20-valent (PCV20), polysaccharide VOW220 conjugate, adjuvant, preservative free 216 CVX created date: 4 consent date: 4 RSV, recombinant, protein subunit RSVpreF, adjuvant rec completed Respiratory syncytial virus (RSV), vaccine, recombinant, protein subunit RSV prefusion F, adjuvant reconstituted, 0.5 mL, preservative free lotNumber: [id number] expiry: 02/23/2025 Mfg: glasko Given 0.5 ml Right Deltoid intramuscularly 303 CVX created date: 4 consent date: 4 administe red date: 4 influenza, unspecified formulation completed influenza virus vaccine, unspecified formulation 88 CVX created date: 4 administe red date: 4 Verified in MIIS. COVID-19 vaccine, vector-nr, rS-Ad26, PF, 0.5 mL new SARS-COV-2 (COVID-19) vaccine, mRNA, spike protein, LNP, preservative free, ole-sucrose, 30 mcg/0.3 mL dose 309 CVX created date: 4 consent date: 4 Mental Status Section Date Assessment Total Score Description 11/23/2023 BIMS 15 cognitively int act CAM 0 No delirium ind icated PHQ-9 00 11/15/2023 BIMS 15 cognitively int act CAM 0 No delirium ind icated PHQ-9 00 Problems Problem # Description Date of onset Resolved Date Code CodeSystem Concern Status 1 CERVICALGIA 11/09/[address] active 2 ESSENTIAL (PRIMARY) HYPERTENSION 11/09/[address] active 3 FIBROMYALGIA 11/09/[address] acti ve 4 HEMIPLEGIA, UNSPECIFIED AFFECTING LEFT NONDOMINANT SIDE 11/09/[address] active 5 HYPERLIPIDEMIA, UNSPECIFIED 11/09/[address] active 6 MAJOR DEPRESSIVE DISORDER, RECURRENT, UNSPECIFIED 11/09/[address] active 7 OBESITY, UNSPECIFIED 11/09/[address] active 8 PAIN IN LEFT SHOULDER 11/09/[address] active 9 TYPE 2 DIABETES MELLITUS WITH DIABETIC NEUROPATHY, UNSPECIFIED 11/09/[address] active 10 URINARY TRACT INFECTION, SITE NOT SPECIFIED 11/09/[address] active Reason for Referral No Reasons for Referral Entered Social History Social History Observation Description Start Date End Date Code Code System Current Smoking Status Tobacco smoking consumption unknown 623761901 SNOMED CT Sex Assigned At Female 1950 94336-3 [facility] Gender Identity Vital Signs Code Code System Vitals Name Values and Units Timing Information 2339-0 [facility] Blood Sugar Fydzv=386.0 Units=mg/dL 11/23/2023 57724-7 [facility] Weight Uichk=681.1 Units=Lbs 9279-1 [facility] Respiratory Rate Value=16.0 Units=/m in 11/23/2023 8462-4 [facility] Blood Pressure-Diastolic Value=74 Un its=mmHg 11/23/2023 8480-6 [facility] Blood Pressure-Systolic Mqarj=172 Un its=mmHg 11/23/2023 8310-5 [facility] Body Temperature Value=97.9 Units= F 11/23/2023 8867-4 [facility] Heart rate Value=65.0 Units=/min 07227-8 [facility] O2 % BldC Oximetry Value=97.0 Units= % 11/23/2023 21771-8 [facility] Pain Level Value=0.0 11/23/2023 8302-2 [facility] Height Value=65.0 Units=Inches 11/10/2023
--- NOTE | 2025-01-20 21:33 | ED.GENADULT ---
HPI - General Adult General Chief complaint: General Medical Stated complaint: syncope Time Seen by Provider: 01/20/25 21:28 Source: patient Mode of arrival: EMS Limitations: no limitations History of Present Illness ED Provider: Related Data Home Medications ?Medication ?Instructions ?Recorded ?Confirmed cetirizine 10 mg tablet 10 mg PO DAILY 12/09/22 05/25/24 insulin aspart U-100 100 unit/mL 1 sliding scale dose subcut TIDAC 12/09/22 05/25/24 (3 mL) subcutaneous pen (Novolog FlexPen U-100 Insulin aspart) insulin glargine 100 unit/mL (3 30 unit subcut BEDTIME 12/09/22 05/25/24 mL) subcutaneous pen (Lantus Solostar U-100 Insulin) acetaminophen 650 mg 650 mg PO Q6H PRN pain 12/16/22 05/25/24 tablet,extended release mirtazapine 15 mg tablet 15 mg PO BEDTIME 12/16/22 05/25/24 albuterol sulfate 90 mcg/actuation 2 puff inhalation Q4H PRN 02/13/23 05/25/24 aerosol inhaler Shortness Of Breath Or Wheezing citalopram 20 mg tablet 20 mg PO DAILY 02/13/23 05/25/24 gabapentin 300 mg capsule 300 mg PO TID 02/13/23 05/25/24 atorvastatin 20 mg tablet 20 mg PO BEDTIME 11/06/23 05/25/24 tirzepatide 2.5 mg/0.5 mL 2.5 mg subcut TU 11/06/23 05/25/24 subcutaneous pen injector (Felipe) amlodipine 2.5 mg tablet 5 mg PO DAILY 05/25/24 05/25/24 Previous Rx's ?Medication ?Instructions ?Recorded ascorbic acid (vitamin C) 500 mg 500 mg PO DAILY 30 days #30 tabs 11/19/22 tablet (Vitamin C) aspirin 81 mg tablet,delayed 81 mg PO DAILY 30 days #30 tabs 11/19/22 release blood sugar diagnostic (FreeStyle #150 ea 11/19/22 Lite Strips) cholecalciferol (vitamin D3) 50 50 mcg PO DAILY 30 days #30 caps 11/19/22 mcg (2,000 unit) capsule clonazepam 0.5 mg tablet 0.5 mg PO DAILY PRN Anxiety 30 11/19/22 days #30 tabs lancets 33 gauge (TRUEplus Lancets) #100 ea 11/19/22 metformin 500 mg tablet,extended 500 mg PO BID #60 tabs 11/19/22 release 24 hr pen needle, diabetic 32 gauge x #50 ea 11/19/22 topiramate 50 mg tablet 50 mg PO BID 30 days #60 tabs 11/19/22 carbidopa 25 mg-levodopa 100 mg 1 tab PO TID #90 tabs 03/04/24 tablet amoxicillin 500 mg-potassium 1 tab PO BID #14 tabs 10/09/24 clavulanate 125 mg tablet (Augmentin) hydrochlorothiazide 12.5 mg tablet 12.5 mg PO QAM #10 tabs 01/20/25 Allergies Allergy/AdvReac Type Severity Reaction Status Date / Time COVID-19 vacc, bv (Orig, Allergy Severe Swelling Verified 01/20/25 20:57 Omicron BA.4/5) (Pfizer) (From Pfizer COVID Bival(12y up)(PF)) homosalate (From Coppertone) Allergy Intermediate RASH, itchy Verified 01/20/25 20:57 octinoxate (From Coppertone) Allergy Intermediate RASH, itchy Verified 01/20/25 20:57 oxybenzone (From Coppertone) Allergy Intermediate RASH, itchy Verified 01/20/25 20:57 pioglitazone Allergy Unknown Unknown Verified 01/20/25 20:57 pollen extracts Allergy Unknown Unknown Verified 01/20/25 20:57 diovan Allergy Unknown rash Uncoded 05/15/23 03:09 [facility] Past Medical History Medical History Polanco's palsy Elevated hemoglobin A1c Left arm weakness Numbness and tingling in left arm Left shoulder pain Thoracic outlet syndrome Neck pain Left-sided weakness Colon cancer screening Microscopic hematuria Lung cancer Vitamin D deficiency Depression Fibromyalgia Obesity (BMI 30-39.9) Diabetic polyneuropathy associated with type 2 diabetes mellitus Hypertension intermediate card tender (current) use of insulin Dyslipidemia Diabetes type 2, uncontrolled Surgical History H/O: hysterectomy Family History Family History Father Osteoporosis Mother Stroke Cancer Social History Social History Household Members: None Housing: Apartment Do you presently have visiting nurse or other home services: Yes Unable to assess alcohol history related to: Unable to respond Alcohol intake: never Patient Tobacco Use Status: Never used Tobacco Smoked in Last 30 Days: No e-Cigarette/Vaping Use: Never Used Second Hand Smoke Exposure: No Use of substances other than those prescribed or required for medical reasons: No Substance Use Type: Marijuana Advance Directives: Yes Advance Directives on File: Yes Advance Directives Date on File: 11/17/23 service: No Sexual orientation: Straight/Heterosexual Physical Exam ED Vital Signs: Vital Signs - 24 hr 01/20/25 20:39 01/20/25 23:23 Temperature 98.0 F 97.5 F Pulse Rate 87 86 Respiratory Rate 18 16 Blood Pressure 134/66 144/72 H Pulse Oximetry 97 97 Oxygen Delivery Method Room Air Room Air BMI result Body Mass Index 32.0 Medical Decision Making Lab Data 01/20/25 21:33 01/20/25 21:33 Labs: Lab Results 01/20/25 Range/Units 21:33 WBC 7.9 (4.8-10.8) X10*3/uL RBC 3.76 L (4.20-5.50) X10*6/uL Hgb 12.0 (12.0-16.0) g/dl Hct 34.9 L (37.0-47.0) % MCV 92.8 (80.0-98.0) fL MCH 31.9 (27.0-33.0) pg MCHC 34.4 (31.0-35.0) g/dl RDW 12.5 (11.0-16.0) % Plt Count 186 (160-400) X10*3/uL MPV 11.3 (9.4-12.3) fL Immature Gran % (Auto) 0.3 (0.0-0.4) % Neut % (Auto) 67.1 (45-73) % Lymph % (Auto) 26.2 (20-40) % [place] % (Auto) 5.4 (2-11) % Eos % (Auto) 0.9 (0-4) % Baso % (Auto) 0.1 (0-2) % Lymph # (Auto) 2.1 (1.2-4.9) X10*3/uL [place] # (Auto) 0.4 (0.1-1.2) X10*3/uL Eos # (Auto) 0.1 (0.0-0.4) X10*3/uL Baso # (Auto) 0.0 (0.0-0.2) X10*3/uL Abs Immat Gran (auto) 0.02 (0.00-0.03) X10*3/uL Absolute Neuts (auto) 5.3 (2.0-8.3) x10*3/uL Absolute Nucleated RBC 0.000 (0.0-0.012) X10*3/uL Nucleated RBC % (auto) 0.0 (0.0-0.2) /100WBC Sodium 140 (135-145) mmol/L Potassium 4.1 (3.3-5.1) mmol/L Chloride 115 H (96-108) mmol/L Carbon Dioxide 21 L (22-29) mmol/L Anion Gap 8 L (12-20) BUN 22 H (9-16) mg/dL Creatinine 0.97 (0.5-1.4) mg/dL Estim Creat Clear Calc 53.1 Estimated GFR 56 Random Glucose 196 H (60-115) mg/dL Calcium 8.4 D (8.4-10.2) mg/dL Total Bilirubin 0.3 (0.0-1.0) mg/dL AST 31 (5-31) U/L ALT 28 (0-31) U/L Alkaline Phosphatase 69 (39-117) U/L B-Natriuretic Peptide 30 (<100) pg/mL Total Protein 6.7 (6.5-8.0) g/dL Albumin 3.6 (3.5-5.0) g/dL Lipase 37 (8-78) U/L Discharge Plan Discharge Clinical Impression: Leg edema, Fibromyalgia Patient Disposition: Home, Self-Care Instructions: Leg Edema (ED) Additional Instructions: Continue take your medication Water pill as advised for 10 days and follow up with your PCP Keep your legs elevated Prescriptions: New hydrochlorothiazide 12.5 mg tablet 12.5 mg PO QAM Qty: 10 0RF No Action clonazepam 0.5 mg tablet 0.5 mg PO DAILY PRN (Reason: Anxiety) 30 Days Qty: 30 0RF (DME) FreeStyle Lite Strips Strip See Rx Instructions .ROUTE .MEDSUPPLY Qty: 150 11RF Rx Instructions: 4 times a day aspirin 81 mg tablet,delayed release (DR/EC) 81 mg PO DAILY 30 Days Qty: 30 0RF ascorbic acid (vitamin C) [Vitamin C] 500 mg Tablet 500 mg PO DAILY 30 Days Qty: 30 0RF metformin 500 mg tablet extended release 24 hr 500 mg PO BID Qty: 60 0RF topiramate 50 mg tablet 50 mg PO BID 30 Days Qty: 60 0RF cholecalciferol (vitamin D3) 50 mcg (2,000 unit) capsule 50 mcg PO DAILY 30 Days Qty: 30 0RF (DME) pen needle, diabetic 32 gauge x 5/32 needle See Rx Instructions subcut .MEDSUPPLY Qty: 50 0RF Rx Instructions: As directed (DME) lancets [TRUEplus Lancets] 33 gauge misc See Rx Instructions .ROUTE .MEDSUPPLY Qty: 100 0RF Rx Instructions: As directed test blood sugar 4 times a day cetirizine 10 mg tablet 10 mg PO DAILY insulin aspart U-100 [Novolog FlexPen U-100 Insulin] 100 unit/mL (3 mL) insulin pen 1 sliding scale dose subcut TIDAC insulin glargine [Lantus Solostar U-100 Insulin] 100 unit/mL (3 mL) insulin pen 30 unit subcut BEDTIME citalopram 20 mg tablet 20 mg PO DAILY albuterol sulfate 90 mcg/actuation Hfa Aerosol Inhaler 2 puff INHALATION Q4H PRN (Reason: Shortness Of Breath Or Wheezing) gabapentin 300 mg capsule 300 mg PO TID atorvastatin 20 mg tablet 20 mg PO BEDTIME Mounjaro 2.5 mg/0.5 mL pen injector 2.5 mg subcut TU carbidopa-levodopa 25-100 mg Tablet 1 tab PO TID Qty: 90 0RF amlodipine 2.5 mg tablet 5 mg PO DAILY amoxicillin-pot clavulanate [Augmentin] 500-125 mg tablet 1 tab PO BID Qty: 14 0RF acetaminophen 650 mg tablet extended release 650 mg PO Q6H PRN (Reason: pain) mirtazapine 15 mg tablet 15 mg PO BEDTIME Print Language: Chinese
[2025-01-20 21:38] LABS: Hematocrit 34.9 % (37.0-47.0); Hemoglobin 12.0 g/dl (12.0-16.0); Imm Gran Abs Auto 0.02 X10*3/uL (0.00-0.03); Imm Gran Pct Auto 0.3 % (0.0-0.4); Lymphocytes Absolute Auto 2.1 X10*3/uL (1.2-4.9); MANUAL DIFF FLAG NO; Mean Corpuscular HGB Conc 34.4 g/dl (31.0-35.0); Mean Corpuscular Hemoglobin 31.9 pg (27.0-33.0); Mean Corpuscular Volume 92.8 fL (80.0-98.0); NRBC Abs Auto 0.000 X10*3/uL (0.0-0.012); NRBC Pct Auto 0.0 /100WBC (0.0-0.2); Platelet Count 186 X10*3/uL (160-400); Red Blood Count 3.76 X10*6/uL (4.20-5.50); White Blood Count 7.9 X10*3/uL (4.8-10.8)
[2025-01-20 21:53] LABS: Alanine Aminotransferase 28 U/L (0-31); Albumin Level 3.6 g/dL (3.5-5.0); Alkaline Phosphatase 69 U/L (39-117); Anion Gap 8 (12-20); Aspartate Amino Transferase 31 U/L (5-31); Blood Urea Nitrogen 22 mg/dL (9-16); Calcium 8.4 mg/dL (8.4-10.2); Carbon Dioxide 21 mmol/L (22-29); Chloride 115 mmol/L (96-108); Creatinine Clr Calc Pharmacy 53.1; Estimated Glomerular Filt Rate 56; Lipase 37 U/L (8-78); Potassium 4.1 mmol/L (3.3-5.1); Sodium 140 mmol/L (135-145); Total Protein 6.7 g/dL (6.5-8.0)
[2025-01-20 21:58] LABS: B Type Natriuretic Peptide 30 pg/mL (<100)
[2025-01-20 23:23] VITALS: BP 144/72; PULSE 86; RESP 16; TEMP 36.4; O2SAT 97
[2025-01-21 02:56] VITALS: BP 141/57; PULSE 74; RESP 18; TEMP 36.1; O2SAT 99
--- NOTE | 2025-01-21 04:10 | PC.NURSE ---
Patient arrived to the ED overflow from the main ED at ~02:40 this morning. Pt is A&Ox4, primarily Armenian speaking. Video/tablet certified court interpreter was used for assessments and orienting this pt to the room with +teach back of call morales use. Pt's primary complaint is cramping pain in her bilateral lower legs which she attributed in discussion to her fibromyalgia. Covering provider Nelson Alexander notified of patient's c/o pain. PA orders placed for 1x tylenol and gabapentin per pt's home medications list. Pt was medicated per SEP with effectiveness pending at this time. Heat/ice offered though pt declined these. VSS. Pt denies chest pain or sob. +radial and dp pulses, +cms. Breathing is even and unlabored without distress on room air. Pt reports she uses a cane sometimes, or a walker at baseline when she is going out of the house. No cane present in belongings; pt presently ambulating with a walker with 1-assist for safety. Voiding in the bathroom. Pt currently up in the chair per her request; food writer educated patient on elevating her legs though pt declined elevation at this time. Chair alarm is on and chair locked in place. Call morales placed within reach and pt demonstrating use.
--- NOTE | 2025-01-21 04:10 | MHC.EDTECH ---
patient awake alert & oriented. taken to bathroom 1a with rolling walker to urinate. is independent with care. chair alarm on
[2025-01-21 07:40] VITALS: BP 118/70; PULSE 79; RESP 18; TEMP 36.2; O2SAT 100
--- NOTE | 2025-01-21 09:01 | PC.NURSE ---
patient had no diet order placed prior to RN arrival at 0700 despite case management order. patient never received breakfast, given pudding and water as requested while kitchen contacted for breakfast tray to be brought over. at aprox 0835 2nd call to kitchen was made for patient breakfast order. patient updated on breakfast dilemma with cook chief, patient states that last night on prior shift she requested dinner and never received tray.
--- NOTE | 2025-01-21 10:51 | PHA.MEDREC ---
Addendum entered by Jewell Kohli [facility] ED 01/21/25 11:04: [facility] reviewed. Spoke with provider med to let them know med rec was updated. Original Note: Pharmacy Consult ? Medication Reconciliation Pharmacy has completed the medication reconciliation. Spoke with patient through an automotive parts interpreter. Her Lantus dose is 39 units at bedtime and Novolog is used with a sliding scale with meals. She confirmed mirtazapine is 1.5 tabs at bedtime. She reports she is no longer taking Mounjaro 5 mg, last dose was 3 days ago, has been experiencing GI side effects and told her doctor she is no longer using. She last took her medications on 01/19.
[2025-01-21 11:12] VITALS: BP 180/96; PULSE 90; TEMP 36.1; O2SAT 99
--- NOTE | 2025-01-21 11:23 | PC.NURSE ---
at 1100 pt asked to go to the bathroom and was walking with pct and walker and had walked about 20 feet when she stopped walking and had a blank stare . eyes were open did not speak for approx 2 -3 minutes. the pt stood steady with pct at side and assisted to a chair where she continued to not speak and with a blank stare. skin was wpd. after a few minutes the pt stated that she was a little dizzy but offered nothing else as to how she was feeling. pt was then transferred to a w/c and was able to stand with good strength and sit back down in the w/c and brought back to the ED for eval
--- NOTE | 2025-01-21 12:53 | MHC.EDTECH ---
patient requested a purewick. Clean patient up reposition, and put on the pure wick on patient nurse aware.
[2025-01-21 13:22] LABS: Resp Syncy Virus RNA Qual PCR NEGATIVE (Negative); SARS COV2 PCR INHOUSE NEGATIVE (Negative)
[2025-01-21 13:45] LABS: Glucose, Whole Blood 290 mg/dL (60-115)
[2025-01-21 15:26] VITALS: BP 130/53; PULSE 77; RESP 18; O2SAT 99
[2025-01-21] MEDS: iohexoL 350 MG/ML 100 ML INFUS..BTL IV (15:30)
[2025-01-21 18:56] LABS: Glucose, Whole Blood 213 mg/dL (60-115)
[2025-01-21 22:06] VITALS: BP 155/83; PULSE 73; RESP 18; TEMP 36.4; O2SAT 97
[2025-01-21 23:19] LABS: Glucose, Whole Blood 303 mg/dL (60-115)
[2025-01-21] MEDS: Insulin Glargine,Hum.rec.anlog 100 UNIT/ML 10 ML VIAL 39 UNIT SUBCUT (23:29)
[2025-01-22 07:35] LABS: Glucose, Whole Blood 117 mg/dL (60-115)
[2025-01-22 08:02] VITALS: BP 118/68; PULSE 79; RESP 17; TEMP 36.1; O2SAT 99
[2025-01-22] MEDS: Aspirin Enteric Coated 81 MG TABLET.DR PO (08:21)
[2025-01-22 11:06] LABS: Glucose, Whole Blood 237 mg/dL (60-115)
--- NOTE | 2025-01-22 13:08 | MHC.CM.ED ---
Addendum entered by Alice Vila 01/22/25 13:28: [facility] is active with [facility] for [facility]. [facility] will add PT to services. Original Note: Received case management consult. Patient came to the ER due to syncope. Physical therapy eval is ordered but not available until tomorrow 01/23. Met with patient and math and sciences department chair in regards to discharge planning. Patient lives alone, ambulates with a walker/cane when necessary and has a WAREHOUSE SHIPPING ASSOCIATE. Copy of HCP Verified to be on file. Patient is not intersted in going to short term rehab. Patient would prefer to return home tomorrow with [facility]. Patient's WAREHOUSE SHIPPING ASSOCIATE can transport her home at 815am. Patient, Megan RN and Celestina ECHEVERRIA aware. Continue to monitor for d/c needs.
[2025-01-22 14:00] VITALS: BP 106/55; PULSE 78; RESP 17; TEMP 36.5; O2SAT 98
[2025-01-22 16:05] LABS: Glucose, Whole Blood 191 mg/dL (60-115)
[2025-01-22 19:19] VITALS: BP 108/52; PULSE 82; RESP 15; TEMP 36.7; O2SAT 95
--- NOTE | 2025-01-22 19:28 | PC.NURSE ---
this rn assumed care of pt, pt assisted to bathroom with stand by assist and walker, pt offers no complaints at this time and assisted into recliner, chair alarm in place
[2025-01-22 20:51] LABS: Glucose, Whole Blood 282 mg/dL (60-115)
[2025-01-22] MEDS: Insulin Glargine,Hum.rec.anlog 100 UNIT/ML 10 ML VIAL 39 UNIT SUBCUT (20:59)
--- NOTE | 2025-01-22 21:02 | PC.NURSE ---
pt medicated per sep, tolerated whole well with water
--- NOTE | 2025-01-22 21:07 | MHC.EDTECH ---
This supervisor malt house assisted patient in washing up and brushing her hair and teeth. Patient did well standing up using the walker. Patient wanted to continue staying on the recliner, chair alarm is hooked up to her.
--- NOTE | 2025-01-22 22:03 | PC.NURSE ---
pt assisted into bed at this time, bed alarm on and lights dimmed
[2025-01-23 00:05] VITALS: BP 158/76; PULSE 84; RESP 16; TEMP 36.2; O2SAT 100
[2025-01-23 05:45] VITALS: BP 106/59; PULSE 74; RESP 16; TEMP 36.1; O2SAT 99
[2025-01-23 07:06] LABS: Glucose, Whole Blood 63 mg/dL (60-115)
[2025-01-23 08:25] VITALS: BP 106/59
[2025-01-23] MEDS: Aspirin Enteric Coated 81 MG TABLET.DR PO (08:26)
[2025-01-23 09:07] VITALS: BP 106/59; PULSE 74; RESP 16; TEMP 36.1; O2SAT 99
== END 2025-01-23 09:08 | disposition home or self-care (01) ==
PROVIDERS: Emergency Provider Internal Medicine; PCP Internal Medicine
DX: R60.0 Localized edema (principal); M79.7 Fibromyalgia; M79.605 Pain in left leg; M79.604 Pain in right leg; R26.81 Unsteadiness on feet; E11.9 Type 2 diabetes mellitus without complications; E78.5 Hyperlipidemia, unspecified; E55.9 Vitamin D deficiency, unspecified; G20.C Parkinsonism, unspecified; F32.9 Major depressive disorder, single episode, unspecified; Z79.4 Long term (current) use of insulin; Z79.84 Long term (current) use of oral hypoglycemic drugs; Z79.899 Other long term (current) drug therapy; Z03.818 Encounter for observation for suspected exposure to other biological agents ruled out
CPT/HCPCS: 36415; 70496; 70498; 74018; 80053; 82947; 83690; 83880; 85025; 87637; 99285; Q9967

== ENCOUNTER → 2025-01-20 21:50 | Outpatient (BNV) | payer OTHER, SELFPAY | PROVIDERS: Emergency Provider Internal Medicine; PCP Internal Medicine; Visit Provider Radiology Diagnostic Radiology | DX: K59.00 Constipation, unspecified (principal) | CPT/HCPCS: 74018 ==

== ENCOUNTER → 2025-01-21 11:41 | Outpatient (BNV) | payer OTHER, SELFPAY | PROVIDERS: Emergency Provider Internal Medicine; PCP Internal Medicine; Visit Provider Nuclear Medicine | DX: R41.82 Altered mental status, unspecified (principal) | CPT/HCPCS: 70496; 70498 ==

== ENCOUNTER 2025-02-12 06:10 | Emergency (ER) | payer OTHER, SELFPAY ==
[2025-02-12] VITALS (10 sets, daily range): BP systolic 102–146; BP diastolic 40–81; PULSE 66–86; RESP 12–17; TEMP 36.4–37; O2SAT 98–100; BMI 37.0
--- NOTE | 2025-02-12 | ECG_ITS ---
Test Reason : SEIZURE Blood Pressure : */* mmHG Vent. Rate : 87 BPM Atrial Rate : 87 BPM P-R Int : 128 ms QRS Dur : 86 ms QT Int : 372 ms P-R-T Axes : 66 4 1 degrees QTcB Int : 447 ms Normal sinus rhythm Normal ECG When compared with ECG of 09-Oct-2024 08:16, No significant change was found Referred By: Generic ED Physician Electronically Signed By: ALBA POLLACK
--- NOTE | ~2025-02-12 | MR_ITS ---
CLINICAL HISTORY: ? CVA ct showed ? cva MR Brain without gadolinium Comparison: CT/REG/SR - CT ANGIO HEAD NECK - 02/12/25 10:[address] - CT ANGIO HEAD NECK - 02/12/25 10:00 EDT Findings: No restricted diffusion. No intra-axial mass or hemorrhage. Mild white matter disease, compatible with small-vessel ischemic change. No midline shift. No hydrocephalus. Vascular flow voids are intact. The orbits are normal. The sinuses and mastoid air cells are clear. No focal bone lesion. IMPRESSION: No acute infarct. This document has been electronically signed by: Taylor Akers MD on 02/12/2025 19:39:29
--- NOTE | ~2025-02-12 | CT_ITS ---
CLINICAL HISTORY: sevre rader CT Head without contrast. CT angiography head and neck with contrast. 3D Postprocessing. Comparison: 01/21/2025 Findings: HEAD CT: No intra-axial mass, midline shift, hydrocephalus, or acute hemorrhage. Apparent decreased simpson-white matter differentiation in the medial aspect of the right occipital lobe seems to be artifactual versus less likely due to acute infarct. Correlate clinically. Mild age-related cerebral hemispheric white matter ischemic changes. There is no sinus or mastoid fluid. The orbits are unremarkable. No skull fracture. HEAD AND NECK CTA: No significant arterial stenosis, aneurysm, dissection, or AVM. No abnormal intracranial enhancement. Patent dural venous sinuses. Lung apices clear. Spinal degenerative changes. No acute fracture. IMPRESSION: No acute intracranial hemorrhage. Apparent decreased simpson-white matter differentiation in the medial aspect of the right occipital lobe seems to be artifactual versus less likely due to acute infarct. Correlate clinically. No significant arterial stenosis, aneurysm, dissection, or AVM. This document has been electronically signed by: Janey Sanford MD on 02/12/2025 12:04:56
[2025-02-12 06:59] LABS: Glucose, Whole Blood 313 mg/dL (60-115)
--- NOTE | 2025-02-12 07:27 | PC.NURSE ---
Pt biba from home, per EMS pt holding the back of her head complaining of pain and high sugar noted. During triage pt noted to have left sided facial droop, weakness in all extremities, left lower leg swollen and warm to touch, and not able to answer all questions appropriately. MD made aware and came and assessed pt, no new orders at this time. Pt is alert to self, place but is unable to state date or year. Pt continues to state in fijian her brain hurts. Pt denies any injuries to head. Pt primarily fijian speaking only.
--- OUTSIDE RECORDS SUMMARY | 2025-02-12 07:36 | XMS_ITS | Clinical Summary ---
Author Organization [facility] Address [address] [facility] [address] [place] [phone] Phone Care Team Providers Care Auto Leasing Manager Name Role Phone Unknown, Unknown Primary Care [...] topic Medical Devices Not on file Insurance [facility] MEDICARE [place] [id number] [facility] [place] [place] [id number] [facility] MEDIC[facility] REPLACEMENT ONE CARE MEDICARE REPLACEMENT [facility] MED[facility] REPLACEMENT [facility] ONE CARE MEDICARE REPLACEMENT [facility] Care Teams Auto Leasing Manager Relationship Specialty Start Date End Date Unknown, Unknown, PCP - General 04/27/18 Additional Source Comments The information contained in this document represents components of the legal health record. It is not the complete legal health record.[facility]
--- OUTSIDE RECORDS SUMMARY | 2025-02-12 07:36 | XMS_ITS | Encounter Summary ---
Author Organization [facility] Address [address] [place] [address] Encounters * CPT with Medical instED at [employer] on 2025-01-31 Covid-19 (Inact Whole Virus) Vaccine (Eneida Cell)Drug IngredientSwellingHighAllergy11/09/2023ast Updates HomosalateDrug IngredientHighAllergy11/09/2023ast Updates Other Reaction(s): RASH, itchy LisinoprilDrug IngredientAngioedemaHighAllergy07/29/2021ast Updates OxybenzoneDrug IngredientHighAllergy11/09/2023ast Updates Other Reaction(s): RASH, itchy Octinoxate (Octyl Methoxycinnamate)Drug IngredientNot SpecifiedAllergy11/09/2023ast Updates PioglitazoneDrug IngredientNot SpecifiedAllergy02/28/2013Past Updates Patient with complaints of one month duration of increased swelling of lower legs and feet. No shortness of breath or chest pain. { reasonForRequest : , patientReports : , denies&quot ;:[], chiefComplaints : Extremity Pain , pmh : Hypertension, Diabetes Mellitus Type 2, Parkinson's Disease, Depression , allergies : Lisinopril,Valsartan, Pioglitazone , otherAllergies : valsa , painAssessment&quot ;: , visitOutcome : , additionalComments : HPI reviewed. } This 74-year-old female with a history including but not limited to Parkinson's disease, HTN, HLD, DM type II, depression requested a visit today to address two months of worsening bilateral lower extremity edema. States prior to two months ago her legs have never been swollen does not have a diagnosed CHF history. Patient denies any chest pain, shortness of breath, orthopnea, fevers, nausea, vomiting, diarrhea. Allergy list on file is confirmed. Patient presents awake and alert, in no acute distress and speaking full sentences. Her vital signsare reasonably stable and she is afebrile. Nonfocal neurological exam. Normal gait. Lungs are clearthroughout auscultation. Abdomen is soft, nontender, nondistended. +2 bilateral lower extremity pitting edema, no erythema or palpable cords. Unremarkable POC labs are uploaded. I treated with furosemide 40 mg IVP and potassium chloride ER 20 mEq PO. We discussed the diagnostic uncertainty of home visits and the risk associated with this. In this case, the patient and I felt this to be an acceptable and reasonable amount of risk given the benefitof avoiding an ED visit. I provided education on the patient's prescriptions, low sodium diet and the importance of PCP follow-up. I recommend she begin tracking her weight daily all and present to the emergency department for any new or worsening severe symptoms such as chest pain, severe shortness of breath, high fever, altered mental status. Patient was given the opportunity to ask questions and is agreeable to this plan. IV_(FLUIDS_AND/OR_MEDICATION), MEDICATION_IM, ORAL_MEDICATION, WOUND_CARE, ORTHOSTATIC_VITAL_SIGNS Written by Medical instED on 2025-01-31
[2025-02-12 07:56] LABS: Appearance Urine Clear; Glucose Urine UA 250 mg/dL (Negative); PH 6.5 (5.0-9.0); Specific Gravity - Urine <= 1.005 (1.005-1.025); UMIC TRIGGER UACC YES
[2025-02-12 08:02] LABS: UACC Culture Trigger YES
--- NOTE | 2025-02-12 08:05 | PC.NURSE ---
provider at bedside, just got US IV access
--- NOTE | 2025-02-12 08:11 | ED.HA ---
HPI - Headache General Chief Complaint: Headache Stated Complaint: high blood sugar, headache Time Seen by Provider: 02/12/25 07:44 Source: patient History of Present Illness HPI Narrative: This is a 74 years old female patient presented to the emergency department with a chief complaint of headache she states she got up to the bathroom and now she is complaining of headache there is no fever no vomiting. She has a history of left facial palsy, diabetes, mood disorder, Parkinson disease. She had a prior admission in May 29 with a left facial droop and left-sided weakness with negative workup including MRI MD elicited complaint: headache Onset (ago): hour(s) Onset description: gradually Location: band-like Severity: moderate Quality & Timing: aching Exacerbating factors: none Relieving factors: nothing Context: occurred at rest Associated symptoms: none Related Data Home Medications ?Medication ?Instructions ?Recorded ?Confirmed cetirizine 10 mg tablet 10 mg PO DAILY 12/09/22 01/21/25 insulin aspart U-100 100 unit/mL 1 sliding scale dose subcut TIDAC 12/09/22 01/21/25 (3 mL) subcutaneous pen (Novolog FlexPen U-100 Insulin aspart) insulin glargine 100 unit/mL (3 39 unit subcut BEDTIME 12/09/22 01/21/25 mL) subcutaneous pen (Lantus Solostar U-100 Insulin) mirtazapine 15 mg tablet 22.5 mg PO BEDTIME 12/16/22 01/21/25 albuterol sulfate 90 mcg/actuation 2 puff inhalation Q4H PRN 02/13/23 01/21/25 aerosol inhaler Shortness Of Breath Or Wheezing citalopram 20 mg tablet 20 mg PO DAILY 02/13/23 01/21/25 gabapentin 300 mg capsule 300 mg PO TID 02/13/23 01/21/25 atorvastatin 20 mg tablet 20 mg PO BEDTIME 11/06/23 01/21/25 amlodipine 2.5 mg tablet 5 mg PO DAILY 05/25/24 01/21/25 fluticasone propionate 50 1 spray intranasal DAILY PRN 01/21/25 01/21/25 mcg/actuation nasal Allergy Symptoms spray,suspension polyvinyl alcohol 1.4 % eye drops 1 drp ophthalmic (eye) QID PRN Dry 01/21/25 01/21/25 Eyes Previous Rx's ?Medication ?Instructions ?Recorded ascorbic acid (vitamin C) 500 mg 500 mg PO DAILY 30 days #30 tabs 11/19/22 tablet (Vitamin C) aspirin 81 mg tablet,delayed 81 mg PO DAILY 30 days #30 tabs 11/19/22 release blood sugar diagnostic (FreeStyle #150 ea 11/19/22 Lite Strips) cholecalciferol (vitamin D3) 50 50 mcg PO DAILY 30 days #30 caps 11/19/22 mcg (2,000 unit) capsule clonazepam 0.5 mg tablet 0.5 mg PO DAILY PRN Anxiety 30 11/19/22 days #30 tabs lancets 33 gauge (TRUEplus Lancets) #100 ea 11/19/22 metformin 500 mg tablet,extended 500 mg PO BID #60 tabs 11/19/22 release 24 hr pen needle, diabetic 32 gauge x #50 ea 11/19/22 topiramate 50 mg tablet 50 mg PO BID 30 days #60 tabs 11/19/22 carbidopa 25 mg-levodopa 100 mg 1 tab PO TID #90 tabs 03/04/24 tablet hydrochlorothiazide 12.5 mg tablet 12.5 mg PO QAM #10 tabs 01/20/25 Allergies Allergy/AdvReac Type Severity Reaction Status Date / Time COVID-19 vacc, bv (Orig, Allergy Severe Swelling Verified 02/12/25 07:26 Omicron BA.4/5) (Pfizer) (From Pfizer COVID Bival(12y up)(PF)) homosalate (From Coppertone) Allergy Intermediate RASH, itchy Verified 02/12/25 07:26 octinoxate (From Coppertone) Allergy Intermediate RASH, itchy Verified 02/12/25 07:26 oxybenzone (From Coppertone) Allergy Intermediate RASH, itchy Verified 02/12/25 07:26 pioglitazone Allergy Unknown Unknown Verified 02/12/25 07:26 pollen extracts Allergy Unknown Unknown Verified 02/12/25 07:26 diovan Allergy Unknown rash Uncoded 02/12/25 07:26 [facility] Past Medical History Medical History Polanco's palsy Elevated hemoglobin A1c Left arm weakness Numbness and tingling in left arm Left shoulder pain Thoracic outlet syndrome Neck pain Left-sided weakness Colon cancer screening Microscopic hematuria Lung cancer Vitamin D deficiency Depression Fibromyalgia Obesity (BMI 30-39.9) Diabetic polyneuropathy associated with type 2 diabetes mellitus Hypertension correction (current) use of insulin Dyslipidemia Diabetes type 2, uncontrolled Surgical History H/O: hysterectomy Family History Family History Father Osteoporosis Mother Stroke Cancer Social History Social History Household Members: None Housing: Apartment Do you presently have visiting nurse or other home services: Yes Unable to assess alcohol history related to: Unable to respond Alcohol intake: never Patient Tobacco Use Status: Never used Tobacco Smoked in Last 30 Days: No e-Cigarette/Vaping Use: Never Used Second Hand Smoke Exposure: No Use of substances other than those prescribed or required for medical reasons: No Substance Use Type: Marijuana Advance Directives: Yes Advance Directives on File: Yes Advance Directives Date on File: 11/17/23 Do you have a plan to hurt others: No Plan service: No Sexual orientation: Straight/Heterosexual Physical Exam Vital Signs: Vital Signs: Last Vital Signs Temp 98.6 F 02/12/25 17:45 Pulse 86 02/12/25 21:35 Resp 16 02/12/25 21:35 BP 146/71 H 02/12/25 21:35 Pulse Ox 100 02/12/25 21:35 O2 Del Method Room Air 02/12/25 21:35 BMI result Body Mass Index 37.0 Const: General: cooperative Nutritional Appearance: well nourished Orientation/consciousness: patient oriented x3 Limitations: no limitations HEENT: Head: Yes normal to inspection Ears: hearing grossly normal bilaterally General nose exam: Normal external nose present Face and sinus: Yes normal facial exam Mouth: Normal oral and palatal mucosa present Teeth and gingiva: dentition normal Neck: Neck: Yes normal visual inspection and Yes full ROM Resp: Effort & Inspection: normal respiratory effort Auscultation: clear to auscultation bilaterally Cardio: Jugular venous distension: no JVD Rate: regular rate GI: Inspection: Yes normal to inspection Palpation (GI): Soft to palpation and not firm Percussion: Yes normal to percussion Skin: General skin exam: no rashes or lesions noted and elasticity normal Lesions: no lesions Rashes: no rashes Neuro: Other: Awake alert oriented x3 she has a an old left facial droop. General: patient oriented x3 Course Reevaluation(s) Reevaluation #1: CTA head and neck shows decreased white matter in the right occipital area artifact versus acute infarct we will order MRI Time: 13:57 Reevaluation #2: At this point I am off shift case was signed out to Dr. Francisco MRI brain pending if negative she could go home Time: 16:12 Reevaluation #3: 02/12/2025, Mannie Francisco MD note 20:34 I assumed care of this patient from my colleague, Dr. Arnett at 13:57 hours pending result of the patient's MRI of the brain without gadolinium. Patient presents emergency department for evaluation of head pain which woke her up from sleep and confusion. Patient's CT angiogram head and neck revealed no intracranial hemorrhage but there was parent decreased simpson-white matter differential in the medial aspect of the right occipital lobe which could be due to artifact verses acute infarct therefore Dr. Arnett order an MRI. MRI of the brain revealed no acute findings which is reassuring. Patient states that she feels shaky and has a headache but it her symptoms improved with the treatment that she received in the emergency department (morphine, diazepam and IV Tylenol) . The patient was given a dose of Tylenol 650 mg orally. Patient will also be given food since she has not had anything to eat all day. I ask the nurse to see if the patient can ambulate to see if she can be discharged requires case management/PT. 22:03 According to nursing staff, the patient ambulated well and had no complaints while she was walking. The patient did receive morphine and concerned that she may be a fall risk therefore she will be transported home via ambulance. Medications Administered Discontinued Medications Generic Name Dose Route Start Last Admin Trade Name Ajith PRN Reason Stop Dose Admin Acetaminophen 975 mg 02/12/25 07:49 02/12/25 08:15 Acetaminophen 325 Mg Tablet PO 02/12/25 07:50 Not Given ONCE ONE Acetaminophen 650 mg 02/12/25 21:13 02/12/25 21:32 Acetaminophen 325 Mg Tablet PO 02/12/25 21:14 650 mg ONCE STA Administration Diazepam 2.5 mg 02/12/25 08:38 02/12/25 08:51 Diazepam 10 Mg/2 Ml Cartridge IVPUSH 02/12/25 08:39 2.5 mg STAT STA Administration Sodium Chloride 1,000 mls @ 999 mls/hr 02/12/25 08:15 02/12/25 09:14 Ns IVCONT 02/12/25 09:15 Infused .Q1H1M DIANA Infusion Acetaminophen 1,000 mg in 100 mls @ 400 mls/hr 02/12/25 08:14 02/12/25 08:40 Ofirmev IV 02/12/25 08:28 Infused ONCE ONE Infusion Insulin Human Lispro 5 unit 02/12/25 08:38 02/12/25 08:51 Insulin Lispro 100 Unit/Ml 3 Ml Vial SUBCUT 02/12/25 08:39 5 unit ONCE ONE Administration Iohexol 70 ml 02/12/25 10:25 02/12/25 10:26 Iohexol 350 Mg/Ml 100 Ml Infus..Btl IV 02/12/25 10:26 70 ml ONCE ONE Administration Morphine Sulfate 4 mg 02/12/25 09:52 02/12/25 10:28 Morphine Sulfate 4 Mg/Ml Cartridge IVPUSH 02/12/25 09:53 4 mg ONCE ONE Administration Protocol Medical Decision Making Lab Data 02/12/25 08:10 02/12/25 08:10 Labs: Lab Results 02/12/25 02/12/25 02/12/25 Range/Units 06:20 07:45 08:10 WBC 8.6 (4.8-10.8) X10*3/uL RBC 3.87 L (4.20-5.50) X10*6/uL Hgb 12.6 (12.0-16.0) g/dl Hct 37.3 (37.0-47.0) % MCV 96.4 (80.0-98.0) fL MCH 32.6 (27.0-33.0) pg MCHC 33.8 (31.0-35.0) g/dl RDW 12.8 (11.0-16.0) % Plt Count 236 D (160-400) X10*3/uL MPV 11.9 (9.4-12.3) fL Immature Gran % (Auto) 0.4 (0.0-0.4) % Neut % (Auto) 58.1 (45-73) % Lymph % (Auto) 33.3 (20-40) % Gates % (Auto) 6.1 (2-11) % Eos % (Auto) 1.9 (0-4) % Baso % (Auto) 0.2 (0-2) % Lymph # (Auto) 2.9 (1.2-4.9) X10*3/uL Gates # (Auto) 0.5 (0.1-1.2) X10*3/uL Eos # (Auto) 0.2 (0.0-0.4) X10*3/uL Baso # (Auto) 0.0 (0.0-0.2) X10*3/uL Abs Immat Gran (auto) 0.03 (0.00-0.03) X10*3/uL Absolute Neuts (auto) 5.0 (2.0-8.3) x10*3/uL Absolute Nucleated RBC 0.000 (0.0-0.012) X10*3/uL Nucleated RBC % (auto) 0.0 (0.0-0.2) /100WBC PT 11.0 (10.9-12.4) SEC INR 1.0 (0.9-1.1) Sodium 140 (135-145) mmol/L Potassium 4.5 (3.3-5.1) mmol/L Chloride 105 (96-108) mmol/L Carbon Dioxide 26 (22-29) mmol/L Anion Gap 14 (12-20) BUN 20 H (9-16) mg/dL Creatinine 1.04 (0.5-1.4) mg/dL Estim Creat Clear Calc 47.5 Estimated GFR 52 POC Glucose 313 H (60-115) mg/dL Random Glucose 366 H* (60-115) mg/dL Calcium 9.2 D (8.4-10.2) mg/dL Magnesium 2.2 (1.6-2.6) mg/dL Total Bilirubin 0.4 (0.0-1.0) mg/dL AST 21 (5-31) U/L ALT < 6 (0-31) U/L Alkaline Phosphatase 108 (39-117) U/L Total Protein 7.4 (6.5-8.0) g/dL Albumin 4.0 (3.5-5.0) g/dL Urine Color Yellow Urine Appearance Clear Urine pH 6.5 (5.0-9.0) Ur Specific [place] <= 1.005 (1.005-1.025) Urine Protein Negative (Neg-Trace) mg/dL Urine Glucose (UA) 250 H (Negative) mg/dL Urine Ketones Negative (Negative) mg/dL Urine Blood Negative (Negative) Urine Nitrite Negative (Negative) Ur Leukocyte Esterase Moderate (2+) H (Negative) Urine RBC 0-2 (0-2) /HPF Urine WBC 11-20 H (0-5) /HPF Ur Squamous Epith Cells 0-2 (0-2) /HPF Urine Bacteria None Seen (None Seen) Hyaline Casts 0-2 (0-2) /LPF 02/12/25 Range/Units 12:48 WBC (4.8-10.8) X10*3/uL RBC (4.20-5.50) X10*6/uL Hgb (12.0-16.0) g/dl Hct (37.0-47.0) % MCV (80.0-98.0) fL MCH (27.0-33.0) pg MCHC (31.0-35.0) g/dl RDW (11.0-16.0) % Plt Count (160-400) X10*3/uL MPV (9.4-12.3) fL Immature Gran % (Auto) (0.0-0.4) % Neut % (Auto) (45-73) % Lymph % (Auto) (20-40) % Gates % (Auto) (2-11) % Eos % (Auto) (0-4) % Baso % (Auto) (0-2) % Lymph # (Auto) (1.2-4.9) X10*3/uL Gates # (Auto) (0.1-1.2) X10*3/uL Eos # (Auto) (0.0-0.4) X10*3/uL Baso # (Auto) (0.0-0.2) X10*3/uL Abs Immat Gran (auto) (0.00-0.03) X10*3/uL Absolute Neuts (auto) (2.0-8.3) x10*3/uL Absolute Nucleated RBC (0.0-0.012) X10*3/uL Nucleated RBC % (auto) (0.0-0.2) /100WBC PT (10.9-12.4) SEC INR (0.9-1.1) Sodium (135-145) mmol/L Potassium (3.3-5.1) mmol/L Chloride (96-108) mmol/L Carbon Dioxide (22-29) mmol/L Anion Gap (12-20) BUN (9-16) mg/dL Creatinine (0.5-1.4) mg/dL Estim Creat Clear Calc Estimated GFR POC Glucose 210 H (60-115) mg/dL Random Glucose (60-115) mg/dL Calcium (8.4-10.2) mg/dL Magnesium (1.6-2.6) mg/dL Total Bilirubin (0.0-1.0) mg/dL AST (5-31) U/L ALT (0-31) U/L Alkaline Phosphatase (39-117) U/L Total Protein (6.5-8.0) g/dL Albumin (3.5-5.0) g/dL Urine Color Urine Appearance Urine pH (5.0-9.0) Ur Specific [place] (1.005-1.025) Urine Protein (Neg-Trace) mg/dL Urine Glucose (UA) (Negative) mg/dL Urine Ketones (Negative) mg/dL Urine Blood (Negative) Urine Nitrite (Negative) Ur Leukocyte Esterase (Negative) Urine RBC (0-2) /HPF Urine WBC (0-5) /HPF Ur Squamous Epith Cells (0-2) /HPF Urine Bacteria (None Seen) Hyaline Casts (0-2) /LPF Radiology Impression Discussion of test interpretation with radiology: I have reviewed the radiologist's reading. Radiologist Impression: MR Brain without gadolinium Comparison: CT/REG/SR - CT ANGIO HEAD NECK - 02/12/25 10:[address] - CT ANGIO HEAD NECK - 02/12/25 10:00 EDT Findings: No restricted diffusion. No intra-axial mass or hemorrhage. Mild white matter disease, compatible with small-vessel ischemic change. No midline shift. No hydrocephalus. Vascular flow voids are intact. The orbits are normal. The sinuses and mastoid air cells are clear. No focal bone lesion. IMPRESSION: No acute infarct. This document has been electronically signed by: Taylor Akers MD on 02/12/2025 19:39:29 Procedures EJ/Peripheral Line Arm R: Time Out Performed: Yes Skin Cleansed in Sterile Fashion: Yes Size (gauge): 20 IV Secured and Dressing Applied: Yes Patient Tolerated Procedure: well Additional Comments: I was asked by RN to establish IV she was unable to establish IV very difficult access. Under ultrasound-guided I cannulated the right basilic vein with a long 20 gauge catheter into Narcan labs were obtain line was flushed and secured Discharge Plan Discharge Clinical Impression: Shakiness Headache Qualifiers: Headache type: unspecified Headache chronicity pattern: acute headache Intractability: not intractable Qualified Code(s): R51.9 - Headache, unspecified Instructions: Acute Headache (ED) Additional Instructions: Your complete blood count was normal. Your blood chemistries did reveal an elevated glucose/sugar otherwise unremarkable. Your urine did not reveal any bacteria but she did have white blood cells. At this time I do not think that you have a urinary tract infection however if you grow a significant amount of bacteria out of your urine the emergency department will contact you to discuss possibly starting you on an antibiotic. The CT angiogram of your head and neck was concerning for possible stroke therefore we got an MRI of your brain. The MRIs of very sensitive test for stroke in you did not have a stroke on your MRI which is reassuring. Take Tylenol (acetaminophen) 325 mg pills, 2 pills every 6 hours as needed for pain or fever. Follow-up with your doctor in 2 days. Please return to the emergency department if your symptoms get worse or if you develop any symptoms that are concerning to you. Prescriptions: No Action clonazepam 0.5 mg tablet 0.5 mg PO DAILY PRN (Reason: Anxiety) 30 Days Qty: 30 0RF (DME) FreeStyle Lite Strips Strip See Rx Instructions .ROUTE .MEDSUPPLY Qty: 150 11RF Rx Instructions: 4 times a day aspirin 81 mg tablet,delayed release (DR/EC) 81 mg PO DAILY 30 Days Qty: 30 0RF ascorbic acid (vitamin C) [Vitamin C] 500 mg Tablet 500 mg PO DAILY 30 Days Qty: 30 0RF metformin 500 mg tablet extended release 24 hr 500 mg PO BID Qty: 60 0RF topiramate 50 mg tablet 50 mg PO BID 30 Days Qty: 60 0RF cholecalciferol (vitamin D3) 50 mcg (2,000 unit) capsule 50 mcg PO DAILY 30 Days Qty: 30 0RF (DME) pen needle, diabetic 32 gauge x 5/32 needle See Rx Instructions subcut .MEDSUPPLY Qty: 50 0RF Rx Instructions: As directed (DME) lancets [TRUEplus Lancets] 33 gauge misc See Rx Instructions .ROUTE .MEDSUPPLY Qty: 100 0RF Rx Instructions: As directed test blood sugar 4 times a day cetirizine 10 mg tablet 10 mg PO DAILY insulin aspart U-100 [Novolog FlexPen U-100 Insulin] 100 unit/mL (3 mL) insulin pen 1 sliding scale dose subcut TIDAC insulin glargine [Lantus Solostar U-100 Insulin] 100 unit/mL (3 mL) insulin pen 39 unit subcut BEDTIME citalopram 20 mg tablet 20 mg PO DAILY albuterol sulfate 90 mcg/actuation Hfa Aerosol Inhaler 2 puff INHALATION Q4H PRN (Reason: Shortness Of Breath Or Wheezing) gabapentin 300 mg capsule 300 mg PO TID atorvastatin 20 mg tablet 20 mg PO BEDTIME hydrochlorothiazide 12.5 mg tablet 12.5 mg PO QAM Qty: 10 0RF polyvinyl alcohol 1.4 % drops 1 drp ophthalmic (eye) QID PRN (Reason: Dry Eyes) fluticasone propionate 50 mcg/actuation spray,suspension 1 spray intranasal DAILY PRN (Reason: Allergy Symptoms) carbidopa-levodopa 25-100 mg Tablet 1 tab PO TID Qty: 90 0RF amlodipine 2.5 mg tablet 5 mg PO DAILY mirtazapine 15 mg tablet 22.5 mg PO BEDTIME Print Language: Occitan
[2025-02-12 08:15] LABS: MANUAL DIFF FLAG NO
[2025-02-12 08:17] LABS: Hematocrit 37.3 % (37.0-47.0); Hemoglobin 12.6 g/dl (12.0-16.0); Imm Gran Abs Auto 0.03 X10*3/uL (0.00-0.03); Imm Gran Pct Auto 0.4 % (0.0-0.4); Lymphocytes Absolute Auto 2.9 X10*3/uL (1.2-4.9); Mean Corpuscular HGB Conc 33.8 g/dl (31.0-35.0); Mean Corpuscular Hemoglobin 32.6 pg (27.0-33.0); Mean Corpuscular Volume 96.4 fL (80.0-98.0); NRBC Abs Auto 0.000 X10*3/uL (0.0-0.012); NRBC Pct Auto 0.0 /100WBC (0.0-0.2); Platelet Count 236 X10*3/uL (160-400); Red Blood Count 3.87 X10*6/uL (4.20-5.50); White Blood Count 8.6 X10*3/uL (4.8-10.8)
--- NOTE | 2025-02-12 08:17 | PC.NURSE ---
Pt noted to have L sided weakness and left facial droop. Patient states it is not new. Pt aware. Pt has difficulty swallowing, failed swallow eval. Provider aware. RR even and unlabored, denies SOB. C/o 10/10 head pain, no other complaints.
[2025-02-12 08:26] LABS: INTERNATIONAL NORM RATIO 1.0 (0.9-1.1); Prothrombin Time 11.0 SEC (10.9-12.4)
[2025-02-12 08:38] LABS: Alanine Aminotransferase < 6 U/L (0-31); Albumin Level 4.0 g/dL (3.5-5.0); Alkaline Phosphatase 108 U/L (39-117); Anion Gap 14 (12-20); Aspartate Amino Transferase 21 U/L (5-31); Blood Urea Nitrogen 20 mg/dL (9-16); Calcium 9.2 mg/dL (8.4-10.2); Carbon Dioxide 26 mmol/L (22-29); Chloride 105 mmol/L (96-108); Creatinine Clr Calc Pharmacy 47.5; Estimated Glomerular Filt Rate 52; Magnesium 2.2 mg/dL (1.6-2.6); Potassium 4.5 mmol/L (3.3-5.1); Sodium 140 mmol/L (135-145); Total Protein 7.4 g/dL (6.5-8.0)
[2025-02-12] MEDS: diazePAM 10 MG/2 ML CARTRIDGE 2.5 MG IVPUSH (08:51)
--- NOTE | 2025-02-12 08:58 | PC.NURSE ---
Pt complaining of bilat leg pain and sts unable to move R leg now but seen moving the R leg a little. 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 Provider is aware. good pulse on bilat feet.
--- NOTE | 2025-02-12 10:01 | MHC.EDTECH ---
placed pt on a purewick.
[2025-02-12] MEDS: iohexoL 350 MG/ML 100 ML INFUS..BTL 70 ML IV (10:26)
[2025-02-12 12:52] LABS: Glucose, Whole Blood 210 mg/dL (60-115)
--- NOTE | 2025-02-12 14:56 | PC.NURSE ---
mri screening form done and faxed over
--- NOTE | 2025-02-12 21:33 | PC.NURSE ---
patient is sitting up bed side eating turkey sandwich with diet gingerale.Pt requested tylenol for pain. Gave pt. Tolerating sitting bedside well.
--- NOTE | 2025-02-12 22:01 | PC.NURSE ---
Ambulated in hallway with a steady gait with optical coating technician. Visualized by nurse.
== END 2025-02-12 23:49 | disposition home or self-care (01) ==
PROVIDERS: Emergency Medicine; Emergency Provider Emergency Medicine Emergency Medical Services; PCP Internal Medicine
DX: R56.9 Unspecified convulsions (principal); R51.9 Headache, unspecified; R11.2 Nausea with vomiting, unspecified; E11.9 Type 2 diabetes mellitus without complications; I10 Essential (primary) hypertension; Z79.4 Long term (current) use of insulin; Z79.899 Other long term (current) drug therapy; Z51.81 Encounter for therapeutic drug level monitoring
CPT/HCPCS: 36415; 36556; 70496; 70498; 70551; 80053; 81001; 82947; 83735; 85025; 85610; 87086; 93005; 96361; 96374; 96375; 99285; J0131; J2270; J3360; Q9967

== ENCOUNTER → 2025-02-12 06:35 | Outpatient (BNV) | payer OTHER, SELFPAY | PROVIDERS: Emergency Provider Emergency Medicine; PCP Internal Medicine; Visit Provider Internal Medicine | DX: R56.9 Unspecified convulsions (principal) | CPT/HCPCS: 93010 ==

== ENCOUNTER → 2025-02-12 08:09 | Outpatient (BNV) | payer OTHER, SELFPAY | PROVIDERS: Emergency Provider Emergency Medicine; PCP Internal Medicine; Visit Provider Radiology Diagnostic Radiology | DX: R51.9 Headache, unspecified (principal) | CPT/HCPCS: 70496; 70498; 70551 ==

== ENCOUNTER 2025-04-05 15:56 | Outpatient (REF) | payer OTHER, SELFPAY ==
--- NOTE | ~2025-04-05 | US_ITS ---
EXAMINATION: US TRIPLEX LOWER EXTREMITY, LEFT CLINICAL INFORMATION: Left lower extremity edema. COMPARISON: None available. TECHNIQUE: Color-flow triplex imaging with spectral analysis and compression Doppler were performed on the left lower extremity. FINDINGS: Respiratory variation, normal compression and augmented flow are noted throughout the left lower extremity. The visualized common femoral vein, superficial femoral vein, profunda femoral vein, popliteal vein and midcalf peroneal and posterior tibial venous segments show no evidence of deep venous thrombosis. There is no Sorensen's cyst. US/US venous duplex LE LT IMPRESSION: No evidence of deep venous thrombosis involving the left lower extremity. Electronically signed by: Nelson Anthony MD 04/05/2025 04:36 PM EDT RP
--- OUTSIDE RECORDS SUMMARY | 2025-04-05 11:00 | XMS_ITS | Encounter Summary ---
Author Organization [employer] Address [address] [place] [address] Care Team Providers Care Metallurgy Teacher Name Role Phone Shine Holt MD Primary Care Provide r Whit Rodriguez PharmD Unavailable [phone] Reason for Referral * Imaging (STAT) - Authorized Specialty Diagnoses / Procedures Referred By Libby broussard Referred To Contact Cardiology Diagnoses Left leg swelling Procedures Vascular US lower extremity arterial duplex left with Doppler Teresa Armstrong NP [address] [place] [address] Phone: tel: fax: [facility] [address] [place] [address] Phone: tel: fax: Referral ID Status Reason Start Date Expiration Date Visits Requested Visits Authorized [id number] Authorized Perform Procedure 04/05/2025 04/05/2026 1 1 Reason for Visit * Reason Comments sick visit Encounter Details Date Type Department Care Team ([facility] st Contact Info) Description 04/05/2025 11:00 AM EDT Office Visit [facility] MEDICINE [address] [place] [address] Left leg swelling (Primary Dx); Left leg pain; Encounter for immunization Social History Tobacco Use Types Packs/Day Years [...] your housing situation today? I have horace olga 03/28/[address] you li [...] the past 12 months, has t he electric, gas, oil or water company threatened to [...] AM EDT documented as of this encounter Last Filed Vital Signs Vital Sign Reading Time Taken Comments Blood Pressure 142/92 04/05/2025 11:32 AM EDT Pulse 89 04/05/2025 11:32 AM EDT Temperature 36.4 C (97.6 F) 04/05/2025 11:32 AM EDT Respiratory Rate 17 04/05/2025 11:32 AM EDT Oxygen Saturation 99% 04/05/2025 11:32 AM EDT Inhaled Oxygen Concentration - - Weight 84.1 kg (185 lb 8 oz) 04/05/2025 11:32 AM EDT Height 160 cm (5' 3 ) 04/05/2025 11:32 AM EDT Body Mass Index 32.86 04/05/2025 11:32 AM EDT documented in this encounter Plan of Treatment Upcoming Encounters Date Type Department Care Team (Late st Contact Info) Description 04/11/2025 11:00 AM EDT Office Visit [facility] MEDICINE [address] [place] [address] Shine Holt MD [address] [place] [address] 06/28/2025 10:30 AM EST Office Visit [facility] OPTOMETRY [address] [place] [address] Carlos, Yaneth, OD [address] [place] [address] documented as of this encounter Goals Goal Patient Goal Type Associated Problems Recent Progress Patient-Stated? Author Blood Pressure < 140/90 Blood Pressure Hypertension 142/92(2024 11:32 AM EDT) No Whit Rodriguez PharmD Hemoglobin A1c < 7.0 Result Component Type 2 diabetes mellitus with hyperglycemia, with long-term current use of insulin 9.9( 1:29 PM EDT) No Whit Rodriguez PharmD [...] documented as of this encounter Visit Diagnoses Diagnosis Left leg swelling- Primary Left leg pain Pain in soft tissues of limb Encounter for immunization documented in this encounter Additional Health Concerns Assessment Noted Time PHQ-9 Depression Total Score: 0 04/21/20 24 1:26 PM EDT documented as of this encounter Care Teams Metallurgy Teacher Relationship Specialty Start Date End Date Shine Holt MD [address] [place] [address] PCP - General Internal Medicine 03/30/14 Whit Rodriguez PharmD [address] [place] [address] Pharmacist Internal Medicine 10/06/22 Garrett Shah 12/11/22 documented as of this encounter
--- OUTSIDE RECORDS SUMMARY | 2025-04-05 16:33 | XMS_ITS | Encounter Summary ---
Author Organization [employer] Address [address] [place] [address] Care Team Providers Care Asphalt Roller Person Name Role Phone Shine Holt MD Primary Care Provide r Whit Rodriguez PharmD Unavailable [phone] Reason for Visit * Reason Onset Date Comments Med Refill 12/15/2022 Encounter Details Date Type Department Care Team (Late st Contact Info) Description 12/15/2022 Telephone [facility] MEDICINE [address] [place], [place] [phone] Shine Holt MD [address] [place], [place] [phone] Med Refill Social History Tobacco Use Types Packs/Day Years Used Date Smoking Tobacco: Never Passive Smoke Exposure: Never Smokeless Tobacco: Never Alcohol Use Standard Drinks/Week Comments Never 0 (1 standard drink = 0.6 oz pur e alcohol) Depression Answer Date Recorded Patient Health Questionnaire-9 Score 8 11/27/2022 Depression Answer Date Recorded Patient Health Questionnaire-2 Score 1 11/27/2022 Comments Unknown Sex and Gender Information Value Date Recorded Sex Assigned at Female 05/05/2022 10:14 AM EDT Legal Sex Female 10:14 AM EDT Gender Identity Female 05/05/2022 10:14 AM EDT Sexual Orientation Choose not to disclose 2021 10:14 AM EDT COVID-19 Exposure Response Date Recorded In the last 10 days, have yo u been in contact with someone who was confirmed or suspected to have Coronavirus/COVID-19? No / Unsure 12/16/2022 10:15 AM EDT documented as of this encounter Miscellaneous Notes * Telephone Encounter - Maeve Mccann RN - 12/15/2022 12:33 PM EDT Filled by psych provider * Telephone Encounter - Doris Francisco - 12/15/2022 12:28 PM EDT Tc from pt requesting medication refill for clonazePAM (KlonoPIN) 0.5 MG tablet documented in this encounter Plan of Treatment Upcoming Encounters Date Type Department Care Team (Late st Contact Info) Description 04/11/2025 11:00 AM EDT Office Visit [facility] MEDICINE [address] [place] [address] Shine Holt MD [address] [place] [address] 06/28/2025 10:30 AM EST Office Visit [facility] OPTOMETRY [address] [place] [address] Yaneth Gonzalez, OD [address] [place] [address] documented as of this encounter Goals Goal [...] with long-term current use of insulin 189( 9:57 AM EDT) No Whit Rodriguez PharmD documented as of this encounter Visit Diagnoses Not on filedocumented in this encounter Additional Health Concerns Assessment Noted Time PHQ-9 Depression Total Score: 8 11/28/19 2:08 PM EDT documented as of this encounter Care Teams Asphalt Roller Person Relationship Specialty Start Date End Date Shine Holt MD [address] [place] [address] PCP - General Internal Medicine 03/30/14 Whit Rodriguez PharmD [address] [place] [address] Pharmacist Internal Medicine 10/06/22 Garrett Shah 12/11/22 documented as of this encounter
--- OUTSIDE RECORDS SUMMARY | 2025-04-05 16:33 | XMS_ITS | Encounter Summary ---
Author Organization [employer] Address [address] [place] [address] Care Team Providers Care Cisco Network Architect Name Role Phone Shine Holt MD Primary Care Provide r Whit Rodriguez PharmD Unavailable [phone] Reason for Visit * Reason Comments Med Refill Encounter Details Date Type Department Care Team (Late st Contact Info) Description 11/10/2024 Refill [facility]INE [address] [place], [place] [phone] Shine Holt MD [address] [place], [place] [phone] Parkinson's disease without dyskinesia or fluctuating manifestations (CMS/HCC) Social History Tobacco Use Types Packs/Day Years [...] Description 04/11/2025 11:00 AM EDT Office Visit [facility] MED[facility]INE [address] [place] [address] Shine Holt MD [address] [place] [address] 06/28/2025 10:30 AM EST Office Visit [facility] OPTOMETRY [address] [place] [address] Yaneth Gonzalez, OD [address] [place] [address] documented as of this encounter Goals Goal [...] as of this encounter Visit Diagnoses Diagnosis Parkinson's disease without dyskinesia or fluctuating manifestations (CMS/HCC) (HCC) documented in this encounter Additional Health Concerns Assessment Noted Time PHQ-9 Depression Total Score: 0 04/21/20 24 1:26 PM EDT documented as of this encounter Care Teams Cisco Network Architect Relationship Specialty Start Date End Date Shine Holt MD [address] [place] [address] PCP - General Internal Medicine 03/30/14 Whit Rodriguez PharmD [address] [place] [address] Pharmacist Internal Medicine 10/06/22 Garrett Shah 12/11/22 documented as of this encounter
--- OUTSIDE RECORDS SUMMARY | 2025-04-05 16:33 | XMS_ITS | Encounter Summary ---
Author Organization [facility] [employer] Address [address] [place] [address] Care Team Providers Care Hospitality Manager Name Role Phone Shine Holt MD Primary Care Provide r Whit Rodriguez PharmD Unavailable [phone] Reason for Visit * Reason Onset Date Comments Med Refill 01/20/2023 Encounter Details Date Type Department Care Team (Late st Contact Info) Description 01/20/2023 Telephone [facility] MEDICINE [address] [place], [place] [phone] Shine Holt MD [address] [place], [place] [phone] Med Refill Social History Tobacco Use Types [...] suspected to have Coronavirus/COVID-19? No / Unsure 01/07/2023 11:26 AM EDT documented as of this encounter Miscellaneous Notes * Telephone Encounter - Cayla Anderson - 01/20/2023 11:14 AM EDT TC from pt requesting a med refill for metFORMIN XR (Glucophage-XR) 500 MG [address] Sheldon documented in this encounter Plan of Treatment Upcoming Encounters Date Type Department Care Team (Late st Contact Info) Description 04/11/2025 11:00 AM EDT Office Visit [facility] MEDICINE [address] [place] [address] Shine Holt MD [address] [place] [address] 06/28/2025 10:30 AM EST Office Visit [facility] OPTOMETRY [address] [place] [address] Yaneth Gonzalez, OD [address] [place] [address] documented as of this encounter Goals Goal Patient Goal Type Associated Problems Recent Progress Patient-Stated? Author Blood Pressure < 140/90 Blood Pressure Hypertension 142/92(2024 11:32 AM EDT) No Whit Rodriguez, PharmD Hemoglobin A1c < 7.0 Result Component Type 2 diabetes mellitus with hyperglycemia, with long-term current use of insulin 9.9( 1:29 PM EDT) No Whit Rodriguez, [place] Note: Most recent A1c likely mis-represented as [...] Time PHQ-9 Depression Total Score: 8 11/28/19 23 2:08 PM EDT documented as of this encounter Care Teams Hospitality Manager Relationship Specialty Start Date End Date Shine Holt MD [address] [place] [address] PCP - General Internal Medicine 03/30/14 Whit Rodriguez PharmD [address] [place] [address] Pharmacist Internal Medicine 10/06/22 Garrett Shah 12/11/22 documented as of this encounter
--- OUTSIDE RECORDS SUMMARY | 2025-04-05 16:33 | XMS_ITS | Encounter Summary ---
Author Organization [email or web address] Address [address] [place] [address] Care Team Providers Care Telegraph Lineman Name Role Phone Shine Holt MD Primary Care Provide r Whit Rodriguez PharmD Unavailable [phone] Reason for Visit * Reason Onset Date Comments HDF 03/09/2024 Encounter Details Date Type Department Care Team (Late st Contact Info) Description 03/09/2024 Telephone [facility] MEDICINE [address] [place], [place] [phone] Shine Holt MD [address] [place], [place] [phone] F Social History Tobacco Use Types Packs/Day Years Used Date Smoking Tobacco: Never Passive Smoke Exposure: Never Smokeless Tobacco: Never Alcohol Use Standard Drinks/Week Comments Never 0 (1 standard drink = 0.6 oz pur e alcohol) Depression Answer Date Recorded Patient Health Questionnaire-9 Score 8 11/27/2022 Housing Stability Answer Date Recorded What is your housing situation today? I have horaceangelo espinoza 04/29/[address] you li ve. Do you have problems with any of the following? None of the above 04/29/2023 Food Insecurity Answer Date Recorded Within the past 12 months, y ou worried that your food would run out before you got money to buy more: Never True 04/29/2023 Within the past 12 months,th e food you bought just didn't last and you didn't have enough money to get more: Never True Transportation Answer Date Recorded In the past 12 months, has l ack of transportation kept you from medical appts, meetings, work or from getting things needed for daily living? No 04/29/2023 Utilities Answer Date Recorded In the past 12 months, has t he electric, gas, oil or water company threatened to shut off services in your home? No 04/29/2023 Depression Answer Date Recorded Patient Health Questionnaire-2 Score 1 11/27/2022 Comments Unknown Sex and Gender Information Value Date Recorded Sex Assigned at Female 05/05/2022 10:14 AM EDT Legal Sex Female 10:14 AM EDT Gender Identity Female 05/05/2022 10:14 AM EDT Sexual Orientation Choose not to disclose 2021 10:14 AM EDT documented as of this encounter Miscellaneous Notes * Telephone Encounter - Sophie Whitt - 03/09/2024 1:06 PM EDT Tc from Susan EMERY requesting a HDF appt. Hospital: [facility] Date of admission: 02/29/24 Discharge date: 03/05/24 Diagnosed: urination infection , parkinson and Suicidal Thoughts Was inform needs an appt with PCP within a week documented in this encounter Plan of Treatment Upcoming Encounters Date Type Department Care Team (Late st Contact Info) Description 04/11/2025 11:00 AM EDT Office Visit [facility] MEDICINE [address] [place] [address] Shine Holt MD [address] [place] [address] 06/28/2025 10:30 AM EST Office Visit [facility] OPTOMETRY [address] [place] [address] Yaneth Gonzalez, OD [address] [place] [address] documented as of this encounter Goals Goal [...] documented as of this encounter Care Teams Telegraph Lineman Relationship Specialty Start Date End Date Shine Holt MD [address] [place] [address] PCP - General Internal Medicine 03/30/14 Whit Rodriguez PharmD [address] [place] [address] Pharmacist Internal Medicine 10/06/22 Garrett Shah 12/11/22 documented as of this encounter
--- OUTSIDE RECORDS SUMMARY | 2025-04-05 16:33 | XMS_ITS | Encounter Summary ---
Author Organization [facility] [employer] Address [address] [place] [address] Care Team Providers Care Permaculture Designer Name Role Phone Shine Holt MD Primary Care Provide r Whit Rodriguez PharmD Unavailable [phone] Reason for Visit * Reason Onset Date Comments FYI 07/27/2024 Encounter Details Date Type Department Care Team (Late st Contact Info) Description 07/27/2024 Telephone [facility] MEDICINE [address] [place], [place] [phone] Shine Holt MD [address] [place], [place] [phone] FY Social History Tobacco Use Types Packs/Day Years [...] your housing situation today? I have horace sing 03/28/[address] you li [...] Description 04/11/2025 11:00 AM EDT Office Visit [facility] MEDICINE [address] [place] [address] Shine Holt MD [address] [place] [address] 06/28/2025 10:30 AM EST Office Visit [facility] OPTOMETRY [address] [place] [address] Yaneth Gonzalez, KAYA [address] [place] [address] documented as of this encounter Goals Goal [...] documented as of this encounter Care Teams Permaculture Designer Relationship Specialty Start Date End Date Shine Holt MD [address] [place] [address] PCP - General Internal Medicine 03/30/14 Whit Rodriguez PharmD [address] [place] [address] Pharmacist Internal Medicine 10/06/22 Garrett Shah 12/11/22 documented as of this encounter
--- OUTSIDE RECORDS SUMMARY | 2025-04-05 16:33 | XMS_ITS | Encounter Summary ---
Author Organization [employer] Address [address] [place] [address] Care Team Providers Care Line Service Technician Name Role Phone Shine Holt MD Primary Care Provide r Whit Rodriguez PharmD Unavailable [phone] Reason for Visit * Reason Onset Date Comments Results 02/09/2023 Encounter Details Date Type Department Care Team (Late st Contact Info) Description 02/09/[address] [facility] MEDICINE [address] [place], [place] [phone] Shine Holt MD [address] [place], [place] [phone] Results Social History Tobacco Use Types Packs/Day Years [...] Telephone Encounter - Maeve Mccann RN - 02/10/2023 10:11 AM EDT Pt has no new lab results. Last results are from early December. Pt sees PCP 03/05 * Telephone Encounter - Rohan Castañeda - 02/09/2023 4:24 PM EDT Tc from pt returning phone call in regarding your lab results. Please contact pt at [phone] Citizen Of [place] Speaker documented in this encounter Plan of Treatment Upcoming Encounters Date Type Department Care Team (Late st Contact Info) Description 04/11/2025 11:00 AM EDT Office Visit [facility] MEDICINE [address] [place] [address] Shine Holt MD [address] [place] [address] 06/28/2025 10:30 AM EST Office Visit [facility] OPTOMETRY [address] [place] [address] Yaneth Gonzalez, OD [address] [place] [address] documented as of this encounter Goals Goal Patient Goal Type Associated Problems Recent Progress Patient-Stated? Author Blood Pressure < 140/90 Blood Pressure Hypertension 142/92(2024 11:32 AM EDT) No Whit Rodriguez, PharmSteve Hemoglobin A1c < 7.0 Result Component Type 2 diabetes mellitus with hyperglycemia, with long-term current use of insulin 9.9( 4 1:29 PM EDT) No Whit Rodriguez, Socorro [...] documented as of this encounter Care Teams Line Service Technician Relationship Specialty Start Date End Date Shine Holt MD [address] [place] [address] PCP - General Internal Medicine 03/30/14 Whit Rodriguez PharmD [address] [place] [address] Pharmacist Internal Medicine 10/06/22 Garrett [facility] 12/11/22 documented as of this encounter
--- OUTSIDE RECORDS SUMMARY | 2025-04-05 16:33 | XMS_ITS | Encounter Summary ---
Author Organization [email or web address] Address [address] [place] [address] Care Team Providers Care Milk Inspector Name Role Phone Shine Holt MD Primary Care Provide r Whit Rodriguez PharmD Unavailable [phone] Reason for Visit * Reason Onset Date Comments Appointment Request 03/23/2024 Encounter Details Date Type Department Care Team (Late st Contact Info) Description 03/23/2024 Telephone [facility] MEDICINE [address] [place], [place] [phone] Shine Holt MD [address] [place], [place] [phone] Appointment Request Social History Tobacco Use Types Packs/Day Years [...] encounter Miscellaneous Notes * Telephone Encounter - Rogers Pike - 03/23/2024 11:20 AM EDT Tc from patients daughter calling to cancel HDF appt for 03/25 and would like a call back to reschedule documented in this encounter Plan of Treatment Upcoming Encounters Date Type Department Care Team (Late st Contact Info) Description 04/11/2025 11:00 AM EDT Office Visit [facility] MEDICINE [address] [place] [address] Shine Holt MD [address] [place] [address] 06/28/2025 10:30 AM EST Office Visit [facility] OPTOMETRY [address] [place] [address] Yaneth Gonzalez OD [address] [place] [address] documented as of this encounter Goals Goal [...] documented as of this encounter Care Teams Milk Inspector Relationship Specialty Start Date End Date Shine Holt MD [address] [place] [address] PCP - General Internal Medicine 03/30/14 Whit Rodriguez PharmD [address] [place] [address] Pharmacist Internal Medicine 10/06/22 Garrett Shah 12/11/22 documented as of this encounter
--- OUTSIDE RECORDS SUMMARY | 2025-04-05 16:33 | XMS_ITS | Encounter Summary ---
Author Organization [employer] Address [address] [place] [address] Care Team Providers Care Real Estate Executive Assistant Name Role Phone Shine Holt MD Primary Care Provide r Whit Rodriguez PharmD Unavailable [phone] Reason for Visit * Reason Onset Date Comments Nurse Triage 04/05/2025 Encounter Details Date Type Department Care Team (Late st Contact Info) Description 04/05/2025 Telephone [facility] MEDICINE [address] [place], [place] [phone] Shine Holt MD [address] [place], [place] [phone] Nurse Triage Social History Tobacco Use Types Packs/Day Years [...] encounter Miscellaneous Notes * Telephone Encounter - Bess Lara RN - 04/05/2025 9:07 AM EDT called pt to triage, spoke to pt. through [employer]. pt states last several days, having swelling of her left leg. pt states pain, swelling from foot up the leg to the knee. pt denies sob, chest pain, significant swelling of the right leg, or other associated or severe symptoms. pt states also had a low sugar last night of 66 for which she took some sugar with resolution. this morning her sugar was 206 and no further low sugars reported pt states good compliance with medications and she has a glucose sensor. pt without other significant symptoms at this time. advised no available appt with PCP and given appt today with blue team provider at 11:00 for exam. advised home care: rest, e levate, monitor skin for breakdown, and call back if further concerns. SERVICES REP is currently with pt andis aware of all information. insurance verified. Protocol Used: Leg Swelling and Edema (Adult) Protocol-Based Disposition: See in Office or Video Visit Today Positive Triage Question: * Moderate swelling of both ankles (e.g., swelling extends up to the knees) AND new-onset or getting worse * All higher-acuity triage questions were negative Care Advice Discussed: * Reasons To Call Back - You become worse * Telephone Encounter - Junior Melchor - 04/05/2025 8:29 AM EDT Symptom: Leg Swelling - Not From Injury Outcome: Schedule an urgent appointment (within 1 hour) or talk to a nurse or provider soon Reason: Leg swelling on one side only The caller accepted this outcome. Contact pt at [phone] (hebrew) documented in this encounter Plan of Treatment Upcoming Encounters Date Type Department Care Team (Late st Contact Info) Description 04/11/2025 11:00 AM EDT Office Visit [facility] MEDICINE [address] [place] [address] Shine Holt MD [address] [place] [address] 06/28/2025 10:30 AM EST Office Visit [facility] OPTOMETRY [address] [place] [address] Yaneth Gonzalez, KAYA [address] [place] [address] documented as of this encounter Goals Goal [...] documented as of this encounter Care Teams Real Estate Executive Assistant Relationship Specialty Start Date End Date Shine Holt MD [address] [place] [address] PCP - General Internal Medicine 03/30/14 Whit Rodriguez PharmD [address] [place] [address] Pharmacist Internal Medicine 10/06/22 Garrett Shah 12/11/22 documented as of this encounter
--- OUTSIDE RECORDS SUMMARY | 2025-04-05 16:33 | XMS_ITS | Encounter Summary ---
Author Organization [employer] Address [address] [facility] [address] [place] [address] Care Team Providers Care Stave Hewer Name Role Phone Shine Holt MD Primary Care Provide r Whit Rodriguez PharmD Unavailable [phone] Encounter Details Date Type Department Care Team (Late st Contact Info) Description 03/14/2025 Refill [facility] MEDICINE [address] [place] [address] Shine Holt MD [address] [place] [address] Social History Tobacco Use Types Packs/Day Years [...] Upcoming Encounters Date Type Department Care Team ([facility] st Contact Info) Description 04/11/2025 11:00 AM EDT Office Visit [facility] MEDICINE [address] [place] [address] Shine Holt MD [address] [place] [address] 06/28/2025 10:30 AM EST Office Visit [facility] OPTOMETRY [address] [place] [address] Yaneth Gonzalez OD [address] [place] [address] documented as of this encounter Goals Goal [...] documented as of this encounter Care Teams Stave Hewer Relationship Specialty Start Date End Date Shine Holt MD [address] [place] [address] PCP - General Internal Medicine 03/30/14 Whit Rodriguez PharmD [address] [place] [address] Pharmacist Internal Medicine 10/06/22 Garrett Shah 12/11/22 documented as of this encounter
--- OUTSIDE RECORDS SUMMARY | 2025-04-05 16:33 | XMS_ITS | Clinical Summary ---
Author Organization [facility] Address [address] [facility] [address] [place] [phone] Phone Care Team Providers Care Public Relations Associate Name Role Phone Unknown, Unknown Primary Care [...] SIGMOIDOSCOPY 1997 VIRTUAL COLONOSCOPY 1997 OSTEOPOROSIS SCREENING INITIAL (ONE-TIME) 2017 PNEUMOCOCCAL VACCINES (50+ years) (2 of 2 - PCV) 09/14/2018 09/14/2017, 04/13/2003 Adult Td,Tdap Booster 11/30/2023 11/29/2013 , 08/20/2000, 07/06/1989 INFLUENZA VACCINE (#1) 2025 4, 06/03/2022, 05/29/2021, Additional history exists COVID-19 VACCINE ( season) 2025 09/09/2021, 05/29/2021 ZOSTER VACCINES Completed 03/04/2022, 12/31/2021 [...] topic Medical Devices Not on file Insurance MEDICARE REPLACEMENT [place] [id number] [facility]AC[facility] [address] [address] MEDICARE REPLACEMENT [facility] MEDICARE REPLACEMENT [facility] MEDICARE REPLACEMENT [facility] MEDICARE REPLACEMENT [facility] MEDICARE [facility]PLACEMENT [facility] MEDICARE REPLACEMENT [facility] MEDICARE REPLACEMENT [facility] MEDICARE [facility]PLACEMENT [facility] Care Teams Public Relations Associate Relationship Specialty Start Date End Date Unknown, Unknown, PCP - General 04/27/18 Additional Source Comments The information contained in this document represents components of the legal health record. It is not the complete legal health record.[facility]
--- OUTSIDE RECORDS SUMMARY | 2025-04-05 16:33 | XMS_ITS | Encounter Summary ---
Author Organization [employer] Address [address] [place] [address] Care Team Providers Care Ballroom Dancer Name Role Phone Shine Holt MD Primary Care Provide r Whit Rodriguez PharmD Unavailable [phone] Reason for Visit * Reason Comments Med Refill Encounter Details Date Type Department Care Team (Late st Contact Info) Description 04/05/2025 Refill [facility] [address] [place] [address] Shine Holt MD [address] [place] [address] Social History Tobacco Use Types Packs/Day Years [...] Description 04/11/2025 11:00 AM EDT Office Visit [facility] MEDICINE [address] [place] [address] Shine Holt MD [address] [place] [address] 06/28/2025 10:30 AM EST Office Visit [facility] OPTOMETRY [address] [place] [address] Yaneth Gonzalez, KAYA [address] [place] [address] documented as of this encounter Goals Goal [...] documented as of this encounter Care Teams Ballroom Dancer Relationship Specialty Start Date End Date Shine Holt MD [address] [place] [phone] PCP - General Internal Medicine 03/30/14 Whit Rodriguez PharmD [address] [place] [address] Pharmacist Internal Medicine 10/06/22 Garrett Shah 12/11/22 documented as of this encounter
--- OUTSIDE RECORDS SUMMARY | 2025-04-05 16:33 | XMS_ITS | Clinical Summary ---
Author Organization [employer] Address [address] [place] [address] Care Team Providers Care English Composition Teacher Name Role Phone Shine Holt MD Primary Care Provide r Whit Rodriguez PharmD Unavailable [phone] Allergies Active Allergy Reactions Criticality Noted Date Comments Covid-19 (Inact Whole Virus) Vaccine (Eneida Cell) Swelling High 11/09/2023 Homosalate High 11/09/2023 Other Reaction(s): RASH, itchy Lisinopril Angioedema High 07/29/2021 Octinoxate (Octyl Methoxycinnamate) 11/09/2023 Oxybenzone High 11/09/2023 Other Reaction(s): RASH, itchy Pioglitazone 02/28/2013 Other reaction(s): Itching, RADER, palpitations Valsartan Dizziness,Angioedem a 06/14/2022 Medications * This document contains information received from the source organization and may not represent a complete record from that organization. Blood Glucose Monitoring Suppl (FreeStyle Lite) device Inject 1 each under the skin 4 times daily. Use to test blood sugar as directed 1 each 023 Active clonazePAM (KlonoPIN) 0.5 MG tablet Take 1 tablet (0.5 mg) by mouth in the morning. PRN 30 tablet 023 Active citalopram (CeleXA) 20 MG tablet Take 1 tablet by mouth in the morning. 023 Active mirtazapine (Remeron) 15 MG tablet Take 1 tablet by mouth at bedtime. 023 Active Continuous Glucose Missile Inspector (FreeStyle Sue 2 [place]) device 1 each in the morning. 1 each 024 Active TRUEplus Lancets 33G misc TEST BLOOD SUGAR 4 TIMES A DAY 100 each Active Glycerin-Hyprome llose-PEG 400 (Artificial Tears) 0.2-0.2-1 % solutionIndicati ons:Type 2 diabetes mellitus with hyperglycemia, with long-term current use of insulin (HCC) Use 4 times a day as needed 15 mL Active aspirin (Aspirin Low Dose) 81 MG EC tablet TAKE 1 TABLET BY MOUTH EVERY MORNING 90 tablet 025 Active Ascorbic Acid (vitamin C) 500 MG tablet TAKE 1 TABLET BY MOUTH EVERY MORNING 90 tablet 1 Active Pentips Generic Pen [place] 32G X 4 MM misc USE FOUR TIMES DAILY DIRECTED 100 each 025 Active Alcohol Swabs (Alcohol Pads) 70 % pads USE TO TEST BLOOD SUGAR TWICE A DAY 100 each 025 Active gabapentin (Neurontin) 300 MG capsule TAKE 1 CAPSULE BY MOUTH THREE TIMES DAILY IN THE MORNING, EVENING, AND BEDTIME 90 capsule 025 Active NovoLOG FLEXPEN 100 UNIT/ML pen INJECT 4-12 UNITS SUBCUTANEOUSLY THREE TIMES DAILY WITH MEALS PER SLIDING SCALE BLOOD SUGAR 150-200 = 4 UNITS, 201-250 = 6U, 251-300 = 8U, 301-350 = 10U, > 351 = 12U 15 mL 2 025 Active cetirizine (ZyrTEC) 10 MG tabletIndication s:Seasonal allergies TAKE 1 TABLET BY MOUTH EVERY MORNING 30 tablet Active metFORMIN XR (Glucophage-XR) 500 MG 24 hr tablet TAKE 1 TABLET BY MOUTH TWICE DAILY IN THE MORNING AND IN THE EVENING 60 tablet 025 Active topiramate 50 MG tabletIndication s:Fibromyalgia TAKE 1 TABLET BY MOUTH TWICE DAILY IN THE MORNING AND AT BEDTIME 60 tablet 3 025 Active atorvastatin (Lipitor) 20 MG tablet TAKE 1 TABLET BY MOUTH AT BEDTIME 90 tablet 3 025 Active Continuous Glucose Sensor (FreeStyle Sue 2 Sensor) [facility] [place] DIRECTED TO TEST BLOOD SUGAR CHANGE EVERY 14 DAYS 2 each 025 Active fluticasone (Flonase) 50 MCG/ACT nasal spray INHALE 1 SPRAY IN EACH NOSTRIL ONCE DAILY FOR FOR CONGESTION Active polyvinyl alcohol (Liquifilm Tears) 1.4 % ophthalmic solution USE FOUR TIMES DAILY INTO THE AFFECTED EYE(S) NEEDED 025 Active Continuous Glucose Sensor (FreeStyle Sue 2 Plus Sensor) miscIndications: Type 2 diabetes mellitus with hyperglycemia, with long-term current use of insulin ([facility]) 1 each every 15 days. Scan daily. Replace sensor every 15 days. 2 each Active glucose blood (FREESTYLE LITE) test stripIndications :Type 2 diabetes mellitus with hyperglycemia, with long-term current use of insulin ([facility]) USE TO TEST BLOOD SUGAR FOUR TIMES A DAY 100 each 025 Active Mounjaro 5 MG/0.5ML solution auto-injectorInd ications:Type 2 diabetes mellitus with hyperglycemia, with long-term current use of insulin ([facility]) INJECT ONE PEN (=5MG) SUBCUTANEOUSLY ONCE A WEEK DIRECTED 2 mL 3 025 Active carbidopa-levodo pa (Sinemet) 25-100 MG tabletIndication s:Parkinson's disease without dyskinesia or fluctuating manifestations (CMS/HCC) ([facility]) TAKE 1 TABLET BY MOUTH THREE TIMES DAILY 90 tablet 3 Active amLODIPine (Norvasc) 2.5 MG tabletIndication s:Primary hypertension TAKE 2 TABLETS BY MOUTH ONCE DAILY IN THE MORNING 60 tablet 3 025 Active Lantus SoloStar 100 UNIT/ML penIndications:T ype 2 diabetes mellitus with hyperglycemia, with long-term current use of insulin ([facility]) INJECT 38 UNITS SUBCUTANEOUSLY AT BEDTIME 15 mL 2 025 Active cholecalciferol (D3 Super Strength) 50 MCG (1999 UT) capsule TAKE 1 CAPSULE BY MOUTH EVERY MORNING 90 capsule 1 Active furosemide (Lasix) 40 MG tablet Take 1 tablet (40 mg) by mouth Once per day. 5 tablet 025 2025 Active cholecalciferol (D3 Super Strength) 50 MCG (1999 UT) capsule TAKE 1 CAPSULE BY MOUTH EVERY MORNING 90 capsule 1 025 2024 Discontinued(R eorder (will not trigger notification to Pharmacy)) Lantus SoloStar 100 UNIT/ML penIndications:T ype 2 diabetes mellitus with hyperglycemia, with long-term current use of insulin ([facility]) INJECT 38 UNITS SUBCUTANEOUSLY AT BEDTIME 15 mL 2 025 2024 Discontinued Active Problems Problem Noted Date Diagnosed Date Hospital discharge follow-up 04/21/2024 Assessment & Plan (04/21/2024 1:01 PM EDT): Patient here for a HDF Recently atmitted to [facility] from 03-02/ Patient presented with complaints of leg pain and admitted with concerns for left sided facial droop from CVA. Admitted to telemetry with 1:1 sitter out of concern for depression with passive suicidal thoughts. Work up showed no evidence of CVA on CT or MRI. Neurology was consulted and felt presentation was consistent with Parkinson's diseases. She was started on a trial of carbidopa-levodopa. While in the hospital patient was also diagnosed with E. Coli UTI and received 1 dose of ceftriaxone. Recommendation was for her to follow up with neurology in 2 weeks. Parkinson's disease without dyskinesia or fluctuating manifestations ([facility]) 04/21/2024 Assessment & Plan (04/21/2024 1:04 PM EDT): Patient here for a HDF Recently atmitted to [facility] from 03-02/ Patient presented with complaints of leg pain and admitted with concerns for left sided facial droop from CVA. Admitted to telemetry with 1:1 sitter out of concern for depression with passive suicidal thoughts. Work up showed no evidence of CVA on CT or MRI. Neurology was consulted and felt presentation was consistent with Parkinson's diseases. She was started on a trial of carbidopa-levodopa. While in the hospital patient was also diagnosed with E. Coli UTI and received 1 dose of ceftriaxone. Recommendation was for her to follow up with neurology in 2 weeks. Bilateral hearing loss 10/20/2023 Assessment & Plan (10/20/2023 2:29 PM EDT): Referred to ENT Hair loss 10/20/2023 Assessment & Plan (10/20/2023 2:29 PM EDT): Referred to [facility] Derm Class 1 obesity due to exces s calories with serious comorbidity in adult 11/27/2022 Assessment & Plan (11/27/2022 2:16 PM EDT): Patient has been counseled and educated about diet and exercise. Personal goal of weight loss discussedPatient has comorbidity of: DM Preventative health care 11/10/2022 Overview (12/16/2022): - Starting medboxes December 2022 - Has WAREHOUSE SHIFT SUPERVISOR that is available Tu and Th. But is leaving for [place] in January and will need new WAREHOUSE SHIFT SUPERVISOR - Various Med discrepancies to resolve: Assessment & Plan (12/16/2022 5:23 PM EDT): 1. Allergy to Medication (lisinopril) a. Patient allergy listed to lisinopril but RX was sent following In-patient psych episode in November. This medication has not been filled and will be removed from the pharmacy. 2. Duplicate therapy (baclofen vs flexeril) a. Neurology is prescribing flexeril and gabapentin. Baclofen to be stopped 3. Neurology Consult today with new meds prescribed and discharged from specialty a. The following were prescribed: i. Gabapentin 300mg TID for neck pain ii. Cyclobenzaprine 10mg PRN for neck/shoulder pain 4. Psych Medications: a. Escitalopram 10mg daily i. WAREHOUSE SHIFT SUPERVISOR & patient state that this medication was stopped (likely confused with Citalopram; to be verified with psych office) b. Need refills for the following: i. Clonazepam 0.5mg daily PRN (patient taking 1/2 tab only PRN) ii. Mirtazapine 7.5mg HS iii. Olanzapine 2.5mg HS iv. Trazodone 50mg HS (take additional tablet PRN) 5. Need refills from PCP a. Artificial Tears 1 drop in each eye every 2 hours as needed for dry eyes b. Simethicone 80 mg TID PRN gas c. Ventolin HFA? No indication? d. Topiramate 50mg BID for migraine prophylaxis Assessment & Plan (11/10/2022 4:13 PM EDT): - Reporting symptoms associated with allergic conjunctivitis including eye irritation and redness; used eye wash at home with little relief; advised to seek care at walk-in center. Patient reports unable to come today but will come in tomorrow. Migraine aura, persistent 01/14/2022 Assessment & Plan (04/21/2024 1:42 PM EDT): Pt previously admitted to the Hospital after she developed left sided droop and LUE weakness. In the ER she was given TPA for stroke protocol and underwent an extensive work up that included a Head CT /Angio and subsequently an MRI both of them which were negative for bleed and or CVA. Impression on discharge was that episode was likely a complicated migraine vs CVA/TIA. Currently doing better While in the SNF was started on Topiramate 50 mg po BID pt denies any recent headache Pt was referred to Neurology outpt follow up. Did not follow up today I have referred back I have continued her Topiramate History of uterine cancer 11/10/2017 Assessment & Plan (04/21/2024 1:26 PM EDT): s/p ELIZABETH and BSOO Used to be under the care of [facility]'s acton. 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 Endocrinology closed office/ care referred back to our clinic. Patient has difficulty remembering to record BG and is supposed to be injecting novolog per sliding scale three times daily and lantus daily. Unable to make insulin dose changes today due to limited BG readings. Potential for CGM for better glucose monitoring and insulin titration. Patient has new WAREHOUSE SHIFT SUPERVISOR now to help. Assessment & Plan (04/21/2024 1:43 PM EDT): Pt here for a follow up DM remains uncontrolled Glucometer shows average Previously pt's WAREHOUSE SHIFT SUPERVISOR told me she observed patient throwing away all her meds on multiple ocassions, so she suspects the reason why her DM is uncontrolled is due to the fact that patient is likely not taking any of her meds including her psychiatric meds She was supposed to be on a regimen of: Lantus 38 units sc q pm,Novolog flex insulin per sliding scale sliding scale.(FS 150-200 = 4 units, 201-250= 6 units, 251- 300= 8 units, 301-350= 10 units, >351= 12 units.) Although she admits she does not inject the Novolog. Metformin ER 500 mg po BID and Mounjaro 2.5 mg once a week.Off Trulicity because of Diarrhea , never really continued the Ozempic Hgb A1c 04/21/2024: 9.9 from 12.3 Eye exam here at [facility] with Dr Sanchez. Microalbumin checked on: 01/16/2020 was: 21 Pt on an PAT inhibitor. Patient no longer seeing Endocrinology Patient was referred to [facility] referral for med administration Pt reports compliance with Asa 81 mg po daily Pt advised to: adhere to diabetic diet check your blood sugars regularly check your feet on a daily basis 1 month follow up Assessment & Plan (10/26/2023 2:04 PM EDT): Assessment: - Not at goal of A1c less than 7% or fasting BG between 70-130 mg/dL per ADA guidelines. - On ASA: Y - On Statin: Y - Last Eye Exam: DUE - Last Dental Exam: DUE Plan/ Recommendations: - Come for IN-PERSON visit in 1 week to assess sensor readings. Monitoring: Hemoglobin A1c Date Value 09/30/2022 11.9 % 03/11/2022 11.5 % of total Hgb (H) 01/16/2020 10.9 % of total Hgb (H) Hemoglobin A1C (%) Date Value 10/20/2023 12.3 (A) 11/27/2022 10.7 (A) LDL Cholesterol (mg/dL (calc)) Date Value 03/11/2022 68 HDL Cholesterol (mg/dL) Date Value 03/11/2022 65 No results found for: B12 Assessment & Plan (10/20/2023 2:48 PM EDT): Pt here for a follow up DM remains uncontrolled Glucometer shows average 355 WAREHOUSE SHIFT SUPERVISOR told me she observed patient throwing away all her meds on multiple ocassions, so she suspects the reason why her DM is uncontrolled is due to the fact that patient is likely not taking any of her meds including her psychiatric meds She is supposed to be on a regimen of: Lantus 30 units sc q pm,Novolog flex insulin per sliding scale sliding scale.(FS 150-200 = 4 units, 201-250= 6 units, 251- 300= 8 units, 301-350= 10 units, >351= 12 units.) Although she admits she does not inject the Novolog. Metformin ER 500 mg po BID .Off Trulicity because of Diarrhea , never really continued the Ozempic Hgb A1c 10/20/2023: 12.3 Eye exam here at [facility] with Dr Sanchez. Microalbumin checked on: 01/16/2020 was: 21 Pt on an PAT inhibitor. Patient no longer seeing Endocrinology Plan: [facility] referral for med administration Increase Lantus to 38 units subcutaneous q pm Add Mounjaro 2.5 mg once a week Pt reports compliance with Asa 81 mg po daily Pt advised to: adhere to diabetic diet check your blood sugars regularly check your feet on a daily basis 1 month follow up Assessment & Plan (01/26/2023 10:51 AM EDT): - Presents today to start CGM along with training - Sensor placed, and training complete. Daughter is helping patient at this time. - Follow-up in 1 month to record readings from CGM and being insulin titration process. Assessment & Plan (12/23/2022 4:14 PM EDT): - A1c is not at goal per ADA guidelines of less than 7%; 10.7% on 11/27/2022 - Continue to check blood sugars 3 times daily. Return to office next week for insulin management. - Freestyle CGM to be prescribed/ return to clinic for first use once approved. Assessment & Plan (11/27/2022 2:40 PM EDT): Pt here for a follow up DM remains uncontrolled Glucometer shows average 211 She is on a regimen of: Lantus 22 units sc q pm,Novolog flex insulin per sliding scale sliding scale.(FS 150-200 = 4 units, 201-250= 6 units, 251-300= 8 units, 301-350= 10 units, >351= 12 units.). Metformin ER 500 mg po BID .Off Trulicity because of Diarrhea Hgb A1c 11/27/2022: 10.7 Eye exam here at [facility] with Dr Sanchez. Microalbumin checked on: 01/16/2020 was: 21 Pt on an PAT inhibitor. Patient no longer seeing Endocrinology Plan: Increase Lantus to 30 units subcutaneous q pm Pt reports compliance with Asa 81 mg po daily Pt advised to: adhere to diabetic diet check your blood sugars regularly check your feet on a daily basis 1 month follow up Assessment & Plan (11/10/2022 4:05 PM EDT): - Reports that when BG readings are high; BP readings are also high but unable to verify this. - Unable to make an assessment Assessment & Plan (10/06/2022 5:22 PM EDT): - Most recent A1c of 11.9% is not at goal per ADA guidelines - Patient has been off Ozempic, Atorvastatin, and Metformin for 2+ months as refills were denied by Evy Sorensen office after prescriber left office. - Refills sent for Metformin, Atorvastatin, Lancets, Test Strips, Pen needles Hypertension 10/04/2012 Overview (12/16/2022): Intolerant to valsartan. Developed angioedema with lisinopril. No pharmacotherapy at this time. Patient reported she would like to cut down dose of hypertensive medication; but is currently not on any therapy. Has manager managed backup services, Minnie who is only available on Current therapy: - None Assessment & Plan (04/21/2024 1:27 PM EDT): Patient with elevated blood pressure In the past Intolerant to valsartan. Developed angioedema with lisinopril. Plan: start Amlodipine 2.5 mg po daily Assessment & Plan (12/16/2022 12:40 PM EDT): - BP at goal per JNC8 guidelines of less than 140/90 Assessment & Plan (11/10/2022 4:14 PM EDT): - Provided BP reading of 129/81 today with home BP monitor - Recommend in-person follow-up appointment for med rec; manager managed backup services only available on . - unable to make an assessment of BP control with 1 reading Assessment & Plan (10/06/2022 5:21 PM EDT): - Not on any anti-hypertensive medications - BP is stable at goal of less than 140/90 per JNC8 guidelines. Depressive disorder 03/04/2012 Assessment & Plan (04/21/2024 1:39 PM EDT): Pt is here for a follow up Under the care of Marly Key She is on a regimen of: Klonopin 0.5 at bedtime PRN Escitalopram 20 mg once daily Remeron 15 mg at bedtime Has a follow up Assessment & Plan (10/20/2023 2:35 PM EDT): Pt is here for a follow up Under the care of Marly Key She is on a regimen of: Trazodone 50 mg at bedtime prn insomnia Olanzapine 2.5 mg at bedtime Escitalopram 10 mg once daily Mirtazapine 7.5 mg at bedtime Has a follow up Assessment & Plan (11/27/2022 3:41 PM EDT): Pt is here for a recent discharge from [facility] for Depression and Suicidal ideation. She was admitted from 11/12 until 11/19 2022 While inpatient, Patient found to have h/o racing thoughts and insomnia. Medications were adjusted, escitalopram was started in place of citalopram, and olanzapine and trazodone were initiated for sleep and mood stabilization. Sleep improved and SI resolved. Patient was future oriented and stable for discharge home. Pt was referred to [facility]. She is on a regimen of: ? Trazodone 50 mg at bedtime prn insomnia ? Olanzapine 2.5 mg at bedtime ? Escitalopram 10 mg once daily ? Mirtazapine 7.5 mg at bedtime EKG today showed: NSR, HR 79 Qtc 475 Compared to previous EKG from 2019 Qtc has increased from 467 to 475 I contacted psychiatric prescriber I spoke to jorge alas for Marly Key and Dr Daniel Abbott. 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 Microscopic hematuria 03/04/2012 Encounters Date Type Department Care Team Description 04/05/2025 11:00 AM EDT Office Visit [facility] [address] [place] [address] Left leg swelling (Primary Dx); Left leg pain; Encounter for immunization 04/05/2025 Travel 04/05/2025 Telephone [facility] [address] [place] [address] Shine Holt MD Nurse Triage 04/05/2025 Refill [facility] [address] [place] [address] Shine Holt MD 03/16/2025 Telephone [facility] [address] [place] [address] Shine Holt MD No Show 03/15/2025 Telephone [facility] [address] [place], [place] [phone] Brittney Porter MA 03/14/2025 Refill [facility] [address] [place] [address] Shine Holt MD 03/13/2025 Refill [facility] [address] [place] [address] Shine Holt MD 03/09/2025 Refill [facility] [address] [place] [address] Caron Broderick ANP Type 2 diabetes mellitus with hyperglycemia, with long-term current use of insulin (CMS/HCC) 03/01/2025 Refill [facility] [address] [place] [address] Shine Holt MD Parkinson's disease without dyskinesia or fluctuating manifestations (CMS/HCC); Primary hypertension 02/27/2025 Refill [facility] [address] [place] [address] Shine Holt MD Type 2 diabetes mellitus with hyperglycemia, with long-term current use of insulin (CMS/HCC) 02/21/2025 Telephone [facility] [address] [place] [address] Shine Holt MD Prior Authorization 02/15/2025 Refill [facility] [address] [place] [address] Preeti Sanders RN Type 2 diabetes mellitus with hyperglycemia, with long-term current use of insulin (CMS/HCC) 02/15/2025 Refill [facility] [address] [place] [address] Shine Holt MD 02/13/2025 Refill [facility] [address] [place] [address] Alka Mena RN Type 2 diabetes mellitus with hyperglycemia, with long-term current use of insulin (CMS/[facility]) (Primary Dx) 02/12/2025 Orders Only [facility] External Provider, [facility] 01/31/2025 Telephone [facility] [address] [place] [address] Shine Holt MD Nurse Triage 01/23/2025 Orders Only GENERIC EXTERNAL DATA DEPARTMENT Provider, Generic External Data 01/22/2025 Orders Only GENERIC EXTERNAL DATA DEPARTMENT Provider, Generic External Data 01/21/2025 Orders Only GENERIC EXTERNAL DATA DEPARTMENT Provider, Generic External Data 01/20/2025 Orders Only [facility] External Provider, [facility] 01/13/2025 Telephone [facility] [address] [place] [address] Shine Holt MD 01/03/2025 Telephone [facility] [address] [place] [address] Shine Holt MD from Last 3 Months Immunizations Immunization Administration Dates Next Due Influenza Injectable Quadriv alant Preservative Free IIV4 MDCK 05/29/2021,05/16/2020 Influenza Quadrivalent Adjuvanted 09/24/2023 Influenza injectable quadriv alent preservative free 06/03/2022,09/14/2017,04/06/2015 Influenza, High Dose Seasona l, Preservative Free 04/05/2025,04/21/2024,04/08/2018 Influenza, IIV3, injectable 09/23/2017, 4,04/18/2013 Influenza, Split (incl. alisha fied surface antigen) 11/29/2013,03/04/2012 Pfizer Covid-19 Vaccine 12+ 09/09/2021, Pfizer Covid-19 Vaccine 12+ ole-sucrose ([place] Cap) 09/09/2021 Pneumococcal Polysaccharide PPSV23 09/14/2017,,04/13/2003 RSV Adjuvant 11/12/2023 TD (adult), 2 Lf tetanus tox oid, preservative free, adsorbed 08/20/2000,07/06/1989 Tdap 11/29/2013 Zoster, Recombinant 03/04/2022,12/31/2021 Social History Tobacco Use Types Packs/Day Years Used Date Smoking Tobacco: Never Passive Smoke Exposure: Never Smokeless Tobacco: Never Tobacco Cessation:Counseling Given: Not Answered Alcohol Use Standard Drinks/Week Comments Never 0 [...] not to disclose 2021 10:14 AM EDT Last Filed Vital Signs Vital Sign Reading [...] Mass Index 32.86 04/05/2025 11:32 AM EDT Plan of Treatment Upcoming Encounters Date Type Department Care Team (Late st Contact Info) Description 04/11/2025 11:00 AM EDT Office Visit [facility] [address] [place] [address] Shine Holt MD [address] [place] [address] 06/28/2025 10:30 AM EST Office Visit [facility] [address] [place] [address] Yaneth Gonzalez, OD [address] [place] [address] Health Maintenance Due Date Last Done Comments CT Colonography 1952 Colonoscopy 1952 Colorectal Cancer Screening 1952 FIT DNA/Cologuard 1952 FIT 1952 FOBT 1952 Sigmoidoscopy 1952 Diabetes: Foot Exam 1962 Hepatitis C Screening 1970 Pneumococcal Vaccine: 50+ Years (2 of 2 - PCV) 09/14/2018 09/14/2017, 04/18/2013, 04/13/2003 Diabetes: Urine Protein Screening 01/15/2021 01/16/2020 Lipid Panel 03/11/2023 03/11/2022, 01/16/2020 DTaP/Tdap/Td Vaccines (2 - Td or Tdap) 11/30/2023 11/29/2013, 08/20/2000, 07/06/1989 Mammogram 04/04/2024 04/04/2022, 02/03, 09/08/2017 Diabetes: Hemoglobin A1C 07/22/2024 024, 10/20/2023, 11/27/2022, Additional history exists COVID-19 Vaccine ( season) 2025 09/09/2021, 09/09/2021, 05/29/2021 SDOH Screening 03/28/2025 03/28/2024 Alcohol/Substance Use Screening 04/21/2025 04/21/2024 Depression Screening 04/21/2025 04/21/2024, 04/21/20 Eye Exam 12/26/2025 12/26/2024, 12/05, 12/26/2024, Additional history exists Tobacco Screening 04/05/2026 04/05/2025 Zoster Vaccines Completed 03/04/2022, 12/31/2021 RSV Patients and Patients Aged 60 years or older Completed 11/12/2023 Influenza Vaccine Completed 04/05/2025, , 09/24/2023, Additional history exists HIB Vaccines Aged Out No longer eligi ble based on patient's age to complete this topic HPV Vaccines Aged Out No longer eligi ble based on patient's age to complete this topic Hepatitis A Vaccines Aged Out No long er eligible based on patient's age to complete this topic Hepatitis B Vaccines Aged Out No long er eligible based on patient's age to complete this topic IPV Vaccines Aged Out No longer eligi ble based on patient's age to complete this topic Meningococcal B Vaccine Aged Out No l onger eligible based on patient's age to complete this topic Meningococcal Vaccine Aged Out No ivis rosa elena eligible based on patient's age to complete this topic RSV under 20 months Aged Out No longe r eligible based on patient's age to complete this topic Rotavirus Vaccines Aged Out No longer eligible based on patient's age to complete this topic Goals Goal Patient Goal Type Associated Problems Recent Progress Patient-Stated? Author Blood Pressure < 140/90 Blood Pressure Hypertension 142/92(2024 11:32 AM EDT) No Whit Rodriguez, PharmD Hemoglobin A1c < 7.0 Result Component Type 2 diabetes mellitus with hyperglycemia, with long-term current use of insulin 9.9( 1:29 PM EDT) No Whit Rodriguez, PharmSteve Note: Most recent A1c likely mis-represented as [...] 9:57 AM EDT) No Whit Rodriguez PharmD Procedures Procedure Name Priority Date/Time Associated Diagnosis Comments MR BRAIN WO CONTRAST Routine 02/12/2025 7:39 PM EDT GLUCOSE, WHOLE BLOOD Routine 02/12/2025 12:48 PM EDT CTA HEAD NECK W AND WO CONTRAST Routine 02/12/2025 12:04 PM EDT CULTURE, URINE, ROUTINE Routine 02/12/2025 12:00 AM EDT GLUCOSE, WHOLE BLOOD Routine 01/23/2025 7:02 AM EDT GLUCOSE, WHOLE BLOOD Routine 01/22/2025 8:47 PM EDT GLUCOSE, WHOLE BLOOD Routine 01/22/2025 4:03 PM EDT GLUCOSE, WHOLE BLOOD Routine 01/22/2025 11:03 AM EDT GLUCOSE, WHOLE BLOOD Routine 01/22/2025 7:32 AM EDT GLUCOSE, WHOLE BLOOD Routine 01/21/2025 10:53 PM EDT GLUCOSE, WHOLE BLOOD Routine 01/21/2025 6:51 PM EDT CTA HEAD NECK W AND WO CONTRAST Routine 01/21/2025 5:00 PM EDT SARS COV2/INFLUENZA A/B AND RSV RNA QL NAAT Routine 01/21/2025 12:27 PM EDT GLUCOSE, WHOLE BLOOD Routine 01/21/2025 11:35 AM EDT XR KUB AND UPRIGHT 2 VIEWS Routine 01/20/2025 10:32 PM EDT POCT GLYCATED HEMOGLOBIN, TOTAL Routine 04/21/2024 1:29 PM EDT Type 2 diabetes mellitus with hyperglycemia, with long-term current use of insulin ([facility]) MAMMOGRAM GENERIC Routine 04/04/2022 3:2 4 PM EDT LIPID PANEL, STANDARD Routine 03/11/2022 3:51 PM EDT ALBUMIN, RANDOM URINE W/CREATININE Routine 01/16/2020 10:40 AM EDT from Last 3 Months or Most Recently Relevant to Health Maintenance Results * MR Brain w/o Contrast (02/12/2025 7:39 PM EDT) Anatomical Region Laterality Modality Brain Magnetic Resonan ce 02/12/2025 7:39 PM EDT Narrative 02/12/2025 7:40 PM EDT [place] [address] Magnetic Resonance Report Signed Patient: Snehal Ramos MR#: [id number] 7 : 1950 Acct:[id number] Age/Sex: 74 / F ADM Date: 02/12/25 Loc: .ED Attending Dr: Ordering Physician: Bryce Arnett MD Date of Service: 02/12/25 Procedure(s): MR head/brain wo con Accession Number(s): [id number] cc: Bryce Arnett MD; Shine Mcmanus MD CLINICAL HISTORY: ? CVA ct showed ? cva MR Brain without gadolinium Comparison: CT/REG/SR - CT ANGIO HEAD NECK - 02/12/25 10:[address] - CT ANGIO HEAD NECK - 02/12/25 10:00 EDT Findings: No restricted diffusion. No intra-axial mass or hemorrhage. Mild white matter disease, compatible with small-vessel ischemic change. No midline shift. No hydrocephalus. Vascular flow voids are intact. The orbits are normal. The sinuses and mastoid air cells are clear. No focal bone lesion. IMPRESSION: No acute infarct. This document has been electronically signed by: Taylor Akers MD on 02/12/2025 19:39:29 Dictated By: Taylor Akers MD Signed By: <Electronically signed by Taylor Akers MD in OV> 02/12/251939 DD/ 38 TD/TT: 02/12/251938 Cheese Specialist: Procedure Note Donotuseinterpreter, Image - 02/12/2025 [place] [address] Magnetic Resonance Report Signed Patient: Snehal RamosMR#: [id number] 7 : 1950cct:[id number] Age/Sex: 74 / FADM Date: 02/12/25 Loc: .ED Attending Dr: Ordering Physician: Bryce Arnett MD Date of Service: 02/12/25 Procedure(s): MR head/brain wo con Accession Number(s): [id number] cc: Bryce Arnett MD; Shine Mcmanus MD CLINICAL HISTORY: ? CVA ct showed ? cva MR Brain without gadolinium Comparison: CT/REG/SR - CT ANGIO HEAD NECK - 02/12/25 10:[address] - CT ANGIO HEAD NECK - 02/12/25 10:00 EDT Findings: No restricted diffusion. No intra-axial mass or hemorrhage. Mild white matter disease, compatible with small-vessel ischemic change. No midline shift. No hydrocephalus. Vascular flow voids are intact. The orbits are normal. The sinuses and mastoid air cells are clear. No focal bone lesion. IMPRESSION: No acute infarct. This document has been electronically signed by: Taylor Akers MD on 02/12/2025 19:39:29 Dictated By: Taylor Akers MD Signed By: <Electronically signed by Taylor Akers MD in OV> 02/12/251939 DD/ 38 TD/TT: 02/12/251938 Cheese Specialist: [facility] External Provider IMG MRI PROCEDURES Edited Result - Final * (ABNORMAL) Glucose, Whole Blood (02/12/2025 12:48 PM EDT) Only the most recent of9 resultswithin the time period is included. Glucose, Whole Blood 210(H) 60 - 115 mg/dL [facility] Comment:METER #: [id number] 02/12/2025 12:4 8 PM EDT 02/12/2025 12:51 PM EDT us Generic External Data Provider LAB BLOOD ORDERAB LES Final Result [facility] [address] [place] [address] [phone] * CTA Head Neck w/ and w/o Contrast (02/12/2025 12:04 PM EDT) Only the most recent of2 resultswithin the time period is included. Anatomical Region Laterality Modality Head, Neck Computed Tomogra phy 02/12/2025 12:0 4 PM EDT Narrative 02/12/2025 12:06 PM EDT [address] [address] [address] Scan Report Signed Patient: Snehal Ramos MR#: [id number] 7 : 1950 Acct:[id number] Age/Sex: 74 / F ADM Date: 02/12/25 Loc: .ED Attending Dr: Ordering Physician: Bryce Arnett MD Date of Service: 02/12/25 Procedure(s): CT angio head neck Accession Number(s): [id number] cc: Bryce Arnett MD; Shine Mcmanus MD Report Number: [id number]: Total DLP = 1510.00 mGy-cm CLINICAL HISTORY: sevre rader CT Head without contrast. CT angiography head and neck with contrast. 3D Postprocessing. Comparison: 01/21/2025 Findings: HEAD CT: No intra-axial mass, midline shift, hydrocephalus, or acute hemorrhage. Apparent decreased browning-white matter differentiation in the medial aspect of the right occipital lobe seems to be artifactual versus less likely due to acute infarct. Correlate clinically. Mild age-related cerebral hemispheric white matter ischemic changes. There is no sinus or mastoid fluid. The orbits are unremarkable. No skull fracture. HEAD AND NECK CTA: No significant arterial stenosis, aneurysm, dissection, or AVM. No abnormal intracranial enhancement. Patent dural venous sinuses. Lung apices clear. Spinal degenerative changes. No acute fracture. IMPRESSION: No acute intracranial hemorrhage. Apparent decreased browning-white matter differentiation in the medial aspect of the right occipital lobe seems to be artifactual versus less likely due to acute infarct. Correlate clinically. No significant arterial stenosis, aneurysm, dissection, or AVM. This document has been electronically signed by: Janey Sanford MD on 02/12/2025 12:04:56 Dictated By: Janey Sanford MD Signed By: <Electronically signed by Janey Sanford MD in OV> 02/12/25 1205 DD/ 1204 TD/TT: 02/12/25 120 Cheese Specialist: Procedure Note Donotuseinterpreter, Image - 02/12/[address] [place] [address] [address] Scan Report Signed Patient: Snehal RamosMR#: [id number] 7 : 1950cct:[id number] Age/Sex: 74 / FADM Date: 02/12/25 Loc: HO.ED Attending Dr: Ordering Physician: Bryec Arnett MD Date of Service: 02/12/25 Procedure(s): CT angio head neck Accession Number(s): [id number] cc: Bryce Arnett MD; Shine Mcmanus MD Report Number: [id number]: Total DLP = 1510.00 mGy-cm CLINICAL HISTORY: sevre rader CT Head without contrast. CT angiography head and neck with contrast. 3D Postprocessing. Comparison: 01/21/2025 Findings: HEAD CT: No intra-axial mass, midline shift, hydrocephalus, or acute hemorrhage. Apparent decreased browning-white matter differentiation in the medial aspect of the right occipital lobe seems to be artifactual versus less likely due to acute infarct. Correlate clinically. Mild age-related cerebral hemispheric white matter ischemic changes. There is no sinus or mastoid fluid. The orbits are unremarkable. No skull fracture. HEAD AND NECK CTA: No significant arterial stenosis, aneurysm, dissection, or AVM. No abnormal intracranial enhancement. Patent dural venous sinuses. Lung apices clear. Spinal degenerative changes. No acute fracture. IMPRESSION: No acute intracranial hemorrhage. Apparent decreased browning-white matter differentiation in the medial aspect of the right occipital lobe seems to be artifactual versus less likely due to acute infarct. Correlate clinically. No significant arterial stenosis, aneurysm, dissection, or AVM. This document has been electronically signed by: Janey Sanford MD on 02/12/2025 12:04:56 Dictated By: Janey Sanford MD Signed By: <Electronically signed by Janey Sanford MD in OV> 02/12/25 1205 DD/ 1204 TD/TT: 02/12/25 1204 Cheese Specialist: [facility] External Provider IMG CT PROCEDURES Edited Result - Final * Culture, Urine, Routine (02/12/2025 12:00 AM EDT) Urine Urine specimen obtained by clean catch procedure / Unknown 02/12/2025 02/12/2025 Comment:CC Narrative [facility] - 02/13/2025 11:02 AM EDT Urine Culture No growth. Specimen Source: Urine clean catch Generic External Data Provider LAB MICROBIOLOGY - GENERAL ORDERABLES Final Result [facility] [address] [place] [address] [phone] * SARS-CoV-2 RNA, Influenza A/B, and RSV RNA, Ql NAAT (01/21/2025 12:27 PM EDT) Influenza A PCR NEGATIVE Negative [facility] Influenza B PCR NEGATIVE Negative [facility] Resp Syncy Virus RNA Qual PCR NEGATIVE Negative [facility] SARS COV2 PCR NEGATIVE Negative [facility] Comment:All test results mus t be correlated with clinical findings.Negative results do not preclude SARS-CoV2, influenza Avirus, influenza B virus and/or RSV infectionand should not be used as the sole basis for treatment orother patient management decisions. Negative results must becombined with clinical observations, patient history, andepidemiological information.This test has not been evaluated for monitoring treatment ofinfection.This test has been authorized by the FDA under an EmergencyUse Authorization (EUA) for use by authorized laboratories.Testing performed on the [employer] GeneXpert utilizingreal-time RT-PCR.All SARS CoV2 and positive influenza A/B results arereported to [facility]. 01/21/2025 12:2 7 PM EDT 01/21/2025 12:30 PM EDT us Generic External Data Provider LAB MICROBIOLOGY - GENERAL ORDERABLES Final Result Performing Organization Address City/State/[facility] Co de Phone Number [facility] [address] [place] [phone] * XR KUB and Upright 2 Views (01/20/2025 10:32 PM EDT) Anatomical Region Laterality Modality Radiographic Ya ging 01/20/2025 10:3 2 PM EDT Narrative 01/20/2025 10:33 PM EDT [address] [address] XRay Report Signed Patient: Snehal Ramos MR#: [id number] 7 : 1950 Acct:[id number] Age/Sex: 74 / F ADM Date: 01/20/25 Loc: .ED Attending Dr: Ordering Physician: Pascual Kay MD Date of Service: 01/20/25 Procedure(s): XR KUB Accession Number(s): [id number] cc: Shine Mcmanus MD; Pascual Kay MD CLINICAL HISTORY: ABD pain 1 view abdomen Comparison: None provided Findings: Moderate stool burden throughout the colon and rectum. No bowel obstruction. No pneumoperitoneum or pneumatosis. No abnormal calcifications. No acute fractures. IMPRESSION: Moderate stool burden throughout the colon and rectum. No bowel obstruction. This document has been electronically signed by: Tommy Delgadillo MD on 01/20/2025 22:32:20 Dictated By: Tommy Delgadillo MD Signed By: <Electronically signed by Tommy Delgadillo MD in OV> 01/20/252232 DD/ 31 TD/TT: 01/20/252231 Cheese Specialist: Procedure Note Donotuseinterpreter, Image - 01/20/2025 [place] [address] XRay Report Signed Patient: Snehal RamosMR#: [id number] 7 : 1950cct:[id number] Age/Sex: 74 / FADM Date: 01/20/25 Loc: .ED Attending Dr: Ordering Physician: Pascual Kay MD Date of Service: 01/20/25 Procedure(s): XR KUB Accession Number(s): [id number] cc: Shine Mcmanus MD; Pascual Kay MD CLINICAL HISTORY: ABD pain 1 view abdomen Comparison: None provided Findings: Moderate stool burden throughout the colon and rectum. No bowel obstruction. No pneumoperitoneum or pneumatosis. No abnormal calcifications. No acute fractures. IMPRESSION: Moderate stool burden throughout the colon and rectum. No bowel obstruction. This document has been electronically signed by: Tommy Delgadillo MD on 01/20/2025 22:32:20 Dictated By: Tommy Delgadillo MD Signed By: <Electronically signed by Tommy Delgadillo MD in OV> 01/20/252232 DD/ 31 TD/TT: 01/20/252231 Cheese Specialist: [facility] External Provider IMG XR PROCEDURES Edited Result - Final * (ABNORMAL) POCT HGB A1C (04/21/2024 1:29 PM EDT) Hemoglobin A1C 9.9(A) 4.0 - 6.0 % QC Media Lot # [id number] Lot# Expiration Date [id number] Blood 04/21/2024 1:29 PM EDT us Shine Pike MD POINT OF CARE TEST EN TER/EDIT ORDERABLES Final Result * Mammography Report 1 (04/04/2022 3:24 PM EDT) Anatomical Region Laterality Modality Breast Bilateral Mammography 04/04/2022 3:24 PM EDT Narrative 04/08/2022 8:19 AM EDT Refer to the Notes tab for result details [facility] Procedure: Mammography Report 1 Procedure Note ProviderCynthia MD - 09/28/2022 Refer to the Notes tab for result details [facility] Procedure: Mammography Report 1 us Shine Pike MD IMG BI PROCEDURES Fin al Result * LIPID PANEL, STANDARD (03/11/2022 3:51 PM EDT) Chol/HDLC Ratio 2.3 <5.0 (calc) [facility] Cholesterol, Total 148 <200 mg/dL [facility] HDL Cholesterol 65 > OR = 50 mg/dL [facility] LDL Cholesterol 68 mg/dL (calc) [facility] Comment: Reference range: <100 Desirable range <100 mg/dL for primary prevention; <70 mg/dL for patients with CHD or diabetic patients with > or = 2 CHD risk factors. LDL-C is now calculated using the Gaurang-Hattie calculation, which is a validated novel method providing better accuracy than the Friedewald equation in the estimation of LDL-C. Gaurang PRESCOTT et al. NATALIE. 2013;310(19): 4861-8722 (http://education.[employer].com/faq/PUC275) Non-HDL Cholesterol 83 <130 mg/dL (calc) [facility] Comment: For patients with diabetes plus 1 major ASCVD risk factor, treating to a non-HDL-C goal of <100 mg/dL (LDL-C of <70 mg/dL) is considered a therapeutic option. Triglycerides 73 <150 mg/dL [facility] 03/11/2022 3:51 PM EDT us Sharon Hawkins DO LAB BLOOD ORDERABLES Final R esult Performing Organization Address [facility] Co de Phone Number [facility] [address] * ALBUMIN, RANDOM URINE W/CREATININE (01/16/2020 10:40 AM EDT) Microalbumin Urine 4.9 See Note: mg/dL [facility] Comment: Reference Range: Reference Range Not established Microalb/Creat Ratio 21 <30 mcg/mg creat [facility] Comment: The ADA defines abnormalities in albumin excretion as follows: Category Result (mcg/mg creatinine) Normal <30 Microalbuminuria 30-299 Clinical albuminuria > OR = 300 The ADA recommends that at least two of three specimens collected within a 3-6 month period be abnormal before considering a patient to be within a diagnostic category. Microalbumin Urine 4.9 See Note: mg/dL [facility] Comment: Reference Range: Reference Range Not established Microalb/Creat Ratio 21 <30 mcg/mg creat [facility] Comment: The ADA defines abnormalities in albumin excretion as follows: Category Result (mcg/mg creatinine) Normal <30 Microalbuminuria 30-299 Clinical albuminuria > OR = 300 The ADA recommends that at least two of three specimens collected within a 3-6 month period be abnormal before considering a patient to be within a diagnostic category. Creatinine, Urine 239 20 - 275 mg/dL [facility] Creatinine, Urine 239 20 - 275 mg/dL [facility] 01/16/2020 10:4 0 AM EDT us Shine Pike MD LAB URINE ORDERABLES Final Result Performing Organization Address [facility] Co de Phone Number [facility] [address] from Last 3 Months or Most Recently Relevant to Health Maintenance Insurance [employer] (O D-SNP) [place] [id number] Care Teams English Composition Teacher Relationship Specialty Start Date End Date Shine Holt MD [address] [place] [address] PCP - General Internal Medicine 03/30/14 Whit Rodriguez PharmD [address] [place] [phone] Pharmacist Internal Medicine 10/06/22 Garrett Shah 12/11/22
--- OUTSIDE RECORDS SUMMARY | 2025-04-05 16:33 | XMS_ITS | Encounter Summary ---
Author Organization [employer] Address [address] [place] [address] Care Team Providers Care Fence Laborer Name Role Phone Shine Holt MD Primary Care Provide r Whit Rodriguez PharmD Unavailable [phone] Reason for Visit * Reason Comments Med Refill Encounter Details Date Type Department Care Team ([facility] st Contact Info) Description 02/15/2025 Refill [facility] [address] [place], [place] [phone] Shine Holt MD [address] [place], [place] [phone] Social History Tobacco Use Types Packs/Day Years [...] Description 04/11/2025 11:00 AM EDT Office Visit [facility] [address] [place] [address] Shine Holt MD [address] [place] [address] 06/28/2025 10:30 AM EST Office Visit [facility] [address] [place] [address] Yaneth Gonzalez OD [address] [place] [address] documented as of this encounter Goals Goal [...] documented as of this encounter Care Teams Fence Laborer Relationship Specialty Start Date End Date Shine Holt MD [address] [place] [address] PCP - General Internal Medicine 03/30/14 Whit Rodriguez PharmD [address] [place] [address] Pharmacist Internal Medicine 10/06/22 Garrett Shah 12/11/22 documented as of this encounter
--- OUTSIDE RECORDS SUMMARY | 2025-04-05 16:33 | XMS_ITS | Encounter Summary ---
Author Organization [employer] Address [address] [place] [address] Care Team Providers Care Hand Bander Name Role Phone Shine Holt MD Primary Care Provide r Whit Rodriguez PharmD Unavailable [phone] Encounter Details Date Type Department Care Team (Latest Contact Info) Description 04/05/2025 Travel Social History Tobacco Use Types Packs/Day Years [...] Description 04/11/2025 11:00 AM EDT Office Visit [facility] [address] [place] [phone] Shine Holt MD [address] [place] [address] 06/28/2025 10:30 AM EST Office Visit [facility] [address] [place] [address] Yaneth Gonzalez, KAYA [address] [place] [address] documented as of this encounter Goals Goal [...] documented as of this encounter Care Teams Hand Bander Relationship Specialty Start Date End Date Shine Holt MD [address] [place] [phone] PCP - General Internal Medicine 03/30/14 Whit Rodriguez PharmD [address] [place] [phone] Pharmacist Internal Medicine 10/06/22 Garrett Shah 12/11/22 documented as of this encounter
== END 2025-04-05 15:57 | disposition home or self-care (01) ==
LOC: HO.US 15:56
PROVIDERS: PCP Internal Medicine; Visit Provider Nurse Practitioner Family
DX: R60.0 Localized edema (principal)
CPT/HCPCS: 93971

== ENCOUNTER → 2025-04-05 16:20 | Outpatient (BNV) | payer OTHER, SELFPAY | PROVIDERS: PCP Internal Medicine; Visit Provider Radiology Diagnostic Radiology | DX: R22.42 Localized swelling, mass and lump, left lower limb (principal) | CPT/HCPCS: 93971 ==